=== PATIENT | female | born 1965 | race Caucasian/White ===

== ENCOUNTER → 2017-07-27 16:32 | Outpatient (CLI) | payer BC, SELFPAY ==
[2017-08-02 12:16] LABS: HPV APTIMA, High Risk Negative (Negative)
== END ==
PROVIDERS: Visit Provider Obstetrics & Gynecology
DX: Z12.4 Encounter for screening for malignant neoplasm of cervix (principal)
CPT/HCPCS: 88175; G0145

== ENCOUNTER 2017-08-02 07:11 | Day surgery (SDC) | payer BC, SELFPAY ==
[2017-08-02 07:31] VITALS: BP 114/94; PULSE 112; RESP 18; TEMP 37.2; O2SAT 94; BMI 49.6
--- NOTE | 2017-08-02 08:30 | COLBX_PTH ---
PATIENT: HONG KHAN LOC: EN U#:[id number] AGE/SX: 51/F ROOM: RE08/02/[address]: Dr. Devonte Julien MD : 1965 BED: DIS: 08/02/2017 SPEC #: [id number] RECD: 08/02/17 10:09 STATUS: SAUL NIKA #: [id number] ISIDRO: 08/02/17 08:[address]: Devonte Julien DEPT: SURGICAL PATHOLOGY RECD BY: Rasheed Drake ENTERED: 08/02/17 10:44 SP TYPE: COLON BX OTHR DR: Dr. Reyes Grimaldo MD Tissues: A - Ascending colon B - Transverse colon C - Sigmoid colon biopsy Procedures: Surgery Specimen Level IV HEADER OPERATION: Colonoscopy PRE-OP DIAGNOSIS: Screening TISSUE SUBMITTED: A ? Ascending colon polyp, B ? Transverse colon polyp (2), C ? Sigmoid polyp MICROSCOPIC DIAGNOSIS A. Ascending colon polyp, biopsy: Fragments of tubular adenoma. B. Transverse colon polyp, biopsy: Fragments of tubular adenoma. C. Sigmoid polyp, polypectomy: Tubular adenoma. SJ:sue 08/03/17 MICROSCOPIC DESCRIPTION Slides are reviewed. GROSS DESCRIPTION A - Received in fixative is one container labeled with the patient's name and designated ascending colon polyp. The specimen consists of multiple irregular fragments of light riley soft tissue that in aggregate measure 0.6 x 0.2 x 0.1 cm. The specimen is totally submitted in one cassette. B - Received in fixative is one container labeled with the patient's name and designated transverse colon polyp. The specimen consists of multiple irregular fragments of light riley soft tissue that in aggregate measure 0.6 x 0.3 x 0.1 cm. The specimen is totally submitted in one cassette. C - Received in fixative is one container labeled with the patient's name and designated sigmoid polyp. The specimen consists of a pink-riley polyp measuring 0.7 x 0.5 x 0.2 cm. The specimen is bisected and totally submitted in one cassette. / AM:sue 08/02/17 TC:1 CPT: 63432 x3
--- NOTE | 2017-08-02 08:45 | PCM.HP.STD ---
Problem List (1) Colon cancer screening Status: Acute History of Present Illness Date of Admission: 08/02/17 The patient is a 51 year old F who presents for screening colonoscopy. Past Medical History Allergies hydrocodone bitartrate [From Vicodin] Allergy (Verified 07/26/17 15:55) Rash erythromycin base Adverse Reaction (Verified 07/26/17 15:55) Vomiting Penicillins [PCN] Adverse Reaction (Verified 07/26/17 15:55) Upset Stomach Home Medications: Ambulatory Orders Medication Instructions Recorded Hydrochlorothiazide 12.5 mg PO DAILY 05/08/14 Ibuprofen [Advil] 200 mg PO Q4H PRN PRN 05/08/14 Ketorolac [Toradol] 20 mg PO PRN PRN 05/08/14 Potassium Chloride [Klor-Con 10] 10 meq PO DAILY 05/08/14 Smoking Status: Former smoker - *Family History Maternal History Items: No pertinent history VTE Information - Inpt Only VTE Present on Admission: No VTE Mechan Device Prophylaxis: None VTE Pharm Prophylaxis ordered?: No Reason prophylaxis not ordered:: Treatment Not Indicated Patient Problems: Active and Suspected Problems Colon cancer screening (Acute) - Physical Exam Lungs: Clear to auscultation Cardiovascular: Regular rate, Regular Rhythm, No murmurs Abdomen: Bowel Sounds Present, Soft, Non Tender, Non-Distended, Obese Vital Signs Temp Pulse Resp BP Pulse Ox 99.0 F 112 H 18 114/94 H 94 08/02/17 07:31 08/02/17 07:31 08/02/17 07:31 08/02/17 07:31 08/02/17 07:31 Oxygen Delivery Method Room Air Weight: 293 lb 14.019 oz Body Mass Index (BMI) 49.6 Assessment/Plan Active and Suspected Problems Colon cancer screening (Acute) My plan is to perform a colonoscopy on her.
--- NOTE | 2017-08-02 08:48 | PCM.OPRPT ---
Problem List (1) Colon cancer screening Status: Acute Report of Operation Date of Procedure: 08/02/17 Pre-Operative Diagnosis: z12.11 screening colonoscopy Post-Operative Diagnosis: Same Surgery/Procedure Performed:: 39090 colonoscopy with multiple snare polypectomies Description of Surgical Findings:: Patient had a polyp in the ascending colon, 2 in the transverse colon, and one large one in the sigmoid colon Type of Anesthesia:: MAC Anesthesiologist: Mustapha Vazquez Description of Procedure: Patient was brought in the operating room placed in supine position under excellent MAC anesthetic was placed in the left lateral decubitus position the scope was inserted into the rectum. Scope was directed through the sigmoid colon, descending colon, transverse colon, ascending colon, to the cecum. Operative findings: 1. Cecum: Normal appearance no mass lesions normal ileocecal valve. 2. Ascending colon: Normal appearance no mass lesions. Small polyp was identified and removed with snare cautery technique it was grasped with a basket and brought back to the channel the scope 3. Transverse colon: Normal appearance no mass lesions. 2 small polyps were identified and removed removed with snare cautery technique. One was brought back to the channel the scope the other was brought back after it was grasped with a basket. 4. Descending colon: Normal appearance no mass lesions 5. Sigmoid colon: Normal appearance diffuse scattered diverticuli were identified. Patient had a large polyp on a long stalk which was removed with snare cautery technique. I grasped it with a basket and brought it back as I exited the rectum. 6. Rectum: Small polyp was identified with a small stock I placed a snare around this and remove the polyp without difficulty and brought back to the channel the scope. Had excellent hemostasis. The scope was withdrawn. Digital rectal exam was performed showing a smooth anus with no masses . The patient will need another colonoscopy in 3 years. - Admit VTE Documentation VTE Present on Admission: No VTE Mechan Device Prophylaxis: None VTE Pharm Prophylaxis ordered?: No Reason prophylaxis not ordered:: Treatment Not Indicated
[2017-08-02 08:50] VITALS: BP 103/62; BP 114/94; PULSE 92; RESP 20; TEMP 36.9; O2SAT 94
[2017-08-02 08:55] VITALS: BP 114/94; BP 88/61; PULSE 93; RESP 16; O2SAT 92
[2017-08-02 09:00] VITALS: BP 107/67; BP 114/94; PULSE 88; RESP 16; O2SAT 92
[2017-08-02 09:05] VITALS: BP 114/94; BP 89/64; PULSE 85; RESP 16; TEMP 37.2; O2SAT 96
[2017-08-02 09:26] VITALS: BP 114/94
== END 2017-08-02 09:37 | disposition home or self-care (01) ==
LOC: EN 07:12 → AC 07:13
PROVIDERS: Family Provider Family Medicine; PCP Family Medicine; Visit Provider Surgery
PROC: 0DJD8ZZ Inspection of Lower Intestinal Tract, Via Natural or Artificial Opening Endoscopic (ICD-10-PCS; CPT 45378; principal; 2017-08-02 08:25)
DX: Z12.11 Encounter for screening for malignant neoplasm of colon (principal); D12.2 Benign neoplasm of ascending colon; D12.5 Benign neoplasm of sigmoid colon; D12.3 Benign neoplasm of transverse colon; I10 Essential (primary) hypertension; E04.1 Nontoxic single thyroid nodule; G47.30 Sleep apnea, unspecified; K21.9 Gastro-esophageal reflux disease without esophagitis; Z78.0 Asymptomatic menopausal state; Z79.899 Other long term (current) drug therapy; Z87.891 Personal history of nicotine dependence
CPT/HCPCS: 45385; 88305; J7120; J1610

== ENCOUNTER → 2017-08-23 14:19 | Outpatient (CLI) | payer BC, SELFPAY ==
--- NOTE | 2017-08-23 14:23 | BI_ITS ---
MAMMOGRAPHY - BILATERAL SCREENING REASON FOR EXAM: Female, 51 years old. Routine annual screening examination. PERTINENT HISTORY: Remote left excisional breast biopsy. TECHNIQUE: Digital bilateral breast dolores (3D mammographic acquisition) in the CC and MLO projections. 2-D mediolateral oblique (MLO) and craniocaudad (CC) views of both breasts were obtained. CAD: Full Field Digital Mammography with Computer Added Detection was performed. COMPARISON: Comparison is made with prior outside examination dated October 30, 2014. FINDINGS: Breast Composition: There are scattered areas of fibroglandular density. There are no dominant masses or suspicious calcifications. Stable bilateral small benign appearing axillary lymph nodes. No other significant abnormalities are identified. There has been no significant change since the prior study. BI/SCREENING MAMM (CAD), BILAT IMPRESSION: Stable bilateral screening mammogram. Yearly follow-up mammogram recommended. (A) ASSESSMENT CATEGORY: BIRADS Category 2: Benign. A letter regarding these results will be sent to the patient by the facility within 30 days. Approximately 10% of breast cancers are not detected by mammography. A normal mammogram should not delay biopsy of a clinically suspicious abnormality. [id number] Electronically Signed: Jarrett Hernández MD at 9:01 EDT Tel [phone], Service support ,
== END ==
PROVIDERS: Family Provider Family Medicine; PCP Family Medicine; Visit Provider Obstetrics & Gynecology
DX: Z12.31 Encounter for screening mammogram for malignant neoplasm of breast (principal)
CPT/HCPCS: 77063; 77067

== ENCOUNTER → 2019-05-10 14:28 | Outpatient (CLI) | payer BC, SELFPAY ==
[2019-05-10 15:31] LABS: Absolute Lymphocyte Count 3.39 X10^3/uL (0.83-4.51); Absolute Neutrophil Count 4.2 X10^3/uL (2.0-7.7); Basophil# 0.03 X10^3/uL; Basophil% 0.4 % (0-1); Eosinophil# 0.24 X10^3/uL; Eosinophils% 2.8 % (0-5); Hematocrit 46.8 % (37-47); Hemoglobin 14.1 g/dL (12.0-15.0); Lymphocyte # 3.39 X10^3/ul (4.0); Lymphocyte % 40.1 % (19-41); Mean Corp Hgb Conc 30.1 g/dL (32-36); Mean Corpuscular Hgb 25.9 pg (27.0-32.0); Mean Platelet Vol. 9.1 fl (6.2-12.0); Monocyte# 0.63 X10^3/uL; Monocyte% 7.4 % (0-10); NRBC Flagged by Analyzer 0 % (0-5); Neutrophil # 4.15 X10^3/uL (2.7-7.7); Neutrophil % 49.1 % (47-70); Platelet Count 388 K/mm3 (150-450); RBC Distribution Width CV 15.9 % (11.6-14.6); RBC Distribution Width SD 49.5 fl (35.1-43.9); Red Blood Count 5.44 M/mm3 (4.2-5.4); White Blood Count 8.5 K/mm3 (4.4-11.0)
[2019-05-10 16:16] LABS: Anion Gap 4 (5-15); BUN 9 mg/dL (7-18); BUN/Creat Ratio 8.9 RATIO (10-20); Calcium,Total 9.6 mg/dL (8.5-10.1); Chloride 102 mmol/L (98-107); Creatinine, Serum 1.01 mg/dL (0.55-1.02); EST Glomerular Filtration Rate 61 mL/min (>60); Est Glom Filt Rate - Afr Amer 74 mL/min (>60); Glucose 81 mg/dL (74-106); Potassium 3.5 mmol/L (3.5-5.1); Sodium Level 137 mmol/L (136-145); Thyroid Stim Hormone (TSH) 5.01 uIU/mL (0.358-3.74)
== END ==
PROVIDERS: PCP Family Medicine; Visit Provider Family Medicine
DX: I10 Essential (primary) hypertension (principal); E04.2 Nontoxic multinodular goiter
CPT/HCPCS: 36415; 80048; 84443; 85025

== ENCOUNTER → 2019-11-08 11:38 | Outpatient (CLI) | payer BC, SELFPAY ==
[2019-11-08 15:03] LABS: Absolute Lymphocyte Count 2.87 X10^3/uL (0.83-4.51); Absolute Neutrophil Count 4.6 X10^3/uL (2.0-7.7); Basophil# 0.04 X10^3/uL; Basophil% 0.5 % (0-1); Eosinophil# 0.16 X10^3/uL; Eosinophils% 1.9 % (0-5); Hematocrit 45.8 % (37-47); Hemoglobin 13.5 g/dL (12.0-15.0); Lymphocyte # 2.87 X10^3/ul (4.0); Lymphocyte % 34.2 % (19-41); Mean Corp Hgb Conc 29.5 g/dL (32-36); Mean Corpuscular Hgb 25.5 pg (27.0-32.0); Mean Corpuscular Volume 86.6 fL (81-99); Mean Platelet Vol. 9.1 fl (6.2-12.0); Monocyte# 0.64 X10^3/uL; Monocyte% 7.6 % (0-10); NRBC Flagged by Analyzer 0 % (0-5); Neutrophil # 4.64 X10^3/uL (2.7-7.7); Neutrophil % 55.4 % (47-70); Platelet Count 418 K/mm3 (150-450); RBC Distribution Width CV 16.6 % (11.6-14.6); RBC Distribution Width SD 50.1 fl (35.1-43.9); Red Blood Count 5.29 M/mm3 (4.2-5.4); White Blood Count 8.4 K/mm3 (4.4-11.0)
[2019-11-08 15:37] LABS: Ferritin 57 ng/mL (8-252); Iron 41 ug/dL (50-170); T4 Free Direct 1.07 ng/dL (0.76-1.46); Thyroid Stim Hormone (TSH) 3.11 uIU/mL (0.358-3.74)
== END ==
PROVIDERS: PCP Family Medicine; Visit Provider Family Medicine
DX: D64.9 Anemia, unspecified (principal); E03.9 Hypothyroidism, unspecified
CPT/HCPCS: 36415; 82728; 83540; 84439; 84443; 85025

== ENCOUNTER → 2019-11-20 12:14 | Outpatient (CLI) | payer BC, SELFPAY ==
--- NOTE | 2019-11-20 12:21 | RAD_ITS ---
STUDY: X-RAY - LEFT HAND REASON FOR EXAM: Female, 53 years old. Left ring finger pain and swelling, no injury TECHNIQUE: 3 view(s) of the hand. COMPARISON: None. FINDINGS: Normal radiocarpal articulation. Normal distal radioulnar joint. Normal visualized carpal bones. Normal carpal articulations Normal carpometacarpal articulation of the thumb. Normal second through fifth carpometacarpal joints. Normal metacarpi. Normal metacarpophalangeal joint of the thumb. Normal interphalangeal joint of the thumb. Normal proximal and distal phalanges of the thumb. Normal metacarpophalangeal joints of the second through fifth fingers. Normal proximal and distal interphalangeal joints of the second through fifth fingers. Normal phalanges of the second through fifth fingers. Soft tissue swelling of the third digit. RAD/Hand Min 3 Views IMPRESSION: Soft tissue swelling. Electronically Signed: Jarrett Hernández, at 12:10 EDT , Service support ,
== END ==
PROVIDERS: PCP Family Medicine; Referring Provider Family Medicine; Visit Provider Family Medicine
DX: M79.645 Pain in left finger(s) (principal)
CPT/HCPCS: 73130

== ENCOUNTER → 2020-01-19 14:28 | Outpatient (CLI) | payer BC, SELFPAY ==
[2019-12-15 09:33] VITALS: BMI 49.6
[2020-01-19 17:39] LABS: Absolute Lymphocyte Count 2.75 X10^3/uL (0.83-4.51); Absolute Neutrophil Count 4.8 X10^3/uL (2.0-7.7); Basophil# 0.03 X10^3/uL; Basophil% 0.4 % (0-1); Eosinophil# 0.11 X10^3/uL; Eosinophils% 1.3 % (0-5); Hematocrit 45.5 % (37-47); Hemoglobin 13.5 g/dL (12.0-15.0); Lymphocyte # 2.75 X10^3/ul (4.0); Lymphocyte % 33.2 % (19-41); Mean Corp Hgb Conc 29.7 g/dL (32-36); Mean Corpuscular Hgb 25.2 pg (27.0-32.0); Monocyte# 0.56 X10^3/uL; Monocyte% 6.8 % (0-10); NRBC Flagged by Analyzer 0 % (0-5); Neutrophil % 57.9 % (47-70); Platelet Count 446 K/mm3 (150-450); RBC Distribution Width CV 16.5 % (11.6-14.6); Red Blood Count 5.35 M/mm3 (4.2-5.4); White Blood Count 8.3 K/mm3 (4.4-11.0)
[2020-01-19 17:56] LABS: ALB/GLOB Ratio 0.6 RATIO (0.9-2.4); AST(SGOT) 18 U/L (15-37); Alanine Aminotransfer ALT/SGPT 25 U/L (13-56); Albumin, Serum 3.3 g/dL (3.2-5.0); Alkaline Phosphatase 92 U/L (45-117); Anion Gap 5 (5-15); BUN 12 mg/dL (7-18); BUN/Creat Ratio 10.5 RATIO (10-20); Calcium,Total 9.4 mg/dL (8.5-10.1); Chloride 98 mmol/L (98-107); Creatinine, Serum 1.14 mg/dL (0.55-1.02); EST Glomerular Filtration Rate 53 mL/min (>60); Est Glom Filt Rate - Afr Amer 64 mL/min (>60); Globulin 5.7 g/dL (2.2-4.2); Glucose 101 mg/dL (74-106); Potassium 3.4 mmol/L (3.5-5.1); Rheumatoid Factor < 10.0 IU/mL (<15); Sodium Level 134 mmol/L (136-145)
[2020-01-19 17:58] LABS: Erythrocyte Sedimentation Rate 64 mm/hr (0-30)
[2020-01-22 14:36] LABS: ANTINUCLEAR ANTIBODIES DIRECT Negative (Negative)
[2020-01-23 07:57] LABS: CCP IgG Antibodies 8 units (0-19); Hepatitis B Core AB IgM Negative (Negative)
[2020-01-24 09:36] LABS: Hepatitis B Surface Antigen Non-Reactive (Nonreactive); Hepatitis C Antibody Non-Reactive (Nonreactive)
== END ==
PROVIDERS: PCP Family Medicine; Referring Provider Internal Medicine Rheumatology; Visit Provider Internal Medicine Rheumatology
DX: M06.4 Inflammatory polyarthropathy (principal); M21.41 Flat foot [pes planus] (acquired), right foot; I10 Essential (primary) hypertension; J30.9 Allergic rhinitis, unspecified; R51.9 Headache, unspecified
CPT/HCPCS: 36415; 80053; 85025; 85652; 86038; 86140; 86200; 86431; 86705; 86706; 86803; 87340

== ENCOUNTER → 2020-03-05 15:06 | Outpatient (CLI) | payer BC, SELFPAY ==
[2019-12-15 09:33] VITALS: BMI 49.6
[2020-03-05 17:54] LABS: Absolute Lymphocyte Count 2.41 X10^3/uL (0.83-4.51); Absolute Neutrophil Count 4.2 X10^3/uL (2.0-7.7); Basophil# 0.03 X10^3/uL; Basophil% 0.4 % (0-1); Eosinophil# 0.06 X10^3/uL; Eosinophils% 0.8 % (0-5); Hematocrit 42.8 % (37-47); Hemoglobin 12.8 g/dL (12.0-15.0); Lymphocyte # 2.41 X10^3/ul (4.0); Lymphocyte % 33.9 % (19-41); Mean Corp Hgb Conc 29.9 g/dL (32-36); Mean Corpuscular Hgb 25.1 pg (27.0-32.0); Mean Corpuscular Volume 83.9 fL (81-99); Mean Platelet Vol. 8.8 fl (6.2-12.0); Monocyte# 0.41 X10^3/uL; Monocyte% 5.8 % (0-10); NRBC Flagged by Analyzer 0 % (0-5); Neutrophil # 4.18 X10^3/uL (2.7-7.7); Platelet Count 389 K/mm3 (150-450); RBC Distribution Width SD 53.9 fl (35.1-43.9); White Blood Count 7.1 K/mm3 (4.4-11.0)
[2020-03-05 18:32] LABS: ALB/GLOB Ratio 0.7 RATIO (0.9-2.4); AST(SGOT) 25 U/L (15-37); Alanine Aminotransfer ALT/SGPT 30 U/L (13-56); Albumin, Serum 3.4 g/dL (3.2-5.0); Alkaline Phosphatase 85 U/L (45-117); Anion Gap 8 (5-15); BUN 14 mg/dL (7-18); BUN/Creat Ratio 13.2 RATIO (10-20); Calcium,Total 9.4 mg/dL (8.5-10.1); Chloride 100 mmol/L (98-107); Creatinine, Serum 1.06 mg/dL (0.55-1.02); EST Glomerular Filtration Rate 57 mL/min (>60); Est Glom Filt Rate - Afr Amer 69 mL/min (>60); Globulin 4.9 g/dL (2.2-4.2); Glucose 101 mg/dL (74-106); Potassium 3.2 mmol/L (3.5-5.1); Protein, Total 8.3 g/dL (6.4-8.2); Sodium Level 137 mmol/L (136-145)
== END ==
PROVIDERS: PCP Family Medicine; Referring Provider Internal Medicine Rheumatology; Visit Provider Internal Medicine Rheumatology
DX: M06.4 Inflammatory polyarthropathy (principal); M21.41 Flat foot [pes planus] (acquired), right foot; I10 Essential (primary) hypertension; R51.9 Headache, unspecified; J30.9 Allergic rhinitis, unspecified; Z79.899 Other long term (current) drug therapy
CPT/HCPCS: 36415; 80053; 85025

== ENCOUNTER → 2020-04-23 15:35 | Outpatient (CLI) | payer BC, SELFPAY ==
[2019-12-15 09:33] VITALS: BMI 49.6
[2020-04-23 18:00] LABS: Absolute Lymphocyte Count 2.21 X10^3/uL (0.83-4.51); Absolute Neutrophil Count 3.8 X10^3/uL (2.0-7.7); Basophil# 0.03 X10^3/uL; Basophil% 0.4 % (0-1); Eosinophil# 0.16 X10^3/uL; Eosinophils% 2.4 % (0-5); Hematocrit 43.2 % (37-47); Hemoglobin 12.9 g/dL (12.0-15.0); Lymphocyte # 2.21 X10^3/ul (4.0); Lymphocyte % 32.7 % (19-41); Mean Corp Hgb Conc 29.9 g/dL (32-36); Mean Corpuscular Hgb 26.6 pg (27.0-32.0); Mean Corpuscular Volume 89.1 fL (81-99); Mean Platelet Vol. 9.1 fl (6.2-12.0); Monocyte% 7.4 % (0-10); NRBC Flagged by Analyzer 0 % (0-5); Neutrophil # 3.83 X10^3/uL (2.7-7.7); Neutrophil % 56.8 % (47-70); Platelet Count 413 K/mm3 (150-450); RBC Distribution Width CV 19.8 % (11.6-14.6); RBC Distribution Width SD 62.4 fl (35.1-43.9); Red Blood Count 4.85 M/mm3 (4.2-5.4); White Blood Count 6.8 K/mm3 (4.4-11.0)
[2020-04-23 18:27] LABS: ALB/GLOB Ratio 0.7 RATIO (0.9-2.4); AST(SGOT) 27 U/L (15-37); Alanine Aminotransfer ALT/SGPT 30 U/L (13-56); Albumin, Serum 3.2 g/dL (3.2-5.0); Alkaline Phosphatase 80 U/L (45-117); Anion Gap 7 (5-15); BUN 11 mg/dL (7-18); Chloride 101 mmol/L (98-107); Creatinine, Serum 1.22 mg/dL (0.55-1.02); EST Glomerular Filtration Rate 49 mL/min (>60); Est Glom Filt Rate - Afr Amer 59 mL/min (>60); Globulin 4.9 g/dL (2.2-4.2); Glucose 101 mg/dL (74-106); Potassium 3.4 mmol/L (3.5-5.1); Protein, Total 8.1 g/dL (6.4-8.2); Sodium Level 138 mmol/L (136-145)
== END ==
PROVIDERS: PCP Family Medicine; Referring Provider Internal Medicine Rheumatology; Visit Provider Internal Medicine Rheumatology
DX: M06.4 Inflammatory polyarthropathy (principal); M21.41 Flat foot [pes planus] (acquired), right foot; I10 Essential (primary) hypertension; R51.9 Headache, unspecified; J30.9 Allergic rhinitis, unspecified; Z79.899 Other long term (current) drug therapy
CPT/HCPCS: 36415; 80053; 85025

== ENCOUNTER → 2020-06-12 11:35 | Outpatient (CLI) | payer BC, SELFPAY ==
[2020-05-23 14:23] VITALS: BMI 48.4
[2020-06-12 13:10] LABS: Anion Gap 7 (5-15); BUN 10 mg/dL (7-18); BUN/Creat Ratio 10.3 RATIO (10-20); Calcium,Total 9.3 mg/dL (8.5-10.1); Chloride 104 mmol/L (98-107); Cholesterol 196 mg/dL (200); Creatinine, Serum 0.97 mg/dL (0.55-1.02); EST Glomerular Filtration Rate 64 mL/min (>60); Est Glom Filt Rate - Afr Amer 77 mL/min (>60); Glucose 81 mg/dL (74-106); High Density Lipoprotein 57 mg/dL; Potassium 4.2 mmol/L (3.5-5.1); Sodium Level 138 mmol/L (136-145); Triglycerides 106 mg/dL; Very Low Density Lipoprotein 21 mg/dL (5-40)
== END ==
PROVIDERS: PCP Internal Medicine; Referring Provider Internal Medicine; Visit Provider Internal Medicine
DX: I10 Essential (primary) hypertension (principal)
CPT/HCPCS: 36415; 80048; 80061

== ENCOUNTER 2020-07-04 14:08 | Outpatient (RCR) | payer BC, SELFPAY ==
[2020-05-23 14:23] VITALS: BMI 48.4
[2020-07-04] MEDS: COVID-19 VACC, MRNA(PFIZER)/PF 30 MCG/0.3 ML SYRINGE IM (11:35)
[2020-07-25] MEDS: COVID-19 VACC, MRNA(PFIZER)/PF 30 MCG/0.3 ML SYRINGE IM (11:26)
== END 2020-07-04 23:59 ==
LOC: IMMUN 14:08
PROVIDERS: PCP Internal Medicine; Visit Provider Family Medicine
DX: Z23 Encounter for immunization (principal)
CPT/HCPCS: 0001A; 0002A; 91300

== ENCOUNTER → 2020-07-11 08:19 | Outpatient (CLI) | payer BC, SELFPAY ==
[2020-07-05 10:00] VITALS: BMI 48.9
[2020-07-11 10:22] LABS: Absolute Lymphocyte Count 1.83 X10^3/uL (0.83-4.51); Absolute Neutrophil Count 3.2 X10^3/uL (2.0-7.7); Basophil# 0.03 X10^3/uL; Basophil% 0.5 % (0-1); Eosinophil# 0.14 X10^3/uL; Eosinophils% 2.5 % (0-5); Hematocrit 42.9 % (37-47); Hemoglobin 13.3 g/dL (12.0-15.0); Lymphocyte # 1.83 X10^3/ul (4.0); Lymphocyte % 32.2 % (19-41); Mean Corpuscular Hgb 26.9 pg (27.0-32.0); Mean Corpuscular Volume 86.8 fL (81-99); Mean Platelet Vol. 9.4 fl (6.2-12.0); Monocyte# 0.43 X10^3/uL; Monocyte% 7.6 % (0-10); NRBC Flagged by Analyzer 0 % (0-5); Neutrophil # 3.23 X10^3/uL (2.7-7.7); Neutrophil % 56.8 % (47-70); Platelet Count 326 K/mm3 (150-450); RBC Distribution Width CV 15.1 % (11.6-14.6); RBC Distribution Width SD 47.2 fl (35.1-43.9); Red Blood Count 4.94 M/mm3 (4.2-5.4); White Blood Count 5.7 K/mm3 (4.4-11.0)
[2020-07-11 10:42] LABS: ALB/GLOB Ratio 0.7 RATIO (0.9-2.4); AST(SGOT) 16 U/L (15-37); Alanine Aminotransfer ALT/SGPT 21 U/L (13-56); Albumin, Serum 3.4 g/dL (3.2-5.0); Alkaline Phosphatase 82 U/L (45-117); Anion Gap 7 (5-15); BUN 12 mg/dL (7-18); BUN/Creat Ratio 11.5 RATIO (10-20); Calcium,Total 9.3 mg/dL (8.5-10.1); Chloride 105 mmol/L (98-107); Creatinine, Serum 1.04 mg/dL (0.55-1.02); EST Glomerular Filtration Rate 59 mL/min (>60); Est Glom Filt Rate - Afr Amer 71 mL/min (>60); Globulin 4.8 g/dL (2.2-4.2); Glucose 95 mg/dL (74-106); Potassium 3.7 mmol/L (3.5-5.1); Protein, Total 8.2 g/dL (6.4-8.2); Sodium Level 139 mmol/L (136-145)
== END ==
PROVIDERS: PCP Internal Medicine; Referring Provider Internal Medicine Rheumatology; Visit Provider Internal Medicine Rheumatology
DX: M06.4 Inflammatory polyarthropathy (principal); M21.41 Flat foot [pes planus] (acquired), right foot; I10 Essential (primary) hypertension; J30.9 Allergic rhinitis, unspecified; R51.9 Headache, unspecified; Z79.899 Other long term (current) drug therapy
CPT/HCPCS: 36415; 80053; 85025

== ENCOUNTER 2020-08-27 08:38 | Day surgery (SDC) | payer BC, SELFPAY ==
[2020-07-05 10:00] VITALS: BMI 48.9
[2020-08-27 09:20] VITALS: BP 125/97; PULSE 104; RESP 18; TEMP 37; O2SAT 97; BMI 46.8
[2020-08-27] MEDS: Lactated Ringers 1,000 ML 100 ML IV (09:30)
--- NOTE | 2020-08-27 09:40 | HP.PCM_ITS ---
HPI - General [facility] Narrative HONG KHAN, is a 54 F who presents for surveillance colonoscopy. The patient had her last colonoscopy 3 years ago and there were multiple polyps. The patient is having no abdominal pain or blood in her stool. She denies any family history of colon cancer. [facility] Medical History (Updated 08/27/20 @ 09:[address] Renzo Herring MD) Frequent headaches History of breast lump History of pneumonia history of right elbow fracture Hypertension Hypertension Migraines Post-menopausal Rheumatoid arthritis Seasonal allergies Sleep apnea Wears glasses Home Medications acetaminophen 325 mg capsule 325 mg PO ONCE PRN 05/23/20 [History Last Taken Unknown] hydroxychloroquine 200 mg tablet 200 mg PO BID 05/23/20 [History Last Taken Unknown] ketorolac 10 mg tablet 10 mg PO BID PRN tab 05/23/20 [History Last Taken Unknown] loratadine 10 mg tablet 10 mg PO DAILY 05/23/20 [History Last Taken Unknown] melatonin 5 mg capsule 5 mg PO QHS 05/23/20 [History Last Taken Unknown] prednisone 10 mg tablet 10 mg PO DAILY PRN 05/23/20 [History Last Taken Unknown] z quil PO 05/23/20 [History Last Taken Unknown] amlodipine 5 mg tablet 5 mg PO DAILY #90 tablet 07/05/20 [Rx Last Taken 08/27/20 07:00] methotrexate sodium 2.5 mg PO QWEEK 08/21/20 [History Last Taken Unknown] Allergy/AdvReac Type Severity Reaction Status Date / Time hydrocodone bitartrate Allergy Rash Verified 08/27/20 09:18 [From Vicodin] erythromycin base AdvReac Vomiting Verified 08/27/20 09:18 Penicillins [PCN] AdvReac Upset Verified 08/27/20 09:18 Stomach Family History (Updated 05/23/20 @ 11:26 by Patsy Howe) Mother Anxiety and depression Arthritis Father Hypertension Grandmother Osteoporosis Surgical History (Updated 08/21/20 @ 13:19 by Nan Magana) History of breast biopsy History of carpal tunnel surgery History of endometrial ablation Hx of colonoscopy S/P thyroid biopsy Social History (Updated 05/23/20 @ 14:34 by Patsy Howe) Smoking Status: Never smoker alcohol intake: never substance use type: does not use what type of physical activity do you participate in: none Past Medical/Surgical History Planned Operation Planned Operative Procedure/s: Colonoscopy S.O.S: No Previous Hospitalizations/Surgeries HX Hospitalizations: No HX of Surgeries: BREAST LUMPECTOMY LEFT CARPAL TUNNEL RIGHT WRIST HOSPITALIZED FOR PNEUMONIA ABOUT AGE 33 WISDOM TEETH REMOVED ADULT HYTEROSCOPY, D&C 2014 Any Problems With Anesthesia: No You/Your Family Experience Fever (Hyperthermia) With Anes: No Cholinesterase deficiency: No Cardiovascular Hx Chest Pain within Last 2 months: No Hx of Irregular Heartbeat and/or Afib: No Hx Heart Attack: No Hx Congestive Heart Failure: No Hx Rheumatic Fever: No Hx Hypertension: Yes Hx Internal Defibrillator: No Hx Pacemaker: No Hx Cardiac Catheterization: No Hx Cardiac Surgery/Stents/Etc.: No Hx Stress Test: No Hx Pain in Legs when Walking/Leg Cramps: No Respiratory Chronic Cough: No HX of Shortness of Breath: Yes Hoarseness: No Hx Chronic Obstructive Pulmonary Disease (COPD): No Hx Asthma: No Hx Emphysema: No Hx Sleep Apnea: Yes CPAP: No BIPAP: No Hx Respiratory Tract Infection/Cold (presently): No Result (for STOP score): Positive Hx Smoking: Yes (QUIT ABOUT AGE 44) Smoking Status: Never smoker Gastrointestinal Hx Gastroesophageal Reflux: Yes Controlled With Meds: Yes (TUMS PRN) Hx Gastrointestinal Disorders: No Hx Gastrointestinal Bleed: No Hx Ulcer: No Hx Hiatal Hernia: No Difficulty Chewing/Swallowing: No Special diet followed at home: No Hx Unplanned Weight Loss of 20#: No HX Unplanned Weight Gain of 20#: No Neurological Hx Seizures: No HX Syncope/Blackout Spells/Unconsciousness: No Hx Transient Ischemic Attacks (TIA): No Hx Multiple Sclerosis: No Hx Parkinson's Disease: No Hx Head/Neck Injury: No Hx Headaches: Yes (MIGRAINES, TAKES TORADOL PRN) Hx Back Injury/Pain: No Recent Onset of Speech Difficulty: No Restless Legs: No Does patient have nerve stimulator: No Blood Disorder Hx Leukemia: No Bleeding Tendencies: No Hx Deep Vein Thrombosis: No Hx High Cholesterol: No Blood Transmitted Disease: No Hx Hepatitis: No Hx Cirrhosis: No Hx Anemia: No Hx Blood Disorders: No Reproduction : No Is Patient Lactating: No Hx Hysterectomy: No Hx Tubal Ligation: No Are You Post Menopause: Yes Genitourinary Hx Renal Disease: No Musculoskeletal Hx Arthritis: No Hx Rheumatoid Arthritis: No Hx Gout: No Recent Onset of an Orthopedic Problem: No Endocrine Hx Diabetes: No Thyroid Disease: Yes (HAS NODULE. NO MEDS) Hx Steroid Therapy: No Psycho/Social Hx Substance Use: No Hx Alcohol Use: No Hx Anxiety: No Hx Depression: No Mental Illness: No Hx Dementia: No Miscellaneous Hx Cancer: No Recent Exposure to Contagious Disease: No Hx of C-Diff: No Any Loose Teeth: No Allergies hydrocodone bitartrate [From Vicodin] Allergy (Verified 08/27/20 09:18) Rash erythromycin base Adverse Reaction (Verified 08/27/20 09:18) Vomiting Penicillins [PCN] Adverse Reaction (Verified 08/27/20 09:18) Upset Stomach Maternal: Family History (Updated 05/23/20 @ 11:26 by Patsy Howe) Mother Anxiety and depression Arthritis Father Hypertension Grandmother Osteoporosis No pertinent history Discharge Is Pt Admitted From a Fdc, or a Long Term: No After D/C, Where Do you Plan to Go: Return Home Vital Signs Vital Signs Vital Signs: 08/27/20 09:20 Temperature 98.6 F Temperature Source Temporal Pulse Rate 104 H Respiratory Rate 18 Respiratory Pattern Normal Blood Pressure 125/97 H Blood Pressure Mean 106 Blood Pressure Source Monitor Blood Pressure Position Sitting Blood Pressure Location Left Arm Pulse Ox 97 Oxygen Delivery Method Room Air Physical Exam Const alert and oriented x3 Resp normal respiratory effort and normal air movement Cardio regular rate and regular rhythm GI soft to palpation, non-tender and non-distended Assessment & Plan Assessment/Plan (1) Colon polyps: QUALIFIERS: Colon polyp type: adenomatous Colon location: unspecified part of colon Qualified Code(s): D12.6 - Benign neoplasm of colon, unspecified PLAN: Patient has a history of colon polyps and requires a repeat colonoscopy 3 years later for surveillance. I explained endoscopy in detail to the patient. I explained the risks including but not limited to stroke or heart attack with anesthesia, perforation of the GI tract, bleeding, infection. I explained that any of these could necessitate further emergency surgery. The patient understands and all questions were answered sufficiently. The patient wishes to proceed with procedure. Renzo Herring MD Pager: [facility] [address] [place] [address], [address] [place] [address] Office: Surgery Risks - Colonoscopy Risks Include but are not Limited To: Risks include but are not limited to: Bleeding, perforation requiring further surgery, inability to complete colonoscopy requiring barium enema.
--- NOTE | 2020-08-27 10:00 | OP.COLON_ITS ---
Patient Name: Mary Muro Procedure Date: 08/27/2020 9:40 AM Date of : 1965 Age: 54 Procedure: Colonoscopy Indications: Surveillance: Personal history of adenomatous polyps on last colonoscopy 3 years ago Providers: Renzo Herring MD Referring MD: Nicky Covarrubias MD Medicines: Monitored Anesthesia Care Patient Profile: This is a 54 year old female. Refer to note in patient chart for documentation of history and physical. Last Colonoscopy: 3 years ago. Complications: No immediate complications. Procedure: Pre-Anesthesia Assessment: - Prior to the procedure, a History and Physical was performed, and patient medications and allergies were reviewed. The patient's tolerance of previous anesthesia was also reviewed. The risks and benefits of the procedure and the sedation options and risks were discussed with the patient. All questions were answered, and informed consent was obtained. Prior Anticoagulants: The patient has taken no previous anticoagulant or antiplatelet agents. After reviewing the risks and benefits, the patient was deemed in satisfactory condition to undergo the procedure. After I obtained informed consent, the scope was passed under direct vision. Throughout the procedure, the patient's blood pressure, pulse, and oxygen saturations were monitored continuously. The colonoscope was introduced through the anus and advanced to the cecum, identified by appendiceal orifice and ileocecal valve. The colonoscopy was performed without difficulty. The patient tolerated the procedure well. The quality of the bowel preparation was good. Scope In: 9:50:26 AM Scope Withdrawal Time 0 hours 6 minutes 9 seconds Scope Out: 9:58:14 AM Total Procedure Duration Time 0 hours 7 minutes 48 seconds Findings: The entire examined colon appeared normal on direct and retroflexion views. Impression: - The entire examined colon is normal on direct and retroflexion views. - No specimens collected. Recommendation: - Discharge patient to home. - Resume previous diet. - Continue present medications. - Repeat colonoscopy in 5 years for surveillance. Procedure Code(s): --- Professional --- 59051, Colonoscopy, flexible; diagnostic, including collection of specimen(s) by brushing or washing, when performed (separate procedure) Diagnosis Code(s): --- Professional --- Z86.010, Personal history of colonic polyps CPT copyright 2017 [employer]. All rights reserved. The codes documented in this report are preliminary and upon oil mixer review may be revised to meet current compliance requirements. Renzo Herring MD 08/27/2020 10:00:13 AM This report has been signed electronically. Number of Addenda: 0 Note Initiated On: 08/27/2020 9:40 AM
--- NOTE | 2020-08-27 10:00 | OP.CCLET_ITS ---
08/27/2020 Nicky Covarrubias MD [address] [place] [address] [place] [address] Re : Colonoscopy procedure for Mary Ryanler Dear Dr. Covarrubias This procedure was performed on Thursday, August 27, 2020. My impressions and recommendations are as follows: Impressions : - The entire examined colon is normal on direct and retroflexion views. - No specimens collected. Recommendations : - Discharge patient to home. - Resume previous diet. - Continue present medications. - Repeat colonoscopy in 5 years for surveillance. My findings are described in the full procedure note, which is enclosed. If I can be of further assistance, please feel free to contact me at Doctor phone number(s): , Work: . Sincerely, Renzo Herring MD 08/27/2020 10:00:13 AM This report has been signed electronically.
[2020-08-27 10:06] VITALS: BP 125/97; BP 95/62; PULSE 89; RESP 16; TEMP 36.8; O2SAT 93
[2020-08-27 10:10] VITALS: BP 108/73; BP 125/97; PULSE 88; RESP 16; O2SAT 94
[2020-08-27 10:15] VITALS: BP 109/65; BP 125/97; PULSE 88; RESP 16; O2SAT 94
[2020-08-27 10:17] VITALS: BP 109/73; BP 125/97; PULSE 92; RESP 16; TEMP 36.9; O2SAT 98
[2020-08-27 10:34] VITALS: BP 125/97
== END 2020-08-27 10:36 ==
LOC: EN 08:41 → AC 08:41
PROVIDERS: PCP Internal Medicine; Referring Provider Internal Medicine; Visit Provider Surgery
PROC: 0DJD8ZZ Inspection of Lower Intestinal Tract, Via Natural or Artificial Opening Endoscopic (ICD-10-PCS; CPT 45378; principal; 2020-08-27 09:40)
DX: Z12.11 Encounter for screening for malignant neoplasm of colon (principal); G47.30 Sleep apnea, unspecified; I10 Essential (primary) hypertension; M06.9 Rheumatoid arthritis, unspecified; G43.909 Migraine, unspecified, not intractable, without status migrainosus; Z79.899 Other long term (current) drug therapy; Z87.891 Personal history of nicotine dependence; Z86.010 Personal history of colon polyps
CPT/HCPCS: 45378; J7120; J2405

== ENCOUNTER → 2020-08-29 12:14 | Outpatient (CLI) | payer BC, SELFPAY ==
[2020-07-05 10:00] VITALS: BMI 48.9
[2020-08-27 09:20] VITALS: BMI 46.8
[2020-08-29 15:14] LABS: Absolute Neutrophil Count 3.1 X10^3/uL (2.0-7.7); Basophil# 0.03 X10^3/uL; Basophil% 0.5 % (0-1); Eosinophil# 0.18 X10^3/uL; Hematocrit 43.6 % (37-47); Mean Corp Hgb Conc 29.8 g/dL (32-36); Mean Corpuscular Volume 87.2 fL (81-99); Mean Platelet Vol. 9.3 fl (6.2-12.0); Monocyte# 0.44 X10^3/uL; Monocyte% 7.3 % (0-10); NRBC Flagged by Analyzer 0 % (0-5); Neutrophil # 3.09 X10^3/uL (2.7-7.7); Neutrophil % 50.9 % (47-70); Platelet Count 338 K/mm3 (150-450); RBC Distribution Width CV 16.5 % (11.6-14.6); RBC Distribution Width SD 51.8 fl (35.1-43.9); White Blood Count 6.1 K/mm3 (4.4-11.0)
[2020-08-29 15:24] LABS: ALB/GLOB Ratio 0.7 RATIO (0.9-2.4); AST(SGOT) 21 U/L (15-37); Alanine Aminotransfer ALT/SGPT 27 U/L (13-56); Albumin, Serum 3.3 g/dL (3.2-5.0); Alkaline Phosphatase 87 U/L (45-117); Anion Gap 4 (5-15); BUN 10 mg/dL (7-18); BUN/Creat Ratio 11.4 RATIO (10-20); Calcium,Total 8.8 mg/dL (8.5-10.1); Chloride 103 mmol/L (98-107); Creatinine, Serum 0.88 mg/dL (0.55-1.02); EST Glomerular Filtration Rate 71 mL/min (>60); Est Glom Filt Rate - Afr Amer 86 mL/min (>60); Globulin 4.7 g/dL (2.2-4.2); Glucose 88 mg/dL (74-106); Potassium 3.7 mmol/L (3.5-5.1); Sodium Level 137 mmol/L (136-145)
== END ==
PROVIDERS: PCP Internal Medicine; Referring Provider Internal Medicine Rheumatology; Visit Provider Internal Medicine Rheumatology
DX: M06.4 Inflammatory polyarthropathy (principal); M21.41 Flat foot [pes planus] (acquired), right foot; I10 Essential (primary) hypertension; R51.9 Headache, unspecified; J30.9 Allergic rhinitis, unspecified; Z79.899 Other long term (current) drug therapy
CPT/HCPCS: 36415; 80053; 85025

== ENCOUNTER → 2020-09-30 11:30 | Outpatient (CLI) | payer BC, SELFPAY ==
[2020-09-30 15:47] LABS: Anion Gap 7 (5-15); BUN 7 mg/dL (7-18); BUN/Creat Ratio 7.5 RATIO (10-20); Calcium,Total 9.3 mg/dL (8.5-10.1); Chloride 102 mmol/L (98-107); Creatinine, Serum 0.93 mg/dL (0.55-1.02); EST Glomerular Filtration Rate 66 mL/min (>60); Est Glom Filt Rate - Afr Amer 80 mL/min (>60); Glucose 85 mg/dL (74-106); Potassium 3.7 mmol/L (3.5-5.1); Sodium Level 140 mmol/L (136-145)
== END ==
PROVIDERS: PCP Internal Medicine; Referring Provider Internal Medicine; Visit Provider Internal Medicine
DX: I10 Essential (primary) hypertension (principal)
CPT/HCPCS: 36415; 80048

== ENCOUNTER → 2020-11-27 11:23 | Outpatient (CLI) | payer BC, SELFPAY ==
[2020-10-03 14:04] VITALS: BMI 46.8
[2020-11-27 12:17] LABS: Absolute Lymphocyte Count 2.01 X10^3/uL (0.83-4.51); Absolute Neutrophil Count 3.3 X10^3/uL (2.0-7.7); Basophil# 0.02 X10^3/uL; Basophil% 0.3 % (0-1); Eosinophil# 0.16 X10^3/uL; Eosinophils% 2.7 % (0-5); Hemoglobin 13.4 g/dL (12.0-15.0); Lymphocyte # 2.01 X10^3/ul (0.83-4.51); Mean Corp Hgb Conc 29.8 g/dL (32-36); Mean Corpuscular Volume 90.5 fL (81-99); Mean Platelet Vol. 9.1 fl (6.2-12.0); Monocyte# 0.43 X10^3/uL; Monocyte% 7.3 % (0-10); NRBC Flagged by Analyzer 0 % (0-5); Neutrophil # 3.28 X10^3/uL (2.7-7.7); Neutrophil % 55.4 % (47-70); Platelet Count 332 K/mm3 (150-450); RBC Distribution Width CV 16.2 % (11.6-14.6); RBC Distribution Width SD 54.3 fl (35.1-43.9); Red Blood Count 4.97 M/mm3 (4.2-5.4); White Blood Count 5.9 K/mm3 (4.4-11.0)
[2020-11-27 12:37] LABS: ALB/GLOB Ratio 0.8 RATIO (0.9-2.4); AST(SGOT) 33 U/L (15-37); Alanine Aminotransfer ALT/SGPT 34 U/L (13-56); Albumin, Serum 3.6 g/dL (3.2-5.0); Alkaline Phosphatase 85 U/L (45-117); Anion Gap 6 (5-15); BUN 9 mg/dL (7-18); Calcium,Total 9.4 mg/dL (8.5-10.1); Chloride 102 mmol/L (98-107); Creatinine, Serum 0.82 mg/dL (0.55-1.02); EST Glomerular Filtration Rate 77 mL/min (>60); Est Glom Filt Rate - Afr Amer 93 mL/min (>60); Globulin 4.8 g/dL (2.2-4.2); Glucose 90 mg/dL (74-106); Potassium 3.9 mmol/L (3.5-5.1); Protein, Total 8.4 g/dL (6.4-8.2); Sodium Level 138 mmol/L (136-145)
== END ==
PROVIDERS: PCP Internal Medicine; Referring Provider Internal Medicine Rheumatology; Visit Provider Internal Medicine Rheumatology
DX: M06.4 Inflammatory polyarthropathy (principal); I10 Essential (primary) hypertension; M21.41 Flat foot [pes planus] (acquired), right foot; R51.9 Headache, unspecified; J30.9 Allergic rhinitis, unspecified; Z79.899 Other long term (current) drug therapy
CPT/HCPCS: 36415; 80053; 85025

== ENCOUNTER → 2021-01-30 10:54 | Outpatient (CLI) | payer BC, SELFPAY ==
[2021-01-30 12:02] LABS: Absolute Lymphocyte Count 2.08 X10^3/uL (0.83-4.51); Absolute Neutrophil Count 3.8 X10^3/uL (2.0-7.7); Basophil# 0.03 X10^3/uL; Basophil% 0.5 % (0-1); Eosinophil# 0.14 X10^3/uL; Eosinophils% 2.2 % (0-5); Hematocrit 43.4 % (37-47); Hemoglobin 13.2 g/dL (12.0-15.0); Lymphocyte # 2.08 X10^3/ul (0.83-4.51); Lymphocyte % 33.1 % (19-41); Mean Corp Hgb Conc 30.4 g/dL (32-36); Mean Corpuscular Hgb 27.5 pg (27.0-32.0); Mean Corpuscular Volume 90.4 fL (81-99); Monocyte# 0.24 X10^3/uL; Monocyte% 3.8 % (0-10); NRBC Flagged by Analyzer 0 % (0-5); Neutrophil # 3.77 X10^3/uL (2.7-7.7); Neutrophil % 59.9 % (47-70); Platelet Count 369 K/mm3 (150-450); RBC Distribution Width CV 15.7 % (11.6-14.6); White Blood Count 6.3 K/mm3 (4.4-11.0)
[2021-01-30 12:16] LABS: ALB/GLOB Ratio 0.7 RATIO (0.9-2.4); AST(SGOT) 16 U/L (15-37); Alanine Aminotransfer ALT/SGPT 26 U/L (13-56); Albumin, Serum 3.3 g/dL (3.2-5.0); Alkaline Phosphatase 85 U/L (45-117); Anion Gap 5 (5-15); BUN 10 mg/dL (7-18); BUN/Creat Ratio 9.9 RATIO (10-20); Calcium,Total 9.2 mg/dL (8.5-10.1); Chloride 103 mmol/L (98-107); Creatinine, Serum 1.01 mg/dL (0.55-1.02); EST Glomerular Filtration Rate 61 mL/min (>60); Est Glom Filt Rate - Afr Amer 73 mL/min (>60); Glucose 91 mg/dL (74-106); Protein, Total 8.3 g/dL (6.4-8.2); Sodium Level 137 mmol/L (136-145)
== END ==
PROVIDERS: PCP Internal Medicine; Referring Provider Internal Medicine Rheumatology; Visit Provider Internal Medicine Rheumatology
DX: M06.4 Inflammatory polyarthropathy (principal); M21.41 Flat foot [pes planus] (acquired), right foot; I10 Essential (primary) hypertension; R51.9 Headache, unspecified; J30.9 Allergic rhinitis, unspecified; Z79.899 Other long term (current) drug therapy
CPT/HCPCS: 36415; 80053; 85025

== ENCOUNTER → 2021-04-01 | Outpatient (CLI) | payer BC, SELFPAY | END | disposition home or self-care (01) | LOC: LABSPEC 13:02 | PROVIDERS: PCP Internal Medicine; Visit Provider Physician Assistant | DX: Z20.822 Contact with and (suspected) exposure to COVID-19 (principal); R50.9 Fever, unspecified | CPT/HCPCS: 87635; U0005; U0003 ==

== ENCOUNTER 2021-04-22 11:43 | Outpatient (CLI) | payer BC, SELFPAY ==
[2021-04-22 14:56] LABS: Absolute Lymphocyte Count 2.01 X10^3/uL (0.83-4.51); Absolute Neutrophil Count 4.5 X10^3/uL (2.0-7.7); Basophil# 0.04 X10^3/uL; Basophil% 0.6 % (0-1); Eosinophils% 1.4 % (0-5); Hematocrit 45.3 % (37-47); Hemoglobin 13.7 g/dL (12.0-15.0); Lymphocyte # 2.01 X10^3/ul (0.83-4.51); Lymphocyte % 28.1 % (19-41); Mean Corp Hgb Conc 30.2 g/dL (32-36); Mean Corpuscular Volume 89.3 fL (81-99); Mean Platelet Vol. 9.5 fl (6.2-12.0); Monocyte# 0.52 X10^3/uL; Monocyte% 7.3 % (0-10); NRBC Flagged by Analyzer 0 % (0-5); Neutrophil # 4.46 X10^3/uL (2.7-7.7); Neutrophil % 62.3 % (47-70); Platelet Count 389 K/mm3 (150-450); RBC Distribution Width CV 15.6 % (11.6-14.6); Red Blood Count 5.07 M/mm3 (4.2-5.4); White Blood Count 7.2 K/mm3 (4.4-11.0)
[2021-04-22 15:23] LABS: ALB/GLOB Ratio 0.6 RATIO (0.9-2.4); AST(SGOT) 24 U/L (15-37); Alanine Aminotransfer ALT/SGPT 28 U/L (13-56); Albumin, Serum 3.3 g/dL (3.2-5.0); Alkaline Phosphatase 90 U/L (45-117); Anion Gap 8 (5-15); BUN 8 mg/dL (7-18); BUN/Creat Ratio 8.8 RATIO (10-20); Calcium,Total 9.3 mg/dL (8.5-10.1); Chloride 102 mmol/L (98-107); Creatinine, Serum 0.91 mg/dL (0.55-1.02); EST Glomerular Filtration Rate 68 mL/min (>60); Est Glom Filt Rate - Afr Amer 83 mL/min (>60); Globulin 5.1 g/dL (2.2-4.2); Glucose 79 mg/dL (74-106); Potassium 3.9 mmol/L (3.5-5.1); Protein, Total 8.4 g/dL (6.4-8.2); Sodium Level 137 mmol/L (136-145)
== END 2021-04-22 23:59 | disposition short-term general hospital (02) ==
LOC: MTLAB 11:48
PROVIDERS: PCP Internal Medicine; Referring Provider Internal Medicine Rheumatology; Visit Provider Internal Medicine Rheumatology
DX: M06.4 Inflammatory polyarthropathy (principal); Z79.899 Other long term (current) drug therapy; M21.41 Flat foot [pes planus] (acquired), right foot; I10 Essential (primary) hypertension; R51.9 Headache, unspecified; J30.9 Allergic rhinitis, unspecified
CPT/HCPCS: 36415; 80053; 85025

== ENCOUNTER 2021-04-28 13:57 | Outpatient (CLI) | payer BC, SELFPAY ==
[2020-10-03 14:04] VITALS: BMI 46.8
--- NOTE | 2021-04-28 14:00 | US_ITS ---
STUDY: THYROID ULTRASOUND REASON FOR EXAM: Female, 55 years old. Thyroid Nodules TECHNIQUE: Ultrasound evaluation of the thyroid was performed with real-time and static to-scale imaging. COMPARISON: 01.25.17 FINDINGS: RIGHT LOBE: The right lobe of the thyroid gland measures 4.5 x 1.4 cm. There is a heterogeneous echotexture. There are nodules. 3 total nodules. These measure 4 x 4 by 2 mm (The lesion is solid with regular margins and pau nodular doppler flow. ), 12 x 10 x 5 mm (The lesion is solid with regular margins and pau nodular doppler flow.) , and 3 x 2 x 2 mm (The lesion is cystic with regular margins and pau nodular doppler flow. ). LEFT LOBE: The left lobe of the thyroid gland measures 4 x 1.3 cm. There is a homogeneous echotexture. There are nodules. 3 nodules. These measure 8 x 5 x 5 mm (The lesion is solid with regular margins and pau nodular doppler flow. ) , 9 x 9 x 8 mm (The lesion is solid with regular margins and pau nodular doppler flow. ), and 4 x 4 by 3 mm (The lesion is solid with regular margins and pau nodular doppler flow. ). ISTHMUS: The isthmus measures 4 mm. The regional lymph nodes are normal. US/Thyroid IMPRESSION: There are RIGHT nodules. This nodule is solid or almost completely solid, anechoic, [id number], smoothly marginated and contains no echogenic foci. TI-RADS points: 2. TI-RADS category: TR2. This nodule is not suspicious and no FNA or follow-up is necessary. There are left nodules. TR2: Not Suspicious: No FNA Electronically Signed: Luis Tsang MD at 17:17 EST , Service support ,
--- NOTE | 2021-04-28 14:00 | BI_ITS ---
MAMMOGRAPHY - BILATERAL SCREENING REASON FOR EXAM: Female, 55 years old. Routine annual screening examination. PERTINENT HISTORY: Non-contributory. Remote left excisional breast biopsy. History of prior bilateral neural breast biopsies. TECHNIQUE: Digital bilateral breast glendy (3D mammographic acquisition) in the CC and MLO projections. 2-D mediolateral oblique (MLO) and craniocaudad (CC) views of both breasts were obtained. CAD: Full Field Digital Mammography with Computer Added Detection was performed. COMPARISON: Comparison is made with prior study dated 08/23/2017. FINDINGS: Breast Composition: There are scattered areas of fibroglandular density. There are no dominant masses or suspicious calcifications. Stable small benign-appearing bilateral axillary lymph nodes. No other significant abnormalities are identified. There has been no significant change since the prior study. BI/SCRN MAMM (CAD)W/GLENDY BILAT IMPRESSION: Stable bilateral screening mammogram. Yearly follow-up mammogram recommended. (A) ASSESSMENT CATEGORY: BIRADS Category 2: Benign. A letter regarding these results will be sent to the patient by the facility within 30 days. Approximately 10% of breast cancers are not detected by mammography. A normal mammogram should not delay biopsy of a clinically suspicious abnormality. [id number] Electronically Signed: Jarrett Hernández MD at 14:57 EST , Service support ,
== END 2021-04-28 23:59 | disposition short-term general hospital (02) ==
LOC: US 13:59
PROVIDERS: PCP Internal Medicine; Referring Provider Internal Medicine; Visit Provider Internal Medicine
DX: Z12.31 Encounter for screening mammogram for malignant neoplasm of breast (principal); E04.1 Nontoxic single thyroid nodule
CPT/HCPCS: 76536; 77063; 77067

== ENCOUNTER 2021-07-04 11:21 | Outpatient (CLI) | payer BC, SELFPAY ==
[2021-07-04 13:29] LABS: Absolute Lymphocyte Count 2.19 X10^3/uL (0.83-4.51); Absolute Neutrophil Count 3.4 X10^3/uL (2.0-7.7); Basophil# 0.04 X10^3/uL; Basophil% 0.6 % (0-1); Eosinophil# 0.17 X10^3/uL; Eosinophils% 2.6 % (0-5); Hematocrit 44.1 % (37-47); Hemoglobin 13.6 g/dL (12.0-15.0); Lymphocyte # 2.19 X10^3/ul (0.83-4.51); Lymphocyte % 34.1 % (19-41); Mean Corp Hgb Conc 30.8 g/dL (32-36); Mean Corpuscular Hgb 27.9 pg (27.0-32.0); Mean Corpuscular Volume 90.4 fL (81-99); Mean Platelet Vol. 9.4 fl (6.2-12.0); Monocyte# 0.56 X10^3/uL; Monocyte% 8.7 % (0-10); NRBC Flagged by Analyzer 0 % (0-5); Neutrophil # 3.44 X10^3/uL (2.7-7.7); Neutrophil % 53.7 % (47-70); Platelet Count 379 K/mm3 (150-450); RBC Distribution Width SD 53.1 fl (35.1-43.9); Red Blood Count 4.88 M/mm3 (4.2-5.4); White Blood Count 6.4 K/mm3 (4.4-11.0)
[2021-07-04 14:12] LABS: ALB/GLOB Ratio 0.8 RATIO (0.9-2.4); AST(SGOT) 17 U/L (15-37); Alanine Aminotransfer ALT/SGPT 23 U/L (13-56); Albumin, Serum 3.7 g/dL (3.2-5.0); Alkaline Phosphatase 92 U/L (45-117); Anion Gap 3 (5-15); BUN 9 mg/dL (7-18); BUN/Creat Ratio 9.8 RATIO (10-20); Calcium,Total 9.1 mg/dL (8.5-10.1); Chloride 105 mmol/L (98-107); Creatinine, Serum 0.92 mg/dL (0.55-1.02); EST Glomerular Filtration Rate 67 mL/min (>60); Est Glom Filt Rate - Afr Amer 81 mL/min (>60); Globulin 4.8 g/dL (2.2-4.2); Glucose 80 mg/dL (74-106); Potassium 3.9 mmol/L (3.5-5.1); Protein, Total 8.5 g/dL (6.4-8.2); Sodium Level 138 mmol/L (136-145)
== END 2021-07-04 23:59 | disposition home or self-care (01) ==
LOC: LAB 11:22
PROVIDERS: PCP Internal Medicine; Visit Provider Internal Medicine Rheumatology
DX: M06.4 Inflammatory polyarthropathy (principal); M21.41 Flat foot [pes planus] (acquired), right foot; I10 Essential (primary) hypertension; R51.9 Headache, unspecified; J30.9 Allergic rhinitis, unspecified; Z79.899 Other long term (current) drug therapy
CPT/HCPCS: 36415; 80053; 85025

== ENCOUNTER → 2021-10-08 | Outpatient (CLI) | payer BC, SELFPAY ==
[2021-10-08 12:08] LABS: Absolute Lymphocyte Count 1.28 X10^3/uL (0.83-4.51); Absolute Neutrophil Count 2.8 X10^3/uL (2.0-7.7); Basophil# 0.02 X10^3/uL; Basophil% 0.4 % (0-1); Eosinophil# 0.11 X10^3/uL; Eosinophils% 2.5 % (0-5); Hematocrit 43.6 % (37-47); Hemoglobin 13.5 g/dL (12.0-15.0); Lymphocyte # 1.28 X10^3/ul (0.83-4.51); Lymphocyte % 28.6 % (19-41); Mean Corpuscular Hgb 27.6 pg (27.0-32.0); Mean Platelet Vol. 9.7 fl (6.2-12.0); Monocyte# 0.26 X10^3/uL; Monocyte% 5.8 % (0-10); NRBC Flagged by Analyzer 0 % (0-5); Neutrophil # 2.78 X10^3/uL (2.7-7.7); Neutrophil % 62.3 % (47-70); Platelet Count 337 K/mm3 (150-450); RBC Distribution Width SD 52.2 fl (35.1-43.9); White Blood Count 4.5 K/mm3 (4.4-11.0)
[2021-10-08 12:38] LABS: ALB/GLOB Ratio 0.7 RATIO (0.9-2.4); AST(SGOT) 35 U/L (15-37); Alanine Aminotransfer ALT/SGPT 41 U/L (13-56); Albumin, Serum 3.4 g/dL (3.2-5.0); Alkaline Phosphatase 84 U/L (45-117); Anion Gap 6 (5-15); BUN 10 mg/dL (7-18); BUN/Creat Ratio 9.9 RATIO (10-20); Calcium,Total 9.2 mg/dL (8.5-10.1); Chloride 107 mmol/L (98-107); Creatinine, Serum 1.01 mg/dL (0.55-1.02); EST Glomerular Filtration Rate 60 mL/min (>60); Est Glom Filt Rate - Afr Amer 73 mL/min (>60); Globulin 4.6 g/dL (2.2-4.2); Glucose 109 mg/dL (74-106); Potassium 3.9 mmol/L (3.5-5.1); Sodium Level 139 mmol/L (136-145)
== END | disposition home or self-care (01) ==
LOC: BIMLAB 09:09
PROVIDERS: PCP Internal Medicine; Visit Provider Internal Medicine Rheumatology
DX: M06.4 Inflammatory polyarthropathy (principal); M21.41 Flat foot [pes planus] (acquired), right foot; I10 Essential (primary) hypertension; R51.9 Headache, unspecified; J30.9 Allergic rhinitis, unspecified; Z79.899 Other long term (current) drug therapy
CPT/HCPCS: 36415; 80053; 85025

== ENCOUNTER → 2022-03-23 | Outpatient (CLI) | payer BC, SELFPAY ==
[2022-03-23 12:27] LABS: Absolute Neutrophil Count 3.7 X10^3/uL (2.0-7.7); Basophil# 0.03 X10^3/uL; Basophil% 0.5 % (0-1); Eosinophil# 0.18 X10^3/uL; Eosinophils% 2.9 % (0-5); Hematocrit 44.3 % (37-47); Hemoglobin 13.6 g/dL (12.0-15.0); Lymphocyte % 27.8 % (19-41); Mean Corp Hgb Conc 30.7 g/dL (32-36); Mean Corpuscular Volume 87.9 fL (81-99); Mean Platelet Vol. 9.3 fl (6.2-12.0); Monocyte# 0.47 X10^3/uL; Monocyte% 7.7 % (0-10); NRBC Flagged by Analyzer 0 % (0-5); Neutrophil # 3.71 X10^3/uL (2.7-7.7); Neutrophil % 60.8 % (47-70); Platelet Count 364 K/mm3 (150-450); RBC Distribution Width SD 51.7 fl (35.1-43.9); Red Blood Count 5.04 M/mm3 (4.2-5.4); White Blood Count 6.1 K/mm3 (4.4-11.0)
[2022-03-23 13:02] LABS: ALB/GLOB Ratio 0.8 RATIO (0.9-2.4); AST(SGOT) 18 U/L (15-37); Alanine Aminotransfer ALT/SGPT 21 U/L (13-56); Albumin, Serum 3.6 g/dL (3.2-5.0); Alkaline Phosphatase 93 U/L (45-117); Anion Gap 7 (5-15); BUN 10 mg/dL (7-18); BUN/Creat Ratio 10.9 RATIO (10-20); Calcium,Total 9.3 mg/dL (8.5-10.1); Chloride 105 mmol/L (98-107); Creatinine, Serum 0.92 mg/dL (0.55-1.02); EST Glomerular Filtration Rate 67 mL/min (>60); Est Glom Filt Rate - Afr Amer 82 mL/min (>60); Globulin 4.6 g/dL (2.2-4.2); Glucose 101 mg/dL (74-106); Protein, Total 8.2 g/dL (6.4-8.2); Sodium Level 137 mmol/L (136-145)
== END | disposition home or self-care (01) ==
LOC: BIMLAB 10:33
PROVIDERS: PCP Internal Medicine; Referring Provider Internal Medicine; Visit Provider Internal Medicine
DX: M06.9 Rheumatoid arthritis, unspecified (principal)
CPT/HCPCS: 36415; 80053; 85025

== ENCOUNTER → 2022-06-17 | Outpatient (CLI) | payer BC, SELFPAY ==
[2022-06-17 16:48] LABS: Absolute Lymphocyte Count 2.08 X10^3/uL (0.83-4.51); Absolute Neutrophil Count 3.1 X10^3/uL (2.0-7.7); Basophil# 0.03 X10^3/uL; Basophil% 0.5 % (0-1); Eosinophil# 0.13 X10^3/uL; Eosinophils% 2.3 % (0-5); Hematocrit 42.5 % (37-47); Lymphocyte # 2.08 X10^3/ul (0.83-4.51); Lymphocyte % 36.3 % (19-41); Mean Corp Hgb Conc 30.6 g/dL (32-36); Mean Corpuscular Hgb 27.7 pg (27.0-32.0); Mean Corpuscular Volume 90.4 fL (81-99); Mean Platelet Vol. 8.9 fl (6.2-12.0); Monocyte# 0.35 X10^3/uL; Monocyte% 6.1 % (0-10); NRBC Flagged by Analyzer 0 % (0-5); Neutrophil # 3.13 X10^3/uL (2.7-7.7); Neutrophil % 54.6 % (47-70); Platelet Count 330 K/mm3 (150-450); RBC Distribution Width CV 17.2 % (11.6-14.6); RBC Distribution Width SD 56.8 fl (35.1-43.9); White Blood Count 5.7 K/mm3 (4.4-11.0)
[2022-06-17 17:01] LABS: ALB/GLOB Ratio 0.8 RATIO (0.9-2.4); AST(SGOT) 37 U/L (15-37); Alanine Aminotransfer ALT/SGPT 33 U/L (13-56); Albumin, Serum 3.5 g/dL (3.2-5.0); Alkaline Phosphatase 86 U/L (45-117); Anion Gap 6 (5-15); BUN 12 mg/dL (7-18); BUN/Creat Ratio 12.4 RATIO (10-20); Calcium,Total 9.7 mg/dL (8.5-10.1); Chloride 105 mmol/L (98-107); Creatinine, Serum 0.97 mg/dL (0.55-1.02); EST Glomerular Filtration Rate 63 mL/min (>60); Est Glom Filt Rate - Afr Amer 76 mL/min (>60); Globulin 4.6 g/dL (2.2-4.2); Glucose 94 mg/dL (74-106); Potassium 4.2 mmol/L (3.5-5.1); Protein, Total 8.1 g/dL (6.4-8.2); Sodium Level 139 mmol/L (136-145)
== END | disposition home or self-care (01) ==
LOC: BIMLAB 15:34
PROVIDERS: PCP Internal Medicine; Referring Provider Internal Medicine; Visit Provider Internal Medicine
DX: M06.9 Rheumatoid arthritis, unspecified (principal)
CPT/HCPCS: 36415; 80053; 85025

== ENCOUNTER → 2023-03-31 | Outpatient (CLI) | payer BC, SELFPAY ==
[2023-03-31 17:10] LABS: Cholesterol 197 mg/dL (200); High Density Lipoprotein 65 mg/dL; Triglycerides 111 mg/dL; Very Low Density Lipoprotein 22 mg/dL (5-40)
== END | disposition home or self-care (01) ==
LOC: BIMLAB 14:53
PROVIDERS: PCP Internal Medicine; Referring Provider Internal Medicine; Visit Provider Internal Medicine
DX: I10 Essential (primary) hypertension (principal)
CPT/HCPCS: 36415; 80061

== ENCOUNTER → 2023-09-23 | Outpatient (CLI) | payer BC, SELFPAY ==
[2023-09-23 17:06] LABS: Absolute Lymphocyte Count 2.26 X10^3/uL (0.83-4.51); Absolute Neutrophil Count 6.3 X10^3/uL (2.0-7.7); Basophil# 0.02 X10^3/uL; Basophil% 0.2 % (0-1); Eosinophils% 3.3 % (0-5); Hematocrit 42.5 % (37-47); Hemoglobin 12.6 g/dL (12.0-15.0); Lymphocyte # 2.26 X10^3/ul (0.83-4.51); Mean Corp Hgb Conc 29.6 g/dL (32-36); Mean Platelet Vol. 9.8 fl (6.2-12.0); Monocyte# 0.17 X10^3/uL; Monocyte% 1.9 % (0-10); NRBC Flagged by Analyzer 0 % (0-5); Neutrophil # 6.26 X10^3/uL (2.7-7.7); Neutrophil % 69.3 % (47-70); Platelet Count 414 K/mm3 (150-450); RBC Distribution Width CV 16.6 % (11.6-14.6); RBC Distribution Width SD 55.5 fl (35.1-43.9); Red Blood Count 4.67 M/mm3 (4.2-5.4)
[2023-09-23 17:17] LABS: ALB/GLOB Ratio 0.6 RATIO (0.9-2.4); AST(SGOT) 21 U/L (15-37); Alanine Aminotransfer ALT/SGPT 25 U/L (13-56); Albumin, Serum 3.1 g/dL (3.2-5.0); Alkaline Phosphatase 94 U/L (45-117); Anion Gap 6 (5-15); BUN 14 mg/dL (7-18); BUN/Creat Ratio 14.6 RATIO (10-20); Calcium,Total 9.3 mg/dL (8.5-10.1); Chloride 102 mmol/L (98-107); Creatinine, Serum 0.96 mg/dL (0.55-1.02); EST Glomerular Filtration Rate 64 mL/min (>60); Est Glom Filt Rate - Afr Amer 77 mL/min (>60); Globulin 4.8 g/dL (2.2-4.2); Glucose 86 mg/dL (74-106); Potassium 3.7 mmol/L (3.5-5.1); Protein, Total 7.9 g/dL (6.4-8.2); Sodium Level 137 mmol/L (136-145)
== END | disposition home or self-care (01) ==
LOC: BIMLAB 15:46
PROVIDERS: PCP Internal Medicine; Referring Provider Internal Medicine; Visit Provider Internal Medicine
DX: I10 Essential (primary) hypertension (principal)
CPT/HCPCS: 36415; 80053; 85025

== ENCOUNTER → 2023-09-30 | Outpatient (CLI) | payer BC, SELFPAY ==
--- NOTE | 2023-09-30 07:43 | BI_ITS ---
MAMMOGRAPHY - BILATERAL SCREENING REASON FOR EXAM: Female, 57 years old. Routine annual screening examination. PERTINENT HISTORY: Non-contributory. Remote left excisional breast biopsy. TECHNIQUE: Digital bilateral breast glendy (3D mammographic acquisition) in the CC and MLO projections. 2-D mediolateral oblique (MLO) and craniocaudad (CC) views of both breasts were obtained. CAD: Full Field Digital Mammography with Computer Added Detection was performed. COMPARISON: Comparison is made with prior study April 28, 2021 and August 23, 2017. FINDINGS: Breast Composition: There are scattered areas of fibroglandular density. There are no dominant masses or suspicious calcifications. Stable small benign-appearing bilateral axillary lymph nodes. No other significant abnormalities are identified. There has been no significant change since the prior study. BI/SCRN MAMM (CAD)W/GLENDY BILAT IMPRESSION: Stable bilateral screening mammogram. Yearly follow-up mammogram recommended. (A) ASSESSMENT CATEGORY: BIRADS Category 2: Benign. A letter regarding these results will be sent to the patient by the facility within 30 days. Approximately 10% of breast cancers are not detected by mammography. A normal mammogram should not delay biopsy of a clinically suspicious abnormality. [id number] Electronically Signed: Jarrett Hernández MD at 8:27 EDT ,
== END | disposition home or self-care (01) ==
LOC: PSN 07:40
PROVIDERS: PCP Internal Medicine; Referring Provider Internal Medicine; Visit Provider Internal Medicine
DX: Z12.31 Encounter for screening mammogram for malignant neoplasm of breast (principal); R94.31 Abnormal electrocardiogram [ECG] [EKG]; I49.1 Atrial premature depolarization
CPT/HCPCS: 77063; 77067; 93225; 93226

== ENCOUNTER → 2024-04-27 | Outpatient (CLI) | payer BC, SELFPAY ==
[2024-04-27 17:11] LABS: ALB/GLOB Ratio 0.7 RATIO (0.9-2.4); AST(SGOT) 25 U/L (15-37); Alanine Aminotransfer ALT/SGPT 30 U/L (13-56); Albumin, Serum 3.4 g/dL (3.2-5.0); Alkaline Phosphatase 97 U/L (45-117); Anion Gap 4 (5-15); BUN 10 mg/dL (7-18); BUN/Creat Ratio 10.3 RATIO (10-20); Calcium,Total 9.6 mg/dL (8.5-10.1); Chloride 104 mmol/L (98-107); Cholesterol 179 mg/dL (200); Creatinine, Serum 0.97 mg/dL (0.55-1.02); EST Glomerular Filtration Rate 63 mL/min (>60); Est Glom Filt Rate - Afr Amer 76 mL/min (>60); Globulin 5.1 g/dL (2.2-4.2); Glucose 95 mg/dL (74-106); High Density Lipoprotein 67 mg/dL; Potassium 3.9 mmol/L (3.5-5.1); Protein, Total 8.5 g/dL (6.4-8.2); Sodium Level 138 mmol/L (136-145); Triglycerides 86 mg/dL; Very Low Density Lipoprotein 17 mg/dL (5-40)
== END | disposition home or self-care (01) ==
LOC: BIMLAB 15:13
PROVIDERS: PCP Internal Medicine; Referring Provider Internal Medicine; Visit Provider Internal Medicine
DX: I10 Essential (primary) hypertension (principal)
CPT/HCPCS: 36415; 80053; 80061

== ENCOUNTER → 2024-05-16 | Outpatient (CLI) | payer BC, SELFPAY ==
--- NOTE | 2024-05-16 15:29 | RAD_ITS ---
PROCEDURE: CHEST PA AND LATERAL TECHNIQUE: Three-view PA and lateral chest. COMPARISON: None. RAD/Chest PA and Lateral IMPRESSION: Mild thoracic spine degenerative changes are noted. The cardiomediastinal silhouette is within the normal range for age. Lungs are moderately hyperinflated with increased interstitial markings, consis tent with chronic lung disease. No acute pneumonic process is noted. No pleural effusion or pneumothorax is seen. h Reading Location: [id number]
== END | disposition home or self-care (01) ==
LOC: MTRAD 15:29
PROVIDERS: PCP Internal Medicine; Referring Provider Internal Medicine; Visit Provider Internal Medicine
DX: R05.3 Chronic cough (principal)
CPT/HCPCS: 71046

== ENCOUNTER 2024-05-19 14:42 | Inpatient (IN) | payer BC, SELFPAY ==
[2024-05-19] VITALS (14 sets, daily range): BP systolic 109–141; BP diastolic 60–115; PULSE 64–129; RESP 15–22; TEMP 36.1–36.8; O2SAT 85–95; BMI 20.7; BMI 46.9
--- NOTE | 2024-05-19 15:05 | NURSING ---
NO OLD EKGS
--- NOTE | 2024-05-19 15:42 | EKG12_ITS ---
Test Reason : SOB Blood Pressure : */* mmHG Vent. Rate : 97 BPM Atrial Rate : 97 BPM P-R Int : 138 ms QRS Dur : 82 ms QT Int : 350 ms P-R-T Axes : 72 71 79 degrees QTcB Int : 444 ms Normal sinus rhythm Normal ECG Confirmed by LIANA MONAHAN, FREDERICK ([id number]), movie editor HONG DIAZ ([id number]) on 05/22/2024 7:03:17 AM Referred By: Oli Marcelino Confirmed By: FREDERICK GAINES MD
[2024-05-19] MEDS: Ipratropium/Albuterol Sulfate 3 ML AMPUL.NEB INHALATION ×2 (16:07→18:26)
[2024-05-19] MEDS: Albuterol 2.5 MG/3 ML VIAL.NEB. 5 MG INHALATION (16:07)
[2024-05-19 16:13] LABS: Absolute Lymphocyte Count 0.93 X10^3/uL (0.83-4.51); Absolute Neutrophil Count 3.3 X10^3/uL (2.0-7.7); Basophil# 0.02 X10^3/uL; Basophil% 0.4 % (0-1); Eosinophil# 0.01 X10^3/uL; Eosinophils% 0.2 % (0-5); Hematocrit 41.2 % (37-47); Hemoglobin 12.9 g/dL (12.0-15.0); Lymphocyte # 0.93 X10^3/ul (0.83-4.51); Lymphocyte % 19.4 % (19-41); Mean Corp Hgb Conc 31.3 g/dL (32-36); Mean Corpuscular Hgb 27.6 pg (27.0-32.0); Mean Platelet Vol. 9.9 fl (6.2-12.0); Monocyte# 0.54 X10^3/uL; Monocyte% 11.3 % (0-10); NRBC Flagged by Analyzer 0 % (0-5); Neutrophil # 3.26 X10^3/uL (2.7-7.7); Neutrophil % 67.9 % (47-70); Platelet Count 316 K/mm3 (150-450); RBC Distribution Width CV 17.6 % (11.6-14.6); RBC Distribution Width SD 56.1 fl (35.1-43.9); Red Blood Count 4.68 M/mm3 (4.2-5.4); White Blood Count 4.8 K/mm3 (4.4-11.0)
--- NOTE | 2024-05-19 16:42 | RAD_ITS ---
PROCEDURE: CHEST PA AND LATERAL REASON FOR EXAM: Cough. TECHNIQUE: Frontal and lateral views of the chest. COMPARISON: Chest x-ray of 05/16/2024. RAD/Chest PA and Lateral IMPRESSION: Mild thoracic spine degenerative changes are seen. Bilateral acromioclavicular joint degenerative changes are also noted. No acute osseous process is seen. Lungs appear clear of acute disease. No pleural effusion or pneumothorax is evident. The cardiomediastinal silhouette is within the normal range for age. No eviden ce of cardiomegaly. No evidence of acute cardiopulmonary disease. Reading Location: [id number]
[2024-05-19 16:44] LABS: Anion Gap 9 (5-15); BUN 17 mg/dL (7-18); BUN/Creat Ratio 13.6 RATIO (10-20); Calcium,Total 8.7 mg/dL (8.5-10.1); Chloride 100 mmol/L (98-107); Creatinine, Serum 1.25 mg/dL (0.55-1.02); EST Glomerular Filtration Rate 47 mL/min (>60); Est Glom Filt Rate - Afr Amer 57 mL/min (>60); Estimated Creatinine Clearance 46.62 ml/min; Glucose 113 mg/dL (74-106); Potassium 3.2 mmol/L (3.5-5.1); Sodium Level 137 mmol/L (136-145)
[2024-05-19 17:11] LABS: D-Dimer Quantitative (DVT/PE) 0.68 FEU/ug/m (0.27-0.49)
[2024-05-19] MEDS: MethylPREDNISolone 125 MG/2 ML Vial IV (17:12)
--- NOTE | 2024-05-19 17:12 | CT_ITS ---
PROCEDURE: CTA CHEST W/WO CONTRAST REASON FOR EXAM: Elevated dimer TECHNIQUE: CTA imaging of the chest with intravenous contrast. 3D reconstructions. CONTRAST: Yes COMPARISON: None. FINDINGS: Hardware: None. Lymph nodes: No mediastinal hilar or axillary lymphadenopathy. Heart: Normal heart size. No pericardial effusion. RV/LV Diameter Ratio: N/A Thoracic Aorta: No thoracic aortic aneurysm or dissection. Pulmonary Vessels: No large central pulmonary emboli are identified. Contrast timing is suboptimal for evaluation of more distal branches. Most Proximal Level of Embolus (if embolus present): N/A Lungs and Airways: 7 mm peripheral pulmonary nodule in the right lower lobe image 93 series 2. Bibasilar and lingular atelectasis. Pleura: No pleural effusion. No pneumothorax. Upper Abdomen: Visualized portions of the upper abdominal viscera are unremarkable. Bones: Bone windows are unremarkable. CT/CTA Chest W/WO Contrast IMPRESSION: 1. Limited study with no gross evidence of acute pulmonary emboli. 2. Right lower lobe pulmonary nodule. One or more dose reduction techniques were used (e.g., Automated exposure contr ol, adjustment of the mA and/or kV according to patient size, use of iterative reconstruction technique). Reading Location: [facility]
--- NOTE | 2024-05-19 17:25 | EDS_ITS ---
HPI <TETO Melvin - Last Filed: 05/19/24 18:27> History of Present Illness Chief Complaint: Shortness of Breath Narrative Narrative: Patient is a 58-year-old female with history of obesity, COPD, chronic kidney disease, migraine headaches who presents to the emergency department for shortness of breath. Patient states that she has intermittent bronchitis, over the last several weeks, she has been coughing. Patient states for the last 3 to 4 weeks, she has been seen, placed on steroids and having no relief. Over the last 24 hours the shortness of breath has been worse. She noticed that her oxygen saturation was in 80s at home. She is here for evaluation. Denies any specific pain. Denies any fever or chills. PFSH <TETO Melvin - Last Filed: 05/19/24 18:27> [facility] Medical History (Updated 05/19/24 @ 23:[address] Vikash Blake, DO) Dyspnea Chronic cough Bronchitis Left upper quadrant pain PAC (premature atrial contraction) Knee bursitis Preventative health care Otitis Left ear pain Generalized anxiety disorder Morbid obesity History of smoking 30 or more pack years Health care maintenance Thyroid nodule Wears glasses Post-menopausal Sleep apnea Hypertension history of right elbow fracture Migraines History of pneumonia Frequent headaches Rheumatoid arthritis History of breast lump Seasonal allergies Hypertension Home Medications ?Medication ?Instructions ?Recorded ?Last Taken ?Type acetaminophen 325 mg capsule 325 mg PO ONCE PRN Pain 0 05/23/20 Unknown History loratadine 10 mg tablet (Claritin) 10 mg PO DAILY 08/07 Unknown History melatonin 5 mg capsule 5 mg PO QHS 05/23/20 Unknown History hydroxychloroquine 200 mg tablet 200 mg PO BID #60 tab s 06/03/22 Unknown Rx (Plaquenil) folic acid 1 mg tablet 1 mg PO BID #90 tabs 3 Unknown Rx methotrexate sodium 2.5 mg tablet 20 mg PO QWEEK 09/24 Unknown History albuterol sulfate 90 mcg/actuation 2 puff inhalation Q 6H PRN 09/23/23 Unknown Rx aerosol inhaler shortness of breath or wheez ing #8.5 grams rizatriptan 10 mg tablet 10 mg PO ONCE PRN migraine h eadache 12/23/23 Unknown History amlodipine 5 mg tablet 5 mg PO DAILY #90 TABLETS Unknown Rx sertraline 50 mg tablet 50 mg PO DAILY #90 TABLETS 1 Unknown Rx benzonatate 100 mg capsule 100 mg PO BID-TID PRN cough #90 04/27/24 Unknown Rx caps fluticasone furoate 100 1 inh inhalation Q24H #60 ea 05/15/24 Unknown Rx mcg-vilanterol 25 mcg/dose inhalation powder (Breo Ellipta) buspirone 7.5 mg tablet 7.5 mg PO BID 05/19/24 Unkno wn History prednisone 10 mg tablets in a dose See Rx Instructions PO PER PKG DIR 05/19/24 Unknown Rx pack #48 tabs Allergy/AdvReac Type Severity Reaction Status Date / Time hydrocodone bitartrate (From Allergy Rash Verified 05/19/24 15:32 Vicodin) erythromycin base AdvReac Vomiting Verified 05/19/24 15:32 Penicillins (PCN) AdvReac Upset Verified 05/19/24 15:32 Stomach Family History Mother Anxiety and depression Arthritis Father Hypertension Grandmother Osteoporosis Surgical History Hx of colonoscopy History of endometrial ablation History of carpal tunnel surgery History of breast biopsy S/P thyroid biopsy Social History household members: spouse housing: house current occupational status: employed 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[employer] [place] Smoking Status: Former smoker quit date: 04/19/14 Tobacco: How many years used: 25 how long ago did patient quit smokin04/19/2016 alcohol intake: never substance use type: does not use what type of physical activity do you participate in: none seatbelt use: always do you feel safe at home: Yes ROS <TETO Melvin - Last Filed: 05/19/24 18:27> ROS ED ROS Narrative Constitutional: Negative for fever, chills, weight loss, weakness Eyes: Negative for vision loss, vision change, double vision ENT: Negative for any sore throat, ear pain, congestion Cardiovascular: Negative for any chest pain, tightness, palpitations Respiratory: Positive for any cough, sputum production, dyspnea, dyspnea on exertion, orthopnea Gastrointestinal: Negative for any abdominal pain, nausea, vomiting, diarrhea, constipation, blood in stool, blood in vomit : Negative for any urinary frequency, dysuria, retention, blood in urine Muscle skeletal: Negative for any neck pain, back pain. Positive for myalgias Neurological: Negative for any headache, syncope, dizziness Skin: Negative for any rashes, itching, abrasions, lacerations Psychiatric: Negative for any depression, anxiety, stress, suicidal ideation, homicidal ideation Hematologic: Negative for any excessive bruising, easy bleeding EXAM <TETO Melvin - Last Filed: 05/19/24 18:27> Physical Exam Narrative Exam Narrative: Vital signs reviewed. Patient on 3 L is 93 to 94% HEET: Head normocephalic atraumatic, TMs clear bilaterally. Posterior pharynx is clear, dry mucous membranes. Nares clear bilaterally. Neck: Supple with no lymphadenopathy or tenderness. No signs of meningismus. Cardiac: Regular rate and rhythm no murmurs gallops or rubs, equal peripheral pulses bilaterally. Respiratory: Patient has no expiratory wheezes, significant diminished in the lower lobes secondary to body habitus.. No chest tenderness. Abdomen: Soft, nontender, nondistended. No abdominal bruit or pulsatile masses. No hepatosplenomegaly Extremities: No peripheral edema, no signs of gross trauma or deformity. Active full range of motion of all extremities. Neuro: Cranial nerves II through XII intact, no focal neurological deficits. Skin: Clean dry and intact with no rash, purpura, petechiae, vesicles or pustules. Backs/flank: No CVA tenderness, no midline spinal tenderness, no deformity. Psych: Normal mood and affect. No SI, HI or acute psychosis. Const Vital Signs: 05/19/24 14:44 05/19/24 14:45 05/19/24 14:45 Temperature 96.9 F L 96.9 F L Temperature Source Temporal Temporal Pulse Rate 112 H 112 H Respiratory Rate 22 H 22 H Respiratory Effort Respiratory Depth Respiratory Pattern Blood Pressure 132/91 H 132/91 H Blood Pressure Mean 104 104 Pulse Ox 85 91 91 Oxygen Delivery Method Room Air Nasal Cannula Nasal Cannula Oxygen Flow Rate (L/min) 2 2 05/19/24 15:30 05/19/24 16:08 05/19/24 16:20 Temperature Temperature Source Pulse Rate 64 129 H Respiratory Rate 20 H 19 H Respiratory Effort Short of Breath Respiratory Depth Shallow Respiratory Pattern Tachypnea Normal Blood Pressure 128/60 H Blood Pressure Mean 82 Pulse Ox 90 Oxygen Delivery Method Nasal Cannula Nasal Cannula Oxygen Flow Rate (L/min) 3 4 05/19/24 16:24 05/19/24 17:07 05/19/24 18:00 Temperature Temperature Source Pulse Rate 123 H 110 H Respiratory Rate 15 Respiratory Effort Respiratory Depth Respiratory Pattern Blood Pressure 130/115 H Blood Pressure Mean 120 Pulse Ox 95 91 Oxygen Delivery Method Nasal Cannula Nasal Cannula Oxygen Flow Rate (L/min) 3 4 <Dr. Vikash Blake DO - Last Filed: 05/19/24 23:48> Physical Exam Const Vital Signs: 05/19/24 14:44 05/19/24 14:45 05/19/24 14:45 Temperature 96.9 F L 96.9 F L Temperature Source Temporal Temporal Pulse Rate 112 H 112 H Respiratory Rate 22 H 22 H Respiratory Effort Respiratory Depth Respiratory Pattern Blood Pressure 132/91 H 132/91 H Blood Pressure Mean 104 104 Pulse Ox 85 91 91 Oxygen Delivery Method Room Air Nasal Cannula Nasal Cannula Oxygen Flow Rate (L/min) 2 2 05/19/24 15:30 05/19/24 16:08 05/19/24 16:20 Temperature Temperature Source Pulse Rate 64 129 H Respiratory Rate 20 H 19 H Respiratory Effort Short of Breath Respiratory Depth Shallow Respiratory Pattern Tachypnea Normal Blood Pressure 128/60 H Blood Pressure Mean 82 Pulse Ox 90 Oxygen Delivery Method Nasal Cannula Nasal Cannula Oxygen Flow Rate (L/min) 3 4 05/19/24 16:24 05/19/24 17:07 05/19/24 18:00 Temperature Temperature Source Pulse Rate 123 H 110 H Respiratory Rate 15 Respiratory Effort Respiratory Depth Respiratory Pattern Blood Pressure 130/115 H Blood Pressure Mean 120 Pulse Ox 95 91 Oxygen Delivery Method Nasal Cannula Nasal Cannula Oxygen Flow Rate (L/min) 3 4 MDM <TETO Melvin - Last Filed: 05/19/24 18:27> MDM Lab Data Labs: Laboratory Results - last 24 hr 05/19/24 15:05 WBC 4.8 RBC 4.68 Hgb 12.9 Hct 41.2 MCV 88.0 MCH 27.6 MCHC 31.3 L RDW Std Deviation 56.1 H RDW Coeff of Kevin 17.6 H Plt Count 316 MPV 9.9 Immature Gran % (Auto) 0.800 Neut % (Auto) 67.9 Lymph % (Auto) 19.4 [place] % (Auto) 11.3 H Eos % (Auto) 0.2 Baso % (Auto) 0.4 Absolute Neuts (auto) 3.3 Absolute Lymphs (auto) 0.93 Nucleated RBC % 0 D-Dimer Quant (PE/DVT) 0.68 H* Sodium 137 Potassium 3.2 L Chloride 100 Carbon Dioxide 28.0 Anion Gap 9 BUN 17 Creatinine 1.25 H Estim Creat Clear Calc 46.62 Est GFR (MDRD) Af Amer 57 L Est GFR (MDRD) Non-Af 47 L BUN/Creatinine Ratio 13.6 Glucose 113 H Calcium 8.7 Phosphorus 2.4 L Magnesium 2.4 Radiography Diagnostic Testing: Clinical Impression(s) from Imaging Studies Chest X-Ray 05/19/24 16:42 IMPRESSION: Mild thoracic spine degenerative changes are seen. Bilateral acromioclavicular joint degenerative changes are also noted. No acute osseous process is seen. Lungs appear clear of acute disease. No pleural effusion or pneumothorax is evident. The cardiomediastinal silhouette is within the normal range for age. No evidence of cardiomegaly. No evidence of acute cardiopulmonary disease. Reading Location: [id number] Chest CTA 05/19/24 17:12 IMPRESSION: 1. Limited study with no gross evidence of acute pulmonary emboli. 2. Right lower lobe pulmonary nodule. One or more dose reduction techniques were used (e.g., Automated exposure control, adjustment of the mA and/or kV according to patient size, use of iterative reconstruction technique). Reading Location: [facility] EKG Normal sinus rhythm: Attestation: I personally reviewed and interpreted this EKG as follows: Interpretation: Sinus Rhythm Comments: Normal sinus rhythm, rate of 97 bpm, MT 230 ms, QRS duration 82 ms, no acute ST elevation, no acute infarct noted. Treatment and Re-Evaluation :: Differential diagnosis includes however is not limited to: COPD exacerbation, community-acquired pneumonia, fluid overload, COVID-19, influenza, RSV Patient on 3 L is 94%. The remainder the vital signs are stable. Presenting to the emergency department with complaints of cough, congestion, shortness of breath that has been ongoing worse over the last 24 to 48 hours. Patient's EKG was unremarkable. Patient's laboratory values show a normal CBC, patient's chemistries show potassium 3.2, creatinine slightly elevated 1.25, GFR 47, D- dimer slightly elevated 0.68, patient did receive a CTA of the chest. Prior to that chest x-ray was completed and shows that the lungs appear clear of any acute disease. CTA was completed. I do believe that the patient may need to be admitted to the hospital secondary to hypoxia. All radiologic examinations were read, reviewed by the emergency department attending. From these reads, a plan of care will be put in place. Patient given breathing treatments, IV steroids. Patient reevaluation only showed minor improvement. Patient CBC was unremarkable. Patient's D-dimer was slightly elevated at 0.68, chemistry shows slight hypokalemia with potassium 3.2, creatinine is 1.25, slightly elevated th an 0.97 earlier in the month. Patient states she is not being drinking normally. Patient was positive for influenza A. Chest x-ray showed no acute process. Secondary the elevated D-dimer, a CTA was ordered. After the CTA was done, that is when I found out the patient was positive for influenza A. Secondary to the hypoxia, patient will need to be admitted the hospital. Patient be given another round of breathing treatments. Spoke with hospitalist who will accept the patient. <Dr. Vikash Blake, DO - Last Filed: 05/19/24 23:48> [facility] Narrative Medical decision making narrative: I have personally performed a face to face assessment of the patient and have reviewed the HOLLY Note. I performed a substantive portion of the visit including all aspects of the following. My rice findings include: History: Patient presents with shortness of breath that has been getting worse over the past month. Patient states it is intermittent. Patient states she has some tightness in her chest. Patient states her breathing is worse with any exertion. Patient states nothing seems to help with it. Patient states it has been getting worse over the past week. Patient admits to subjective fevers and chills. Patient admits to a cough but denies any sputum production. Patient admits to some nausea, vomiting, and diarrhea. Exam: Vital signs are stable except for mild tachycardia of 112 and a mild tachypnea of 22. Patient is afebrile. Oxygen saturation was 85% on room air and increased to 91% with nasal cannula. Oral mucosa is pink and moist. Neck is supple. Trachea is midline. There is no JVD. Heart was regular and tachycardic. Lungs show diffuse expiratory wheezing. There is good respiratory effort noted. Abdomen is soft. Bowel sounds are normal. There is no tenderness. Cranial nerves II through XII are intact. There are no focal motor or sensory deficits noted. Medical Decision Making: Differential diagnosis includes pneumonia, bronchitis, viral illness, pulmonary embolism, cardiac dysrhythmia, and cardiac ischemia. EKG will be obtained to assess for cardiac dysrhythmia and cardiac ischemia. Chest x-ray will be obtained to assess for pneumonia and pneumothorax. CBC will be obtained to assess for leukocytosis and anemia. Basic metabolic profile will be obtained to assess for electrolyte abnormality and renal function. D-dimer will be obtained to assess for pulmonary embolism. COVID-19, influenza, and RSV PCR will be obtained to assess for viral illness. Patient was given DuoNeb aerosol and albuterol aerosol. Patient was given Solu- Medrol. EKG was obtained. On my independent interpretation, it showed a normal sinus rhythm with a rate of 97. MT interval, QRS interval, and QTc intervals were all normal. [place] was normal. There are no acute ST or T wave changes. PA and lateral chest x-ray was obtained. There are 2 views. On my independent interpretation, lung scruggs are clear. There is normal cardiac silhouette. Bony thorax is normal. There is no acute process noted. Radiologist also interpreted the x-ray and agrees. CBC was reviewed and was within normal limits. Basic metabolic profile was reviewed. Creatinine was slightly elevated at 1.25 and potassium slightly low at 3.2. D-dimer was reviewed and was slightly elevated at 0.68. Because of this, CTA of the chest was obtained to assess for pulmonary embolism and aortic dissection. CTA of the chest was obtained. There is no evidence of pulmonary embolism or aortic dissection. There is a right lower lobe pulmonary nodule. COVID-19 PCR was reviewed and was negative. Influenza PCR was reviewed and was positive for influenza A and negative for influenza B. RSV PCR was reviewed and was negative. Due to the patient's hypoxia, patient will need to be admitted to the hospital. Case was discussed with the hospitalist. He will admit the patient to his service. Patient and family understood and were agreeable with the plan. All questions were answered. Lab Data Labs: Laboratory Results - last 24 hr 05/19/24 15:05 WBC 4.8 RBC 4.68 Hgb 12.9 Hct 41.2 MCV 88.0 MCH 27.6 MCHC 31.3 L RDW Std Deviation 56.1 H RDW Coeff of Kevin 17.6 H Plt Count 316 MPV 9.9 Immature Gran % (Auto) 0.800 Neut % (Auto) 67.9 Lymph % (Auto) 19.4 [place] % (Auto) 11.3 H Eos % (Auto) 0.2 Baso % (Auto) 0.4 Absolute Neuts (auto) 3.3 Absolute Lymphs (auto) 0.93 Nucleated RBC % 0 D-Dimer Quant (PE/DVT) 0.68 H* Sodium 137 Potassium 3.2 L Chloride 100 Carbon Dioxide 28.0 Anion Gap 9 BUN 17 Creatinine 1.25 H Estim Creat Clear Calc 46.62 Est GFR (MDRD) Af Amer 57 L Est GFR (MDRD) Non-Af 47 L BUN/Creatinine Ratio 13.6 Glucose 113 H Calcium 8.7 Phosphorus 2.4 L Magnesium 2.4 Radiography Diagnostic Testing: Clinical Impression(s) from Imaging Studies Chest X-Ray 05/19/24 16:42 IMPRESSION: Mild thoracic spine degenerative changes are seen. Bilateral acromioclavicular joint degenerative changes are also noted. No acute osseous process is seen. Lungs appear clear of acute disease. No pleural effusion or pneumothorax is evident. The cardiomediastinal silhouette is within the normal range for age. No evidence of cardiomegaly. No evidence of acute cardiopulmonary disease. Reading Location: [id number] Chest CTA 05/19/24 17:12 IMPRESSION: 1. Limited study with no gross evidence of acute pulmonary emboli. 2. Right lower lobe pulmonary nodule. One or more dose reduction techniques were used (e.g., Automated exposure control, adjustment of the mA and/or kV according to patient size, use of iterative reconstruction technique). Reading Location: [facility] Discharge Plan Dx/Rx/DC Orders Clinical Impression: Hypoxia, Influenza A, Hypertension Disposition Disposition: Acute Care Hospital [facility] Discharge Date/Time: 05/19/24 20:13
--- NOTE | 2024-05-19 18:08 | PCM.HP.STD ---
HPI - General General Date of Admission: 05/19/24 Date of Service: 05/19/24 Chief Complaint: URI symptoms with shortness of breath HPI Narrative HONG KHAN, is a 58 F who presented to [facility] ED on 05/19/2024 with URI symptoms and shortness of breath. Found to be positive for influenza A. Patient is a former smoker, quit about 15 years ago. No formal COPD diagnosis, does not wear oxygen at home. States she has had an ongoing cough and fatigue for the past few weeks. Has had minimal appetite and not eating or drinking much. In the ED she was tachycardic to the 110s to 120s and was requiring 3 L nasal cannula to maintain oxygen saturations greater than 90%. She was given 2 breathing treatments with improvement in her shortness of breath and wheezing but she did remain hypoxic. Hospitalist was then contacted for admission. I saw the patient at bedside in the ED, and son present. Patient was mildly fatigued appearing but otherwise sitting up comfortably in bed, conversing normally, in no acute distress. She is breathing comfortably on 3 L nasal cannula. She had mild upper airway wheezing noted bilaterally and mild to moderately diminished breath sounds, no crackles noted on exam. She was dry appearing on exam. She denied any fevers or chills. Had a dry cough, denied sputum production. No other acute concerns at this time. [facility] Medical History (Updated 05/19/24 @ 18:27 by Saad Price NP-Alejandro) Dyspnea Chronic cough Bronchitis Left upper quadrant pain PAC (premature atrial contraction) Knee bursitis Preventative health care Otitis Left ear pain Generalized anxiety disorder Morbid obesity History of smoking 30 or more pack years Health care maintenance Thyroid nodule Wears glasses Post-menopausal Sleep apnea Hypertension history of right elbow fracture Migraines History of pneumonia Frequent headaches Rheumatoid arthritis History of breast lump Seasonal allergies Hypertension Home Medications ?Medication ?Instructions ?Recorded ?Last Taken ?Type acetaminophen 325 mg capsule 325 mg PO ONCE PRN Pain 05/23/20 Unknown History loratadine 10 mg tablet (Claritin) 10 mg PO DAILY 05/23/20 Unknown History melatonin 5 mg capsule 5 mg PO QHS 05/23/20 Unknown History hydroxychloroquine 200 mg tablet 200 mg PO BID #60 tabs 06/03/22 Unknown Rx (Plaquenil) folic acid 1 mg tablet 1 mg PO BID #90 tabs 06/15/22 Unknown Rx methotrexate sodium 2.5 mg tablet 20 mg PO QWEEK 09/24/22 Unknown History albuterol sulfate 90 mcg/actuation 2 puff inhalation Q6H PRN 09/23/23 Unknown Rx aerosol inhaler shortness of breath or wheezing #8.5 grams rizatriptan 10 mg tablet 10 mg PO ONCE PRN migraine headache 12/23/23 Unknown History amlodipine 5 mg tablet 5 mg PO DAILY #90 TABLETS 01/31/24 Unknown Rx sertraline 50 mg tablet 50 mg PO DAILY #90 TABLETS 01/31/24 Unknown Rx benzonatate 100 mg capsule 100 mg PO BID-TID PRN cough #90 04/27/24 Unknown Rx caps fluticasone furoate 100 1 inh inhalation Q24H #60 ea 05/15/24 Unknown Rx mcg-vilanterol 25 mcg/dose inhalation powder (Breo Ellipta) buspirone 7.5 mg tablet 7.5 mg PO BID 05/19/24 Unknown History prednisone 10 mg tablets in a dose See Rx Instructions PO PER PKG DIR 05/19/24 Unknown Rx pack #48 tabs Allergy/AdvReac Type Severity Reaction Status Date / Time hydrocodone bitartrate (From Allergy Rash Verified 05/19/24 15:32 Vicodin) erythromycin base AdvReac Vomiting Verified 05/19/24 15:32 Penicillins (PCN) AdvReac Upset Verified 05/19/24 15:32 Stomach Family History Mother Anxiety and depression Arthritis Father Hypertension Grandmother Osteoporosis Surgical History Hx of colonoscopy History of endometrial ablation History of carpal tunnel surgery History of breast biopsy S/P thyroid biopsy Social History household members: spouse housing: house current occupational status: employed 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[employer] [place] Smoking Status: Former smoker quit date: 04/19/14 Tobacco: How many years used: 25 how long ago did patient quit smokin04/19/2016 alcohol intake: never substance use type: does not use what type of physical activity do you participate in: none seatbelt use: always do you feel safe at home: Yes ROS Constitutional Constitutional: Reports fatigue and malaise; Denies chills, fever(s) or weakness Eyes Eyes: Denies change in vision ENT HEENT: Reports nasal congestion and sore throat; Denies nasal discharge Cardiovascular Cardiovascular: Denies chest pain, edema or lightheadedness Respiratory/Chest Respiratory/Chest: Reports cough, shortness of breath at rest, shortness of breath with exertion and wheezing; Denies productive cough Gastrointestinal Gastrointestinal: Denies abdominal pain Genitourinary Genitourinary: Denies dysuria Musculoskeletal Musculoskeletal: Reports myalgias; Denies arthralgias Neurologic Neurologic: Denies dizziness or headache(s) Vital Signs Vital Signs Vital Signs: 05/19/24 14:44 05/19/24 14:45 05/19/24 14:45 Temperature 96.9 F L 96.9 F L Temperature Source Temporal Temporal Pulse Rate 112 H 112 H Respiratory Rate 22 H 22 H Respiratory Effort Respiratory Depth Respiratory Pattern Blood Pressure 132/91 H 132/91 H Blood Pressure Mean 104 104 Pulse Ox 85 91 91 Oxygen Delivery Method Room Air Nasal Cannula Nasal Cannula Oxygen Flow Rate (L/min) 2 2 05/19/24 15:30 05/19/24 16:08 05/19/24 16:20 Temperature Temperature Source Pulse Rate 64 129 H Respiratory Rate 20 H 19 H Respiratory Effort Short of Breath Respiratory Depth Shallow Respiratory Pattern Tachypnea Normal Blood Pressure 128/60 H Blood Pressure Mean 82 Pulse Ox 90 Oxygen Delivery Method Nasal Cannula Nasal Cannula Oxygen Flow Rate (L/min) 3 4 05/19/24 16:24 05/19/24 17:07 Temperature Temperature Source Pulse Rate 123 H Respiratory Rate 15 Respiratory Effort Respiratory Depth Respiratory Pattern Blood Pressure 130/115 H Blood Pressure Mean 120 Pulse Ox 95 91 Oxygen Delivery Method Nasal Cannula Nasal Cannula Oxygen Flow Rate (L/min) 3 4 Weight Weight: 60.192 kg Body Mass Index (BMI) 20.7 Physical Exam Const alert, oriented x3, no apparent distress and average body habitus Constitutional Narrative: Upper middle-aged female, mildly fatigued appearing, otherwise sitting up comfortably in bed, conversing normally, in no acute distress. General Appearance: cooperative and comfortable HEENT normocephalic, head/scalp atraumatic, hearing grossly normal bilaterally and nasal mucous membranes and turbinates normal HEENT Narrative: Dry mucous membranes. Eyes PERRL, EOMs intact bilaterally and conjunctivae normal Neck full ROM Chest inspection of chest normal Resp normal respiratory effort and no use of accessory muscles Resp Narrative: Breathing comfortably on 3 L nasal cannula at rest. Mild wheezing noted in upper airways bilaterally with mild to moderately diminished breath sounds. No crackles noted. Cardio no murmurs and peripheral pulses 2+ throughout Cardio Narrative: Tachycardic, regular rhythm. GI normal to inspection, nondistended, normoactive bowel sounds, soft to palpation, non-tender and non-distended Back/Spine normal ROM Extremity normal to inspection and no pedal edema Skin no rashes or lesions noted Neuro moves all extremities and no focal motor deficits Speech: speech normal Psych mental status grossly normal Results Lab / Micro Data 05/19/24 15:05 05/19/24 15:05 Labs: Laboratory Results - last 24 hr 05/19/24 15:05: WBC 4.8, RBC 4.68, Hgb 12.9, Hct 41.2, MCV 88.0, MCH 27.6, MCHC 31.3 L, RDW Std Deviation 56.1 H, RDW Coeff of Kevin 17.6 H, Plt Count 316, MPV 9.9, Immature Gran % (Auto) 0.800, Neut % (Auto) 67.9, Lymph % (Auto) 19.4, [place] % (Auto) 11.3 H, Eos % (Auto) 0.2, Baso % (Auto) 0.4, Absolute Neuts (auto) 3.3, Absolute Lymphs (auto) 0.93, Nucleated RBC % 0, D-Dimer Quant (PE/DVT) 0.68 H*, Sodium 137, Potassium 3.2 L, Chloride 100, Carbon Dioxide 28.0, Anion Gap 9, BUN 17, Creatinine 1.25 H, Estim Creat Clear Calc 46.62, Est GFR (MDRD) Af Amer 57 L, Est GFR (MDRD) Non-Af 47 L, BUN/Creatinine Ratio 13.6, Glucose 113 H, Calcium 8.7 Micro: Microbiology 05/19/24 16:25 Mucosa - Nose SARS-CoV-2, Influenza & RSV (PCR) - Final Influenzae A Imaging Radiology Impression Chest X-Ray 05/19/24 16:42 IMPRESSION: Mild thoracic spine degenerative changes are seen. Bilateral acromioclavicular joint degenerative changes are also noted. No acute osseous process is seen. Lungs appear clear of acute disease. No pleural effusion or pneumothorax is evident. The cardiomediastinal silhouette is within the normal range for age. No evidence of cardiomegaly. No evidence of acute cardiopulmonary disease. Reading Location: [address] Assessment & Plan Assessment/Plan (1) Influenza A: (2) Hypoxia: PLAN: Plan Patient is a 58-year-old female who presented [facility] ED on 05/19/2024 with URI symptoms and worsening shortness of breath. 1. Influenza A infection with hypoxia ? Admit under patient status to PCU. Flu A positive in the ED with moderate wheezing and hypoxia. No formal diagnosis of COPD but appears similar to a COPD exacerbation. Will treat with IV steroids and scheduled DuoNebs for now. Low concern for secondary bacterial infection, will hold on antibiotics. Wean supplemental oxygen as able. 2. Mild CIARAN with dehydration ? Creatinine 1.26 on admit, baseline around 0.9. Presume prerenal from dehydration. Given 1 L of IV fluids on admit, follow-up a.m. BMP and monitor urine output. 3. Mild hypokalemia ? Potassium 3.2 on admit. Mag and Phos ordered. Replete as needed. Chronic medical conditions: ? Hypertension: Continue home amlodipine. ? Rheumatoid arthritis: Stable. Continue home hydroxychloroquine. ? Anxiety/depression: Continue home sertraline and BuSpar. ? Seasonal allergies: Continue home loratadine. ? Class III obesity: BMI 46 on admit. Complicates hospital course, care and prognosis. DVT prophylaxis: Lovenox CODE STATUS: Full code, verified Expected disposition: Home, 2 to 3 days Total clinical time spent by myself addressing the patient's medical issues, reviewing all the data, and collaborating with patient's care team: 55 minutes. Charges/Coding Visit Charges Inpatient E&M: 49916 Init Hosp L2
[2024-05-19] MEDS: Albuterol 2.5 MG/3 ML VIAL.NEB. INHALATION (18:26)
[2024-05-19] MEDS: Potassium Chloride Oral Tablet 20 MEQ 40 MEQ PO (19:53)
[2024-05-19] MEDS: 0.9% Normal Saline (1000mL) 1,000 ML 500 ML IV (20:48)
[2024-05-19 23:17] LABS: Magnesium 2.4 mg/dL (1.6-2.6); Phosphorus 2.4 mg/dL (2.5-4.9)
[2024-05-19] MEDS: busPIRone 15 MG TABLET 7.5 MG PO (23:46)
[2024-05-19] MEDS: MELATONIN 10 MG TABLET 5 MG PO (23:46)
[2024-05-19] MEDS: guaiFENesin/D-Methorphan TAB.SR.12H 1 TABLET PO (23:47)
[2024-05-20] VITALS (8 sets, daily range): BP systolic 114–135; BP diastolic 63–93; PULSE 77–94; RESP 15–21; TEMP 36.4–36.6; O2SAT 90–97
[2024-05-20 05:58] LABS: Hematocrit 38.4 % (37-47); Hemoglobin 12.1 g/dL (12.0-15.0); Mean Corp Hgb Conc 31.5 g/dL (32-36); Mean Corpuscular Hgb 27.8 pg (27.0-32.0); Mean Corpuscular Volume 88.3 fL (81-99); Platelet Count 254 K/mm3 (150-450); RBC Distribution Width CV 17.6 % (11.6-14.6); RBC Distribution Width SD 56.5 fl (35.1-43.9); Red Blood Count 4.35 M/mm3 (4.2-5.4); White Blood Count 3.3 K/mm3 (4.4-11.0)
[2024-05-20 06:14] LABS: Anion Gap 7 (5-15); BUN 17 mg/dL (7-18); BUN/Creat Ratio 15.7 RATIO (10-20); Calcium,Total 8.5 mg/dL (8.5-10.1); Chloride 103 mmol/L (98-107); Creatinine, Serum 1.08 mg/dL (0.55-1.02); EST Glomerular Filtration Rate 55 mL/min (>60); Est Glom Filt Rate - Afr Amer 67 mL/min (>60); Estimated Creatinine Clearance 79.18 ml/min; Glucose 153 mg/dL (74-106); Potassium 3.9 mmol/L (3.5-5.1); Sodium Level 136 mmol/L (136-145)
[2024-05-20] MEDS: 0.9% Saline Lock 10 ML Syringe IV ×3 (08:01→21:51)
[2024-05-20] MEDS: Ipratropium/Albuterol Sulfate 3 ML AMPUL.NEB INHALATION ×4 (08:12→19:45)
--- NOTE | 2024-05-20 09:35 | CASEMGMT ---
JUVENCIO QUINN Assessment: Face to Face with pt for initial transition planning/care coordination assessment. JUVENCIO QUINN introduced self and role at [facility], pt voices understanding and consents to assessment. Pt is A&O x4 and answers all questions appropriately at this time. Pt lying in bed in no distress. Pt at bedside, pt agreeable to discussing DC plan with present. Care providers, pharmacy, and demographics verified/updated. Strata: 2 Admitting Dx: FLU A with Hypoxia and CIARAN PCP: Marci Specialists: Kiara PHILLIPS Preferred Pharmacy: [facility] Insurance: [employer] Prescription Benefit: yes LNOK: Matt Living Arrangements: Pt lives with in a ranch home with 2 steps to enter ADLs: I at baseline Transportation: Pt drives self and denies concerns with transportation. DME: Pulse ox HHC/SNF: Denies Hx of Pt states no concerns with going home at time of dc. JUVENCIO QUINN discussed potential O2 Needs at time of DC. Provided list of verbal providers, Pt chose [facility] if O2 needed when DCd home. Pt states no further concerns/needs. CM to follow. Advised pt to ask CM if any further question/concerns/needs arise, voices understanding. Pt Goal: Home Plan: Home, follow for O2 needs. Sumaya HENNING CM
[2024-05-20] MEDS: Enoxaparin 40 MG/0.4 ML Syringe SC (10:46)
[2024-05-20] MEDS: Sertraline 50 MG Tablet PO (10:47)
[2024-05-20] MEDS: guaiFENesin/D-Methorphan TAB.SR.12H 1 TABLET PO ×2 (10:47→21:50)
[2024-05-20] MEDS: Hydroxychloroquine 200 MG Tablet PO ×2 (10:47→19:09)
[2024-05-20] MEDS: amLODIPine 5 MG Tablet PO (10:47)
[2024-05-20] MEDS: Folic Acid 1 MG Tablet PO ×2 (10:47→19:09)
[2024-05-20] MEDS: Loratadine 10 MG Tablet PO (10:47)
--- NOTE | 2024-05-20 12:49 | PN.HOSP_ITS ---
Reason for Visit Reason for Visit: Diagnoses Influenza due to other identified influenza virus with other respiratory manifestations (05/19/24) Hypoxemia (05/19/24) Subjective Subjective Patient was seen and examined today, she is currently on 3 L of oxygen at rest and appears comfortable. Objective Data Objective Data Vital Signs: Vital Signs Temp Pulse Resp BP Pulse Ox O2 Del Method O2 Flow Rate 97.7 F L 79 17 120/76 93 Nasal Cannula 3 05/20/24 10:52 05/20/24 11:10 05/20/24 11:10 05/20/24 10:52 05/20/24 10:52 05/20/24 10:52 05/20/24 10:52 Oxygen Flow Rate (L/min) 3 Oxygen Delivery Method Nasal Cannula Weight: 131.9 kg Body Mass Index (BMI) 46.9 Intake & Output: Intake and Output for Last 24 Hours 05/18/24 05/19/24 05/20/24 23:59 23:59 23:59 Intake Total 1000 / 1200 400 / 400 Balance 1000 / 1200 400 / 400 Lab / Micro Data 05/20/24 03:52 05/20/24 03:52 Labs: Laboratory Results - last 24 hr 05/19/24 15:05: WBC 4.8, RBC 4.68, Hgb 12.9, Hct 41.2, MCV 88.0, MCH 27.6, MCHC 31.3 L, RDW Std Deviation 56.1 H, RDW Coeff of Kevin 17.6 H, Plt Count 316, MPV 9.9, Immature Gran % (Auto) 0.800, Neut % (Auto) 67.9, Lymph % (Auto) 19.4, [place] % (Auto) 11.3 H, Eos % (Auto) 0.2, Baso % (Auto) 0.4, Absolute Neuts (auto) 3.3, Absolute Lymphs (auto) 0.93, Nucleated RBC % 0, D-Dimer Quant (PE/DVT) 0.68 H*, Sodium 137, Potassium 3.2 L, Chloride 100, Carbon Dioxide 28.0, Anion Gap 9, BUN 17, Creatinine 1.25 H, Estim Creat Clear Calc 46.62, Est GFR (MDRD) Af Amer 57 L , Est GFR (MDRD) Non-Af 47 L, BUN/Creatinine Ratio 13.6, Glucose 113 H, Calcium 8.7, Phosphorus 2.4 L, Magnesium 2.4 05/20/24 03:52: WBC 3.3 L, RBC 4.35, Hgb 12.1, Hct 38.4, MCV 88.3, MCH 27.8, M CHC 31.5 L, RDW Std Deviation 56.5 H, RDW Coeff of Kevin 17.6 H, Plt Count 254, MPV 10.0, Sodium 136, Potassium 3.9, Chloride 103, Carbon Dioxide 27.0, Anion Gap 7, BUN 17, Creatinine 1.08 H, Estim Creat Clear Calc 79.18, Est GFR (MDRD) Af Amer 67, Est GFR (MDRD) Non-Af 55 L, BUN/Creatinine Ratio 15.7, Glucose 153 H , Calcium 8.5 Micro: Microbiology 05/19/24 16:25 Mucosa - Nose SARS-CoV-2, Influenza & RSV (PCR) - Final Influenzae A Radiography Diagnostic Testing: Radiology Impression Chest X-Ray 05/19/24 16:42 IMPRESSION: Mild thoracic spine degenerative changes are seen. Bilateral acromioclavicular joint degenerative changes are also noted. No acute osseous process is seen. Lungs appear clear of acute disease. No pleural effusion or pneumothorax is evident. The cardiomediastinal silhouette is within the normal range for age. No evidence of cardiomegaly. No evidence of acute cardiopulmonary disease. Reading Location: [address] Chest CTA 05/19/24 17:12 IMPRESSION: 1. Limited study with no gross evidence of acute pulmonary emboli. 2. Right lower lobe pulmonary nodule. One or more dose reduction techniques were used (e.g., Automated exposure control, adjustment of the mA and/or kV according to patient size, use of iterative reconstruction technique). Reading Location: [facility] Physical Exam Const alert, oriented x3 and no apparent distress Constitutional Narrative: Patient has class III obesity General Appearance: cooperative, well kempt and well developed Orientation / Consciousness: awake, oriented to person, oriented to place and oriented to time HEENT normocephalic, head/scalp atraumatic and moist oral mucous membranes Eyes PERRL, EOMs intact bilaterally and conjunctivae normal Neck supple, no JVD, thyroid normal and no carotid bruits General: trachea midline Resp normal respiratory effort, no retractions, no use of accessory muscles and clear to auscultation bilaterally Auscultation: Negative for rales, rhonchi or wheezes Cardio regular rate, regular rhythm, S1 normal heart sound, S2 normal heart sound, no murmurs, no rub and no gallops GI normal to inspection, nondistended, normoactive bowel sounds, soft to palpation, non-tender and non-distended Extremity no clubbing, cyanosis or edema Skin no rashes or lesions noted General Skin Exam: no breakdown Neuro oriented x3, CN's II-XII intact bilaterally, no focal motor deficits and no sensory deficits noted Sensorium / Orientation: awake and alert Speech: speech normal Psych affect normal Assessment & Plan Assessment/Plan (1) Influenza A: PLAN: Plan 1. Influenza A infection with hypoxia-patient's oxygen requirement is improved since admission, continue to monitor pulse ox, IV corticosteroids and DuoNebs are being given, I will add Tamiflu today-not sure when the patient really came down with influenza A #2 dehydration-creatinine is better today on labs #3 essential hypertension-patient will remain on her current medications #4 class III obesity-complicates care, management, recovery, and prognosis #5 chronic depression-patient is on Zoloft Total clinical time spent by myself addressing the patient's medical issues, reviewing all of her data, and collaborating with patient's care team: 35-minute Charges/Coding Visit Charges Inpatient E&M: 19431 Subs Hosp L2
[2024-05-20] MEDS: Oseltamivir Phosphate 75 MG Capsule PO ×2 (14:27→21:49)
[2024-05-20] MEDS: Benzonatate 100 MG Capsule PO (14:27)
[2024-05-20] MEDS: MELATONIN 10 MG TABLET 5 MG PO (21:50)
[2024-05-21] VITALS (8 sets, daily range): BP systolic 115–152; BP diastolic 73–89; PULSE 84–109; RESP 18–23; TEMP 36.4–36.6; O2SAT 89–95
[2024-05-21] MEDS: 0.9% Saline Lock 10 ML Syringe IV ×3 (06:50→21:06)
[2024-05-21] MEDS: Ipratropium/Albuterol Sulfate 3 ML AMPUL.NEB INHALATION ×4 (07:26→19:37)
[2024-05-21] MEDS: Enoxaparin 40 MG/0.4 ML Syringe SC (09:11)
[2024-05-21] MEDS: Benzonatate 100 MG Capsule PO ×2 (09:11→21:06)
[2024-05-21] MEDS: Loratadine 10 MG Tablet PO (09:11)
[2024-05-21] MEDS: Sertraline 50 MG Tablet PO (09:12)
[2024-05-21] MEDS: Oseltamivir Phosphate 75 MG Capsule PO ×2 (09:12→21:07)
[2024-05-21] MEDS: guaiFENesin/D-Methorphan TAB.SR.12H 1 TABLET PO ×2 (09:12→21:07)
[2024-05-21] MEDS: Folic Acid 1 MG Tablet PO ×2 (09:12→17:51)
[2024-05-21] MEDS: amLODIPine 5 MG Tablet PO (09:12)
[2024-05-21] MEDS: Hydroxychloroquine 200 MG Tablet PO ×2 (09:12→17:51)
--- NOTE | 2024-05-21 13:37 | PCM.PN.HOSP ---
Reason for Visit Reason for Visit: Diagnoses Influenza due to other identified influenza virus with other respiratory manifestations (05/19/24) Hypoxemia (05/19/24) Subjective Subjective Patient was seen and examined today, she is requiring 2 L of oxygen via nasal cannula at this time. Patient does not have home O2. Objective Data Objective Data Vital Signs: Vital Signs Temp Pulse Resp BP Pulse Ox O2 Del Method O2 Flow Rate 98 F 92 23 H 115/73 93 Nasal Cannula 2 05/21/24 09:10 05/21/24 11:55 05/21/24 11:55 05/21/24 09:10 05/21/24 09:10 05/21/24 09:19 05/21/24 09:19 Oxygen Flow Rate (L/min) 2 Oxygen Delivery Method Nasal Cannula Weight: 131.9 kg Body Mass Index (BMI) 46.9 Intake & Output: Intake and Output for Last 24 Hours 05/19/24 05/20/24 05/21/24 23:59 23:59 23:59 Intake Total 1000 / 1200 1300 / 1540 480 / 480 Balance 1000 / 1200 1300 / 1540 480 / 480 Medical Nutrition Assessment Dietitian: Malnutrition Criteria Met Start: 05/20/24 13:40 Freq: Status: Active Protocol: Document 05/20/24 13:40 VICKI (Rec: 05/20/24 13:40 [email or web address] [id number]) Nutrition Malnutrition Evidence of Yes Malnutrition Exists Malnutrition (severe Acute Illness/Injury ): Evidenced By Suboptimal Energy Intake (Severe),Weight Loss (Severe) Clinical Problem Acute Disease or Injury Related Malnutrition Etiology related to acute illness and inadequate energy intake Signs/Symptoms as evidenced by po intake meeting <75% of est nutritional needs and ~3% unintended wt loss x < 1 wk Status Active Problem Recommendation Dietitian Continue liberal regular diet per pt request Recommendations/ Changes Lab / Micro Data 05/20/24 03:52 05/20/24 03:52 Micro: Microbiology 05/19/24 16:25 Mucosa - Nose SARS-CoV-2, Influenza & RSV (PCR) - Final Influenzae A Physical Exam Narrative alert, oriented x3 and no apparent distress Constitutional Narrative: Patient has class III obesity General Appearance: cooperative, well kempt and well developed Orientation / Consciousness: awake, oriented to person, oriented to place and oriented to time HEENT normocephalic, head/scalp atraumatic and moist oral mucous membranes Eyes PERRL, EOMs intact bilaterally and conjunctivae normal Neck supple, no JVD, thyroid normal and no carotid bruits General: trachea midline Resp normal respiratory effort, no retractions, no use of accessory muscles and clear to auscultation bilaterally Auscultation: Negative for rales, rhonchi or wheezes Cardio regular rate, regular rhythm, S1 normal heart sound, S2 normal heart sound, no murmurs, no rub and no gallops GI normal to inspection, nondistended, normoactive bowel sounds, soft to palpation, non-tender and non-distended Extremity no clubbing, cyanosis or edema Skin no rashes or lesions noted General Skin Exam: no breakdown Neuro oriented x3, CN's II-XII intact bilaterally, no focal motor deficits and no sensory deficits noted Sensorium / Orientation: awake and alert Speech: speech normal Psych affect normal Assessment & Plan Assessment/Plan (1) Influenza A: PLAN: Plan 1. Influenza A infection with hypoxia-patient's oxygen requirement is improved since admission, continue to monitor pulse ox, IV corticosteroids and DuoNebs are being given, patient remains on Tamiflu #2 dehydration-resolved at this time #3 essential hypertension-patient will remain on her current medications #4 class III obesity-complicates care, management, recovery, and prognosis #5 chronic depression-patient is on Zoloft #6 rheumatoid arthritis-patient remains on Plaquenil at this time Total clinical time spent by myself addressing the patient's medical issues, reviewing all of her data, and collaborating with patient's care team: 35-minute Charges/Coding Visit Charges Inpatient E&M: 49974 Subs Hosp L2
[2024-05-21] MEDS: DiphenhydrAMINE 25 MG Capsule PO (21:06)
[2024-05-21] MEDS: MELATONIN 10 MG TABLET 5 MG PO (21:07)
[2024-05-21] MEDS: Nystatin Powder 15gm Bottle 1 APPLIC TOPICAL (21:08)
[2024-05-22] VITALS (9 sets, daily range): BP systolic 102–154; BP diastolic 69–95; PULSE 73–91; RESP 18–20; TEMP 36.5–36.6; O2SAT 83–95
[2024-05-22] MEDS: 0.9% Saline Lock 10 ML Syringe IV ×3 (05:49→21:02)
[2024-05-22] MEDS: Ipratropium/Albuterol Sulfate 3 ML AMPUL.NEB INHALATION ×4 (07:39→20:24)
[2024-05-22 09:26] LABS: Absolute Lymphocyte Count 0.87 X10^3/uL (0.83-4.51); Absolute Neutrophil Count 6.5 X10^3/uL (2.0-7.7); Basophil# 0.02 X10^3/uL; Basophil% 0.3 % (0-1); Hematocrit 42.1 % (37-47); Hemoglobin 12.5 g/dL (12.0-15.0); Lymphocyte # 0.87 X10^3/ul (0.83-4.51); Mean Corp Hgb Conc 29.7 g/dL (32-36); Mean Corpuscular Hgb 26.5 pg (27.0-32.0); Mean Corpuscular Volume 89.4 fL (81-99); Mean Platelet Vol. 9.7 fl (6.2-12.0); Monocyte# 0.42 X10^3/uL; Monocyte% 5.3 % (0-10); NRBC Flagged by Analyzer 0 % (0-5); Neutrophil # 6.49 X10^3/uL (2.7-7.7); Neutrophil % 82.3 % (47-70); POSITIVE MORPHOLOGY YES; Platelet Count 306 K/mm3 (150-450); RBC Distribution Width CV 17.2 % (11.6-14.6); RBC Distribution Width SD 56.6 fl (35.1-43.9); Red Blood Count 4.71 M/mm3 (4.2-5.4); White Blood Count 7.9 K/mm3 (4.4-11.0)
[2024-05-22 09:27] LABS: Differential Indicated SCAN CRITERIA MET
[2024-05-22 10:47] LABS: Anion Gap 8 (5-15); BUN 19 mg/dL (7-18); BUN/Creat Ratio 19.7 RATIO (10-20); Calcium,Total 9.1 mg/dL (8.5-10.1); Chloride 105 mmol/L (98-107); Creatinine, Serum 0.97 mg/dL (0.55-1.02); EST Glomerular Filtration Rate 63 mL/min (>60); Est Glom Filt Rate - Afr Amer 76 mL/min (>60); Estimated Creatinine Clearance 88.16 ml/min; Glucose 132 mg/dL (74-106); Potassium 3.9 mmol/L (3.5-5.1); Sodium Level 139 mmol/L (136-145)
[2024-05-22] MEDS: Oseltamivir Phosphate 75 MG Capsule PO ×2 (10:47→21:02)
[2024-05-22] MEDS: Nystatin Powder 15gm Bottle 1 APPLIC TOPICAL ×2 (10:52→21:01)
[2024-05-22 10:58] LABS: Atypical Lymphocyte 1+ %
[2024-05-22] MEDS: Folic Acid 1 MG Tablet PO ×2 (11:01→17:34)
[2024-05-22] MEDS: Sertraline 50 MG Tablet PO (11:01)
[2024-05-22] MEDS: Enoxaparin 40 MG/0.4 ML Syringe SC (11:01)
[2024-05-22] MEDS: guaiFENesin/D-Methorphan TAB.SR.12H 1 TABLET PO ×2 (11:02→21:02)
[2024-05-22] MEDS: Hydroxychloroquine 200 MG Tablet PO ×2 (11:02→17:34)
[2024-05-22] MEDS: Loratadine 10 MG Tablet PO (11:02)
[2024-05-22] MEDS: Benzonatate 100 MG Capsule PO ×2 (11:02→17:38)
[2024-05-22] MEDS: amLODIPine 5 MG Tablet PO (11:02)
--- NOTE | 2024-05-22 12:16 | PN_ITS ---
Subjective Subjective Patient seen and examined. Her daughter was by her bedside. She still complained of shortness of breath which she says is improving. She is still coughing. She denies any chest pain or palpitations, dizziness, nausea or vomiting. Review of systems otherwise negative. She remains on 2 L of oxygen. Objective Data Objective Data Vital Signs: Vital Signs Temp Pulse Resp BP Pulse Ox O2 Del Method O2 Flow Rate 97.7 F L 87 20 H 102/69 94 Nasal Cannula 2 05/22/24 10:45 05/22/24 10:56 05/22/24 10:56 05/22/24 10:45 05/22/24 10:45 05/22/24 10:45 05/22/24 10:45 Oxygen Flow Rate (L/min) 2 Oxygen Delivery Method Nasal Cannula Weight: 290 lb 12.635 oz Body Mass Index (BMI) 46.9 Intake & Output: Intake and Output for Last 24 Hours 05/20/24 05/21/24 05/22/24 23:59 23:59 23:59 Intake Total 1299 / 1540 1779 400 / 400 Balance 1300 / 1540 1779 400 / 400 Medical Nutrition Assessment Dietitian: Malnutrition Criteria Met Start: 05/20/24 13:40 Freq: Status: Active Protocol: Document 05/20/24 13:40 VICKI (Rec: 05/20/24 13:40 VICKI [id number]) Nutrition Malnutrition Evidence of Yes Malnutrition Exists Malnutrition (severe Acute Illness/Injury ): Evidenced By Suboptimal Energy Intake (Severe),Weight Loss (Severe) Clinical Problem Acute Disease or Injury Related Malnutrition Etiology related to acute illness and inadequate energy intake Signs/Symptoms as evidenced by po intake meeting <75% of est nutritional needs and ~3% unintended wt loss x < 1 wk Status Active Problem Recommendation Dietitian Continue liberal regular diet per pt request Recommendations/ Changes Lab / Micro Data 05/22/24 08:00 05/22/24 08:00 Labs: Laboratory Results - last 24 hr 05/22/24 08:00: WBC 7.9, RBC 4.71, Hgb 12.5, Hct 42.1, MCV 89.4, MCH 26.5 L, M CHC 29.7 L D, RDW Std Deviation 56.6 H, RDW Coeff of Kevin 17.2 H, Plt Count 306, MPV 9.7, Immature Gran % (Auto) 1.100 H, Neut % (Auto) 82.3 H, Lymph % (Auto) 11.0 L, [place] % (Auto) 5.3, Eos % (Auto) 0.0, Baso % (Auto) 0.3, Absolute Neuts (auto) 6.5, Absolute Lymphs (auto) 0.87, Nucleated RBC % 0, Atypical Lymphocytes 1+, Sodium 139, Potassium 3.9, Chloride 105, Carbon Dioxide 25.0, Anion Gap 8, B UN 19 H, Creatinine 0.97, Estim Creat Clear Calc 88.16, Est GFR (MDRD) Af Amer 76, Est GFR (MDRD) Non-Af 63, BUN/Creatinine Ratio 19.7, Glucose 132 H, Calcium 9.1, Phosphorus 3.0 Micro: Microbiology 05/19/24 16:25 Mucosa - Nose SARS-CoV-2, Influenza & RSV (PCR) - Final Influenzae A Physical Exam Const alert, oriented x3 and no apparent distress Constitutional Narrative: obese HEENT normocephalic, head/scalp atraumatic, moist oral mucous membranes and oropharynx normal Eyes PERRL and EOMs intact bilaterally Neck no lymphadenopathy and supple Lymph Lymphatic: no lymphadenopathy noted and no lymphedema noted Resp Resp Narrative: lung sound very tight, diminished breath sounds bilaterally,mild wheezing, no crackles. On 2L of oxygen by nasal canula. Cardio regular rate, regular rhythm, S1 normal heart sound, S2 normal heart sound and no murmurs GI normal to inspection, nondistended, normoactive bowel sounds, soft to palpation, non-tender and non-distended Extremity normal capillary refill, no clubbing, cyanosis or edema and no calf tenderness General Extremity: no tenderness to palpation of joints or extremities Skin General Skin Exam: no breakdown Neuro CN's II-XII intact bilaterally, no focal motor deficits and no sensory deficits noted Coordination / Balance: [id number] test normal Motor Exam: strength 5/5 throughout and general weakness Psych thought process normal and cooperative Appearance: appropriate Assessment & Plan Assessment/Plan (1) Influenza A: (2) Hypoxia: (3) Dyspnea: (4) Chronic cough: (5) Bronchitis: PLAN: Plan #Hypoxia due to influenza A infection * Patient still feeling short of breath and her lungs still sound very tight. * On 2 L of oxygen by nasal cannula. Breathing treatments bronchodilators. On IV Solu-Medrol and Tamiflu. * Encourage incentive spirometer use. Titrate oxygen to maintain saturation above 90%. * #CIARAN: Creatinine was 1.25 on admission and is now down to 0.97 which is around her baseline. Resolved. Will monitor. #Benign essential hypertension: On amlodipine. IV hydralazine. #Depression: On Zoloft #Rheumatoid arthritis: On Plaquenil #Super morbid obesity: BMI is 46.8. Complicates acute care, expected recovery and prognosis. #DVT prophylaxis: Lovenox Charges/Coding Visit Charges Inpatient E&M: 16871 Subs Hosp L2
[2024-05-22] MEDS: DiphenhydrAMINE 25 MG Capsule PO (21:02)
[2024-05-22] MEDS: MELATONIN 10 MG TABLET 5 MG PO (21:02)
[2024-05-23] VITALS (11 sets, daily range): BP systolic 121–156; BP diastolic 71–93; PULSE 78–95; RESP 16–20; TEMP 36.3–36.6; O2SAT 91–96
[2024-05-23] MEDS: 0.9% Saline Lock 10 ML Syringe IV ×3 (05:05→21:05)
[2024-05-23 06:03] LABS: Absolute Lymphocyte Count 0.97 X10^3/uL (0.83-4.51); Basophil# 0.02 X10^3/uL; Basophil% 0.2 % (0-1); Eosinophil# 0.03 X10^3/uL; Eosinophils% 0.3 % (0-5); Hemoglobin 12.6 g/dL (12.0-15.0); Lymphocyte # 0.97 X10^3/ul (0.83-4.51); Lymphocyte % 10.2 % (19-41); Mean Corpuscular Hgb 26.7 pg (27.0-32.0); Mean Platelet Vol. 9.9 fl (6.2-12.0); Monocyte# 0.38 X10^3/uL; NRBC Flagged by Analyzer 0 % (0-5); Neutrophil % 83.8 % (47-70); Platelet Count 308 K/mm3 (150-450); RBC Distribution Width CV 17.1 % (11.6-14.6); RBC Distribution Width SD 55.2 fl (35.1-43.9); Red Blood Count 4.72 M/mm3 (4.2-5.4); White Blood Count 9.5 K/mm3 (4.4-11.0)
[2024-05-23 06:51] LABS: Anion Gap 8 (5-15); BUN 16 mg/dL (7-18); BUN/Creat Ratio 17.8 RATIO (10-20); Chloride 105 mmol/L (98-107); EST Glomerular Filtration Rate 68 mL/min (>60); Est Glom Filt Rate - Afr Amer 83 mL/min (>60); Estimated Creatinine Clearance 95.02 ml/min; Glucose 132 mg/dL (74-106); Potassium 3.9 mmol/L (3.5-5.1); Sodium Level 139 mmol/L (136-145)
[2024-05-23] MEDS: Ipratropium/Albuterol Sulfate 3 ML AMPUL.NEB INHALATION ×4 (07:46→21:08)
[2024-05-23] MEDS: Sertraline 50 MG Tablet PO (10:11)
[2024-05-23] MEDS: Folic Acid 1 MG Tablet PO ×2 (10:11→17:40)
[2024-05-23] MEDS: Oseltamivir Phosphate 75 MG Capsule PO ×2 (10:11→21:05)
[2024-05-23] MEDS: Loratadine 10 MG Tablet PO (10:11)
[2024-05-23] MEDS: Hydroxychloroquine 200 MG Tablet PO ×2 (10:11→17:40)
[2024-05-23] MEDS: guaiFENesin/D-Methorphan TAB.SR.12H 1 TABLET PO ×2 (10:12→21:05)
[2024-05-23] MEDS: Enoxaparin 40 MG/0.4 ML Syringe SC (10:12)
[2024-05-23] MEDS: Nystatin Powder 15gm Bottle 1 APPLIC TOPICAL ×2 (10:12→21:06)
[2024-05-23] MEDS: amLODIPine 5 MG Tablet PO (10:12)
[2024-05-23] MEDS: Benzonatate 100 MG Capsule PO ×3 (10:23→21:05)
--- NOTE | 2024-05-23 13:06 | PN_ITS ---
Subjective Subjective Patient seen and examined. She is she feels a little bit better today. She does not think her lung sounds are tight. She was on 2 L of oxygen. She is coughing and able to bring up scant sputum. Review of systems otherwise negative. Objective Data Objective Data Vital Signs: Vital Signs Temp Pulse Resp BP Pulse Ox O2 Del Method O2 Flow Rate 97.6 F L 82 18 125/73 H 94 Room Air 2 05/23/24 10:08 05/23/24 11:40 05/23/24 11:40 05/23/24 10:08 05/23/24 11:50 05/23/24 11:50 05/23/24 07:55 Oxygen Flow Rate (L/min) 2 Oxygen Delivery Method Room Air Weight: 290 lb 12.635 oz Body Mass Index (BMI) 46.9 Intake & Output: Intake and Output for Last 24 Hours 05/21/24 05/22/24 05/23/24 23:59 23:59 23:59 Intake Total 1779 Balance 1779 Medical Nutrition Assessment Dietitian: Malnutrition Criteria Met Start: 05/20/24 13:40 Freq: Status: Active Protocol: Document 05/20/24 13:40 VICKI (Rec: 05/20/24 13:40 VICKI [id number]) Nutrition Malnutrition Evidence of Yes Malnutrition Exists Malnutrition (severe Acute Illness/Injury ): Evidenced By Suboptimal Energy Intake (Severe),Weight Loss (Severe) Clinical Problem Acute Disease or Injury Related Malnutrition Etiology related to acute illness and inadequate energy intake Signs/Symptoms as evidenced by po intake meeting <75% of est nutritional needs and ~3% unintended wt loss x < 1 wk Status Active Problem Recommendation Dietitian Continue liberal regular diet per pt request Recommendations/ Changes Lab / Micro Data 05/23/24 05:39 05/23/24 05:39 Labs: Laboratory Results - last 24 hr 05/23/24 05:39: WBC 9.5, RBC 4.72, Hgb 12.6, Hct 42.0, MCV 89.0, MCH 26.7 L, M CHC 30.0 L, RDW Std Deviation 55.2 H, RDW Coeff of Kevin 17.1 H, Plt Count 308, MPV 9.9, Immature Gran % (Auto) 1.500 H, Neut % (Auto) 83.8 H, Lymph % (Auto) 10.2 L, [place] % (Auto) 4.0, Eos % (Auto) 0.3, Baso % (Auto) 0.2, Absolute Neuts (auto) 8.0 H, Absolute Lymphs (auto) 0.97, Nucleated RBC % 0, Sodium 139, Potassium 3.9, Chloride 105, Carbon Dioxide 26.0, Anion Gap 8, BUN 16, Creatinine 0.90, Estim Creat Clear Calc 95.02, Est GFR (MDRD) Af Amer 83, Est GFR (MDRD) Non-Af 68, BUN/Creatinine Ratio 17.8, Glucose 132 H, Calcium 9.0 Micro: Microbiology 05/19/24 16:25 Mucosa - Nose SARS-CoV-2, Influenza & RSV (PCR) - Final Influenzae A Physical Exam Const alert, oriented x3, no apparent distress and average body habitus Constitutional Narrative: morbidly obese General Appearance: cooperative, comfortable and well developed Orientation / Consciousness: awake, oriented to person, oriented to place and oriented to time HEENT normocephalic, head/scalp atraumatic, hearing grossly normal bilaterally, nasal mucous membranes and turbinates normal, moist oral mucous membranes and oropharynx normal Eyes PERRL, EOMs intact bilaterally and conjunctivae normal Neck full ROM, no lymphadenopathy, supple, no JVD, thyroid normal and no carotid bruits General: trachea midline Lymph Lymphatic: no lymphadenopathy noted and no lymphedema noted Chest inspection of chest normal Resp no use of accessory muscles and clear to auscultation bilaterally Resp Narrative: Lungs sound less tight today. Has few bilateral crackles. Also on 2 L of oxygen but weaned down to room air. Cardio regular rate, regular rhythm, S1 normal heart sound, S2 normal heart sound, no murmurs, no rub, no gallops and peripheral pulses 2+ throughout GI normal to inspection, nondistended, normoactive bowel sounds, soft to palpation, non-tender and non-distended Back/Spine normal ROM Extremity normal to inspection, normal capillary refill, no clubbing, cyanosis or edema, no calf tenderness and no pedal edema General Extremity: no tenderness to palpation of joints or extremities Skin no rashes or lesions noted General Skin Exam: no breakdown Neuro oriented x3, CN's II-XII intact bilaterally, moves all extremities, no focal motor deficits and no sensory deficits noted Sensorium / Orientation: awake and alert Coordination / Balance: [id number] test normal Speech: speech normal Motor Exam: strength 5/5 throughout and general weakness Psych mental status grossly normal, thought process normal, cooperative and affect normal Appearance: appropriate Assessment & Plan Assessment/Plan (1) Influenza A: (2) Hypoxia: (3) Dyspnea: (4) Chronic cough: (5) Bronchitis: PLAN: Plan #Hypoxia due to influenza A infection * her breathing is improving and lung sound less tight today. * On 2 L of oxygen by nasal cannula this morning but was weaned down to room air. Breathing treatments bronchodilators. On IV Solu-Medrol and Tamiflu. * Encourage incentive spirometer use. Titrate oxygen to maintain saturation above 90%. * #CIARAN: resolved. #Benign essential hypertension: On amlodipine. IV hydralazine. #Depression: On Zoloft #Rheumatoid arthritis: On Plaquenil #Pulmonary nodule: * CT of the chest done on admission showed evidence of a 7 mm peripheral pulmonary nodule in the right lower lobe. * She is follow-up with her PCP for further imaging as deemed necessary. * #Super morbid obesity: BMI is 46.8. Complicates acute care, expected recovery and prognosis. #DVT prophylaxis: Lovenox Charges/Coding Visit Charges Inpatient E&M: 20696 Subs Hosp L2
[2024-05-23] MEDS: MELATONIN 10 MG TABLET 5 MG PO (21:05)
[2024-05-23] MEDS: DiphenhydrAMINE 25 MG Capsule PO (21:05)
[2024-05-24] VITALS (7 sets, daily range): BP systolic 109–136; BP diastolic 58–71; PULSE 80–88; RESP 18–20; TEMP 36.4–36.5; O2SAT 89–94
[2024-05-24] MEDS: 0.9% Saline Lock 10 ML Syringe IV ×2 (05:35→16:45)
[2024-05-24 07:01] LABS: Absolute Lymphocyte Count 0.93 X10^3/uL (0.83-4.51); Absolute Neutrophil Count 9.1 X10^3/uL (2.0-7.7); Basophil# 0.06 X10^3/uL; Basophil% 0.6 % (0-1); Hematocrit 42.7 % (37-47); Hemoglobin 12.7 g/dL (12.0-15.0); Lymphocyte # 0.93 X10^3/ul (0.83-4.51); Lymphocyte % 8.5 % (19-41); Mean Corp Hgb Conc 29.7 g/dL (32-36); Mean Corpuscular Hgb 27.5 pg (27.0-32.0); Mean Corpuscular Volume 92.6 fL (81-99); Mean Platelet Vol. 9.7 fl (6.2-12.0); Monocyte# 0.58 X10^3/uL; Monocyte% 5.3 % (0-10); NRBC Flagged by Analyzer 0.2 % (0-5); Neutrophil # 9.06 X10^3/uL (2.7-7.7); Neutrophil % 83.3 % (47-70); Platelet Count 309 K/mm3 (150-450); RBC Distribution Width CV 17.2 % (11.6-14.6); RBC Distribution Width SD 57.7 fl (35.1-43.9); Red Blood Count 4.61 M/mm3 (4.2-5.4); White Blood Count 10.9 K/mm3 (4.4-11.0)
[2024-05-24] MEDS: Ipratropium/Albuterol Sulfate 3 ML AMPUL.NEB INHALATION ×3 (07:26→14:03)
[2024-05-24 07:44] LABS: Anion Gap 6 (5-15); BUN 19 mg/dL (7-18); BUN/Creat Ratio 21.6 RATIO (10-20); Calcium,Total 9.1 mg/dL (8.5-10.1); Chloride 106 mmol/L (98-107); Creatinine, Serum 0.88 mg/dL (0.55-1.02); EST Glomerular Filtration Rate 70 mL/min (>60); Est Glom Filt Rate - Afr Amer 85 mL/min (>60); Estimated Creatinine Clearance 97.18 ml/min; Glucose 118 mg/dL (74-106); Potassium 4.1 mmol/L (3.5-5.1); Sodium Level 138 mmol/L (136-145)
[2024-05-24] MEDS: Nystatin Powder 15gm Bottle 1 APPLIC TOPICAL (10:20)
[2024-05-24] MEDS: amLODIPine 5 MG Tablet PO (10:20)
[2024-05-24] MEDS: Sertraline 50 MG Tablet PO (10:20)
[2024-05-24] MEDS: Loratadine 10 MG Tablet PO (10:20)
[2024-05-24] MEDS: Oseltamivir Phosphate 75 MG Capsule PO (10:20)
[2024-05-24] MEDS: guaiFENesin/D-Methorphan TAB.SR.12H 1 TABLET PO (10:20)
[2024-05-24] MEDS: Enoxaparin 40 MG/0.4 ML Syringe SC (10:20)
[2024-05-24] MEDS: Hydroxychloroquine 200 MG Tablet PO ×2 (10:20→16:46)
[2024-05-24] MEDS: Folic Acid 1 MG Tablet PO ×2 (10:20→16:46)
--- NOTE | 2024-05-24 14:57 | DCINST_ITS ---
Discharge Instructions Diet Discharge Diet: Low fat / Low cholesterol DC O2, CPAP, BIPAP needs RN Home O2 Qualification: Home O2 Qualification: Is the patient on home oxygen No 05/24/24 11:15 Home O2 Qualification: AT REST 1- Pulse Ox at rest 94 05/24/24 11:15 Home O2 Qualification: WITH AMBULATION 1- Pulse Ox with ambulation 89 05/24/24 11:15 1- Oxygen Flow Rate with 0 05/24/24 11:15 ambulation Home O2 Discharge instructions: No Follow Up Care Test Results: Test results from this visit will be discussed in further detail at your follow- up appointment, if applicable. Discharge Plan Admission Admit Date/Time: 05/19/24 18:08 Primary Reason for Your Visit: acute influenza infection Attending Provider: Nany Kebede Primary Care Provider: Nicky Covarrubias Consulting Providers: Oli Marcelino; Zelalem Ramires Instructions Patient Instructions: ED Influenza (Adult) Discharge Orders/Prescriptions Prescriptions: New prednisone 20 mg tablet 40 mg PO DAILY Qty: 10 0RF Continued melatonin 5 mg capsule 5 mg PO QHS loratadine [Claritin] 10 mg tablet 10 mg PO DAILY methotrexate sodium 2.5 mg tablet 20 mg PO QWEEK Patient Comments: per pt takes 10 mg BID qmonday. albuterol sulfate 90 mcg/actuation HFA aerosol inhaler 2 puff inhalation Q6H PRN (Reason: shortness of breath or wheezing) Qty: 8.5 3RF rizatriptan 10 mg tablet 10 mg PO ONCE PRN (Reason: migraine headache) Rx Instructions: as a single dose benzonatate 100 mg capsule 100 mg PO BID-TID PRN (Reason: cough) Qty: 90 0RF buspirone 7.5 mg tablet 7.5 mg PO BID Patient Comments: per pt no longer taking hydroxychloroquine [Plaquenil] 200 mg tablet 200 mg PO BID Qty: 60 1RF folic acid 1 mg tablet 1 mg PO BID Qty: 90 1RF amlodipine 5 mg tablet 5 mg PO DAILY Qty: 90 0RF sertraline 50 mg tablet 50 mg PO DAILY Qty: 90 0RF fluticasone furoate-vilanterol [Breo Ellipta] 100-25 mcg/dose blister with device 1 inh inhalation Q24H Qty: 60 0RF Discontinued prednisone 10 mg tablets,dose pack See Rx Instructions PO PER PKG DIR Qty: 48 0RF Rx Instructions: PO PER PKG DIR Referrals / Follow Up: Nicky Covarrubias MD [Primary Care Provider] - Within 1 Week Disposition Disposition (needs filled in before D/C Order can be placed): Home, Self Care
--- NOTE | 2024-05-24 14:59 | PCM.DC.SUM ---
Providers Date of Admission: 05/19/24 Date of Discharge: 05/24/24 Primary Care Physician: Dr. Nicky Covarrubias MD Reason For Visit: FLU A INFECTION WITH HYPOXIA AND CIARAN Diagnosis Discharge Diagnosis (1) Influenza A: Status: Acute Code(s): J10.1 - Influenza due to other identified influenza virus with other respiratory manifestations (2) Hypoxia: Status: Acute Code(s): R09.02 - Hypoxemia (3) Dyspnea: Status: Acute Code(s): R06.00 - Dyspnea, unspecified (4) Chronic cough: Status: Chronic Code(s): R05.3 - Chronic cough (5) Bronchitis: Status: Acute Code(s): J40 - Bronchitis, not specified as acute or chronic Plan #Hypoxia due to influenza A infection her breathing is improving and lung sound less tight today. On 2 L of oxygen by nasal cannula this morning but was weaned down to room air. Breathing treatments bronchodilators. On IV Solu-Medrol and Tamiflu. Encourage incentive spirometer use. Titrate oxygen to maintain saturation above 90%. #CIARAN: resolved. #Benign essential hypertension: On amlodipine. IV hydralazine. #Depression: On Zoloft #Rheumatoid arthritis: On Plaquenil #Pulmonary nodule: CT of the chest done on admission showed evidence of a 7 mm peripheral pulmonary nodule in the right lower lobe. She is follow-up with her PCP for further imaging as deemed necessary. #Super morbid obesity: BMI is 46.8. Complicates acute care, expected recovery and prognosis. #DVT prophylaxis: Lovenox Medications at Discharge Home Medications loratadine 10 mg tablet (Claritin) 10 mg PO DAILY congestion 05/23/20 melatonin 5 mg capsule 5 mg PO QHS sleep 05/23/20 hydroxychloroquine 200 mg tablet (Plaquenil) 200 mg PO BID #60 tabs 06/03/22 folic acid 1 mg tablet 1 mg PO BID supplement #90 tabs 06/15/22 methotrexate sodium 2.5 mg tablet 20 mg PO QWEEK RA 09/24/22 albuterol sulfate 90 mcg/actuation aerosol inhaler 2 puff inhalation Q6H PRN shortness of breath or wheezing #8.5 grams 09/23/23 rizatriptan 10 mg tablet 10 mg PO ONCE PRN migraine headache 12/23/23 amlodipine 5 mg tablet 5 mg PO DAILY blood pressure #90 TABLETS 01/31/24 sertraline 50 mg tablet 50 mg PO DAILY mental health #90 TABLETS 01/31/24 benzonatate 100 mg capsule 100 mg PO BID-TID PRN cough #90 caps 04/27/24 fluticasone furoate 100 mcg-vilanterol 25 mcg/dose inhalation powder (Breo Ellipta) 1 inh inhalation Q24H breathing #60 ea 05/15/24 buspirone 7.5 mg tablet 7.5 mg PO BID mood 05/19/24 prednisone 20 mg tablet 40 mg (2 x 20 mg) PO DAILY #10 tabs 05/24/24 Hospital Course Operations None Procedures None Summary of Care Provided Minutes Spent on Discharge: 45 Hospital Course: Patient is a 58 y/o female with a PMH as outlined who was admitted via the ED On 05/19/2024 with a complaint of shortness of breath and upper respiratory symptoms. She had had a cough and fatigue for several weeks prior to admission and had been eating and drinking well. His symptoms were not improving so she came to the ED. She was tachycardic in the ED and required 3 L of oxygen. She had a remote history of smoking and had quit about 15 years prior to admission. Respiratory panel was positive for influenza. She says she did not receive the influenza vaccine this season. She was admitted and managed for hypoxia due to influenza. She was placed on IV Solu-Medrol and breathing treatments bronchodilators. She was also placed on Tamiflu. Patient had a prolonged hospital course and slowly improved. Her shortness of breath gradually improved and she was weaned down and off of oxygen. She had a walking pulse ox on 05/24/2024 which showed she did not require any oxygen. She was therefore discharged home on 05/24/2024. She was discharged the prescription for p.o. prednisone 40 mg daily for 5 days. She is follow-up with her primary care doctor within 1 to 2 weeks. Patient seen and examined prior to discharge. She had no active complaints. Review of symptoms otherwise negative. Labs and vitals reviewed. Home medications reviewed and reconciled. Physical Exam Const alert, oriented x3, no apparent distress and average body habitus Constitutional Narrative: morbidly obese General Appearance: cooperative, comfortable, well kempt and well developed Orientation / Consciousness: awake, oriented to person, oriented to place and oriented to time Exam Limitations: no limitations HEENT normocephalic, head/scalp atraumatic, hearing grossly normal bilaterally, nasal mucous membranes and turbinates normal, moist oral mucous membranes and oropharynx normal Mouth: oral and palatal mucosa normal Eyes PERRL, EOMs intact bilaterally and conjunctivae normal Neck full ROM, no lymphadenopathy, supple, no JVD, thyroid normal and no carotid bruits General: trachea midline Lymph Lymphatic: no lymphadenopathy noted and no lymphedema noted Chest inspection of chest normal Resp normal respiratory effort, no retractions, no use of accessory muscles and clear to auscultation bilaterally Resp Narrative: mildly diminished breath sounds bilaterally, no wheezes or crackles. On room air. Auscultation: Negative for rales, rhonchi or wheezes Cardio regular rate, regular rhythm, S1 normal heart sound, S2 normal heart sound, no murmurs, no rub, no gallops and peripheral pulses 2+ throughout Cardio Narrative: Tachycardic, regular rhythm. GI normal to inspection, nondistended, normoactive bowel sounds, soft to palpation, non-tender and non-distended Back/Spine normal ROM Extremity normal to inspection, normal capillary refill, no clubbing, cyanosis or edema, no calf tenderness and no pedal edema General Extremity: no tenderness to palpation of joints or extremities Skin no rashes or lesions noted General Skin Exam: no breakdown Neuro oriented x3, CN's II-XII intact bilaterally, moves all extremities, no focal motor deficits and no sensory deficits noted Sensorium / Orientation: awake and alert Coordination / Balance: birzff-by-yvam test normal Speech: speech normal Motor Exam: strength 5/5 throughout and general weakness Psych mental status grossly normal, thought process normal, cooperative and affect normal Appearance: appropriate Medical Records Data Medical Nutrition Assessment Dietitian: Malnutrition Criteria Met Start: 05/20/24 13:40 Freq: Status: Active Protocol: Document 05/20/24 13:40 VICKI (Rec: 05/20/24 13:40 [facility] [id number]) Nutrition Malnutrition Evidence of Yes Malnutrition Exists Malnutrition (severe Acute Illness/Injury ): Evidenced By Suboptimal Energy Intake (Severe),Weight Loss (Severe) Clinical Problem Acute Disease or Injury Related Malnutrition Etiology related to acute illness and inadequate energy intake Signs/Symptoms as evidenced by po intake meeting <75% of est nutritional needs and ~3% unintended wt loss x < 1 wk Status Active Problem Recommendation Dietitian Continue liberal regular diet per pt request Recommendations/ Changes Weight / BMI Weight Weight: 290 lb 12.635 oz Body Mass Index (BMI) 46.9 ABG / Lab / Microbiology Data 05/24/24 06:33 05/24/24 06:33 Laboratory: Laboratory Results - last 24 hr 05/24/24 06:33: WBC 10.9, RBC 4.61, Hgb 12.7, Hct 42.7, MCV 92.6, MCH 27.5, MCHC 29.7 L, RDW Std Deviation 57.7 H, RDW Coeff of Kevin 17.2 H, Plt Count 309, MPV 9.7, Immature Gran % (Auto) 2.300 H, Neut % (Auto) 83.3 H, Lymph % (Auto) 8.5 L, [place] % (Auto) 5.3, Eos % (Auto) 0.0, Baso % (Auto) 0.6, Absolute Neuts (auto) 9.1 H, Absolute Lymphs (auto) 0.93, Nucleated RBC % 0.2, Sodium 138, Potassium 4.1, Chloride 106, Carbon Dioxide 27.0, Anion Gap 6, BUN 19 H, Creatinine 0.88, Estim Creat Clear Calc 97.18, Est GFR (MDRD) Af Amer 85, Est GFR (MDRD) Non-Af 70, BUN/Creatinine Ratio 21.6 H, Glucose 118 H, Calcium 9.1 Microbiology: Microbiology 05/19/24 16:25 Mucosa - Nose SARS-CoV-2, Influenza & RSV (PCR) - Final Influenzae A D/C Instructions Discharge Diet: Low fat / Low cholesterol Discharge Activity: Return to Normal Activity Weight Bearing Status: Weight bearing as tolerated Call your doctor if you observe: Fever of 101 or Higher, Shortness of breath, Dizziness, Swelling in the ankles, Chest pain and Increased palpitations (irregular heartbeat) DC O2, CPAP, BIPAP Needs RN Home O2 Qualification: Home O2 Qualification: Is the patient on home oxygen No 05/24/24 11:15 Home O2 Qualification: AT REST 1- Pulse Ox at rest 94 05/24/24 11:15 Home O2 Qualification: WITH AMBULATION 1- Pulse Ox with ambulation 89 05/24/24 11:15 1- Oxygen Flow Rate with 0 05/24/24 11:15 ambulation Home O2 Discharge instructions: No DC home with Oxygen: No Meaningful Use Info Meaningful Use Meaningful Use Diagnoses (Choose all that apply): None applicable Ischemic Stroke Statin Dosing Therapy Reference: STATIN DOSE THERAPY REFERENCE: * Patients > 75 years receive moderate or high dose statin therapy. * Patients 75 years or YOUNGER should receive HIGH intensity statin dose unless contraindicated. You will be required to document reason for non-treatment if statin daily dose does not meet guidelines. HIGH DOSE STATIN THERAPY DAILY Atorvastatin > than or = to 40 mg Rosuvastatin > than or = to 20 mg Amlodipine + Atorvastatin > than or = to 2.5/40 mg Ezetimibe + Simvastatin 10/80 mg Simvastatin 80mg Discharge Plan Admission Admit Date/Time: 05/19/24 18:08 Primary Reason for Your Visit: acute influenza infection Attending Provider: Nany Kebede Primary Care Provider: Nicky Covarrubias Consulting Providers: Oli Marcelino; Zelalem Ramires Instructions Patient Instructions: ED Influenza (Adult) Discharge Orders/Prescriptions Prescriptions: New prednisone 20 mg tablet 40 mg PO DAILY Qty: 10 0RF Continued melatonin 5 mg capsule 5 mg PO QHS loratadine [Claritin] 10 mg tablet 10 mg PO DAILY methotrexate sodium 2.5 mg tablet 20 mg PO QWEEK Patient Comments: per pt takes 10 mg BID qmonday. albuterol sulfate 90 mcg/actuation HFA aerosol inhaler 2 puff inhalation Q6H PRN (Reason: shortness of breath or wheezing) Qty: 8.5 3RF rizatriptan 10 mg tablet 10 mg PO ONCE PRN (Reason: migraine headache) Rx Instructions: as a single dose benzonatate 100 mg capsule 100 mg PO BID-TID PRN (Reason: cough) Qty: 90 0RF buspirone 7.5 mg tablet 7.5 mg PO BID Patient Comments: per pt no longer taking hydroxychloroquine [Plaquenil] 200 mg tablet 200 mg PO BID Qty: 60 1RF folic acid 1 mg tablet 1 mg PO BID Qty: 90 1RF amlodipine 5 mg tablet 5 mg PO DAILY Qty: 90 0RF sertraline 50 mg tablet 50 mg PO DAILY Qty: 90 0RF fluticasone furoate-vilanterol [Breo Ellipta] 100-25 mcg/dose blister with device 1 inh inhalation Q24H Qty: 60 0RF Discontinued prednisone 10 mg tablets,dose pack See Rx Instructions PO PER PKG DIR Qty: 48 0RF Rx Instructions: PO PER PKG DIR Referrals / Follow Up: Nicky Covarrubias MD [Primary Care Provider] - 06/01/24 6:00 pm Disposition Disposition (needs filled in before D/C Order can be placed): Home, Self Care Charges/Coding Visit Charges Inpatient E&M: 42343 Disch Hosp >30min
--- NOTE | 2024-05-24 15:04 | CASEMGMT ---
Patient has order for discharge. Patient does not qualify for home oxygen. RN CM in to discuss needs at discharge. Patient independent in room. Patient denies needs or help at discharge. Patient had no further questions or concerns
[2024-05-24] MEDS: Benzonatate 100 MG Capsule PO (16:45)
== END 2024-05-24 17:00 | disposition home or self-care (01) | DRG 193 ==
LOC: ED 18:27 → PCU 19:44
PROVIDERS: Internal Medicine; Nurse Practitioner; Admitting Provider Hospitalist; Emergency Provider Emergency Medicine; PCP Internal Medicine; Referring Provider Hospitalist; Visit Provider Student in an Organized Health Care Education/Training Program
DX: J10.1 Influenza due to other identified influenza virus with other respiratory manifestations (principal); E43 Unspecified severe protein-calorie malnutrition; J44.0 Chronic obstructive pulmonary disease with (acute) lower respiratory infection; J44.1 Chronic obstructive pulmonary disease with (acute) exacerbation; Z68.42 Body mass index [BMI] 45.0-49.9, adult; N17.9 Acute kidney failure, unspecified; E86.0 Dehydration; M06.9 Rheumatoid arthritis, unspecified; I12.9 Hypertensive chronic kidney disease with stage 1 through stage 4 chronic kidney disease, or unspecified chronic kidney disease; F32.A Depression, unspecified; N18.9 Chronic kidney disease, unspecified; E87.6 Hypokalemia; J30.2 Other seasonal allergic rhinitis; E66.01 Morbid (severe) obesity due to excess calories; J20.9 Acute bronchitis, unspecified; R09.02 Hypoxemia; F41.1 Generalized anxiety disorder; Z87.891 Personal history of nicotine dependence
CPT/HCPCS: 36415; 71046; 71275; 80048; 83735; 84100; 85025; 85027; 85379; 87631; 93005; 94640; 94668; 94762; 97802; 99285; Q9967; A4216

== ENCOUNTER → 2024-05-29 | Outpatient (CLI) | payer BC, SELFPAY | END | disposition home or self-care (01) | LOC: LABSPEC 15:05 | PROVIDERS: PCP Internal Medicine; Visit Provider Physician Assistant Surgical | DX: R82.90 Unspecified abnormal findings in urine (principal) | CPT/HCPCS: 87086; 87088; 87186 ==

== ENCOUNTER → 2024-06-28 | Outpatient (CLI) | payer BC, SELFPAY | END | disposition home or self-care (01) | LOC: PSN 09:28 | PROVIDERS: PCP Internal Medicine; Referring Provider Internal Medicine; Visit Provider Internal Medicine | DX: R05.3 Chronic cough (principal); Z87.891 Personal history of nicotine dependence | CPT/HCPCS: 94060; 94726; 94729 ==

== ENCOUNTER → 2024-08-09 | Outpatient (CLI) | payer BC, OTHER, SELFPAY ==
[2024-08-09 12:26] LABS: Absolute Lymphocyte Count 1.43 X10^3/uL (0.83-4.51); Basophil# 0.03 X10^3/uL; Basophil% 0.5 % (0-1); Eosinophils% 1.6 % (0-5); Hemoglobin 12.3 g/dL (12.0-15.0); Lymphocyte # 1.43 X10^3/ul (0.83-4.51); Lymphocyte % 23.5 % (19-41); Mean Corpuscular Hgb 27.7 pg (27.0-32.0); Mean Corpuscular Volume 92.3 fL (81-99); Mean Platelet Vol. 9.8 fl (6.2-12.0); Monocyte# 0.47 X10^3/uL; Monocyte% 7.7 % (0-10); NRBC Flagged by Analyzer 0 % (0-5); Neutrophil # 4.04 X10^3/uL (2.7-7.7); Neutrophil % 66.4 % (47-70); Platelet Count 324 K/mm3 (150-450); RBC Distribution Width SD 61.1 fl (35.1-43.9); Red Blood Count 4.44 M/mm3 (4.2-5.4); White Blood Count 6.1 K/mm3 (4.4-11.0)
[2024-08-09 13:43] LABS: Pro- Brain NATRIURETIC PEPTIDE 354 pg/mL (<=900)
== END | disposition home or self-care (01) ==
LOC: BIMLAB 09:14
PROVIDERS: PCP Internal Medicine; Referring Provider Nurse Practitioner Family; Visit Provider Nurse Practitioner Family
DX: R06.02 Shortness of breath (principal)
CPT/HCPCS: 36415; 83880; 85025

== ENCOUNTER → 2024-09-05 | Outpatient (CLI) | payer BC, OTHER, SELFPAY ==
[2024-09-05 12:53] VITALS: PULSE 105; PULSE 106; PULSE 110; PULSE 115; PULSE 117; PULSE 90; PULSE 97; O2SAT 91; O2SAT 92; O2SAT 94; O2SAT 96
--- NOTE | 2024-09-11 07:19 | PCM.PSN.6M ---
PSN 6 Minute Walk Test 6 Minute Walk Test 6 Minute Walk Test: 6 Minute Walk Test PSN:6-Minute Walk Test Start: 09/05/24 12:53 Freq: Status: Active Protocol: [id number].[id number] Document 09/05/24 12:53 EDDIE (Rec: 09/05/24 12:55 EDDIE [id number]) 6 Minute Walk Test Date Performed 09/05/24 Time Performed 12:40 Height 5 ft 6 in Weight: 300 lb Weight in Pounds [address]: Zeinab Monique Assistive device None used: Pre-test Oxygen Delivery Room Air Method Pulse Ox (%) 94 Pulse Rate (60-100 90 beats/min) Dyspnea Mohsen Scale ( 0 0-10) Exertion Mohsen Scale 6 (6-20) 1st minute Oxygen Delivery Room Air Method Pulse Ox (%) 92 Pulse Rate (60-100 106 H beats/min) 2nd minute Oxygen Delivery Room Air Method Pulse Ox (%) 91 Pulse Rate (60-100 106 H beats/min) 3rd minute Oxygen Delivery Room Air Method Pulse Ox (%) 91 Pulse Rate (60-100 105 H beats/min) 4th minute Oxygen Delivery Room Air Method Pulse Ox (%) 91 Pulse Rate (60-100 115 H beats/min) 5th minute Oxygen Delivery Room Air Method Pulse Ox (%) 92 Pulse Rate (60-100 110 H beats/min) 6th minute Oxygen Delivery Room Air Method Pulse Ox (%) 91 Pulse Rate (60-100 117 H beats/min) Dyspnea Mohsen Scale ( 3 0-10) Exertion Mohsen Scale 12 (6-20) Post-test Oxygen Delivery Room Air Method Pulse Ox (%) 96 Pulse Rate (60-100 97 beats/min) Full Laps Walked 18 Partial Lap, Number 37 of Tiles Walked Total Distance 1099 Walked (ft) Interpretation Interpretation: The patient ambulated 1099 feet over the course of 6 minutes beginning on room air without assistive devices. Pretesting oxygen saturation was noted to be 94% on room air. With ambulation, the jose oxygen saturation was 91%. There was no significant exertional oxygen desaturation. Recommendations Recommendations: There is no indication for the use of supplemental oxygen at this time.
== END | disposition home or self-care (01) ==
LOC: PSN 12:20
PROVIDERS: PCP Internal Medicine; Referring Provider Nurse Practitioner Family; Visit Provider Nurse Practitioner Family
DX: J44.9 Chronic obstructive pulmonary disease, unspecified (principal)
CPT/HCPCS: 94618

== ENCOUNTER → 2024-09-18 | Outpatient (CLI) | payer BC, SELFPAY | END | disposition home or self-care (01) | LOC: SL 19:49 | PROVIDERS: PCP Internal Medicine; Referring Provider Internal Medicine; Visit Provider Internal Medicine | DX: G47.33 Obstructive sleep apnea (adult) (pediatric) (principal) | CPT/HCPCS: 95810 ==

== ENCOUNTER → 2024-09-25 | Outpatient (CLI) | payer BC, OTHER, SELFPAY ==
--- NOTE | 2024-09-25 10:15 | BI_ITS ---
EXAM: SCRN MAMM (CAD)W/GLENDY BILAT DATE: 09/25/2024 CLINICAL HISTORY: F, Age 58 y/o , BREAST CANCER SCREENING Remote left excisional breast biopsy and prior bilateral needle aspirations. BREAST CANCER RISK ASSESSMENT: Not assessed. TECHNIQUE: Bilateral screening digital breast tomosynthesis with 2D and 3D images. Computer aided detection. COMPARISON: Prior exam(s) dated September 30, 2023.. FINDINGS: TISSUE DENSITY: The breast tissue is composed of scattered area of fibroglandular density. Bilateral Breast Mammographic Findings: No significant masses, calcifications or other abnormalities are identified. Stable small benign-appearing bilateral axillary lymph nodes. No suspicious masses, areas of developing architectural distortion, or suspicious calcifications. There has been no significant interval change. BI/SCRN MAMM (CAD)W/GLENDY BILAT IMPRESSION: OVERALL FINAL ASSESSMENT: BIRADS 2 BENIGN FINDING RECOMMENDATION: Routine annual follow-up in 1 Year A letter with findings and recommendations will be mailed to the patient. Reading Location: [place] [id number]
--- OUTSIDE RECORDS SUMMARY | 2024-09-25 22:12 | XMS RPT_ITS | CCD ---
Author Organization [facility] Care Team Providers Care Hand Blocker Name Role Phone Dr. Nicky Covarrubias Primary Care Provider [phone] Dr. Nicky Covarrubias Referring Provider [phone] SHARONA Schmitz Attending Provider Dr. Nicky Mcnulty Attending Provider [phone] Marci, Dr. Saunders Primary Care Provider [phone] Britt HANSON, TETO Friedman Attending Provider Dr. Nicky Covarrubias Attending Provider [phone] Dr. Nicky Covarrubias Referring Provider [phone] SHARONA Schmitz Attending Provider Dr. Nicky Mcnulty Primary Care Provider [phone]) Dr. Nicky Covarrubias Attending Provider [phone] Dr. Nicky Covarrubias Referring Provider [phone] Dr. Nicky Covarrubias Primary Care Provider [phone]) Dr. Nicky Covarrubias Attending Provider [phone] Dr. Nicky Covarrubias Referring Provider [phone] Dr. Nicky Covarrubias Primary Care Provider [phone]) Dr. Nicky Covarrubias Referring Provider [phone] TETO Antonio Attending Provider Dr. Nicky Covarrubias Attending Provider [phone] Oleghe MD, Dr. Efewongbe Primary Care Provider Marci MONAHAN, Dr. Saunders Attending Provider [phone] Marci MONAHAN, Dr. Saunders Referring Provider NURSE, SHERRY Attending Provider Unavailable Dr. Vikash Blake DO Emergency Provider Chari AMBROSE, Dr. Baird Admit Provider Chari AMBROSE, Dr. Baird Referring Provider Chari AMBROSE, Dr. Baird Other Provider Delio MONAHAN, Dr. Nany Flowers Attending Provider Keyla AMBROSE, Dr. Masterson Other Provider Keyla AMBROSE, Dr. Masterson Attending Provider Delio MONAHAN, Dr. Nany Flowers Other Provider [facility] SUPERVISOR DEHYDROGENATION-CDustin Attending Provider Mk Cotton Attending Provider Adolfo Riggins Attending Provider Kayden HANSON-CZeinab Attending Provider Kayden HANSON-CZeinab Referring Provider Dr. Nicky Covarrubias MD Primary Care Provider Marci MONAHAN, Dr. Saunders Attending Provider [phone] Marci MONAHAN, Dr. Saunders Referring Provider Kayden SUPERVISOR DEHYDROGENATION-CZeinab Other Provider Dr. Bryce Lo DO Attending Provider Oleghe, Efewongbe Primary Care Unavailable Alma, Donavon Attending Unavailable Oleghe, Efewongbe Referring Unavailable Oleghe, Efewongbe Primary Care Unavailable Oleghe, Efewongbe Attending Unavailable Oleghe, Efewongbe Referring Unavailable Oleghe, Efewongbe Primary Care Unavailable Oleghe, Efewongbe Referring Unavailable Oleghe, Efewongbe Attending Unavailable Rufener, Zeinab M Attending Unavailable Zeinab Monique Referring Unavailable Oleghe, Efewongbe Primary Care Unavailable Zeinab Monique Attending Unavailable Zeinab Monique Referring Unavailable Oleghe, Efewongbe Primary Care Unavailable Oleghe, Efewongbe Primary Care Unavailable Adolfo Riggins Attending Unavailable Oleghe, Efewongbe Referring Unavailable Oleghe, Efewongbe Primary Care Unavailable Zeinab Monique Attending Unavailable Oleghe, Efewongbe Referring Unavailable Oleghe, Efewongbe Primary Care Unavailable Oleghe, Efewongbe Attending Unavailable Oleghe, Efewongbe Referring Unavailable Oleghe, Efewongbe Primary Care Unavailable Oleghe, Efewongbe Referring Unavailable Oleghe, Efewongbe Attending Unavailable Oleghe, Efewongbe Primary Care Unavailable Mk Cotton Attending Unavailable Oleghe, Efewongbe Primary Care Unavailable Oleghe, Efewongbe Referring Unavailable Oleghe, Efewongbe Attending Unavailable Oleghe, Efewongbe Primary Care Unavailable Oleghe, Efewongbe Referring Unavailable Oleghe, Efewongbe Attending Unavailable Oli Marcelino Admitting Unavailable Mostkinjal, Oli Referring Unavailable Mostkinjal, Oli Consulting Unavailable Koram, Nany Kristie Attending Unavailable Oleghe, Efewongbe Primary Care Unavailable Zelalem Ramires Consulting Unavailable Oleghe, Efewongbe Primary Care Unavailable Oleghe, Efewongbe Referring Unavailable Oleghe, Efewongbe Attending Unavailable Zeinab Monique Consulting Unavailable Zeinab Monique Referring Unavailable Oleghe, Efewongbe Primary Care Unavailable Bryce Lo Attending Unavailable Mostkinjal, Oli Admitting Unavailable Mostkinjal, Oli Referring Unavailable Koram, Nany Kristie Attending Unavailable Oleghe, Efewongbe Primary Care Unavailable Chari, Oli Consulting Unavailable Keyla Zelalem Consulting Unavailable Koram, Nany Kristie Consulting Unavailable Oleghe, Efewongbe Primary Care Unavailable Oleghe, Efewongbe Attending Unavailable Oleghe, Efewongbe Referring Unavailable Oleghe, Efewongbe Primary Care Unavailable Oleghe, Efewongbe Attending Unavailable Oleghe, Efewongbe Referring Unavailable Oleghe, Efewongbe Primary Care Unavailable Oleghe, Efewongbe Referring Unavailable Oleghe, Efewongbe Attending Unavailable Oleghe, Efewongbe Primary Care Unavailable Oleghe, Efewongbe Referring Unavailable Oleghe, Efewongbe Attending Unavailable Oli Marcelino Attending Unavailable Oleghe, Efewongbe Primary Care Unavailable Mk Cotton Attending Unavailable Oleghe, Efewongbe Referring Unavailable Zelalem Ramires Attending Unavailable Oleghe, Efewongbe Primary Care Unavailable Dustin Botello NP Attending Unavailable Oleghe, Efewongbe Referring Unavailable Oleghe, Efewongbe Primary Care Unavailable Oleghe, Efewongbe Attending Unavailable Oleghe, Efewongbe Referring Unavailable Allergies Allergy Classification Reported Allergen(s) Allergy Type Date of Onset Reaction(s) Facility (8 sources) Erythromycin Drug Allergy 2 Vomiting [facility] (9 sources) HYDROcodone; Translations: [hydrocodone bitartrate] Drug Allergy 2 Rash [facility] (9 sources) Penicillins; Translations: [Penicillins] Propensity to adverse reactions 2 Upset Stomach [facility] (1 source) Erythromycin Drug Allergy 5 [facility] Repository Medications Current Medications Medication Drug Class(es) Dates Sig (Normalized) Sig (Original) Fluticasone-Umeclid in-Vilanter (2 sources) Start: 08-01-2024 Fluticasone-Umecli din-Vilanter (Trelegy Ellipta) 200-62.5-25 mcg blister with device Active 1 NMA INHALATION Q24H 60 August 01, 2024 12:00am folic acid 1 mg oral tablet (18 sources) Start: 03-23-2022 End: 06-15-2022 take 1 tablet by mouth twice daily Folic Acid 1 mg tablet Active 1 mg PO TWICE A DAY 90 June 15, 2022 10:42am Start: 08-20-2021 End: 03-23-2022 take 0.4 mg by mouth once daily Folic Acid 400 mcg tablet Discontinued 0.4 mg PO DAILY August 20, 2021 12:00am March 23, 2022 10:48am Start: 08-20-2021 End: 03-23-2022 take 0.4 mg by mouth once daily Folic Acid Discontinued 0.4 MG PO DAILY August 19, 2021 11:00pm March 23, 2022 9:48am loratadine 10 mg oral tablet (8 sources) Start: 05-23-2020 take 1 tablet by mouth once daily Loratadine (Claritin) 10 mg tablet Active 10 mg PO DAILY May 23, 2020 1:00am melatonin 5 mg oral capsule (8 sources) Start: 05-23-2020 take 1 capsule by mouth at bedtime Melatonin 5 mg capsule Active 5 mg PO AT BEDTIME May 23, 2020 1:00am methotrexate 2.5 mg oral tablet (20 sources) Folate Analog Metabolic Inhibitor Start: 09-24-2022 Methotrexate Sodium 2.5 mg tablet Active 20 mg PO EVERY WEEK September 24, 2022 2:46pm Start: 09-24-2022 take 20 mg by mouth every week Methotrexate Sodium Active 20 MG PO EVERY WEEK September 24, 2022 1:46pm Start: 01-02-2021 End: 09-24-2022 take 7 tablets by mouth every week Methotrexate Sodium 2.5 mg tablet Discontinued 17.5 mg PO EVERY WEEK July 14, 2022 10:36am September 24, 2022 2:48pm 7 pills one day per week Start: 01-02-2021 End: 09-24-2022 take 7 doses by mouth every week Methotrexate Sodium Discontinued 17.5 MG PO EVERY WEEK July 14, 2022 9:36am September 24, 2022 1:48pm 7 pills one day per week Start: 08-21-2020 End: 01-02-2021 take 5 tablets by mouth every week Methotrexate Sodium 2.5 mg tablet Discontinued 2.5 mg PO EVERY WEEK August 21, 2020 12:00am January 02, 2021 3:09pm 5 pills one day per week rizatriptan 10 mg oral tablet (7 sources) Serotonin-1b and Serotonin-1d Receptor Agonist Start: 09-28-2022 End: 12-23-2023 take 1 tablet by mouth once as needed for headache Rizatriptan 10 mg tablet Active 10 mg PO ONCE as needed for migraine headache December 23, 2023 2:51pm as a single dose Completed/Discontinued Medications Medication Drug Class(es) Dates Sig (Normalized) Sig (Original) 2 Quil (8 sources) Start: 05-23-2020 End: 05-23-2020 2 Quil Discontinued May 23, 2020 11:58am May 23, 2020 3:28pm 15mL daily Start: 05-23-2020 End: 05-23-2020 2 Quil Discontinued Kelley [email or web address] 12:00am May 23, 2020 2:28pm 15mL daily Start: 05-23-2020 End: 05-23-2020 2 Quil Discontinued Kelley cisneros 2020 1:00am May 23, 2020 3:28pm 15mL daily acetaminophen 325 mg oral capsule (8 sources) Start: 05-23-2020 End: 05-21-2024 take 1 capsule by mouth once as needed for pain Acetaminophen 325 mg capsule Discontinued 325 mg PO ONCE as needed for Pain May 23, 2020 1:00am May 21, 2024 3:26pm [id number] 200 actuat albuterol 0.09 mg/actuat metered dose inhaler (10 sources) beta2-Adrenerg ic Agonist Start: 12-19-2022 End: 06-21-2024 Albuterol Sulfate 90 mcg/actuation HFA aerosol inhaler Discontinued 2 NMA INHALATION EVERY 6 HOURS as needed for shortness of breath or wheezing 8.5 September 23, 2023 3:34pm June 21, 2024 3:07pm Start: 12-19-2022 take 1 puff(s) by in halation every six hours Albuterol Sulfate Active 2 PUFF INHALATION EVERY 6 HOURS 8.5 December 18, 2022 11:00pm Albuterol-Budesonide (Airsupra) 90-80 mcg/actuation HFA aerosol inhaler (3 sources) Start: 04-27-2024 End: 05-15-2024 Albuterol-Budesonide (Airsupra) 90-80 mcg/actuation HFA aerosol inhaler Discontinued 2 NMA INHALATION THREE TIMES A DAY as needed for shortness of breath 10.7 April 27, 2024 1:00am May 15, 2024 10:24am as a single dose; may repeat up to 6 doses per day (12 inhalations) amLODIPine 5 mg oral tablet (20 sources) Dihydropyridine Calcium Channel Wayne Start: 05-23-2020 End: 06-12-2024 take 1 tablet by mouth once daily Amlodipine 5 mg tablet Discontinued 5 mg PO DAILY January 31, 2024 2:29pm June 12, 2024 1:48pm amoxicillin 500 mg oral tablet (4 sources) Penicillin-class Antibacterial Start: 12-19-2022 End: 12-31-2022 take 1 tablet by mouth three times daily Amoxicillin 500 mg tablet Discontinued 500 mg PO THREE TIMES A DAY December 19, 2022 12:00am December 31, 2022 3:32pm amoxicillin 875 mg / clavulanate 125 mg oral tablet (4 sources) Penicillin-class Antibacterial Start: 07-20-2022 End: 09-24-2022 Amoxicillin-Pot Clavulanate 875-125 mg tablet Discontinued 1 {tbl} PO TWICE A DAY July 20, 2022 12:00am September 24, 2022 2:47pm Start: 07-20-2022 End: 09-24-2022 take 1 tablet by mouth twice daily Amoxicillin-Pot Clavulanate Discontinued 1 TABLET PO TWICE A DAY July 19, 2022 11:00pm September 24, 2022 1:47pm benzonatate 100 mg oral capsule (11 sources) Non-narcotic Antitussive Start: 04-27-2024 End: 08-01-2024 Benzonatate 100 mg capsule Discontinued 100 mg PO 2 to 3 times per day as needed for cough April 27, 2024 1:00am August 01, 2024 10:56am Start: 04-01-2021 End: 04-24-2021 take 1 capsule by mouth three times daily as needed for cough Benzonatate 200 mg capsule Discontinued 200 mg PO THREE TIMES A DAY as needed for cough April 01, 2021 1:00am April 24, 2021 3:57pm busPIRone hydrochloride 7.5 mg oral tablet (20 sources) Start: 05-19-2024 End: 06-01-2024 take 1 tablet by mouth twice daily Buspirone 7.5 mg tablet Discontinued 7.5 mg PO TWICE A DAY May 19, 2024 1:00am June 01, 2024 7:03pm Start: 12-31-2022 End: 03-31-2023 take 1 tablet by mouth twice daily Buspirone 7.5 mg tablet Discontinued 7.5 mg PO TWICE A DAY December 31, 2022 3:32pm March 31, 2023 3:32pm Start: 06-24-2022 End: 12-31-2022 take 1 tablet by mouth three times daily Buspirone 7.5 mg tablet Discontinued 7.5 mg PO THREE TIMES A DAY 270 90 June 24, 2022 4:01pm December 31, 2022 3:33pm Start: 09-30-2021 End: 06-24-2022 take 1 tablet by mouth twice daily Buspirone 7.5 mg tablet Discontinued 7.5 mg PO TWICE A DAY 180 December 10, 2021 3:14pm December 29, 2021 3:55pm ciprofloxacin 3 mg/ml / dexamethasone 1 mg/ml otic suspension (8 sources) Corticosteroid, Quinolone Antimicrobial Start: 07-05-2020 End: 07-12-2020 Ciprofloxacin-Dexamethasone (Ciprodex) 0.3-0.1 % drops,suspension Discontinued 4 NMA OTIC TWICE A DAY 7.5 7 July 05, 2020 12:00am July 11, 2020 12:00am July 12, 2020 12:03am Start: 07-05-2020 End: 07-12-2020 Ciprofloxacin-Dexamethasone (Ciprodex) 0.3-0.1 % drops,suspension Discontinued 4 DRP OTIC TWICE A DAY 7.5 7 July 04, 2020 11:00pm July 11, 2020 11:03pm escitalopram 5 mg oral tablet (6 sources) Serotonin Reuptake Inhibitor Start: 11-26-2021 End: 12-10-2021 take 1 tablet by mouth once daily Escitalopram Oxalate (Lexapro) 5 mg tablet Discontinued 5 mg PO DAILY 30 November 26, 2021 12:00am December 10, 2021 4:47pm Fluticasone-Umeclidi n-Vilanter (3 sources) Anticholinergic, Corticosteroid, beta2-Adrenergic Agonist Start: 06-21-2024 End: 08-01-2024 Fluticasone-Umeclid in-Vilanter (Trelegy Ellipta) 100-62.5-25 mcg blister with device Discontinued 1 NMA INHALATION daily 60 June 21, 2024 1:00am August 01, 2024 12:14pm Start: 06-21-2024 Fluticasone-Um eclidin-Vilanter (Trelegy Ellipta) 100-62.5-25 mcg blister with device Active 1 NMA INHALATION daily 60 June 21, 2024 1:00am 30 actuat fluticasone furoate 0.1 mg/actuat / vilanterol 0.025 mg/actuat dry powder inhaler (3 sources) Corticosteroid, beta2-Adrenergic Agonist Start: 05-15-2024 End: 06-21-2024 Fluticasone Furoate-Vilanterol (Breo Ellipta) 100-25 mcg/dose blister with device Discontinued 1 NMA INHALATION Q24H 60 May 15, 2024 1:00am June 21, 2024 4:57pm guaiFENesin 400 mg oral tablet (8 sources) Start: 04-01-2021 End: 04-24-2021 take 1 tablet by mouth every four hours as needed for congestion Guaifenesin 400 mg tablet Discontinued 400 mg PO Q4H as needed for congestion April 01, 2021 1:00am April 24, 2021 3:57pm hydroCHLOROthiazide 12.5 mg oral capsule (8 sources) Thiazide Diuretic Start: 05-08-2014 End: 05-23-2020 take 1 capsule by mouth once daily Hydrochlorothiazide 12.5 MG capsule Discontinued 12.5 mg PO DAILY May 08, 2014 1:00am May 23, 2020 3:49pm hydroxychloroquine sulfate 200 mg oral tablet (20 sources) Antimalarial, Antirheumatic Agent Start: 05-23-2020 End: 06-03-2022 take 1 tablet by mouth twice daily Hydroxychloroquine (Plaquenil) 200 mg tablet Discontinued 200 mg PO TWICE A DAY March 24, 2022 11:24am June 03, 2022 10:00am ibuprofen 200 mg oral tablet (8 sources) Nonsteroidal Anti-inflammatory Drug Start: 05-08-2014 End: 05-23-2020 take 1 tablet by mouth every four hours as needed for pain Ibuprofen 200 MG tablet Discontinued 200 mg PO EVERY 4 HOURS NEEDED as needed for Pain May 08, 2014 1:00am May 23, 2020 3:29pm ketorolac tromethamine 10 mg oral tablet (20 sources) Nonsteroidal Anti-inflammatory Drug, Cyclooxygenase Inhibitor Start: 05-23-2020 End: 01-06-2021 take 1 tablet by mouth twice daily as needed for pain Ketorolac 10 mg tablet Discontinued 10 mg PO TWICE A DAY as needed for Pain 180 January 02, 2021 3:37pm January 06, 2021 8:48am Start: 05-23-2020 End: 05-23-2020 take 1 tablet by mouth three times daily as needed Ketorolac 10 mg tablet Discontinued 10 mg PO THREE TIMES A DAY as needed May 23, 2020 1:00am May 23, 2020 3:31pm Start: 05-08-2014 End: 05-23-2020 Ketorolac 10 MG tablet Disco ntinued 20 mg PO NEEDED as needed for Headache May 08, 2014 1:00am May 23, 2020 3:31pm Start: 05-08-2014 End: 05-23-2020 Ketorolac Discontinued 20 MG PO NEEDED May 08, 2014 12:00am May 23, 2020 2:31pm LORazepam 1 mg oral tablet (4 sources) Benzodiazepine Start: 06-24-2022 End: 12-19-2022 take 1 tablet by mouth once daily as needed for anxiety Lorazepam 1 mg tablet Discontinued 1 mg PO DAILY as needed for anxiety 7 June 24, 2022 1:00am December 19, 2022 9:57am meloxicam 15 mg oral tablet (16 sources) Nonsteroidal Anti-inflammatory Drug Start: 01-06-2021 End: 12-19-2022 take 1 tablet by mouth once daily as needed for pain Meloxicam 15 mg tablet Discontinued 15 mg PO DAILY as needed for pain 60 January 06, 2021 12:00am December 19, 2022 9:58am Start: 12-15-2019 End: 05-23-2020 take 1 tablet by mouth once daily Meloxicam (Mobic) 15 mg tablet Discontinued 15 mg PO DAILY December 15, 2019 12:00am May 23, 2020 3:31pm Do NOT take in conjunction with other NSAIDs including ketorolac. Tylenol is okay 24 hr methylphenidate hydrochloride 5 mg/ml extended release suspension (8 sources) Central Nervous System Stimulant Start: 05-23-2020 End: 05-23-2020 take 10 mg by mouth once daily, then take 5 mg by mouth every twenty-four hours Methylphenidate Hcl (Quillivant Xr) 5 mg/mL (25 mg/5 mL) suspension,ext rel 24hr,recon Discontinued 10 mg PO DAILY May 23, 2020 1:00am May 23, 2020 3:30pm methylPREDNISolone 4 mg oral tablet (8 sources) Corticosteroid Start: 12-15-2019 End: 05-23-2020 take 1 tablet by mouth once Methylprednisolone (Medrol (Wilfredo)) 4 mg tablets,dose pack Discontinued 0 PO per package directions December 15, 2019 12:00am May 23, 2020 3:30pm Take as directed nitrofurantoin, macrocrystals 25 mg / nitrofurantoin, monohydrate 75 mg oral capsule (3 sources) Nitrofuran Antibacterial Start: 05-28-2024 End: 06-04-2024 take 1 capsule by mouth every twelve hours at mealtime Nitrofurantoin Monohyd/M-Cryst (Macrobid) 100 mg capsule Discontinued 100 mg PO Q12H 14 May 28, 2024 1:00am June 03, 2024 1:00am June 04, 2024 1:11am must administer with a meal/food nystatin 100 unt/mg topical ointment (3 sources) Polyene Antifungal Start: 11-18-2023 End: 12-23-2023 Nystatin 100,000 unit/gram ointment Discontinued 1 NMA TOPICAL TWICE A DAY November 18, 2023 12:00am December 23, 2023 2:51pm phenazopyridine hydrochloride 100 mg oral tablet (3 sources) Start: 05-28-2024 End: 06-15-2024 take 1 tablet by mouth three times daily as needed for pain Phenazopyridine (Pyridium) 100 mg tablet Discontinued 100 mg PO THREE TIMES A DAY as needed for pain May 28, 2024 1:00am June 15, 2024 1:28pm potassium chloride 10 meq extended release oral tablet (8 sources) Start: 05-08-2014 End: 07-05-2020 take 1 tablet by mouth once daily Potassium Chloride 10 MEQ tablet extended release Discontinued 10 meq PO DAILY May 08, 2014 1:00am July 05, 2020 10:05am predniSONE 10 mg oral tablet (20 sources) Start: 05-29-2024 End: 06-15-2024 Prednisone 10 mg tablets,dose pack Discontinued 10 mg PO As Directed 48 May 29, 2024 1:00am June 15, 2024 1:28pm see taper instructions Start: 05-24-2024 End: 05-29-2024 take 2 tablets by mouth once daily Prednisone 20 mg tablet Discontinued 40 mg PO DAILY May 24, 2024 1:00am May 29, 2024 6:00pm Start: 05-19-2024 End: 05-24-2024 Prednisone 10 mg tablets,dos e pack Discontinued 0 PO per package directions May 19, 2024 1:00am May 24, 2024 3:52pm PO PER PKG DIR Start: 04-27-2024 End: 05-19-2024 take 2 tablets by mouth once daily Prednisone 20 mg tablet Discontinued 40 mg PO daily April 27, 2024 1:00am May 19, 2024 10:23am Start: 12-19-2022 End: 12-31-2022 take 3 tablets by mouth once daily Prednisone 20 mg tablet Discontinued 60 mg PO DAILY December 19, 2022 12:00am December 31, 2022 3:32pm Start: 12-19-2022 End: 12-31-2022 take 60 mg by mouth once daily Prednisone Discontinued 60 MG PO DAILY December 18, 2022 11:00pm December 31, 2022 2:32pm Start: 05-23-2020 End: 12-19-2022 take 1 tablet by mouth once daily as needed for arthritis Prednisone 10 mg tablet Discontinued 10 mg PO DAILY as needed for flares up rheumatoid arthritis May 23, 2020 1:00am December 19, 2022 9:58am promethazine hydrochloride 12.5 mg oral tablet (8 sources) Phenothiazine Start: 04-01-2021 End: 04-24-2021 take 1 tablet by mouth every six hours as needed for nausea and vomiting Promethazine 12.5 mg tablet Discontinued 12.5 mg PO EVERY 6 HOURS as needed for nausea and vomiting April 01, 2021 1:00am April 24, 2021 3:58pm sertraline 50 mg oral tablet (20 sources) Serotonin Reuptake Inhibitor Start: 12-10-2021 End: 06-12-2024 take 1 tablet by mouth once daily Sertraline 50 mg tablet Discontinued 50 mg PO DAILY January 31, 2024 2:29pm June 12, 2024 1:48pm SUMAtriptan 25 mg oral tablet (12 sources) Serotonin-1b and Serotonin-1d Receptor Agonist Start: 03-23-2022 End: 09-24-2022 take 1 tablet by mouth every two hours Sumatriptan Succinate (Imitrex) 25 mg tablet Discontinued 0 PO .COMPLEX March 24, 2022 11:24am September 24, 2022 3:01pm take 1 tab at onset of headache; if no relief may repeat 1 tab after at least 2 hrs; max = 4 tabs/24 hr PO ubrogepant 50 mg oral tablet (4 sources) Start: 09-24-2022 End: 09-28-2022 take 1 tablet by mouth once Ubrogepant (Ubrelvy) 50 mg tablet Discontinued 50 mg PO ONCE September 24, 2022 12:00am September 28, 2022 11:46am as a single dose; may repeat once in >=2 hours after first dose if needed z quil (8 sources) Start: 05-23-2020 End: 04-24-2021 z quil Discontinued PO May 23, 2020 3:28pm April 24, 2021 3:58pm Start: 05-23-2020 End: 04-24-2021 z quil Discontinued PO 2020 12:00am April 24, 2021 2:58pm Start: 05-23-2020 End: 04-24-2021 z quil Discontinued PO Febru amelia 2020 1:00am April 24, 2021 3:58pm Problems Active Problems Problem Classification Problem Date Documented Da te Episodic/Chronic Abdominal pain (3 sources) Left upper quadrant pain; Translations: [Left upper quadrant pain] 12-23-2023 Episodic Acute bronchitis (5 sources) Acute bronchitis; Translations: [Acute bronchitis, unspecified] 12-21-2022 Episodic Anxiety disorders (15 sources) Anxiety disorder, unspecified; Translations: [Anxiety state, unspecified] Chronic Asthma (4 sources) Asthma-chronic obstructive pulmonary disease overlap syndrome; Translations: [Asthma-chronic obstructive pulmonary disease overlap syndrome] 08-01-2024 Chronic Cardiac dysrhythmias (3 sources) Premature atrial contraction; Translations: [Atrial premature depolarization] 09-24-2023 Chronic Chronic kidney disease (8 sources) Chronic kidney disease stage 3; Translations: [Stage 3 chronic kidney disease] 05-23-2020 Chronic Chronic obstructive pulmonary disease and bronchiectasis (5 sources) Chronic obstructive lung disease; Translations: [Chronic obstructive pulmonary disease, unspecified] Onset: 09-22-2024 08-01-2024 Chronic Essential hypertension (20 sources) Hypertensive disorder; Translations: [Essential (primary) hypertension] Onset: 05-16-2024 Chronic Headache; including migraine (13 sources) Migraine; Translations: [Migraine, unspecified, not intractable, without status migrainosus] Chronic Headache; including migraine (8 sources) Frequent headache; Translations: [Frequent headaches] 05-23-2020 Episodic Malaise and fatigue (6 sources) Fatigue; Translations: [Other fatigue] 06-01-2024 Episodic Mycoses (3 sources) Dermal mycosis; 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, unspecified] 11-18-2023 Episodic Other and unspecified benign neoplasm (8 sources) Polyp of colon; Translations: [Polyp of colon] 08-27-2020 Episodic Other ear and sense organ disorders (4 sources) Otalgia, left ear; Translations: [Left ear pain] 07-20-2022 Episodic Other lower respiratory disease (4 sources) Cough; Translations: [Cough] 12-19-2022 Episodic Other lower respiratory disease (16 sources) Chronic cough; Translations: [Chronic cough] Onset: 05-25-2024 Episodic Other lower respiratory disease (8 sources) Dyspnea; Translations: [Dyspnea, unspecified] 05-27-2024 Episodic Other lower respiratory disease (6 sources) Hypoxia; Translations: [Hypoxemia] 05-27-2024 Episodic Other lower respiratory disease (4 sources) Solitary nodule of lung; Translations: [Solitary pulmonary nodule] 08-01-2024 Episodic Other lower respiratory disease (2 sources) Dyspnea, unspecified; Translations: [Dyspnea, unspecified] Onset: 05-25-2024 Episodic Other lower respiratory disease (2 sources) Hypoxemia; Translations: [Hypoxemia] Onset: 05-25-2024 Episodic Other nutritional; endocrine; and metabolic disorders (8 sources) Morbid obesity; Translations: [Morbid (severe) obesity due to excess calories] 04-24-2021 Chronic Other nutritional; endocrine; and metabolic disorders (2 sources) Morbid (severe) obesity due to excess calories; Translations: [Morbid obesity] Chronic Other screening for suspected conditions (not mental disorders or infectious disease) (10 sources) Patient encounter status; Translations: [Encounter for screening for malignant neoplasm of colon] Onset: 11-22-2023 08-02-2017 Episodic Other upper respiratory disease (8 sources) Seasonal allergy; Translations: [Other seasonal allergic rhinitis] 05-23-2020 Chronic Otitis media and related conditions (4 sources) Otitis; Translations: [Otitis media, unspecified, unspecified ear] 07-20-2022 Episodic Pneumonia (except that caused by tuberculosis or sexually transmitted disease) (5 sources) Pneumonia; Translations: [Pneumonia, unspecified organism] 12-21-2022 Episodic Residual codes; unclassified (2 sources) Obstructive sleep apnea syndrome; Translations: [Obstructive sleep apnea (adult) (pediatric)] 08-23-2024 Chronic Residual codes; unclassified (2 sources) Obstructive sleep apnea (adult) (pediatric); Translations: [Obstructive sleep apnea (adult) (pediatric)] Onset: 08-23-2024 Chronic Residual codes; unclassified (8 sources) History of clinical finding in subject; Translations: [Personal history of other specified conditions] 05-23-2020 Episodic Rheumatoid arthritis and related disease (17 sources) Rheumatoid arthritis; Translations: [Rheumatoid arthritis, unspecified] Chronic Screening and history of mental health and substance abuse codes (12 sources) Tobacco smoking behavior - finding; Translations: [Personal history of nicotine dependence] Episodic Thyroid disorders (8 sources) Thyroid nodule; Translations: [Nontoxic single thyroid nodule] 10-03-2020 Chronic Unclassified (3 sources) J40 - Bronchitis, not specified as acute or chronic,R05.3 - Chronic cough Unclassified (2 sources) Z00.00 - Encounter for general adult medical examination without abnormal findings Urinary tract infections (3 sources) Urinary tract infectious disease; Translations: [Urinary tract infection, site not specified] 05-28-2024 Episodic Past or Other Problems Problem Classification Problem Date Documented Da te Episodic/Chronic Chronic obstructive pulmonary disease and bronchiectasis (19 sources) Bronchitis; Translations: [Bronchitis, not specified as acute or chronic] Onset: 05-25-2024 Episodic Genitourinary symptoms and ill-defined conditions (2 sources) Unspecified abnormal findings in urine; Translations: [Frequency of micturition] Onset: 05-28-2024 Episodic Influenza (16 sources) Influenza due to Influenza A virus; Translations: [Influenza due to other identified influenza virus with other respiratory manifestations] Onset: 05-25-2024 05-27-2024 Episodic Unclassified (6 sources) history of right elbow fracture 11-05-2021 Results Test Name Value Interpretation Reference Range Facility 6 Minute Walk Teston 025 6 Minute Walk Test y [facility] [address] [place] [address] MR#: [id number] Acct: [id number] Name: HONG KHAN Rep #: [id number] : 1965 58 From: Bryce Lo DO Referring Dr: Zeinab Monique SUPERVISOR DEHYDROGENATION-C Status: REG CLI Location: PSN Date: Sex: F C PSN 6 Minute Walk Test 6 Minute Walk Test 6 Minute Walk Test: 6 Minute Walk Test PSN:6-Minute Walk Test Start: 09/05/24 12:53 Freq: Status: Active Protocol: RESP.6MINW Document 09/05/24 12:53 SFENTON (Rec: 09/05/24 12:55 SFENTON [id number]) 6 Minute Walk Test Date Performed 09/05/24 Time Performed 12:40 Height 5 ft 6 in Weight: 300 lb Weight in Pounds 300.[address]: Zeinab Monique Assistive device None used: Pre-test Oxygen Delivery Room Air Method Pulse Ox (%) 94 Pulse Rate (60-100 90 beats/min) Dyspnea Mohsen Scale ( 0 0-10) Exertion Mohsen Scale 6 (6-20) 1st minute Oxygen Delivery Room Air Method Pulse Ox (%) 92 Pulse Rate (60-100 106 H beats/min) 2nd minute Oxygen Delivery Room Air Method Pulse Ox (%) 91 Pulse Rate (60-100 106 H beats/min) 3rd minute Oxygen Delivery Room Air Method Pulse Ox (%) 91 Pulse Rate (60-100 105 H beats/min) 4th minute Oxygen Delivery Room Air Method Pulse Ox (%) 91 Pulse Rate (60-100 115 H beats/min) 5th minute Oxygen Delivery Room Air Method Pulse Ox (%) 92 Pulse Rate (60-100 110 H beats/min) 6th minute Oxygen Delivery Room Air Method Pulse Ox (%) 91 Pulse Rate (60-100 117 H beats/min) Dyspnea Mohsen Scale ( 3 0-10) Exertion Mohsen Scale 12 (6-20) Post-test Oxygen Delivery Room Air Method Pulse Ox (%) 96 Pulse Rate (60-100 97 beats/min) Full Laps Walked 18 Partial Lap, Number 37 of Tiles Walked Total Distance 1099 Walked (ft) Interpretation Interpretation: The patient ambulated 1099 feet over the course of 6 minutes beginning on room air without assistive devices. Pretesting oxygen saturation was noted to be 94% on room air. With ambulation, the jose oxygen saturation was 91%. There was no significant exertional oxygen desaturation. Recommendations Recommendations: There is no indication for the use of supplemental oxygen at this time. 09/11/24719 Date Bryce Lo DO CC: Date Dictated: 09/11/24718 Date Transcribed: 09/11/24718 Grain Grader: Dr. Bryce Lo, Signed Normal [facility] Office Visit Reporton 2024 Office Visit Report [facility] [address] [place] [address] OFFICE VISIT Date of Service: 05/19/24 MR#: [id number] Acct: [id number] Patient: HONG KHAN Rep #: [id number] : 1965 Provider: SHERRY NURSE Age/Sex: 58/F Location: [facility] [place] Status: Signed Intake Vital Signs 04/27/24 14:52 05/19/24 09:30 Height 5 ft 7 in Pulse Oximetry (%) 79 Oxygen Delivery Method room air Intake Visit Reasons: PULSE OX CHECK Chief Complaint: Follow-up chronic conditions Allergies hydrocodone bitartrate (From Vicodin) Allergy (Verified 08/23/24 14:46) Rash erythromycin base Adverse Reaction (Verified 08/23/24 14:46) Vomiting Penicillins (PCN) Adverse Reaction (Verified 08/23/24 14:46) Upset Stomach Nurse's Note: Patient came in to have pulse ox checked and this nurse completed task with hers and ours. patient was bouncing between 79-80 on both readers at this time and was advised to visit [facility] at this time. and patient agreed and they left to go to [facility] Assessment and Plan Assessment and Plan Medications: Discontinued prednisone Discontinued Reason: Discontinued by PCP/other physicians 40 mg (2 x 20 mg) PO QDAY 10 tabs 0RF fluticasone furoate-vilanterol 100-25 mcg/dose Discontinued Reason: Discontinued by PCP/other physicians 1 inh inhalation Q24H 60 ea 0RF breathing prednisone Discontinued Reason: Discontinued by PCP/other physicians 40 mg (2 x 20 mg) PO DAILY 10 tabs 0RF 08/30/242217 Date Nicky Covarrubias MD Cosigner Signature: Date (if applicable) CC: Normal [facility] Internal Medicine Office Vis dickson 08-23-2024 Internal Medicine Office Visit [facility] [address] [place] [id number] OFFICE VISIT Date of Service: 08/23/24 MR#: [id number] Acct: [id number] Name: HONG KHAN Rep #: [id number] : 1965 Provider: Dr. Nicky moore MD Age/Sex: 58/F Location: [facility] [place] Status: Signed Intake Vital Signs 04/27/24 14:52 08/01/24 08:37 08/23/24 14:49 Height 5 ft 7 in 5 ft 6 in 5 ft 6 in Weight: 299 lb 8 oz BMI 48.3 BP 130/70 H Blood Pressure Location Lt brachial Position Sitting Respiration 16 Pulse 115 H Pulse Source Monitor Temp 96.4 F L Temp Source Temporal Pulse Oximetry (%) 93 Oxygen Delivery Method room air Intake Visit Reasons: 4 M FU Chief Complaint: Follow-up chronic conditions Sightseeing Guide Required: No Accompanied by: Self Is patient in pain?: No Allergies hydrocodone bitartrate (From Vicodin) Allergy (Verified 08/23/24 14:46) Rash erythromycin base Adverse Reaction (Verified 08/23/24 14:46) Vomiting Penicillins (PCN) Adverse Reaction (Verified 08/23/24 14:46) Upset Stomach Medications ???Medication ???Instructions ???Recorded ???Confirmed ???Type loratadine 10 mg tablet (Claritin) 10 mg PO DAILY congestion 08/23/24 History melatonin 5 mg capsule 5 mg PO QHS sleep 05/23/20 5 History hydroxychloroquine 200 mg tablet 200 mg PO BID #60 tabs 06/03/22 Rx (Plaquenil) folic acid 1 mg tablet 1 mg PO BID supplement #90 tabs 08/23/24 Rx methotrexate sodium 2.5 mg tablet 20 mg PO QWEEK RA 09/24/22 History rizatriptan 10 mg tablet 10 mg PO ONCE PRN migraine headach e 12/23/23 08/23/24 History amlodipine 5 mg tablet 5 mg PO DAILY blood pressure #90 0 06/12/24 08/23/24 Rx TABLETS sertraline 50 mg tablet 50 mg PO DAILY mental health #90 0 06/12/24 08/23/24 Rx TABLETS albuterol sulfate 90 mcg/actuation 2 puff inhalation Q6H PRN 08/23/24 Rx aerosol inhaler shortness of breath or wheezing #8.5 grams fluticasone fur. 200 mcg-umeclid 1 inh inhalation Q24H #60 ea 08/0108/23/24 Rx 62.5 mcg-vilant 25 mcg inhalat.powder (Trelegy Ellipta) Have you fallen in the past year?: No PFSH Medical History (Updated 08/23/24 @ 15:[address] Nicky Covarrubias MD) MARIELLA (obstructive sleep apnea) Fatigue Chronic cough Bronchitis Dyspnea Left upper quadrant pain PAC (premature atrial contraction) Knee bursitis Preventative health care Otitis Left ear pain Generalized anxiety disorder Morbid obesity History of smoking 30 or more pack years Health care maintenance Thyroid nodule Wears glasses Post-menopausal Sleep apnea Hypertension history of right elbow fracture Migraines History of pneumonia Frequent headaches Rheumatoid arthritis History of breast lump Seasonal allergies Hypertension Surgical History Hx of colonoscopy History of endometrial ablation History of carpal tunnel surgery History of breast biopsy S/P thyroid biopsy Family History Mother Anxiety and depression Arthritis Father Hypertension Grandmother Osteoporosis Social History household members: spouse housing: house current occupational status: employed 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 No acute concerns at this time. Currently on Trelegy and she states that she is breathing a lot better. Still occasional wheezing before months but doing much better than she had done in recent months. Now semiretired. History of hypertension, blood pressure today at 130/70 down from her last visit. Heart rate initially elevated but improved with rest. No chest pain, palpitation, syncopal or near syncopal episodes reported. Other chronic medical conditions are generally stable. Not up-to-date with her age-appropriate screening. ROS Const Constitutional: No body ache, excessive sweating, fatigue, fever(s), frequent falls, headache(s), snoring, weakness, weight change, sleep problems or change in appetite Eyes Eyes: No blurry vision, change in vision, floaters, visual disturbances, eye pain or Light sensitivity ENT ENT: No abnormal hearing, ear or mastoid pain, tinnitus, balance problems, nosebleed/epist (more content not included)... Normal [facility] Absolute lymphocyte countOrd ered By: MARGIE Monique on 08-09-2024 Lymphocytes Auto (Unsp spec) [#/Vol] 1.43 10*3/uL 0.83-4.51 [facility] Absolute neutrophil countOrd ered By: MARGIE Monique on 08-09-2024 Neutrophils (Bld) [#/Vol] 4.0 10*3/uL 2.0-7.7 [facility] Automated lymphocyte count a s percentage of total leukocytesOrdered By: MARGIE Monique on 08-09-2024 Lymphocytes/100 WBC Auto (Unsp spec) 23.5 % 19-41 [facility] Basophil percentageOrdered B y: MARGIE Monique on 08-09-2024 Basophils/100 WBC (Bld) 0.5 % 0-1 [facility] CBC W/Diff, Automatedon 07-19 Absolute Lymph 1.43 X10 3/uL Normal 0.83-4.51 [facility] Comment on above: Performed By: #### L 500.2500, L100.0100 #### [facility] [address] [place], [address] Absolute Neut 4.0 X10 3/uL Normal 2.0-7.7 [facility] Comment on above: Performed By: #### L 500.2500, L100.0100 #### [facility] [address] [place], [address] Basophils/100 WBC (Bld) 0.5 % Normal 0-1 [facility] Comment on above: Performed By: #### L 500.2500, L100.0100 #### [facility] [address] [place], [address] Eosinophils/100 WBC (Bld) 1.6 % Normal 0-5 [facility] Comment on above: Performed By: #### L 500.2500, L100.0100 #### [facility] [address] [place], [address] Erythrocyte distribution width (RBC) [Ratio] 18.0 % High 11.6-14.6 [facility] Comment on above: Performed By: #### L 500.2500, L100.0100 #### [facility] [address] [place], [address] Hematocrit (Bld) [Volume fraction] 41.0 % Normal 37-47 [facility] Comment on above: Performed By: #### L 500.2500, L100.0100 #### [facility] [address] [place], [address] Hemoglobin (Bld) [Mass/Vol] 12.3 g/dL Normal 12.0-15.0 [facility] Comment on above: Performed By: #### L 500.2500, L100.0100 #### [facility] [address] [place], [address] IG% 0.300 Normal 0.0-0.9 [facility] Comment on above: Result Comment: IG% - Immature Granulocytes (promyelocytes, myelocytes and metamyelocytes) > 1% indicates that a LEFT SHIFT is Present. Performed By: #### L 500.2500, L100.0100 #### [facility] [address] [place], [address] Lymphocytes/100 WBC (Bld) 23.5 % Normal 19-41 [facility] Comment on above: Performed By: #### L 500.2500, L100.0100 #### [facility] [address] [place], [address] MCH (RBC) [Entitic mass] 27.7 pg Normal 27.0-32.0 [facility] Comment on above: Performed By: #### L 500.2500, L100.0100 #### [facility] [address] [place], [address] MCHC (RBC) [Mass/Vol] 30.0 g/dL Low 32-36 [facility] Comment on above: Performed By: #### L 500.2500, L100.0100 #### [facility] [address] [place], [address] MCV (RBC) [Entitic vol] 92.3 fL Normal 81-99 [facility] Comment on above: Performed By: #### L 500.2500, L100.0100 #### [facility] [address] [place], [address] Monocytes/100 WBC (Bld) 7.7 % Normal 0-10 [facility] Comment on above: Performed By: #### L 500.2500, L100.0100 #### [facility] [address] [place], [address] Neutrophils/100 WBC (Bld) 66.4 % Normal 47-70 [facility] Comment on above: Performed By: #### L 500.2500, L100.0100 #### [facility] [address] [place], [address] Nucleated RBC (Bld) [#/Vol] 0 10*3/uL Normal 0-5 [facility] Comment on above: Performed By: #### L 500.2500, L100.0100 #### [facility] [address] [place], [address] Platelet mean volume (Bld) [Entitic vol] 9.8 fL Normal 6.2-12.0 [facility] Comment on above: Performed By: #### L 500.2500, L100.0100 #### [facility] [address] [place], [address] Platelets (Bld) [#/Vol] 324 10*3/uL Normal 150-450 [facility] Comment on above: Performed By: #### L 500.2500, L100.0100 #### [facility] [address] [place], [address] RBC (Bld) [#/Vol] 4.44 10*6/uL Normal 4.2-5.4 [facility] Comment on above: Performed By: #### L 500.2500, L100.0100 #### [facility] [address] [place], [address] RDW SD 61.1 fl High 35.1-43.9 [facility] Comment on above: Performed By: #### L 500.2500, L100.0100 #### [facility] [address] [place], [address] WBC (Bld) [#/Vol] 6.1 10*3/uL Normal 4.4-11.0 [facility] Comment on above: Performed By: #### L 500.2500, L100.0100 #### [facility] [address] [place], [address] Eosinophil percentageOrdered By: MARGIE Monique on 08-09-2024 Eosinophils/100 WBC (Bld) 1.6 % 0-5 [facility] Erythrocyte distribution wid th (RBC) [Ratio]Ordered By: MARGIE Monique on 08-09-2024 Erythrocyte distribution width (RBC) [Entitic vol] 61.1 fL High 35.1-43.9 [facility] Erythrocyte distribution wid th ratioOrdered By: MARGIE Monique on 08-09-2024 Erythrocyte distribution width (RBC) [Ratio] 18.0 % High 11.6-14.6 [facility] Erythrocyte distribution wid th standard deviationOrdered By: MARGIE Monique on 08-09-2024 Erythrocyte distribution width (RBC) [Ratio] 61.1 fl High 35.1-43.9 [facility] Hematocrit Auto (Bld) [Volum e fraction]Ordered By: MARGIE Monique on 08-09-2024 Hematocrit (Bld) [Volume fraction] 41.0 % 37-47 [facility] Hemoglobin measurementOrdere d By: MARGIE Monique on 08-09-2024 Hemoglobin (Bld) [Mass/Vol] 12.3 g/dL 12.0-15.0 [facility] Immature granulocytes/100 WB C Auto (Bld)Ordered By: MARGIE Monique on 08-09-2024 Immature granulocytes/100 WBC (Bld) 0.300 % 0.0-0.9 [facility] Comment on above: IG% - Immature Granu locytes (promyelocytes, myelocytes and metamyelocytes) > 1% indicates that a LEFT SHIFT is Present. L503.7505on 08-09-2024 Natriuretic peptide B (Bld) [Mass/Vol] 354 pg/mL Normal <=900 [facility] Comment on above: Result Comment: Hear t Failure Unlikely: < 300 pg/mL Heart Failure Likely < 50 Years: > 450 pg/mL 50-75 Years: > 900 pg/mL >75 Years: > 1800 pg/mL Performed By: #### L 100.0100, L500.2500 #### [facility] [address] [place], [address] Lymphocytes Auto (Unsp spec) [#/Vol]Ordered By: MARGIE Monique on 08-09-2024 Lymphocytes (Bld) [#/Vol] 1.43 10*3/uL 0.83-4.51 [facility] Lymphocytes/100 WBC Auto (Un sp spec)Ordered By: MARGIE Monique on 08-09-2024 Lymphocytes/100 WBC (Bld) 23.5 % 19-41 [facility] MCV (mean corpuscular volume ) determinationOrdered By: MARGIE Monique on 08-09-2024 MCV (RBC) [Entitic vol] 92.3 fL 81-99 [facility] Mean corpuscular hemoglobin (MCH) determinationOrdered By: MARGIE Monique on 08-09-2024 MCH (RBC) [Entitic mass] 27.7 pg 27.0-32.0 [facility] Mean corpuscular hemoglobin concentration (MCHC) determinationOrdered By: MARGIE Monique on 08-09-2024 MCHC (RBC) [Mass/Vol] 30.0 g/dL Low 32-36 [facility] Mean platelet volume determi nationOrdered By: MARGIE Monique on 08-09-2024 Platelet mean volume (Bld) [Entitic vol] 9.8 fL 6.2-12.0 [facility] Monocyte percentageOrdered B y: MARGIE Monique on 08-09-2024 Monocytes/100 WBC (Bld) 7.7 % 0-10 [facility] Natriuretic peptide.B prohor zach N-Terminal [Mass/Vol]Ordered By: Nicky Covarrubias on 08-09-2024 Natriuretic peptide B (Bld) [Mass/Vol] 354 pg/mL <900 [facility] Comment on above: Heart Failure Unlike ly: < 300 pg/mLHeart Failure Likely< 50 Years: > 450 pg/mL50-75 Years: > 900 pg/mL>75 Years: > 1800 pg/mL Natriuretic peptide.B prohor zach N-Terminal [Mass/volume] in Serum or PlasmaOrdered By: Nicky Covarrubias on 08-09-2024 Natriuretic peptide.B prohormone N-Terminal [Mass/Vol] 354 pg/mL <900 [facility] Comment on above: Heart Failure Unlike ly: < 300 pg/mLHeart Failure Likely< 50 Years: > 450 pg/mL50-75 Years: > 900 pg/mL>75 Years: > 1800 pg/mL Neutrophil percentageOrdered By: MARGIE Monique on 08-09-2024 Neutrophils/100 WBC (Bld) 66.4 % 47-70 [facility] Nucleated red blood cell per centageOrdered By: MARGIE Monique on 08-09-2024 Nucleated RBC/100 WBC (Bld) [Ratio] 0 % 0-5 [facility] Platelet countOrdered By: MARGIE Monique on 08-09-2024 Platelets (Bld) [#/Vol] 324 10*3/uL 150-450 [facility] RBC Auto (Bld) [#/Vol]Ordere d By: MARGIE Monique on 08-09-2024 RBC (Bld) [#/Vol] 4.44 10*6/uL 4.2-5.4 [facility] White blood cell (WBC) count Ordered By: MARGIE Monique on 08-09-2024 WBC (Bld) [#/Vol] 6.1 10*3/uL 4.4-11.0 [facility] Pulmonary Visit Reporton Pulmonary Visit Report [facility] [address] [place] [address] OFFICE VISIT Date of Service: 08/01/24 MR#: [id number] Acct: [id number] Name: HONG KHAN Rep #: [id number] : 1965 Provider: Zeinab Monique NP Age/Sex: 58/F Location: [facility] [place] Status: Signed Assessment and Plan Assessment and Plan (1) Asthma-COPD overlap syndrome: Status: Chronic Plan: Today have discussed the findings of the PFT with the patient. I have a working diagnosis of asthma COPD overlap syndrome due to the significant reversibility seen with use of beta agonist on the PFT. Disproportionate severe large airway obstructive ventilatory defect with a moderate reduction in diffusion capacity. I do believe that the reduction in diffusion capacity is likely from her history of smoking which points to the COPD diagnosis. I have recommended advancing her regimen to Trelegy 200 dosing and stopping the 100 dosing to gain more control of residual symptoms and fully treat asthma as well as COPD. NIOX is no elevated today, no oral prednisone is warranted. I recommend a 6MWT to evaluate for exertioinal hypoxemia due to significant smoking history. (2) Chronic cough: Status: Chronic Plan: Await response to increasing ICS dosing. I believe that part of the remainder of the cough is due to suboptimal therapy and the need to increase ICS dosage. But the differential does include suboptimal control of allergy symptoms. Singulair may be helpful on follow up if PND is active then. I have recommended a CBC with differential to evaluate for prepherial eosinophilia. (3) Solitary pulmonary nodule: Status: Acute Plan: Per Fleischner criteria I recommend a noncontrasted chest CT in 3 months which will be a 6-month interval from the CTA for the 7 mm right lower lobe nodule due to the patient being high risk status with history of smoking. She is encouraged to maintain a non-smoker status. Orders: Orders NIOX Today R05.3 - Chronic cough Simple Pulmonary Exercise Test 09/05/24 J44.9 - Chronic obstructive pulmonary disease, unspecified CBC W/Diff, Automated Today R06.02 - Shortness of breath Chest without Contrast 3 Months R91.1 - Solitary pulmonary nodule Medications: New fluticasone-umeclidin- vilanter 200-62.5-25 mcg (Trelegy Ellipta) 1 inh inhalation Q24H 60 ea 5RF Discontinued fluticasone-umeclidin- vilanter 100-62.5-25 mcg (Trelegy Ellipta) Discontinued Reason: Order Changed 1 inh inhalation QDAY 60 ea 3RF Plan Details Follow Up: 3-4 months (LMR) HPI HPI Comments Details: Patient is here today for the evaluation of chronic cough. She is a 58-year-old female and presents on room air. She is ambulatory. She indicates that she had influenza A and was hospitalized for 5 days earlier this winter. This is her second lifetime hospitalization for respiratory illness as she does report that she had pneumonia in the past and was hospitalized many years ago. The patient reports that with hospitalization for influenza A she had utilized oral prednisone up until 2 weeks of the pulmonary function test that she completed. The patient reports that her PCP has diagnosed her with COPD and has started her on Trelegy. She indicates this has changed my life . She hasn't been sick for a month which is good for me. With using triple therapy she has noticed less coughing that is not as intense. In general, she is feeling better, not as exhausted as she had felt before using Trelegy. Prior to using Trelegy she was using albuterol 4-5 times per week. Since beginning Trelegy she has not required the use of albuterol. She denies history of asthma or family history of asthma. She denies active acid reflux. She denies allergies but takes Claritin year round to help with post nasal drainage which will provoke cough. She does have a history of rheumatoid arthritis and is using methotrexate for the last 3 to 4 years. She reports that this has controlled her rheumatoid. She does indicate that she is a former smoker, she quit 10 years ago. She has a [id number] smoking history. She is utilizing supplemental oxygen at night at 2 L/min. She reports symptoms of wheeze on occasion, coughing on occasion that is occasionally productive with white to yellow sputum. When she is ill she will have more cough. She also notices more cough with laughing and talking. She denies chest pain and chest tightness. She does have shortness of breath with laughing, talking, exertion. She denies fever, chills, body aches. She has an albuterol inhaler which she will use on occasion. She reports an average use of albuterol 4-5 times per week previously, now since Trelegy she hasn't needed this. Documentation reviewed with patient today includes: PFT from June 28, 2024 which shows partially reversible severe large airwa (more content not included)... Normal [facility] Internal Medicine Office Vis iton 06-15-2024 Internal Medicine Office Visit [facility] [address] [place] [address] OFFICE VISIT Date of Service: 06/15/24 MR#: [id number] Acct: [id number] Name: HONG KHAN Rep #: [id number] : 1965 Provider: SHARONA Jara Age/Sex: 58/F Location: [facility] Status: Signed Intake Vital Signs 06/01/24 18:07 06/15/24 12:28 Height 5 ft 6 in 5 ft 6 in Weight: 289 lb 289 lb BMI 46.6 46.6 BP 140/88 H 142/70 H Blood Pressure Location Rt brachial Lt brachial Position Sitting Sitting Respiration 18 25 H Pulse 102 H 114 H Pulse Source Monitor Monitor Temp 98.9 F 97.8 F Temp Source Temporal Temporal Pulse Oximetry (%) 94 98 Oxygen Delivery Method room air room air Intake Visit Reasons: ACUTE [address] COVARRUBIAS Chief Complaint: ACUTE [address] COVARRUBIAS Is patient in pain?: No Allergies hydrocodone bitartrate (From Vicodin) Allergy (Verified 06/15/24 12:27) Rash erythromycin base Adverse Reaction (Verified 06/15/24 12:27) Vomiting Penicillins (PCN) Adverse Reaction (Verified 06/15/24 12:27) Upset Stomach Medications ???Medication ???Instructions ???Recorded ???Confirmed ???Type loratadine 10 mg tablet (Claritin) 10 mg PO DAILY congestion 06/15/24 History melatonin 5 mg capsule 5 mg PO QHS sleep 05/23/20 5 History hydroxychloroquine 200 mg tablet 200 mg PO BID #60 tabs 06/03/22 Rx (Plaquenil) folic acid 1 mg tablet 1 mg PO BID supplement #90 tabs 06/15/24 Rx methotrexate sodium 2.5 mg tablet 20 mg PO QWEEK RA 09/24/22 History albuterol sulfate 90 mcg/actuation 2 puff inhalation Q6H PRN 06/15/24 Rx aerosol inhaler shortness of breath or wheezing #8.5 grams rizatriptan 10 mg tablet 10 mg PO ONCE PRN migraine headach e 12/23/23 06/15/24 History benzonatate 100 mg capsule 100 mg PO BID-TID PRN cough #90 06/15/24 Rx caps fluticasone furoate 100 1 inh inhalation Q24H breathing 06/15/24 Rx mcg-vilanterol 25 mcg/dose #60 ea inhalation powder (Breo Ellipta) amlodipine 5 mg tablet 5 mg PO DAILY blood pressure #90 0 06/12/24 06/15/24 Rx TABLETS sertraline 50 mg tablet 50 mg PO DAILY mental health #90 0 06/12/24 06/15/24 Rx TABLETS Have you fallen in the past year?: No PFSH Medical History Fatigue Chronic cough Bronchitis Dyspnea Left upper quadrant pain PAC (premature atrial contraction) Knee bursitis Preventative health care Otitis Left ear pain Generalized anxiety disorder Morbid obesity History of smoking 30 or more pack years Health care maintenance Thyroid nodule Wears glasses Post-menopausal Sleep apnea Hypertension history of right elbow fracture Migraines History of pneumonia Frequent headaches Rheumatoid arthritis History of breast lump Seasonal allergies Hypertension Surgical History Hx of colonoscopy History of endometrial ablation History of carpal tunnel surgery History of breast biopsy S/P thyroid biopsy Family History Mother Anxiety and depression Arthritis Father Hypertension Grandmother Osteoporosis Social History household members: spouse housing: house current occupational status: employed 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 Patient was diagnosed with influenza back at the very end of April / early May. Since then she has continued to have some coughing and shortness of breath. She was placed on oral steroids and then inhalers. She states that the past 2 weeks she has definitely seen improvement. She states despite the improvement that she still gets some SOB with activity and if she is talking a lot for if she is moyer ghing. She is hardly coughing at this time stating just every once in while. She is monitoring her pulse ox regularly. She states that typically she runs between 93 and 95 during at the same time sometimes at night she can be down to 92 or 91. Patient is taking her Breo as directed. She uses her albuterol 4-5 times per week She does have pulmonary appt scheduled She also has PFT scheduled in 2 weeks ROS Const Constitut (more content not included)... Normal [facility] Internal Medicine Office Vis dickson 06-01-2024 Internal Medicine Office Visit [facility] [address] [place] [address] [place] [address] OFFICE VISIT Date of Service: 06/01/24 MR#: [id number] Acct: [id number] Name: HONG KHAN Rep #: [id number] : 1965 Provider: Dr. Nicky moore MD Age/Sex: 58/F Location: [facility] Status: Signed Intake Vital Signs 05/20/24 13:31 06/01/24 18:07 Height 5 ft 6 in 5 ft 6 in Weight: 289 lb BMI 46.6 BP 140/88 H Blood Pressure Location Rt brachial Position Sitting Respiration 18 Pulse 102 H Pulse Source Monitor Temp 98.9 F Temp Source Temporal Pulse Oximetry (%) 94 Oxygen Delivery Method room air Intake Visit Reasons: [facility] FU Chief Complaint: [facility] FU Is patient in pain?: No Allergies hydrocodone bitartrate (From Vicodin) Allergy (Verified 06/01/24 18:02) Rash erythromycin base Adverse Reaction (Verified 06/01/24 18:02) Vomiting Penicillins (PCN) Adverse Reaction (Verified 06/01/24 18:02) Upset Stomach Medications ???Medication ???Instructions ???Recorded ???Confirmed ???Type loratadine 10 mg tablet (Claritin) 10 mg PO DAILY congestion 06/01/24 History melatonin 5 mg capsule 5 mg PO QHS sleep 05/23/20 5 History hydroxychloroquine 200 mg tablet 200 mg PO BID #60 tabs 06/03/22 Rx (Plaquenil) folic acid 1 mg tablet 1 mg PO BID supplement #90 tabs 06/01/24 Rx methotrexate sodium 2.5 mg tablet 20 mg PO QWEEK RA 09/24/22 History albuterol sulfate 90 mcg/actuation 2 puff inhalation Q6H PRN 06/01/24 Rx aerosol inhaler shortness of breath or wheezing #8.5 grams rizatriptan 10 mg tablet 10 mg PO ONCE PRN migraine headach e 12/23/23 06/01/24 History amlodipine 5 mg tablet 5 mg PO DAILY blood pressure #90 1 06/01/24 Rx TABLETS sertraline 50 mg tablet 50 mg PO DAILY mental health #90 1 06/01/24 Rx TABLETS benzonatate 100 mg capsule 100 mg PO BID-TID PRN cough #90 06/01/24 Rx caps fluticasone furoate 100 1 inh inhalation Q24H breathing 06/01/24 Rx mcg-vilanterol 25 mcg/dose #60 ea inhalation powder (Breo Ellipta) nitrofurantoin 100 mg PO Q12H 7 days #14 caps 01/1106/01/24 Rx monohydrate/macrocryst als 100 mg capsule (Macrobid) phenazopyridine 100 mg tablet 100 mg PO TID PRN pain #7 tabs 01/1106/01/24 Rx (Pyridium) prednisone 10 mg tablets in a dose 10 mg PO DIRECTED #48 tabs 06/01/24 Rx pack PFSH Medical History (Updated 06/01/24 @ 18:[address] Nicky Covarrubias MD) Fatigue Chronic cough Bronchitis Dyspnea Left upper quadrant pain PAC (premature atrial contraction) Knee bursitis Preventative health care Otitis Left ear pain Generalized anxiety disorder Morbid obesity History of smoking 30 or more pack years Health care maintenance Thyroid nodule Wears glasses Post-menopausal Sleep apnea Hypertension history of right elbow fracture Migraines History of pneumonia Frequent headaches Rheumatoid arthritis History of breast lump Seasonal allergies Hypertension Surgical History Hx of colonoscopy History of endometrial ablation History of carpal tunnel surgery History of breast biopsy S/P thyroid biopsy Family History Mother Anxiety and depression Arthritis Father Hypertension Grandmother Osteoporosis Social History household members: spouse housing: house current occupational status: employed 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 Presented to the hospital due to worsening shortness of breath. Diagnosed and managed for hypoxia due to influenza A. Had a prolonged hospital stay. Prior to discharge, had a walk test and did not require oxygen however, she states that she has been monitoring her numbers closely and in the evenings, pulse ox drops, ranging from 88 to 90%. Shortness of breath is slowly improving but nowhere near her baseline. Since her hospital discharge, course of prednisone has been extended. A lung function test was ordered however, this is yet to be done due to her prolonged illness and current use of steroids. No recorded fever but she reports significant fatigue. Has been using only albuterol as need (more content not included)... Normal [facility] Urine Cultureon 05-31-2024 URC Presumptive E. coli Belva Count 25,000-50,000 Presumptive E. coli: REACTION Ampicillin Islt RENE >=32 Ampicillin+Sulbac Islt RENE 16 I Cefepime Islt RENE <=0.12 S cefTRIAXone Islt RENE <=0.25 S Ciprofloxacin Islt RENE <=0.06 S B-Lactamase Extended Susc Islt NEG Gentamicin Islt RENE <=1 S levoFLOXacin Islt RENE <=0.12 S Meropenem Islt RENE <=0.25 S Nitrofurantoin Islt RENE <=16 S Pip+Tazo Islt RENE <=4 S TMP SMX Islt RENE <=20 S Normal [facility] Comment on above: Performed By: #### L 500.2500, L100.0100 #### [facility] [address] [place], [address] Basic Metabolic Profile (BMP )on 05-30-2024 BUN Normal 7-18 [facility] Comment on above: Result Comment: Canc elled via OM: Order cancelled - Patient discharged Performed By: #### L 100.0100, L500.2500 #### [facility] [address] [place], [address] BUN/CRE Normal 10-20 [facility] Comment on above: Result Comment: Canc elled via OM: Order cancelled - Patient discharged Performed By: #### L 100.0100, L500.2500 #### [facility] [address] [place], [address] CA,Total Normal 8.5-10.1 [facility] Comment on above: Result Comment: Canc elled via OM: Order cancelled - Patient discharged Performed By: #### L 100.0100, L500.2500 #### [facility] [address] [place], [address] CL Normal 98-107 [facility] Comment on above: Result Comment: Canc elled via OM: Order cancelled - Patient discharged Performed By: #### L 100.0100, L500.2500 #### [facility] [address] [place], [address] CO2 Normal 21.0-32.0 [facility] Comment on above: Result Comment: Canc elled via OM: Order cancelled - Patient discharged Performed By: #### L 100.0100, L500.2500 #### [facility] [address] [place], [address] CREAT,SERUM Normal 0.55-1.02 [facility] Comment on above: Result Comment: Canc elled via OM: Order cancelled - Patient discharged Performed By: #### L 100.0100, L500.2500 #### [facility] [address] [place], [address] EST GFR Normal >60 [facility] Comment on above: Result Comment: Canc elled via OM: Order cancelled - Patient discharged Performed By: #### L 100.0100, L500.2500 #### [facility] [address] [place], [address] EST GFR - AA Normal >60 [facility] Comment on above: Result Comment: Canc elled via OM: Order cancelled - Patient discharged Performed By: #### L 100.0100, L500.2500 #### [facility] [address] [place], [address] GAP Normal 5-15 [facility] Comment on above: Result Comment: Canc elled via OM: Order cancelled - Patient discharged Performed By: #### L 100.0100, L500.2500 #### [facility] [address] [place], [address] GLU Normal 74-106 [facility] Comment on above: Result Comment: Canc elled via OM: Order cancelled - Patient discharged Performed By: #### L 100.0100, L500.2500 #### [facility] [address] [place], [address] Potassium Normal 3.5-5.1 [facility] Comment on above: Result Comment: Canc elled via OM: Order cancelled - Patient discharged Performed By: #### L 100.0100, L500.2500 #### [facility] [address] [place], [address] Basic Metabolic Profile (BMP) Normal 136-145 [facility] Comment on above: Result Comment: Canc elled via OM: Order cancelled - Patient discharged Performed By: #### L 100.0100, L500.2500 #### [facility] [address] [place], [address] CBC W/Diff, Automatedon - Absolute Neut Normal 2.0-7.7 [facility] Comment on above: Result Comment: Canc elled via OM: Order cancelled - Patient discharged Performed By: #### L 100.0100, L500.2500 #### [facility] [address] [place], [address] HCT Normal 37-47 [facility] Comment on above: Result Comment: Canc elled via OM: Order cancelled - Patient discharged Performed By: #### L 100.0100, L500.2500 #### [facility] [address] [place], [address] HGB Normal 12.0-15.0 [facility] Comment on above: Result Comment: Canc elled via OM: Order cancelled - Patient discharged Performed By: #### L 100.0100, L500.2500 #### [facility] [address] [place], [address] MCH Normal 27.0-32.0 [facility] Comment on above: Result Comment: Canc elled via OM: Order cancelled - Patient discharged Performed By: #### L 100.0100, L500.2500 #### [facility] [address] [place], [address] MCHC Normal 32-36 [facility] Comment on above: Result Comment: Canc elled via OM: Order cancelled - Patient discharged Performed By: #### L 100.0100, L500.2500 #### [facility] [address] [place], [address] MCV Normal 81-99 [facility] Comment on above: Result Comment: Canc elled via OM: Order cancelled - Patient discharged Performed By: #### L 100.0100, L500.2500 #### [facility] [address] [place], [address] NEUT% Normal 47-70 [facility] Comment on above: Result Comment: Canc elled via OM: Order cancelled - Patient discharged Performed By: #### L 100.0100, L500.2500 #### [facility] [address] [place], [address] PLT Normal 150-450 [facility] Comment on above: Result Comment: Canc elled via OM: Order cancelled - Patient discharged Performed By: #### L 100.0100, L500.2500 #### [facility] [address] [place], [address] RBC Normal 4.2-5.4 [facility] Comment on above: Result Comment: Canc elled via OM: Order cancelled - Patient discharged Performed By: #### L 100.0100, L500.2500 #### [facility] [address] [place], [address] RDW CV Normal 11.6-14.6 [facility] Comment on above: Result Comment: Canc elled via OM: Order cancelled - Patient discharged Performed By: #### L 100.0100, L500.2500 #### [facility] [address] [place], [address] RDW SD Normal 35.1-43.9 [facility] Comment on above: Result Comment: Canc elled via OM: Order cancelled - Patient discharged Performed By: #### L 100.0100, L500.2500 #### [facility] [address] [place], [address] WBC Normal 4.4-11.0 [facility] Comment on above: Result Comment: Canc elled via OM: Order cancelled - Patient discharged Performed By: #### L 100.0100, L500.2500 #### [facility] [address] [place], [address] Basic Metabolic Profile (BMP )on 05-29-2024 BUN Normal 7-18 [facility] Comment on above: Result Comment: Canc elled via OM: Order cancelled - Patient discharged Performed By: #### L 500.2500, L100.0100 #### [facility] [address] [place], [address] BUN/CRE Normal 10-20 [facility] Comment on above: Result Comment: Canc elled via OM: Order cancelled - Patient discharged Performed By: #### L 500.2500, L100.0100 #### [facility] [address] [place], [address] CA,Total Normal 8.5-10.1 [facility] Comment on above: Result Comment: Canc elled via OM: Order cancelled - Patient discharged Performed By: #### L 500.2500, L100.0100 #### [facility] [address] [place], [address] CL Normal 98-107 [facility] Comment on above: Result Comment: Canc elled via OM: Order cancelled - Patient discharged Performed By: #### L 500.2500, L100.0100 #### [facility] [address] [place], [address] CO2 Normal 21.0-32.0 [facility] Comment on above: Result Comment: Canc elled via OM: Order cancelled - Patient discharged Performed By: #### L 500.2500, L100.0100 #### [facility] [address] [place], [address] CREAT,SERUM Normal 0.55-1.02 [facility] Comment on above: Result Comment: Canc elled via OM: Order cancelled - Patient discharged Performed By: #### L 500.2500, L100.0100 #### [facility] [address] [place], [address] EST GFR Normal >60 [facility] Comment on above: Result Comment: Canc elled via OM: Order cancelled - Patient discharged Performed By: #### L 500.2500, L100.0100 #### [facility] [address] [place], [address] EST GFR - AA Normal >60 [facility] Comment on above: Result Comment: Canc elled via OM: Order cancelled - Patient discharged Performed By: #### L 500.2500, L100.0100 #### [facility] [address] [place], [address] GAP Normal 5-15 [facility] Comment on above: Result Comment: Canc elled via OM: Order cancelled - Patient discharged Performed By: #### L 500.2500, L100.0100 #### [facility] [address] [place], [address] GLU Normal 74-106 [facility] Comment on above: Result Comment: Canc elled via OM: Order cancelled - Patient discharged Performed By: #### L 500.2500, L100.0100 #### [facility] [address] [place], [address] Potassium Normal 3.5-5.1 [facility] Comment on above: Result Comment: Canc elled via OM: Order cancelled - Patient discharged Performed By: #### L 500.2500, L100.0100 #### [facility] [address] [place], [address] Basic Metabolic Profile (BMP) Normal 136-145 [facility] Comment on above: Result Comment: Canc elled via OM: Order cancelled - Patient discharged Performed By: #### L 500.2500, L100.0100 #### [facility] [address] [place], [address] CBC W/Diff, Automatedon 02-2024 Absolute Neut Normal 2.0-7.7 [facility] Comment on above: Result Comment: Canc elled via OM: Order cancelled - Patient discharged Performed By: #### L 500.2500, L100.0100 #### [facility] [address] [place], [address] HCT Normal 37-47 [facility] Comment on above: Result Comment: Canc elled via OM: Order cancelled - Patient discharged Performed By: #### L 500.2500, L100.0100 #### [facility] [address] [place], [address] HGB Normal 12.0-15.0 [facility] Comment on above: Result Comment: Canc elled via OM: Order cancelled - Patient discharged Performed By: #### L 500.2500, L100.0100 #### [facility] [address] [place], [address] MCH Normal 27.0-32.0 [facility] Comment on above: Result Comment: Canc elled via OM: Order cancelled - Patient discharged Performed By: #### L 500.2500, L100.0100 #### [facility] [address] [place], [address] MCHC Normal 32-36 [facility] Comment on above: Result Comment: Canc elled via OM: Order cancelled - Patient discharged Performed By: #### L 500.2500, L100.0100 #### [facility] [address] [place], [address] MCV Normal 81-99 [facility] Comment on above: Result Comment: Canc elled via OM: Order cancelled - Patient discharged Performed By: #### L 500.2500, L100.0100 #### [facility] [address] [place], [address] NEUT% Normal 47-70 [facility] Comment on above: Result Comment: Canc elled via OM: Order cancelled - Patient discharged Performed By: #### L 500.2500, L100.0100 #### [facility] [address] [place], [address] PLT Normal 150-450 [facility] Comment on above: Result Comment: Canc elled via OM: Order cancelled - Patient discharged Performed By: #### L 500.2500, L100.0100 #### [facility] [address] [place], [address] RBC Normal 4.2-5.4 [facility] Comment on above: Result Comment: Canc elled via OM: Order cancelled - Patient discharged Performed By: #### L 500.2500, L100.0100 #### [facility] [address] [place], [address] RDW CV Normal 11.6-14.6 [facility] Comment on above: Result Comment: Canc elled via OM: Order cancelled - Patient discharged Performed By: #### L 500.2500, L100.0100 #### [facility] [address] [place], [address] RDW SD Normal 35.1-43.9 [facility] Comment on above: Result Comment: Canc elled via OM: Order cancelled - Patient discharged Performed By: #### L 500.2500, L100.0100 #### [facility] [address] [place], [address] WBC Normal 4.4-11.0 [facility] Comment on above: Result Comment: Canc elled via OM: Order cancelled - Patient discharged Performed By: #### L 500.2500, L100.0100 #### [facility] [address] [place], [address] Urine cultureOrdered By: John Botello on 05-29-2024 Bacteria identified Cx Nom (U) Presumptive E. coli Abnormal [facility] Basic Metabolic Profile (BMP )on 05-28-2024 BUN Normal 7-18 [facility] Comment on above: Result Comment: Canc elled via OM: Order cancelled - Patient discharged Performed By: #### L 100.0100, L500.2500 #### [facility] [address] [place], [address] BUN/CRE Normal 10-20 [facility] Comment on above: Result Comment: Canc elled via OM: Order cancelled - Patient discharged Performed By: #### L 100.0100, L500.2500 #### [facility] [address] [place], [address] CA,Total Normal 8.5-10.1 [facility] Comment on above: Result Comment: Canc elled via OM: Order cancelled - Patient discharged Performed By: #### L 100.0100, L500.2500 #### [facility] [address] [place], [address] CL Normal 98-107 [facility] Comment on above: Result Comment: Canc elled via OM: Order cancelled - Patient discharged Performed By: #### L 100.0100, L500.2500 #### [facility] [address] [place], [address] CO2 Normal 21.0-32.0 [facility] Comment on above: Result Comment: Canc elled via OM: Order cancelled - Patient discharged Performed By: #### L 100.0100, L500.2500 #### [facility] [address] [place], [address] CREAT,SERUM Normal 0.55-1.02 [facility] Comment on above: Result Comment: Canc elled via OM: Order cancelled - Patient discharged Performed By: #### L 100.0100, L500.2500 #### [facility] [address] [place], [address] EST GFR Normal >60 [facility] Comment on above: Result Comment: Canc elled via OM: Order cancelled - Patient discharged Performed By: #### L 100.0100, L500.2500 #### [facility] [address] [place], [address] EST GFR - AA Normal >60 [facility] Comment on above: Result Comment: Canc elled via OM: Order cancelled - Patient discharged Performed By: #### L 100.0100, L500.2500 #### [facility] [address] [place], [address] GAP Normal 5-15 [facility] Comment on above: Result Comment: Canc elled via OM: Order cancelled - Patient discharged Performed By: #### L 100.0100, L500.2500 #### [facility] [address] [place], [address] GLU Normal 74-106 [facility] Comment on above: Result Comment: Canc elled via OM: Order cancelled - Patient discharged Performed By: #### L 100.0100, L500.2500 #### [facility] [address] [place], [address] Potassium Normal 3.5-5.1 [facility] Comment on above: Result Comment: Canc elled via OM: Order cancelled - Patient discharged Performed By: #### L 100.0100, L500.2500 #### [facility] [address] [place], [address] Basic Metabolic Profile (BMP) Normal 136-145 [facility] Comment on above: Result Comment: Canc elled via OM: Order cancelled - Patient discharged Performed By: #### L 100.0100, L500.2500 #### [facility] [address] [place], [address] CBC W/Diff, Automatedon 02-0 -2024 Absolute Neut Normal 2.0-7.7 [facility] Comment on above: Result Comment: Canc elled via OM: Order cancelled - Patient discharged Performed By: #### L 100.0100, L500.2500 #### [facility] [address] [place], [address] HCT Normal 37-47 [facility] Comment on above: Result Comment: Canc elled via OM: Order cancelled - Patient discharged Performed By: #### L 100.0100, L500.2500 #### [facility] [address] [place], [address] HGB Normal 12.0-15.0 [facility] Comment on above: Result Comment: Canc elled via OM: Order cancelled - Patient discharged Performed By: #### L 100.0100, L500.2500 #### [facility] [address] [place], [address] MCH Normal 27.0-32.0 [facility] Comment on above: Result Comment: Canc elled via OM: Order cancelled - Patient discharged Performed By: #### L 100.0100, L500.2500 #### [facility] [address] [place], [address] MCHC Normal 32-36 [facility] Comment on above: Result Comment: Canc elled via OM: Order cancelled - Patient discharged Performed By: #### L 100.0100, L500.2500 #### [facility] [address] [place], [address] MCV Normal 81-99 [facility] Comment on above: Result Comment: Canc elled via OM: Order cancelled - Patient discharged Performed By: #### L 100.0100, L500.2500 #### [facility] [address] [place], [address] NEUT% Normal 47-70 [facility] Comment on above: Result Comment: Canc elled via OM: Order cancelled - Patient discharged Performed By: #### L 100.0100, L500.2500 #### [facility] [address] [place], [address] PLT Normal 150-450 [facility] Comment on above: Result Comment: Canc elled via OM: Order cancelled - Patient discharged Performed By: #### L 100.0100, L500.2500 #### [facility] [address] [place], [address] RBC Normal 4.2-5.4 [facility] Comment on above: Result Comment: Canc elled via OM: Order cancelled - Patient discharged Performed By: #### L 100.0100, L500.2500 #### [facility] [address] [place], [address] RDW CV Normal 11.6-14.6 [facility] Comment on above: Result Comment: Canc elled via OM: Order cancelled - Patient discharged Performed By: #### L 100.0100, L500.2500 #### [facility] [address] [place], [address] RDW SD Normal 35.1-43.9 [facility] Comment on above: Result Comment: Canc elled via OM: Order cancelled - Patient discharged Performed By: #### L 100.0100, L500.2500 #### [facility] [address] [place], [address] WBC Normal 4.4-11.0 [facility] Comment on above: Result Comment: Canc elled via OM: Order cancelled - Patient discharged Performed By: #### L 100.0100, L500.2500 #### [facility] [address] [place], [address] Laboratory - Chemistry and C hemistry - challengeOrdered By: Dustin Botello on 05-28-2024 Bilirubin Ql (U) Negative [facility] Glucose Ql (U) Negative [facility] Ketones Ql (U) Negative [facility] pH (U) 5.0 [pH] [facility] Specific gravity (U) [Rel density] 1.020 [facility] Urobilinogen (U) [Mass/Vol] Negative [facility] - Hematology and Cell countsOrdered By: Dustin Botello on 05-28-2024 Hemoglobin Ql (U) Large [facility] - Specimen inform ationOrdered By: Dustin Botello on 05-28-2024 Clarity (U) Cloudy [facility] Color (U) Dk Yellow [facility] - UrinalysisOrder ed By: Dustin Botello on 05-28-2024 Nitrite Ql (U) Negative [facility] Protein Ql (U) 1+ [facility] No Panel InformationOrdered By: Dustin Botello on 05-28-2024 Urine Leukocytes Positive [facility] Urine Non-Hemolyzed Blood [facility] Urgent Care Visit Reporton 0 05-28-2024 Urgent Care Visit Report [facility] [address], [address] [place] [address] OFFICE VISIT Date of Service: 05/28/24 MR#: [id number] Acct: [id number] Name: HONG KHAN Rep #: [id number] : 1965 Provider: TETO mast Age/Sex: 58/F Location: [email or web address] Status: Signed Intake Vital Signs 05/20/24 13:31 05/28/24 09:30 Height 5 ft 6 in BP 142/80 H Blood Pressure Location Rt brachial Position Sitting Respiration 18 Pulse 114 H Pulse Source NIBP Temp 98.1 F Temp Source Oral Pulse Oximetry (%) 90 Oxygen Delivery Method room air Intake Visit Reasons: Urinary tract infection Chief Complaint: urinary frequency, decreased output, back pain Sightseeing Guide Required: No Is patient in pain?: No Allergies hydrocodone bitartrate (From Vicodin) Allergy (Verified 05/28/24 09:31) Rash erythromycin base Adverse Reaction (Verified 05/28/24 09:31) Vomiting Penicillins (PCN) Adverse Reaction (Verified 05/28/24 09:31) Upset Stomach Is last menstrual period known: No Post menopausal: Yes Patient : No Have you fallen in the past year?: No Nurse's Note: urinary frequency, decreased output, back pain x 24 hours. denies fever, blood. concern for UTI. [facility] SOB in office. best Sp02 was 90% after resting and deep breathing with immediate return to 88%. info given to provider. 2L O2 provided per 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 DEHYDROGENATION-C) Dyspnea Chronic cough Bronchitis Left upper quadrant pain PAC (premature atrial contraction) Knee bursitis Preventative health care Otitis Left ear pain Generalized anxiety disorder Morbid obesity History of smoking 30 or more pack years Health care maintenance Thyroid nodule Wears glasses Post-menopausal Sleep apnea Hypertension history of right elbow fracture Migraines History of pneumonia Frequent headaches Rheumatoid arthritis History of breast lump Seasonal allergies Hypertension Surgical History Hx of colonoscopy History of endometrial ablation History of carpal tunnel surgery History of breast biopsy S/P thyroid biopsy Family History Mother Anxiety and depression Arthritis Father Hypertension Grandmother Osteoporosis Social History household members: spouse housing: house current occupational status: employed 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 She notes urinary urgency with little urine. She states it feels weird. She notes lower back pain. She recently discharged with Flu. She was discharged with Tamiflu and 5-day course of prednisone. When she presented today her oxygenation was at 88. She was placed on 2 L of oxygen and she acknowledged improvement in symptoms. She did not meet qualification for oxygen up prior to discharge. ROS Const Constitutional: No body ache, chills, fatigue, fever(s), headache(s) or change in appetite Eyes Eyes: No blurry vision, change in vision, double vision, irritation, discharge, vision loss, dry eyes, bulging eyes, floaters, visual disturbances, eye pain, Light sensitivity, spots in vision, tunnel vision or other ENT ENT: No ear or mastoid pain, ear discharge, ear pressure, tinnitus, dizziness/vertigo, nosebleed/epistaxis, nasal congestion, nose pain, sinus pressure, sinus pain, nasal discharge, post nasal drip, headache(s), facial pain, dental pain, difficulty swallowing, bad breath, hoarseness, lip swelling, mouth lesions, mouth pain, neck pain, sore throat, tongue swelling or throat swelling Resp Respiratory: Positive for cough and shortness of breath; No change in phlegm color, chest congestion, hemoptysis, pain on inspiration, pain with cough, stridor or wheezing Cardio Cardiology: No chest pain at rest, chest pain with exertion, shortness of breath, dyspnea on exertion or lightheadedness Gastro GI: No abdominal pain, change in bowel habits or difficulty swallowing Genitourinary-Female: Positive for burning urination, urinary frequency, urinary urgency and side pain; No urinary incontinence Musc Musculoskeletal: No joint pain or neck pain Skin Skin: No rash Neuro Neurology: No head (more content not included)... Normal [facility] Basic Metabolic Profile (BMP )on 05-27-2024 BUN Normal -18 [facility] Comment on above: Result Comment: Canc elled via OM: Order cancelled - Patient discharged Performed By: #### L 500.2500, L100.0100 #### [facility] [address] [place], [address] BUN/CRE Normal - [facility] Comment on above: Result Comment: Canc elled via OM: Order cancelled - Patient discharged Performed By: #### L 500.2500, L100.0100 #### [facility] [address] [place], [address] CA,Total Normal 8.5-10.1 [facility] Comment on above: Result Comment: Canc elled via OM: Order cancelled - Patient discharged Performed By: #### L 500.2500, L100.0100 #### [facility] [address] [place], [address] CL Normal 98-107 [facility] Comment on above: Result Comment: Canc elled via OM: Order cancelled - Patient discharged Performed By: #### L 500.2500, L100.0100 #### [facility] [address] [place], [address] CO2 Normal 21.0-32.0 [facility] Comment on above: Result Comment: Canc elled via OM: Order cancelled - Patient discharged Performed By: #### L 500.2500, L100.0100 #### [facility] [address] [place], [address] CREAT,SERUM Normal 0.55-1.02 [facility] Comment on above: Result Comment: Canc elled via OM: Order cancelled - Patient discharged Performed By: #### L 500.2500, L100.0100 #### [facility] [address] [place], [address] EST GFR Normal >60 [facility] Comment on above: Result Comment: Canc elled via OM: Order cancelled - Patient discharged Performed By: #### L 500.2500, L100.0100 #### [facility] [address] [place], [address] EST GFR - AA Normal >60 [facility] Comment on above: Result Comment: Canc elled via OM: Order cancelled - Patient discharged Performed By: #### L 500.2500, L100.0100 #### [facility] [address] [place], [address] GAP Normal 5-15 [facility] Comment on above: Result Comment: Canc elled via OM: Order cancelled - Patient discharged Performed By: #### L 500.2500, L100.0100 #### [facility] [address] [place], [address] GLU Normal 74-106 [facility] Comment on above: Result Comment: Canc elled via OM: Order cancelled - Patient discharged Performed By: #### L 500.2500, L100.0100 #### [facility] [address] [place], [address] Potassium Normal 3.5-5.1 [facility] Comment on above: Result Comment: Canc elled via OM: Order cancelled - Patient discharged Performed By: #### L 500.2500, L100.0100 #### [facility] [address] [place], [address] Basic Metabolic Profile (BMP) Normal 136-145 [facility] Comment on above: Result Comment: Canc elled via OM: Order cancelled - Patient discharged Performed By: #### L 500.2500, L100.0100 #### [facility] [address] [place], [address] CBC W/Diff, Automatedon 02-0 -2024 Absolute Neut Normal 2.0-7.7 [facility] Comment on above: Result Comment: Canc elled via OM: Order cancelled - Patient discharged Performed By: #### L 500.2500, L100.0100 #### [facility] [address] [place], [address] HCT Normal 37-47 [facility] Comment on above: Result Comment: Canc elled via OM: Order cancelled - Patient discharged Performed By: #### L 500.2500, L100.0100 #### [facility] [address] [place], [address] HGB Normal 12.0-15.0 [facility] Comment on above: Result Comment: Canc elled via OM: Order cancelled - Patient discharged Performed By: #### L 500.2500, L100.0100 #### [facility] [address] [place], [address] MCH Normal 27.0-32.0 [facility] Comment on above: Result Comment: Canc elled via OM: Order cancelled - Patient discharged Performed By: #### L 500.2500, L100.0100 #### [facility] [address] [place], [address] MCHC Normal 32-36 [facility] Comment on above: Result Comment: Canc elled via OM: Order cancelled - Patient discharged Performed By: #### L 500.2500, L100.0100 #### [facility] [address] [place], [address] MCV Normal 81-99 [facility] Comment on above: Result Comment: Canc elled via OM: Order cancelled - Patient discharged Performed By: #### L 500.2500, L100.0100 #### [facility] [address] [place], [address] NEUT% Normal 47-70 [facility] Comment on above: Result Comment: Canc elled via OM: Order cancelled - Patient discharged Performed By: #### L 500.2500, L100.0100 #### [facility] [address] [place], [address] PLT Normal 150-450 [facility] Comment on above: Result Comment: Canc elled via OM: Order cancelled - Patient discharged Performed By: #### L 500.2500, L100.0100 #### [facility] [address] [place], [address] RBC Normal 4.2-5.4 [facility] Comment on above: Result Comment: Canc elled via OM: Order cancelled - Patient discharged Performed By: #### L 500.2500, L100.0100 #### [facility] [address] [place], [address] RDW CV Normal 11.6-14.6 [facility] Comment on above: Result Comment: Canc elled via OM: Order cancelled - Patient discharged Performed By: #### L 500.2500, L100.0100 #### [facility] [address] [place], [address] RDW SD Normal 35.1-43.9 [facility] Comment on above: Result Comment: Canc elled via OM: Order cancelled - Patient discharged Performed By: #### L 500.2500, L100.0100 #### [facility] [address] [place], [address] WBC Normal 4.4-11.0 [facility] Comment on above: Result Comment: Canc elled via OM: Order cancelled - Patient discharged Performed By: #### L 500.2500, L100.0100 #### [facility] [address] [place], [address] Basic Metabolic Profile (BMP )on 05-26-2024 BUN Normal 7-18 [facility] Comment on above: Result Comment: Canc elled via OM: Order cancelled - Patient discharged Performed By: #### L 500.2500, L100.0100 #### [facility] [address] [place], [address] BUN/CRE Normal 10-20 [facility] Comment on above: Result Comment: Canc elled via OM: Order cancelled - Patient discharged Performed By: #### L 500.2500, L100.0100 #### [facility] [address] [place], [address] CA,Total Normal 8.5-10.1 [facility] Comment on above: Result Comment: Canc elled via OM: Order cancelled - Patient discharged Performed By: #### L 500.2500, L100.0100 #### [facility] [address] [place], [address] CL Normal 98-107 [facility] Comment on above: Result Comment: Canc elled via OM: Order cancelled - Patient discharged Performed By: #### L 500.2500, L100.0100 #### [facility] [address] [place], [address] CO2 Normal 21.0-32.0 [facility] Comment on above: Result Comment: Canc elled via OM: Order cancelled - Patient discharged Performed By: #### L 500.2500, L100.0100 #### [facility] [address] [place], [address] CREAT,SERUM Normal 0.55-1.02 [facility] Comment on above: Result Comment: Canc elled via OM: Order cancelled - Patient discharged Performed By: #### L 500.2500, L100.0100 #### [facility] [address] [place], [address] EST GFR Normal >60 [facility] Comment on above: Result Comment: Canc elled via OM: Order cancelled - Patient discharged Performed By: #### L 500.2500, L100.0100 #### [facility] [address] [place], [address] EST GFR - AA Normal >60 [facility] Comment on above: Result Comment: Canc elled via OM: Order cancelled - Patient discharged Performed By: #### L 500.2500, L100.0100 #### [facility] [address] [place], [address] GAP Normal 5-15 [facility] Comment on above: Result Comment: Canc elled via OM: Order cancelled - Patient discharged Performed By: #### L 500.2500, L100.0100 #### [facility] [address] [place], [address] GLU Normal 74-106 [facility] Comment on above: Result Comment: Canc elled via OM: Order cancelled - Patient discharged Performed By: #### L 500.2500, L100.0100 #### [facility] [address] [place], [address] Potassium Normal 3.5-5.1 [facility] Comment on above: Result Comment: Canc elled via OM: Order cancelled - Patient discharged Performed By: #### L 500.2500, L100.0100 #### [facility] [address] [place], [address] Basic Metabolic Profile (BMP) Normal 136-145 [facility] Comment on above: Result Comment: Canc elled via OM: Order cancelled - Patient discharged Performed By: #### L 500.2500, L100.0100 #### [facility] [address] [place], [address] CBC W/Diff, Automatedon 02-0 -2024 Absolute Neut Normal 2.0-7.7 [facility] Comment on above: Result Comment: Canc elled via OM: Order cancelled - Patient discharged Performed By: #### L 500.2500, L100.0100 #### [facility] [address] [place], [address] HCT Normal 37-47 [facility] Comment on above: Result Comment: Canc elled via OM: Order cancelled - Patient discharged Performed By: #### L 500.2500, L100.0100 #### [facility] [address] [place], [address] HGB Normal 12.0-15.0 [facility] Comment on above: Result Comment: Canc elled via OM: Order cancelled - Patient discharged Performed By: #### L 500.2500, L100.0100 #### [facility] [address] [place], [address] MCH Normal 27.0-32.0 [facility] Comment on above: Result Comment: Canc elled via OM: Order cancelled - Patient discharged Performed By: #### L 500.2500, L100.0100 #### [facility] [address] [place], [address] MCHC Normal 32-36 [facility] Comment on above: Result Comment: Canc elled via OM: Order cancelled - Patient discharged Performed By: #### L 500.2500, L100.0100 #### [facility] [address] [place], [address] MCV Normal 81-99 [facility] Comment on above: Result Comment: Canc elled via OM: Order cancelled - Patient discharged Performed By: #### L 500.2500, L100.0100 #### [facility] [address] [place], [address] NEUT% Normal 47-70 [facility] Comment on above: Result Comment: Canc elled via OM: Order cancelled - Patient discharged Performed By: #### L 500.2500, L100.0100 #### [facility] [address] [place], [address] PLT Normal 150-450 [facility] Comment on above: Result Comment: Canc elled via OM: Order cancelled - Patient discharged Performed By: #### L 500.2500, L100.0100 #### [facility] [address] [place], [address] RBC Normal 4.2-5.4 [facility] Comment on above: Result Comment: Canc elled via OM: Order cancelled - Patient discharged Performed By: #### L 500.2500, L100.0100 #### [facility] [address] [place], [address] RDW CV Normal 11.6-14.6 [facility] Comment on above: Result Comment: Canc elled via OM: Order cancelled - Patient discharged Performed By: #### L 500.2500, L100.0100 #### [facility] [address] [place], [address] RDW SD Normal 35.1-43.9 [facility] Comment on above: Result Comment: Canc elled via OM: Order cancelled - Patient discharged Performed By: #### L 500.2500, L100.0100 #### [facility] [address] [place], [address] WBC Normal 4.4-11.0 [facility] Comment on above: Result Comment: Canc elled via OM: Order cancelled - Patient discharged Performed By: #### L 500.2500, L100.0100 #### [facility] [address] [place], [address] Basic Metabolic Profile (BMP )on 05-25-2024 BUN Normal 7-18 [facility] Comment on above: Result Comment: Canc elled via OM: Order cancelled - Patient discharged Performed By: #### L 100.0100, L500.2500 #### [facility] [address] [place], [address] BUN/CRE Normal 10-20 [facility] Comment on above: Result Comment: Canc elled via OM: Order cancelled - Patient discharged Performed By: #### L 100.0100, L500.2500 #### [facility] [address] [place], [address] CA,Total Normal 8.5-10.1 [facility] Comment on above: Result Comment: Canc elled via OM: Order cancelled - Patient discharged Performed By: #### L 100.0100, L500.2500 #### [facility] [address] [place], [address] CL Normal 98-107 [facility] Comment on above: Result Comment: Canc elled via OM: Order cancelled - Patient discharged Performed By: #### L 100.0100, L500.2500 #### [facility] [address] [place], [address] CO2 Normal 21.0-32.0 [facility] Comment on above: Result Comment: Canc elled via OM: Order cancelled - Patient discharged Performed By: #### L 100.0100, L500.2500 #### [facility] [address] [place], [address] CREAT,SERUM Normal 0.55-1.02 [facility] Comment on above: Result Comment: Canc elled via OM: Order cancelled - Patient discharged Performed By: #### L 100.0100, L500.2500 #### [facility] [address] [place], [address] EST GFR Normal >60 [facility] Comment on above: Result Comment: Canc elled via OM: Order cancelled - Patient discharged Performed By: #### L 100.0100, L500.2500 #### [facility] [address] [place], [address] EST GFR - AA Normal >60 [facility] Comment on above: Result Comment: Canc elled via OM: Order cancelled - Patient discharged Performed By: #### L 100.0100, L500.2500 #### [facility] [address] [place], [address] GAP Normal 5-15 [facility] Comment on above: Result Comment: Canc elled via OM: Order cancelled - Patient discharged Performed By: #### L 100.0100, L500.2500 #### [facility] [address] [place], [address] GLU Normal 74-106 [facility] Comment on above: Result Comment: Canc elled via OM: Order cancelled - Patient discharged Performed By: #### L 100.0100, L500.2500 #### [facility] [address] [place], [address] Potassium Normal 3.5-5.1 [facility] Comment on above: Result Comment: Canc elled via OM: Order cancelled - Patient discharged Performed By: #### L 100.0100, L500.2500 #### [facility] [address] [place], [address] Basic Metabolic Profile (BMP) Normal 136-145 [facility] Comment on above: Result Comment: Canc elled via OM: Order cancelled - Patient discharged Performed By: #### L 100.0100, L500.2500 #### [facility] [address] [place], [address] CBC W/Diff, Automatedon 02-0 -2024 Absolute Neut Normal 2.0-7.7 [facility] Comment on above: Result Comment: Canc elled via OM: Order cancelled - Patient discharged Performed By: #### L 100.0100, L500.2500 #### [facility] [address] [place], [address] HCT Normal 37-47 [facility] Comment on above: Result Comment: Canc elled via OM: Order cancelled - Patient discharged Performed By: #### L 100.0100, L500.2500 #### [facility] [address] [place], [address] HGB Normal 12.0-15.0 [facility] Comment on above: Result Comment: Canc elled via OM: Order cancelled - Patient discharged Performed By: #### L 100.0100, L500.2500 #### [facility] [address] [place], [address] MCH Normal 27.0-32.0 [facility] Comment on above: Result Comment: Canc elled via OM: Order cancelled - Patient discharged Performed By: #### L 100.0100, L500.2500 #### [facility] [address] [place], [address] MCHC Normal 32-36 [facility] Comment on above: Result Comment: Canc elled via OM: Order cancelled - Patient discharged Performed By: #### L 100.0100, L500.2500 #### [facility] [address] [place], [address] MCV Normal 81-99 [facility] Comment on above: Result Comment: Canc elled via OM: Order cancelled - Patient discharged Performed By: #### L 100.0100, L500.2500 #### [facility] [address] [place], [address] NEUT% Normal 47-70 [facility] Comment on above: Result Comment: Canc elled via OM: Order cancelled - Patient discharged Performed By: #### L 100.0100, L500.2500 #### [facility] [address] [place], [address] PLT Normal 150-450 [facility] Comment on above: Result Comment: Canc elled via OM: Order cancelled - Patient discharged Performed By: #### L 100.0100, L500.2500 #### [facility] [address] [place], [address] RBC Normal 4.2-5.4 [facility] Comment on above: Result Comment: Canc elled via OM: Order cancelled - Patient discharged Performed By: #### L 100.0100, L500.2500 #### [facility] [address] [place], [address] RDW CV Normal 11.6-14.6 [facility] Comment on above: Result Comment: Canc elled via OM: Order cancelled - Patient discharged Performed By: #### L 100.0100, L500.2500 #### [facility] [address] [place], [address] RDW SD Normal 35.1-43.9 [facility] Comment on above: Result Comment: Canc elled via OM: Order cancelled - Patient discharged Performed By: #### L 100.0100, L500.2500 #### [facility] [address] [place], [address] WBC Normal 4.4-11.0 [facility] Comment on above: Result Comment: Canc elled via OM: Order cancelled - Patient discharged Performed By: #### L 100.0100, L500.2500 #### [facility] [address] [place], [address] Absolute lymphocyte countOrd ered By: Nany Kebede on 05-24-2024 Lymphocytes Auto (Unsp spec) [#/Vol] 0.93 10*3/uL 0.83-4.51 [facility] Absolute neutrophil countOrd ered By: Nany Kebede on 05-24-2024 Neutrophils (Bld) [#/Vol] 9.1 10*3/uL High 2.0-7.7 [facility] Automated lymphocyte count a s percentage of total leukocytesOrdered By: Nany Kebede on 05-24-2024 Lymphocytes/100 WBC Auto (Unsp spec) 8.5 % Low 19-41 [facility] Basic Metabolic Profile (BMP )on 05-24-2024 BUN/CRE 21.6 RATIO High 10-20 [facility] Comment on above: Performed By: #### L 100.0100, L500.2500 #### [facility] [address] [place], [address] CA,Total 9.1 mg/dL Normal 8.5-10.1 [facility] Comment on above: Performed By: #### L 100.0100, L500.2500 #### [facility] [address] [place], [address] Chloride [Moles/Vol] 106 mmol/L Normal 98-107 [facility] Comment on above: Performed By: #### L 100.0100, L500.2500 #### [facility] [address] [place], [address] CO2 [Moles/Vol] 27.0 mmol/L Normal 21.0-32.0 [facility] Comment on above: Performed By: #### L 100.0100, L500.2500 #### [facility] [address] [place], [address] Creatinine [Mass/Vol] 0.88 mg/dL Normal 0.55-1.02 [facility] Comment on above: Result Comment: The validity of the calculated GFR GFRAA in patients over 70 years has not been determined. Clinical correlation is essential. Performed By: #### L 100.0100, L500.2500 #### [facility] [address] [place], [address] ECRCL 97.18 ml/min Normal [facility] Comment on above: Performed By: #### L 100.0100, L500.2500 #### [facility] [address] [place], [address] EST GFR - AA 85 mL/min Normal >60 [facility] Comment on above: Result Comment: Afri can Panamanian GFR Calc Performed By: #### L 100.0100, L500.2500 #### [facility] [address] [place], [address] GAP 6 Normal 5-15 [facility] Comment on above: Performed By: #### L 100.0100, L500.2500 #### [facility] [address] [place], [address] GFR/1.73 sq M.predicted among non-blacks MDRD (S/P/Bld) [Vol rate/Area] 70 mL/min/{1.73_m2} Normal >60 [facility] Comment on above: Result Comment: Non- GFR Calc Performed By: #### L 100.0100, L500.2500 #### [facility] [address] [place], [address] Glucose [Mass/Vol] 118 mg/dL High 74-106 [facility] Comment on above: Result Comment: Fast ing Glucose result from 100 to 125 mg/dL suggests IMPAIRED HOMEOSTASIS per A.D.A. criteria. Performed By: #### L 100.0100, L500.2500 #### [facility] [address] [place], [address] Potassium [Moles/Vol] 4.1 mmol/L Normal 3.5-5.1 [facility] Comment on above: Performed By: #### L 100.0100, L500.2500 #### [facility] [address] [place], [address] Sodium [Moles/Vol] 138 mmol/L Normal 136-145 [facility] Comment on above: Performed By: #### L 100.0100, L500.2500 #### [facility] [address] [place], [address] Urea nitrogen [Mass/Vol] 19 mg/dL High 7-18 [facility] Comment on above: Performed By: #### L 100.0100, L500.2500 #### [facility] [address] [place], [address] Basophil percentageOrdered B y: Nany Kebede on 05-24-2024 Basophils/100 WBC (Bld) 0.6 % 0-1 [facility] Blood urea nitrogen (BUN)/cr eatinine ratioOrdered By: Nany Kebede on 05-24-2024 Urea nitrogen/Creatinine [Mass ratio] 21.6 mg/mg High 10-20 [facility] CBC W/Diff, Automatedon Absolute Lymph 0.93 X10 3/uL Normal 0.83-4.51 [facility] Comment on above: Performed By: #### L 100.0100, L500.2500 #### [facility] [address] [place], [address] Absolute Neut 9.1 X10 3/uL High 2.0-7.7 [facility] Comment on above: Performed By: #### L 100.0100, L500.2500 #### [facility] [address] [place], [address] Basophils/100 WBC (Bld) 0.6 % Normal 0-1 [facility] Comment on above: Performed By: #### L 100.0100, L500.2500 #### [facility] [address] [place], [address] Eosinophils/100 WBC (Bld) 0.0 % Normal 0-5 [facility] Comment on above: Performed By: #### L 100.0100, L500.2500 #### [facility] [address] [place], [address] Erythrocyte distribution width (RBC) [Ratio] 17.2 % High 11.6-14.6 [facility] Comment on above: Performed By: #### L 100.0100, L500.2500 #### [facility] [address] [place], [address] Hematocrit (Bld) [Volume fraction] 42.7 % Normal 37-47 [facility] Comment on above: Performed By: #### L 100.0100, L500.2500 #### [facility] [address] [place], [address] Hemoglobin (Bld) [Mass/Vol] 12.7 g/dL Normal 12.0-15.0 [facility] Comment on above: Performed By: #### L 100.0100, L500.2500 #### [facility] [address] [place], [address] IG% 2.300 High 0.0-0.9 [facility] Comment on above: Result Comment: IG% - Immature Granulocytes (promyelocytes, myelocytes and metamyelocytes) > 1% indicates that a LEFT SHIFT is Present. Performed By: #### L 100.0100, L500.2500 #### [facility] [address] [place], [address] Lymphocytes/100 WBC (Bld) 8.5 % Low 19-41 [facility] Comment on above: Performed By: #### L 100.0100, L500.2500 #### [facility] [address] [place], [address] MCH (RBC) [Entitic mass] 27.5 pg Normal 27.0-32.0 [facility] Comment on above: Performed By: #### L 100.0100, L500.2500 #### [facility] [address] [place], [address] MCHC (RBC) [Mass/Vol] 29.7 g/dL Low 32-36 [facility] Comment on above: Performed By: #### L 100.0100, L500.2500 #### [facility] [address] [place], [address] MCV (RBC) [Entitic vol] 92.6 fL Normal 81-99 [facility] Comment on above: Performed By: #### L 100.0100, L500.2500 #### [facility] [address] [place], [address] Monocytes/100 WBC (Bld) 5.3 % Normal 0-10 [facility] Comment on above: Performed By: #### L 100.0100, L500.2500 #### [facility] [address] [place], [address] Neutrophils/100 WBC (Bld) 83.3 % High 47-70 [facility] Comment on above: Performed By: #### L 100.0100, L500.2500 #### [facility] [address] [place], [address] Nucleated RBC (Bld) [#/Vol] 0.2 10*3/uL Normal 0-5 [facility] Comment on above: Performed By: #### L 100.0100, L500.2500 #### [facility] [address] [place], [address] Platelet mean volume (Bld) [Entitic vol] 9.7 fL Normal 6.2-12.0 [facility] Comment on above: Performed By: #### L 100.0100, L500.2500 #### [facility] [address] [place], [address] Platelets (Bld) [#/Vol] 309 10*3/uL Normal 150-450 [facility] Comment on above: Performed By: #### L 100.0100, L500.2500 #### [facility] [address] [place], [address] RBC (Bld) [#/Vol] 4.61 10*6/uL Normal 4.2-5.4 [facility] Comment on above: Performed By: #### L 100.0100, L500.2500 #### [facility] [address] [place], [address] RDW SD 57.7 fl High 35.1-43.9 [facility] Comment on above: Performed By: #### L 100.0100, L500.2500 #### [facility] [address] [place], [address] WBC (Bld) [#/Vol] 10.9 10*3/uL Normal 4.4-11.0 [facility] Comment on above: Performed By: #### L 100.0100, L500.2500 #### [facility] [address] [place], [address] Carbon dioxide measurementOr dered By: Nany Kebede on 05-24-2024 CO2 [Moles/Vol] 27.0 mmol/L 21.0-32.0 [facility] Chloride measurementOrdered By: Nany Kebede on 05-24-2024 Chloride [Moles/Vol] 106 mmol/L 98-107 [facility] Discharge Instructionon Discharge Instruction [facility] Medical Records Department [address] [place] [address] Instructions for Home/Discharge Instructions 05/24/24 1457 MR#: [id number] Acct: [id number] Name: HONG KHAN Rep #: [id number] : 1965 58 From: Nany Kebede MD PCP: Dr. Nicky Covarrubias MD Status:ADM IN Discharge Instructions Diet Discharge Diet: Low fat / Low cholesterol DC O2, CPAP, BIPAP needs RN Home O2 Qualification: Home O2 Qualification: Is the patient on home oxygen No 05/24/24 11:15 Home O2 Qualification: AT REST 1- Pulse Ox at rest 94 05/24/24 11:15 Home O2 Qualification: WITH AMBULATION 1- Pulse Ox with ambulation 89 05/24/24 11:15 1- Oxygen Flow Rate with 0 05/24/24 11:15 ambulation Home O2 Discharge instructions: No Follow Up Care Test Results: Test results from this visit will be discussed in further detail at your follow-up appointment, if applicable. Discharge Plan Admission Admit Date/Time: 05/19/24 18:08 Primary Reason for Your Visit: acute influenza infection Attending Provider: Nany Kebede Primary Care Provider: Nicky Covarrubias Consulting Providers: Oli Marcelino; Zelalem Ramires Instructions Patient Instructions: ED Influenza (Adult) Discharge Orders/Prescriptions Prescriptions: New prednisone 20 mg tablet 40 mg PO DAILY Qty: 10 0RF Continued melatonin 5 mg capsule 5 mg PO QHS loratadine [Claritin] 10 mg tablet 10 mg PO DAILY methotrexate sodium 2.5 mg tablet 20 mg PO QWEEK Patient Comments: per pt takes 10 mg BID qmonday. albuterol sulfate 90 mcg/actuation HFA aerosol inhaler 2 puff inhalation Q6H PRN (Reason: shortness of breath or wheezing) Qty: 8.5 3RF rizatriptan 10 mg tablet 10 mg PO ONCE PRN (Reason: migraine headache) Rx Instructions: as a single dose benzonatate 100 mg capsule 100 mg PO BID-TID PRN (Reason: cough) Qty: 90 0RF buspirone 7.5 mg tablet 7.5 mg PO BID Patient Comments: per pt no longer taking hydroxychloroquine [Plaquenil] 200 mg tablet 200 mg PO BID Qty: 60 1RF folic acid 1 mg tablet 1 mg PO BID Qty: 90 1RF amlodipine 5 mg tablet 5 mg PO DAILY Qty: 90 0RF sertraline 50 mg tablet 50 mg PO DAILY Qty: 90 0RF fluticasone furoate-vilanterol [Breo Ellipta] 100-25 mcg/dose blister with device 1 inh inhalation Q24H Qty: 60 0RF Discontinued prednisone 10 mg tablets,dose pack See Rx Instructions PO PER PKG DIR Qty: 48 0RF Rx Instructions: PO PER PKG DIR Referrals / Follow Up: Nicky Covarrubias MD [Primary Care Provider] - Within 1 Week Disposition Disposition (needs filled in before D/C Order can be placed): Home, Self Care 05/24/24 4049 Nany Kebede MD CC: Dr. Oli Marcelino DO; Dr. Nicky Covarrubias MD; Dr. Zelalem Ramires DO Signed Normal [facility] Eosinophil percentageOrdered By: Nany Kebede on 05-24-2024 Eosinophils/100 WBC (Bld) 0.0 % 0-5 [facility] Erythrocyte distribution wid th ratioOrdered By: Nany Kebede on 05-24-2024 Erythrocyte distribution width (RBC) [Ratio] 17.2 % High 11.6-14.6 [facility] Erythrocyte distribution wid th standard deviationOrdered By: Nany Kebede on 05-24-2024 Erythrocyte distribution width (RBC) [Entitic vol] 57.7 fL High 35.1-43.9 [facility] Erythrocyte distribution width (RBC) [Ratio] 57.7 fl High 35.1-43.9 [facility] Estimated glomerular filtrat ion rate (GFR) AmericanOrdered By: Nany Kebede on 05-24-2024 Estimated GFR (MDRD) Amer 85 mL/min >60 [facility] Comment on above: GFR Calc Estimation of creatinine yadi aranceOrdered By: Nany Kebede on 05-24-2024 Estimated Creatinine Clearance Calc 97.18 ml/min [facility] Glomerular filtration rate ( GFR) estimationOrdered By: Nany Kebede on 05-24-2024 Estimated GFR (MDRD) Non-Af Amer 70 mL/min >60 [facility] Comment on above: Non- GFR Calc GFR/1.73 sq M.predicted among non-blacks MDRD (S/P/Bld) [Vol rate/Area] 70 mL/min/{1.73_m2} >60 [facility] Comment on above: Non- GFR Calc Glucose measurementOrdered B y: Nany Kebede on 05-24-2024 Glucose [Mass/Vol] 118 mg/dL High 74-106 [facility] Comment on above: Fasting Glucose resu lt from 100 to 125 mg/dL suggests IMPAIRED HOMEOSTASIS per A.D.A. criteria. Hematocrit Auto (Bld) [Volum e fraction]Ordered By: Nany Kebede on 05-24-2024 Hematocrit (Bld) [Volume fraction] 42.7 % 37-47 [facility] Hemoglobin measurementOrdere d By: Nany Kebede on 05-24-2024 Hemoglobin (Bld) [Mass/Vol] 12.7 g/dL 12.0-15.0 [facility] Immature granulocytes/100 WB C Auto (Bld)Ordered By: Nany Kebede on 05-24-2024 Immature granulocytes/100 WBC (Bld) 2.300 % High 0.0-0.9 [facility] Comment on above: IG% - Immature Granu locytes (promyelocytes, myelocytes and metamyelocytes) > 1% indicates that a LEFT SHIFT is Present. Lymphocytes Auto (Unsp spec) [#/Vol]Ordered By: Nany Kebede on 05-24-2024 Lymphocytes (Bld) [#/Vol] 0.93 10*3/uL 0.83-4.51 [facility] Lymphocytes/100 WBC Auto (Un sp spec)Ordered By: Nany Kebede on 05-24-2024 Lymphocytes/100 WBC (Bld) 8.5 % Low 19-41 [facility] MCV (mean corpuscular volume ) determinationOrdered By: Nany Kebede on 05-24-2024 MCV (RBC) [Entitic vol] 92.6 fL 81-99 [facility] Mean corpuscular hemoglobin (MCH) determinationOrdered By: Nany Kebede on 05-24-2024 MCH (RBC) [Entitic mass] 27.5 pg 27.0-32.0 [facility] Mean corpuscular hemoglobin concentration (MCHC) determinationOrdered By: Nany Kebede on 05-24-2024 MCHC (RBC) [Mass/Vol] 29.7 g/dL Low 32-36 [facility] Mean platelet volume determi nationOrdered By: Nany Kebede on 05-24-2024 Platelet mean volume (Bld) [Entitic vol] 9.7 fL 6.2-12.0 [facility] Monocyte percentageOrdered B y: Nany Kebede on 05-24-2024 Monocytes/100 WBC (Bld) 5.3 % 0-10 [facility] Neutrophil percentageOrdered By: Nany Kebede on 05-24-2024 Neutrophils/100 WBC (Bld) 83.3 % High 47-70 [facility] Nucleated red blood cell per centageOrdered By: Nany Kebede on 05-24-2024 Nucleated RBC/100 WBC (Bld) [Ratio] 0.2 % 0-5 [facility] Platelet countOrdered By: Caty Kebede on 05-24-2024 Platelets (Bld) [#/Vol] 309 10*3/uL 150-450 [facility] Potassium measurementOrdered By: Nany Kebede on 05-24-2024 Potassium [Moles/Vol] 4.1 mmol/L 3.5-5.1 [facility] RBC Auto (Bld) [#/Vol]Ordere d By: Nany Kebede on 05-24-2024 RBC (Bld) [#/Vol] 4.61 10*6/uL 4.2-5.4 [facility] Serum anion gap measurementO rdered By: Nany Kebede on 05-24-2024 Anion gap [Moles/Vol] 6 mmol/L 5-15 [facility] Serum or plasma calcium roxi urement (mass/volume)Ordered By: Nany Kebede on 05-24-2024 Calcium [Mass/Vol] 9.1 mg/dL 8.5-10.1 [facility] Serum or plasma creatinine m easurement (mass/volume)Ordered By: Nany Kebede on 05-24-2024 Creatinine [Mass/Vol] 0.88 mg/dL 0.55-1.02 [facility] Comment on above: The validity of the calculated GFR & GFRAA in patients over 70 years has not been determined. Clinical correlation is essential. Serum or plasma urea nitroge n measurement (mass/volume)Ordered By: Nany Kebede on 05-24-2024 Urea nitrogen [Mass/Vol] 19 mg/dL High 7-18 [facility] Sodium levelOrdered By: Nany Kebede on 05-24-2024 Sodium [Moles/Vol] 138 mmol/L 136-145 [facility] White blood cell (WBC) count Ordered By: Nany Kebede on 05-24-2024 WBC (Bld) [#/Vol] 10.9 10*3/uL 4.4-11.0 [facility] Basic Metabolic Profile (BMP )on 05-23-2024 BUN/CRE 17.8 RATIO Normal 10-20 [facility] Comment on above: Performed By: #### L 500.2500, L100.0100 #### [facility] [address] [place], [address] CA,Total 9.0 mg/dL Normal 8.5-10.1 [facility] Comment on above: Performed By: #### L 500.2500, L100.0100 #### [facility] [address] [place], [address] Chloride [Moles/Vol] 105 mmol/L Normal 98-107 [facility] Comment on above: Performed By: #### L 500.2500, L100.0100 #### [facility] [address] [place], [address] CO2 [Moles/Vol] 26.0 mmol/L Normal 21.0-32.0 [facility] Comment on above: Performed By: #### L 500.2500, L100.0100 #### [facility] [address] [place], [address] Creatinine [Mass/Vol] 0.90 mg/dL Normal 0.55-1.02 [facility] Comment on above: Result Comment: The validity of the calculated GFR GFRAA in patients over 70 years has not been determined. Clinical correlation is essential. Performed By: #### L 500.2500, L100.0100 #### [facility] [address] [place], [address] ECRCL 95.02 ml/min Normal [facility] Comment on above: Performed By: #### L 500.2500, L100.0100 #### [facility] [address] [place], [address] EST GFR - AA 83 mL/min Normal >60 [facility] Comment on above: Result Comment: Afri can Panamanian GFR Calc Performed By: #### L 500.2500, L100.0100 #### [facility] [address] [place], [address] GAP 8 Normal 5-15 [facility] Comment on above: Performed By: #### L 500.2500, L100.0100 #### [facility] [address] [place], [address] GFR/1.73 sq M.predicted among non-blacks MDRD (S/P/Bld) [Vol rate/Area] 68 mL/min/{1.73_m2} Normal >60 [facility] Comment on above: Result Comment: Non- GFR Calc Performed By: #### L 500.2500, L100.0100 #### [facility] [address] [place], [address] Glucose [Mass/Vol] 132 mg/dL High 74-106 [facility] Comment on above: Result Comment: Fast ing Glucose result greater than or equal to 126 mg/dL suggests DIABETES MELLITUS per A.D.A. criteria. Performed By: #### L 500.2500, L100.0100 #### [facility] [address] [place], [address] Potassium [Moles/Vol] 3.9 mmol/L Normal 3.5-5.1 [facility] Comment on above: Performed By: #### L 500.2500, L100.0100 #### [facility] [address] [place], [address] Sodium [Moles/Vol] 139 mmol/L Normal 136-145 [facility] Comment on above: Performed By: #### L 500.2500, L100.0100 #### [facility] [address] [place], [address] Urea nitrogen [Mass/Vol] 16 mg/dL Normal 7-18 [facility] Comment on above: Performed By: #### L 500.2500, L100.0100 #### [facility] [address] [place], [address] CBC W/Diff, Automatedon 02-0 4-2024 Absolute Lymph 0.97 X10 3/uL Normal 0.83-4.51 [facility] Comment on above: Performed By: #### L 500.2500, L100.0100 #### [facility] [address] [place], [address] Absolute Neut 8.0 X10 3/uL High 2.0-7.7 [facility] Comment on above: Performed By: #### L 500.2500, L100.0100 #### [facility] [address] [place], [address] Basophils/100 WBC (Bld) 0.2 % Normal 0-1 [facility] Comment on above: Performed By: #### L 500.2500, L100.0100 #### [facility] [address] [place], [address] Eosinophils/100 WBC (Bld) 0.3 % Normal 0-5 [facility] Comment on above: Performed By: #### L 500.2500, L100.0100 #### [facility] [address] [place], [address] Erythrocyte distribution width (RBC) [Ratio] 17.1 % High 11.6-14.6 [facility] Comment on above: Performed By: #### L 500.2500, L100.0100 #### [facility] [address] [place], [address] Hematocrit (Bld) [Volume fraction] 42.0 % Normal 37-47 [facility] Comment on above: Performed By: #### L 500.2500, L100.0100 #### [facility] [address] [place], [address] Hemoglobin (Bld) [Mass/Vol] 12.6 g/dL Normal 12.0-15.0 [facility] Comment on above: Performed By: #### L 500.2500, L100.0100 #### [facility] [address] [place], [address] IG% 1.500 High 0.0-0.9 [facility] Comment on above: Result Comment: IG% - Immature Granulocytes (promyelocytes, myelocytes and metamyelocytes) > 1% indicates that a LEFT SHIFT is Present. Performed By: #### L 500.2500, L100.0100 #### [facility] [address] [place], [address] Lymphocytes/100 WBC (Bld) 10.2 % Low 19-41 [facility] Comment on above: Performed By: #### L 500.2500, L100.0100 #### [facility] [address] [place], [address] MCH (RBC) [Entitic mass] 26.7 pg Low 27.0-32.0 [facility] Comment on above: Performed By: #### L 500.2500, L100.0100 #### [facility] [address] [place], [address] MCHC (RBC) [Mass/Vol] 30.0 g/dL Low 32-36 [facility] Comment on above: Performed By: #### L 500.2500, L100.0100 #### [facility] [address] [place], [address] MCV (RBC) [Entitic vol] 89.0 fL Normal 81-99 [facility] Comment on above: Performed By: #### L 500.2500, L100.0100 #### [facility] [address] [place], [address] Monocytes/100 WBC (Bld) 4.0 % Normal 0-10 [facility] Comment on above: Performed By: #### L 500.2500, L100.0100 #### [facility] [address] [place], [address] Neutrophils/100 WBC (Bld) 83.8 % High 47-70 [facility] Comment on above: Performed By: #### L 500.2500, L100.0100 #### [facility] [address] [place], [address] Nucleated RBC (Bld) [#/Vol] 0 10*3/uL Normal 0-5 [facility] Comment on above: Performed By: #### L 500.2500, L100.0100 #### [facility] [address] [place], [address] Platelet mean volume (Bld) [Entitic vol] 9.9 fL Normal 6.2-12.0 [facility] Comment on above: Performed By: #### L 500.2500, L100.0100 #### [facility] [address] [place], [address] Platelets (Bld) [#/Vol] 308 10*3/uL Normal 150-450 [facility] Comment on above: Performed By: #### L 500.2500, L100.0100 #### [facility] [address] [place], [address] RBC (Bld) [#/Vol] 4.72 10*6/uL Normal 4.2-5.4 [facility] Comment on above: Performed By: #### L 500.2500, L100.0100 #### [facility] [address] [place], [address] RDW SD 55.2 fl High 35.1-43.9 [facility] Comment on above: Performed By: #### L 500.2500, L100.0100 #### [facility] [address] [place], [address] WBC (Bld) [#/Vol] 9.5 10*3/uL Normal 4.4-11.0 [facility] Comment on above: Performed By: #### L 500.2500, L100.0100 #### [facility] [address] [place], [address] Atypical lymphocyte percenta geOrdered By: Nany Kebede on 05-22-2024 Atypical Lymphocytes 1+ % [facility] Basic Metabolic Profile (BMP )on 05-22-2024 BUN/CRE 19.7 RATIO Normal 10-20 [facility] Comment on above: Performed By: #### L 500.2500, L100.0100 #### [facility] [address] [place], [address] CA,Total 9.1 mg/dL Normal 8.5-10.1 [facility] Comment on above: Performed By: #### L 500.2500, L100.0100 #### [facility] [address] [place], [address] Chloride [Moles/Vol] 105 mmol/L Normal 98-107 [facility] Comment on above: Performed By: #### L 500.2500, L100.0100 #### [facility] [address] [place], [address] CO2 [Moles/Vol] 25.0 mmol/L Normal 21.0-32.0 [facility] Comment on above: Performed By: #### L 500.2500, L100.0100 #### [facility] [address] [place], [address] Creatinine [Mass/Vol] 0.97 mg/dL Normal 0.55-1.02 [facility] Comment on above: Result Comment: The validity of the calculated GFR GFRAA in patients over 70 years has not been determined. Clinical correlation is essential. Performed By: #### L 500.2500, L100.0100 #### [facility] [address] [place], [address] ECRCL 88.16 ml/min Normal [facility] Comment on above: Performed By: #### L 500.2500, L100.0100 #### [facility] [address] [place], [address] EST GFR - AA 76 mL/min Normal >60 [facility] Comment on above: Result Comment: Afri can Panamanian GFR Calc Performed By: #### L 500.2500, L100.0100 #### [facility] [address] [place], [address] GAP 8 Normal 5-15 [facility] Comment on above: Performed By: #### L 500.2500, L100.0100 #### [facility] [address] [place], [address] GFR/1.73 sq M.predicted among non-blacks MDRD (S/P/Bld) [Vol rate/Area] 63 mL/min/{1.73_m2} Normal >60 [facility] Comment on above: Result Comment: Non- GFR Calc Performed By: #### L 500.2500, L100.0100 #### [facility] [address] [place], [address] Glucose [Mass/Vol] 132 mg/dL High 74-106 [facility] Comment on above: Result Comment: Fast ing Glucose result greater than or equal to 126 mg/dL suggests DIABETES MELLITUS per A.D.A. criteria. Performed By: #### L 500.2500, L100.0100 #### [facility] [address] [place], [address] Potassium [Moles/Vol] 3.9 mmol/L Normal 3.5-5.1 [facility] Comment on above: Performed By: #### L 500.2500, L100.0100 #### [facility] [address] [place], [address] Sodium [Moles/Vol] 139 mmol/L Normal 136-145 [facility] Comment on above: Performed By: #### L 500.2500, L100.0100 #### [facility] [address] [place], [address] Urea nitrogen [Mass/Vol] 19 mg/dL High 7-18 [facility] Comment on above: Performed By: #### L 500.2500, L100.0100 #### [facility] [address] [place], [address] CBC W/Diff, Automatedon ATYPICAL LYMPH 1+ Normal [facility] Comment on above: Performed By: #### L 500.2500, L100.0100 #### [facility] [address] [place], [address] Phosphoruson 05-22-2024 Phosphate [Mass/Vol] 3.0 mg/dL Normal 2.5-4.9 [facility] Comment on above: Performed By: #### L 500.4100, L500.4050 #### [facility] [address] [place], [address] Phosphorus measurementOrdere d By: Zelalem Ramires on 05-22-2024 Phosphorus Level 3.0 mg/dL 2.5-4.9 [facility] Basic Metabolic Profile (BMP )on 05-20-2024 BUN/CRE 15.7 RATIO Normal 10-20 [facility] Comment on above: Performed By: #### L 500.2500, L100.0100 #### [facility] [address] [place], [address] CA,Total 8.5 mg/dL Normal 8.5-10.1 [facility] Comment on above: Performed By: #### L 500.2500, L100.0100 #### [facility] [address] [place], [address] Chloride [Moles/Vol] 103 mmol/L Normal 98-107 [facility] Comment on above: Performed By: #### L 500.2500, L100.0100 #### [facility] [address] [place], [address] CO2 [Moles/Vol] 27.0 mmol/L Normal 21.0-32.0 [facility] Comment on above: Performed By: #### L 500.2500, L100.0100 #### [facility] [address] [place], [address] Creatinine [Mass/Vol] 1.08 mg/dL High 0.55-1.02 [facility] Comment on above: Result Comment: The validity of the calculated GFR GFRAA in patients over 70 years has not been determined. Clinical correlation is essential. Performed By: #### L 500.2500, L100.0100 #### [facility] [address] [place], [address] ECRCL 79.18 ml/min Normal [facility] Comment on above: Performed By: #### L 500.2500, L100.0100 #### [facility] [address] [place], [address] EST GFR - AA 67 mL/min Normal >60 [facility] Comment on above: Result Comment: Afri can Panamanian GFR Calc Performed By: #### L 500.2500, L100.0100 #### [facility] [address] [place], [address] GAP 7 Normal 5-15 [facility] Comment on above: Performed By: #### L 500.2500, L100.0100 #### [facility] [address] [place], [address] GFR/1.73 sq M.predicted among non-blacks MDRD (S/P/Bld) [Vol rate/Area] 55 mL/min/{1.73_m2} Low >60 [facility] Comment on above: Result Comment: Non- GFR Calc Performed By: #### L 500.2500, L100.0100 #### [facility] [address] [place], [address] Glucose [Mass/Vol] 153 mg/dL High 74-106 [facility] Comment on above: Result Comment: Fast ing Glucose result greater than or equal to 126 mg/dL suggests DIABETES MELLITUS per A.D.A. criteria. Performed By: #### L 500.2500, L100.0100 #### [facility] [address] [place], [address] Potassium [Moles/Vol] 3.9 mmol/L Normal 3.5-5.1 [facility] Comment on above: Performed By: #### L 500.2500, L100.0100 #### [facility] [address] [place], [address] Sodium [Moles/Vol] 136 mmol/L Normal 136-145 [facility] Comment on above: Performed By: #### L 500.2500, L100.0100 #### [facility] [address] [place], [address] Urea nitrogen [Mass/Vol] 17 mg/dL Normal 7-18 [facility] Comment on above: Performed By: #### L 500.2500, L100.0100 #### [facility] [address] [place], [address] CBC-Complete Blood Cnt No Di ffon 05-20-2024 Erythrocyte distribution width (RBC) [Ratio] 17.6 % High 11.6-14.6 [facility] Comment on above: Performed By: #### L 500.2500, L100.0100 #### [facility] [address] [place], [address] Hematocrit (Bld) [Volume fraction] 38.4 % Normal 37-47 [facility] Comment on above: Performed By: #### L 500.2500, L100.0100 #### [facility] [address] [place], [address] Hemoglobin (Bld) [Mass/Vol] 12.1 g/dL Normal 12.0-15.0 [facility] Comment on above: Performed By: #### L 500.2500, L100.0100 #### [facility] [address] [place], [address] MCH (RBC) [Entitic mass] 27.8 pg Normal 27.0-32.0 [facility] Comment on above: Performed By: #### L 500.2500, L100.0100 #### [facility] [address] [place], [address] MCHC (RBC) [Mass/Vol] 31.5 g/dL Low 32-36 [facility] Comment on above: Performed By: #### L 500.2500, L100.0100 #### [facility] [address] [place], [address] MCV (RBC) [Entitic vol] 88.3 fL Normal 81-99 [facility] Comment on above: Performed By: #### L 500.2500, L100.0100 #### [facility] [address] [place], [address] Platelet mean volume (Bld) [Entitic vol] 10.0 fL Normal 6.2-12.0 [facility] Comment on above: Performed By: #### L 500.2500, L100.0100 #### [facility] [address] [place], [address] Platelets (Bld) [#/Vol] 254 10*3/uL Normal 150-450 [facility] Comment on above: Performed By: #### L 500.2500, L100.0100 #### [facility] [address] [place], [address] RBC (Bld) [#/Vol] 4.35 10*6/uL Normal 4.2-5.4 [facility] Comment on above: Performed By: #### L 500.2500, L100.0100 #### [facility] [address] [place], [address] RDW SD 56.5 fl High 35.1-43.9 [facility] Comment on above: Performed By: #### L 500.2500, L100.0100 #### [facility] [address] [place], [address] WBC (Bld) [#/Vol] 3.3 10*3/uL Low 4.4-11.0 [facility] Comment on above: Performed By: #### L 500.2500, L100.0100 #### [facility] [address] [place], [address] 12 Lead EKGon 05-19-2024 12 Lead EKG [facility] [address] [place] [address] 12 Lead EKG 05/19/24 1554 MR#: [id number] Acct: [id number] Name: HONG KHAN Rep #: [id number] : 1965 58 From: Donavon Marquez MD Attending Dr: Dr. Zelalem Ramires DO Status: A DM IN Ordering Dr: Saad Price Date: 05/19/24 Location: [facility] Sex: F C Admitted: 05/19/24 Test Reason : SOB Blood Pressure : */* mmHG Vent. Rate : 97 BPM Atrial Rate : 97 BPM P-R Int : 138 ms QRS Dur : 82 ms QT Int : 350 ms P-R-T Axes : 72 71 79 degrees QTcB Int : 444 ms Normal sinus rhythm Normal ECG Confirmed by ALMA MONAHAN, DONAVON ([id number]), advertising editor HONG DIAZ ([id number]) on 05/22/2024 7:03:17 AM Referred By: Oli Marcelino Confirmed By: DONAVON MARQUEZ MD 05/22/24 0703 Date Donavon Marquez MD CC: SUPERVISOR DEHYDROGENATION-C Saad Price; Dr. Oli Marcelino DO; Dr. Nicky Covarrubias MD; Dr. Zelalem Ramires DO Signed Normal [facility] Basic Metabolic Profile (BMP )on 05-19-2024 BUN/CRE 13.6 RATIO Normal 10-20 [facility] Comment on above: Performed By: #### L 100.0100, L500.2500 #### [facility] [address] [place], [address] CA,Total 8.7 mg/dL Normal 8.5-10.1 [facility] Comment on above: Performed By: #### L 100.0100, L500.2500 #### [facility] [address] [place], [address] Chloride [Moles/Vol] 100 mmol/L Normal 98-107 [facility] Comment on above: Performed By: #### L 100.0100, L500.2500 #### [facility] [address] [place], [address] CO2 [Moles/Vol] 28.0 mmol/L Normal 21.0-32.0 [facility] Comment on above: Performed By: #### L 100.0100, L500.2500 #### [facility] [address] [place], [address] Creatinine [Mass/Vol] 1.25 mg/dL High 0.55-1.02 [facility] Comment on above: Result Comment: The validity of the calculated GFR GFRAA in patients over 70 years has not been determined. Clinical correlation is essential. Performed By: #### L 100.0100, L500.2500 #### [facility] [address] [place], [address] ECRCL 46.62 ml/min Normal [facility] Comment on above: Performed By: #### L 100.0100, L500.2500 #### [facility] [address] [place], [address] EST GFR - AA 57 mL/min Low >60 [facility] Comment on above: Result Comment: Afri can Panamanian GFR Calc Performed By: #### L 100.0100, L500.2500 #### [facility] [address] [place], [address] GAP 9 Normal 5-15 [facility] Comment on above: Performed By: #### L 100.0100, L500.2500 #### [facility] [address] [place], [address] GFR/1.73 sq M.predicted among non-blacks MDRD (S/P/Bld) [Vol rate/Area] 47 mL/min/{1.73_m2} Low >60 [facility] Comment on above: Result Comment: Non- GFR Calc Performed By: #### L 100.0100, L500.2500 #### [facility] [address] [place], [address] Glucose [Mass/Vol] 113 mg/dL High 74-106 [facility] Comment on above: Result Comment: Fast ing Glucose result from 100 to 125 mg/dL suggests IMPAIRED HOMEOSTASIS per A.D.A. criteria. Performed By: #### L 100.0100, L500.2500 #### [facility] [address] [place], [address] Potassium [Moles/Vol] 3.2 mmol/L Low 3.5-5.1 [facility] Comment on above: Performed By: #### L 100.0100, L500.2500 #### [facility] [address] [place], [address] Sodium [Moles/Vol] 137 mmol/L Normal 136-145 [facility] Comment on above: Performed By: #### L 100.0100, L500.2500 #### [facility] [address] [place], [address] Urea nitrogen [Mass/Vol] 17 mg/dL Normal 7-18 [facility] Comment on above: Performed By: #### L 100.0100, L500.2500 #### [facility] [address] [place], [address] CBC W/Diff, Automatedon -3 Absolute Lymph 0.93 X10 3/uL Normal 0.83-4.51 [facility] Comment on above: Performed By: #### L 100.0100, L500.2500 #### [facility] [address] [place], [address] Absolute Neut 3.3 X10 3/uL Normal 2.0-7.7 [facility] Comment on above: Performed By: #### L 100.0100, L500.2500 #### [facility] [address] [place], [address] Basophils/100 WBC (Bld) 0.4 % Normal 0-1 [facility] Comment on above: Performed By: #### L 100.0100, L500.2500 #### [facility] [address] [place], [address] Eosinophils/100 WBC (Bld) 0.2 % Normal 0-5 [facility] Comment on above: Performed By: #### L 100.0100, L500.2500 #### [facility] [address] [place], [address] Erythrocyte distribution width (RBC) [Ratio] 17.6 % High 11.6-14.6 [facility] Comment on above: Performed By: #### L 100.0100, L500.2500 #### [facility] [address] [place], [address] Hematocrit (Bld) [Volume fraction] 41.2 % Normal 37-47 [facility] Comment on above: Performed By: #### L 100.0100, L500.2500 #### [facility] [address] [place], [address] Hemoglobin (Bld) [Mass/Vol] 12.9 g/dL Normal 12.0-15.0 [facility] Comment on above: Performed By: #### L 100.0100, L500.2500 #### [facility] [address] [place], [address] IG% 0.800 Normal 0.0-0.9 [facility] Comment on above: Result Comment: IG% - Immature Granulocytes (promyelocytes, myelocytes and metamyelocytes) > 1% indicates that a LEFT SHIFT is Present. Performed By: #### L 100.0100, L500.2500 #### [facility] [address] [place], [address] Lymphocytes/100 WBC (Bld) 19.4 % Normal 19-41 [facility] Comment on above: Performed By: #### L 100.0100, L500.2500 #### [facility] [address] [place], [address] MCH (RBC) [Entitic mass] 27.6 pg Normal 27.0-32.0 [facility] Comment on above: Performed By: #### L 100.0100, L500.2500 #### [facility] [address] [place], [address] MCHC (RBC) [Mass/Vol] 31.3 g/dL Low 32-36 [facility] Comment on above: Performed By: #### L 100.0100, L500.2500 #### [facility] [address] [place], [address] MCV (RBC) [Entitic vol] 88.0 fL Normal 81-99 [facility] Comment on above: Performed By: #### L 100.0100, L500.2500 #### [facility] [address] [place], [address] Monocytes/100 WBC (Bld) 11.3 % High 0-10 [facility] Comment on above: Performed By: #### L 100.0100, L500.2500 #### [facility] [address] [place], [address] Neutrophils/100 WBC (Bld) 67.9 % Normal 47-70 [facility] Comment on above: Performed By: #### L 100.0100, L500.2500 #### [facility] [address] [place], [address] Nucleated RBC (Bld) [#/Vol] 0 10*3/uL Normal 0-5 [facility] Comment on above: Performed By: #### L 100.0100, L500.2500 #### [facility] [address] [place], [address] Platelet mean volume (Bld) [Entitic vol] 9.9 fL Normal 6.2-12.0 [facility] Comment on above: Performed By: #### L 100.0100, L500.2500 #### [facility] [address] [place], [address] Platelets (Bld) [#/Vol] 316 10*3/uL Normal 150-450 [facility] Comment on above: Performed By: #### L 100.0100, L500.2500 #### [facility] [address] [place], [address] RBC (Bld) [#/Vol] 4.68 10*6/uL Normal 4.2-5.4 [facility] Comment on above: Performed By: #### L 100.0100, L500.2500 #### [facility] [address] [place], [address] RDW SD 56.1 fl High 35.1-43.9 [facility] Comment on above: Performed By: #### L 100.0100, L500.2500 #### [facility] [address] [place], [address] WBC (Bld) [#/Vol] 4.8 10*3/uL Normal 4.4-11.0 [facility] Comment on above: Performed By: #### L 100.0100, L500.2500 #### [facility] [address] [place], [address] CTA Chest W/WO Contraston CTA Chest W/WO Contrast [facility] [address] [place] [address] CTA Chest W/WO Contrast MR#: [id number] Acct: [id number] Name: HONG KHAN Rep #: [id number] : 1965 F 58 From: Saad Ernst MD PCP: Dr. Nicky Covarrubias MD Status: REG ER Study: CTA Chest W/WO Contrast Date of Exam: 05/19/24 Exam# [id number] Ordering Dr: Saad Price SUPERVISOR DEHYDROGENATIONNadine PROCEDURE: CTA CHEST W/WO CONTRAST REASON FOR EXAM: Elevated dimer TECHNIQUE: CTA imaging of the chest with intravenous contrast. 3D reconstructions. CONTRAST: Yes COMPARISON: None. FINDINGS: Hardware: None. Lymph nodes: No mediastinal hilar or axillary lymphadenopathy. Heart: Normal heart size. No pericardial effusion. RV/LV Diameter Ratio: N/A Thoracic Aorta: No thoracic aortic aneurysm or dissection. Pulmonary Vessels: No large central pulmonary emboli are identified. Contrast timing is suboptimal for evaluation of more distal branches. Most Proximal Level of Embolus (if embolus present): N/A Lungs and Airways: 7 mm peripheral pulmonary nodule in the right lower lobe image 93 series 2. Bibasilar and lingular atelectasis. Pleura: No pleural effusion. No pneumothorax. Upper Abdomen: Visualized portions of the upper abdominal viscera are unremarkable. Bones: Bone windows are unremarkable. CT/CTA Chest W/WO Contrast IMPRESSION: 1. Limited study with no gross evidence of acute pulmonary emboli. 2. Right lower lobe pulmonary nodule. One or more dose reduction techniques were used (e.g., Automated exposure control, adjustment of the mA and/or kV according to patient size, use of iterative reconstruction technique). Reading Location: [facility] CC: TETO Price; Dr. 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 Normal [facility] Chest PA and Lateralon 05-19 Chest PA and Lateral [facility] Imaging Services [address] [place] [address] Chest PA and Lateral MR#: [id number] Acct: [id number] Name: HONG KHAN Rep #: [id number] : 1965 F 58 From: Thee Menezes PCP: Dr. Nicky Covarrubias MD Status: REG ER Study: Chest PA and Lateral Date of Exam: 05/19/24 Exam# [id number] Ordering Dr: Saad Price SUPERVISOR DEHYDROGENATION-C PROCEDURE: CHEST PA AND LATERAL REASON FOR EXAM: Cough. TECHNIQUE: Frontal and lateral views of the chest. COMPARISON: Chest x-ray of 05/16/2024. RAD/Chest PA and Lateral IMPRESSION: Mild thoracic spine degenerative changes are seen. Bilateral acromioclavicular joint degenerative changes are also noted. No acute osseous process is seen. Lungs appear clear of acute disease. No pleural effusion or pneumothorax is evident. The cardiomediastinal silhouette is within the normal range for age. No evidence of cardiomegaly. No evidence of acute cardiopulmonary disease. Reading Location: [address] CC: TETO Price; Dr. 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 Normal [facility] D-Dimer Quantitative (DVT/PE )on 05-19-2024 D-DIMER QUANT 0.68 FEU/ug/m Invalid Interpretation Code 0.27-0.49 [facility] Comment on above: Result Comment: D-Di araceli ELEVATED (>0.49): Additional studies and clinical assessments are indicated to conclude diagnosis of: Deep Vein Thrombosis (DVT) or Pulmonary Embolism (PE) RESULTS CALLED TO DAVID 05/19/24 170Mendoza Quinonez. REPORT READ BACK BY . SAME Performed By: #### L 100.0100, L500.2500 #### [facility] [address] [place], [address] D-dimer measurement for deep venous thrombosisOrdered By: Saad Price on 05-19-2024 D-Dimer Quantitative (PE/DVT) 0.68 FEU/ug/m High 0.27-0.49 [facility] Comment on above: D-Dimer ELEVATED (>0 .49): Additional studies and clinicalassessments are indicated to conclude diagnosis of:Deep Vein Thrombosis (DVT) or Pulmonary Embolism (PE)RESULTS CALLED TO DAVID 05/19/24 1709 Joana Quinonez.REPORT READ BACK BY . SAME Emergency Department Summary on 05-19-2024 Emergency Department Summary [facility] Medical Records Department [address] [place] [address] Emergency Department Summary 05/19/24 MR#: [id number] Acct: [id number] Name: HONG KAHN Rep #: [id number] : 1965 58 From: Vikash Blake DO PCP: Dr. Nicky Covarrubias MD Status:ADM IN Location: [address] History of Present Illness Chief Complaint: Shortness of Breath Narrative Narrative: Patient is a 58-year-old female with history of obesity, COPD, chronic kidney disease, migraine headaches who presents to the emergency department for shortness of breath. Patient states that she has intermittent bronchitis, over the last several weeks, she has been coughing. Patient states for the last 3 to 4 weeks, she has been seen, placed on steroids and having no relief. Over the last 24 hours the shortness of breath has been worse. She noticed that her oxygen saturation was in 80s at home. She is here for evaluation. Denies any specific pain. Denies any fever or chills. [facility] Medical History (Updated 05/19/24 @ 23:[address] Vikash Blake DO) Dyspnea Chronic cough Bronchitis Left upper quadrant pain PAC (premature atrial contraction) Knee bursitis Preventative health care Otitis Left ear pain Generalized anxiety disorder Morbid obesity History of smoking 30 or more pack years Health care maintenance Thyroid nodule Wears glasses Post-menopausal Sleep apnea Hypertension history of right elbow fracture Migraines History of pneumonia Frequent headaches Rheumatoid arthritis History of breast lump Seasonal allergies Hypertension Home Medications ???Medication ???Instructions ???Recorded ???Last Taken ???Type acetaminophen 325 mg capsule 325 mg PO ONCE PRN Pain 05/23/20 U nknown History loratadine 10 mg tablet (Claritin) 10 mg PO DAILY 05/23/20 Unknown History melatonin 5 mg capsule 5 mg PO QHS 05/23/20 Unknown Histo ry hydroxychloroquine 200 mg tablet 200 mg PO BID #60 tabs 06/03/22 Un known Rx (Plaquenil) folic acid 1 mg tablet 1 mg PO BID #90 tabs 06/15/22 Unkn own Rx methotrexate sodium 2.5 mg tablet 20 mg PO QWEEK 09/24/22 Unknown H istory albuterol sulfate 90 mcg/actuation 2 puff inhalation Q6H PRN Unknown Rx aerosol inhaler shortness of breath or wheezing #8.5 grams rizatriptan 10 mg tablet 10 mg PO ONCE PRN migraine headach e 12/23/23 Unknown History amlodipine 5 mg tablet 5 mg PO DAILY #90 TABLETS 01/31/24 Unknown Rx sertraline 50 mg tablet 50 mg PO DAILY #90 TABLETS 4 Unknown Rx benzonatate 100 mg capsule 100 mg PO BID-TID PRN cough #90 Unknown Rx caps fluticasone furoate 100 1 inh inhalation Q24H #60 ea 05/15 Unknown Rx mcg-vilanterol 25 mcg/dose inhalation powder (Breo Ellipta) buspirone 7.5 mg tablet 7.5 mg PO BID 05/19/24 Unknown His tory prednisone 10 mg tablets in a dose See Rx Instructions PO PER PKG D IR 05/19/24 Unknown Rx pack #48 tabs Allergy/AdvReac Type Severity Reaction Status Date / Time hydrocodone bitartrate (From Allergy Rash Verified 05/19/24 15:32 Vicodin) erythromycin base AdvReac Vomiting Verified 05/19/24 15:32 Penicillins (PCN) AdvReac Upset Verified 05/19/24 15:32 Stomach Family History Mother Anxiety and depression Arthritis Father Hypertension Grandmother Osteoporosis Surgical History Hx of colonoscopy History of endometrial ablation History of carpal tunnel surgery History of breast biopsy S/P thyroid biopsy Social History household members: spouse housing: house current occupational status: employed 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 [employer] Smoking Status: Former smoker quit date: 04/19/14 Tobacco: How many years used: 25 how long ago did patient quit smokin04/19/2016 alcohol intake: never substance use type: does not use what type of physical activity do you participate in: none seatbelt use: always do you feel safe at home: Yes ROS ROS ED ROS Narrative Constitutional: Negative for fever, chills, weight loss, weakness Eyes: Negative for vision loss, vision change, double vision ENT: Negative for any sore throat, ear pain, congestion Cardiovascular: Negative for any chest pain, tightness, palpitations Respiratory: Positive for any cough, sputum production, dyspnea, dyspnea on exertion, orthopnea Gastrointestinal: Negative for any abdominal pain, nausea, vomiting, diarrhea, constipation, blood in stool, blood in vomit : Negative for any urinary frequency, dysuria, retention, blood in urine Muscle skeletal: Negative for any neck pain, back pain. Positive for myalgias Neurological: Negative for any headache, sy (more content not included)... Normal [facility] H AND P Exam - Hospitaliston 05-19-2024 H&P Exam - Hospitalist [facility] Medical Records Department [address] [place] [address] H P Exam - Hospitalist 05/19/24 1808 MR#: [id number] Acct: [id number] Name: HONG KHAN Rep #: [id number] : 1965 58 From: Oli Marcelino DO PCP: Dr. Nicky Covarrubias MD Status:ADM IN Location: [facility] [id number] HPI - General General Date of Admission: 05/19/24 Date of Service: 05/19/24 Chief Complaint: URI symptoms with shortness of breath HPI Narrative HONG KHAN, is a 58 F who presented to [facility] ED on 05/19/2024 with URI symptoms and shortness of breath. Found to be positive for influenza A. Patient is a former smoker, quit about 15 years ago. No formal COPD diagnosis, does not wear oxygen at home. States she has had an ongoing cough and fatigue for the past few weeks. Has had minimal appetite and not eating or drinking much. In the ED she was tachycardic to the 110s to 120s and was requiring 3 L nasal cannula to maintain oxygen saturations greater than 90%. She was given 2 breathing treatments with improvement in her shortness of breath and wheezing but she did remain hypoxic. Hospitalist was then contacted for admission. I saw the patient at bedside in the ED, and son present. Patient was mildly fatigued appearing but otherwise sitting up comfortably in bed, conversing normally, in no acute distress. She is breathing comfortably on 3 L nasal cannula. She had mild upper airway wheezing noted bilaterally and mild to moderately diminished breath sounds, no crackles noted on exam. She was dry appearing on exam. She denied any fevers or chills. Had a dry cough, denied sputum production. No other acute concerns at this time. [facility] Medical History (Updated 05/19/24 @ 18:27 by TETO Melvin) Dyspnea Chronic cough Bronchitis Left upper quadrant pain PAC (premature atrial contraction) Knee bursitis Preventative health care Otitis Left ear pain Generalized anxiety disorder Morbid obesity History of smoking 30 or more pack years Health care maintenance Thyroid nodule Wears glasses Post-menopausal Sleep apnea Hypertension history of right elbow fracture Migraines History of pneumonia Frequent headaches Rheumatoid arthritis History of breast lump Seasonal allergies Hypertension Home Medications ???Medication ???Instructions ???Recorded ???Last Taken ???Type acetaminophen 325 mg capsule 325 mg PO ONCE PRN Pain 05/23/20 U nknown History loratadine 10 mg tablet (Claritin) 10 mg PO DAILY 05/23/20 Unknown History melatonin 5 mg capsule 5 mg PO QHS 05/23/20 Unknown Histo ry hydroxychloroquine 200 mg tablet 200 mg PO BID #60 tabs 06/03/22 Un known Rx (Plaquenil) folic acid 1 mg tablet 1 mg PO BID #90 tabs 06/15/22 Unkn own Rx methotrexate sodium 2.5 mg tablet 20 mg PO QWEEK 09/24/22 Unknown H istory albuterol sulfate 90 mcg/actuation 2 puff inhalation Q6H PRN Unknown Rx aerosol inhaler shortness of breath or wheezing #8.5 grams rizatriptan 10 mg tablet 10 mg PO ONCE PRN migraine headach e 12/23/23 Unknown History amlodipine 5 mg tablet 5 mg PO DAILY #90 TABLETS 01/31/24 Unknown Rx sertraline 50 mg tablet 50 mg PO DAILY #90 TABLETS 4 Unknown Rx benzonatate 100 mg capsule 100 mg PO BID-TID PRN cough #90 Unknown Rx caps fluticasone furoate 100 1 inh inhalation Q24H #60 ea 05/15 Unknown Rx mcg-vilanterol 25 mcg/dose inhalation powder (Breo Ellipta) buspirone 7.5 mg tablet 7.5 mg PO BID 05/19/24 Unknown His tory prednisone 10 mg tablets in a dose See Rx Instructions PO PER PKG D IR 05/19/24 Unknown Rx pack #48 tabs Allergy/AdvReac Type Severity Reaction Status Date / Time hydrocodone bitartrate (From Allergy Rash Verified 05/19/24 15:32 Vicodin) erythromycin base AdvReac Vomiting Verified 05/19/24 15:32 Penicillins (PCN) AdvReac Upset Verified 05/19/24 15:32 Stomach Family History Mother Anxiety and depression Arthritis Father Hypertension Grandmother Osteoporosis Surgical History Hx of colonoscopy History of endometrial ablation History of carpal tunnel surgery History of breast biopsy S/P thyroid biopsy Social History household members: spouse housing: house current occupational status: employed 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 Normal [facility] Influenza virus A and B and SARS-CoV-2 (COVID-19) and Respiratory syncytial virus RNAOrdered By: Saad Price on 05-19-2024 SARS-CoV-2 (COVID-19) RNA DEB+probe Ql (Unsp spec) Influenzae A Abnormal [facility] M100.678on 05-19-2024 M100.678 Normal Reference Ran ge = Negative FLUABV+SARS-CoV-2+RSV Pnl Resp DEB+probe GeneXpert Instrument, PCR method FLUABV+SARS-CoV-2+RSV Pnl Resp DEB+probe Copy of report sent to Infection Control Printer [id number] 05/19/24 1753 MLOLLO. FLUABV+SARS-CoV-2+RSV Pnl Resp DEB+probe RESULTS CALLED TO AMAYA MORFIN 05/19/24 1753 Karina Terry. REPORT READ BACK BY SAME. SARS-CoV-2 (COVID 19) Negative INFLUENZA A A Positive A INFLUENZA B Negative RSV PCR Negative INFLUENZAE A Normal [facility] Comment on above: Performed By: #### L 500.4100, L500.4050 #### [facility] [address] [facility] [place], [address] Magnesiumon 05-19-2024 Magnesium [Mass/Vol] 2.4 mg/dL Normal 1.6-2.6 [facility] Comment on above: Performed By: #### L 501.2300, L501.5200 #### [facility] [address] [facility] [place], [address] Magnesium measurementOrdered By: Oli Marcelino on 05-19-2024 Magnesium [Mass/Vol] 2.4 mg/dL 1.6-2.6 [facility] Phosphoruson 05-19-2024 Phosphate [Mass/Vol] 2.4 mg/dL Low 2.5-4.9 [facility] Comment on above: Performed By: #### L 501.2300, L501.5200 #### [facility] [address] [facility] [place], [address] Chest PA and Lateralon 05-16 Chest PA and Lateral [facility] Imaging Services [address] [place] [address] Chest PA and Lateral MR#: [id number] Acct: [id number] Name: HONG KHAN Rep #: [id number] : 1965 F 58 From: Thee Menezes PCP: Dr. Nicky Covarrubias MD Status: REG CLI Study: Chest PA and Lateral Date of Exam: 05/16/24 Exam# [id number] Ordering Dr: Nicky Covarrubias MD PROCEDURE: CHEST PA AND LATERAL TECHNIQUE: Three-view PA and lateral chest. COMPARISON: None. RAD/Chest PA and Lateral IMPRESSION: Mild thoracic spine degenerative changes are noted. The cardiomediastinal silhouette is within the normal range for age. Lungs are moderately hyperinflated with increased interstitial markings, consistent with chronic lung disease. No acute pneumonic process is noted. No pleural effusion or pneumothorax is seen. h Reading Location: [id number] CC: Dr. 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 Normal [facility] Albumin to globulin ratioOrd ered By: Nicky Covarrubias on 04-27-2024 Albumin/Globulin [Mass ratio] 0.7 {ratio} Low 0.9-2.4 [facility] Bilirubin, totalOrdered By: Nicky Covarrubias on 04-27-2024 Bilirubin [Mass/Vol] 0.50 mg/dL 0.20-1.00 [facility] Comment on above: For patients on eltr ombopag therapy, use of Dimension [place] TBIL is not recommended. Blood urea nitrogen (BUN)/cr eatinine ratioOrdered By: Nicky Covarrubias on 04-27-2024 Urea nitrogen/Creatinine [Mass ratio] 10.3 mg/mg 10-20 [facility] Carbon dioxide measurementOr dered By: Nicky Covarrubias on 04-27-2024 CO2 [Moles/Vol] 30.0 mmol/L 21.0-32.0 [facility] Chloride measurementOrdered By: Nicky Covarrubias on 04-27-2024 Chloride [Moles/Vol] 104 mmol/L 98-107 [facility] Comprehensive Metabolic Prof ilon 04-27-2024 Albumin [Mass/Vol] 3.4 g/dL Normal 3.2-5.0 [facility] Comment on above: Performed By: #### L 500.4108, L500.4050 #### [facility] [address] [place] [address]. [place], [address] Albumin/Globulin [Mass ratio] 0.7 {ratio} Low 0.9-2.4 [facility] Comment on above: Performed By: #### L 500.4100, L500.4050 #### [facility] [address] [place], [address] ALK P 97 U/L Normal 45-117 [facility] Comment on above: Performed By: #### L 500.4100, L500.4050 #### [facility] [address] [place], [address] ALT [Catalytic activity/Vol] 30 U/L Normal 13-56 [facility] Comment on above: Performed By: #### L 500.4100, L500.4050 #### [facility] [address] [place], [address] AST [Catalytic activity/Vol] 25 U/L Normal 15-37 [facility] Comment on above: Performed By: #### L 500.4100, L500.4050 #### [facility] [address] [place], [address] Bilirubin [Mass/Vol] 0.50 mg/dL Normal 0.20-1.00 [facility] Comment on above: Result Comment: For patients on eltrombopag therapy, use of Dimension [place] TBIL is not recommended. Performed By: #### L 500.4100, L500.4050 #### [facility] [address] [place], [address] BUN/CRE 10.3 RATIO Normal 10-20 [facility] Comment on above: Performed By: #### L 500.4100, L500.4050 #### [facility] [address] [place], [address] CA,Total 9.6 mg/dL Normal 8.5-10.1 [facility] Comment on above: Performed By: #### L 500.4100, L500.4050 #### [facility] [address] [place], [address] Chloride [Moles/Vol] 104 mmol/L Normal 98-107 [facility] Comment on above: Performed By: #### L 500.4100, L500.4050 #### [facility] [address] [place], [address] CO2 [Moles/Vol] 30.0 mmol/L Normal 21.0-32.0 [facility] Comment on above: Performed By: #### L 500.4100, L500.4050 #### [facility] [address] [place], [address] Creatinine [Mass/Vol] 0.97 mg/dL Normal 0.55-1.02 [facility] Comment on above: Result Comment: The validity of the calculated GFR GFRAA in patients over 70 years has not been determined. Clinical correlation is essential. Performed By: #### L 500.4100, L500.4050 #### [facility] [address] [place], [address] EST GFR - AA 76 mL/min Normal >60 [facility] Comment on above: Result Comment: Afri can Panamanian GFR Calc Performed By: #### L 500.4100, L500.4050 #### [facility] [address] [place], [address] GAP 4 Low 5-15 [facility] Comment on above: Performed By: #### L 500.4100, L500.4050 #### [facility] [address] [place], [address] GFR/1.73 sq M.predicted among non-blacks MDRD (S/P/Bld) [Vol rate/Area] 63 mL/min/{1.73_m2} Normal >60 [facility] Comment on above: Result Comment: Non- GFR Calc Performed By: #### L 500.4100, L500.4050 #### [facility] [address] [place], [address] Globulin (S) [Mass/Vol] 5.1 g/dL High 2.2-4.2 [facility] Comment on above: Performed By: #### L 500.4100, L500.4050 #### [facility] [address] [place], [address] Glucose [Mass/Vol] 95 mg/dL Normal 74-106 [facility] Comment on above: Performed By: #### L 500.4100, L500.4050 #### [facility] [address] [place], [address] Potassium [Moles/Vol] 3.9 mmol/L Normal 3.5-5.1 [facility] Comment on above: Performed By: #### L 500.4100, L500.4050 #### [facility] [address] [place], [address] Sodium [Moles/Vol] 138 mmol/L Normal 136-145 [facility] Comment on above: Performed By: #### L 500.4100, L500.4050 #### [facility] [address] [place], [address] T PROT 8.5 g/dL High 6.4-8.2 [facility] Comment on above: Performed By: #### L 500.4100, L500.4050 #### [facility] [address] [place], [address] Urea nitrogen [Mass/Vol] 10 mg/dL Normal 7-18 [facility] Comment on above: Performed By: #### L 500.4100, L500.4050 #### [facility] [address] [place], [address] Estimated glomerular filtrat ion rate (GFR) AmericanOrdered By: Nicky Covarrubias on 04-27-2024 Estimated GFR (MDRD) Amer 76 mL/min >60 [facility] Comment on above: GFR Calc Glomerular filtration rate ( GFR) estimationOrdered By: Nicky Covarrubias on 04-27-2024 Estimated GFR (MDRD) Non-Af Amer 63 mL/min >60 [facility] Comment on above: Non- GFR Calc Glucose measurementOrdered B y: Nicky Covarrubias on 04-27-2024 Glucose [Mass/Vol] 95 mg/dL 74-106 [facility] High density lipoprotein (HD L) measurementOrdered By: Nicky Covarrubias on 04-27-2024 Cholesterol in HDL [Mass/Vol] 67 mg/dL >40 [facility] Comment on above: The drugs N-Acetylcy steine and Metamizole may falsely depress this assay. Reference Range HDL <40 mg/dL Low HDL Cholesterol HDL >or= 60 mg/dL High HDL Cholesterol Internal Medicine Office Vis iton 04-27-2024 Internal Medicine Office Visit [facility] [place] [address] [place] [address] OFFICE VISIT Date of Service: 04/27/24 MR#: [id number] Acct: [id number] Name: HONG KHAN Rep #: [id number] : 1965 Provider: Dr. Nicky moore MD Age/Sex: 58/F Location: [facility] Status: Signed Intake Vital Signs 12/23/23 14:47 04/27/24 14:52 Height 5 ft 7 in 5 ft 7 in Weight: 302 lb BMI 47.2 BP 130/84 H Blood Pressure Location Lt brachial Position Sitting Respiration 18 Pulse 98 Pulse Source Monitor Temp 97.3 F L Temp Source Temporal Pulse Oximetry (%) 94 Oxygen Delivery Method room air Intake Visit Reasons: 4 M FU Chief Complaint: 4 M FU Is patient in pain?: No Allergies hydrocodone bitartrate (From Vicodin) Allergy (Verified 12/23/23 14:49) Rash erythromycin base Adverse Reaction (Verified 12/23/23 14:49) Vomiting Penicillins (PCN) Adverse Reaction (Verified 12/23/23 14:49) Upset Stomach Medications ???Medication ???Instructions ???Recorded ???Confirmed ???Type acetaminophen 325 mg capsule 325 mg PO ONCE PRN Pain 05/23/20 04/27/24 History loratadine 10 mg tablet (Claritin) 10 mg PO DAILY 05/23/20 04/27/24 History melatonin 5 mg capsule 5 mg PO QHS 05/23/20 04/27/24 History hydroxychloroquine 200 mg tablet 200 mg PO BID #60 tabs 06/03/22 04/27/24 Rx (Plaquenil) folic acid 1 mg tablet 1 mg PO BID #90 tabs 06/15/22 04/27/24 Rx methotrexate sodium 2.5 mg tablet 20 mg PO QWEEK 09/24/22 04/27/24 History albuterol sulfate 90 mcg/actuation 2 puff inhalation Q6H PRN 09/23/23 04/27/24 Rx aerosol inhaler shortness of breath or wheezing #8.5 grams rizatriptan 10 mg tablet 10 mg PO ONCE PRN 12/23/23 04/27/24 History amlodipine 5 mg tablet 5 mg PO DAILY #90 TABLETS 01/31/24 04/27/24 Rx sertraline 50 mg tablet 50 mg PO DAILY #90 TABLETS 01/31/24 04/27/24 Rx albuterol 90 mcg-budesonide 80 2 inh inhalation TID PRN shortness 04/27/24 04/27/24 Rx mcg/actuation HFA aerosol inhaler of breath #10.7 grams (Airsupra) benzonatate 100 mg capsule 100 mg PO BID-TID PRN cough #90 04/27/24 04/27/24 Rx caps prednisone 20 mg tablet 40 mg (2 x 20 mg) PO QDAY #10 tabs 04/27/24 04/27/24 Rx Nurse's Note: pt reports that she had a cough that started 3 weeks ago and she feels tired all the time has complaint increase from usual shortness of breath with exertion since not feeling well states she did not take a covid test. [facility] Medical History (Updated 04/27/24 @ 15:[address] Nicky Covarrubias MD) Chronic cough Bronchitis Left upper quadrant pain PAC (premature atrial contraction) Knee bursitis Preventative health care Otitis Left ear pain Generalized anxiety disorder Morbid obesity History of smoking 30 or more pack years Health care maintenance Thyroid nodule Wears glasses Post-menopausal Sleep apnea Hypertension history of right elbow fracture Migraines History of pneumonia Frequent headaches Rheumatoid arthritis History of breast lump Seasonal allergies Hypertension Surgical History Hx of colonoscopy History of endometrial ablation History of carpal tunnel surgery History of breast biopsy S/P thyroid biopsy Family History Mother Anxiety and depression Arthritis Father Hypertension Grandmother Osteoporosis Social History household members: spouse housing: house current occupational status: employed 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 Also has some concerns. She reports a 3-week history of cough. Wheezing and congestion. History of bronchitis. Has been using her albuterol but does not think it is sufficient. No chills, fever or otherwise feeling of unwell. History of hypertension, blood pressure today is at 130/84 mmHg. Currently on amlodipine which she is taking as prescribed. Also history of anxiety, currently on Zoloft. No concerns reported. Continues to follow-up closely with her studio assistant at the [facility]. She states that she has had labs done with no concerns noted. Currently on methotrexate and Plaquenil. ROS Const Constitutional: No body ache, chills, excessive sweating, fatigue, fever(s), frequent falls, headache(s), snoring, weight change, sleep p (more content not included)... Normal [facility] - Chemistry and C hemistry - challengeOrdered By: Nicky Covarrubias on 04-27-2024 AST [Catalytic activity/Vol] 25 U/L 15-37 [facility] Lipid Profileon 04-27-2024 Cholesterol [Mass/Vol] 179 mg/dL Normal 200 [facility] Comment on above: Result Comment: <200 mg/dL Desirable 200-240 mg/dL Borderline >240 mg/dL High Risk Performed By: #### L 500.4100, L500.4050 #### [facility] [address] [place], [address] Cholesterol in HDL [Mass/Vol] 67 mg/dL Normal [facility] Comment on above: Result Comment: The drugs N-Acetylcysteine and Metamizole may falsely depress this assay. Reference Range HDL <40 mg/dL Low HDL Cholesterol HDL >or= 60 mg/dL High HDL Cholesterol Performed By: #### L 500.4100, L500.4050 #### [facility] [address] [place], [address] Cholesterol in LDL [Mass/Vol] 95 mg/dL Normal 0-130 [facility] Comment on above: Performed By: #### L 500.4100, L500.4050 #### [facility] [address] [place], [address] Cholesterol in VLDL [Mass/Vol] 17 mg/dL Normal 5-40 [facility] Comment on above: Performed By: #### L 500.4100, L500.4050 #### [facility] [address] [place], [address] Triglyceride [Mass/Vol] 86 mg/dL Normal [facility] Comment on above: Result Comment: The drugs N-Acetylcysteine and Metamizole may falsely depress this assay. Serum Triglycerides Reference Interval Normal <150 mg/dL Borderline high 150 - 199 mg/dL High 200 - 499 mg/dL Very High > or = 500 mg/dL Performed By: #### L 500.4100, L500.4050 #### [facility] [address] [place], [address] Low density lipoprotein (LDL ) cholesterol measurementOrdered By: Nicky Covarrubias on 04-27-2024 Cholesterol in LDL [Mass/Vol] 95 mg/dL 0-130 [facility] Potassium measurementOrdered By: Nicky Covarrubias on 04-27-2024 Potassium [Moles/Vol] 3.9 mmol/L 3.5-5.1 [facility] Serum anion gap measurementO rdered By: Nicky Covarrubias on 04-27-2024 Anion gap [Moles/Vol] 4 mmol/L Low 5-15 [facility] Serum globulin measurementOr dered By: Nicky Covarrubias on 04-27-2024 Globulin (S) [Mass/Vol] 5.1 g/dL High 2.2-4.2 [facility] Serum or plasma alanine sotomayor otransferase (ALT) measurementOrdered By: Nicky Covarrubias on 04-27-2024 ALT [Catalytic activity/Vol] 30 U/L 13-56 [facility] Serum or plasma albumin roxi urement (mass/volume)Ordered By: Nicky Covarrubias on 04-27-2024 Albumin [Mass/Vol] 3.4 g/dL 3.2-5.0 [facility] Serum or plasma alkaline amanda sphatase measurementOrdered By: Nicky Covarrubias on 04-27-2024 ALP [Catalytic activity/Vol] 97 U/L 45-117 [facility] Serum or plasma calcium roxi urement (mass/volume)Ordered By: Nicky Covarrubias on 04-27-2024 Calcium [Mass/Vol] 9.6 mg/dL 8.5-10.1 [facility] Serum or plasma cholesterol measurement (mass/volume)Ordered By: Nicky Covarrubias on 04-27-2024 Cholesterol [Mass/Vol] 179 mg/dL <200 [facility] Comment on above: <200 mg/dL Desirable 200-240 mg/dL Borderline >240 mg/dL High Risk Serum or plasma creatinine m easurement (mass/volume)Ordered By: Nicky oCvarrubias on 04-27-2024 Creatinine [Mass/Vol] 0.97 mg/dL 0.55-1.02 [facility] Comment on above: The validity of the calculated GFR & GFRAA in patients over 70 years has not been determined. Clinical correlation is essential. Serum or plasma urea nitroge n measurement (mass/volume)Ordered By: Nicky Covarrubias on 04-27-2024 Urea nitrogen [Mass/Vol] 10 mg/dL 7-18 [facility] Sodium levelOrdered By: Olu lemuswil Marci on 04-27-2024 Sodium [Moles/Vol] 138 mmol/L 136-145 [facility] Total proteinOrdered By: Marvin dariusitalo Covarrubias on 04-27-2024 Protein [Mass/Vol] 8.5 g/dL High 6.4-8.2 [facility] Triglycerides measurementOrd ered By: Nicky Covarrubias on 04-27-2024 Triglyceride [Mass/Vol] 86 mg/dL <199 [facility] Comment on above: The drugs N-Acetylcy steine and Metamizole may falsely depress this assay.Serum Triglycerides Reference Interval Normal <150 mg/dL Borderline high 150 - 199 mg/dL High 200 - 499 mg/dL Very High > or = 500 mg/dL Very low density lipoprotein (VLDL) cholesterol measurementOrdered By: Nicky Covarrubias on 04-27-2024 VLDL Cholesterol 17 mg/dL 5-40 [facility] Internal Medicine Office Vis iton 12-23-2023 Internal Medicine Office Visit [facility] [address] [place] [address] [place] [address] OFFICE VISIT Date of Service: 12/23/23 MR#: [id number] Acct: [id number] Name: HONG KHAN Rep #: [id number] : 1965 Provider: Dr. Nicky moore MD Age/Sex: 58/F Location: [facility] Status: Signed Intake Vital Signs 09/23/23 15:20 11/18/23 10:13 12/23/23 14:47 Height 5 ft 7 in 5 ft 7 in 5 ft 7 in Weight: 297 lb BMI 46.5 BP 134/80 H Blood Pressure Location Lt brachial Position Sitting Respiration 17 Pulse 97 Pulse Source Monitor Temp 97.4 F L Temp Source Temporal Pulse Oximetry (%) 99 Oxygen Delivery Method room air Intake Visit Reasons: 3 M FU Chief Complaint: 3 M FU Is patient in pain?: Yes (3 LUQ) Allergies hydrocodone bitartrate (From Vicodin) Allergy (Verified 12/23/23 14:49) Rash erythromycin base Adverse Reaction (Verified 12/23/23 14:49) Vomiting Penicillins (PCN) Adverse Reaction (Verified 12/23/23 14:49) Upset Stomach Medications ???Medication ???Instructions ???Recorded ???Confirmed ???Type acetaminophen 325 mg capsule 325 mg PO ONCE PRN Pain 05/23/20 12/23/23 History loratadine 10 mg tablet (Claritin) 10 mg PO DAILY 05/23/20 12/23/23 History melatonin 5 mg capsule 5 mg PO QHS 05/23/20 12/23/23 History hydroxychloroquine 200 mg tablet 200 mg PO BID #60 tabs 06/03/22 12/23/23 Rx (Plaquenil) folic acid 1 mg tablet 1 mg PO BID #90 tabs 06/15/22 12/23/23 Rx methotrexate sodium 2.5 mg tablet 20 mg PO QWEEK 09/24/22 12/23/23 History albuterol sulfate 90 mcg/actuation 2 puff inhalation Q6H PRN 09/23/23 12/23/23 Rx aerosol inhaler shortness of breath or wheezing #8.5 grams amlodipine 5 mg tablet 5 mg PO DAILY #90 TABLETS 11/09/23 12/23/23 Rx sertraline 50 mg tablet 50 mg PO DAILY #90 TABLETS 11/09/23 12/23/23 Rx rizatriptan 10 mg tablet 10 mg PO ONCE PRN 12/23/23 History PFSH Medical History (Updated 12/23/23 @ 16:[address] Nicky Covarrubias MD) Left upper quadrant pain PAC (premature atrial contraction) Knee bursitis Preventative health care Otitis Left ear pain Generalized anxiety disorder Morbid obesity History of smoking 30 or more pack years Health care maintenance Thyroid nodule Wears glasses Post-menopausal Sleep apnea Hypertension history of right elbow fracture Migraines History of pneumonia Frequent headaches Rheumatoid arthritis History of breast lump Seasonal allergies Hypertension Surgical History Hx of colonoscopy History of endometrial ablation History of carpal tunnel surgery History of breast biopsy S/P thyroid biopsy Family History Mother Anxiety and depression Arthritis Father Hypertension Grandmother Osteoporosis Social History household members: spouse housing: house current occupational status: employed 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 Also has some concerns. She reports intermittent left upper abdominal pain. No known precipitating factor and pushing on it reproduces it as well as helps relieve some of the discomfort associated with it. No association with food, no change in bowel habit. Feels well otherwise. History of hypertension, blood pressure today at 134/80 mmHg. She reports compliance with her medication. No chest pain, palpitation or shortness of breath. Other chronic medical conditions are stable. ROS Const Constitutional: No body ache, chills, excessive sweating, fatigue, fever(s), frequent falls, headache(s), snoring, weight change, sleep problems, abnormal sleep pattern or change in appetite Eyes Eyes: No blurry vision, change in vision, bulging eyes, floaters, visual disturbances, eye pain or Light sensitivity ENT ENT: No abnormal hearing, ear or mastoid pain, tinnitus, balance problems, nasal congestion, headache(s), neck pain or sore throat Resp Respiratory: No cough, excessive phlegm production, pain on inspiration, shortness of breath, snoring or wheezing Cardio Cardiology: No chest pain at rest, chest pain with exertion, excessive sweating, shortness of breath, dyspnea on exertion, lightheadedness, orthopnea or palpitations Gastro GI: Positive for abdominal pain (LUQ ABD pain ) and other; No change (more content not included)... Normal [facility] Urgent Care Visit Reporton 0 11-18-2023 Urgent Care Visit Report [facility] [address] , [address] [place] [address] OFFICE VISIT Date of Service: 11/18/23 MR#: [id number] Acct: [id number] Name: HONG KHAN Rep #: [id number] : 1965 Provider: SHRAONA Jackson Age/Sex: 57/F Location: [facility] Status: Signed Intake Vital Signs 09/23/23 15:20 11/18/23 10:13 11/18/23 11:52 Height 5 ft 7 in 5 ft 7 in BP 130/74 H Blood Pressure Location Rt brachial Position Sitting Respiration 17 Pulse 108 H Pulse Source NIBP Temp 98.4 F Temp Source Temporal Pulse Oximetry (%) 94 Oxygen Delivery Method room air Intake Visit Reasons: SKIN INFECTION Chief Complaint: left groin rash Sightseeing Guide Required: No Is patient in pain?: Yes Allergies hydrocodone bitartrate (From Vicodin) Allergy (Verified 11/18/23 11:52) Rash erythromycin base Adverse Reaction (Verified 11/18/23 11:52) Vomiting Penicillins (PCN) Adverse Reaction (Verified 11/18/23 11:52) Upset Stomach Is last menstrual period known: No Post menopausal: Yes Patient : No Have you fallen in the past year?: No Nurse's Note: left groin rash x 1 week. red, painful, spreading to pt vaginal area PFSH Medical History (Updated 11/18/23 @ 12:19 by SHARONA oJe) PAC (premature atrial contraction) Knee bursitis Preventative health care Otitis Left ear pain Generalized anxiety disorder Morbid obesity History of smoking 30 or more pack years Health care maintenance Thyroid nodule Wears glasses Post-menopausal Sleep apnea Hypertension history of right elbow fracture Migraines History of pneumonia Frequent headaches Rheumatoid arthritis History of breast lump Seasonal allergies Hypertension Surgical History Hx of colonoscopy History of endometrial ablation History of carpal tunnel surgery History of breast biopsy S/P thyroid biopsy Family History Mother Anxiety and depression Arthritis Father Hypertension Grandmother Osteoporosis Social History (Updated 09/23/23 @ 15:20 by Erin Todd MA) household members: spouse housing: house current occupational status: employed 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 Patient states that this has been ongoing for the past week and worsening. She has not tried any medications for this. She does state having issues with skin rashes in the past. She denies fever, chills, sweats. No nausea, vomiting or diarrhea. No other associated symptoms or alleviating/aggravatin g factors. ROS Const Constitutional: No other (6 system ROS completed with pertinent findings in the HPI otherwise normal.) Exam Const General: cooperative and healthy appearing Resp Effort Inspection: normal respiratory effort Cardio Rate: regular rate Skin Other: Moderately large fungal dermatitis left inguinal region Neuro General: patient alert Psych Appearance: grossly normal Mental Status: mental status grossly normal Coding Level of Care Code Off vis,est,level 3 Diagnoses Fungal dermatitis B36.9 Assessment and Plan Assessment and Plan (1) Fungal dermatitis: Status: Acute Medications: New nystatin 1 applic topical BID 30 grams 1RF Plan Nystatin cream as prescribed today. Patient advised to keep the area clean and dry as much as possible. Advised to follow-up with her PCP in 10 to 14 days if no better or sooner if worse. Patient advised of other symptomatic management techniques as well as potential red flags and when appropriate to report to the ED. Patient verbalized understanding and agreement with all the above. Clinical Quality Measures Falls Risk Screening/Assistive Devices Have you fallen in the past year?: No 11/18/23 1220 Date Mk Jason Signature: Date (if applicable) CC: Normal [facility] SCRN MAMM (CAD)W/GLENDY BILATo n 09-30-2023 SCRN MAMM (CAD)W/GLENDY BILAT [facility] [address] [place], [place] [id number] SCRN MAMM (CAD)W/GLENDY BILAT MR#: [id number] Acct: [id number] Name: HONG KHAN Rep #: [id number] : 1965 F 57 From: Jarrett matute MD PCP: Dr. Nicky Covarrubias MD Status: [facility] Study: SCRN MAMM (CAD)W/GLENDY BILAT Date of Exam: 09/17 07/10 Exam# [id number] Ordering Dr: Nicky Covarrubias MD [id number] MAMMOGRAPHY - BILATERAL SCREENING REASON FOR EXAM: Female, 57 years old. Routine annual screening examination. PERTINENT HISTORY: Non-contributory. Remote left excisional breast biopsy. TECHNIQUE: Digital bilateral breast glendy (3D mammographic acquisition) in the CC and MLO projections. 2-D mediolateral oblique (MLO) and craniocaudad (CC) views of both breasts were obtained. CAD: Full Field Digital Mammography with Computer Added Detection was performed. COMPARISON: Comparison is made with prior study April 28, 2021 and August 23, 2017. FINDINGS: Breast Composition: There are scattered areas of fibroglandular density. There are no dominant masses or suspicious calcifications. Stable small benign-appearing bilateral axillary lymph nodes. No other significant abnormalities are identified. There has been no significant change since the prior study. BI/SCRN MAMM (CAD)W/GLENDY BILAT IMPRESSION: Stable bilateral screening mammogram. Yearly follow-up mammogram recommended. (A) ASSESSMENT CATEGORY: BIRADS Category 2: Benign. A letter regarding these results will be sent to the patient by the facility within 30 days. Approximately 10% of breast cancers are not detected by mammography. A normal mammogram should not delay biopsy of a clinically suspicious abnormality. [id number] Electronically Signed: Jarrett Hernández MD at 8:27 EDT , CC: Dr. 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 Normal [facility] Basophil percentageOrdered B y: Nicky Covarrubias on 03-31-2023 Cholesterol [Mass/Vol] 197 mg/dL <200 [facility] Comment on above: <200 mg/dL Desirable 200-240 mg/dL Borderline >240 mg/dL High Risk Triglyceride [Mass/Vol] 111 mg/dL <199 [facility] Comment on above: The drugs N-Acetylcy steine and Metamizole may falsely depress this assay.Serum Triglycerides Reference Interval Normal <150 mg/dL Borderline high 150 - 199 mg/dL High 200 - 499 mg/dL Very High > or = 500 mg/dL Serum or plasma cholesterol in HDL measurement (mass/volume)Ordered By: Nicky Covarrubias on 03-31-2023 Cholesterol in HDL [Mass/Vol] 65 mg/dL >40 [facility] Comment on above: The drugs N-Acetylcy steine and Metamizole may falsely depress this assay. Reference Range HDL <40 mg/dL Low HDL Cholesterol HDL >or= 60 mg/dL High HDL Cholesterol Serum or plasma cholesterol in VLDL measurement (mass/volume)Ordered By: Nicky Covarrubias on 03-31-2023 Cholesterol in VLDL [Mass/Vol] 22 mg/dL 5-40 [facility] Serum or plasma low density lipoprotein (LDL) cholesterol measurement (mass/volume)Ordered By: Nicky Covarrubias on 03-31-2023 Cholesterol in LDL [Mass/Vol] 110 mg/dL 0-130 [facility] Absolute lymphocyte countOrd ered By: Dr. Covarrubias on 06-17-2022 Lymphocytes Auto (Unsp spec) [#/Vol] 2.08 10*3/uL 0.83-4.51 [facility] Basophil percentageOrdered B y: Dr. Covarrubias on 06-17-2022 Basophils/100 WBC (Bld) 0.5 % 0-1 [facility] Bilirubin [Mass/Vol] 0.60 mg/dL 0.20-1.00 [facility] Comment on above: For patients on eltr ombopag therapy, use of [place] TBIL is not recommended. Chloride [Moles/Vol] 105 mmol/L 98-107 [facility] Eosinophils/100 WBC (Bld) 2.3 % 0-5 [facility] Glucose [Mass/Vol] 94 mg/dL 74-106 [facility] Neutrophils (Bld) [#/Vol] 3.1 10*3/uL 2.0-7.7 [facility] Neutrophils/100 WBC (Bld) 54.6 % 47-70 [facility] Potassium [Moles/Vol] 4.2 mmol/L 3.5-5.1 [facility] Protein [Mass/Vol] 8.1 g/dL 6.4-8.2 [facility] Sodium [Moles/Vol] 139 mmol/L 136-145 [facility] WBC (Bld) [#/Vol] 5.7 10*3/uL 4.4-11.0 [facility] Blood erythrocytes count (nu mber/volume)Ordered By: Dr. Covarrubias on 06-17-2022 RBC (Bld) [#/Vol] 4.70 10*6/uL 4.2-5.4 [facility] Blood hemoglobin measurement (mass/volume)Ordered By: Dr. Covarrubias on 06-17-2022 Hemoglobin (Bld) [Mass/Vol] 13.0 g/dL 12.0-15.0 [facility] Blood lymphocytes/100 leukoc ytesOrdered By: Dr. Covarrubias on 06-17-2022 Lymphocytes/100 WBC (Bld) 36.3 % 19-41 [facility] Blood monocytes/100 leukocyt esOrdered By: Dr. Covarrubias on 03-01-2023 Monocytes/100 WBC (Bld) 6.1 % 0-10 [facility] Blood platelet mean volumeOr dered By: Dr. Covarrubias on 06-17-2022 Platelet mean volume (Bld) [Entitic vol] 8.9 fL 6.2-12.0 [facility] Determination of erythrocyte mean corpuscular volume (MCV)Ordered By: Dr. Covarrubias on 06-17-2022 MCV (RBC) [Entitic vol] 90.4 fL 81-99 [facility] Hematocrit Auto (Bld) [Volum e fraction]Ordered By: Dr. Covarrubias on 06-17-2022 Hematocrit (Bld) [Volume fraction] 42.5 % 37-47 [facility] - Chemistry and C hemistry - challengeOrdered By: Dr. Covarrubias on 06-17-2022 ALP [Catalytic activity/Vol] 86 U/L 45-117 [facility] ALT [Catalytic activity/Vol] 33 U/L 13-56 [facility] CO2 [Moles/Vol] 28.0 mmol/L 21.0-32.0 [facility] Globulin (S) [Mass/Vol] 4.6 g/dL 2.2-4.2 [facility] Urea nitrogen/Creatinine [Mass ratio] 12.4 mg/mg 10-20 [facility] - Hematology and Cell countsOrdered By: Dr. Covarrubias on 06-17-2022 Erythrocyte distribution width (RBC) [Entitic vol] 56.8 fL 35.1-43.9 [facility] Erythrocyte distribution width (RBC) [Ratio] 17.2 % 11.6-14.6 [facility] Immature granulocytes/100 WBC (Bld) 0.200 % 0.0-0.9 [facility] Comment on above: IG% - Immature Granu locytes (promyelocytes, myelocytes and metamyelocytes) > 1% indicates that a LEFT SHIFT is Present. MCH (RBC) [Entitic mass] 27.7 pg 27.0-32.0 [facility] Nucleated RBC/100 WBC (Bld) [Ratio] 0 % 0-5 [facility] MCHC Auto (RBC) [Mass/Vol]Or dered By: Dr. Covarrubias on 03-01-2023 MCHC (RBC) [Mass/Vol] 30.6 g/dL 32-36 [facility] No Panel InformationOrdered By: Dr. Covarrubias on 06-17-2022 Estimated GFR (MDRD) Amer 76 mL/min >60 [facility] Comment on above: GFR Calc Estimated GFR (MDRD) Non-Af Amer 63 mL/min >60 [facility] Comment on above: Non- GFR Calc Platelets bldOrdered By: Dr. Covarrubias on 06-17-2022 Platelets (Bld) [#/Vol] 330 10*3/uL 150-450 [facility] Serum or plasma albumin roxi urement (mass/volume)Ordered By: Dr. Covarrubias on 06-17-2022 Albumin [Mass/Vol] 3.5 g/dL 3.2-5.0 [facility] Serum or plasma albumin/glob ulin mass ratioOrdered By: Dr. Covarrubias on 06-17-2022 Albumin/Globulin [Mass ratio] 0.8 {ratio} 0.9-2.4 [facility] Serum or plasma calcium roxi urement (mass/volume)Ordered By: Dr. Covarrubias on 06-17-2022 Calcium [Mass/Vol] 9.7 mg/dL 8.5-10.1 [facility] Serum or plasma creatinine m easurement (mass/volume)Ordered By: Dr. Covarrubias on 06-17-2022 Creatinine [Mass/Vol] 0.97 mg/dL 0.55-1.02 [facility] Comment on above: The validity of the calculated GFR & GFRAA in patients over 70 years has not been determined. Clinical correlation is essential. Serum or plasma urea nitroge n measurement (mass/volume)Ordered By: Dr. Covarrubias on 06-17-2022 Urea nitrogen [Mass/Vol] 12 mg/dL 7-18 [facility] Thin prep Papanicolaou smear with manual screeningOrdered By: Dr. Covarrubias on 06-17-2022 Thin prep Papanicolaou smear with manual screening 37 U/L 15-37 [facility] Thin prep Papanicolaou smear with manual screening 6 5-15 [facility] Absolute lymphocyte countOrd ered By: Dr. Covarrubias on 03-23-2022 Lymphocytes Auto (Unsp spec) [#/Vol] 1.70 10*3/uL 0.83-4.51 [facility] Basophil percentageOrdered B y: Dr. Covarrubias on 03-23-2022 Basophils/100 WBC (Bld) 0.5 % 0-1 [facility] Bilirubin [Mass/Vol] 0.40 mg/dL 0.20-1.00 [facility] Comment on above: For patients on eltr ombopag therapy, use of [place] TBIL is not recommended. Chloride [Moles/Vol] 105 mmol/L 98-107 [facility] Eosinophils/100 WBC (Bld) 2.9 % 0-5 [facility] Glucose [Mass/Vol] 101 mg/dL 74-106 [facility] Comment on above: Fasting Glucose resu lt from 100 to 125 mg/dL suggests IMPAIRED HOMEOSTASIS per A.D.A. criteria. Neutrophils (Bld) [#/Vol] 3.7 10*3/uL 2.0-7.7 [facility] Neutrophils/100 WBC (Bld) 60.8 % 47-70 [facility] Potassium [Moles/Vol] 4.0 mmol/L 3.5-5.1 [facility] Protein [Mass/Vol] 8.2 g/dL 6.4-8.2 [facility] Sodium [Moles/Vol] 137 mmol/L 136-145 [facility] WBC (Bld) [#/Vol] 6.1 10*3/uL 4.4-11.0 [facility] Blood erythrocytes count (nu mber/volume)Ordered By: Dr. Covarrubias on 03-23-2022 RBC (Bld) [#/Vol] 5.04 10*6/uL 4.2-5.4 [facility] Blood hemoglobin measurement (mass/volume)Ordered By: Dr. Covarrubias on 03-23-2022 Hemoglobin (Bld) [Mass/Vol] 13.6 g/dL 12.0-15.0 [facility] Blood lymphocytes/100 leukoc ytesOrdered By: Dr. Covarrubias on 03-23-2022 Lymphocytes/100 WBC (Bld) 27.8 % 19-41 [facility] Blood monocytes/100 leukocyt esOrdered By: Dr. Covarrubias on 03-23-2022 Monocytes/100 WBC (Bld) 7.7 % 0-10 [facility] Blood platelet mean volumeOr dered By: Dr. Covarrubias on 03-23-2022 Platelet mean volume (Bld) [Entitic vol] 9.3 fL 6.2-12.0 [facility] Determination of erythrocyte mean corpuscular volume (MCV)Ordered By: Dr. Covarrubias on 03-23-2022 MCV (RBC) [Entitic vol] 87.9 fL 81-99 [facility] Hematocrit Auto (Bld) [Volum e fraction]Ordered By: Dr. Covarrubias on 03-23-2022 Hematocrit (Bld) [Volume fraction] 44.3 % 37-47 [facility] Laboratory - Chemistry and C hemistry - challengeOrdered By: Dr. Covarrubias on 03-23-2022 ALP [Catalytic activity/Vol] 93 U/L 45-117 [facility] ALT [Catalytic activity/Vol] 21 U/L 13-56 [facility] CO2 [Moles/Vol] 25.0 mmol/L 21.0-32.0 [facility] Globulin (S) [Mass/Vol] 4.6 g/dL 2.2-4.2 [facility] Urea nitrogen/Creatinine [Mass ratio] 10.9 mg/mg 10-20 [facility] Laboratory - Hematology and Cell countsOrdered By: Dr. Covarrubias on 03-23-2022 Erythrocyte distribution width (RBC) [Entitic vol] 51.7 fL 35.1-43.9 [facility] Erythrocyte distribution width (RBC) [Ratio] 16.0 % 11.6-14.6 [facility] Immature granulocytes/100 WBC (Bld) 0.300 % 0.0-0.9 [facility] Comment on above: IG% - Immature Granu locytes (promyelocytes, myelocytes and metamyelocytes) > 1% indicates that a LEFT SHIFT is Present. MCH (RBC) [Entitic mass] 27.0 pg 27.0-32.0 [facility] Nucleated RBC/100 WBC (Bld) [Ratio] 0 % 0-5 [facility] MCHC Auto (RBC) [Mass/Vol]Or dered By: Dr. Covarrubias on 03-23-2022 MCHC (RBC) [Mass/Vol] 30.7 g/dL 32-36 [facility] No Panel InformationOrdered By: Dr. Covarrubias on 03-23-2022 Estimated GFR (MDRD) Amer 82 mL/min >60 [facility] Comment on above: GFR Calc Estimated GFR (MDRD) Non-Af Amer 67 mL/min >60 [facility] Comment on above: Non- GFR Calc Platelets bldOrdered By: Dr. Covarrubias on 03-23-2022 Platelets (Bld) [#/Vol] 364 10*3/uL 150-450 [facility] Serum or plasma albumin roxi urement (mass/volume)Ordered By: Dr. Covarrubias on 03-23-2022 Albumin [Mass/Vol] 3.6 g/dL 3.2-5.0 [facility] Serum or plasma albumin/glob ulin mass ratioOrdered By: Dr. Covarrubias on 03-23-2022 Albumin/Globulin [Mass ratio] 0.8 {ratio} 0.9-2.4 [facility] Serum or plasma calcium roxi urement (mass/volume)Ordered By: Dr. Covarrubias on 03-23-2022 Calcium [Mass/Vol] 9.3 mg/dL 8.5-10.1 [facility] Serum or plasma creatinine m easurement (mass/volume)Ordered By: Dr. Covarrubias on 03-23-2022 Creatinine [Mass/Vol] 0.92 mg/dL 0.55-1.02 [facility] Comment on above: The validity of the calculated GFR & GFRAA in patients over 70 years has not been determined. Clinical correlation is essential. Serum or plasma urea nitroge n measurement (mass/volume)Ordered By: Dr. Covarrubias on 03-23-2022 Urea nitrogen [Mass/Vol] 10 mg/dL 7-18 [facility] Thin prep Papanicolaou smear with manual screeningOrdered By: Dr. Covarrubias on 03-23-2022 Thin prep Papanicolaou smear with manual screening 18 U/L 15-37 [facility] Thin prep Papanicolaou smear with manual screening 7 5-15 [facility] Absolute lymphocyte counton 10-08-2021 Lymphocytes Auto (Unsp spec) [#/Vol] 1.28 10*3/uL 0.83-4.51 [facility] Work Phone: Basophil percentageon 2021 Basophils/100 WBC (Bld) 0.4 % 0-1 [facility] Work Phone: Bilirubin [Mass/Vol] 0.40 mg/dL 0.20-1.00 [facility] Work Phone: Comment on above: For patients on eltr ombopag therapy, use of [place] TBIL is not recommended. Chloride [Moles/Vol] 107 mmol/L 98-107 [facility] Work Phone: Eosinophils/100 WBC (Bld) 2.5 % 0-5 [facility] Work Phone: Glucose [Mass/Vol] 109 mg/dL 74-106 [facility] Work Phone: Comment on above: Fasting Glucose resu lt from 100 to 125 mg/dL suggests IMPAIRED HOMEOSTASIS per A.D.A. criteria. Neutrophils (Bld) [#/Vol] 2.8 10*3/uL 2.0-7.7 [facility] Work Phone: [phone] Neutrophils/100 WBC (Bld) 62.3 % 47-70 [facility] Work Phone: Potassium [Moles/Vol] 3.9 mmol/L 3.5-5.1 [facility] Work Phone: Protein [Mass/Vol] 8.0 g/dL 6.4-8.2 [facility] Work Phone: Sodium [Moles/Vol] 139 mmol/L 136-145 [facility] Work Phone: WBC (Bld) [#/Vol] 4.5 10*3/uL 4.4-11.0 [facility] Work Phone: Blood erythrocytes count (nu mber/volume)on 10-08-2021 RBC (Bld) [#/Vol] 4.90 10*6/uL 4.2-5.4 [facility]: Blood hemoglobin measurement (mass/volume)on 10-08-2021 Hemoglobin (Bld) [Mass/Vol] 13.5 g/dL 12.0-15.0 [facility] Work Phone: Blood lymphocytes/100 leukoc yteson 10-08-2021 Lymphocytes/100 WBC (Bld) 28.6 % 19-41 [facility] Work Phone: Blood monocytes/100 leukocyt eson 10-08-2021 Monocytes/100 WBC (Bld) 5.8 % 0-10 [facility] Work Phone: Blood platelet mean volumeon 10-08-2021 Platelet mean volume (Bld) [Entitic vol] 9.7 fL 6.2-12.0 [facility] Work Phone: Determination of erythrocyte mean corpuscular volume (MCV)on 10-08-2021 MCV (RBC) [Entitic vol] 89.0 fL 81-99 [facility] Work Phone: Hematocrit Auto (Bld) [Volum e fraction]on 10-08-2021 Hematocrit (Bld) [Volume fraction] 43.6 % 37-47 [facility] Work Phone: Laboratory - Chemistry and C hemistry - challengeon 10-08-2021 ALP [Catalytic activity/Vol] 84 U/L 45-117 [facility] Work Phone: ALT [Catalytic activity/Vol] 41 U/L 13-56 [facility] Work Phone: [phone] CO2 [Moles/Vol] 26.0 mmol/L 21.0-32.0 [facility] Work Phone: Globulin (S) [Mass/Vol] 4.6 g/dL 2.2-4.2 [facility] Work Phone: Urea nitrogen/Creatinine [Mass ratio] 9.9 mg/mg 10-20 [facility] Work Phone: Laboratory - Hematology and Cell countson 10-08-2021 Erythrocyte distribution width (RBC) [Entitic vol] 52.2 fL 35.1-43.9 [facility] Work Phone: Erythrocyte distribution width (RBC) [Ratio] 16.0 % 11.6-14.6 [facility] Work Phone: Immature granulocytes/100 WBC (Bld) 0.400 % 0.0-0.9 [facility] Work Phone: Comment on above: IG% - Immature Granu locytes (promyelocytes, myelocytes and metamyelocytes) > 1% indicates that a LEFT SHIFT is Present. MCH (RBC) [Entitic mass] 27.6 pg 27.0-32.0 [facility] Work Phone: Nucleated RBC/100 WBC (Bld) [Ratio] 0 % 0-5 [facility] Work Phone: MCHC Auto (RBC) [Mass/Vol]on 10-08-2021 MCHC (RBC) [Mass/Vol] 31.0 g/dL 32-36 [facility] Work Phone: No Panel Informationon 10-08 Estimated GFR (MDRD) Amer 73 mL/min >60 [facility] Work Phone: Comment on above: GFR Calc Estimated GFR (MDRD) Non-Af Amer 60 mL/min >60 [facility] Work Phone: Comment on above: Non- GFR Calc Platelets bldon 10-08-2021 Platelets (Bld) [#/Vol] 337 10*3/uL 150-450 [facility] Work Phone: Serum or plasma albumin roxi urement (mass/volume)on 10-08-2021 Albumin [Mass/Vol] 3.4 g/dL 3.2-5.0 [facility] Work Phone: Serum or plasma albumin/glob ulin mass ratioon 10-08-2021 Albumin/Globulin [Mass ratio] 0.7 {ratio} 0.9-2.4 [facility] Work Phone: Serum or plasma calcium roxi urement (mass/volume)on 10-08-2021 Calcium [Mass/Vol] 9.2 mg/dL 8.5-10.1 [facility] Work Phone: Serum or plasma creatinine m easurement (mass/volume)on 10-08-2021 Creatinine [Mass/Vol] 1.01 mg/dL 0.55-1.02 [facility] Work Phone: Comment on above: The validity of the calculated GFR & GFRAA in patients over 70 years has not been determined. Clinical correlation is essential. Serum or plasma urea nitroge n measurement (mass/volume)on 10-08-2021 Urea nitrogen [Mass/Vol] 10 mg/dL 7-18 [facility] Work Phone: Thin prep Papanicolaou smear with manual screeningon 10-08-2021 Thin prep Papanicolaou smear with manual screening 35 U/L 15-37 [facility] Work Phone: Thin prep Papanicolaou smear with manual screening 6 5-15 [facility] Work Phone: Absolute lymphocyte counton 07-04-2021 Lymphocytes Auto (Unsp spec) [#/Vol] 2.19 10*3/uL 0.83-4.51 [facility] Work Phone: Basophil percentageon 2021 Basophils/100 WBC (Bld) 0.6 % 0-1 [facility] Work Phone: Bilirubin [Mass/Vol] 0.50 mg/dL 0.20-1.00 [facility] Work Phone: Comment on above: For patients on eltr ombopag therapy, use of [place] TBIL is not recommended. Chloride [Moles/Vol] 105 mmol/L 98-107 [facility] Work Phone: Eosinophils/100 WBC (Bld) 2.6 % 0-5 [facility] Work Phone: Glucose [Mass/Vol] 80 mg/dL 74-106 [facility] Work Phone: Neutrophils (Bld) [#/Vol] 3.4 10*3/uL 2.0-7.7 [facility] Work Phone: Neutrophils/100 WBC (Bld) 53.7 % 47-70 [facility] Work Phone: [phone] Potassium [Moles/Vol] 3.9 mmol/L 3.5-5.1 [facility]: Protein [Mass/Vol] 8.5 g/dL 6.4-8.2 [facility] Work Phone: [phone] Sodium [Moles/Vol] 138 mmol/L 136-145 [facility] Work Phone: [phone] WBC (Bld) [#/Vol] 6.4 10*3/uL 4.4-11.0 [facility] Work Phone: [phone] Blood erythrocytes count (nu mber/volume)on 07-04-2021 RBC (Bld) [#/Vol] 4.88 10*6/uL 4.2-5.4 [facility]: Blood hemoglobin measurement (mass/volume)on 07-04-2021 Hemoglobin (Bld) [Mass/Vol] 13.6 g/dL 12.0-15.0 [facility] Work Phone: [phone] Blood lymphocytes/100 leukoc yteson 07-04-2021 Lymphocytes/100 WBC (Bld) 34.1 % 19-41 [facility] Work Phone: Blood monocytes/100 leukocyt eson 07-04-2021 Monocytes/100 WBC (Bld) 8.7 % 0-10 [facility] Work Phone: [phone] Blood platelet mean volumeon 07-04-2021 Platelet mean volume (Bld) [Entitic vol] 9.4 fL 6.2-12.0 [facility] Work Phone: Determination of erythrocyte mean corpuscular volume (MCV)on 07-04-2021 MCV (RBC) [Entitic vol] 90.4 fL 81-99 [facility] Work Phone: Hematocrit Auto (Bld) [Volum e fraction]on 07-04-2021 Hematocrit (Bld) [Volume fraction] 44.1 % 37-47 [facility] Work Phone: Laboratory - Chemistry and C hemistry - challengeon 07-04-2021 ALP [Catalytic activity/Vol] 92 U/L 45-117 [facility] Work Phone: ALT [Catalytic activity/Vol] 23 U/L 13-56 [facility] Work Phone: CO2 [Moles/Vol] 30.0 mmol/L 21.0-32.0 [facility] Work Phone: Globulin (S) [Mass/Vol] 4.8 g/dL 2.2-4.2 [facility] Work Phone: Urea nitrogen/Creatinine [Mass ratio] 9.8 mg/mg 10-20 [facility] Work Phone: Laboratory - Hematology and Cell countson 07-04-2021 Erythrocyte distribution width (RBC) [Entitic vol] 53.1 fL 35.1-43.9 [facility] Work Phone: Erythrocyte distribution width (RBC) [Ratio] 16.0 % 11.6-14.6 [facility] Work Phone: Immature granulocytes/100 WBC (Bld) 0.300 % 0.0-0.9 [facility] Work Phone: Comment on above: IG% - Immature Granu locytes (promyelocytes, myelocytes and metamyelocytes) > 1% indicates that a LEFT SHIFT is Present. MCH (RBC) [Entitic mass] 27.9 pg 27.0-32.0 [facility] Work Phone: Nucleated RBC/100 WBC (Bld) [Ratio] 0 % 0-5 [facility] Work Phone: MCHC Auto (RBC) [Mass/Vol]on 07-04-2021 MCHC (RBC) [Mass/Vol] 30.8 g/dL 32-36 [facility] Work Phone: No Panel Informationon 07-04 Estimated GFR (MDRD) Amer 81 mL/min >60 [facility] Work Phone: Comment on above: GFR Calc Estimated GFR (MDRD) Non-Af Amer 67 mL/min >60 [facility] Work Phone: Comment on above: Non- GFR Calc Platelets bldon 07-04-2021 Platelets (Bld) [#/Vol] 379 10*3/uL 150-450 [facility] Work Phone: Serum or plasma albumin roxi urement (mass/volume)on 07-04-2021 Albumin [Mass/Vol] 3.7 g/dL 3.2-5.0 [facility] Work Phone: Serum or plasma albumin/glob ulin mass ratioon 07-04-2021 Albumin/Globulin [Mass ratio] 0.8 {ratio} 0.9-2.4 [facility] Work Phone: Serum or plasma calcium roxi urement (mass/volume)on 07-04-2021 Calcium [Mass/Vol] 9.1 mg/dL 8.5-10.1 [facility] Work Phone: Serum or plasma creatinine m easurement (mass/volume)on 07-04-2021 Creatinine [Mass/Vol] 0.92 mg/dL 0.55-1.02 [facility] Work Phone: Comment on above: The validity of the calculated GFR & GFRAA in patients over 70 years has not been determined. Clinical correlation is essential. Serum or plasma urea nitroge n measurement (mass/volume)on 07-04-2021 Urea nitrogen [Mass/Vol] 9 mg/dL -18 [facility] Work Phone: Thin prep Papanicolaou smear with manual screeningon 03-18-2022 Thin prep Papanicolaou smear with manual screening 17 U/L 15-37 [facility] Work Phone: [phone] Thin prep Papanicolaou smear with manual screening 3 5-15 [facility] Work Phone: Absolute lymphocyte counton 04-22-2021 Lymphocytes Auto (Unsp spec) [#/Vol] 2.01 10*3/uL 0.83-4.51 [facility] Work Phone: Basophil percentageon 2021 Basophils/100 WBC (Bld) 0.6 % 0-1 [facility] Work Phone: Bilirubin [Mass/Vol] 0.50 mg/dL 0.20-1.00 [facility] Work Phone: Comment on above: For patients on eltr ombopag therapy, use of [place] TBIL is not recommended. Chloride [Moles/Vol] 102 mmol/L 98-107 [facility] Work Phone: Eosinophils/100 WBC (Bld) 1.4 % 0-5 [facility] Work Phone: Glucose [Mass/Vol] 79 mg/dL 74-106 [facility] Work Phone: Comment on above: Please note revised GLUCOSE reference range effective 2017. Neutrophils (Bld) [#/Vol] 4.5 10*3/uL 2.0-7.7 [facility] Work Phone: Neutrophils/100 WBC (Bld) 62.3 % 47-70 [facility] Work Phone: Potassium [Moles/Vol] 3.9 mmol/L 3.5-5.1 [facility] Work Phone: Protein [Mass/Vol] 8.4 g/dL 6.4-8.2 [facility] Work Phone: Sodium [Moles/Vol] 137 mmol/L 136-145 [facility] Work Phone: WBC (Bld) [#/Vol] 7.2 10*3/uL 4.4-11.0 [facility] Work Phone: Blood erythrocytes count (nu mber/volume)on 04-22-2021 RBC (Bld) [#/Vol] 5.07 10*6/uL 4.2-5.4 [facility] Work [facility]: Blood hemoglobin measurement (mass/volume)on 04-22-2021 Hemoglobin (Bld) [Mass/Vol] 13.7 g/dL 12.0-15.0 [facility] Work Phone: Blood lymphocytes/100 leukoc yteson 04-22-2021 Lymphocytes/100 WBC (Bld) 28.1 % 19-41 [facility] Work Phone: Blood monocytes/100 leukocyt eson 04-22-2021 Monocytes/100 WBC (Bld) 7.3 % 0-10 [facility] Work Phone: Blood platelet mean volumeon 04-22-2021 Platelet mean volume (Bld) [Entitic vol] 9.5 fL 6.2-12.0 [facility] Work Phone: Determination of erythrocyte mean corpuscular volume (MCV)on 04-22-2021 MCV (RBC) [Entitic vol] 89.3 fL 81-99 [facility] Work Phone: Hematocrit Auto (Bld) [Volum e fraction]on 04-22-2021 Hematocrit (Bld) [Volume fraction] 45.3 % 37-47 [facility] Work Phone: Laboratory - Chemistry and C hemistry - challengeon 04-22-2021 ALP [Catalytic activity/Vol] 90 U/L 45-117 [facility] Work Phone: ALT [Catalytic activity/Vol] 28 U/L 13-56 [facility] Work Phone: CO2 [Moles/Vol] 27.0 mmol/L 21.0-32.0 [facility] Work Phone: Globulin (S) [Mass/Vol] 5.1 g/dL 2.2-4.2 [facility] Work Phone: Urea nitrogen/Creatinine [Mass ratio] 8.8 mg/mg 10-20 [facility] Work Phone: Laboratory - Hematology and Cell countson 04-22-2021 Erythrocyte distribution width (RBC) [Entitic vol] 51.0 fL 35.1-43.9 [facility] Work Phone: Erythrocyte distribution width (RBC) [Ratio] 15.6 % 11.6-14.6 [facility] Work Phone: Immature granulocytes/100 WBC (Bld) 0.300 % 0.0-0.9 [facility] Work Phone: Comment on above: IG% - Immature Granu locytes (promyelocytes, myelocytes and metamyelocytes) > 1% indicates that a LEFT SHIFT is Present. MCH (RBC) [Entitic mass] 27.0 pg 27.0-32.0 [facility] Work Phone: Nucleated RBC/100 WBC (Bld) [Ratio] 0 % 0-5 [facility] Work Phone: MCHC Auto (RBC) [Mass/Vol]on 04-22-2021 MCHC (RBC) [Mass/Vol] 30.2 g/dL 32-36 [facility] Work Phone: No Panel Informationon 04-22 Estimated GFR (MDRD) Amer 83 mL/min >60 [facility] Work Phone: Comment on above: GFR Calc Estimated GFR (MDRD) Non-Af Amer 68 mL/min >60 [facility] Work Phone: Comment on above: Non- GFR Calc Platelets bldon 04-22-2021 Platelets (Bld) [#/Vol] 389 10*3/uL 150-450 [facility] Work Phone: Serum or plasma albumin roxi urement (mass/volume)on 04-22-2021 Albumin [Mass/Vol] 3.3 g/dL 3.2-5.0 [facility] Work Phone: Serum or plasma albumin/glob ulin mass ratioon 04-22-2021 Albumin/Globulin [Mass ratio] 0.6 {ratio} 0.9-2.4 [facility] Work Phone: Serum or plasma calcium roxi urement (mass/volume)on 04-22-2021 Calcium [Mass/Vol] 9.3 mg/dL 8.5-10.1 [facility] Work Phone: Serum or plasma creatinine m easurement (mass/volume)on 04-22-2021 Creatinine [Mass/Vol] 0.91 mg/dL 0.55-1.02 [facility] Work Phone: Comment on above: The validity of the calculated GFR & GFRAA in patients over 70 years has not been determined. Clinical correlation is essential. Serum or plasma urea nitroge n measurement (mass/volume)on 04-22-2021 Urea nitrogen [Mass/Vol] 8 mg/dL 7-18 [facility] Work Phone: Thin prep Papanicolaou smear with manual screeningon 04-22-2021 Thin prep Papanicolaou smear with manual screening 24 U/L 15-37 [facility] Work Phone: Thin prep Papanicolaou smear with manual screening 8 5-15 [facility] Work Phone: Laboratory - Microbiology an d Antimicrobial susceptibilityon 04-01-2021 SARS-CoV-2 (COVID-19) RNA DEB+probe Ql (Unsp spec) Not detected Not Detect [facility] Work Phone: Comment on above: Normal Reference Ran ge: Not DetectedMethod:(RT-PCR) real-time reverse transcriptase PCRLuminex SORAYA Instrument*The Food and Drug Administration (FDA) has issued an Emergency Use Authorization (EAU) for the SORAYA SARS-CoV-2 Assay for the rapid detection of the virus that causes COVID-19. This test has been validated, but the FDAs independent review of this validation is pending.*Negative results do not preclude infection and should not be used as the sole basis for treatment or patient management. Optimum specimen types and timing for peak viral levels during infections caused by SARS-CoV-2 have not been determined. Collection of multiple specimens from the same patient may be necessary to detect the virus. The possibility of a false negative result should be considered if the patient has clinical presentation or has had recent exposure. Vital Signs Date Time Vital Sign Value Performing Clinician Bharati romulo 09-05-2024 12:53-0400 Body height 167.[address] Nicky Covarrubias MD Work Phone: [facility] 09-05-2024 12:53-0400 Body weight 136.[address] Nicky Covarrubias MD Work Phone: [facility] 09-05-2024 12:53-0400 Heart rate 90 /min Dr. Nicky Covarrubias MD Work Phone: [facility] 09-05-2024 12:53-0400 SaO2% (BldA) [Mass fraction] 94 % Dr. Nicky Covarrubias MD Work Phone: [facility] 08-23-2024 14:49-0400 Body mass index (BMI) [Ratio] 48.3 kg/m2 Dr. Nicky Covarrubias MD Work Phone: [facility] 08-23-2024 14:49-0400 Body temperature 96.4 [degF] Dr. Nicky Covarrubias MD Work Phone: [facility] 08-23-2024 14:49-0400 Body weight 135.[address] Nicky Covarrubias MD Work Phone: [facility] 08-23-2024 14:49-0400 Diastolic blood pressure 70 mm[Hg] Dr. Nicky Covarrubias MD Work Phone: [facility] 08-23-2024 14:49-0400 Heart rate 115 /min Dr. Nicky Covarrubias MD Work Phone: [facility] 08-23-2024 14:49-0400 Respiratory rate 16 /min Dr. Nicky Covarrubias MD Work Phone: [facility] 08-23-2024 14:49-0400 SaO2% (BldA) [Mass fraction] 93 % Dr. Nicky Covarrubias MD Work Phone: [facility] 08-23-2024 14:49-0400 Systolic blood pressure 130 mm[Hg] Dr. Nicky Covarrubias MD Work Phone: [facility] 08-01-2024 08:37-0400 Body mass index (BMI) [Ratio] 47 kg/m2 Dr. Nicky Covarrubias MD Work Phone: [facility] 08-01-2024 08:37-0400 Body temperature 97.4 [degF] Dr. Nicky Covarrubias MD Work Phone: [facility] 08-01-2024 08:37-0400 Body weight 131.[address] Nicky Covarrubias MD Work Phone: [facility] 08-01-2024 08:37-0400 Diastolic blood pressure 86 mm[Hg] Dr. Nicky Covarrubias MD Work Phone: [facility] 08-01-2024 08:37-0400 Heart rate 96 /min Dr. Nicky Covarrubias MD Work Phone: [facility] 08-01-2024 08:37-0400 Respiratory rate 20 /min Dr. Nicky Covarrubias MD Work Phone: [facility] 08-01-2024 08:37-0400 SaO2% (BldA) [Mass fraction] 96 % Dr. Nicky Covarrubias MD Work Phone: [facility] 08-01-2024 08:37-0400 Systolic blood pressure 143 mm[Hg] Dr. Nicky Covarrubias MD Work Phone: [facility] 06-15-2024 12:28-0500 Body height 167.[address] Nicky Covarrubias MD Work Phone: [facility] 06-15-2024 12:28-0500 Body mass index (BMI) [Ratio] 46.6 kg/m2 Dr. Nicky Covarrubias MD Work Phone: [facility] 06-15-2024 12:28-0500 Body temperature 97.8 [degF] Dr. Nicky Covarrubias MD Work Phone: [facility] 06-15-2024 12:28-0500 Body weight 131.[address] Nicky Covarrubias MD Work Phone: [facility] 06-15-2024 12:28-0500 Diastolic blood pressure 70 mm[Hg] Dr. Nicky Covarrubias MD Work Phone: [facility] 06-15-2024 12:28-0500 Heart rate 114 /min Dr. Nicky Covarrubias MD Work Phone: [facility] 06-15-2024 12:28-0500 Respiratory rate 25 /min Dr. Nicky Covarrubias MD Work Phone: [facility] 06-15-2024 12:28-0500 SaO2% (BldA) [Mass fraction] 98 % Dr. Nicky Covarrubias MD Work Phone: [facility] 06-15-2024 12:28-0500 Systolic blood pressure 142 mm[Hg] Dr. Nicky Covarrubias MD Work Phone: [facility] 06-01-2024 18:07-0500 Body mass index (BMI) [Ratio] 46.6 kg/m2 Dr. Nicky Covarrubias MD Work Phone: [facility] 06-01-2024 18:07-0500 Body temperature 98.9 [degF] Dr. Nicky Covarrubias MD Work Phone: [facility] 06-01-2024 18:07-0500 Body weight 131.[address] Nciky Covarrubias MD Work Phone: [facility] 06-01-2024 18:07-0500 Diastolic blood pressure 88 mm[Hg] Dr. Nicky Covarrubias MD Work Phone: [facility] 06-01-2024 18:07-0500 Heart rate 102 /min Dr. Nicky Covarrubias MD Work Phone: [facility] 06-01-2024 18:07-0500 Respiratory rate 18 /min Dr. Nicky Covarrubias MD Work Phone: [facility] 06-01-2024 18:07-0500 SaO2% (BldA) [Mass fraction] 94 % Dr. Nicky Covarrubias MD Work Phone: [facility] 06-01-2024 18:07-0500 Systolic blood pressure 140 mm[Hg] Dr. Nicky Covarrubias MD Work Phone: [facility] 05-28-2024 09:30-0500 Body temperature 98.1 [degF] Dr. Nicky Covarrubias MD Work Phone: [facility] 05-28-2024 09:30-0500 Diastolic blood pressure 80 mm[Hg] Dr. Nicky Covarrubias MD Work Phone: [facility] 05-28-2024 09:30-0500 Heart rate 114 /min Dr. Nicky Covarrubias MD Work Phone: [facility] 05-28-2024 09:30-0500 Respiratory rate 18 /min Dr. Nicky Covarrubias MD Work Phone: [facility] 05-28-2024 09:30-0500 SaO2% (BldA) [Mass fraction] 90 % Dr. Nicky Covarrubias MD Work Phone: [facility] 05-28-2024 09:30-0500 Systolic blood pressure 142 mm[Hg] Dr. Nicky Covarrubias MD Work Phone: [facility] 05-24-2024 16:40-0500 Diastolic blood pressure 71 mm[Hg] Dr. Nicky Covarrubias MD Work Phone: [facility] 05-24-2024 16:40-0500 Heart rate 80 /min Dr. Nicky Covarrubias MD Work Phone: [facility] 05-24-2024 16:40-0500 SaO2% (BldA) [Mass fraction] 93 % Dr. Nicky Covarrubias MD Work Phone: [facility] 05-24-2024 16:40-0500 Systolic blood pressure 136 mm[Hg] Dr. Nicky Covarrubias MD Work Phone: [facility] 05-24-2024 14:04-0500 Respiratory rate 18 /min Dr. Nicky Covarrubias MD Work Phone: [facility] 05-24-2024 10:15-0500 Body temperature 97.7 [degF] Dr. Nicky Covarrubias MD Work Phone: [facility] 05-23-2024 07:55-0500 Inhaled oxygen flow rate 2 L/min Dr. Nicky Covarrubias MD Work Phone: [facility] 05-20-2024 13:31-0500 Body weight 131.[address] Nicky Covarrubias MD Work Phone: [facility] 05-19-2024 20:18-0500 Body mass index (BMI) [Ratio] 46.9 kg/m2 Dr. Nicky Covarrubias MD Work Phone: [facility] 05-19-2024 09:30-0500 SaO2% (BldA) [Mass fraction] 79 % Dr. Nicky Covarrubias MD Work Phone: [facility] 04-27-2024 14:52-0500 Body mass index (BMI) [Ratio] 47.2 kg/m2 Dr. Nicky Covarrubias MD Work Phone: [facility] 04-27-2024 14:52-0500 Body temperature 97.3 [degF] Dr. Nicky Covarrubias MD Work Phone: [facility] 04-27-2024 14:52-0500 Body weight 136.[address] Nicky Covarrubias MD Work Phone: [facility] 04-27-2024 14:52-0500 Diastolic blood pressure 84 mm[Hg] Dr. Nicky Covarrubias MD Work Phone: [facility] 04-27-2024 14:52-0500 Heart rate 98 /min Dr. Nicky Covarrubias MD Work Phone: [facility] 04-27-2024 14:52-0500 Respiratory rate 18 /min Dr. Nicky Covarrubias MD Work Phone: [facility] 04-27-2024 14:52-0500 SaO2% (BldA) [Mass fraction] 94 % Dr. Nicky Covarrubias MD Work Phone: [facility] 04-27-2024 14:52-0500 Systolic blood pressure 130 mm[Hg] Dr. Nicky Covarrubias MD Work Phone: [facility] 03-31-2023 14:32-0500 Body height 170.[address] Nicky Covarrubias Work Phone: [facility] 03-31-2023 14:32-0500 Body mass index (BMI) [Ratio] 45.9 kg/m2 Dr. Nicky Covarrubias Work Phone: [facility] 03-31-2023 14:32-0500 Body temperature 97.4 [degF] Dr. Nicky Covarrubias Work Phone: [facility] 03-31-2023 14:32-0500 Body weight 133.[address] Nicky Covarrubias Work Phone: [facility] 03-31-2023 14:32-0500 Diastolic blood pressure 80 mm[Hg] Dr. Nicky Covarrubias Work Phone: [facility] 03-31-2023 14:32-0500 Heart rate 89 /min Dr. Nicky Covarrubias Work Phone: [facility] 03-31-2023 14:32-0500 Respiratory rate 16 /min Dr. Nicky Covarrubias Work Phone: [facility] 03-31-2023 14:32-0500 Systolic blood pressure 126 mm[Hg] Dr. Nicky Covarrubias Work Phone: [facility] 12-31-2022 15:34-0400 Body mass index (BMI) [Ratio] 45.6 kg/m2 Dr. Nicky Covarrubias Work Phone: [facility] 12-31-2022 15:34-0400 Body temperature 96.5 [degF] Dr. Nicky Covarrubias Work Phone: [facility] 12-31-2022 15:34-0400 Body weight 132.[address] Nicky Covarrubias Work Phone: [facility] 12-31-2022 15:34-0400 Diastolic blood pressure 80 mm[Hg] Dr. Nicky Covarrubias Work Phone: [facility] 12-31-2022 15:34-0400 Heart rate 98 /min Dr. Nicky Covarrubias Work Phone: [facility] 12-31-2022 15:34-0400 Respiratory rate 18 /min Dr. Nicky Covarrubias Work Phone: [facility] 12-31-2022 15:34-0400 SaO2% (BldA) [Mass fraction] 97 % Dr. Nicky Covarrubias Work Phone: [facility] 12-31-2022 15:34-0400 Systolic blood pressure 128 mm[Hg] Dr. Nicky Covarrubias Work Phone: [facility] 05-06-2022 14:48-0500 Body height 170.[address] Nicky Covarrubias Work Phone: [facility] 05-06-2022 14:48-0500 Body mass index (BMI) [Ratio] 45.1 kg/m2 Dr. Nicky Covarrubias Work Phone: [facility] 05-06-2022 14:48-0500 Body temperature 98 [degF] Dr. Nicky Covarrubias Work Phone: [facility] 05-06-2022 14:48-0500 Body weight 130.[address] Nicky Covarrubias Work Phone: [facility] 05-06-2022 14:48-0500 Diastolic blood pressure 84 mm[Hg] Dr. Nicky Covarrubias Work Phone: [facility] 05-06-2022 14:48-0500 Heart rate 85 /min Dr. Nicky Covarrubias Work Phone: [facility] 05-06-2022 14:48-0500 Respiratory rate 14 /min Dr. Nicky Covarrubias Work Phone: [facility] 05-06-2022 14:48-0500 SaO2% (BldA) [Mass fraction] 99 % Dr. Nicky Covarrubias Work Phone: [facility] 05-06-2022 14:48-0500 Systolic blood pressure 116 mm[Hg] Dr. Nicky Covarrubias Work Phone: [facility] 03-23-2022 09:51-0500 Body height 170.[address] Nicky Covarrubias Work Phone: [facility] Work Phone: 03-23-2022 09:51-0500 Body mass index (BMI) [Ratio] 44.9 kg/m2 Dr. Nicky Covarrubias Work Phone: [facility] 03-23-2022 09:51-0500 Body temperature 97.6 [degF] Dr. Nicky Covarrubias Work Phone: [facility] 03-23-2022 09:51-0500 Body weight 130.[address] Nicky Covarrubias Work Phone: [facility] 03-23-2022 09:51-0500 Diastolic blood pressure 84 mm[Hg] Dr. Nicky Covarrubias Work Phone: [facility] 03-23-2022 09:51-0500 Heart rate 84 /min Dr. Nicky Covarrubias Work Phone: [facility] 03-23-2022 09:51-0500 Respiratory rate 14 /min Dr. Nicky Covarrubias Work Phone: [facility] 03-23-2022 09:51-0500 SaO2% (BldA) [Mass fraction] 97 % Dr. Nicky Covarrubias Work Phone: [facility] 03-23-2022 09:51-0500 Systolic blood pressure 132 mm[Hg] Dr. Nicky Covarrubias Work Phone: [facility] 12-29-2021 15:26-0400 Body mass index (BMI) [Ratio] 44.4 kg/m2 Dr. Nicky Covarrubias Work Phone: [facility] Work Phone: 12-29-2021 15:26-0400 Body temperature 97.6 [degF] Dr. Nicky Covarrubias Work Phone: [facility] Work Phone: 12-29-2021 15:26-0400 Body weight 128.[address] Nicky Covarrubias Work Phone: [facility] Work Phone: 12-29-2021 15:26-0400 Diastolic blood pressure 84 mm[Hg] Dr. Nicky Covarrubias Work Phone: [facility] Work Phone: 12-29-2021 15:26-0400 Heart rate 81 /min Dr. Nicky Covarrubias Work Phone: [facility] Work Phone: 12-29-2021 15:26-0400 Respiratory rate 16 /min Dr. Nicky Covarrubias Work Phone: [facility] Work Phone: 12-29-2021 15:26-0400 SaO2% (BldA) [Mass fraction] 98 % Dr. Nicky Covarrubias Work Phone: [facility] Work Phone: 12-29-2021 15:26-0400 Systolic blood pressure 122 mm[Hg] Dr. Nicky Covarrubias Work Phone: [facility] Work Phone: 09-30-2021 15:15-0400 Body height 170.[address] Nicky Covarrubias Work Phone: [facility] Work Phone: 09-30-2021 15:15-0400 Body mass index (BMI) [Ratio] 45.4 kg/m2 Dr. Nicky Covarrubias Work Phone: [facility] Work Phone: 09-30-2021 15:15-0400 Body temperature 98 [degF] Dr. Nicky Covarrubias Work Phone: [facility] Work Phone: 09-30-2021 15:15-0400 Body weight 131.[address] Nicky Covarrubias Work Phone: [facility] Work Phone: 09-30-2021 15:15-0400 Diastolic blood pressure 86 mm[Hg] Dr. Nicky Covarrubias Work Phone: [facility] Work Phone: 09-30-2021 15:15-0400 Heart rate 89 /min Dr. Nicky Covarrubias Work Phone: [facility] Work Phone: 09-30-2021 15:15-0400 Respiratory rate 14 /min Dr. Nicky Covarrubias Work Phone: [facility] Work Phone: 09-30-2021 15:15-0400 SaO2% (BldA) [Mass fraction] 97 % Dr. Nicky Covarrubias Work Phone: [facility] Work Phone: 09-30-2021 15:15-0400 Systolic blood pressure 128 mm[Hg] Dr. Nicky Covarrubias Work Phone: [facility] Work Phone: 08-20-2021 14:31-0400 Body mass index (BMI) [Ratio] 45.8 kg/m2 Dr. Nicky Covarrubias Work Phone: [facility] Work Phone: 08-20-2021 14:31-0400 Body temperature 97.6 [degF] Dr. Nicky Covarrubias Work Phone: [facility] Work Phone: 08-20-2021 14:31-0400 Body weight 132.[address] Nicky Covarrubias Work Phone: [facility] Work Phone: 08-20-2021 14:31-0400 Diastolic blood pressure 78 mm[Hg] Dr. Nicky Covarrubias Work Phone: [facility] Work Phone: 08-20-2021 14:31-0400 Heart rate 102 /min Dr. Nicky Covarrubias Work Phone: [facility] Work Phone: 08-20-2021 14:31-0400 Respiratory rate 16 /min Dr. Nicky Covarrubias Work Phone: [facility] Work Phone: 08-20-2021 14:31-0400 SaO2% (BldA) [Mass fraction] 96 % Dr. Nicky Covarrubias Work Phone: [facility] Work Phone: 08-20-2021 14:31-0400 Systolic blood pressure 122 mm[Hg] Dr. Nicky Covarrubias Work Phone: [facility] Work Phone: 04-24-2021 13:53-0500 Body height 170.[address] Nicky Covarrubias Work Phone: [facility] Work Phone: 04-24-2021 13:53-0500 Body mass index (BMI) [Ratio] 46.2 kg/m2 Dr. Nicky Covarrubias Work Phone: [facility] Work Phone: 04-24-2021 13:53-0500 Body temperature 96.8 [degF] Dr. Nicky Covarrubias Work Phone: [facility] Work Phone: 04-24-2021 13:53-0500 Body weight 133.[address] Nicky Covarrubias Work Phone: [facility] Work Phone: 04-24-2021 13:53-0500 Diastolic blood pressure 68 mm[Hg] Dr. Nicky Covarrubias Work Phone: [facility] Work Phone: 04-24-2021 13:53-0500 Heart rate 109 /min Dr. Nicky Covarrubias Work Phone: [facility] Work Phone: 04-24-2021 13:53-0500 Respiratory rate 16 /min Dr. Nicky Covarrubias Work Phone: [facility] Work Phone: 04-24-2021 13:53-0500 SaO2% (BldA) [Mass fraction] 97 % Dr. Nicky Covarrubias Work Phone: [facility] Work Phone: 04-24-2021 13:53-0500 Systolic blood pressure 116 mm[Hg] Dr. Nicky Covarrubias Work Phone: [facility] Work Phone: 10-03-2020 14:04-0400 Body mass index (BMI) [Ratio] 46.8 kg/m2 Dr. Nicky Covarrubias Work Phone: [facility] Work Phone: Encounters Encounter Date Encounter Type Care Provider Facility Start: 10-16-2024 ambulatory Efewongbe Oleghe Facili ty:[facility] Start: 09-25-2024 ambulatory Efewongbe Oleghe Facili ty:[facility] Start: 09-18-2024 ambulatory Efewongbe Oleghe Facili ty:[facility] Start: 09-11-2024 ambulatory Zeinab Robini ty:[facility] Start: 09-11-2024 Non-patient / Non-visit Dr. Bryce yi DO -[facility] Start: 09-05-2024 End: 09-05-[address] Nicky Covarrubias MD Work Phone: [facility] Work Phone: Start: 09-05-2024 End: 09-05-2024 Patient encounter procedure MARGIE Monique -Pulmonary Services/Neurology Work Phone: Start: 09-05-2024 End: 09-05-2024 ambulatory Zeinab Monique Facility:[facility] Start: 08-23-2024 Encounter for genera l adult medical examination without abnormal findings [facility] Start: 08-23-2024 End: 08-23-[address] Nicky Covarrubias MD -[facility] Work Phone: Start: 08-23-2024 End: 08-23-[address] Nicky Covarrubias MD [facility] Start: 08-23-2024 End: 08-23-2024 ambulatory [facility] Facility:[facility] Start: 08-09-2024 End: 08-09-[address] Nicky Covarrubias MD Work Phone: [facility] Work Phone: Start: 08-09-2024 End: 08-09-2024 Patient encounter procedure MARGIE Monique -Laboratory, [facility] Start: 08-09-2024 End: 08-09-2024 ambulatory Zeinab Monique Facility:[facility] Start: 08-01-2024 End: 08-01-2024 Patient encounter procedure MARGIE Monique -[facility] Work Phone: Start: 08-01-2024 End: 08-01-2024 ambulatory [facility] Facility:[facility] Start: 06-28-2024 End: 06-28-[address] Nicky Covarrubias MD Work Phone: [facility] Work Phone: Start: 06-28-2024 End: 06-28-[address] Nicky Covarrubias MD -Pulmonary Services/Neurology Work Phone: Start: 06-28-2024 End: 06-28-2024 ambulatory [facility] Facility:[facility] Start: 06-15-2024 End: 06-15-2024 Patient encounter procedure Adolfo TABOR -[facility] Work Phone: Start: 06-15-2024 End: 06-15-2024 ambulatory [facility] Facility:[facility] Start: 06-01-2024 End: 06-01-[address] Nicky Covarrubias MD -[facility] Work Phone: Start: 06-01-2024 End: 06-01-2024 ambulatory [facility] Facility:[facility] Start: 05-29-2024 End: 05-29-2024 Patient encounter procedure Mk TABOR -Laboratory, Specimen Work Phone: Start: 05-28-2024 End: 05-28-2024 Patient encounter procedure Dustin Botello NP-C -[facility] Work Phone: Start: 05-28-2024 End: 05-29-2024 ambulatory [facility] Facility:[facility] Start: 05-24-2024 Non-patient / Non-visit Dr. Nany Kebede MD -[facility] Work Phone: Start: 05-23-2024 Non-patient / Non-visit Dr. Nany Kebede MD -[facility] Work Phone: Start: 05-22-2024 Non-patient / Non-visit Dr. Nany Kebede MD -[facility] Work Phone: Start: 05-21-2024 Non-patient / Non-visit Dr. Zelalem Whiteside DO -[facility] Work Phone: Start: 05-20-2024 Non-patient / Non-visit Dr. Zelalem Whiteside [facility] Work Phone: Start: 05-19-2024 ambulatory [facility] ility:[facility] Start: 05-19-2024 End: 05-24-2024 Evaluation and management of inpatient Dr. Nany Kebede MD -Progressive Care Unit Work Phone: Start: 05-19-2024 End: 05-19-2024 Patient encounter procedure BIM NURSE -[facility] Work Phone: Start: 05-19-2024 End: 05-19-2024 ambulatory Efpiter Péreze Facility:[facility] Start: 05-16-2024 End: 05-16-[address] [facility] Work [facility] Start: 05-16-2024 End: 05-16-2024 ambulatory Efewongbe Olee Facility:[facility] Start: 04-27-2024 End: 04-27-[address] Nicky Covarrubias MD -[facility] Work Phone: Start: 04-27-2024 End: 04-27-2024 ambulatory Efewongbe Oleghe Facility:[facility] Start: 04-27-2024 End: 04-27-2024 ambulatory Efewongbe Oleghe Facility:[facility] Start: 12-23-2023 End: 12-23-2023 ambulatory Efewongbe Oleghe Facility:[facility] Start: 11-18-2023 End: 11-18-2023 ambulatory Efewongbe Oleghe Facility:[facility] Start: 09-30-2023 ambulatory Efewongbe Oleghe Facili ty:[facility] Start: 09-30-2023 End: 09-30-2023 ambulatory Efewongbe Olee Facility:[facility] Start: 03-31-2023 End: 03-31-[address] Nicky Covarrubias Work Phone: [facility] Work Phone: Start: 03-31-2023 End: 03-31-[address] Nicky Covarrubias Work Phone: [facility] Work Phone: Start: 12-31-[address] Nicky Covarrubias Work Phone: [facility] Start: 12-31-2022 End: 12-31-[address] Nicky Covarrubias Work Phone: [facility] Work Phone: Start: 12-19-2022 End: 12-19-[address] Nicky Covarrubias Work Phone: [facility] Work Phone: Start: 06-17-2022 End: 06-17-[address] Nicky Covarrubias Work Phone: [facility] Work Phone: Start: 06-17-2022 End: 06-17-[address] Nicky Covarrubias Work Phone: [facility] Start: 05-06-2022 End: 05-06-[address] Nicky Covarrubias Work Phone: [facility] Internal [facility] Start: 03-23-2022 End: 03-23-[address] Nicky Covarrubias Work Phone: [facility] Work Phone: Start: 03-23-2022 End: 03-23-[address] Nicky Covarrubias Work Phone: [facility] Start: 12-29-2021 End: 12-29-[address] Nicky Covarrubias Work Phone: [facility] Start: 10-08-2021 End: 10-08-[address] Nicky Covarrubias Work Phone: [facility] Start: 09-30-2021 End: 09-30-[address] Nicky Covarrubias Work Phone: [facility] Internal Medicine Start: 08-20-2021 End: 08-20-[address] Nicky Covarrubias Work Phone: [facility] Internal Medicine Start: 07-28-2021 Non-patient / Non-visit Dr. Lorena Covarrubias Work Phone: [facility] Start: 07-04-2021 End: 07-04-[address] Nicky Covarrubias Work Phone: [facility]-Labor[facility] Start: 04-28-2021 End: 04-28-[address] Nicky Covarrubias Work Phone: [facility] Start: 04-24-2021 End: 04-24-[address] Nicky Covarrubias Work Phone: [facility] Internal [facility] Start: 04-22-2021 End: 04-22-[address] Nicky Covarrubias Work Phone: [facility] Start: 04-01-2021 End: 04-01-[address] Nicky Covarrubias Work Phone: [facility] Int Med Virtual Start: 10-03-[address] Nicky Covarrubias Work Phone: [facility] Procedures Date Procedure Procedure Detail Performing Clinician Start: 05-29-[address] Beatriz Covarrubias MD Work Phone: Start: 05-24-[address] Nicky Covarrubias MD Work Phone: Start: 05-24-2024 Measurement of renal function Dr. Nicky Covarrubias MD Work Phone: Comment on above: GFR Calc Start: 05-22-2024 Assay of phosphorus inorganic Dr. Nicky Covarrubias MD Work Phone: Start: 05-22-2024 Lymphocyte percent differential count Dr. Nicky Covarrubias MD Work Phone: Start: 05-19-2024 CT angiography of ch est with contrast Dr. Nicky Covarrubias MD Work Phone: Start: 05-19-2024 X-ray of chest, PA a nd lateral views Dr. Nicky Covarrubias MD Work Phone: Start: 05-19-2024 D-dimer assay, quantitative Dr. Nicky Covarrubias MD Work Phone: Comment on above: D-Dimer ELEVATED (>0 .49): Additional studies and clinicalassessments are indicated to conclude diagnosis of:Deep Vein Thrombosis (DVT) or Pulmonary Embolism (PE)RESULTS CALLED TO DAVID 05/19/24 Helga Quinonez.REPORT READ BACK BY . SAME Start: 05-19-2024 SARS-CoV-2, Influenz a & RSV (PCR) Dr. Nicky Covarrubias MD Work Phone: Start: 05-16-2024 X-ray of chest, PA a nd lateral views Dr. Nicky Covarrubias MD Work Phone: Start: 04-28-2021 Screening mammography Clif Covarrubias Work Phone: Start: 04-28-[address] Chris Covarrubias Work Phone: Plan of Treatment Date Care Activity Detail Author Start: 09-18-2024 Polysomnography [facility] Start: 09-05-2024 Walking distance 6 minutes [facility] Start: 08-23-2024 Patient referral [facility] Work Phone: Start: 06-01-2024 Patient referral [facility] Work Phone: Start: 05-24-2024 Patient discharge [facility] Start: 05-21-2024 Provision of activity privileges [facility] Start: 05-20-2024 [facility] Start: 05-19-2024 Respiratory secretion precautions [facility] Start: 05-19-2024 Ambulation without limitation [facility] Start: 05-19-2024 Assessment of risk of venous thromboembolism [facility] Start: 05-19-2024 Inhalation therapy procedure [facility] Start: 05-19-2024 Insertion of catheter into peripheral vein [facility] Start: 05-19-2024 Oxygen therapy [facility] Start: 05-19-2024 Providing care according to standard [facility] Start: 05-19-2024 Referral to service [facility] Start: 05-19-2024 [facility] Start: 05-19-2024 Following clinical pathway protocol [facility] Start: 05-19-2024 Admission procedure [facility] Start: 05-19-2024 Patient referral to dietitian [facility] Start: 12-31-2022 Patient referral [facility] Work Phone: CT Chest [facility] MG Breast - bilatera l Screening [facility] MG Breast - bilatera l Screening [facility] Patient Education ED Influenza (Adult) [facility] Work Phone: Patient referral [facility] Work Phone: [facility] Immunizations Immunization Date Immunization Notes Care Provider Fa cility 07-25-2020 Covid (Pfizer) Dr. Nicky Covarrubias Work Phone: [facility] 07-04-2020 Covid (Pfizer) Dr. Nicky Covarrubias Work Phone: [facility] Payers Date Payer Category Payer Unknown [id number] 2024 Unknown [id number] 2023 Self-pay [id number] 2014 Unknown [id number] 2014 Unknown [id number] Unknown [id number] 2.16.8 [id number] Unknown [id number] 2.16.8 [id number] Unknown [id number] 2.16.8 [id number] Unknown [id number] 2.16.8 [id number] Unknown [id number] 2.16.8 [id number] Unknown [id number] 2.16.8 [id number] Unknown [id number] 2.16.8 [id number] Unknown [id number] 2.16.8 [id number] Unknown [id number] 2.16.8 [id number] Unknown [id number] 2.16.8 [id number] Unknown [id number] 2.16.8 [id number] Unknown [id number] 2.16.8 [id number] Unknown [id number] 2.16.8 [id number] Unknown [id number] 2.16.8 [id number] Unknown [id number] 2.16.8 [id number] Unknown [id number] 2.16.8 [id number] Unknown [id number] 2.16.8 [id number] Unknown [id number] 2.16.8 [id number] Unknown [id number] 2.16.8 [id number] Unknown [id number] 2.16.8 [id number] Unknown [id number] 2.16.8 [id number] Unknown [id number] 2.16.8 [id number] Unknown [id number] 2.16.8 [id number] Unknown [id number] 2.16.8 [id number] Unknown [id number] 2.16.8 [id number] Unknown [id number] 2.16.8 [id number] Unknown [id number] 2.16.8 [id number] Unknown [id number] 2.16.8 [id number] Social History Date Type Detail Facility Start: 04-24-2021 End: 03-31-2023 Tobacco smoking status NCIS Unknown if ever smoked [facility] Start: 08-21-2020 Non-smoker [facility] Start: 1965 Sex Assigned At Female W [facility] Start: 05-19-2024 Tobacco smoking stat us NCIS Ex-smoker (finding) [facility] Start: 07-05-2024 End: 08-14-2024 Sex Female (finding) [facility] Goals Date Patient Goal Desired Activity /State Functional Status Date Assessment Result Facility 05-24-2024 Functional status Ambulates [facility] Work Phone: 05-22-2024 Functional status None [facility] Work Phone: Mental Status Date Assessment Result Facility 05-24-2024 Cognitive function Voice/Name [facility] Work Phone: Procedure note 09-11-2024 Note Date & Type Note Facility 09-11-2024 Procedure note [facility] Discharge summary note 05-24-2024 Note Date & Type Note Facility 05-24-2024 Note [facility] Medical Records Department [address] [place] [address] Discharge Summary 05/24/24 1459 MR#: [id number] Acct: [id number] Name: HONG KHAN Rep #: [id number] : 1965 58 From: Nany Kebede MD PCP: Dr. Nicky Covarrubias MD Status:DIS IN Location: [place] [id number] Providers Date of Admission: 05/19/24 Date of Discharge: 05/24/24 Primary Care Physician: Dr. Nicky Covarrubias MD Reason For Visit: FLU A INFECTION WITH HYPOXIA AND CIARAN Diagnosis Discharge Diagnosis (1) Influenza A: Status: Acute Code(s): J10.1 - Influenza due to other identified influenza virus with other respiratory manifestations (2) Hypoxia: Status: Acute Code(s): R09.02 - Hypoxemia (3) Dyspnea: Status: Acute Code(s): R06.00 - Dyspnea, unspecified (4) Chronic cough: Status: Chronic Code(s): R05.3 - Chronic cough (5) Bronchitis: Status: Acute Code(s): J40 - Bronchitis, not specified as acute or chronic Plan #Hypoxia due to influenza A infection * her breathing is improving and lung sound less tight today. * On 2 L of oxygen by nasal cannula this morning but was weaned down to room air. Breathing treatments bronchodilators. On IV Solu-Medrol and Tamiflu. * Encourage incentive spirometer use. Titrate oxygen to maintain saturation above 90%. * #CIARAN: resolved. #Benign essential hypertension: On amlodipine. IV hydralazine. #Depression: On Zoloft #Rheumatoid arthritis: On Plaquenil #Pulmonary nodule: * CT of the chest done on admission showed evidence of a 7 mm peripheral pulmonary nodule in the right lower lobe. * She is follow-up with her PCP for further imaging as deemed necessary. * #Super morbid obesity: BMI is 46.8. Complicates acute care, expected recovery and prognosis. #DVT prophylaxis: Lovenox Medications at Discharge Home Medications loratadine 10 mg tablet (Claritin) 10 mg PO DAILY congestion 05/23/20 melatonin 5 mg capsule 5 mg PO QHS sleep 05/23/20 hydroxychloroquine 200 mg tablet (Plaquenil) 200 mg PO BID #60 tabs 06/03/22 folic acid 1 mg tablet 1 mg PO BID supplement #90 tabs 06/15/22 methotrexate sodium 2.5 mg tablet 20 mg PO QWEEK RA 09/24/22 albuterol sulfate 90 mcg/actuation aerosol inhaler 2 puff inhalation Q6H PRN shortness of breath or wheezing #8.5 grams 09/23/23 rizatriptan 10 mg tablet 10 mg PO ONCE PRN migraine headache 12/23/23 amlodipine 5 mg tablet 5 mg PO DAILY blood pressure #90 TABLETS 01/31/24 sertraline 50 mg tablet 50 mg PO DAILY mental health #90 TABLETS 01/31/24 benzonatate 100 mg capsule 100 mg PO BID-TID PRN cough #90 caps 04/27/24 fluticasone furoate 100 mcg-vilanterol 25 mcg/dose inhalation powder (Breo Ellipta) 1 inh inhalation Q24H breathing #60 ea 05/15/24 buspirone 7.5 mg tablet 7.5 mg PO BID mood 05/19/24 prednisone 20 mg tablet 40 mg (2 x 20 mg) PO DAILY #10 tabs 05/24/24 Hospital Course Operations None Procedures None Summary of Care Provided Minutes Spent on Discharge: 45 Hospital Course: Patient is a 58 y/o female with a PMH as outlined who was admitted via the ED On 05/19/2024 with a complaint of shortness of breath and upper respiratory symptoms. She had had a cough and fatigue for several weeks prior to admission and had been eating and drinking well. His symptoms were not improving so she came to the ED. She was tachycardic in the ED and required 3 L of oxygen. She had a remote history of smoking and had quit about 15 years prior to admission. Respiratory panel was positive for influenza. She says she did not receive the influenza vaccine this season. She was admitted and managed for hypoxia due to influenza. She was placed on IV Solu-Medrol and breathing treatments bronchodilators. She was also placed on Tamiflu. Patient had a prolonged hospital course and slowly improved. Her shortness of breath gradually improved and she was weaned down and off of oxygen. She had a walking pulse ox on 05/24/2024 which showed she did not require any oxygen. She was therefore discharged home on 05/24/2024. She was discharged the prescription for p.o. prednisone 40 mg daily for 5 days. She is follow-up with her primary care doctor within 1 to 2 weeks. Patient seen and examined prior to discharge. She had no active complaints. Review of symptoms otherwise negative. Labs and vitals reviewed. Home medications reviewed and reconciled. Physical Exam Const alert, oriented x3, no apparent distress and average body habitus Constitutional Narrative: morbidly obese General Appearance: cooperative, comfortable, well kempt and well developed Orientation / Consciousness: awake, oriented to person, oriented to place and oriented to time Exam Limitations: no limitations HEENT normocephalic, head/scalp atraumatic, hearing grossly normal bilaterally, nasal mucous membranes and turbinates normal, moist oral mucous membranes and orop (more content not included)... [facility] Evaluation note 05-19-2024 Note Date & Type Note Facility 05-19-2024 Evaluation note Diagnosis Onset Date Resolution Bronchitis acute May 19, 2024 6:08pm Chronic cough chronic April 6:08pm Dyspnea resolved May 19, 2024 6:08pm Hypoxia resolved May 19, 2024 6:08pm Influenza A resolved May 19, 2024 6:08pm Influenza acute May 28, 2024 9:23am Urinary tract infection noneactive F ebruary 2024 9:23am Bronchitis acute June 01, 2024 5:51pm Fatigue acute June 01, 2024 5:51pm History of smoking 30 or more pack years acute May 5:51pm Influenza acute June 01, 2024 5:51pm Chronic cough chronic June 012024 5:51pm Hypertension chronic May 5:51pm Rheumatoid arthritis chronic Febr [email or web address] 5:51pm Bronchitis acute June 15, 2024 12:23pm Solitary pulmonary nodule acute August 01, 2024 10:41am Asthma-COPD overlap syndrome chronic August 01, 2024 10:41am Chronic cough chronic August 01, 2024 10:41am Health care maintenance acute M 2024 2:33pm COPD (chronic obstructive pulmonary disease) chronic August 23, 2024 2: 33pm Generalized anxiety disorder chronic August 23, 2024 2: 33pm Hypertension chronic August 23 2:33pm MARIELLA (obstructive sleep apnea) chronic August 23, 2024 2: 33pm [facility] Work Phone: Evaluation note 04-27-2024 Note Date & Type Note Facility 04-27-2024 Evaluation note Diagnosis Onset Date Resolution Bronchitis acute April 27, 2 025 2:42pm Generalized anxiety disorder chronic April 27 2:42pm Hypertension chronic April 27, 2024 2:42pm Rheumatoid arthritis chronic Saad amelia 2024 2:42pm Bronchitis acute May 19, 2024 6:08pm Chronic cough chronic April 6:08pm Dyspnea resolved May 19, 2024 6:08pm Hypoxia resolved May 19, 2024 6:08pm Influenza A resolved May 19, 2024 6:08pm Influenza acute May 28, 2024 9:23am Urinary tract infection noneactive F ebruary 2024 9:23am Bronchitis acute June 01, 2024 5:51pm Fatigue acute June 01, 2024 5:51pm History of smoking 30 or more pack years acute May 5:51pm Influenza acute June 01, 2024 5:51pm Chronic cough chronic June 012024 5:51pm Hypertension chronic May 5:51pm Rheumatoid arthritis chronic Febr [email or web address] 5:51pm Bronchitis acute June 15, 2024 12:23pm [facility] Work Phone: Evaluation note 04-27-2024 Note Date & Type Note Facility 04-27-2024 Evaluation note Diagnosis Onset Date Resolution Bronchitis acute April 27, 2 025 2:42pm Generalized anxiety disorder chronic April 27 2:42pm Hypertension chronic April 27, 2024 2:42pm Rheumatoid arthritis chronic Saad amelia 2024 2:42pm Bronchitis acute May 19, 2024 6:08pm Chronic cough chronic April 6:08pm Dyspnea resolved May 19, 2024 6:08pm Hypoxia resolved May 19, 2024 6:08pm Influenza A resolved May 19, 2024 6:08pm Influenza acute May 28, 2024 9:23am Urinary tract infection noneactive F ebruary 2024 9:23am Bronchitis acute June 01, 2024 5:51pm Fatigue acute June 01, 2024 5:51pm History of smoking 30 or more pack years acute May 5:51pm Influenza acute June 01, 2024 5:51pm Chronic cough chronic June 012024 5:51pm Hypertension chronic May 5:51pm Rheumatoid arthritis chronic Febr uary 2024 5:51pm Bronchitis acute June 15, 2024 12:23pm Solitary pulmonary nodule acute August 01, 2024 10:41am Asthma-COPD overlap syndrome chronic August 01, 2024 10:41am Chronic cough chronic August 01, 2024 10:41am [facility] Work Phone: Evaluation note Note Date & Type Note Facility Evaluation note Diagnosis Onset Date History of smoking 30 or more pack years acute Morbid obesity acute Hypertension chronic [facility] Work Phone: Evaluation note Note Date & Type Note Facility Evaluation note Diagnosis Onset Date Morbid obesity acute Hypertension chronic Rheumatoid arthritis chronic Anxiety noneactive [facility] Work Phone: Evaluation note Note Date & Type Note Facility Evaluation note Diagnosis Onset Date Generalized anxiety disorder chronic Generalized anxiety disorder chronic Hypertension chronic Migraines chronic Rheumatoid arthritis [facility] Work Phone: Evaluation note Note Date & Type Note Facility Evaluation note Diagnosis Onset Date Generalized anxiety disorder chronic Hypertension chronic Migraines chronic Rheumatoid arthritis chronic Hypertension chronic Migraines chronic Rheumatoid arthritis chronic [facility] Work Phone: Evaluation note Note Date & Type Note Facility Evaluation note Diagnosis Onset Date Pneumonia acute Acute bronchitis acute Generalized anxiety disorder chronic Hypertension chronic Migraines chronic Generalized anxiety disorder chronic Hypertension chronic Migraines chronic [facility] Work Phone: Chief Complaint and Reason for Visit Chief Complaint COVID TEST phone- covid symptoms ARTHRITIS/PAIN-COPY PCP 3 M FU NODULE/SCREENING *BOOSTER 01/30/21 Reason for Visit History of smoking 3 0 or more pack years Morbid obesity Hypertension Chief Complaint Amb Documentation 4 M FU acute anxiety Reason for Visit Morbid obesity Hypertension Rheumatoid arthritis Anxiety Chief Complaint 1 M FU 6 M FU Reason for Visit Generalized anxiety disorder Generalized anxiety disorder Hypertension Migraines Rheumatoid arthritis Chief Complaint 6 M FU 6 wk FU Reason for Visit Generalized anxiety disorder Hypertension Migraines Rheumatoid arthritis Hypertension Migraines Rheumatoid arthritis Chief Complaint COUGH/SORE THROAT 3 m fu 3 M FU Reason for Visit Pneumonia Acute bronchitis Generalized anxiety disorder Hypertension Migraines Generalized anxiety disorder Hypertension Migraines Chief Complaint Admit Date 4 M FU April 27, 2024 2: 42pm Cough May 16, 2024 3 :28pm PULSE OX CHECK May 19, 2024 2 :14pm FLU A INFECTION WITH HYPOXIA AND CIARAN Silvestre uary 2024 6:08pm FLU A INFECTION WITH HYPOXIA AND CIARAN Feb ruary 2024 12:49pm FLU A INFECTION WITH HYPOXIA AND CIARAN Feb ruary 2024 1:37pm FLU A INFECTION WITH HYPOXIA AND CIARAN Feb ruary 2024 12:16pm FLU A INFECTION WITH HYPOXIA AND CIARAN Feb ruary 2024 1:06pm FLU A INFECTION WITH HYPOXIA AND CIARAN Feb ruary 2024 2:59pm Urinary tract infection May 28 9:23am [facility] FU June 01, 2024 5:51pm ACUTE [address] COVARRUBIAS May 212024 12:23pm R05.3 - Chronic cough June 28, 2024 9 :23am Reason for Visit Admit Date Bronchitis April 27, 2024 2: 42pm Generalized anxiety disorder April 2:42pm Hypertension April 27, 2024 2: 42pm Rheumatoid arthritis April 27, 2024 2 :42pm Bronchitis May 19, 2024 6 :08pm Chronic cough May 19, 2024 6 :08pm Dyspnea May 19, 2024 6 :08pm Hypoxia May 19, 2024 6 :08pm Influenza A May 19, 2024 6 :08pm Influenza May 28, 2024 9 :23am Urinary tract infection May 28 9:23am Bronchitis June 01, 2024 5:51pm Fatigue June 01, 2024 5:51pm History of smoking 30 or more pack years June 01, 2024 5:51pm Influenza June 01, 2024 5:51pm Chronic cough June 01, 2024 5:51pm Hypertension June 01, 2024 5:51pm Rheumatoid arthritis June 01, 2024 5:51pm Bronchitis June 15, 2024 12:23pm Chief Complaint Admit Date 4 M FU April 27, 2024 2: 42pm Cough May 16, 2024 3 :28pm PULSE OX CHECK May 19, 2024 2 :14pm FLU A INFECTION WITH HYPOXIA AND CIARAN Silvestre uary 2024 6:08pm FLU A INFECTION WITH HYPOXIA AND CIARAN Feb ruary 2024 12:49pm FLU A INFECTION WITH HYPOXIA AND CIARAN Feb ruary 2024 1:37pm FLU A INFECTION WITH HYPOXIA AND CIARAN Feb ruary 2024 12:16pm FLU A INFECTION WITH HYPOXIA AND CIARAN Feb ruary 2024 1:06pm FLU A INFECTION WITH HYPOXIA AND CIARAN Feb ruary 2024 2:59pm Urinary tract infection May 28 9:23am [facility] FU June 01, 2024 5:51pm ACUTE [address] COVARRUBIAS May 212024 12:23pm R05.3 - Chronic cough June 28, 2024 9 :23am CHRONIC COUGH August 01, 2024 10: 41am Reason for Visit Admit Date Bronchitis April 27, 2024 2: 42pm Generalized anxiety disorder April 2:42pm Hypertension April 27, 2024 2: 42pm Rheumatoid arthritis April 27, 2024 2 :42pm Bronchitis May 19, 2024 6 :08pm Chronic cough May 19, 2024 6 :08pm Dyspnea May 19, 2024 6 :08pm Hypoxia May 19, 2024 6 :08pm Influenza A May 19, 2024 6 :08pm Influenza May 28, 2024 9 :23am Urinary tract infection May 28 9:23am Bronchitis June 01, 2024 5:51pm Fatigue June 01, 2024 5:51pm History of smoking 30 or more pack years June 01, 2024 5:51pm Influenza June 01, 2024 5:51pm Chronic cough June 01, 2024 5:51pm Hypertension June 01, 2024 5:51pm Rheumatoid arthritis June 01, 2024 5:51pm Bronchitis June 15, 2024 12:23pm Solitary pulmonary nodule August 01 10:41am Asthma-COPD overlap syndrome August 01, 2024 10:41am Chronic cough August 01, 2024 10: 41am Chief Complaint Admit Date Cough May 16, 2024 3 :28pm PULSE OX CHECK May 19, 2024 2 :14pm FLU A INFECTION WITH HYPOXIA AND CIARAN Silvestre uary 2024 6:08pm FLU A INFECTION WITH HYPOXIA AND CIARAN Feb ruary 2024 12:49pm FLU A INFECTION WITH HYPOXIA AND CIARAN Feb ruary 2024 1:37pm FLU A INFECTION WITH HYPOXIA AND CIARAN Feb ruary 2024 12:16pm FLU A INFECTION WITH HYPOXIA AND CIARAN Feb ruary 2024 1:06pm FLU A INFECTION WITH HYPOXIA AND CIARAN Feb ruary 2024 2:59pm Urinary tract infection May 28 9:23am [facility] FU June 01, 2024 5:51pm ACUTE [address] COVARRUBIAS May 212024 12:23pm R05.3 - Chronic cough June 28, 2024 9 :23am CHRONIC COUGH August 01, 2024 10: 41am 4 M FU August 23, 2024 2:33pm J44.9 - Chronic obstructive pulmonary di [facility] September 05, 2024 12:19pm J44.9 - Chronic obstructive pulmonary di [facility] September 11, 2024 7:19am Reason for Visit Admit Date Bronchitis May 19, 2024 6 :08pm Chronic cough May 19, 2024 6 :08pm Dyspnea May 19, 2024 6 :08pm Hypoxia May 19, 2024 6 :08pm Influenza A May 19, 2024 6 :08pm Influenza May 28, 2024 9 :23am Urinary tract infection May 28 9:23am Bronchitis June 01, 2024 5:51pm Fatigue June 01, 2024 5:51pm History of smoking 30 or more pack years June 01, 2024 5:51pm Influenza June 01, 2024 5:51pm Chronic cough June 01, 2024 5:51pm Hypertension June 01, 2024 5:51pm Rheumatoid arthritis June 01, 2024 5:51pm Bronchitis June 15, 2024 12:23pm Solitary pulmonary nodule August 01 10:41am Asthma-COPD overlap syndrome August 01, 2024 10:41am Chronic cough August 01, 2024 10: 41am Health care maintenance August 23, 2024 2: 33pm COPD (chronic obstructive pulmonary dise ase) August 23, 2024 2:33pm Generalized anxiety disorder August 23 2:33pm Hypertension August 23, 2024 2:33pm MARIELLA (obstructive sleep apnea) August 23 2:33pm Family History No Family History Records Found Relationship Condition Age at Onset Recorded Date/T layla mother Anxiety and depression Unknown Arthritis Unknown father Hypertension Unknown grandmother Osteoporosis Unknown Advance Directives No Advanced Directives Records Found Advance Directive Response Recorded Date/ Time Advance Directives No May 08, 2014 2:15pm Living Will No August 21, 2020 1: 20pm Power of Fruit Sorter No August 21, 2020 1:20pm Advance Directive Response Recorded Date/ Time Advance Directives No May 08, 2014 1:15pm Living Will No August 21, 2020 12 :20pm Power of Fruit Sorter No August 21, 2020 12:20pm Advance Directive Response Recorded Date/ Time Living Will No November 18, 2023 10:13am Power of Fruit Sorter No November 17 10:13am Living Will No May 19 9:28pm Power of Fruit Sorter No May 19, 2024 9:28pm Advance Directives No November 17 10:13am Advance Directive Response Recorded Date/ Time Living Will No November 18, 2023 10:13am Do you have a Healthcare Power of Fruit Sorter? No November 18, 2023 10:13am Living Will No May 19 9:28pm Do you have a Healthcare Power of Fruit Sorter? No May 19, 2024 9:28pm Advance Directives No November 17 10:13am Advance Directive Response Recorded Date/ Time Living Will No May 19 9:28pm Do you have a Healthcare Power of Fruit Sorter? No May 19, 2024 9:28pm Advance Directives No November 17 10:13am Summary Purpose Additional Source Comments Goals (unrecognized section and content) Goals may be documented in a n alternate sectionGoals may be documented in an alternate sectionGoals may be documented in an alternate sectionGoals may be documented in an alternate sectionGoals may be documented in an alternate section Care Teams (unrecognized sec tion and content) Team Status: Active Member Role Status Dates Dr. Reyes Grimaldo MD Family Provider Active Dr. Nicky Covarrubias MD Primary Care Provider Active Team Status: Inactive Member Role Status Dates Dr. Nicky Covarrubias MD Primary Care P ardender, Attending Provider, Referring Provider Active Team Status: Inactive Member Role Status Dates Dr. Nicky Covarrubias MD Primary Care Provider, Refer ring Provider Active TETO Mensah Attending Provider Active Team Status: Active Member Role Status Dates Dr. Nicky Covarrubias MD Primary Care Provider Active Team Status: Inactive Member Role Status Dates Dr. Nicky Covarrubias MD Primary Care Provider Active Start: April 27, 2024 End: April 27, 2024 Dr. Nicky Covarrubias MD Attending Provider Active Start: April 27, 2024 End: April 27, 2024 Dr. Nicky Covarrubias MD Referring Provider Active Start: April 27, 2024 End: April 27, 2024 Team Status: Inactive Member Role Status Dates Dr. Nicky Covarrubias MD Primary Care Provider Active Start: May 16, 2024 End: May 16, 2024 Dr. Nicky Covarrubias MD Attending Provider Active Start: May 16, 2024 End: May 16, 2024 Dr. Nicky Covarrubias MD Referring Provider Active Start: May 16, 2024 End: May 16, 2024 Team Status: Inactive Member Role Status Dates Dr. Nicky Covarrubias MD Primary Care Provider Active Start: May 19, 2024 End: May 19, 2024 Dr. Nicky Covarrubias MD Referring Provider Active Start: May 19, 2024 End: May 19, 2024 BIM NURSE Attending Provider Active Start: Jas may 2024 End: May 19, 2024 Team Status: Inactive Member Role Status Dates Dr. Nicky Covarrubias MD Primary Care Provider Active Start: May 19, 2024 End: May 24, 2024 Dr. Vikash Blake DO Emergency Provider Active Start: May 19, 2024 End: May 24, 2024 Dr. Oli Marcelino , DO Admit Provider Active Start: May 19, 2024 End: May 24, 2024 Dr. Oli Marcelino , DO Referring Provider Active Start: May 19, 2024 End: May 24, 2024 Dr. Oli Marcelino , DO Other Provider Active Start: May 19, 2024 End: May 24, 2024 Dr. Nany Kebede MD Attending Provider Active Start: May 19, 2024 End: May 24, 2024 Dr. Zelalem Ramires , DO Other Provider Active S tart: May 19, 2024 End: May 24, 2024 Team Status: Active Member Role Status Dates Dr. Nicky Covarrubias MD Primary Care Provider Active Start: May 20, 2024 Dr. Vikash Blake , Emergency Provider Active Start: May 20, 2024 Dr. Oli Marcelino , DO Admit Provider Active Start: May 20, 2024 Dr. Oli Marcelino , Other Provider Active Start: May 20, 2024 Dr. Zelalem Ramires , Attending Provider Active Start: May 20, 2024 Dr. Zelalem Ramires , DO Other Provider Active S tart: May 20, 2024 Team Status: Active Member Role Status Dates Dr. Nicky Covarrubias MD Primary Care Provider Active Start: May 21, 2024 Dr. Vikash Blake , Emergency Provider Active Start: May 21, 2024 Dr. Oli Marcelino , DO Admit Provider Active Start: May 21, 2024 Dr. Oli Marcelino , Other Provider Active Start: May 21, 2024 Dr. Zelalem Ramires , Attending Provider Active Start: May 21, 2024 Dr. Zelalem Ramires , Other Provider Active S tart: May 21, 2024 Team Status: Active Member Role Status Dates Dr. Nicky Covarrubias MD Primary Care Provider Active Start: May 22, 2024 Dr. Vikash Blake , Emergency Provider Active Start: May 22, 2024 Dr. Oli Marcelino , DO Admit Provider Active Start: May 22, 2024 Dr. Oli Marcelino , DO Other Provider Active Start: May 22, 2024 Dr. Nany Kebede MD Attending Provider Active Start: May 22, 2024 Dr. Nany Kebede MD Other Provider Active St art: May 22, 2024 Dr. Zelalem Ramires , DO Other Provider Active S tart: May 22, 2024 Team Status: Active Member Role Status Dates Dr. Nicky Covarrubias MD Primary Care Provider Active Start: May 23, 2024 Dr. Vikahs Blake DO Emergency Provider Active Start: May 23, 2024 Dr. Oli Marcelino , DO Admit Provider Active Start: May 23, 2024 Dr. Oli Marcelino DO Other Provider Active Start: May 23, 2024 Dr. Nany Kebede MD Attending Provider Active Start: May 23, 2024 Dr. Nany Kebede MD Other Provider Active St art: May 23, 2024 Dr. Zelalem Ramires , Other Provider Active S tart: May 23, 2024 Team Status: Active Member Role Status Dates Dr. Nicky Covarrubias MD Primary Care Provider Active Start: May 24, 2024 Dr. Vikash Blake , Emergency Provider Active Start: May 24, 2024 Dr. Oli Marcelino DO Admit Provider Active Start: May 24, 2024 Dr. Oli Marcelino DO Other Provider Active Start: May 24, 2024 Dr. Nany Kebede MD Attending Provider Active Start: May 24, 2024 Dr. Nany Kebede MD Other Provider Active St art: May 24, 2024 Dr. Zelalem Ramires , Other Provider Active S tart: May 24, 2024 Team Status: Inactive Member Role Status Dates Dr. Nicky Covarrubias MD Primary Care Provider Active Start: May 28, 2024 End: May 28, 2024 Dr. Nicky Covarrubias MD Referring Provider Active Start: May 28, 2024 End: May 28, 2024 Dustin Botello SUPERVISOR DEHYDROGENATION, SUPERVISOR DEHYDROGENATION-C Attending Provider Active S tart: May 28, 2024 End: May 28, 2024 Team Status: Inactive Member Role Status Dates Dr. Nicky Covarrubias MD Primary Care Provider Active Start: May 29, 2024 End: May 29, 2024 Mk Fernandez PA, PA Attending Provider Active Sta rt: May 29, 2024 End: May 29, 2024 Team Status: Inactive Member Role Status Dates Dr. Nicky Covarrubias MD Primary Care Provider Active Start: June 01, 2024 End: June 01, 2024 Dr. Nicky Covarrubias MD Attending Provider Active Start: June 01, 2024 End: June 01, 2024 Dr. Nicky Covarrubias MD Referring Provider Active Start: June 01, 2024 End: June 01, 2024 Team Status: Inactive Member Role Status Dates Dr. Nicky Covarrubias MD Primary Care Provider Active Start: June 15, 2024 End: June 15, 2024 Dr. Nicky Covarrubias MD Referring Provider Active Start: June 15, 2024 End: June 15, 2024 SHARONA Pa Attending Provider Active St art: June 15, 2024 End: June 15, 2024 Team Status: Inactive Member Role Status Dates Dr. Nicky Covarrubias MD Primary Care Provider Active Start: June 28, 2024 End: June 28, 2024 Dr. Nicky Covarrubias MD Attending Provider Active Start: June 28, 2024 End: June 28, 2024 Dr. Nicky Covarrubias MD Referring Provider Active Start: June 28, 2024 End: June 28, 2024 Team Status: Inactive Member Role Status Dates Dr. Nicky Covarrubias MD Primary Care Provider Active Start: August 01, 2024 End: August 01, 2024 Dr. Nicky Covarrubias MD Referring Provider Active Start: August 01, 2024 End: August 01, 2024 TETO Jasso Attending Provider Active Start: August 01, 2024 End: August 01, 2024 Team Status: Inactive Member Role Status Dates Dr. Nicky Covarrubias MD Primary Care Provider Active Start: August 09, 2024 End: August 09, 2024 TETO Jasso Attending Provider Active Start: August 09, 2024 End: August 09, 2024 TETO Jasso Referring Provider Active Start: August 09, 2024 End: August 09, 2024 Team Status: Inactive Member Role Status Dates Dr. Nicky Covarrubias MD Primary Care Provider Active Start: May 19, 2024 End: May 19, 2024 Dr. Nicky Covarrubias MD Attending Provider Active Start: May 19, 2024 End: May 19, 2024 Dr. Nicky Covarrubias MD Referring Provider Active Start: May 19, 2024 End: May 19, 2024 Team Status: Inactive Member Role Status Dates Dr. Nicky Covarrubias MD Primary Care Provider Active Start: August 23, 2024 End: August 23, 2024 Dr. Nicky Covarrubias MD Attending Provider Active Start: August 23, 2024 End: August 23, 2024 Dr. Nicky Covarrubias MD Referring Provider Active Start: August 23, 2024 End: August 23, 2024 Team Status: Inactive Member Role Status Dates Dr. Nicky Covarrubias MD Primary Care Provider Active Start: September 05, 2024 End: September 05, 2024 TETO Jasso Attending Provider Active Start: September 05, 2024 End: September 05, 2024 TETO Jasso Referring Provider Active Start: September 05, 2024 End: September 05, 2024 Team Status: Active Member Role Status Dates Dr. Nicky Covarrubias MD Primary Care Provider Active Start: September 11, 2024 TETO Jasso Referring Provider Active Start: September 11, 2024 TETO Jasso Other Provider Active St art: September 11, 2024 Dr. Bryce Lo DO Attending Provider Active S tart: September 11, 2024 INFORMATION SOURCE (unrecogn ized section and content) DATE CREATED AUTHOR 09/24/2024 [facility] FOR RECORDS PERTAINING TO PATIENTS WHO ARE OR HAVE BEEN ENROLLED IN A CHEMICAL DEPENDENCY/SUBSTANCEABUSE PROGRAM, SOME INFORMATION MAY BE OMITTED. This clinical summary was aggregated from multiple sources. Caution should be exercised in using it in the provision of clinical care. This summary normalizes information from multiple sources, and as a consequence, information in this document may materially change the coding, format and clinical context of patient data. In addition, data may be omitted in some cases. CLINICAL DECISIONS SHOULD BE BASED ON THE PRIMARY CLINICAL RECORDS. [employer] provides no warranty or guarantee of the accuracy or completeness of information in this document.
== END | disposition home or self-care (01) ==
LOC: OPBI 10:14
PROVIDERS: PCP Internal Medicine; Referring Provider Internal Medicine; Visit Provider Internal Medicine
DX: Z12.31 Encounter for screening mammogram for malignant neoplasm of breast (principal)
CPT/HCPCS: 77063; 77067

== ENCOUNTER → 2024-09-29 | Outpatient (CLI) | payer BC, OTHER, SELFPAY ==
--- NOTE | 2024-09-29 09:27 | RAD_ITS ---
PROCEDURE: CHEST PA AND LATERAL 09/29/2024 REASON FOR EXAM: COUGH, COPD EXACERBATION TECHNIQUE: Frontal and lateral views of the chest. COMPARISON: PA and lateral chest x-ray 05/19/2024. RAD/Chest PA and Lateral IMPRESSION: Lungs appear clear of acute disease, and unchanged. No pleural effusion or pneumothorax is noted. A partially calcified aorta is seen. No evidence of cardiomegaly. Mild thoracic spine degenerative changes are seen. No evidence of acute osseous change. Reading Location: [address]
== END | disposition home or self-care (01) ==
LOC: MTRAD 09:27
PROVIDERS: PCP Internal Medicine; Referring Provider Nurse Practitioner Family; Visit Provider Nurse Practitioner Family
DX: J44.1 Chronic obstructive pulmonary disease with (acute) exacerbation (principal); R05.9 Cough, unspecified
CPT/HCPCS: 71046

== ENCOUNTER → 2024-10-06 | Outpatient (CLI) | payer BC, OTHER, SELFPAY ==
[2024-10-06 17:02] LABS: Absolute Lymphocyte Count 2.33 X10^3/uL (0.83-4.51); Absolute Neutrophil Count 4.5 X10^3/uL (2.0-7.7); Basophil# 0.02 X10^3/uL; Basophil% 0.3 % (0-1); Eosinophil# 0.15 X10^3/uL; Eosinophils% 2.1 % (0-5); Hematocrit 39.7 % (37-47); Hemoglobin 12.4 g/dL (12.0-15.0); Lymphocyte # 2.33 X10^3/ul (0.83-4.51); Lymphocyte % 32.5 % (19-41); Mean Corp Hgb Conc 31.2 g/dL (32-36); Mean Corpuscular Hgb 27.6 pg (27.0-32.0); Mean Corpuscular Volume 88.4 fL (81-99); Mean Platelet Vol. 9.6 fl (6.2-12.0); Monocyte# 0.11 X10^3/uL; Monocyte% 1.5 % (0-10); NRBC Flagged by Analyzer 0 % (0-5); Neutrophil # 4.53 X10^3/uL (2.7-7.7); Neutrophil % 63.3 % (47-70); Platelet Count 281 K/mm3 (150-450); RBC Distribution Width CV 15.5 % (11.6-14.6); RBC Distribution Width SD 50.2 fl (35.1-43.9); Red Blood Count 4.49 M/mm3 (4.2-5.4); White Blood Count 7.2 K/mm3 (4.4-11.0)
[2024-10-06 17:16] LABS: Erythrocyte Sedimentation Rate 41 mm/hr (0-30)
== END | disposition home or self-care (01) ==
LOC: BIMLAB 13:21
PROVIDERS: PCP Internal Medicine
DX: R79.89 Other specified abnormal findings of blood chemistry (principal); R70.0 Elevated erythrocyte sedimentation rate; R79.82 Elevated C-reactive protein (CRP)
CPT/HCPCS: 36415; 85025; 85652; 86140

== ENCOUNTER → 2024-10-16 | Outpatient (CLI) | payer BC, OTHER, SELFPAY | END | disposition home or self-care (01) | PROVIDERS: PCP Internal Medicine; Referring Provider Internal Medicine; Visit Provider Internal Medicine | DX: G47.33 Obstructive sleep apnea (adult) (pediatric) (principal) | CPT/HCPCS: 95811 ==

== ENCOUNTER → 2024-10-31 | Outpatient (CLI) | payer BC, OTHER, SELFPAY ==
--- NOTE | 2024-10-31 08:30 | CT_ITS ---
PROCEDURE: CHEST WITHOUT CONTRAST 10/31/2024 REASON FOR EXAM: 7MM RLL NODULE, HISTORY OF SMOKING TECHNIQUE: Chest CT without contrast. Coronal and Sagittal reconstruction series were provided. One or more dose reduction techniques were used (e.g., Automated exposure control, adjustment of the mA and/or kV according to patient size, use of iterative reconstruction technique RADIATION DOSE SUMMARY: CTDlvol: 20.50 mGy DLP: 750.19 mGycm COMPARISON: Prior CT scan of the chest dated May 19, 2024. FINDINGS: Hardware: None Lymph nodes: Small benign-appearing bilateral axillary lymph nodes. No significant mediastinal lymph nodes are seen. Heart and Vasculature: The heart is nonenlarged. The pericardium is unremarkable. Coronary Artery Calcifications: Present Lungs and Airways: Slight decrease in size of the nodule in the peripheral lateral aspect of the right lower lobe as seen on axial image number 77 it presently measures 6 mm. There is evidence of volume loss and atelectasis in the posterior aspect of the lingula segment of the left upper lobe abutting the left major fissure. Pleura: No evidence of pleural effusion. Upper Abdomen: Unremarkable Bones: Degenerative changes of the thoracic spine. CT/Chest without Contrast IMPRESSION: Coronary artery calcification (CAC) is is present Interval slight decrease in size of the previously seen nodule in the lateral a spect of the right lower lobe presently measuring 6 mm. Atelectasis and volume loss in the posterior aspect of the lingular segment of the left upper lobe abutting the left major fissure. Reading Location: [place] [id number]
== END | disposition home or self-care (01) ==
LOC: CT 08:27
PROVIDERS: PCP Internal Medicine; Referring Provider Nurse Practitioner Family; Visit Provider Nurse Practitioner Family
DX: R91.1 Solitary pulmonary nodule (principal); Z87.891 Personal history of nicotine dependence
CPT/HCPCS: 71250

== ENCOUNTER → 2024-11-03 | Outpatient (CLI) | payer BC, SELFPAY ==
[2024-11-03 13:10] LABS: Hematocrit 43.4 % (37-47); Hemoglobin 13.3 g/dL (12.0-15.0); Immature Granulocytes Count 0.040 X10^3/uL (0.0-0.0); Mean Corp Hgb Conc 30.6 g/dL (32-36); Mean Corpuscular Volume 88.6 fL (81-99); Mean Platelet Vol. 9.7 fl (6.2-12.0); NRBC Flagged by Analyzer 0 % (0-5); Platelet Count 324 K/mm3 (150-450); RBC Distribution Width CV 15.5 % (11.6-14.6); RBC Distribution Width SD 50.5 fl (35.1-43.9); Red Blood Count 4.90 M/mm3 (4.2-5.4); White Blood Count 7.8 K/mm3 (4.4-11.0)
[2024-11-03 14:13] LABS: CRP 10.40 mg/L (0.0-3.0)
== END | disposition home or self-care (01) ==
PROVIDERS: PCP Internal Medicine
DX: M19.90 Unspecified osteoarthritis, unspecified site (principal); Z79.899 Other long term (current) drug therapy
CPT/HCPCS: 36415; 85025; 85652; 86140

== ENCOUNTER → 2024-11-03 | Outpatient (CLI) | payer BC, SELFPAY | END | disposition home or self-care (01) | PROVIDERS: PCP Internal Medicine; Visit Provider Internal Medicine | DX: Z46.89 Encounter for fitting and adjustment of other specified devices (principal) ==

== ENCOUNTER → 2024-12-28 | Outpatient (CLI) | payer BC, SELFPAY ==
[2024-12-28 12:26] LABS: Hematocrit 40.7 % (37-47); Hemoglobin 12.3 g/dL (12.0-15.0); Immature Granulocytes Count 0.030 X10^3/uL (0.0-0.0); Mean Corp Hgb Conc 30.2 g/dL (32-36); Mean Corpuscular Volume 88.1 fL (81-99); Mean Platelet Vol. 9.3 fl (6.2-12.0); NRBC Flagged by Analyzer 0 % (0-5); Platelet Count 338 K/mm3 (150-450); RBC Distribution Width CV 17.9 % (11.6-14.6); RBC Distribution Width SD 56.5 fl (35.1-43.9); Red Blood Count 4.62 M/mm3 (4.2-5.4); White Blood Count 6.2 K/mm3 (4.4-11.0)
== END | disposition home or self-care (01) ==
LOC: BIMLAB 10:58
PROVIDERS: PCP Internal Medicine; Referring Provider Internal Medicine; Visit Provider Internal Medicine
DX: M06.9 Rheumatoid arthritis, unspecified (principal)
CPT/HCPCS: 36415; 85025

== ENCOUNTER → 2024-12-29 | Outpatient (CLI) | payer BC, OTHER, SELFPAY ==
[2024-12-29 13:19] LABS: Ferritin 70 ng/mL (22-378); Iron 45 ug/dL (50-170); Iron Binding Capacity,Total 295 ug/dL (250-450); Iron Binding Capacity,Unsat 250 ug/dL (228-428)
== END | disposition home or self-care (01) ==
LOC: MTLAB 10:48
PROVIDERS: PCP Internal Medicine; Referring Provider Internal Medicine; Visit Provider Internal Medicine
DX: R71.8 Other abnormality of red blood cells (principal)
CPT/HCPCS: 36415; 82728; 83540; 83550

== ENCOUNTER → 2025-02-07 | Outpatient (CLI) | payer BC, SELFPAY ==
[2025-02-11 22:06] LABS: HPV APTIMA, High Risk Negative (Negative)
== END | disposition home or self-care (01) ==
LOC: LABSPEC 11:47
PROVIDERS: PCP Internal Medicine; Visit Provider Nurse Practitioner Women's Health
DX: Z12.4 Encounter for screening for malignant neoplasm of cervix (principal)
CPT/HCPCS: 87624; 88175; G0145

== ENCOUNTER 2025-02-27 09:04 | Outpatient (RCR) | payer BC, OTHER, SELFPAY | END 2025-03-18 23:59 | LOC: NS 09:04 | PROVIDERS: PCP Internal Medicine; Referring Provider Orthopaedic Surgery; Visit Provider Orthopaedic Surgery | DX: Z71.3 Dietary counseling and surveillance (principal); E66.01 Morbid (severe) obesity due to excess calories; Z68.43 Body mass index [BMI] 50.0-59.9, adult | CPT/HCPCS: 97802 ==

== ENCOUNTER → 2025-04-11 | Outpatient (CLI) | payer BC, OTHER, SELFPAY ==
--- OUTSIDE RECORDS SUMMARY | 2025-04-11 11:11 | XMS RPT_ITS | CCD ---
Author Organization [facility] Care Team Providers Care Society Editor Name Role Phone Dr. Nicky Covarrubias Primary Care Provider [phone] Dr. Nicky Covarrubias Referring Provider [phone] SHARONA Schmitz Attending Provider Dr. Nicky Mcnulty Attending Provider [phone] Dr. Nicky Covarrubias Primary Care Provider [phone] Britt HANSON, [...] Provider Dr. Nicky Covarrubias Attending Provider [phone] Marci MONAHAN, Dr. Saunders Primary Care Provider Marci MONAHAN, Dr. Saunders Attending Provider [phone] Marci MONAHAN, Dr. Saunders Referring Provider [phone] NURSE, BIM Attending Provider Unavailable Hayden AMBROSE, Dr. Suh Emergency Provider Chari AMBROSE, Dr. Baird Admit Provider Chari AMBROSE, Dr. Baird Referring Provider Chari AMBROSE, Dr. Baird Other Provider Delio MONAHAN, Dr. Nany Flowers Attending Provider Keyla AMBROSE, Dr. Masterson Other Provider Keyla AMBROSE, Dr. Masterson Attending Provider Delio MONAHAN, Dr. Nany Flowers Other Provider [facility] ENGINEERING SPECIALIST TECHNICIAN-C, Dustin Carbajal Attending Provider kM Cotton Attending Provider Adolfo Riggins Attending Provider Kayden ENGINEERING SPECIALIST TECHNICIAN-C, Zeinab Orr Attending Provider Kayden ENGINEERING SPECIALIST TECHNICIAN-CZeinab Referring Provider Marci MONAHAN, Dr. Saunders Primary Care Provider Marci MONAHAN, Dr. Saunders Attending Provider [phone] Marci MONAHAN, Dr. Saunders Referring Provider Kayden ENGINEERING SPECIALIST TECHNICIAN-CZeinab Other Provider Dr. Bryce Lo DO Attending Provider Marci MONAHAN, Dr. Saunders Primary Care Provider Marci MONAHAN, Dr. Saunders Attending Provider [phone] Marci MONAHAN, Dr. Saunders Referring Provider [phone] Camilo ENGINEERING SPECIALIST TECHNICIAN-C, Katey Attending Provider [phone] Ungerer ENGINEERING SPECIALIST TECHNICIAN-C, Katey Referring Provider [phone] Marci MONAHAN, Dr. Saunders Primary Care Provider Marci MONAHAN, Dr. Saunders Referring Provider [phone] Marci MONAHAN, Dr. Saunders Attending Provider [phone] Dr. Bryce Lo DO Attending Provider RACHANA RAMÍREZ Attending Provider Marci MONAHAN, Dr. Saunders Primary Care Provider Marci MONAHAN, Dr. Saunders Referring Provider [phone] Marci MONAHAN, Dr. Saunders Primary Care Provider Marci MONAHAN, Dr. Saunders Referring Provider [phone] Marci MONAHAN, Dr. Saunders Attending Provider [phone] RACHANA RAMÍREZ Attending Provider Marci MONAHAN, Dr. Saunders Primary Care Provider Kayden ENGINEERING SPECIALIST TECHNICIAN-C, Zeinab Orr Attending Provider Kayden HANSON-CZeinab Referring Provider Marci MONAHAN, Dr. Saunders Attending Provider [phone] Marci MONAHAN, Dr. Saunders Referring Provider [phone] Dr. Yosi Mtz DO Attending Provider Alma MONAHAN, Dr. Raphael Attending Provider Marci MONAHAN, Dr. Saunders Primary Care Physician Marci MONAHAN, Dr. Saunders Attending Physician [phone] Ungerer ENGINEERING SPECIALIST TECHNICIAN-C, Katey Attending Physician RACHANA RAMÍREZ Attending Physician Kayden ENGINEERING SPECIALIST TECHNICIAN-C, Zeinab Orr Attending Physician Kayden HANSON-CZeinab Referring Provider RACHANA RAMÍREZ Attending Physician Dr. Yosi Mtz DO Attending Physician [phone] Alma MONAHAN, Dr. Raphael Attending Physician Alan Weeks Attending Physician [phone] Marci MONAHAN, Dr. Saunders Primary Care Physician Marci MONAHAN, Dr. Saunders Attending Physician [phone] Marci MONAHAN, Dr. Saunders Referring Provider [phone] Marci MONAHAN, Dr. Saunders Primary Care Physician Zeinab Ross Attending Physician Zeinab Ross Referring Provider Marci MONAHAN, Dr. Saunders Referring Provider [phone] RACHANA RAMÍREZ Attending Physician Marci MONAHAN, Dr. Saunders Attending Physician [phone] Dr. Yosi Mtz DO Attending Physician Alma MONAHAN, Dr. Raphael Attending Physician Alan Weeks Attending Physician [phone] Dr. Yosi Mtz DO Referring Provider BrooklynClara Rodas Attending Physician [phone] Oleghe, Efewongbe Primary Care Unavailable Philippghe, Efewongbe Referring Unavailable Yosi Mtz Attending Unavailable Oleghe, Efewongbe Primary Care Unavailable Oleghe, Efewongbe Referring Unavailable Oleghe, Efewongbe Attending Unavailable Oleghe, Efewongbe Primary Care Unavailable Oleghe, Efewongbe Referring Unavailable Zeinab Monique Attending Unavailable Oleghe, Efewongbe Primary Care Unavailable Oleghe, Efewongbe Referring Unavailable Oleghe, Efewongbe Attending Unavailable Oleghe, Efewongbe Primary Care Unavailable Yosi Mtz Attending Unavailable WilversoYosi Referring Unavailable Oleghe, Efewongbe Attending Unavailable Oleghe, Efewongbe Referring Unavailable Oleghe, Efewongbe Primary Care Unavailable Oleghe, Efewongbe Primary Care Unavailable Oleghe, Efewongbe Referring Unavailable Oleghe, Efewongbe Attending Unavailable Oleghe, Efewongbe Primary Care Unavailable Katey Page Attending Unavailable Oleghe, Efewongbe Referring Unavailable Oleghe, Efewongbe Primary Care Unavailable Oleghe, Efewongbe Referring Unavailable Oleghe, Efewongbe Attending Unavailable Oleghe, Efewongbe Primary Care Unavailable Bryce Lo Attending Unavailable Oleghe, Efewongbe Referring Unavailable Oleghe, Efewongbe Primary Care Unavailable Oleghe, Efewongbe Referring Unavailable Alan Weeks Attending Unavailable Oleghe, Efewongbe Primary Care Unavailable Donavon Marquez Attending Unavailable Oleghe, Efewongbe Primary Care Unavailable Oleghe, Efewongbe Attending Unavailable Oleghe, Efewongbe Referring Unavailable Oli Marcelino Admitting Unavailable Oli Marcelino Referring Unavailable Oli Marcelino Consulting Unavailable Oleghe, Efewongbe Primary Care Unavailable Nany Kebede Attending Unavailable Zelalem Ramires Consulting Unavailable Oleghe, Efewongbe Primary Care Unavailable John ENGINEERING SPECIALIST TECHNICIAN, Clara Attending Unavailable Oleghe, Efewongbe Attending Unavailable Oleghe, Efewongbe Referring Unavailable Oleghe, Efewongbe Primary Care Unavailable Oleghe, Efewongbe Primary Care Unavailable RAMANA DAVID Attending Unavailable Oleghe, Efewongbe Primary Care Unavailable Zeinab Monique Referring Unavailable Zeinab Monique Attending Unavailable Oleghe, Efewongbe Primary Care Unavailable SOMRAMANA RODRIGUEZ Attending Unavailable Oleghe, Efewongbe Primary Care Unavailable Owenerer Katey Referring Unavailable UngereKatey owens Attending Unavailable Oleghe, Efewongbe Attending Unavailable Oleghe, Efewongbe Referring Unavailable Oleghe, Efewongbe Primary Care Unavailable Oleghe, Efewongbe Primary Care Unavailable Oleghe, Efewongbe Referring Unavailable Clara Lopez NP Attending Unavailable Oleghe, Efewongbe Primary Care Unavailable Zeinab Monique Attending Unavailable Oleghe, Efewongbe Referring Unavailable Adolfo Riggins Attending Unavailable Oleghe, Efewongbe Referring Unavailable Oleghe, Efewongbe Primary Care Unavailable Oleghe, Efewongbe Primary Care Unavailable Zeinab Monique Attending Unavailable Oleghe, Efewongbe Referring Unavailable Oleghe, Efewongbe Attending Unavailable Oleghe, Efewongbe Referring Unavailable Oleghe, Efewongbe Primary Care Unavailable Oleghe, Efewongbe Primary Care Unavailable Oleghe, Efewongbe Referring Unavailable Oleghe, Efewongbe Attending Unavailable Oleghe, Efewongbe Primary Care Unavailable Zeinab Monique Referring Unavailable Zeinab Monique Attending Unavailable Oleghe, Efewongbe Primary Care Unavailable Zeinab Monique Referring Unavailable Zeinab Monique Attending Unavailable Mk Cotton Attending Unavailable Oleghe, Efewongbe Primary Care Unavailable Oleghe, Efewongbe Primary Care Unavailable Oleghe, Efewongbe Referring Unavailable Oleghe, Efewongbe Attending Unavailable Oleghe, Efewongbe Attending Unavailable Oleghe, Efewongbe Referring Unavailable Oleghe, Efewongbe Primary Care Unavailable Dustin Botello NP Attending Unavailable Oleghe, Efewongbe Referring Unavailable Oleghe, Efewongbe Primary Care Unavailable Oleghe, Efewongbe Primary Care Unavailable Yosi Mtz Referring Unavailable Yosi Mtz Attending Unavailable Oleghe, Efewongbe Primary Care Unavailable Zeinab Monique Referring Unavailable Zeinab Monique Consulting Unavailable Bryce Lo Attending Unavailable Oli Marcelino Consulting Unavailable Oli Marcelino Admitting Unavailable Oli Marcelino Referring Unavailable KoramNany Attending Unavailable Oleghe, Efewongbe Primary Care Unavailable Zelalem Ramires Consulting Unavailable Delio, Nany Kristie Consulting Unavailable Zelalem Ramires Attending Unavailable Oli Marcelino Attending Unavailable Oleghe, Efewongbe Primary Care Unavailable Oleghe, Efewongbe Attending Unavailable Oleghe, Efewongbe Primary Care Unavailable Oleghe, Efewongbe Attending Unavailable Oleghe, Efewongbe Referring Unavailable Allergies Allergy Classification Reported Allergen(s) Allergy Type Date of Onset Reaction(s) Facility (20 sources) Erythromycin Drug Allergy 2 Vomiting [facility] (20 sources) HYDROcodone; Translations: [hydrocodone bitartrate] Drug Allergy 2 Rash [facility] (20 sources) Penicillins; Translations: [Penicillins] Propensity to adverse reactions 2 Upset Stomach [facility] (1 source) erythromycin base Drug allergy (disorder) 5 [facility] Repository Medications Current Medications Medication Drug Class(es) Dates Sig (Normalized) Sig (Original) amLODIPine 5 mg oral tablet (20 sources) Dihydropyridine Calcium Channel [place] Start: 01-15-2025 take 1 tablet by mouth once daily Start: 01-15-2025 take 1 tablet by reyes th once daily Start: 01-15-2025 take 1 tablet by reyes th once daily Start: 05-23-2020 End: 01-15-2025 take 1 tablet by mouth once daily Amlodipine 5 mg tablet Discontinued 5 mg PO DAILY 90 June 12, 2024 12:47pm January 15, 2025 8:15am blood pressure CPAP - Continuous Positive Airway Pressure([facility] INFORMATIONAL USE ONLY) (1 source) Start: 01-29-2025 CPAP - Continu ous Positive Airway Pressure([facility] INFORMATIONAL USE ONLY) Active 0 .Route .MEDSUPPLY January 28, 2025 11:00pm CPAP 12 DME- DASCO MASK- SMALL F&P SOLO NASAL MASK Ghfezkncfyv-Wpnjgjagz-Nnsjkf er (20 sources) Start: 02-23-2025 Start: 08-01-2024 End: 02-23-2025 Leygmeuvjla-Vdbfppgqf-Ghtngi er (Trelegy Ellipta) 200-62.5-25 mcg blister with device Discontinued 1 NMA INHALATION Q24H 60 July 31, 2024 11:00pm February 23, 2025 3:51pm Start: 08-01-2024 Fluticasone-Um eclidin-Vilanter (Trelegy Ellipta) 200-62.5-25 mcg blister with device Active 1 NMA INHALATION Q24H 60 August 01, 2024 12:00am Complies with drug therapy Start: 08-01-2024 Fluticasone-Um eclidin-Vilanter (Trelegy Ellipta) 200-62.5-25 mcg blister with device Active 1 NMA INHALATION Q24H 60 5 August 01, 2024 12:00am Start: 08-01-2024 Fluticasone-Um eclidin-Vilanter (Trelegy Ellipta) 200-62.5-25 mcg blister with device Active 1 NMA INHALATION Q24H 60 August 01, 2024 12:00am folic acid 1 mg oral tablet (20 sources) Start: 03-23-2022 End: 06-15-2022 take 1 tablet by mouth twice daily Start: 08-20-2021 End: 03-23-2022 take 0.4 mg by mouth once daily Folic Acid 400 mcg tablet Discontinued 0.4 mg PO DAILY August 19, 2021 11:00pm March 23, 2022 9:48am Start: 08-20-2021 End: 03-23-2022 take 0.4 mg by mouth once daily Folic Acid Discontinued 0.4 MG PO DAILY August 19, 2021 11:00pm March 23, 2022 9:48am loratadine 10 mg oral tablet (20 sources) Start: 05-23-2020 take 1 tablet by mouth once daily melatonin 5 mg oral capsule (20 sources) Start: 05-23-2020 take 1 capsule by mouth at bedtime methotrexate 2.5 mg oral tablet (20 sources) Folate Analog Metabolic Inhibitor Start: 09-24-2022 Start: 09-24-2022 take 20 mg by mouth every week Methotrexate Sodium Active 20 MG PO EVERY WEEK September 24, 2022 1:46pm Start: 01-02-2021 End: 09-24-2022 take 7 tablets by mouth every week Methotrexate Sodium 2.5 mg tablet Discontinued 17.5 mg PO EVERY WEEK 35 30 July 14, 2022 9:36am September 24, 2022 1:48pm 7 pills one day per week Start: 01-02-2021 End: 09-24-2022 take 7 doses by mouth every week Methotrexate Sodium Discontinued 17.5 MG PO EVERY WEEK 35 July 14, 2022 9:36am September 24, 2022 1:48pm 7 pills one day per week Start: 08-21-2020 End: 01-02-2021 take 5 tablets by mouth every week Methotrexate Sodium 2.5 mg tablet Discontinued 2.5 mg PO EVERY WEEK August 20, 2020 11:00pm January 02, 2021 2:09pm 5 pills one day per week rizatriptan 10 mg oral tablet (20 sources) Serotonin-1b and Serotonin-1d Receptor Agonist Start: 09-28-2022 End: 12-23-2023 take 1 tablet by mouth once as needed for headache Completed/Discontinued Medications Medication Drug Class(es) Dates Sig (Normalized) Sig (Original) 2 Quil (20 sources) Start: 05-23-2020 End: 05-23-2020 2 Quil Discontinued MC May 23, 2020 11:58am May 23, 2020 3:28pm 15mL daily Start: 05-23-2020 End: 05-23-2020 2 Quil Discontinued MC 0 Feb [email or web address] 2020 12:00am May 23, 2020 2:28pm 15mL daily Start: 05-23-2020 End: 05-23-2020 2 Quil Discontinued MC 0 Feb [place] 2020 1:00am May 23, 2020 3:28pm 15mL daily Start: 05-23-2020 End: 05-23-2020 2 Quil Discontinued MC [email or web address] 12:00am May 23, 2020 2:28pm 15mL daily Start: 05-23-2020 End: 05-23-2020 2 Quil Discontinued MC [place] 2020 1:00am May 23, 2020 3:28pm 15mL daily acetaminophen 325 mg oral capsule (20 sources) Start: 05-23-2020 End: 05-21-2024 take 1 capsule by mouth once as needed for pain Acetaminophen 325 mg capsule Discontinued 325 mg PO ONCE as needed for Pain May 23, 2020 12:00am May 21, 2024 2:26pm [id number] 200 actuat albuterol 0.09 mg/actuat metered dose inhaler (20 sources) beta2-Adrenerg ic Agonist Start: 12-19-2022 End: 06-21-2024 Albuterol Sulfate 90 mcg/actuation HFA aerosol inhaler Discontinued 2 NMA INHALATION EVERY 6 HOURS as needed for shortness of breath or wheezing 8.5 3 September 23, 2023 2:34pm June 21, 2024 2:07pm Cough Cough, unspecified Start: 12-19-2022 take 1 puff(s) by in halation every six hours Albuterol Sulfate Active 2 PUFF INHALATION EVERY 6 HOURS 8.5 December 18, 2022 11:00pm Albuterol-Budesonide (5 sources) Start: 04-27-2024 End: 05-15-2024 Albuterol-Budesonide (Airsup ra) 90-80 mcg/actuation HFA aerosol inhaler Discontinued 2 NMA INHALATION THREE TIMES A DAY as needed for shortness of breath 10.7 2 April 27, 2024 12:00am May 15, 2024 9:24am as a single dose; may repeat up to 6 doses per day (12 inhalations) Start: 04-27-2024 End: 05-15-2024 Albuterol-Budesonide (Airsup ra) 90-80 mcg/actuation HFA aerosol inhaler Discontinued 2 NMA INHALATION THREE TIMES A DAY as needed for shortness of breath 10.7 2 April 27, 2024 1:00am May 15, 2024 10:24am as a single dose; may repeat up to 6 doses per day (12 inhalations) Albuterol-Budesonide (Airsup ra) 90-80 mcg/actuation HFA aerosol inhaler (16 sources) Start: 04-27-2024 End: 05-15-2024 Albuterol-Budesonide (Airsup ra) 90-80 mcg/actuation HFA aerosol inhaler Discontinued 2 NMA INHALATION THREE TIMES A DAY as needed for shortness of breath 10.7 2 April 27, 2024 1:00am May 15, 2024 10:24am as a single dose; may repeat up to 6 doses per day (12 inhalations) Start: 04-27-2024 End: 05-15-2024 Albuterol-Budesonide (Airsup ra) 90-80 mcg/actuation HFA aerosol inhaler Discontinued 2 NMA INHALATION THREE TIMES A DAY as needed for shortness of breath 10.7 April 27, 2024 1:00am May 15, 2024 10:24am as a single dose; may repeat up to 6 doses per day (12 inhalations) amoxicillin 500 mg oral tablet (20 sources) Penicillin-class Antibacterial Start: 12-19-2022 End: 12-31-2022 take 1 tablet by mouth three times daily Amoxicillin 500 mg tablet Discontinued 500 mg PO THREE TIMES A DAY 30 0 December 18, 2022 11:00pm December 31, 2022 2:32pm Pneumonia Pneumonia, unspecified organism amoxicillin 875 mg / clavulanate 125 mg oral tablet (20 sources) Penicillin-class Antibacterial Start: 07-20-2022 End: 09-24-2022 Amoxicillin-Pot Clavulanate 875-125 mg tablet Discontinued 1 {tbl} PO TWICE A DAY 20 July 19, 2022 11:00pm September 24, 2022 1:47pm Start: 07-20-2022 End: 09-24-2022 take 1 tablet by mouth twice daily Amoxicillin-Pot Clavulanate Discontinued 1 TABLET PO TWICE A DAY July 19, 2022 11:00pm September 24, 2022 1:47pm azithromycin 250 mg oral tablet (18 sources) Macrolide Antimicrobial Start: 09-28-2024 End: 11-03-2024 take 1 mg by mouth once daily, then take 1 tablet by mouth once, then take 2-5 tablets by mouth once daily Azithromycin (Zithromax) 250 mg tablet Discontinued 0 PO daily 6 September 27, 2024 11:00pm November 03, 2024 10:18am For 250 mg dose pack: take 500 mg today (day 1), then 250 mg for 4 days (days 2-5) orally daily; benzonatate 100 mg oral capsule (20 sources) Non-narcotic Antitussive Start: 04-27-2024 End: 08-01-2024 Benzonatate 100 mg capsule Discontinued 100 mg PO 2 to 3 times per day as needed for cough 90 0 April 27, 2024 12:00am August 01, 2024 9:56am Start: 04-01-2021 End: 04-24-2021 take 1 capsule by mouth three times daily as needed for cough Benzonatate 200 mg capsule Discontinued 200 mg PO THREE TIMES A DAY as needed for cough 30 April 01, 2021 12:00am April 24, 2021 2:57pm busPIRone hydrochloride 7.5 mg oral tablet (20 sources) Start: 05-19-2024 End: 06-01-2024 take 1 tablet by mouth twice daily Buspirone 7.5 mg tablet Discontinued 7.5 mg PO TWICE A DAY May 19, 2024 12:00am June 01, 2024 6:03pm mood Start: 12-31-2022 End: 03-31-2023 take 1 tablet by mouth twice daily Buspirone 7.5 mg tablet Discontinued 7.5 mg PO TWICE A DAY December 31, 2022 2:32pm March 31, 2023 2:32pm Start: 06-24-2022 End: 12-31-2022 take 1 tablet by mouth three times daily Buspirone 7.5 mg tablet Discontinued 7.5 mg PO THREE TIMES A DAY 270 90 3 June 24, 2022 3:01pm December 31, 2022 2:33pm Start: 09-30-2021 End: 06-24-2022 take 1 tablet by mouth twice daily Buspirone 7.5 mg tablet Discontinued 7.5 mg PO TWICE A DAY 180 0 December 10, 2021 2:14pm December 29, 2021 2:55pm cephalexin 500 mg oral capsule (5 sources) Cephalosporin Antibacterial Start: 01-15-2025 End: 02-07-2025 take 1 capsule by mouth three times daily Cephalexin 500 mg capsule Discontinued 500 mg PO THREE TIMES A DAY 30 January 14, 2025 11:00pm February 07, 2025 8:14am Start: 01-15-2025 take 1 capsule by mo [facility] three times daily Cephalexin 500 mg capsule Active 500 mg PO THREE TIMES A DAY 30 January 15, 2025 12:00am Complies with drug therapy Start: 01-15-2025 take 1 capsule by mo [facility] three times daily Cephalexin 500 mg capsule Active 500 mg PO THREE TIMES A DAY 30 January 15, 2025 12:00am Complies with drug therapy ciprofloxacin 3 mg/ml / dexamethasone 1 mg/ml otic suspension (20 sources) Corticosteroid, Quinolone Antimicrobial Start: 07-05-2020 End: 07-12-2020 Ciprofloxacin-Dexamethasone (Ciprodex) 0.3-0.1 % drops,suspension Discontinued 4 NMA OTIC TWICE A DAY 7.5 7 0 July 04, 2020 11:00pm July 10, 2020 11:00pm July 11, 2020 11:03pm Start: 07-05-2020 End: 07-12-2020 Ciprofloxacin-Dexamethasone (Ciprodex) 0.3-0.1 % drops,suspension Discontinued 4 DRP OTIC TWICE A DAY 7.5 7 July 04, 2020 11:00pm July 11, 2020 11:03pm escitalopram 5 mg oral tablet (20 sources) Serotonin Reuptake Inhibitor Start: 11-26-2021 End: 12-10-2021 take 1 tablet by mouth once daily Escitalopram Oxalate (Lexapro) 5 mg tablet Discontinued 5 mg PO DAILY 30 November 25, 2021 11:00pm December 10, 2021 3:47pm Fluticasone-Umeclidi n-Vilanter (20 sources) Anticholinergic, Corticosteroid, beta2-Adrenergic Agonist Start: 06-21-2024 End: 08-01-2024 Fluticasone-Umeclid in-Vilanter (Trelegy Ellipta) 100-62.5-25 mcg blister with device Discontinued 1 NMA INHALATION daily 60 3 June 21, 2024 12:00am August 01, 2024 11:14am Start: 06-21-2024 End: 08-01-2024 Ywmoyfokwuc-Ymfrbjcaj-Rikzvb er (Trelegy Ellipta) 100-62.5-25 mcg blister with device Discontinued 1 NMA INHALATION daily 60 3 June 21, 2024 1:00am August 01, 2024 12:14pm Start: 06-21-2024 End: 08-01-2024 Beufgrxjbuq-Oecekdxli-Dttxfu er (Trelegy Ellipta) 100-62.5-25 mcg blister with device Discontinued 1 NMA INHALATION daily 60 June 21, 2024 1:00am August 01, 2024 12:14pm Start: 06-21-2024 Fluticasone-Um eclidin-Vilanter (Trelegy Ellipta) 100-62.5-25 mcg blister with device Active 1 NMA INHALATION daily 60 June 21, 2024 1:00am 30 actuat fluticasone furoate 0.1 mg/actuat / vilanterol 0.025 mg/actuat dry powder inhaler (20 sources) Corticosteroid, beta2-Adrenergic Agonist Start: 05-15-2024 End: 06-21-2024 Fluticasone Furoate-Vilanterol (Breo Ellipta) 100-25 mcg/dose blister with device Discontinued 1 NMA INHALATION Q24H 60 0 May 15, 2024 12:00am June 21, 2024 3:57pm breathing guaiFENesin 400 mg oral tablet (20 sources) Start: 04-01-2021 End: 04-24-2021 take 1 tablet by mouth every four hours as needed for congestion Guaifenesin 400 mg tablet Discontinued 400 mg PO Q4H as needed for congestion 30 April 01, 2021 12:00am April 24, 2021 2:57pm hydroCHLOROthiazide 12.5 mg oral capsule (20 sources) Thiazide Diuretic Start: 05-08-2014 End: 05-23-2020 take 1 capsule by mouth once daily Hydrochlorothiazide 12.5 MG capsule Discontinued 12.5 mg PO DAILY May 08, 2014 12:00am May 23, 2020 2:49pm hydroxychloroquine sulfate 200 mg oral tablet (20 sources) Antimalarial, Antirheumatic Agent Start: 05-23-2020 End: 06-03-2022 take 1 tablet by mouth twice daily Hydroxychloroquine (Plaquenil) 200 mg tablet Discontinued 200 mg PO TWICE A DAY 60 March 24, 2022 10:24am June 03, 2022 9:00am ibuprofen 200 mg oral tablet (20 sources) Nonsteroidal Anti-inflammatory Drug Start: 05-08-2014 End: 05-23-2020 take 1 tablet by mouth every four hours as needed for pain Ibuprofen 200 MG tablet Discontinued 200 mg PO EVERY 4 HOURS NEEDED as needed for Pain May 08, 2014 12:00am May 23, 2020 2:29pm ketorolac tromethamine 10 mg oral tablet (20 sources) Nonsteroidal Anti-inflammatory Drug, Cyclooxygenase Inhibitor Start: 05-23-2020 End: 01-06-2021 take 1 tablet by mouth twice daily as needed for pain Ketorolac 10 mg tablet Discontinued 10 mg PO TWICE A DAY as needed for Pain 180 1 January 02, 2021 2:37pm January 06, 2021 7:48am Start: 05-23-2020 End: 02-04-2021 take 1 tablet by mouth three times daily as needed Ketorolac 10 mg tablet Discontinued 10 mg PO THREE TIMES A DAY as needed May 23, 2020 12:00am May 23, 2020 2:31pm Start: 05-08-2014 End: 05-23-2020 Ketorolac 10 MG tablet Disco ntinued 20 mg PO NEEDED as needed for Headache May 08, 2014 12:00am May 23, 2020 2:31pm Start: 05-08-2014 End: 05-23-2020 Ketorolac Discontinued 20 MG PO NEEDED May 08, 2014 12:00am May 23, 2020 2:31pm LORazepam 1 mg oral tablet (20 sources) Benzodiazepine Start: 06-24-2022 End: 12-19-2022 take 1 tablet by mouth once daily as needed for anxiety Lorazepam 1 mg tablet Discontinued 1 mg PO DAILY as needed for anxiety 7 0 June 24, 2022 12:00am December 19, 2022 8:57am Generalized anxiety disorder Generalized anxiety disorder meloxicam 15 mg oral tablet (20 sources) Nonsteroidal Anti-inflammatory Drug Start: 01-06-2021 End: 12-19-2022 take 1 tablet by mouth once daily as needed for pain Meloxicam 15 mg tablet Discontinued 15 mg PO DAILY as needed for pain 60 1 January 05, 2021 11:00pm December 19, 2022 8:58am Start: 12-15-2019 End: 05-23-2020 take 1 tablet by mouth once daily Meloxicam (Mobic) 15 mg tablet Discontinued 15 mg PO DAILY 21 0 December 14, 2019 11:00pm May 23, 2020 2:31pm Do NOT take in conjunction with other NSAIDs including ketorolac. Tylenol is okay 24 hr methylphenidate hydrochloride 5 mg/ml extended release suspension (20 sources) Central Nervous System Stimulant Start: 05-23-2020 End: 05-23-2020 take 10 mg by mouth once daily, then take 5 mg by mouth every twenty-four hours Methylphenidate Hcl (Quillivant Xr) 5 mg/mL (25 mg/5 mL) suspension,ext rel 24hr,recon Discontinued 10 mg PO DAILY 0 May 23, 2020 12:00am May 23, 2020 2:30pm methylPREDNISolone 4 mg oral tablet (20 sources) Corticosteroid Start: 12-15-2019 End: 05-23-2020 take 1 tablet by mouth once Methylprednisolone (Medrol (Wilfredo)) 4 mg tablets,dose pack Discontinued 0 PO per package directions 21 December 14, 2019 11:00pm May 23, 2020 2:30pm Take as directed nitrofurantoin, macrocrystals 25 mg / nitrofurantoin, monohydrate 75 mg oral capsule (20 sources) Nitrofuran Antibacterial Start: 05-28-2024 End: 06-04-2024 take 1 capsule by mouth every twelve hours at mealtime Nitrofurantoin Monohyd/M-Cryst (Macrobid) 100 mg capsule Discontinued 100 mg PO Q12H 14 7 0 May 28, 2024 12:00am June 03, 2024 12:00am June 04, 2024 12:11am must administer with a meal/food nystatin 100 unt/mg topical ointment (20 sources) Polyene Antifungal Start: 11-18-2023 End: 12-23-2023 Nystatin 100,000 unit/gram ointment Discontinued 1 NMA TOPICAL TWICE A DAY 30 November 17, 2023 11:00pm December 23, 2023 1:51pm phenazopyridine hydrochloride 100 mg oral tablet (20 sources) Start: 05-28-2024 End: 06-15-2024 take 1 tablet by mouth three times daily as needed for pain Phenazopyridine (Pyridium) 100 mg tablet Discontinued 100 mg PO THREE TIMES A DAY as needed for pain 7 0 May 28, 2024 12:00am June 15, 2024 12:28pm potassium chloride 10 meq extended release oral tablet (20 sources) Start: 05-08-2014 End: 07-05-2020 take 1 tablet by mouth once daily Potassium Chloride 10 MEQ tablet extended release Discontinued 10 meq PO DAILY May 08, 2014 12:00am July 05, 2020 9:05am predniSONE 20 mg oral tablet (20 sources) Start: 09-28-2024 End: 11-03-2024 take 2 tablets by mouth once daily Prednisone 20 mg tablet Discontinued 40 mg PO daily 10 0 September 28, 2024 9:21am November 03, 2024 10:19am Chronic obstructive pulmonary disease with acute exacerbation Chronic obstructive pulmonary disease with (acute) exacerbation Start: 05-29-2024 End: 06-15-2024 Prednisone 10 mg tablets,dos e pack Discontinued 10 mg PO As Directed 48 0 May 10th, 2025 12:00am June 15, 2024 12:28pm see taper instructions Start: 05-24-2024 End: 05-29-2024 take 2 tablets by mouth once daily Prednisone 20 mg tablet Discontinued 40 mg PO DAILY 10 May 24, 2024 12:00am May 29, 2024 5:00pm Start: 05-19-2024 End: 05-24-2024 Prednisone 10 mg tablets,dos e pack Discontinued 0 PO per package directions 48 May 19, 2024 12:00am May 24, 2024 2:52pm PO PER PKG DIR Start: 04-27-2024 End: 05-19-2024 take 2 tablets by mouth once daily Prednisone 20 mg tablet Discontinued 40 mg PO daily 10 April 27, 2024 12:00am May 19, 2024 9:23am Start: 12-19-2022 End: 12-31-2022 take 3 tablets by mouth once daily Prednisone 20 mg tablet Discontinued 60 mg PO DAILY 15 December 18, 2022 11:00pm December 31, 2022 2:32pm Cough Cough, unspecified Start: 12-19-2022 End: 12-31-2022 take 60 mg by mouth once daily Prednisone Discontinued 60 MG PO DAILY December 18, 2022 11:00pm December 31, 2022 2:32pm Start: 05-23-2020 End: 12-19-2022 take 1 tablet by mouth once daily as needed for arthritis Prednisone 10 mg tablet Discontinued 10 mg PO DAILY as needed for flares up rheumatoid arthritis May 23, 2020 12:00am December 19, 2022 8:58am promethazine hydrochloride 12.5 mg oral tablet (20 sources) Phenothiazine Start: 04-01-2021 End: 04-24-2021 take 1 tablet by mouth every six hours as needed for nausea and vomiting Promethazine 12.5 mg tablet Discontinued 12.5 mg PO EVERY 6 HOURS as needed for nausea and vomiting April 01, 2021 12:00am April 24, 2021 2:58pm sertraline 50 mg oral tablet (20 sources) Serotonin Reuptake Inhibitor Start: 12-10-2021 End: 12-05-2024 take 1 tablet by mouth once daily Sertraline 50 mg tablet Discontinued 50 mg PO DAILY June 12, 2024 12:48pm December 05, 2024 8:01am mental health SUMAtriptan 25 mg oral tablet (20 sources) Serotonin-1b and Serotonin-1d Receptor Agonist Start: 03-23-2022 End: 09-24-2022 take 1 tablet by mouth every two hours Sumatriptan Succinate (Imitrex) 25 mg tablet Discontinued 0 PO .COMPLEX 10 March 24, 2022 10:24am September 24, 2022 2:01pm take 1 tab at onset of headache; if no relief may repeat 1 tab after at least 2 hrs; max = 4 tabs/24 hr PO ubrogepant 50 mg oral tablet (20 sources) Start: 09-24-2022 End: 09-28-2022 take 1 tablet by mouth once Ubrogepant (Ubrelvy) 50 mg tablet Discontinued 50 mg PO ONCE 14 September 23, 2022 11:00pm September 28, 2022 10:46am as a single dose; may repeat once in >=2 hours after first dose if needed z quil (20 sources) Start: 05-23-2020 End: 04-24-2021 z quil Discontinued PO May 23, 2020 3:28pm April 24, 2021 3:58pm Start: 05-23-2020 End: 04-24-2021 z quil Discontinued PO 0 May 12:00am April 24, 2021 2:58pm Start: 05-23-2020 End: 04-24-2021 z quil Discontinued PO 0 [place] 2020 1:00am April 24, 2021 3:58pm Start: 05-23-2020 End: 04-24-2021 z quil Discontinued PO [place] 2020 12:00am April 24, 2021 2:58pm Start: 05-23-2020 End: 04-24-2021 z quil Discontinued PO Feb[place] 2020 1:00am April 24, 2021 3:58pm Problems Active Problems Problem Classification Problem Date Documented Date Episodic/Chronic Abdominal pain (20 sources) Left upper quadrant pain; Translations: [Left upper quadrant pain] 12-23-2023 Episodic Acute bronchitis (20 sources) Acute bronchitis; Translations: [Acute bronchitis, unspecified] 12-21-2022 Episodic Administrative/social admission (1 source) Dietary counseling and surveillance; Translations: [Dietary counseling and surveillance] Onset: 02-27-2025 Episodic Anxiety disorders (20 sources) Anxiety disorder, unspecified; Translations: [Anxiety state, unspecified] Chronic Asthma (20 sources) Asthma-chronic obstructive pulmonary disease overlap syndrome; Translations: [Asthma-chronic obstructive pulmonary disease overlap syndrome] 08-01-2024 Chronic Cardiac dysrhythmias (20 sources) Premature atrial contraction; Translations: [Atrial premature depolarization] 09-24-2023 Chronic Chronic kidney disease (20 sources) Chronic kidney disease stage 3; Translations: [Stage 3 chronic kidney disease] 05-23-2020 Chronic Chronic obstructive pulmonary disease and bronchiectasis (20 sources) Chronic obstructive lung disease; Translations: [Chronic obstructive pulmonary disease, unspecified] Onset: 09-22-2024 08-01-2024 Chronic Comment on above: acute exacerbation o f chronic diagnosis Essential hypertension (20 sources) Hypertensive disorder; Translations: [Essential (primary) hypertension] Onset: 05-16-2024 Chronic Headache; including migraine (20 sources) Migraine; Translations: [Migraine, unspecified, not intractable, without status migrainosus] Chronic Headache; including migraine (20 sources) Frequent headache; Translations: [Frequent headaches] 05-23-2020 Episodic Malaise and fatigue (20 sources) Fatigue; Translations: [Other fatigue] 06-01-2024 Episodic Mycoses (20 sources) Dermal mycosis; 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, unspecified] 11-18-2023 Episodic Osteoarthritis (20 sources) Osteoarthritis; Translations: [Unspecified osteoarthritis, unspecified site] Onset: 11-09-2024 12-27-2024 Chronic Other and unspecified benign neoplasm (20 sources) Polyp of colon; Translations: [Polyp of colon] 08-27-2020 Episodic Comment on above: 2020 Q5yr Other ear and sense organ disorders (20 sources) Otalgia, left ear; Translations: [Left ear pain] 07-20-2022 Episodic Other hematologic conditions (7 sources) Microcytosis; Translations: [Other abnormality of red blood cells] 12-28-2024 Episodic Other hematologic conditions (1 source) Other abnormality of red blood cells; Translations: [Other abnormality of red blood cells] Onset: 01-05-2025 Episodic Other lower respiratory disease (20 sources) Cough; Translations: [Cough] 12-19-2022 Episodic Other lower respiratory disease (20 sources) Dyspnea; Translations: [Dyspnea, unspecified] 05-27-2024 Episodic Other lower respiratory disease (20 sources) Hypoxia; Translations: [Hypoxemia] 05-27-2024 Episodic Other lower respiratory disease (20 sources) Solitary nodule of lung; Translations: [Solitary pulmonary nodule] 08-01-2024 Episodic Other non-traumatic joint disorders (17 sources) Hip pain; Translations: [Pain in right hip] 01-01-2025 Episodic Other non-traumatic joint disorders (2 sources) Pain in right hip; Translations: [Pain in right hip] Onset: 01-01-2025 Episodic Other non-traumatic joint disorders (1 source) Pain in right knee; Translations: [Pain in right knee] Onset: 01-01-2025 Episodic Other nutritional; endocrine; and metabolic disorders (20 sources) Morbid obesity; Translations: [Morbid (severe) obesity due to excess calories] 04-24-2021 Chronic Other nutritional; endocrine; and metabolic disorders (2 sources) Morbid (severe) obesity due to excess calories; Translations: [Morbid obesity] Chronic Other screening for suspected conditions (not mental disorders or infectious disease) (20 sources) Patient encounter status; Translations: [Encounter for screening for malignant neoplasm of colon] Onset: 09-29-2024 08-02-2017 Episodic Other upper respiratory disease (20 sources) Seasonal allergy; Translations: [Other seasonal allergic rhinitis] 05-23-2020 Chronic Otitis media and related conditions (20 sources) Otitis; Translations: [Otitis media, unspecified, unspecified ear] 07-20-2022 Episodic Pneumonia (except that caused by tuberculosis or sexually transmitted disease) (20 sources) Pneumonia; Translations: [Pneumonia, unspecified organism] 12-21-2022 Episodic Rehabilitation care; fitting of prostheses; and adjustment of devices (1 source) Encounter for fitting and adjustment of other specified devices; Translations: [Encounter for fitting and adjustment of other specified devices] Onset: 11-10-2024 Chronic Residual codes; unclassified (20 sources) Obstructive sleep apnea syndrome; Translations: [Obstructive sleep apnea (adult) (pediatric)] 08-23-2024 Chronic Comment on above: PSG shows AHI 70.2 i n September 2024 Residual codes; unclassified (1 source) Obstructive sleep apnea (adult) (pediatric); Translations: [Obstructive sleep apnea (adult) (pediatric)] Onset: 11-20-2024 Chronic Residual codes; unclassified (20 sources) History of clinical finding in subject; Translations: [Personal history of other specified conditions] 05-23-2020 Episodic Rheumatoid arthritis and related disease (20 sources) Rheumatoid arthritis; Translations: [Rheumatoid arthritis, unspecified] Onset: 01-04-2025 Chronic Screening and history of mental health and substance abuse codes (20 sources) Tobacco smoking behavior - finding; Translations: [Personal history of nicotine dependence] Episodic Skin and subcutaneous tissue infections (11 sources) Cellulitis of right upper limb; Translations: [Cellulitis of right upper arm] Onset: 01-16-2025 01-15-2025 Episodic Superficial injury; contusion (11 sources) Contusion of right upper arm, initial encounter; Translations: [Hematoma of right upper extremity] Onset: 01-16-2025 01-15-2025 Episodic Thyroid disorders (20 sources) Thyroid nodule; Translations: [Nontoxic single thyroid nodule] 10-03-2020 Chronic Unclassified (5 sources) J40 - Bronchitis, not specified as acute or chronic,R05.3 - Chronic cough Unclassified (20 sources) Z00.00 - Encounter for general adult medical examination without abnormal findings Unclassified (12 sources) Encounter for health maintenance examination Unclassified (1 source) Pain of right hip Unclassified (1 source) Osteoarthritis of right knee Unclassified (6 sources) M25.551 - Pain in right hip,M17.11 - Unilateral primary osteoarthritis, right knee Urinary tract infections (3 sources) Urinary tract infectious disease; Translations: [Urinary tract infection, site not specified] 05-28-2024 Episodic Past or Other Problems Problem Classification Problem Date Documented Da te Episodic/Chronic Chronic obstructive pulmonary disease and bronchiectasis (20 sources) Bronchitis; Translations: [Bronchitis, not specified as acute or chronic] Onset: 05-25-2024 Episodic Genitourinary symptoms and ill-defined conditions (2 sources) Unspecified abnormal findings in urine; Translations: [Frequency of micturition] Onset: 05-28-2024 Episodic Influenza (20 sources) Influenza due to Influenza A virus; Translations: [Influenza due to other identified influenza virus with other respiratory manifestations] Onset: 05-25-2024 05-27-2024 Episodic Other lower respiratory disease (20 sources) Chronic cough; Translations: [Chronic cough] Onset: 05-25-2024 Episodic Other lower respiratory disease (1 source) Solitary pulmonary nodule; Translations: [Solitary pulmonary nodule] Onset: 11-06-2024 Episodic Other lower respiratory disease (2 sources) Dyspnea, unspecified; Translations: [Dyspnea, unspecified] Onset: 05-25-2024 Episodic Other lower respiratory disease (2 sources) Hypoxemia; Translations: [Hypoxemia] Onset: 05-25-2024 Episodic Unclassified (20 sources) history of right elbow fracture 11-05-2021 Results Test Name Value Interpretation Reference Range Facility PAP IG HPV APTIMA 16/18,45on 02-11-2025 ADEQ Comment Normal . [facility] Comment on above: Order Comment: Evangelista apodaca Comment: [id number] Comment: No. of containers..01 ThinPrep Vial Result Comment: Sati sfactory for evaluation. No endocervical component is identified. Performed By: #### L 7400.0280 ####[facility] [address] [place], [place], [id number] COMM . Normal . [facility] Comment on above: Order Comment: Evangelista apodaca Comment: [id number] Comment: No. of containers..01 ThinPrep Vial Performed By: #### L 7400.0280 ####[facility] [address] [place], [place], [id number] COMMENT Comment Normal . [facility] Comment on above: [facility]: [facility]: [id number] Comment: No. of containers..01 ThinPrep Vial Result Comment: This liquid based ThinPrep(R) pap test was interpretedusing the TellmeGen(R) Genius(TM) Cervical Algorithm wholeslide imaging system. Performed By: #### L 7400.0280 ####[facility] [address] [place], [address] DIAG Comment Normal . [facility] Comment on above: Order Comment: Speci men Comment: [id number] Comment: No. of containers..01 ThinPrep Vial Result Comment: NEGA TIVE FOR INTRAEPITHELIAL LESION OR MALIGNANCY. Performed By: #### L 7400.0280 ####[facility] [address] [place], [address] HPV APTIMA, HR Negative Normal Negative [facility] Comment on above: Order Comment: Speci men Comment: [id number] Comment: No. of containers..01 ThinPrep Vial Result Comment: This nucleic acid amplification test detects fourteen high-risk HPV types (16,18,31,33,35,39,45,51,52,56,58,59,66,68)without differentiation. Performed By: #### L 7400.0280 ####[facility] [address] [place], [address] HPV Adamaris Rfx Comment Normal . [facility] Comment on above: Order Comment: Speci men Comment: [id number] Comment: No. of containers..01 ThinPrep Vial Result Comment: Crit eria not met, HPV Genotype not performed.Performed at: - [facility] [id number] Director: Noa Yang MD, Phone: [phone] at: = - [facility] [address] [id number] Director: Noa Yang MD, Phone: [phone] Performed By: #### L 7400.0280 ####[facility] [address] [place], [place], [id number] PAPSMR Comment Normal . [facility] Comment on above: Order Comment: Speci men Comment: [id number] Comment: No. of containers..01 ThinPrep Vial Result Comment: The Pap smear is a screening test designed to aid in thedetection of premalignant and malignant conditions of theuterine cervix. It is not a diagnostic procedure andshould not be used as the sole means of detecting cervicalcancer. Both false-positive and false-negative reports dooccur. Performed By: #### L 7400.0280 ####[facility] [address] [place], [place], [id number] PERFORM Comment Normal . [facility] Comment on above: Order Comment: Speci men Comment: [id number] Comment: No. of containers..01 ThinPrep Vial Result Comment: Dee Dee Ashby, Napkin Machine Operator (ASCP) Performed By: #### L 7400.0280 ####[facility] [address] [place], [place], [id number] Cervical or vaginal specimen microscopic examination by liquid based cytology (reportOrdered By: Clara Lopez on 02-07-2025 Cytology report Cyto stain.thin prep Doc (Cvx/Vag) Comment . [facility] Comment on above: Criteria not met, HP V Genotype not performed.Performed at: [address] [id number] Director: Noa Yang MD, Phone: [phone] at: =[address] [id number] Director: Noa Yang MD, Phone: [phone] Cervical or vagninal specime n microscopic examination by cytology stain (reported asOrdered By: Clara Lopez on 02-07-2025 Cytology report Cyto stain Doc (Cvx/Vag) Comment . [facility] Comment on above: The Pap smear is a s creening test designed to aid in thedetection of premalignant and malignant conditions of theuterine cervix. It is not a diagnostic procedure andshould not be used as the sole means of detecting cervicalcancer. Both false-positive and false-negative reports dooccur. Detection in cervical specim en of any of human papilloma virus (HPV) 16, 18, 31, 33,Ordered By: Clara Lopez on 02-07-2025 HPV 16+18+31+33+35+39+45+51 +52+56+58+59+66+68 DNA Probe+sig amp Ql (Cvx) Negative Negative [facility] Comment on above: This nucleic acid am plification test detects fourteen high-risk HPV types (16,18,31,33,35,39,45,51,52,56,58,59,66,68)without differentiation. Laboratory - CytologyOrdered By: Clara Lopez on 02-07-2025 Napkin Machine Operator Cyto stain Nom (Cvx/Vag) [ID] Comment . [facility] Comment on above: Ana Ashby, Napkin Machine Operator (ASCP) Laboratory - Miscellaneous t estsOrdered By: Clara Lopez on 02-07-2025 Service comment (Unsp spec) [Interp] . . [facility] No Panel InformationOrdered By: Clara Lopez on 02-07-2025 Pap Smear Specimen Adequacy Comment . [facility] Comment on above: Satisfactory for to luation. No endocervical component is identified. [facility] Office Visit Reporton 02-07-2025 Animal Feeder Office Visit Report Normal [facility] Inital Evaluation (1) - PTon 01-24-2025 Inital Evaluation (1) - PT Normal [facility] Pulmonary Visit Reporton Pulmonary Visit Report Normal [facility] Urgent Care Visit Reporton 0 01-15-2025 Urgent Care Visit Report Normal [facility] Knee 4 or More Viewson 01-01 Knee 4 or More Views Normal [facility] Orthopedic Visit Reporton Orthopedic Visit Report Normal [facility] Ferritinon 12-29-2024 Ferritin [Mass/Vol] 70 ng/mL Normal 22-378 [facility] Comment on above: Performed By: #### L 503.6030, L503.6550 ####[facility] [address] [place], [address] Iron measurement (mass/mass) Ordered By: Nicky Covarrubias on 12-29-2024 Iron (Unsp spec) [Mass/Mass] 45 ug/dL Low 50-170 [facility] Iron+Iron Binding Capacityon 12-29-2024 Iron [Mass/Vol] 45 ug/dL Low 50-170 [facility] Comment on above: Performed By: #### L 503.6030, L503.6550 ####[facility] [address] [place], [address] IRON SATURATION 15.1 Normal -59 [facility] Comment on above: Performed By: #### L 503.6030, L503.6550 ####[facility] [address] [place], [address] TIBC 295 ug/dL Normal 250-450 [facility] Comment on above: Performed By: #### L 503.6030, L503.6550 ####[facility] [address] [place], [address] UIBC 250 ug/dL Normal 228-428 [facility] Comment on above: Performed By: #### L 503.6030, L503.6550 ####[facility] [address] [place], [address] No Panel InformationOrdered By: Nicky Covarrubias on 12-29-2024 Unsaturated Iron Binding Capacity 250 ug/dL 228-428 [facility] Serum or plasma ferritin amanda surement (mass/volume)Ordered By: Nicky Covarrubias on 12-29-2024 Ferritin [Mass/Vol] 70 ng/mL 22-378 [facility] Serum or plasma iron saturat ion measurement (mass fraction)Ordered By: Nicky Covarrubias on 12-29-2024 Iron saturation [Mass fraction] 15.1 % [facility] Absolute lymphocyte countOrd ered By: Nicky Covarrubias on 12-28-2024 Lymphocytes Auto (Unsp spec) [#/Vol] 1.77 10*3/uL 0.83-4.51 [facility] Absolute neutrophil countOrd ered By: Nicky Covarrubias on 12-28-2024 Neutrophils (Bld) [#/Vol] 3.6 10*3/uL 2.0-7.7 [facility] Automated lymphocyte count a s percentage of total leukocytesOrdered By: Nicky Covarrubias on 12-28-2024 Lymphocytes/100 WBC Auto (Unsp spec) 28.4 % 19-41 [facility] Basophil percentageOrdered B y: Nicky Covarrubias on 12-28-2024 Basophils/100 WBC (Bld) 0.6 % 0-1 [facility] CBC W/Diff, Automatedon 12-18-2024 Absolute Lymph 1.77 X10 3/uL Normal 0.83-4.51 [facility] Comment on above: Performed By: #### L 100.0100 ####[facility] [address] [place], [address] Absolute Neut 3.6 X10 3/uL Normal 2.0-7.7 [facility] Comment on above: Performed By: #### L 100.0100 ####[facility] [address] [place], [address] Basophils/100 WBC (Bld) 0.6 % Normal 0-1 [facility] Comment on above: Performed By: #### L 100.0100 ####[facility] [address] [place], [address] Eosinophils/100 WBC (Bld) 1.1 % Normal 0-5 [facility] Comment on above: Performed By: #### L 100.0100 ####[facility] [address] [place], [address] Erythrocyte distribution width (RBC) [Ratio] 17.9 % High 11.6-14.6 [facility] Comment on above: Performed By: #### L 100.0100 ####[facility] [address] [place], [address] Hematocrit (Bld) [Volume fraction] 40.7 % Normal 37-47 [facility] Comment on above: Performed By: #### L 100.0100 ####[facility] [address] [place], [address] Hemoglobin (Bld) [Mass/Vol] 12.3 g/dL Normal 12.0-15.0 [facility] Comment on above: Performed By: #### L 100.0100 ####[facility] [address] [place], [address] IG% 0.500 Normal 0.0-0.9 [facility] Comment on above: Result Comment: IG% - Immature Granulocytes (promyelocytes, myelocytes andmetamyelocytes) > 1% indicates that a LEFT SHIFT is Present. Performed By: #### L 100.0100 ####[facility] [address] [place], [address] Lymphocytes/100 WBC (Bld) 28.4 % Normal 19-41 [facility] Comment on above: Performed By: #### L 100.0100 ####[facility] [address] [place], [address] MCH (RBC) [Entitic mass] 26.6 pg Low 27.0-32.0 [facility] Comment on above: Performed By: #### L 100.0100 ####[facility] [address] [place], [address] MCHC (RBC) [Mass/Vol] 30.2 g/dL Low 32-36 [facility] Comment on above: Performed By: #### L 100.0100 ####[facility] [address] [place], [address] MCV (RBC) [Entitic vol] 88.1 fL Normal 81-99 [facility] Comment on above: Performed By: #### L 100.0100 ####[facility] [address] [place], [address] Monocytes/100 WBC (Bld) 11.2 % High 0-10 [facility] Comment on above: Performed By: #### L 100.0100 ####[facility] [address] [place], [address] Neutrophils/100 WBC (Bld) 58.2 % Normal 47-70 [facility] Comment on above: Performed By: #### L 100.0100 ####[facility] [address] [place], [address] Nucleated RBC (Bld) [#/Vol] 0 10*3/uL Normal 0-5 [facility] Comment on above: Performed By: #### L 100.0100 ####[facility] [address] [place], [address] Platelet mean volume (Bld) [Entitic vol] 9.3 fL Normal 6.2-12.0 [facility] Comment on above: Performed By: #### L 100.0100 ####[facility] [address] [place], [address] Platelets (Bld) [#/Vol] 338 10*3/uL Normal 150-450 [facility] Comment on above: Performed By: #### L 100.0100 ####[facility] [address] [place], [address] RBC (Bld) [#/Vol] 4.62 10*6/uL Normal 4.2-5.4 [facility] Comment on above: Performed By: #### L 100.0100 ####[facility] [address] [place], [address] RDW SD 56.5 fl High 35.1-43.9 [facility] Comment on above: Performed By: #### L 100.0100 ####[facility] [address] [place], [address] WBC (Bld) [#/Vol] 6.2 10*3/uL Normal 4.4-11.0 [facility] Comment on above: Performed By: #### L 100.0100 ####[facility] [address] [place], [address] Eosinophil percentageOrdered By: [facility] Covarrubias on 12-28-2024 Eosinophils/100 WBC (Bld) 1.1 % 0-5 [facility] Erythrocyte distribution wid th ratioOrdered By: [facility]o Segaljuan alberto on 12-28-2024 Erythrocyte distribution width (RBC) [Ratio] 17.9 % High 11.6-14.6 [facility] Erythrocyte distribution wid th standard deviationOrdered By: [facility] Hospitalitalo Segaljuan alberto on 12-28-2024 Erythrocyte distribution width (RBC) [Ratio] 56.5 fl High 35.1-43.9 [facility] Hematocrit Auto (Bld) [Volum e fraction]Ordered By: [facility] Philippjuan alberto on 12-28-2024 Hematocrit (Bld) [Volume fraction] 40.7 % 37-47 [facility] Hemoglobin measurementOrdere d By: [facility] Philippjuan alberto on 12-28-2024 Hemoglobin (Bld) [Mass/Vol] 12.3 g/dL 12.0-15.0 [facility] Immature granulocytes/100 WB C Auto (Bld)Ordered By: [facility] Segaljuan alberto on 12-28-2024 Immature granulocytes/100 WBC (Bld) 0.500 % 0.0-0.9 [facility] Comment on above: IG% - Immature Granu locytes (promyelocytes, myelocytes and metamyelocytes) > 1% indicates that a LEFT SHIFT is Present. MCV (mean corpuscular volume ) determinationOrdered By: Oluturtonitalo Covarrubias on 12-28-2024 MCV (RBC) [Entitic vol] 88.1 fL 81-99 [facility] Mean corpuscular hemoglobin (MCH) determinationOrdered By: [facility] Segaljuan alberto on 12-28-2024 MCH (RBC) [Entitic mass] 26.6 pg Low 27.0-32.0 [facility] Mean corpuscular hemoglobin concentration (MCHC) determinationOrdered By: [facility] Segalarvindjuan alberto on 12-28-2024 MCHC (RBC) [Mass/Vol] 30.2 g/dL Low 32-36 [facility] Mean platelet volume determi nationOrdered By: Nicky Péreze on 12-28-2024 Platelet mean volume (Bld) [Entitic vol] 9.3 fL 6.2-12.0 [facility] Monocyte percentageOrdered B y: Lorenajenniitalo Segalarvinde on 12-28-2024 Monocytes/100 WBC (Bld) 11.2 % High 0-10 [facility] Neutrophil percentageOrdered By: Oluturtonitalo Segalarvinde on 12-28-2024 Neutrophils/100 WBC (Bld) 58.2 % 47-70 [facility] Nucleated red blood cell per centageOrdered By: Oluradhaitalo Segalarvindjuan alberto on 12-28-2024 Nucleated RBC/100 WBC (Bld) [Ratio] 0 % 0-5 [facility] Platelet countOrdered By: Lorena piter Philipparvindjuan alberto on 12-28-2024 Platelets (Bld) [#/Vol] 338 10*3/uL 150-450 [facility] RBC Auto (Bld) [#/Vol]Ordere d By: Nicky Philippyesica on 12-28-2024 RBC (Bld) [#/Vol] 4.62 10*6/uL 4.2-5.4 [facility] White blood cell (WBC) count Ordered By: Oluradhaitalo Segalarvindjuan alberto on 12-28-2024 WBC (Bld) [#/Vol] 6.2 10*3/uL 4.4-11.0 [facility] Internal Medicine Office Vis iton 12-27-2024 Internal Medicine Office Visit Normal [facility] Absolute lymphocyte counton 11-03-2024 Lymphocytes Auto (Unsp spec) [#/Vol] 2.24 10*3/uL 0.83-4.51 [facility] Absolute neutrophil counton 11-03-2024 Neutrophils (Bld) [#/Vol] 4.7 10*3/uL 2.0-7.7 [facility] Automated lymphocyte count a s percentage of total leukocyteson 11-03-2024 Lymphocytes/100 WBC Auto (Unsp spec) 28.6 % 19-41 [facility] Basophil percentageon 11-03- 2024 Basophils/100 WBC (Bld) 0.6 % 0-1 [facility] CBC W/Diff, Automatedon 10-17 Absolute Lymph 2.24 X10 3/uL Normal 0.83-4.51 [facility] Comment on above: Performed By: #### L 101.9900, L501.6710, L100.0100 ####[facility] [address] [place], [address] Absolute Neut 4.7 X10 3/uL Normal 2.0-7.7 [facility] Comment on above: Performed By: #### L 101.9900, L501.6710, L100.0100 ####[facility] [address] [place], [address] Basophils/100 WBC (Bld) 0.6 % Normal 0-1 [facility] Comment on above: Performed By: #### L 101.9900, L501.6710, L100.0100 ####[facility] [address] [place], [address] Eosinophils/100 WBC (Bld) 2.4 % Normal 0-5 [facility] Comment on above: Performed By: #### L 101.9900, L501.6710, L100.0100 ####[facility] [address] [place], [address] Erythrocyte distribution width (RBC) [Ratio] 15.5 % High 11.6-14.6 [facility] Comment on above: Performed By: #### L 101.9900, L501.6710, L100.0100 ####[facility] [address] [place], [address] Hematocrit (Bld) [Volume fraction] 43.4 % Normal 37-47 [facility] Comment on above: Performed By: #### L 101.9900, L501.6710, L100.0100 ####[facility] [address] [place], [address] Hemoglobin (Bld) [Mass/Vol] 13.3 g/dL Normal 12.0-15.0 [facility] Comment on above: Performed By: #### L 101.9900, L501.6710, L100.0100 ####[facility] [address] [place], [address] IG% 0.500 Normal 0.0-0.9 [facility] Comment on above: Result Comment: IG% - Immature Granulocytes (promyelocytes, myelocytes andmetamyelocytes) > 1% indicates that a LEFT SHIFT is Present. Performed By: #### L 101.9900, L501.6710, L100.0100 ####[facility] [address] [place], [address] Lymphocytes/100 WBC (Bld) 28.6 % Normal 19-41 [facility] Comment on above: Performed By: #### L 101.9900, L501.6710, L100.0100 ####[facility] [address] [place], [address] MCH (RBC) [Entitic mass] 27.1 pg Normal 27.0-32.0 [facility] Comment on above: Performed By: #### L 101.9900, L501.6710, L100.0100 ####[facility] [address] [place], [address] MCHC (RBC) [Mass/Vol] 30.6 g/dL Low 32-36 [facility] Comment on above: Performed By: #### L 101.9900, L501.6710, L100.0100 ####[facility] [address] [place], [address] MCV (RBC) [Entitic vol] 88.6 fL Normal 81-99 [facility] Comment on above: Performed By: #### L 101.9900, L501.6710, L100.0100 ####[facility] [address] [place], [address] Monocytes/100 WBC (Bld) 8.1 % Normal 0-10 [facility] Comment on above: Performed By: #### L 101.9900, L501.6710, L100.0100 ####[facility] [address] [place], [address] Neutrophils/100 WBC (Bld) 59.8 % Normal 47-70 [facility] Comment on above: Performed By: #### L 101.9900, L501.6710, L100.0100 ####[facility] [address] [place], [address] Nucleated RBC (Bld) [#/Vol] 0 10*3/uL Normal 0-5 [facility] Comment on above: Performed By: #### L 101.9900, L501.6710, L100.0100 ####[facility] [address] [place], [address] Platelet mean volume (Bld) [Entitic vol] 9.7 fL Normal 6.2-12.0 [facility] Comment on above: Performed By: #### L 101.9900, L501.6710, L100.0100 ####[facility] [address] [place], [address] Platelets (Bld) [#/Vol] 324 10*3/uL Normal 150-450 [facility] Comment on above: Performed By: #### L 101.9900, L501.6710, L100.0100 ####[facility] [address] [place], [address] RBC (Bld) [#/Vol] 4.90 10*6/uL Normal 4.2-5.4 [facility] Comment on above: Performed By: #### L 101.9900, L501.6710, L100.0100 ####[facility] [address] [place], [address] RDW SD 50.5 fl High 35.1-43.9 [facility] Comment on above: Performed By: #### L 101.9900, L501.6710, L100.0100 ####[facility] [address] [place], [address] WBC (Bld) [#/Vol] 7.8 10*3/uL Normal 4.4-11.0 [facility] Comment on above: Performed By: #### L 101.9900, L501.6710, L100.0100 ####[facility] [address] [place], [address] CRPon 11-03-2024 C-REACTIVE PROT 10.40 mg/L High 0.0-3.0 [facility] Comment on above: Performed By: #### L 101.9900, L501.6710, L100.0100 ####[facility] [address] [place], [address] Eosinophil percentageon 10-17 Eosinophils/100 WBC (Bld) 2.4 % 0-5 [facility] Erythrocyte Sed Rateon 11-03 SED RATE 46 mm/hr High 0-30 [facility] Comment on above: Performed By: #### L 101.9900, L501.6710, L100.0100 ####[facility] [address] [place], [address] Erythrocyte distribution wid th ratioon 11-03-2024 Erythrocyte distribution width (RBC) [Ratio] 15.5 % High 11.6-14.6 [facility] Erythrocyte distribution wid th standard deviationon 11-03-2024 Erythrocyte distribution width (RBC) [Ratio] 50.5 fl High 35.1-43.9 [facility] Erythrocyte sedimentation ra nuria 11-03-2024 ESR (Bld) [Velocity] 46 mm/h High 0-30 [facility] Hematocrit Auto (Bld) [Volum e fraction]on 11-03-2024 Hematocrit (Bld) [Volume fraction] 43.4 % 37-47 [facility] Hemoglobin measurementon Hemoglobin (Bld) [Mass/Vol] 13.3 g/dL 12.0-15.0 [facility] Immature granulocytes/100 WB C Auto (Bld)on 11-03-2024 Immature granulocytes/100 WBC (Bld) 0.500 % 0.0-0.9 [facility] Comment on above: IG% - Immature Granu locytes (promyelocytes, myelocytes and metamyelocytes) > 1% indicates that a LEFT SHIFT is Present. MCV (mean corpuscular volume ) determinationon 11-03-2024 MCV (RBC) [Entitic vol] 88.6 fL 81-99 [facility] Mean corpuscular hemoglobin (MCH) determinationon 11-03-2024 MCH (RBC) [Entitic mass] 27.1 pg 27.0-32.0 [facility] Mean corpuscular hemoglobin concentration (MCHC) determinationon 11-03-2024 MCHC (RBC) [Mass/Vol] 30.6 g/dL Low 32-36 [facility] Mean platelet volume determi nationon 11-03-2024 Platelet mean volume (Bld) [Entitic vol] 9.7 fL 6.2-12.0 [facility] Monocyte percentageon 2024 Monocytes/100 WBC (Bld) 8.1 % 0-10 [facility] Neutrophil percentageon 10-17 Neutrophils/100 WBC (Bld) 59.8 % 47-70 [facility] Nucleated red blood cell per centageon 11-03-2024 Nucleated RBC/100 WBC (Bld) [Ratio] 0 % 0-5 [facility] Platelet counton 11-03-2024 Platelets (Bld) [#/Vol] 324 10*3/uL 150-450 [facility] Pulmonary Visit Reporton Pulmonary Visit Report Normal [facility] RBC Auto (Bld) [#/Vol]on RBC (Bld) [#/Vol] 4.90 10*6/uL 4.2-5.4 [facility] Serum or plasma C reactive p rotein measurement (mass/volume)on 11-03-2024 CRP [Mass/Vol] 10.40 mg/L High 0.0-3.0 [facility] White blood cell (WBC) count on 11-03-2024 WBC (Bld) [#/Vol] 7.8 10*3/uL 4.4-11.0 [facility] Chest without Contraston Chest without Contrast Normal [facility] Absolute lymphocyte counton 10-06-2024 Lymphocytes Auto (Unsp spec) [#/Vol] 2.33 10*3/uL 0.83-4.51 [facility] Absolute neutrophil counton 10-06-2024 Neutrophils (Bld) [#/Vol] 4.5 10*3/uL 2.0-7.7 [facility] Automated lymphocyte count a s percentage of total leukocyteson 10-06-2024 Lymphocytes/100 WBC Auto (Unsp spec) 32.5 % 19-41 [facility] Basophil percentageon 2024 Basophils/100 WBC (Bld) 0.3 % 0-1 [facility] CBC W/Diff, Automatedon - 0-2024 Absolute Lymph 2.33 X10 3/uL Normal 0.83-4.51 [facility] Comment on above: Performed By: #### L 501.6710, L100.0100, L101.9900 ####[facility] [address] [place], [address] Absolute Neut 4.5 X10 3/uL Normal 2.0-7.7 [facility] Comment on above: Performed By: #### L 501.6710, L100.0100, L101.9900 ####[facility] [address] [place], [address] Basophils/100 WBC (Bld) 0.3 % Normal 0-1 [facility] Comment on above: Performed By: #### L 501.6710, L100.0100, L101.9900 ####[facility] [address] [place], [address] Eosinophils/100 WBC (Bld) 2.1 % Normal 0-5 [facility] Comment on above: Performed By: #### L 501.6710, L100.0100, L101.9900 ####[facility] [address] [place], [address] Erythrocyte distribution width (RBC) [Ratio] 15.5 % High 11.6-14.6 [facility] Comment on above: Performed By: #### L 501.6710, L100.0100, L101.9900 ####[facility] [address] [place], [address] Hematocrit (Bld) [Volume fraction] 39.7 % Normal 37-47 [facility] Comment on above: Performed By: #### L 501.6710, L100.0100, L101.9900 ####[facility] [address] [place], [address] Hemoglobin (Bld) [Mass/Vol] 12.4 g/dL Normal 12.0-15.0 [facility] Comment on above: Performed By: #### L 501.6710, L100.0100, L101.9900 ####[facility] [address] [place], [address] IG% 0.300 Normal 0.0-0.9 [facility] Comment on above: Result Comment: IG% - Immature Granulocytes (promyelocytes, myelocytes andmetamyelocytes) > 1% indicates that a LEFT SHIFT is Present. Performed By: #### L 501.6710, L100.0100, L101.9900 ####[facility] [address] [place], [address] Lymphocytes/100 WBC (Bld) 32.5 % Normal 19-41 [facility] Comment on above: Performed By: #### L 501.6710, L100.0100, L101.9900 ####[facility] [address] [place], [address] MCH (RBC) [Entitic mass] 27.6 pg Normal 27.0-32.0 [facility] Comment on above: Performed By: #### L 501.6710, L100.0100, L101.9900 ####[facility] [address] [place], [address] MCHC (RBC) [Mass/Vol] 31.2 g/dL Low 32-36 [facility] Comment on above: Performed By: #### L 501.6710, L100.0100, L101.9900 ####[facility] [address] [place], [address] MCV (RBC) [Entitic vol] 88.4 fL Normal 81-99 [facility] Comment on above: Performed By: #### L 501.6710, L100.0100, L101.9900 ####[facility] [address] [place], [address] Monocytes/100 WBC (Bld) 1.5 % Normal 0-10 [facility] Comment on above: Performed By: #### L 501.6710, L100.0100, L101.9900 ####[facility] [address] [place], [address] Neutrophils/100 WBC (Bld) 63.3 % Normal 47-70 [facility] Comment on above: Performed By: #### L 501.6710, L100.0100, L101.9900 ####[facility] [address] [place], [address] Nucleated RBC (Bld) [#/Vol] 0 10*3/uL Normal 0-5 [facility] Comment on above: Performed By: #### L 501.6710, L100.0100, L101.9900 ####[facility] [address] [place], [address] Platelet mean volume (Bld) [Entitic vol] 9.6 fL Normal 6.2-12.0 [facility] Comment on above: Performed By: #### L 501.6710, L100.0100, L101.9900 ####[facility] [address] [place], [address] Platelets (Bld) [#/Vol] 281 10*3/uL Normal 150-450 [facility] Comment on above: Performed By: #### L 501.6710, L100.0100, L101.9900 ####[facility] [address] [place], [address] RBC (Bld) [#/Vol] 4.49 10*6/uL Normal 4.2-5.4 [facility] Comment on above: Performed By: #### L 501.6710, L100.0100, L101.9900 ####[facility] [address] [place], [address] RDW SD 50.2 fl High 35.1-43.9 [facility] Comment on above: Performed By: #### L 501.6710, L100.0100, L101.9900 ####[facility] [address] [place], [address] WBC (Bld) [#/Vol] 7.2 10*3/uL Normal 4.4-11.0 [facility] Comment on above: Performed By: #### L 501.6710, L100.0100, L101.9900 ####[facility] [address] [place], [address] CRPon 10-06-2024 C-REACTIVE PROT 26.30 mg/L High 0.0-3.0 [facility] Comment on above: Performed By: #### L 501.6710, L100.0100, L101.9900 ####[facility] [address] [place], [place], [address] Eosinophil percentageon 06- 0-2024 Eosinophils/100 WBC (Bld) 2.1 % 0-5 [facility] Erythrocyte Sed Rateon 10-06 SED RATE 41 mm/hr High 0-30 [facility] Comment on above: Performed By: #### L 501.6710, L100.0100, L101.9900 ####[facility] [address] [place], [place], [address] Erythrocyte distribution wid th ratioon 10-06-2024 Erythrocyte distribution width (RBC) [Ratio] 15.5 % High 11.6-14.6 [facility] Erythrocyte distribution wid th standard deviationon 10-06-2024 Erythrocyte distribution width (RBC) [Ratio] 50.2 fl High 35.1-43.9 [facility] Erythrocyte sedimentation ra nuria 10-06-2024 ESR (Bld) [Velocity] 41 mm/h High 0-30 [facility] Hematocrit Auto (Bld) [Volum e fraction]on 10-06-2024 Hematocrit (Bld) [Volume fraction] 39.7 % 37-47 [facility] Hemoglobin measurementon Hemoglobin (Bld) [Mass/Vol] 12.4 g/dL 12.0-15.0 [facility] Immature granulocytes/100 WB C Auto (Bld)on 10-06-2024 Immature granulocytes/100 WBC (Bld) 0.300 % 0.0-0.9 [facility] Comment on above: IG% - Immature Granu locytes (promyelocytes, myelocytes and metamyelocytes) > 1% indicates that a LEFT SHIFT is Present. MCV (mean corpuscular volume ) determinationon 10-06-2024 MCV (RBC) [Entitic vol] 88.4 fL 81-99 [facility] Mean corpuscular hemoglobin (MCH) determinationon 10-06-2024 MCH (RBC) [Entitic mass] 27.6 pg 27.0-32.0 [facility] Mean corpuscular hemoglobin concentration (MCHC) determinationon 10-06-2024 MCHC (RBC) [Mass/Vol] 31.2 g/dL Low 32-36 [facility] Mean platelet volume determi nationon 10-06-2024 Platelet mean volume (Bld) [Entitic vol] 9.6 fL 6.2-12.0 [facility] Monocyte percentageon 2024 Monocytes/100 WBC (Bld) 1.5 % 0-10 [facility] Neutrophil percentageon 09-18 0-2024 Neutrophils/100 WBC (Bld) 63.3 % 47-70 [facility] Nucleated red blood cell per centageon 10-06-2024 Nucleated RBC/100 WBC (Bld) [Ratio] 0 % 0-5 [facility] Platelet counton 10-06-2024 Platelets (Bld) [#/Vol] 281 10*3/uL 150-450 [facility] RBC Auto (Bld) [#/Vol]on RBC (Bld) [#/Vol] 4.49 10*6/uL 4.2-5.4 [facility] Serum or plasma C reactive p rotein measurement (mass/volume)on 10-06-2024 CRP [Mass/Vol] 26.30 mg/L High 0.0-3.0 [facility] White blood cell (WBC) count on 10-06-2024 WBC (Bld) [#/Vol] 7.2 10*3/uL 4.4-11.0 [facility] Chest PA and Lateralon 09-29 Chest PA and Lateral Normal [facility] Internal Medicine Office Vis iton 09-28-2024 Internal Medicine Office Visit Normal [facility] Breast imaging reportOrdered By: Jarrett Hernández on 09-25-[address] [facility] Imaging Services [address] [place] [address] SCRN MAMM (CAD)W/GLENDY BILAT MR#: [id number] Acct: [id number] Name: HONG KHAN Rep #: [id number] : 1965 F 58 From: Harmeet Hernández MD PCP: Dr. Nicky Covarrubias MD Status: R EG CLI Study:SCRN MAMM (CAD)W/GLENDY BILAT Date of Exa m: 09/25/24 Exam# [id number] Ordering Dr: Juan Alberto Covarrubias MD EXAM: SCRN MAMM (CAD)W/GLENDY BILAT DATE: 09/25/2024 CLINICAL HISTORY: F, Age 58 y/o , BREAST CANCER SCREENING Remote left excisional breast biopsy and prior bilateral needle aspirations. BREAST CANCER RISK ASSESSMENT: Not assessed. TECHNIQUE: Bilateral screening digital breast tomosynthesis with 2D and 3D images. Computeraided detection. COMPARISON: Prior exam(s) dated September 30, 2023.. FINDINGS: TISSUE DENSITY: The breast tissue is composed of scattered area of fibroglandular density. Bilateral Breast Mammographic Findings: No significant masses, calcifications or other abnormalities are identified. Stable small benign-appearing bilateral axillary lymph nodes. No suspicious masses, areas of developing architectural distortion, or suspicious calcifications. There has been no significant interval change. BI/SCRN MAMM (CAD)W/GLENDY BILAT IMPRESSION: OVERALL FINAL ASSESSMENT: BIRADS 2 BENIGN FINDING RECOMMENDATION: Routine annual follow-up in 1 Year A letter with findings and recommendations will be mailed to the patient. Reading Location: [place] [address] CC: Dr. 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 [facility] SCRN MAMM (CAD)W/GLENDY BILATo n 09-25-2024 SCRN MAMM (CAD)W/GLENDY BILAT Normal [facility] 6 Minute Walk Teston 025 6 Minute Walk Test Normal [facility] Office Visit Reporton 2024 Office Visit Report Normal [facility] Internal Medicine Office Vis iton 08-23-2024 Internal Medicine Office Visit Normal [facility] Absolute lymphocyte countOrd ered By: MARGIE Monique on 08-09-2024 Lymphocytes Auto (Unsp spec) [#/Vol] 1.43 10*3/uL 0.83-4.51 [facility] Absolute neutrophil countOrd ered By: MARGIE Monique on 08-09-2024 Neutrophils (Bld) [#/Vol] 4.0 10*3/uL 2.0-7.7 [facility] Automated lymphocyte count a s percentage of total leukocytesOrdered By: MARGIE Monique on 08-09-2024 Lymphocytes/100 WBC Auto (Unsp spec) 23.5 % 19-41 [facility] Basophil percentageOrdered B y: MARGEI Monique on 08-09-2024 Basophils/100 WBC (Bld) 0.5 % 0-1 [facility] CBC W/Diff, Automatedon 07-19 Absolute Lymph 1.43 X10 3/uL Normal 0.83-4.51 [facility] Comment on above: Performed By: #### L 100.0100 ####[facility] [address] [place], [address] Absolute Neut 4.0 X10 3/uL Normal 2.0-7.7 [facility] Comment on above: Performed By: #### L 100.0100 ####[facility] [address] [place], [address] Basophils/100 WBC (Bld) 0.5 % Normal 0-1 [facility] Comment on above: Performed By: #### L 100.0100 ####[facility] [address] [place], [address] Eosinophils/100 WBC (Bld) 1.6 % Normal 0-5 [facility] Comment on above: Performed By: #### L 100.0100 ####[facility] [address] [place], [address] Erythrocyte distribution width (RBC) [Ratio] 18.0 % High 11.6-14.6 [facility] Comment on above: Performed By: #### L 100.0100 ####[facility] [address] [place], [address] Hematocrit (Bld) [Volume fraction] 41.0 % Normal 37-47 [facility] Comment on above: Performed By: #### L 100.0100 ####[facility] [address] [place], [address] Hemoglobin (Bld) [Mass/Vol] 12.3 g/dL Normal 12.0-15.0 [facility] Comment on above: Performed By: #### L 100.0100 ####[facility] [address] [place], [address] IG% 0.300 Normal 0.0-0.9 [facility] Comment on above: Result Comment: IG% - Immature Granulocytes (promyelocytes, myelocytes andmetamyelocytes) > 1% indicates that a LEFT SHIFT is Present. Performed By: #### L 100.0100 ####[facility] [address] [place], [address] Lymphocytes/100 WBC (Bld) 23.5 % Normal 19-41 [facility] Comment on above: Performed By: #### L 100.0100 ####[facility] [address] [place], [address] MCH (RBC) [Entitic mass] 27.7 pg Normal 27.0-32.0 [facility] Comment on above: Performed By: #### L 100.0100 ####[facility] [address] [place], [address] MCHC (RBC) [Mass/Vol] 30.0 g/dL Low 32-36 [facility] Comment on above: Performed By: #### L 100.0100 ####[facility] [address] [place], [address] MCV (RBC) [Entitic vol] 92.3 fL Normal 81-99 [facility] [facility] Comment on above: Performed By: #### L 100.0100 ####[facility] [address] [place], [address] Monocytes/100 WBC (Bld) 7.7 % Normal 0-10 [facility] Comment on above: Performed By: #### L 100.0100 ####[facility] [address] [place], [address] Neutrophils/100 WBC (Bld) 66.4 % Normal 47-70 [facility] Comment on above: Performed By: #### L 100.0100 ####[facility] [address] [place], [address] Nucleated RBC (Bld) [#/Vol] 0 10*3/uL Normal 0-5 [facility] Comment on above: Performed By: #### L 100.0100 ####[facility] [address] [place], [address] Platelet mean volume (Bld) [Entitic vol] 9.8 fL Normal 6.2-12.0 [facility] Comment on above: Performed By: #### L 100.0100 ####[facility] [address] [place], [address] Platelets (Bld) [#/Vol] 324 10*3/uL Normal 150-450 [facility] Comment on above: Performed By: #### L 100.0100 ####[facility] [address] [place], [address] RBC (Bld) [#/Vol] 4.44 10*6/uL Normal 4.2-5.4 [facility] Comment on above: Performed By: #### L 100.0100 ####[facility] [address] [place], [address] RDW SD 61.1 fl High 35.1-43.9 [facility] Comment on above: Performed By: #### L 100.0100 ####[facility] [address] [place], [address] WBC (Bld) [#/Vol] 6.1 10*3/uL Normal 4.4-11.0 [facility] Comment on above: Performed By: #### L 100.0100 ####[facility] [address] [place], [address] Eosinophil percentageOrdered By: MARGIE Monique on 08-09-2024 Eosinophils/100 WBC (Bld) 1.6 % 0-5 [facility] Erythrocyte distribution wid th (RBC) [Ratio]Ordered By: MARGIE Monique on 08-09-2024 Erythrocyte distribution width (RBC) [Entitic vol] 61.1 fL High 35.1-43.9 [facility] Erythrocyte distribution wid th ratioOrdered By: MARGIE Monique on 08-09-2024 Erythrocyte distribution width (RBC) [Ratio] 18.0 % High 11.6-14.6 [facility] Erythrocyte distribution wid th standard deviationOrdered By: MARGIE Monique on 08-09-2024 Erythrocyte distribution width (RBC) [Ratio] 61.1 fl High 35.1-43.9 [facility] Hematocrit Auto (Bld) [Volum e fraction]Ordered By: MARGIE Monique on 08-09-2024 Hematocrit (Bld) [Volume fraction] 41.0 % 37-47 [facility] Hemoglobin measurementOrdere d By: MARGIE Monique on 08-09-2024 Hemoglobin (Bld) [Mass/Vol] 12.3 g/dL 12.0-15.0 [facility] Immature granulocytes/100 WB C Auto (Bld)Ordered By: MARGIE Monique on 08-09-2024 Immature granulocytes/100 WBC (Bld) 0.300 % 0.0-0.9 [facility] Comment on above: IG% - Immature Granu locytes (promyelocytes, myelocytes and metamyelocytes) > 1% indicates that a LEFT SHIFT is Present. L503.7505on 08-09-2024 Natriuretic peptide B (Bld) [Mass/Vol] 354 pg/mL Normal <=900 [facility] Comment on above: Result Comment: Hear t Failure Unlikely: < 300 pg/mLHeart Failure Likely< 50 Years: > 450 pg/mL50-75 Years: > 900 pg/mL>75 Years: > 1800 pg/mL Performed By: #### L 503.7505 ####[facility] [address] [place], [address] Lymphocytes Auto (Unsp spec) [#/Vol]Ordered By: MARGIE Monique on 08-09-2024 Lymphocytes (Bld) [#/Vol] 1.43 10*3/uL 0.83-4.51 [facility] Lymphocytes/100 WBC Auto (Un sp spec)Ordered By: MARGIE Monique on 08-09-2024 Lymphocytes/100 WBC (Bld) 23.5 % 19-41 [facility] MCV (mean corpuscular volume ) determinationOrdered By: MARGIE Monique on 08-09-2024 MCV (RBC) [Entitic vol] 92.3 fL 81-99 [facility] Mean corpuscular hemoglobin (MCH) determinationOrdered By: MARGIE Monique on 08-09-2024 MCH (RBC) [Entitic mass] 27.7 pg 27.0-32.0 [facility] Mean corpuscular hemoglobin concentration (MCHC) determinationOrdered By: MARGIE Monique on 08-09-2024 MCHC (RBC) [Mass/Vol] 30.0 g/dL Low 32-36 [facility] Mean platelet volume determi nationOrdered By: MARGIE Monique on 08-09-2024 Platelet mean volume (Bld) [Entitic vol] 9.8 fL 6.2-12.0 [facility] Monocyte percentageOrdered B y: MARGIE Monique on 08-09-2024 Monocytes/100 WBC (Bld) 7.7 % 0-10 [facility] Natriuretic peptide.B prohor zach N-Terminal [Mass/Vol]Ordered By: Nicky Covarrubias on 08-09-2024 Natriuretic peptide B (Bld) [Mass/Vol] 354 pg/mL <900 [facility] Comment on above: Heart Failure Unlike ly: < 300 pg/mLHeart Failure Likely< 50 Years: > 450 pg/mL50-75 Years: > 900 pg/mL>75 Years: > 1800 pg/mL Natriuretic peptide.B prohor zach N-Terminal [Mass/volume] in Serum or PlasmaOrdered By: Nicky Covarrubias on 08-09-2024 Natriuretic peptide.B prohormone N-Terminal [Mass/Vol] 354 pg/mL <900 [facility] Comment on above: Heart Failure Unlike ly: < 300 pg/mLHeart Failure Likely< 50 Years: > 450 pg/mL50-75 Years: > 900 pg/mL>75 Years: > 1800 pg/mL Neutrophil percentageOrdered By: MARGIE Monique on 08-09-2024 Neutrophils/100 WBC (Bld) 66.4 % 47-70 [facility] Nucleated red blood cell per centageOrdered By: MARGIE Monique on 08-09-2024 Nucleated RBC/100 WBC (Bld) [Ratio] 0 % 0-5 [facility] Platelet countOrdered By: MARGIE Monique on 08-09-2024 Platelets (Bld) [#/Vol] 324 10*3/uL 150-450 [facility] RBC Auto (Bld) [#/Vol]Ordere d By: MARGIE Monique on 08-09-2024 RBC (Bld) [#/Vol] 4.44 10*6/uL 4.2-5.4 [facility] White blood cell (WBC) count Ordered By: MARGIE Monique on 08-09-2024 WBC (Bld) [#/Vol] 6.1 10*3/uL 4.4-11.0 [facility] Pulmonary Visit Reporton Pulmonary Visit Report Normal [facility] Internal Medicine Office Vis iton 06-15-2024 Internal Medicine Office Visit Normal [facility] Internal Medicine Office Vis iton 06-01-2024 Internal Medicine Office Visit Normal [facility] Urine Cultureon 05-31-2024 U[facility] Normal [facility] Comment on above: Performed By: #### M 100.2200 ####[facility] [address] [place], [address] Basic Metabolic Profile (BMP )on 05-30-2024 BUN Normal 7-18 [facility] Comment on above: Result Comment: Canc elled via OM: Order cancelled - Patient discharged Performed By: #### L 100.0100, L500.2500 ####[facility] [address] [place], [address] BUN/CRE Normal 10-20 [facility] Comment on above: Result Comment: Canc elled via OM: Order cancelled - Patient discharged Performed By: #### L 100.0100, L500.2500 ####[facility] [address] [place], [address] CA,Total Normal 8.5-10.1 [facility] Comment on above: Result Comment: Canc elled via OM: Order cancelled - Patient discharged Performed By: #### L 100.0100, L500.2500 ####[facility] [address] [place], [address] CL Normal 98-107 [facility] Comment on above: Result Comment: Canc elled via OM: Order cancelled - Patient discharged Performed By: #### L 100.0100, L500.2500 ####[facility] [address] [place], [address] CO2 Normal 21.0-32.0 [facility] Comment on above: Result Comment: Canc elled via OM: Order cancelled - Patient discharged Performed By: #### L 100.0100, L500.2500 ####[facility] [address] [place], [address] CREAT,SERUM Normal 0.55-1.02 [facility] Comment on above: Result Comment: Canc elled via OM: Order cancelled - Patient discharged Performed By: #### L 100.0100, L500.2500 ####[facility] [address] [place], [address] EST GFR Normal >60 [facility] Comment on above: Result Comment: Canc elled via OM: Order cancelled - Patient discharged Performed By: #### L 100.0100, L500.2500 ####[facility] [address] [place], [address] EST GFR - AA Normal >60 [facility] Comment on above: Result Comment: Canc elled via OM: Order cancelled - Patient discharged Performed By: #### L 100.0100, L500.2500 ####[facility] [address] [place], [address] GAP Normal 5-15 [facility] Comment on above: Result Comment: Canc elled via OM: Order cancelled - Patient discharged Performed By: #### L 100.0100, L500.2500 ####[facility] [address] [place], [address] GLU Normal 74-106 [facility] Comment on above: Result Comment: Canc elled via OM: Order cancelled - Patient discharged Performed By: #### L 100.0100, L500.2500 ####[facility] [address] [place], [address] Potassium Normal 3.5-5.1 [facility] Comment on above: Result Comment: Canc elled via OM: Order cancelled - Patient discharged Performed By: #### L 100.0100, L500.2500 ####[facility] [address] [place], [address] Basic Metabolic Profile (BMP) Normal 136-145 [facility] Comment on above: Result Comment: Canc elled via OM: Order cancelled - Patient discharged Performed By: #### L 100.0100, L500.2500 ####[facility] [address] [place], [address] CBC W/Diff, Automatedon 02- Absolute Neut Normal 2.0-7.7 [facility] Comment on above: Result Comment: Canc elled via OM: Order cancelled - Patient discharged Performed By: #### L 100.0100, L500.2500 ####[facility] [address] [place], [address] HCT Normal 37-47 [facility] Comment on above: Result Comment: Canc elled via OM: Order cancelled - Patient discharged Performed By: #### L 100.0100, L500.2500 ####[facility] [address] [place], [address] HGB Normal 12.0-15.0 [facility] Comment on above: Result Comment: Canc elled via OM: Order cancelled - Patient discharged Performed By: #### L 100.0100, L500.2500 ####[facility] [address] [place], [address] MCH Normal 27.0-32.0 [facility] Comment on above: Result Comment: Canc elled via OM: Order cancelled - Patient discharged Performed By: #### L 100.0100, L500.2500 ####[facility] [address] [place], [address] MCHC Normal 32-36 [facility] Comment on above: Result Comment: Canc elled via OM: Order cancelled - Patient discharged Performed By: #### L 100.0100, L500.2500 ####[facility] [address] [place], [address] MCV Normal 81-99 [facility] Comment on above: Result Comment: Canc elled via OM: Order cancelled - Patient discharged Performed By: #### L 100.0100, L500.2500 ####[facility] [address] [place], [address] NEUT% Normal 47-70 [facility] Comment on above: Result Comment: Canc elled via OM: Order cancelled - Patient discharged Performed By: #### L 100.0100, L500.2500 ####[facility] [address] [place], [address] PLT Normal 150-450 [facility] Comment on above: Result Comment: Canc elled via OM: Order cancelled - Patient discharged Performed By: #### L 100.0100, L500.2500 ####[facility] [address] [place], [address] RBC Normal 4.2-5.4 [facility] Comment on above: Result Comment: Canc elled via OM: Order cancelled - Patient discharged Performed By: #### L 100.0100, L500.2500 ####[facility] [address] [place], [address] RDW CV Normal 11.6-14.6 [facility] Comment on above: Result Comment: Canc elled via OM: Order cancelled - Patient discharged Performed By: #### L 100.0100, L500.2500 ####[facility] [address] [place], [address] RDW SD Normal 35.1-43.9 [facility] Comment on above: Result Comment: Canc elled via OM: Order cancelled - Patient discharged Performed By: #### L 100.0100, L500.2500 ####[facility] [address] [place], [address] WBC Normal 4.4-11.0 [facility] Comment on above: Result Comment: Canc elled via OM: Order cancelled - Patient discharged Performed By: #### L 100.0100, L500.2500 ####[facility] [address] [place], [address] Basic Metabolic Profile (BMP )on 05-29-2024 BUN Normal 7-18 [facility] Comment on above: Result Comment: Canc elled via OM: Order cancelled - Patient discharged Performed By: #### L 500.2500, L100.0100 ####[facility] [address] [place], [address] BUN/CRE Normal 10-20 [facility] Comment on above: Result Comment: Canc elled via OM: Order cancelled - Patient discharged Performed By: #### L 500.2500, L100.0100 ####[facility] [address] [place], [address] CA,Total Normal 8.5-10.1 [facility] Comment on above: Result Comment: Canc elled via OM: Order cancelled - Patient discharged Performed By: #### L 500.2500, L100.0100 ####[facility] [address] [place], [address] CL Normal 98-107 [facility] Comment on above: Result Comment: Canc elled via OM: Order cancelled - Patient discharged Performed By: #### L 500.2500, L100.0100 ####[facility] [address] [place], [address] CO2 Normal 21.0-32.0 [facility] Comment on above: Result Comment: Canc elled via OM: Order cancelled - Patient discharged Performed By: #### L 500.2500, L100.0100 ####[facility] [address] [place], [address] CREAT,SERUM Normal 0.55-1.02 [facility] Comment on above: Result Comment: Canc elled via OM: Order cancelled - Patient discharged Performed By: #### L 500.2500, L100.0100 ####[facility] [address] [place], [address] EST GFR Normal >60 [facility] Comment on above: Result Comment: Canc elled via OM: Order cancelled - Patient discharged Performed By: #### L 500.2500, L100.0100 ####[facility] [address] [place], [address] EST GFR - AA Normal >60 [facility] Comment on above: Result Comment: Canc elled via OM: Order cancelled - Patient discharged Performed By: #### L 500.2500, L100.0100 ####[facility] [address] [place], [address] GAP Normal 5-15 [facility] Comment on above: Result Comment: Canc elled via OM: Order cancelled - Patient discharged Performed By: #### L 500.2500, L100.0100 ####[facility] [address] [place], [address] GLU Normal 74-106 [facility] Comment on above: Result Comment: Canc elled via OM: Order cancelled - Patient discharged Performed By: #### L 500.2500, L100.0100 ####[facility] [address] [place], [address] Potassium Normal 3.5-5.1 [facility] Comment on above: Result Comment: Canc elled via OM: Order cancelled - Patient discharged Performed By: #### L 500.2500, L100.0100 ####[facility] [address] [place], [address] Basic Metabolic Profile (BMP) Normal 136-145 [facility] Comment on above: Result Comment: Canc elled via OM: Order cancelled - Patient discharged Performed By: #### L 500.2500, L100.0100 ####[facility] [address] [place], [address] CBC W/Diff, Automatedon 05-20 Absolute Neut Normal 2.0-7.7 [facility] Comment on above: Result Comment: Canc elled via OM: Order cancelled - Patient discharged Performed By: #### L 500.2500, L100.0100 ####[facility] [address] [place], [address] HCT Normal 37-47 [facility] Comment on above: Result Comment: Canc elled via OM: Order cancelled - Patient discharged Performed By: #### L 500.2500, L100.0100 ####[facility] [address] [place], [address] HGB Normal 12.0-15.0 [facility] Comment on above: Result Comment: Canc elled via OM: Order cancelled - Patient discharged Performed By: #### L 500.2500, L100.0100 ####[facility] [address] [place], [address] MCH Normal 27.0-32.0 [facility] Comment on above: Result Comment: Canc elled via OM: Order cancelled - Patient discharged Performed By: #### L 500.2500, L100.0100 ####[facility] [address] [place], [address] MCHC Normal 32-36 [facility] Comment on above: Result Comment: Canc elled via OM: Order cancelled - Patient discharged Performed By: #### L 500.2500, L100.0100 ####[facility] [address] [place], [address] MCV Normal 81-99 [facility] Comment on above: Result Comment: Canc elled via OM: Order cancelled - Patient discharged Performed By: #### L 500.2500, L100.0100 ####[facility] [address] [place], [address] NEUT% Normal 47-70 [facility] Comment on above: Result Comment: Canc elled via OM: Order cancelled - Patient discharged Performed By: #### L 500.2500, L100.0100 ####[facility] [address] [place], [address] PLT Normal 150-450 [facility] Comment on above: Result Comment: Canc elled via OM: Order cancelled - Patient discharged Performed By: #### L 500.2500, L100.0100 ####[facility] [address] [place], [address] RBC Normal 4.2-5.4 [facility] Comment on above: Result Comment: Canc elled via OM: Order cancelled - Patient discharged Performed By: #### L 500.2500, L100.0100 ####[facility] [address] [place], [address] RDW CV Normal 11.6-14.6 [facility] Comment on above: Result Comment: Canc elled via OM: Order cancelled - Patient discharged Performed By: #### L 500.2500, L100.0100 ####[facility] [address] [place], [address] RDW SD Normal 35.1-43.9 [facility] Comment on above: Result Comment: Canc elled via OM: Order cancelled - Patient discharged Performed By: #### L 500.2500, L100.0100 ####[facility] [address] [place], [address] WBC Normal 4.4-11.0 [facility] Comment on above: Result Comment: Canc elled via OM: Order cancelled - Patient discharged Performed By: #### L 500.2500, L100.0100 ####[facility] [address] [place], [address] Urine cultureOrdered By: John Botello on 05-29-2024 Bacteria identified Cx Nom (U) Presumptive E. coli Abnormal [facility] Basic Metabolic Profile (BMP )on 05-28-2024 BUN Normal 7-18 [facility] Comment on above: Result Comment: Canc elled via OM: Order cancelled - Patient discharged Performed By: #### L 500.2500, L100.0100 ####[facility] [address] [place], [address] BUN/CRE Normal 10-20 [facility] Comment on above: Result Comment: Canc elled via OM: Order cancelled - Patient discharged Performed By: #### L 500.2500, L100.0100 ####[facility] [address] [place], [address] CA,Total Normal 8.5-10.1 [facility] Comment on above: Result Comment: Canc elled via OM: Order cancelled - Patient discharged Performed By: #### L 500.2500, L100.0100 ####[facility] [address] [place], [address] CL Normal 98-107 [facility] Comment on above: Result Comment: Canc elled via OM: Order cancelled - Patient discharged Performed By: #### L 500.2500, L100.0100 ####[facility] [address] [place], [address] CO2 Normal 21.0-32.0 [facility] Comment on above: Result Comment: Canc elled via OM: Order cancelled - Patient discharged Performed By: #### L 500.2500, L100.0100 ####[facility] [address] [place], [address] CREAT,SERUM Normal 0.55-1.02 [facility] Comment on above: Result Comment: Canc elled via OM: Order cancelled - Patient discharged Performed By: #### L 500.2500, L100.0100 ####[facility] [address] [place], [address] EST GFR Normal >60 [facility] Comment on above: Result Comment: Canc elled via OM: Order cancelled - Patient discharged Performed By: #### L 500.2500, L100.0100 ####[facility] [address] [place], [address] EST GFR - AA Normal >60 [facility] Comment on above: Result Comment: Canc elled via OM: Order cancelled - Patient discharged Performed By: #### L 500.2500, L100.0100 ####[facility] [address] [place], [address] GAP Normal 5-15 [facility] Comment on above: Result Comment: Canc elled via OM: Order cancelled - Patient discharged Performed By: #### L 500.2500, L100.0100 ####[facility] [address] [place], [address] GLU Normal 74-106 [facility] Comment on above: Result Comment: Canc elled via OM: Order cancelled - Patient discharged Performed By: #### L 500.2500, L100.0100 ####[facility] [address] [place], [address] Potassium Normal 3.5-5.1 [facility] Comment on above: Result Comment: Canc elled via OM: Order cancelled - Patient discharged Performed By: #### L 500.2500, L100.0100 ####[facility] [address] [place], [address] Basic Metabolic Profile (BMP) Normal 136-145 [facility] Comment on above: Result Comment: Canc elled via OM: Order cancelled - Patient discharged Performed By: #### L 500.2500, L100.0100 ####[facility] [address] [place], [address] CBC W/Diff, Automatedon 02-0 Absolute Neut Normal 2.0-7.7 [facility] Comment on above: Result Comment: Canc elled via OM: Order cancelled - Patient discharged Performed By: #### L 500.2500, L100.0100 ####[facility] [address] [place], [address] HCT Normal 37-47 [facility] Comment on above: Result Comment: Canc elled via OM: Order cancelled - Patient discharged Performed By: #### L 500.2500, L100.0100 ####[facility] [address] [place], [address] HGB Normal 12.0-15.0 [facility] Comment on above: Result Comment: Canc elled via OM: Order cancelled - Patient discharged Performed By: #### L 500.2500, L100.0100 ####[facility] [address] [place], [address] MCH Normal 27.0-32.0 [facility] Comment on above: Result Comment: Canc elled via OM: Order cancelled - Patient discharged Performed By: #### L 500.2500, L100.0100 ####[facility] [address] [place], [address] MCHC Normal 32-36 [facility] Comment on above: Result Comment: Canc elled via OM: Order cancelled - Patient discharged Performed By: #### L 500.2500, L100.0100 ####[facility] [address] [place], [address] MCV Normal 81-99 [facility] Comment on above: Result Comment: Canc elled via OM: Order cancelled - Patient discharged Performed By: #### L 500.2500, L100.0100 ####[facility] [address] [place], [address] NEUT% Normal 47-70 [facility] Comment on above: Result Comment: Canc elled via OM: Order cancelled - Patient discharged Performed By: #### L 500.2500, L100.0100 ####[facility] [address] [place], [address] PLT Normal 150-450 [facility] Comment on above: Result Comment: Canc elled via OM: Order cancelled - Patient discharged Performed By: #### L 500.2500, L100.0100 ####[facility] [address] [place], [address] RBC Normal 4.2-5.4 [facility] Comment on above: Result Comment: Canc elled via OM: Order cancelled - Patient discharged Performed By: #### L 500.2500, L100.0100 ####[facility] [address] [place], [address] RDW CV Normal 11.6-14.6 [facility] Comment on above: Result Comment: Canc elled via OM: Order cancelled - Patient discharged Performed By: #### L 500.2500, L100.0100 ####[facility] [address] [place], [address] RDW SD Normal 35.1-43.9 [facility] Comment on above: Result Comment: Canc elled via OM: Order cancelled - Patient discharged Performed By: #### L 500.2500, L100.0100 ####[facility] [address] [place], [address] WBC Normal 4.4-11.0 [facility] Comment on above: Result Comment: Canc elled via OM: Order cancelled - Patient discharged Performed By: #### L 500.2500, L100.0100 ####[facility] [address] [place], [address] Laboratory - Chemistry and C hemistry - challengeOrdered By: Dustin Botello on 05-28-2024 Bilirubin Ql (U) Negative [facility] Glucose Ql (U) Negative [facility] Ketones Ql (U) Negative [facility] pH (U) 5.0 [pH] [facility] Specific gravity (U) [Rel density] 1.020 [facility] Urobilinogen (U) [Mass/Vol] Negative [facility] Laboratory - Hematology and Cell countsOrdered By: Dustin Botello on 05-28-2024 Hemoglobin Ql (U) Large [facility] Laboratory - Specimen inform ationOrdered By: Dustin Botello on 05-28-2024 Clarity (U) Cloudy [facility] Color (U) Dk Yellow [facility] Laboratory - UrinalysisOrder ed By: Dustin Botello on 05-28-2024 Nitrite Ql (U) Negative [facility] Protein Ql (U) 1+ [facility] No Panel InformationOrdered By: Dustin Botello on 05-28-2024 Urine Leukocytes Positive [facility] Urine Non-Hemolyzed Blood [facility] Urgent Care Visit Reporton 0 05-28-2024 Urgent Care Visit Report Normal [facility] Basic Metabolic Profile (BMP )on 05-27-2024 BUN Normal 7-18 [facility] Comment on above: Result Comment: Canc elled via OM: Order cancelled - Patient discharged Performed By: #### L 100.0100, L500.2500 ####[facility] [address] [place], [address] BUN/CRE Normal 10-20 [facility] Comment on above: Result Comment: Canc elled via OM: Order cancelled - Patient discharged Performed By: #### L 100.0100, L500.2500 ####[facility] [address] [place], [address] CA,Total Normal 8.5-10.1 [facility] Comment on above: Result Comment: Canc elled via OM: Order cancelled - Patient discharged Performed By: #### L 100.0100, L500.2500 ####[facility] [address] [place], [address] CL Normal 98-107 [facility] Comment on above: Result Comment: Canc elled via OM: Order cancelled - Patient discharged Performed By: #### L 100.0100, L500.2500 ####[facility] [address] [place], [address] CO2 Normal 21.0-32.0 [facility] Comment on above: Result Comment: Canc elled via OM: Order cancelled - Patient discharged Performed By: #### L 100.0100, L500.2500 ####[facility] [address] [place], [address] CREAT,SERUM Normal 0.55-1.02 [facility] Comment on above: Result Comment: Canc elled via OM: Order cancelled - Patient discharged Performed By: #### L 100.0100, L500.2500 ####[facility] [address] [place], [address] EST GFR Normal >60 [facility] Comment on above: Result Comment: Canc elled via OM: Order cancelled - Patient discharged Performed By: #### L 100.0100, L500.2500 ####[facility] [address] [place], [address] EST GFR - AA Normal >60 [facility] Comment on above: Result Comment: Canc elled via OM: Order cancelled - Patient discharged Performed By: #### L 100.0100, L500.2500 ####[facility] [address] [place], [address] GAP Normal 5-15 [facility] Comment on above: Result Comment: Canc elled via OM: Order cancelled - Patient discharged Performed By: #### L 100.0100, L500.2500 ####[facility] [address] [place], [address] GLU Normal 74-106 [facility] Comment on above: Result Comment: Canc elled via OM: Order cancelled - Patient discharged Performed By: #### L 100.0100, L500.2500 ####[facility] [address] [place], [address] Potassium Normal 3.5-5.1 [facility] Comment on above: Result Comment: Canc elled via OM: Order cancelled - Patient discharged Performed By: #### L 100.0100, L500.2500 ####[facility] [address] [place], [address] Basic Metabolic Profile (BMP) Normal 136-145 [facility] Comment on above: Result Comment: Canc elled via OM: Order cancelled - Patient discharged Performed By: #### L 100.0100, L500.2500 ####[facility] [address] [place], [address] CBC W/Diff, Automatedon 02-0 -2024 Absolute Neut Normal 2.0-7.7 [facility] Comment on above: Result Comment: Canc elled via OM: Order cancelled - Patient discharged Performed By: #### L 100.0100, L500.2500 ####[facility] [address] [place], [address] HCT Normal 37-47 [facility] Comment on above: Result Comment: Canc elled via OM: Order cancelled - Patient discharged Performed By: #### L 100.0100, L500.2500 ####[facility] [address] [place], [address] HGB Normal 12.0-15.0 [facility] Comment on above: Result Comment: Canc elled via OM: Order cancelled - Patient discharged Performed By: #### L 100.0100, L500.2500 ####[facility] [address] [place], [address] MCH Normal 27.0-32.0 [facility] Comment on above: Result Comment: Canc elled via OM: Order cancelled - Patient discharged Performed By: #### L 100.0100, L500.2500 ####[facility] [address] [place], [address] MCHC Normal 32-36 [facility] Comment on above: Result Comment: Canc elled via OM: Order cancelled - Patient discharged Performed By: #### L 100.0100, L500.2500 ####[facility] [address] [place], [address] MCV Normal 81-99 [facility] Comment on above: Result Comment: Canc elled via OM: Order cancelled - Patient discharged Performed By: #### L 100.0100, L500.2500 ####[facility] [address] [place], [address] NEUT% Normal 47-70 [facility] Comment on above: Result Comment: Canc elled via OM: Order cancelled - Patient discharged Performed By: #### L 100.0100, L500.2500 ####[facility] [address] [place], [address] PLT Normal 150-450 [facility] Comment on above: Result Comment: Canc elled via OM: Order cancelled - Patient discharged Performed By: #### L 100.0100, L500.2500 ####[facility] [address] [place], [address] RBC Normal 4.2-5.4 [facility] Comment on above: Result Comment: Canc elled via OM: Order cancelled - Patient discharged Performed By: #### L 100.0100, L500.2500 ####[facility] [address] [place], [address] RDW CV Normal 11.6-14.6 [facility] Comment on above: Result Comment: Canc elled via OM: Order cancelled - Patient discharged Performed By: #### L 100.0100, L500.2500 ####[facility] [address] [place], [address] RDW SD Normal 35.1-43.9 [facility] Comment on above: Result Comment: Canc elled via OM: Order cancelled - Patient discharged Performed By: #### L 100.0100, L500.2500 ####[facility] [address] [place], [address] WBC Normal 4.4-11.0 [facility] Comment on above: Result Comment: Canc elled via OM: Order cancelled - Patient discharged Performed By: #### L 100.0100, L500.2500 ####[facility] [address] [place], [address] Basic Metabolic Profile (BMP )on 05-26-2024 BUN Normal 7-18 [facility] Comment on above: Result Comment: Canc elled via OM: Order cancelled - Patient discharged Performed By: #### L 100.0100, L500.2500 ####[facility] [address] [place], [address] BUN/CRE Normal 10-20 [facility] Comment on above: Result Comment: Canc elled via OM: Order cancelled - Patient discharged Performed By: #### L 100.0100, L500.2500 ####[facility] [address] [place], [address] CA,Total Normal 8.5-10.1 [facility] Comment on above: Result Comment: Canc elled via OM: Order cancelled - Patient discharged Performed By: #### L 100.0100, L500.2500 ####[facility] [address] [place], [address] CL Normal 98-107 [facility] Comment on above: Result Comment: Canc elled via OM: Order cancelled - Patient discharged Performed By: #### L 100.0100, L500.2500 ####[facility] [address] [place], [address] CO2 Normal 21.0-32.0 [facility] Comment on above: Result Comment: Canc elled via OM: Order cancelled - Patient discharged Performed By: #### L 100.0100, L500.2500 ####[facility] [address] [place], [address] CREAT,SERUM Normal 0.55-1.02 [facility] Comment on above: Result Comment: Canc elled via OM: Order cancelled - Patient discharged Performed By: #### L 100.0100, L500.2500 ####[facility] [address] [place], [address] EST GFR Normal >60 [facility] Comment on above: Result Comment: Canc elled via OM: Order cancelled - Patient discharged Performed By: #### L 100.0100, L500.2500 ####[facility] [address] [place], [address] EST GFR - AA Normal >60 [facility] Comment on above: Result Comment: Canc elled via OM: Order cancelled - Patient discharged Performed By: #### L 100.0100, L500.2500 ####[facility] [address] [place], [address] GAP Normal 5-15 [facility] Comment on above: Result Comment: Canc elled via OM: Order cancelled - Patient discharged Performed By: #### L 100.0100, L500.2500 ####[facility] [address] [place], [address] GLU Normal 74-106 [facility] Comment on above: Result Comment: Canc elled via OM: Order cancelled - Patient discharged Performed By: #### L 100.0100, L500.2500 ####[facility] [address] [place], [address] Potassium Normal 3.5-5.1 [facility] Comment on above: Result Comment: Canc elled via OM: Order cancelled - Patient discharged Performed By: #### L 100.0100, L500.2500 ####[facility] [address] [place], [address] Basic Metabolic Profile (BMP) Normal 136-145 [facility] Comment on above: Result Comment: Canc elled via OM: Order cancelled - Patient discharged Performed By: #### L 100.0100, L500.2500 ####[facility] [address] [place], [address] CBC W/Diff, Automatedon 02-0 Absolute Neut Normal 2.0-7.7 [facility] Comment on above: Result Comment: Canc elled via OM: Order cancelled - Patient discharged Performed By: #### L 100.0100, L500.2500 ####[facility] [address] [place], [address] HCT Normal 37-47 [facility] Comment on above: Result Comment: Canc elled via OM: Order cancelled - Patient discharged Performed By: #### L 100.0100, L500.2500 ####[facility] [address] [place], [address] HGB Normal 12.0-15.0 [facility] Comment on above: Result Comment: Canc elled via OM: Order cancelled - Patient discharged Performed By: #### L 100.0100, L500.2500 ####[facility] [address] [place], [address] MCH Normal 27.0-32.0 [facility] Comment on above: Result Comment: Canc elled via OM: Order cancelled - Patient discharged Performed By: #### L 100.0100, L500.2500 ####[facility] [address] [place], [address] MCHC Normal 32-36 [facility] Comment on above: Result Comment: Canc elled via OM: Order cancelled - Patient discharged Performed By: #### L 100.0100, L500.2500 ####[facility] [address] [place], [address] MCV Normal 81-99 [facility] Comment on above: Result Comment: Canc elled via OM: Order cancelled - Patient discharged Performed By: #### L 100.0100, L500.2500 ####[facility] [address] [place], [address] NEUT% Normal 47-70 [facility] Comment on above: Result Comment: Canc elled via OM: Order cancelled - Patient discharged Performed By: #### L 100.0100, L500.2500 ####[facility] [address] [place], [address] PLT Normal 150-450 [facility] Comment on above: Result Comment: Canc elled via OM: Order cancelled - Patient discharged Performed By: #### L 100.0100, L500.2500 ####[facility] [address] [place], [address] RBC Normal 4.2-5.4 [facility] Comment on above: Result Comment: Canc elled via OM: Order cancelled - Patient discharged Performed By: #### L 100.0100, L500.2500 ####[facility] [address] [place], [address] RDW CV Normal 11.6-14.6 [facility] Comment on above: Result Comment: Canc elled via OM: Order cancelled - Patient discharged Performed By: #### L 100.0100, L500.2500 ####[facility] [address] [place], [address] RDW SD Normal 35.1-43.9 [facility] Comment on above: Result Comment: Canc elled via OM: Order cancelled - Patient discharged Performed By: #### L 100.0100, L500.2500 ####[facility] [address] [place], [address] WBC Normal 4.4-11.0 [facility] Comment on above: Result Comment: Canc elled via OM: Order cancelled - Patient discharged Performed By: #### L 100.0100, L500.2500 ####[facility] [address] [place], [address] Basic Metabolic Profile (BMP )on 05-25-2024 BUN Normal 7-18 [facility] Comment on above: Result Comment: Canc elled via OM: Order cancelled - Patient discharged Performed By: #### L 100.0100, L500.2500 ####[facility] [address] [place], [address] BUN/CRE Normal 10-20 [facility] Comment on above: Result Comment: Canc elled via OM: Order cancelled - Patient discharged Performed By: #### L 100.0100, L500.2500 ####[facility] [address] [place], [address] CA,Total Normal 8.5-10.1 [facility] Comment on above: Result Comment: Canc elled via OM: Order cancelled - Patient discharged Performed By: #### L 100.0100, L500.2500 ####[facility] [address] [place], [address] CL Normal 98-107 [facility] Comment on above: Result Comment: Canc elled via OM: Order cancelled - Patient discharged Performed By: #### L 100.0100, L500.2500 ####[facility] [address] [place], [address] CO2 Normal 21.0-32.0 [facility] Comment on above: Result Comment: Canc elled via OM: Order cancelled - Patient discharged Performed By: #### L 100.0100, L500.2500 ####[facility] [address] [place], [address] CREAT,SERUM Normal 0.55-1.02 [facility] Comment on above: Result Comment: Canc elled via OM: Order cancelled - Patient discharged Performed By: #### L 100.0100, L500.2500 ####[facility] [address] [place], [address] EST GFR Normal >60 [facility] Comment on above: Result Comment: Canc elled via OM: Order cancelled - Patient discharged Performed By: #### L 100.0100, L500.2500 ####[facility] [address] [place], [address] EST GFR - AA Normal >60 [facility] Comment on above: Result Comment: Canc elled via OM: Order cancelled - Patient discharged Performed By: #### L 100.0100, L500.2500 ####[facility] [address] [place], [address] GAP Normal 5-15 [facility] Comment on above: Result Comment: Canc elled via OM: Order cancelled - Patient discharged Performed By: #### L 100.0100, L500.2500 ####[facility] [address] [place], [address] GLU Normal 74-106 [facility] Comment on above: Result Comment: Canc elled via OM: Order cancelled - Patient discharged Performed By: #### L 100.0100, L500.2500 ####[facility] [address] [place], [address] Potassium Normal 3.5-5.1 [facility] Comment on above: Result Comment: Canc elled via OM: Order cancelled - Patient discharged Performed By: #### L 100.0100, L500.2500 ####[facility] [address] [place], [address] Basic Metabolic Profile (BMP) Normal 136-145 [facility] Comment on above: Result Comment: Canc elled via OM: Order cancelled - Patient discharged Performed By: #### L 100.0100, L500.2500 ####[facility] [address] [place], [address] CBC W/Diff, Automatedon 02-0 Absolute Neut Normal 2.0-7.7 [facility] Comment on above: Result Comment: Canc elled via OM: Order cancelled - Patient discharged Performed By: #### L 100.0100, L500.2500 ####[facility] [address] [place], [address] HCT Normal 37-47 [facility] Comment on above: Result Comment: Canc elled via OM: Order cancelled - Patient discharged Performed By: #### L 100.0100, L500.2500 ####[facility] [address] [place], [address] HGB Normal 12.0-15.0 [facility] Comment on above: Result Comment: Canc elled via OM: Order cancelled - Patient discharged Performed By: #### L 100.0100, L500.2500 ####[facility] [address] [place], [address] MCH Normal 27.0-32.0 [facility] Comment on above: Result Comment: Canc elled via OM: Order cancelled - Patient discharged Performed By: #### L 100.0100, L500.2500 ####[facility] [address] [place], [address] MCHC Normal 32-36 [facility] Comment on above: Result Comment: Canc elled via OM: Order cancelled - Patient discharged Performed By: #### L 100.0100, L500.2500 ####[facility] [address] [place], [address] MCV Normal 81-99 [facility] Comment on above: Result Comment: Canc elled via OM: Order cancelled - Patient discharged Performed By: #### L 100.0100, L500.2500 ####[facility] [address] [place], [address] NEUT% Normal 47-70 [facility] Comment on above: Result Comment: Canc elled via OM: Order cancelled - Patient discharged Performed By: #### L 100.0100, L500.2500 ####[facility] [address] [place], [address] PLT Normal 150-450 [facility] Comment on above: Result Comment: Canc elled via OM: Order cancelled - Patient discharged Performed By: #### L 100.0100, L500.2500 ####[facility] [address] [place], [address] RBC Normal 4.2-5.4 [facility] Comment on above: Result Comment: Canc elled via OM: Order cancelled - Patient discharged Performed By: #### L 100.0100, L500.2500 ####[facility] [address] [place], [address] RDW CV Normal 11.6-14.6 [facility] Comment on above: Result Comment: Canc elled via OM: Order cancelled - Patient discharged Performed By: #### L 100.0100, L500.2500 ####[facility] [address] [place], [address] RDW SD Normal 35.1-43.9 [facility] Comment on above: Result Comment: Canc elled via OM: Order cancelled - Patient discharged Performed By: #### L 100.0100, L500.2500 ####[facility] [address] [place], [address] WBC Normal 4.4-11.0 [facility] Comment on above: Result Comment: Canc elled via OM: Order cancelled - Patient discharged Performed By: #### L 100.0100, L500.2500 ####[facility] [address] [place], [address] Absolute lymphocyte countOrd ered By: Nany Kebede on 05-24-2024 Lymphocytes Auto (Unsp spec) [#/Vol] 0.93 10*3/uL 0.83-4.51 [facility] Absolute neutrophil countOrd ered By: Nany Kebede on 05-24-2024 Neutrophils (Bld) [#/Vol] 9.1 10*3/uL High 2.0-7.7 [facility] Automated lymphocyte count a s percentage of total leukocytesOrdered By: Nany Kebede on 05-24-2024 Lymphocytes/100 WBC Auto (Unsp spec) 8.5 % Low 19-41 [facility] Basic Metabolic Profile (BMP )on 05-24-2024 BUN/CRE 21.6 RATIO High 10-20 [facility] Comment on above: Performed By: #### L 500.2500, L100.0100 ####[facility] [address] [place], [address] CA,Total 9.1 mg/dL Normal 8.5-10.1 [facility] Comment on above: Performed By: #### L 500.2500, L100.0100 ####[facility] [address] [place], [address] Chloride [Moles/Vol] 106 mmol/L Normal 98-107 [facility] Comment on above: Performed By: #### L 500.2500, L100.0100 ####[facility] [address] [place], [address] CO2 [Moles/Vol] 27.0 mmol/L Normal 21.0-32.0 [facility] Comment on above: Performed By: #### L 500.2500, L100.0100 ####[facility] [address] [place], [address] Creatinine [Mass/Vol] 0.88 mg/dL Normal 0.55-1.02 [facility] Comment on above: Result Comment: The validity of the calculated GFR GFRAA in patients over70 years has not been determined. Clinical correlation isessential. Performed By: #### L 500.2500, L100.0100 ####[facility] [address] [place], [address] ECRCL 97.18 ml/min Normal [facility] Comment on above: Performed By: #### L 500.2500, L100.0100 ####[facility] [address] [place], [address] EST GFR - AA 85 mL/min Normal >60 [facility] Comment on above: Result Comment: Afri can Citizen Of [place] GFR Calc Performed By: #### L 500.2500, L100.0100 ####[facility] [address] [place], [address] GAP 6 Normal 5-15 [facility] Comment on above: Performed By: #### L 500.2500, L100.0100 ####[facility] [address] [place], [address] GFR/1.73 sq M.predicted among non-blacks MDRD (S/P/Bld) [Vol rate/Area] 70 mL/min/{1.73_m2} Normal >60 [facility] Comment on above: Result Comment: Non- GFR Calc Performed By: #### L 500.2500, L100.0100 ####[facility] [address] [place], [address] Glucose [Mass/Vol] 118 mg/dL High 74-106 [facility] Comment on above: Result Comment: Fast ing Glucose result from 100 to 125 mg/dLsuggests IMPAIRED HOMEOSTASIS per A.D.A. criteria. Performed By: #### L 500.2500, L100.0100 ####[facility] [address] [place], [address] Potassium [Moles/Vol] 4.1 mmol/L Normal 3.5-5.1 [facility] Comment on above: Performed By: #### L 500.2500, L100.0100 ####[facility] [address] [place], [address] Sodium [Moles/Vol] 138 mmol/L Normal 136-145 [facility] Comment on above: Performed By: #### L 500.2500, L100.0100 ####[facility] [address] [place], [address] Urea nitrogen [Mass/Vol] 19 mg/dL High 7-18 [facility] Comment on above: Performed By: #### L 500.2500, L100.0100 ####[facility] [address] [place], [address] Basophil percentageOrdered B y: Nany Delio on 05-24-2024 Basophils/100 WBC (Bld) 0.6 % 0-1 [facility] Blood urea nitrogen (BUN)/cr eatinine ratioOrdered By: Nanyama Kebede on 05-24-2024 Urea nitrogen/Creatinine [Mass ratio] 21.6 mg/mg High 10-20 [facility] CBC W/Diff, Automatedon 02-0 -2024 Absolute Lymph 0.93 X10 3/uL Normal 0.83-4.51 [facility] Comment on above: Performed By: #### L 500.2500, L100.0100 ####[facility] [address] [place], [address] Absolute Neut 9.1 X10 3/uL High 2.0-7.7 [facility] Comment on above: Performed By: #### L 500.2500, L100.0100 ####[facility] [address] [place], [address] Basophils/100 WBC (Bld) 0.6 % Normal 0-1 [facility] Comment on above: Performed By: #### L 500.2500, L100.0100 ####[facility] [address] [place], [address] Eosinophils/100 WBC (Bld) 0.0 % Normal 0-5 [facility] Comment on above: Performed By: #### L 500.2500, L100.0100 ####[facility] [address] [place], [address] Erythrocyte distribution width (RBC) [Ratio] 17.2 % High 11.6-14.6 [facility] Comment on above: Performed By: #### L 500.2500, L100.0100 ####[facility] [address] [place], [address] Hematocrit (Bld) [Volume fraction] 42.7 % Normal 37-47 [facility] Comment on above: Performed By: #### L 500.2500, L100.0100 ####[facility] [address] [place], [address] Hemoglobin (Bld) [Mass/Vol] 12.7 g/dL Normal 12.0-15.0 [facility] Comment on above: Performed By: #### L 500.2500, L100.0100 ####[facility] [address] [place], [address] IG% 2.300 High 0.0-0.9 [facility] Comment on above: Result Comment: IG% - Immature Granulocytes (promyelocytes, myelocytes andmetamyelocytes) > 1% indicates that a LEFT SHIFT is Present. Performed By: #### L 500.2500, L100.0100 ####[facility] [address] [place], [address] Lymphocytes/100 WBC (Bld) 8.5 % Low 19-41 [facility] Comment on above: Performed By: #### L 500.2500, L100.0100 ####[facility] [address] [place], [address] MCH (RBC) [Entitic mass] 27.5 pg Normal 27.0-32.0 [facility] Comment on above: Performed By: #### L 500.2500, L100.0100 ####[facility] [address] [place], [address] MCHC (RBC) [Mass/Vol] 29.7 g/dL Low 32-36 [facility] Comment on above: Performed By: #### L 500.2500, L100.0100 ####[facility] [address] [place], [address] MCV (RBC) [Entitic vol] 92.6 fL Normal 81-99 [facility] Comment on above: Performed By: #### L 500.2500, L100.0100 ####[facility] [address] [place], [address] Monocytes/100 WBC (Bld) 5.3 % Normal 0-10 [facility] Comment on above: Performed By: #### L 500.2500, L100.0100 ####[facility] [address] [place], [address] Neutrophils/100 WBC (Bld) 83.3 % High 47-70 [facility] Comment on above: Performed By: #### L 500.2500, L100.0100 ####[facility] [address] [place], [address] Nucleated RBC (Bld) [#/Vol] 0.2 10*3/uL Normal 0-5 [facility] Comment on above: Performed By: #### L 500.2500, L100.0100 ####[facility] [address] [place], [address] Platelet mean volume (Bld) [Entitic vol] 9.7 fL Normal 6.2-12.0 [facility] Comment on above: Performed By: #### L 500.2500, L100.0100 ####[facility] [address] [place], [address] Platelets (Bld) [#/Vol] 309 10*3/uL Normal 150-450 [facility] Comment on above: Performed By: #### L 500.2500, L100.0100 ####[facility] [address] [place], [address] RBC (Bld) [#/Vol] 4.61 10*6/uL Normal 4.2-5.4 [facility] Comment on above: Performed By: #### L 500.2500, L100.0100 ####[facility] [address] [place], [address] RDW SD 57.7 fl High 35.1-43.9 [facility] Comment on above: Performed By: #### L 500.2500, L100.0100 ####[facility] [address] [place], [address] WBC (Bld) [#/Vol] 10.9 10*3/uL Normal 4.4-11.0 [facility] Comment on above: Performed By: #### L 500.2500, L100.0100 ####[facility] [address] [place], [address] Carbon dioxide measurementOr dered By: Nany Kebede on 05-24-2024 CO2 [Moles/Vol] 27.0 mmol/L 21.0-32.0 [facility] Chloride measurementOrdered By: Nany Kebede on 05-24-2024 Chloride [Moles/Vol] 106 mmol/L 98-107 [facility] Discharge Instructionon 02-0 Discharge Instruction Normal [facility] Eosinophil percentageOrdered By: Nany Kebede on 05-24-2024 Eosinophils/100 WBC (Bld) 0.0 % 0-5 [facility] Erythrocyte distribution wid th ratioOrdered By: Nany Kebede on 05-24-2024 Erythrocyte distribution width (RBC) [Ratio] 17.2 % High 11.6-14.6 [facility] Erythrocyte distribution wid th standard deviationOrdered By: Nany Kebede on 05-24-2024 Erythrocyte distribution width (RBC) [Entitic vol] 57.7 fL High 35.1-43.9 [facility] Erythrocyte distribution width (RBC) [Ratio] 57.7 fl High 35.1-43.9 [facility] Estimated glomerular filtrat ion rate (GFR) AmericanOrdered By: Nany Kebede on 05-24-2024 Estimated GFR (MDRD) Amer 85 mL/min >60 [facility] Comment on above: GFR Calc Estimation of creatinine yadi aranceOrdered By: Nany Kebede on 05-24-2024 Estimated Creatinine Clearance Calc 97.18 ml/min [facility] Glomerular filtration rate ( GFR) estimationOrdered By: Nany Keebde on 05-24-2024 Estimated GFR (MDRD) Non-Af Amer 70 mL/min >60 [facility] Comment on above: Non- GFR Calc GFR/1.73 sq M.predicted among non-blacks MDRD (S/P/Bld) [Vol rate/Area] 70 mL/min/{1.73_m2} >60 [facility] Comment on above: Non- GFR Calc Glucose measurementOrdered B y: Nany Kebede on 05-24-2024 Glucose [Mass/Vol] 118 mg/dL High 74-106 [facility] Comment on above: Fasting Glucose resu lt from 100 to 125 mg/dL suggests IMPAIRED HOMEOSTASIS per A.D.A. criteria. Hematocrit Auto (Bld) [Volum e fraction]Ordered By: Nany Kebede on 05-24-2024 Hematocrit (Bld) [Volume fraction] 42.7 % 37-47 [facility] Hemoglobin measurementOrdere d By: Nany Kebede on 05-24-2024 Hemoglobin (Bld) [Mass/Vol] 12.7 g/dL 12.0-15.0 [facility] Immature granulocytes/100 WB C Auto (Bld)Ordered By: Nany Kebede on 05-24-2024 Immature granulocytes/100 WBC (Bld) 2.300 % High 0.0-0.9 [facility] Comment on above: IG% - Immature Granu locytes (promyelocytes, myelocytes and metamyelocytes) > 1% indicates that a LEFT SHIFT is Present. Lymphocytes Auto (Unsp spec) [#/Vol]Ordered By: Nany Kebede on 05-24-2024 Lymphocytes (Bld) [#/Vol] 0.93 10*3/uL 0.83-4.51 [facility] Lymphocytes/100 WBC Auto (Un sp spec)Ordered By: Nany Kebede on 05-24-2024 Lymphocytes/100 WBC (Bld) 8.5 % Low 19-41 [facility] MCV (mean corpuscular volume ) determinationOrdered By: Nany Kebede on 05-24-2024 MCV (RBC) [Entitic vol] 92.6 fL 81-99 [facility] Mean corpuscular hemoglobin (MCH) determinationOrdered By: Nany Kebede on 05-24-2024 MCH (RBC) [Entitic mass] 27.5 pg 27.0-32.0 [facility] Mean corpuscular hemoglobin concentration (MCHC) determinationOrdered By: Nany Kebede on 05-24-2024 MCHC (RBC) [Mass/Vol] 29.7 g/dL Low 32-36 [facility] Mean platelet volume determi nationOrdered By: Nany Kebede on 05-24-2024 Platelet mean volume (Bld) [Entitic vol] 9.7 fL 6.2-12.0 [facility] Monocyte percentageOrdered B y: Nany Kebede on 05-24-2024 Monocytes/100 WBC (Bld) 5.3 % 0-10 [facility] Neutrophil percentageOrdered By: Nany Kebede on 05-24-2024 Neutrophils/100 WBC (Bld) 83.3 % High 47-70 [facility] Nucleated red blood cell per centageOrdered By: Nany Kebede on 05-24-2024 Nucleated RBC/100 WBC (Bld) [Ratio] 0.2 % 0-5 [facility] Platelet countOrdered By: Na fay Kebede on 05-24-2024 Platelets (Bld) [#/Vol] 309 10*3/uL 150-450 [facility] Potassium measurementOrdered By: Nany Kebede on 05-24-2024 Potassium [Moles/Vol] 4.1 mmol/L 3.5-5.1 [facility] RBC Auto (Bld) [#/Vol]Ordere d By: Nany Kebede on 05-24-2024 RBC (Bld) [#/Vol] 4.61 10*6/uL 4.2-5.4 [facility] Serum anion gap measurementO rdered By: Nany Kebede on 05-24-2024 Anion gap [Moles/Vol] 6 mmol/L 5-15 [facility] Serum or plasma calcium roxi urement (mass/volume)Ordered By: Nany Kebede on 05-24-2024 Calcium [Mass/Vol] 9.1 mg/dL 8.5-10.1 [facility] Serum or plasma creatinine m easurement (mass/volume)Ordered By: Nany Kebede on 05-24-2024 Creatinine [Mass/Vol] 0.88 mg/dL 0.55-1.02 [facility] Comment on above: The validity of the calculated GFR & GFRAA in patients over 70 years has not been determined. Clinical correlation is essential. Serum or plasma urea nitroge n measurement (mass/volume)Ordered By: Nany Kebede on 05-24-2024 Urea nitrogen [Mass/Vol] 19 mg/dL High 7-18 [facility] Sodium levelOrdered By: Nany Kebede on 05-24-2024 Sodium [Moles/Vol] 138 mmol/L 136-145 [facility] White blood cell (WBC) count Ordered By: Nany Kebede on 05-24-2024 WBC (Bld) [#/Vol] 10.9 10*3/uL 4.4-11.0 [facility] Basic Metabolic Profile (BMP )on 05-23-2024 BUN/CRE 17.8 RATIO Normal 10-20 [facility] Comment on above: Performed By: #### L 500.2500, L100.0100 ####[facility] [address] [place], [address] CA,Total 9.0 mg/dL Normal 8.5-10.1 [facility] Comment on above: Performed By: #### L 500.2500, L100.0100 ####[facility] [address] [place], [address] Chloride [Moles/Vol] 105 mmol/L Normal 98-107 [facility] Comment on above: Performed By: #### L 500.2500, L100.0100 ####[facility] [address] [place], [address] CO2 [Moles/Vol] 26.0 mmol/L Normal 21.0-32.0 [facility] Comment on above: Performed By: #### L 500.2500, L100.0100 ####[facility] [address] [place], [address] Creatinine [Mass/Vol] 0.90 mg/dL Normal 0.55-1.02 [facility] Comment on above: Result Comment: The validity of the calculated GFR GFRAA in patients over70 years has not been determined. Clinical correlation isessential. Performed By: #### L 500.2500, L100.0100 ####[facility] [address] [place], [address] ECRCL 95.02 ml/min Normal [facility] Comment on above: Performed By: #### L 500.2500, L100.0100 ####[facility] [address] [place], [address] EST GFR - AA 83 mL/min Normal >60 [facility] Comment on above: Result Comment: Afri can Citizen [place] GFR Calc Performed By: #### L 500.2500, L100.0100 ####[facility] [address] [place], [address] GAP 8 Normal 5-15 [facility] Comment on above: Performed By: #### L 500.2500, L100.0100 ####[facility] [address] [place], [address] GFR/1.73 sq M.predicted among non-blacks MDRD (S/P/Bld) [Vol rate/Area] 68 mL/min/{1.73_m2} Normal >60 [facility] Comment on above: Result Comment: Non- GFR Calc Performed By: #### L 500.2500, L100.0100 ####[facility] [address] [place], [address] Glucose [Mass/Vol] 132 mg/dL High 74-106 [facility] Comment on above: Result Comment: Fast ing Glucose result greater than or equal to 126 mg/dLsuggests DIABETES MELLITUS per A.D.A. criteria. Performed By: #### L 500.2500, L100.0100 ####[facility] [address] [place], [address] Potassium [Moles/Vol] 3.9 mmol/L Normal 3.5-5.1 [facility] Comment on above: Performed By: #### L 500.2500, L100.0100 ####[facility] [address] [place], [address] Sodium [Moles/Vol] 139 mmol/L Normal 136-145 [facility] Comment on above: Performed By: #### L 500.2500, L100.0100 ####[facility] [address] [place], [address] Urea nitrogen [Mass/Vol] 16 mg/dL Normal 7-18 [facility] Comment on above: Performed By: #### L 500.2500, L100.0100 ####[facility] [address] [place], [address] CBC W/Diff, Automatedon 02-0 -2024 Absolute Lymph 0.97 X10 3/uL Normal 0.83-4.51 [facility] Comment on above: Performed By: #### L 500.2500, L100.0100 ####[facility] [address] [place], [address] Absolute Neut 8.0 X10 3/uL High 2.0-7.7 [facility] Comment on above: Performed By: #### L 500.2500, L100.0100 ####[facility] [address] [place], [address] Basophils/100 WBC (Bld) 0.2 % Normal 0-1 [facility] Comment on above: Performed By: #### L 500.2500, L100.0100 ####[facility] [address] [place], [address] Eosinophils/100 WBC (Bld) 0.3 % Normal 0-5 [facility] Comment on above: Performed By: #### L 500.2500, L100.0100 ####[facility] [address] [place], [address] Erythrocyte distribution width (RBC) [Ratio] 17.1 % High 11.6-14.6 [facility] Comment on above: Performed By: #### L 500.2500, L100.0100 ####[facility] [address] [place], [address] Hematocrit (Bld) [Volume fraction] 42.0 % Normal 37-47 [facility] Comment on above: Performed By: #### L 500.2500, L100.0100 ####[facility] [address] [place], [address] Hemoglobin (Bld) [Mass/Vol] 12.6 g/dL Normal 12.0-15.0 [facility] Comment on above: Performed By: #### L 500.2500, L100.0100 ####[facility] [address] [place], [address] IG% 1.500 High 0.0-0.9 [facility] Comment on above: Result Comment: IG% - Immature Granulocytes (promyelocytes, myelocytes andmetamyelocytes) > 1% indicates that a LEFT SHIFT is Present. Performed By: #### L 500.2500, L100.0100 ####[facility] [address] [place], [address] Lymphocytes/100 WBC (Bld) 10.2 % Low 19-41 [facility] Comment on above: Performed By: #### L 500.2500, L100.0100 ####[facility] [address] [place], [address] MCH (RBC) [Entitic mass] 26.7 pg Low 27.0-32.0 [facility] Comment on above: Performed By: #### L 500.2500, L100.0100 ####[facility] [address] [place], [address] MCHC (RBC) [Mass/Vol] 30.0 g/dL Low 32-36 [facility] Comment on above: Performed By: #### L 500.2500, L100.0100 ####[facility] [address] [place], [address] MCV (RBC) [Entitic vol] 89.0 fL Normal 81-99 [facility] Comment on above: Performed By: #### L 500.2500, L100.0100 ####[facility] [address] [place], [address] Monocytes/100 WBC (Bld) 4.0 % Normal 0-10 [facility] Comment on above: Performed By: #### L 500.2500, L100.0100 ####[facility] [address] [place], [address] Neutrophils/100 WBC (Bld) 83.8 % High 47-70 [facility] Comment on above: Performed By: #### L 500.2500, L100.0100 ####[facility] [address] [place], [address] Nucleated RBC (Bld) [#/Vol] 0 10*3/uL Normal 0-5 [facility] Comment on above: Performed By: #### L 500.2500, L100.0100 ####[facility] [address] [place], [address] Platelet mean volume (Bld) [Entitic vol] 9.9 fL Normal 6.2-12.0 [facility] Comment on above: Performed By: #### L 500.2500, L100.0100 ####[facility] [address] [place], [address] Platelets (Bld) [#/Vol] 308 10*3/uL Normal 150-450 [facility] Comment on above: Performed By: #### L 500.2500, L100.0100 ####[facility] [address] [place], [address] RBC (Bld) [#/Vol] 4.72 10*6/uL Normal 4.2-5.4 [facility] Comment on above: Performed By: #### L 500.2500, L100.0100 ####[facility] [address] [place], [address] RDW SD 55.2 fl High 35.1-43.9 [facility] Comment on above: Performed By: #### L 500.2500, L100.0100 ####[facility] [address] [place], [address] WBC (Bld) [#/Vol] 9.5 10*3/uL Normal 4.4-11.0 [facility] Comment on above: Performed By: #### L 500.2500, L100.0100 ####[facility] [address] [place], [address] Atypical lymphocyte percenta geOrdered By: Nany Kebede on 05-22-2024 Atypical Lymphocytes 1+ % [facility] Basic Metabolic Profile (BMP )on 05-22-2024 BUN/CRE 19.7 RATIO Normal 10-20 [facility] Comment on above: Performed By: #### L 500.2500, L100.0100 ####[facility] [address] [place], [address] CA,Total 9.1 mg/dL Normal 8.5-10.1 [facility] Comment on above: Performed By: #### L 500.2500, L100.0100 ####[facility] [address] [place], [address] Chloride [Moles/Vol] 105 mmol/L Normal 98-107 [facility] Comment on above: Performed By: #### L 500.2500, L100.0100 ####[facility] [address] [place], [address] CO2 [Moles/Vol] 25.0 mmol/L Normal 21.0-32.0 [facility] Comment on above: Performed By: #### L 500.2500, L100.0100 ####[facility] [address] [place], [address] Creatinine [Mass/Vol] 0.97 mg/dL Normal 0.55-1.02 [facility] Comment on above: Result Comment: The validity of the calculated GFR GFRAA in patients over70 years has not been determined. Clinical correlation isessential. Performed By: #### L 500.2500, L100.0100 ####[facility] [address] [place], [address] ECRCL 88.16 ml/min Normal [facility] Comment on above: Performed By: #### L 500.2500, L100.0100 ####[facility] [address] [place], [address] EST GFR - AA 76 mL/min Normal >60 [facility] Comment on above: Result Comment: Afri can [place] GFR Calc Performed By: #### L 500.2500, L100.0100 ####[facility] [address] [place], [address] GAP 8 Normal 5-15 [facility] Comment on above: Performed By: #### L 500.2500, L100.0100 ####[facility] [address] [place], [address] GFR/1.73 sq M.predicted among non-blacks MDRD (S/P/Bld) [Vol rate/Area] 63 mL/min/{1.73_m2} Normal >60 [facility] Comment on above: Result Comment: Non- GFR Calc Performed By: #### L 500.2500, L100.0100 ####[facility] [address] [place], [address] Glucose [Mass/Vol] 132 mg/dL High 74-106 [facility] Comment on above: Result Comment: Fast ing Glucose result greater than or equal to 126 mg/dLsuggests DIABETES MELLITUS per A.D.A. criteria. Performed By: #### L 500.2500, L100.0100 ####[facility] [address] [place], [address] Potassium [Moles/Vol] 3.9 mmol/L Normal 3.5-5.1 [facility] Comment on above: Performed By: #### L 500.2500, L100.0100 ####[facility] [address] [place], [address] Sodium [Moles/Vol] 139 mmol/L Normal 136-145 [facility] Comment on above: Performed By: #### L 500.2500, L100.0100 ####[facility] [address] [place], [address] Urea nitrogen [Mass/Vol] 19 mg/dL High 7-18 [facility] Comment on above: Performed By: #### L 500.2500, L100.0100 ####[facility] [address] [place], [address] CBC W/Diff, Automatedon 02-0 3-2025 ATYPICAL LYMPH 1+ Normal [facility] Comment on above: Performed By: #### L 500.2500, L100.0100 ####[facility] [address] [place], [address] Phosphoruson 05-22-2024 Phosphate [Mass/Vol] 3.0 mg/dL Normal 2.5-4.9 [facility] Comment on above: Performed By: #### L 501.2300 ####[facility] [address] [place], [address] Phosphorus measurementOrdere d By: Zelalem Ramires on 05-22-2024 Phosphorus Level 3.0 mg/dL 2.5-4.9 [facility] Basic Metabolic Profile (BMP )on 05-20-2024 BUN/CRE 15.7 RATIO Normal 10-20 [facility] Comment on above: Performed By: #### L 100.0500, L500.2500 ####[facility] [address] [place], [address] CA,Total 8.5 mg/dL Normal 8.5-10.1 [facility] Comment on above: Performed By: #### L 100.0500, L500.2500 ####[facility] [address] [place], [address] Chloride [Moles/Vol] 103 mmol/L Normal 98-107 [facility] Comment on above: Performed By: #### L 100.0500, L500.2500 ####[facility] [address] [place], [address] CO2 [Moles/Vol] 27.0 mmol/L Normal 21.0-32.0 [facility] Comment on above: Performed By: #### L 100.0500, L500.2500 ####[facility] [address] [place], [address] Creatinine [Mass/Vol] 1.08 mg/dL High 0.55-1.02 [facility] Comment on above: Result Comment: The validity of the calculated GFR GFRAA in patients over70 years has not been determined. Clinical correlation isessential. Performed By: #### L 100.0500, L500.2500 ####[facility] [address] [place], [address] ECRCL 79.18 ml/min Normal [facility] Comment on above: Performed By: #### L 100.0500, L500.2500 ####[facility] [address] [place], [address] EST GFR - AA 67 mL/min Normal >60 [facility] Comment on above: Result Comment: Afri can [place] GFR Calc Performed By: #### L 100.0500, L500.2500 ####[facility] [address] [place], [address] GAP 7 Normal 5-15 [facility] Comment on above: Performed By: #### L 100.0500, L500.2500 ####[facility] [address] [place], [address] GFR/1.73 sq M.predicted among non-blacks MDRD (S/P/Bld) [Vol rate/Area] 55 mL/min/{1.73_m2} Low >60 [facility] Comment on above: Result Comment: Non- GFR Calc Performed By: #### L 100.0500, L500.2500 ####[facility] [address] [place], [address] Glucose [Mass/Vol] 153 mg/dL High 74-106 [facility] Comment on above: Result Comment: Fast ing Glucose result greater than or equal to 126 mg/dLsuggests DIABETES MELLITUS per A.D.A. criteria. Performed By: #### L 100.0500, L500.2500 ####[facility] [address] [place], [address] Potassium [Moles/Vol] 3.9 mmol/L Normal 3.5-5.1 [facility] Comment on above: Performed By: #### L 100.0500, L500.2500 ####[facility] [address] [place], [address] Sodium [Moles/Vol] 136 mmol/L Normal 136-145 [facility] Comment on above: Performed By: #### L 100.0500, L500.2500 ####[facility] [address] [place], [address] Urea nitrogen [Mass/Vol] 17 mg/dL Normal 7-18 [facility] Comment on above: Performed By: #### L 100.0500, L500.2500 ####[facility] [address] [place], [address] CBC-Complete Blood Cnt No Di ffon 05-20-2024 Erythrocyte distribution width (RBC) [Ratio] 17.6 % High 11.6-14.6 [facility] Comment on above: Performed By: #### L 100.0500, L500.2500 ####[facility] [address] [place], [address] Hematocrit (Bld) [Volume fraction] 38.4 % Normal 37-47 [facility] Comment on above: Performed By: #### L 100.0500, L500.2500 ####[facility] [address] [place], [address] Hemoglobin (Bld) [Mass/Vol] 12.1 g/dL Normal 12.0-15.0 [facility] Comment on above: Performed By: #### L 100.0500, L500.2500 ####[facility] [address] [place], [address] MCH (RBC) [Entitic mass] 27.8 pg Normal 27.0-32.0 [facility] Comment on above: Performed By: #### L 100.0500, L500.2500 ####[facility] [address] [place], [address] MCHC (RBC) [Mass/Vol] 31.5 g/dL Low 32-36 [facility] Comment on above: Performed By: #### L 100.0500, L500.2500 ####[facility] [address] [place], [address] MCV (RBC) [Entitic vol] 88.3 fL Normal 81-99 [facility] Comment on above: Performed By: #### L 100.0500, L500.2500 ####[facility] [address] [place], [address] Platelet mean volume (Bld) [Entitic vol] 10.0 fL Normal 6.2-12.0 [facility] Comment on above: Performed By: #### L 100.0500, L500.2500 ####[facility] [address] [place], [address] Platelets (Bld) [#/Vol] 254 10*3/uL Normal 150-450 [facility] Comment on above: Performed By: #### L 100.0500, L500.2500 ####[facility] [address] [place], [address] RBC (Bld) [#/Vol] 4.35 10*6/uL Normal 4.2-5.4 [facility] Comment on above: Performed By: #### L 100.0500, L500.2500 ####[facility] [address] [place], [address] RDW SD 56.5 fl High 35.1-43.9 [facility] Comment on above: Performed By: #### L 100.0500, L500.2500 ####[facility] [address] [place], [address] WBC (Bld) [#/Vol] 3.3 10*3/uL Low 4.4-11.0 [facility] Comment on above: Performed By: #### L 100.0500, L500.2500 ####[facility] [address] [place], [address] 12 Lead EKGon 05-19-2024 12 Lead EKG Normal [facility] Basic Metabolic Profile (BMP )on 05-19-2024 BUN/CRE 13.6 RATIO Normal 10-20 [facility] Comment on above: Performed By: #### L 100.0100, L500.2500, L300.8000 ####[facility] [address] [place], [address] CA,Total 8.7 mg/dL Normal 8.5-10.1 [facility] Comment on above: Performed By: #### L 100.0100, L500.2500, L300.8000 ####[facility] [address] [place], [address] Chloride [Moles/Vol] 100 mmol/L Normal 98-107 [facility] Comment on above: Performed By: #### L 100.0100, L500.2500, L300.8000 ####[facility] [address] [place], [address] CO2 [Moles/Vol] 28.0 mmol/L Normal 21.0-32.0 [facility] Comment on above: Performed By: #### L 100.0100, L500.2500, L300.8000 ####[facility] [address] [place], [address] Creatinine [Mass/Vol] 1.25 mg/dL High 0.55-1.02 [facility] Comment on above: Result Comment: The validity of the calculated GFR GFRAA in patients over70 years has not been determined. Clinical correlation isessential. Performed By: #### L 100.0100, L500.2500, L300.8000 ####[facility] [address] [place], [address] ECRCL 46.62 ml/min Normal [facility] Comment on above: Performed By: #### L 100.0100, L500.2500, L300.8000 ####[facility] [address] [place], [address] EST GFR - AA 57 mL/min Low >60 [facility] Comment on above: Result Comment: Afri can Citizen [place] GFR Calc Performed By: #### L 100.0100, L500.2500, L300.8000 ####[facility] [address] [place], [address] GAP 9 Normal 5-15 [facility] Comment on above: Performed By: #### L 100.0100, L500.2500, L300.8000 ####[facility] [address] [place], [address] GFR/1.73 sq M.predicted among non-blacks MDRD (S/P/Bld) [Vol rate/Area] 47 mL/min/{1.73_m2} Low >60 [facility] Comment on above: Result Comment: Non- GFR Calc Performed By: #### L 100.0100, L500.2500, L300.8000 ####[facility] [address] [place], [address] Glucose [Mass/Vol] 113 mg/dL High 74-106 [facility] Comment on above: Result Comment: Fast ing Glucose result from 100 to 125 mg/dLsuggests IMPAIRED HOMEOSTASIS per A.D.A. criteria. Performed By: #### L 100.0100, L500.2500, L300.8000 ####[facility] [address] [place], [address] Potassium [Moles/Vol] 3.2 mmol/L Low 3.5-5.1 [facility] Comment on above: Performed By: #### L 100.0100, L500.2500, L300.8000 ####[facility] [address] [place], [address] Sodium [Moles/Vol] 137 mmol/L Normal 136-145 [facility] Comment on above: Performed By: #### L 100.0100, L500.2500, L300.8000 ####[facility] [address] [place], [address] Urea nitrogen [Mass/Vol] 17 mg/dL Normal 7-18 [facility] Comment on above: Performed By: #### L 100.0100, L500.2500, L300.8000 ####[facility] [address] [place], [address] CBC W/Diff, Automatedon - Absolute Lymph 0.93 X10 3/uL Normal 0.83-4.51 [facility] Comment on above: Performed By: #### L 100.0100, L500.2500, L300.8000 ####[facility] [address] [place], [address] Absolute Neut 3.3 X10 3/uL Normal 2.0-7.7 [facility] Comment on above: Performed By: #### L 100.0100, L500.2500, L300.8000 ####[facility] [address] [place], [address] Basophils/100 WBC (Bld) 0.4 % Normal 0-1 [facility] Comment on above: Performed By: #### L 100.0100, L500.2500, L300.8000 ####[facility] [address] [place], [address] Eosinophils/100 WBC (Bld) 0.2 % Normal 0-5 [facility] Comment on above: Performed By: #### L 100.0100, L500.2500, L300.8000 ####[facility] [address] [place], [address] Erythrocyte distribution width (RBC) [Ratio] 17.6 % High 11.6-14.6 [facility] Comment on above: Performed By: #### L 100.0100, L500.2500, L300.8000 ####[facility] [address] [place], [address] Hematocrit (Bld) [Volume fraction] 41.2 % Normal 37-47 [facility] Comment on above: Performed By: #### L 100.0100, L500.2500, L300.8000 ####[facility] [address] [place], [address] Hemoglobin (Bld) [Mass/Vol] 12.9 g/dL Normal 12.0-15.0 [facility] Comment on above: Performed By: #### L 100.0100, L500.2500, L300.8000 ####[facility] [address] [place], [address] IG% 0.800 Normal 0.0-0.9 [facility] Comment on above: Result Comment: IG% - Immature Granulocytes (promyelocytes, myelocytes andmetamyelocytes) > 1% indicates that a LEFT SHIFT is Present. Performed By: #### L 100.0100, L500.2500, L300.8000 ####[facility] [address] [place], [address] Lymphocytes/100 WBC (Bld) 19.4 % Normal 19-41 [facility] Comment on above: Performed By: #### L 100.0100, L500.2500, L300.8000 ####[facility] [address] [place], [address] MCH (RBC) [Entitic mass] 27.6 pg Normal 27.0-32.0 [facility] Comment on above: Performed By: #### L 100.0100, L500.2500, L300.8000 ####[facility] [address] [place], [address] MCHC (RBC) [Mass/Vol] 31.3 g/dL Low 32-36 [facility] Comment on above: Performed By: #### L 100.0100, L500.2500, L300.8000 ####[facility] [address] [place], [address] MCV (RBC) [Entitic vol] 88.0 fL Normal 81-99 [facility] Comment on above: Performed By: #### L 100.0100, L500.2500, L300.8000 ####[facility] [address] [place], [address] Monocytes/100 WBC (Bld) 11.3 % High 0-10 [facility] Comment on above: Performed By: #### L 100.0100, L500.2500, L300.8000 ####[facility] [address] [place], [address] Neutrophils/100 WBC (Bld) 67.9 % Normal 47-70 [facility] Comment on above: Performed By: #### L 100.0100, L500.2500, L300.8000 ####[facility] [address] [place], [address] Nucleated RBC (Bld) [#/Vol] 0 10*3/uL Normal 0-5 [facility] Comment on above: Performed By: #### L 100.0100, L500.2500, L300.8000 ####[facility] [address] [place], [address] Platelet mean volume (Bld) [Entitic vol] 9.9 fL Normal 6.2-12.0 [facility] Comment on above: Performed By: #### L 100.0100, L500.2500, L300.8000 ####[facility] [address] [place], [address] Platelets (Bld) [#/Vol] 316 10*3/uL Normal 150-450 [facility] Comment on above: Performed By: #### L 100.0100, L500.2500, L300.8000 ####[facility] [address] [place], [address] RBC (Bld) [#/Vol] 4.68 10*6/uL Normal 4.2-5.4 [facility] Comment on above: Performed By: #### L 100.0100, L500.2500, L300.8000 ####[facility] [address] [place], [address] RDW SD 56.1 fl High 35.1-43.9 [facility] Comment on above: Performed By: #### L 100.0100, L500.2500, L300.8000 ####[facility] [address] [place], [address] WBC (Bld) [#/Vol] 4.8 10*3/uL Normal 4.4-11.0 [facility] Comment on above: Performed By: #### L 100.0100, L500.2500, L300.8000 ####[facility] [address] [place], [address] CTA Chest W/WO Contraston CTA Chest W/WO Contrast Normal [facility] Chest PA and Lateralon 05-19 Chest PA and Lateral Normal [facility] D-Dimer Quantitative (DVT/PE )on 05-19-2024 D-DIMER QUANT 0.68 FEU/ug/m Invalid Interpretation Code 0.27-0.49 [facility] Comment on above: Result Comment: D-Di araceli ELEVATED (>0.49): Additional studies and clinicalassessments are indicated to conclude diagnosis of:Deep Vein Thrombosis (DVT) or Pulmonary Embolism (PE)RESULTS CALLED TO DAVID 05/19/24 170Mendoza Joana Quinonez.REPORT READ BACK BY . SAME Performed By: #### L 100.0100, L500.2500, L300.8000 ####[facility] [address] [place], [address] D-dimer measurement for deep venous thrombosisOrdered By: Saad Price on 05-19-2024 D-Dimer Quantitative (PE/DVT) 0.68 FEU/ug/m High 0.27-0.49 [facility] Comment on above: D-Dimer ELEVATED (>0 .49): Additional studies and clinicalassessments are indicated to conclude diagnosis of:Deep Vein Thrombosis (DVT) or Pulmonary Embolism (PE)RESULTS CALLED TO DAVID 05/19/24 Helga Joana Cristiano.REPORT READ BACK BY . CHRISTI Emergency Department Summary on 05-19-2024 Emergency Department Summary Normal [facility] H AND P Exam - Hospitaliston 05-19-2024 H&P Exam - Hospitalist Normal [facility] Influenza virus A and B and SARS-CoV-2 (COVID-19) and Respiratory syncytial virus RNAOrdered By: Saad Price on 05-19-2024 SARS-CoV-2 (COVID-19) RNA DEB+probe Ql (Unsp spec) Influenzae A Abnormal [facility] M100.678on 05-19-2024 M100.678 Normal [facility] Comment on above: Performed By: #### M 100.678 ####[facility] [address] [place], [address] Magnesiumon 05-19-2024 Magnesium [Mass/Vol] 2.4 mg/dL Normal 1.6-2.6 [facility] Comment on above: Performed By: #### L 501.2300, L501.5200 ####[facility] [address] [place], [address] Magnesium measurementOrdered By: Oli Marcelino on 05-19-2024 Magnesium [Mass/Vol] 2.4 mg/dL 1.6-2.6 [facility] Phosphoruson 05-19-2024 Phosphate [Mass/Vol] 2.4 mg/dL Low 2.5-4.9 [facility] Comment on above: Performed By: #### L 501.2300, L501.5200 ####[facility] [address] [place], [place], [id number] Chest PA and Lateralon 05-16 Chest PA and Lateral Normal [facility] Albumin to globulin ratioOrd ered By: Nicky Covarrubias on 04-27-2024 Albumin/Globulin [Mass ratio] 0.7 {ratio} Low 0.9-2.4 [facility] Bilirubin, totalOrdered By: Nicky Covarrubias on 04-27-2024 Bilirubin [Mass/Vol] 0.50 mg/dL 0.20-1.00 [facility] Comment on above: For patients on eltr ombopag therapy, use of Dimension [place] TBIL is not recommended. Blood urea nitrogen (BUN)/cr eatinine ratioOrdered By: Nicky Covarrubias on 04-27-2024 Urea nitrogen/Creatinine [Mass ratio] 10.3 mg/mg 10-20 [facility] Carbon dioxide measurementOr dered By: Nicky Covarrubias on 04-27-2024 CO2 [Moles/Vol] 30.0 mmol/L 21.0-32.0 [facility] Chloride measurementOrdered By: Nicky Covarrubias on 04-27-2024 Chloride [Moles/Vol] 104 mmol/L 98-107 [facility] Comprehensive Metabolic Prof ilon 04-27-2024 Albumin [Mass/Vol] 3.4 g/dL Normal 3.2-5.0 [facility] Comment on above: Performed By: #### L 500.4100, L500.4050 ####[facility] [address] [place], [address] Albumin/Globulin [Mass ratio] 0.7 {ratio} Low 0.9-2.4 [facility] Comment on above: Performed By: #### L 500.4100, L500.4050 ####[facility] [address] [place], [address] ALK P 97 U/L Normal 45-117 [facility] Comment on above: Performed By: #### L 500.4100, L500.4050 ####[facility] [address] [place], [address] ALT [Catalytic activity/Vol] 30 U/L Normal 13-56 [facility] Comment on above: Performed By: #### L 500.4100, L500.4050 ####[facility] [address] [place], [address] AST [Catalytic activity/Vol] 25 U/L Normal 15-37 [facility] Comment on above: Performed By: #### L 500.4100, L500.4050 ####[facility] [address] [place], [address] Bilirubin [Mass/Vol] 0.50 mg/dL Normal 0.20-1.00 [facility] Comment on above: Result Comment: For patients on eltrombopag therapy, use of Dimension [place] TBIL is not recommended. Performed By: #### L 500.4100, L500.4050 ####[facility] [address] [place], [address] BUN/CRE 10.3 RATIO Normal 10-20 [facility] Comment on above: Performed By: #### L 500.4100, L500.4050 ####[facility] [address] [place], [address] CA,Total 9.6 mg/dL Normal 8.5-10.1 [facility] Comment on above: Performed By: #### L 500.4100, L500.4050 ####[facility] [address] [place], [address] Chloride [Moles/Vol] 104 mmol/L Normal 98-107 [facility] Comment on above: Performed By: #### L 500.4100, L500.4050 ####[facility] [address] [place], [address] CO2 [Moles/Vol] 30.0 mmol/L Normal 21.0-32.0 [facility] Comment on above: Performed By: #### L 500.4100, L500.4050 ####[facility] [address] [place], [address] Creatinine [Mass/Vol] 0.97 mg/dL Normal 0.55-1.02 [facility] Comment on above: Result Comment: The validity of the calculated GFR GFRAA in patients over70 years has not been determined. Clinical correlation isessential. Performed By: #### L 500.4100, L500.4050 ####[facility] [address] [place], [address] EST GFR - AA 76 mL/min Normal >60 [facility] Comment on above: Result Comment: Afri can Citizen [place] GFR Calc Performed By: #### L 500.4100, L500.4050 ####[facility] [address] [place], [address] GAP 4 Low 5-15 [facility] Comment on above: Performed By: #### L 500.4100, L500.4050 ####[facility] [address] [place], [address] GFR/1.73 sq M.predicted among non-blacks MDRD (S/P/Bld) [Vol rate/Area] 63 mL/min/{1.73_m2} Normal >60 [facility] Comment on above: Result Comment: Non- GFR Calc Performed By: #### L 500.4100, L500.4050 ####[facility] [address] [place], [address] Globulin (S) [Mass/Vol] 5.1 g/dL High 2.2-4.2 [facility] Comment on above: Performed By: #### L 500.4100, L500.4050 ####[facility] [address] [place], [address] Glucose [Mass/Vol] 95 mg/dL Normal 74-106 [facility] Comment on above: Performed By: #### L 500.4100, L500.4050 ####[facility] [address] [place], [address] Potassium [Moles/Vol] 3.9 mmol/L Normal 3.5-5.1 [facility] Comment on above: Performed By: #### L 500.4100, L500.4050 ####[facility] [address] [place], [address] Sodium [Moles/Vol] 138 mmol/L Normal 136-145 [facility] Comment on above: Performed By: #### L 500.4100, L500.4050 ####[facility] [address] [place], [address] T PROT 8.5 g/dL High 6.4-8.2 [facility] Comment on above: Performed By: #### L 500.4100, L500.4050 ####[facility] [address] [place], [address] Urea nitrogen [Mass/Vol] 10 mg/dL Normal 7-18 [facility] Comment on above: Performed By: #### L 500.4100, L500.4050 ####[facility] [address] [place], [address] Estimated glomerular filtrat ion rate (GFR) AmericanOrdered By: Nicky Covarrubias on 04-27-2024 Estimated GFR (MDRD) Amer 76 mL/min >60 [facility] Comment on above: GFR Calc Glomerular filtration rate ( GFR) estimationOrdered By: Nicky Covarrubias on 04-27-2024 Estimated GFR (MDRD) Non-Af Amer 63 mL/min >60 [facility] Comment on above: Non- GFR Calc Glucose measurementOrdered B y: Nicky Covarrubias on 04-27-2024 Glucose [Mass/Vol] 95 mg/dL 74-106 [facility] High density lipoprotein (HD L) measurementOrdered By: Nicky Covarrubias on 04-27-2024 Cholesterol in HDL [Mass/Vol] 67 mg/dL >40 [facility] Comment on above: The drugs N-Acetylcy steine and Metamizole may falsely depress this assay. Reference Range HDL <40 mg/dL Low HDL Cholesterol HDL >or= 60 mg/dL High HDL Cholesterol Internal Medicine Office Vis iton 04-27-2024 Internal Medicine Office Visit Normal [facility] Laboratory - Chemistry and C hemistry - challengeOrdered By: Nicky Covarrubias on 04-27-2024 AST [Catalytic activity/Vol] 25 U/L 15-37 [facility] Lipid Profileon 04-27-2024 Cholesterol [Mass/Vol] 179 mg/dL Normal 200 [facility] Comment on above: Result Comment: <200 mg/dL Desirable 200-240 mg/dL Borderline >240 mg/dL High Risk Performed By: #### L 500.4100, L500.4050 ####[facility] [address] [place], [address] Cholesterol in HDL [Mass/Vol] 67 mg/dL Normal [facility] Comment on above: Result Comment: The drugs N-Acetylcysteine and Metamizole may falselydepress this assay. Reference Range HDL <40 mg/dL Low HDL Cholesterol HDL >or= 60 mg/dL High HDL Cholesterol Performed By: #### L 500.4100, L500.4050 ####[facility] [address] [place], [address] Cholesterol in LDL [Mass/Vol] 95 mg/dL Normal 0-130 [facility] Comment on above: Performed By: #### L 500.4100, L500.4050 ####[facility] [address] [place], [address] Cholesterol in VLDL [Mass/Vol] 17 mg/dL Normal 5-40 [facility] Comment on above: Performed By: #### L 500.4100, L500.4050 ####[facility] [address] [place], [address] Triglyceride [Mass/Vol] 86 mg/dL Normal [facility] Comment on above: Result Comment: The drugs N-Acetylcysteine and Metamizole may falselydepress this assay.Serum Triglycerides Reference Interval Normal <150 mg/dL Borderline high 150 - 199 mg/dL High 200 - 499 mg/dL Very High > or = 500 mg/dL Performed By: #### L 500.4100, L500.4050 ####[facility] [address] [place], [address] Low density lipoprotein (LDL ) cholesterol measurementOrdered By: Nicky Covarrubias on 04-27-2024 Cholesterol in LDL [Mass/Vol] 95 mg/dL 0-130 [facility] Potassium measurementOrdered By: Nicky Covarrubias on 04-27-2024 Potassium [Moles/Vol] 3.9 mmol/L 3.5-5.1 [facility] Serum anion gap measurementO rdered By: Nicky Covarrubias on 04-27-2024 Anion gap [Moles/Vol] 4 mmol/L Low 5-15 [facility] Serum globulin measurementOr dered By: Nicky Covarrubias on 04-27-2024 Globulin (S) [Mass/Vol] 5.1 g/dL High 2.2-4.2 [facility] Serum or plasma alanine sotomayor otransferase (ALT) measurementOrdered By: Nicky Covarrubias on 04-27-2024 ALT [Catalytic activity/Vol] 30 U/L 13-56 [facility] Serum or plasma albumin roxi urement (mass/volume)Ordered By: Nicky Covarrubias on 04-27-2024 Albumin [Mass/Vol] 3.4 g/dL 3.2-5.0 [facility] Serum or plasma alkaline amanda sphatase measurementOrdered By: Nicky Covarrubias on 04-27-2024 ALP [Catalytic activity/Vol] 97 U/L 45-117 [facility] Serum or plasma calcium roxi urement (mass/volume)Ordered By: Nicky Covarrubias on 04-27-2024 Calcium [Mass/Vol] 9.6 mg/dL 8.5-10.1 [facility] Serum or plasma cholesterol measurement (mass/volume)Ordered By: Nicky Covarrubias on 04-27-2024 Cholesterol [Mass/Vol] 179 mg/dL <200 [facility] Comment on above: <200 mg/dL Desirable 200-240 mg/dL Borderline >240 mg/dL High Risk Serum or plasma creatinine m easurement (mass/volume)Ordered By: Nicky Covarrubias on 04-27-2024 Creatinine [Mass/Vol] 0.97 mg/dL 0.55-1.02 [facility] Comment on above: The validity of the calculated GFR & GFRAA in patients over 70 years has not been determined. Clinical correlation is essential. Serum or plasma urea nitroge n measurement (mass/volume)Ordered By: Nicky Covarrubias on 04-27-2024 Urea nitrogen [Mass/Vol] 10 mg/dL 7-18 [facility] Sodium levelOrdered By: Olu Covarrubias on 04-27-2024 Sodium [Moles/Vol] 138 mmol/L 136-145 [facility] Total proteinOrdered By: Marvin Covarrubias on 04-27-2024 Protein [Mass/Vol] 8.5 g/dL High 6.4-8.2 [facility] Triglycerides measurementOrd ered By: Nicky Covarrubias on 04-27-2024 Triglyceride [Mass/Vol] 86 mg/dL <199 [facility] Comment on above: The drugs N-Acetylcy steine and Metamizole may falsely depress this assay.Serum Triglycerides Reference Interval Normal <150 mg/dL Borderline high 150 - 199 mg/dL High 200 - 499 mg/dL Very High > or = 500 mg/dL Very low density lipoprotein (VLDL) cholesterol measurementOrdered By: Nicky Covarrubias on 04-27-2024 VLDL Cholesterol 17 mg/dL 5-40 [facility] Basophil percentageOrdered B y: Nicky Covarrubias on 03-31-2023 Cholesterol [Mass/Vol] 197 mg/dL <200 [facility] Comment on above: <200 mg/dL Desirable 200-240 mg/dL Borderline >240 mg/dL High Risk Triglyceride [Mass/Vol] 111 mg/dL <199 [facility] Comment on above: The drugs N-Acetylcy steine and Metamizole may falsely depress this assay.Serum Triglycerides Reference Interval Normal <150 mg/dL Borderline high 150 - 199 mg/dL High 200 - 499 mg/dL Very High > or = 500 mg/dL Serum or plasma cholesterol in HDL measurement (mass/volume)Ordered By: Nicky Covarrubias on 03-31-2023 Cholesterol in HDL [Mass/Vol] 65 mg/dL >40 [facility] Comment on above: The drugs N-Acetylcy steine and Metamizole may falsely depress this assay. Reference Range HDL <40 mg/dL Low HDL Cholesterol HDL >or= 60 mg/dL High HDL Cholesterol Serum or plasma cholesterol in VLDL measurement (mass/volume)Ordered By: Nicky Covarrubias on 03-31-2023 Cholesterol in VLDL [Mass/Vol] 22 mg/dL -40 [facility] Serum or plasma low density lipoprotein (LDL) cholesterol measurement (mass/volume)Ordered By: Nicyk Covarrubias on 03-31-2023 Cholesterol in LDL [Mass/Vol] 110 mg/dL 0-130 [facility] Absolute lymphocyte countOrd ered By: Dr. Covarrubias on 06-17-2022 Lymphocytes Auto (Unsp spec) [#/Vol] 2.08 10*3/uL 0.83-4.51 [facility] Basophil percentageOrdered B y: Dr. oCvarrubias on 06-17-2022 Basophils/100 WBC (Bld) 0.5 % 0-1 [facility] Bilirubin [Mass/Vol] 0.60 mg/dL 0.20-1.00 [facility] Comment on above: For patients on eltr ombopag therapy, use of Dimension [place] TBIL is not recommended. Chloride [Moles/Vol] 105 mmol/L 98-107 [facility] Eosinophils/100 WBC (Bld) 2.3 % 0-5 [facility] Glucose [Mass/Vol] 94 mg/dL 74-106 [facility] Neutrophils (Bld) [#/Vol] 3.1 10*3/uL 2.0-7.7 [facility] Neutrophils/100 WBC (Bld) 54.6 % 47-70 [facility] [facility] Potassium [Moles/Vol] 4.2 mmol/L 3.5-5.1 [facility] Protein [Mass/Vol] 8.1 g/dL 6.4-8.2 [facility] Sodium [Moles/Vol] 139 mmol/L 136-145 [facility] WBC (Bld) [#/Vol] 5.7 10*3/uL 4.4-11.0 [facility] Blood erythrocytes count (nu mber/volume)Ordered By: Dr. Covarrubias on 06-17-2022 RBC (Bld) [#/Vol] 4.70 10*6/uL 4.2-5.4 [facility] Blood hemoglobin measurement (mass/volume)Ordered By: Dr. Covarrubias on 06-17-2022 Hemoglobin (Bld) [Mass/Vol] 13.0 g/dL 12.0-15.0 [facility] Blood lymphocytes/100 leukoc ytesOrdered By: Dr. Covarrubias on 06-17-2022 Lymphocytes/100 WBC (Bld) 36.3 % 19-41 [facility] Blood monocytes/100 leukocyt esOrdered By: Dr. Covarrubias on 06-17-2022 Monocytes/100 WBC (Bld) 6.1 % 0-10 [facility] Blood platelet mean volumeOr dered By: Dr. Covarrubias on 06-17-2022 Platelet mean volume (Bld) [Entitic vol] 8.9 fL 6.2-12.0 [facility] Determination of erythrocyte mean corpuscular volume (MCV)Ordered By: Dr. Covarrubias on 06-17-2022 MCV (RBC) [Entitic vol] 90.4 fL 81-99 [facility] Hematocrit Auto (Bld) [Volum e fraction]Ordered By: Dr. Covarrubias on 06-17-2022 Hematocrit (Bld) [Volume fraction] 42.5 % 37-47 [facility] Laboratory - Chemistry and C hemistry - challengeOrdered By: Dr. Covarrubias on 06-17-2022 ALP [Catalytic activity/Vol] 86 U/L 45-117 [facility] ALT [Catalytic activity/Vol] 33 U/L 13-56 [facility] CO2 [Moles/Vol] 28.0 mmol/L 21.0-32.0 [facility] Globulin (S) [Mass/Vol] 4.6 g/dL 2.2-4.2 [facility] Urea nitrogen/Creatinine [Mass ratio] 12.4 mg/mg 10-20 [facility] Laboratory - Hematology and Cell countsOrdered By: Dr. Covarrubias on 06-17-2022 Erythrocyte distribution width (RBC) [Entitic vol] 56.8 fL 35.1-43.9 [facility] Erythrocyte distribution width (RBC) [Ratio] 17.2 % 11.6-14.6 [facility] Immature granulocytes/100 WBC (Bld) 0.200 % 0.0-0.9 [facility] Comment on above: IG% - Immature Granu locytes (promyelocytes, myelocytes and metamyelocytes) > 1% indicates that a LEFT SHIFT is Present. MCH (RBC) [Entitic mass] 27.7 pg 27.0-32.0 [facility] Nucleated RBC/100 WBC (Bld) [Ratio] 0 % 0-5 [facility] MCHC Auto (RBC) [Mass/Vol]Or dered By: Dr. Covarrubias on 06-17-2022 MCHC (RBC) [Mass/Vol] 30.6 g/dL 32-36 [facility] No Panel InformationOrdered By: Dr. Covarrubias on 06-17-2022 Estimated GFR (MDRD) Amer 76 mL/min >60 [facility] Comment on above: GFR Calc Estimated GFR (MDRD) Non-Af Amer 63 mL/min >60 [facility] Comment on above: Non- GFR Calc Platelets bldOrdered By: Dr. Covarrubias on 03-01-2023 Platelets (Bld) [#/Vol] 330 10*3/uL 150-450 [facility] Serum or plasma albumin roxi urement (mass/volume)Ordered By: Dr. Covarrubias on 06-17-2022 Albumin [Mass/Vol] 3.5 g/dL 3.2-5.0 [facility] Serum or plasma albumin/glob ulin mass ratioOrdered By: Dr. Covarrubias on 06-17-2022 Albumin/Globulin [Mass ratio] 0.8 {ratio} 0.9-2.4 [facility] Serum or plasma calcium roxi urement (mass/volume)Ordered By: Dr. Covarrubias on 06-17-2022 Calcium [Mass/Vol] 9.7 mg/dL 8.5-10.1 [facility] Serum or plasma creatinine m easurement (mass/volume)Ordered By: Dr. Covarrubias on 06-17-2022 Creatinine [Mass/Vol] 0.97 mg/dL 0.55-1.02 [facility] Comment on above: The validity of the calculated GFR & GFRAA in patients over 70 years has not been determined. Clinical correlation is essential. Serum or plasma urea nitroge n measurement (mass/volume)Ordered By: Dr. Covarrubias on 06-17-2022 Urea nitrogen [Mass/Vol] 12 mg/dL 7-18 [facility] Thin prep Papanicolaou smear with manual screeningOrdered By: Dr. Covarrubias on 06-17-2022 Thin prep Papanicolaou smear with manual screening 37 U/L 15-37 [facility] Thin prep Papanicolaou smear with manual screening 6 5-15 [facility] Absolute lymphocyte countOrd ered By: Dr. Covarrubias on 03-23-2022 Lymphocytes Auto (Unsp spec) [#/Vol] 1.70 10*3/uL 0.83-4.51 [facility] Basophil percentageOrdered B y: Dr. Covarrubias on 03-23-2022 Basophils/100 WBC (Bld) 0.5 % 0-1 [facility] Bilirubin [Mass/Vol] 0.40 mg/dL 0.20-1.00 [facility] Comment on above: For patients on eltr ombopag therapy, use of Dimension [place] TBIL is not recommended. Chloride [Moles/Vol] 105 mmol/L 98-107 [facility] Eosinophils/100 WBC (Bld) 2.9 % 0-5 [facility] Glucose [Mass/Vol] 101 mg/dL 74-106 [facility] Comment on above: Fasting Glucose resu lt from 100 to 125 mg/dL suggests IMPAIRED HOMEOSTASIS per A.D.A. criteria. Neutrophils (Bld) [#/Vol] 3.7 10*3/uL 2.0-7.7 [facility] Neutrophils/100 WBC (Bld) 60.8 % 47-70 [facility] Potassium [Moles/Vol] 4.0 mmol/L 3.5-5.1 [facility] Protein [Mass/Vol] 8.2 g/dL 6.4-8.2 [facility] Sodium [Moles/Vol] 137 mmol/L 136-145 [facility] WBC (Bld) [#/Vol] 6.1 10*3/uL 4.4-11.0 [facility] Blood erythrocytes count (nu mber/volume)Ordered By: Dr. Covarrubias on 03-23-2022 RBC (Bld) [#/Vol] 5.04 10*6/uL 4.2-5.4 [facility] Blood hemoglobin measurement (mass/volume)Ordered By: Dr. Covarrubias on 03-23-2022 Hemoglobin (Bld) [Mass/Vol] 13.6 g/dL 12.0-15.0 [facility] Blood lymphocytes/100 leukoc ytesOrdered By: Dr. Covarrubias on 03-23-2022 Lymphocytes/100 WBC (Bld) 27.8 % 19-41 [facility] Blood monocytes/100 leukocyt esOrdered By: Dr. Covarrubias on 03-23-2022 Monocytes/100 WBC (Bld) 7.7 % 0-10 [facility] Blood platelet mean volumeOr dered By: Dr. Covarrubias on 03-23-2022 Platelet mean volume (Bld) [Entitic vol] 9.3 fL 6.2-12.0 [facility] Determination of erythrocyte mean corpuscular volume (MCV)Ordered By: Dr. Covarrubias on 03-23-2022 MCV (RBC) [Entitic vol] 87.9 fL 81-99 [facility] Hematocrit Auto (Bld) [Volum e fraction]Ordered By: Dr. Covarrubias on 03-23-2022 Hematocrit (Bld) [Volume fraction] 44.3 % 37-47 [facility] Laboratory - Chemistry and C hemistry - challengeOrdered By: Dr. Covarrubias on 03-23-2022 ALP [Catalytic activity/Vol] 93 U/L 45-117 [facility] ALT [Catalytic activity/Vol] 21 U/L 13-56 [facility] CO2 [Moles/Vol] 25.0 mmol/L 21.0-32.0 [facility] Globulin (S) [Mass/Vol] 4.6 g/dL 2.2-4.2 [facility] Urea nitrogen/Creatinine [Mass ratio] 10.9 mg/mg 10-20 [facility] Laboratory - Hematology and Cell countsOrdered By: Dr. Covarrubias on 03-23-2022 Erythrocyte distribution width (RBC) [Entitic vol] 51.7 fL 35.1-43.9 [facility] Erythrocyte distribution width (RBC) [Ratio] 16.0 % 11.6-14.6 [facility] Immature granulocytes/100 WBC (Bld) 0.300 % 0.0-0.9 [facility] Comment on above: IG% - Immature Granu locytes (promyelocytes, myelocytes and metamyelocytes) > 1% indicates that a LEFT SHIFT is Present. MCH (RBC) [Entitic mass] 27.0 pg 27.0-32.0 [facility] Nucleated RBC/100 WBC (Bld) [Ratio] 0 % 0-5 [facility] MCHC Auto (RBC) [Mass/Vol]Or dered By: Dr. Covarrubias on 03-23-2022 MCHC (RBC) [Mass/Vol] 30.7 g/dL 32-36 [facility] No Panel InformationOrdered By: Dr. Covarrubias on 03-23-2022 Estimated GFR (MDRD) Amer 82 mL/min >60 [facility] Comment on above: GFR Calc Estimated GFR (MDRD) Non-Af Amer 67 mL/min >60 [facility] Comment on above: Non- GFR Calc Platelets bldOrdered By: Dr. Covarrubias on 03-23-2022 Platelets (Bld) [#/Vol] 364 10*3/uL 150-450 [facility] Serum or plasma albumin roxi urement (mass/volume)Ordered By: Dr. Covarrubias on 03-23-2022 Albumin [Mass/Vol] 3.6 g/dL 3.2-5.0 [facility] Serum or plasma albumin/glob ulin mass ratioOrdered By: Dr. Covarrubias on 03-23-2022 Albumin/Globulin [Mass ratio] 0.8 {ratio} 0.9-2.4 [facility] Serum or plasma calcium roxi urement (mass/volume)Ordered By: Dr. Covarrubias on 03-23-2022 Calcium [Mass/Vol] 9.3 mg/dL 8.5-10.1 [facility] Serum or plasma creatinine m easurement (mass/volume)Ordered By: Dr. Covarrubias on 03-23-2022 Creatinine [Mass/Vol] 0.92 mg/dL 0.55-1.02 [facility] Comment on above: The validity of the calculated GFR & GFRAA in patients over 70 years has not been determined. Clinical correlation is essential. Serum or plasma urea nitroge n measurement (mass/volume)Ordered By: Dr. Covarrubias on 03-23-2022 Urea nitrogen [Mass/Vol] 10 mg/dL 7-18 [facility] Thin prep Papanicolaou smear with manual screeningOrdered By: Dr. Covarrubias on 03-23-2022 Thin prep Papanicolaou smear with manual screening 18 U/L 15-37 [facility] Thin prep Papanicolaou smear with manual screening 7 5-15 [facility] Absolute lymphocyte counton 10-08-2021 Lymphocytes Auto (Unsp spec) [#/Vol] 1.28 10*3/uL 0.83-4.51 [facility] Work Phone: Basophil percentageon 2021 Basophils/100 WBC (Bld) 0.4 % 0-1 [facility] Work Phone: Bilirubin [Mass/Vol] 0.40 mg/dL 0.20-1.00 [facility] Work Phone: Comment on above: For patients on eltr ombopag therapy, use of Dimension [place] TBIL is not recommended. Chloride [Moles/Vol] 107 mmol/L 98-107 [facility] Work Phone: Eosinophils/100 WBC (Bld) 2.5 % 0-5 [facility] Work Phone: Glucose [Mass/Vol] 109 mg/dL 74-106 [facility] Work Phone: Comment on above: Fasting Glucose resu lt from 100 to 125 mg/dL suggests IMPAIRED HOMEOSTASIS per A.D.A. criteria. Neutrophils (Bld) [#/Vol] 2.8 10*3/uL 2.0-7.7 [facility] Work Phone: Neutrophils/100 WBC (Bld) 62.3 % 47-70 [facility] Work Phone: Potassium [Moles/Vol] 3.9 mmol/L 3.5-5.1 [facility] Work Phone: Protein [Mass/Vol] 8.0 g/dL 6.4-8.2 [facility] Work Phone: Sodium [Moles/Vol] 139 mmol/L 136-145 [facility] Work Phone: WBC (Bld) [#/Vol] 4.5 10*3/uL 4.4-11.0 [facility] Work Phone: Blood erythrocytes count (nu mber/volume)on 10-08-2021 RBC (Bld) [#/Vol] 4.90 10*6/uL 4.2-5.4 [facility] Work Phone: Blood hemoglobin measurement (mass/volume)on 10-08-2021 Hemoglobin (Bld) [Mass/Vol] 13.5 g/dL 12.0-15.0 [facility] Work Phone: Blood lymphocytes/100 leukoc yteson 10-08-2021 Lymphocytes/100 WBC (Bld) 28.6 % 19-41 [facility] Work Phone: Blood monocytes/100 leukocyt eson 10-08-2021 Monocytes/100 WBC (Bld) 5.8 % 0-10 [facility] Work Phone: Blood platelet mean volumeon 10-08-2021 Platelet mean volume (Bld) [Entitic vol] 9.7 fL 6.2-12.0 [facility] Work Phone: Determination of erythrocyte mean corpuscular volume (MCV)on 10-08-2021 MCV (RBC) [Entitic vol] 89.0 fL 81-99 [facility] Work Phone: Hematocrit Auto (Bld) [Volum e fraction]on 10-08-2021 Hematocrit (Bld) [Volume fraction] 43.6 % 37-47 [facility] Work Phone: Laboratory - Chemistry and C hemistry - challengeon 10-08-2021 ALP [Catalytic activity/Vol] 84 U/L 45-117 [facility] Work Phone: ALT [Catalytic activity/Vol] 41 U/L 13-56 [facility] Work Phone: CO2 [Moles/Vol] 26.0 mmol/L 21.0-32.0 [facility] Work Phone: Globulin (S) [Mass/Vol] 4.6 g/dL 2.2-4.2 [facility] Work Phone: Urea nitrogen/Creatinine [Mass ratio] 9.9 mg/mg 10-20 [facility] Work Phone: [phone] Laboratory - Hematology and Cell countson 10-08-2021 Erythrocyte distribution width (RBC) [Entitic vol] 52.2 fL 35.1-43.9 [facility] Work Phone: [phone] Erythrocyte distribution width (RBC) [Ratio] 16.0 % 11.6-14.6 [facility] Work Phone: Immature granulocytes/100 WBC (Bld) 0.400 % 0.0-0.9 [facility] Work Phone: Comment on above: IG% - Immature Granu locytes (promyelocytes, myelocytes and metamyelocytes) > 1% indicates that a LEFT SHIFT is Present. MCH (RBC) [Entitic mass] 27.6 pg 27.0-32.0 [facility] Work Phone: Nucleated RBC/100 WBC (Bld) [Ratio] 0 % 0-5 [facility] Work Phone: MCHC Auto (RBC) [Mass/Vol]on 10-08-2021 MCHC (RBC) [Mass/Vol] 31.0 g/dL 32-36 [facility] Work Phone: No Panel Informationon 10-08 Estimated GFR (MDRD) Amer 73 mL/min >60 [facility] Work Phone: Comment on above: GFR Calc Estimated GFR (MDRD) Non-Af Amer 60 mL/min >60 [facility] Work Phone: Comment on above: Non- GFR Calc Platelets bldon 10-08-2021 Platelets (Bld) [#/Vol] 337 10*3/uL 150-450 [facility] Work Phone: Serum or plasma albumin roxi urement (mass/volume)on 10-08-2021 Albumin [Mass/Vol] 3.4 g/dL 3.2-5.0 [facility] Work Phone: Serum or plasma albumin/glob ulin mass ratioon 10-08-2021 Albumin/Globulin [Mass ratio] 0.7 {ratio} 0.9-2.4 [facility] Work Phone: Serum or plasma calcium roxi urement (mass/volume)on 10-08-2021 Calcium [Mass/Vol] 9.2 mg/dL 8.5-10.1 [facility] Work Phone: Serum or plasma creatinine m easurement (mass/volume)on 10-08-2021 Creatinine [Mass/Vol] 1.01 mg/dL 0.55-1.02 [facility] Work Phone: Comment on above: The validity of the calculated GFR & GFRAA in patients over 70 years has not been determined. Clinical correlation is essential. Serum or plasma urea nitroge n measurement (mass/volume)on 10-08-2021 Urea nitrogen [Mass/Vol] 10 mg/dL 7-18 [facility] Work Phone: Thin prep Papanicolaou smear with manual screeningon 10-08-2021 Thin prep Papanicolaou smear with manual screening 35 U/L 15-37 [facility] Work Phone: Thin prep Papanicolaou smear with manual screening 6 5-15 [facility] Work Phone: Absolute lymphocyte counton 07-04-2021 Lymphocytes Auto (Unsp spec) [#/Vol] 2.19 10*3/uL 0.83-4.51 [facility] Work Phone: Basophil percentageon 2021 Basophils/100 WBC (Bld) 0.6 % 0-1 [facility] Work Phone: Bilirubin [Mass/Vol] 0.50 mg/dL 0.20-1.00 [facility] Work Phone: Comment on above: For patients on eltr ombopag therapy, use of Dimension [place] TBIL is not recommended. Chloride [Moles/Vol] 105 mmol/L 98-107 [facility] Work Phone: Eosinophils/100 WBC (Bld) 2.6 % 0-5 [facility] Work Phone: Glucose [Mass/Vol] 80 mg/dL 74-106 [facility] Work Phone: Neutrophils (Bld) [#/Vol] 3.4 10*3/uL 2.0-7.7 [facility] Work Phone: Neutrophils/100 WBC (Bld) 53.7 % 47-70 [facility] Work Phone: Potassium [Moles/Vol] 3.9 mmol/L 3.5-5.1 [facility]: Protein [Mass/Vol] 8.5 g/dL 6.4-8.2 [facility] Work [facility]: Sodium [Moles/Vol] 138 mmol/L 136-145 [facility] Work Phone: WBC (Bld) [#/Vol] 6.4 10*3/uL 4.4-11.0 [facility] Work Phone: Blood erythrocytes count (nu mber/volume)on 07-04-2021 RBC (Bld) [#/Vol] 4.88 10*6/uL 4.2-5.4 [facility]: Blood hemoglobin measurement (mass/volume)on 07-04-2021 Hemoglobin (Bld) [Mass/Vol] 13.6 g/dL 12.0-15.0 [facility] Work Phone: Blood lymphocytes/100 leukoc yteson 07-04-2021 Lymphocytes/100 WBC (Bld) 34.1 % 19-41 [facility] Work Phone: Blood monocytes/100 leukocyt eson 07-04-2021 Monocytes/100 WBC (Bld) 8.7 % 0-10 [facility] Work Phone: Blood platelet mean volumeon 07-04-2021 Platelet mean volume (Bld) [Entitic vol] 9.4 fL 6.2-12.0 [facility] Work Phone: Determination of erythrocyte mean corpuscular volume (MCV)on 07-04-2021 MCV (RBC) [Entitic vol] 90.4 fL 81-99 [facility] Work Phone: Hematocrit Auto (Bld) [Volum e fraction]on 07-04-2021 Hematocrit (Bld) [Volume fraction] 44.1 % 37-47 [facility] Work Phone: Laboratory - Chemistry and C hemistry - challengeon 07-04-2021 ALP [Catalytic activity/Vol] 92 U/L 45-117 [facility] Work Phone: ALT [Catalytic activity/Vol] 23 U/L 13-56 [facility] Work Phone: CO2 [Moles/Vol] 30.0 mmol/L 21.0-32.0 [facility] Work Phone: Globulin (S) [Mass/Vol] 4.8 g/dL 2.2-4.2 [facility] Work Phone: Urea nitrogen/Creatinine [Mass ratio] 9.8 mg/mg 10-20 [facility] Work Phone: Laboratory - Hematology and Cell countson 07-04-2021 Erythrocyte distribution width (RBC) [Entitic vol] 53.1 fL 35.1-43.9 [facility] Work Phone: Erythrocyte distribution width (RBC) [Ratio] 16.0 % 11.6-14.6 [facility] Work Phone: Immature granulocytes/100 WBC (Bld) 0.300 % 0.0-0.9 [facility] Work Phone: Comment on above: IG% - Immature Granu locytes (promyelocytes, myelocytes and metamyelocytes) > 1% indicates that a LEFT SHIFT is Present. MCH (RBC) [Entitic mass] 27.9 pg 27.0-32.0 [facility] Work Phone: Nucleated RBC/100 WBC (Bld) [Ratio] 0 % 0-5 [facility] Work Phone: MCHC Auto (RBC) [Mass/Vol]on 07-04-2021 MCHC (RBC) [Mass/Vol] 30.8 g/dL 32-36 [facility] Work Phone: No Panel Informationon 07-04 Estimated GFR (MDRD) Amer 81 mL/min >60 [facility] Work Phone: Comment on above: GFR Calc Estimated GFR (MDRD) Non-Af Amer 67 mL/min >60 [facility] Work Phone: Comment on above: Non- GFR Calc Platelets bldon 07-04-2021 Platelets (Bld) [#/Vol] 379 10*3/uL 150-450 [facility] Work Phone: Serum or plasma albumin roxi urement (mass/volume)on 07-04-2021 Albumin [Mass/Vol] 3.7 g/dL 3.2-5.0 [facility] Work Phone: Serum or plasma albumin/glob ulin mass ratioon 07-04-2021 Albumin/Globulin [Mass ratio] 0.8 {ratio} 0.9-2.4 [facility] Work Phone: Serum or plasma calcium roxi urement (mass/volume)on 07-04-2021 Calcium [Mass/Vol] 9.1 mg/dL 8.5-10.1 [facility] Work Phone: Serum or plasma creatinine m easurement (mass/volume)on 07-04-2021 Creatinine [Mass/Vol] 0.92 mg/dL 0.55-1.02 [facility] Work Phone: Comment on above: The validity of the calculated GFR & GFRAA in patients over 70 years has not been determined. Clinical correlation is essential. Serum or plasma urea nitroge n measurement (mass/volume)on 07-04-2021 Urea nitrogen [Mass/Vol] 9 mg/dL 7-18 [facility] Work Phone: Thin prep Papanicolaou smear with manual screeningon 07-04-2021 Thin prep Papanicolaou smear with manual screening 17 U/L 15-37 [facility] Work Phone: Thin prep Papanicolaou smear with manual screening 3 5-15 [facility] Work Phone: Absolute lymphocyte counton 04-22-2021 Lymphocytes Auto (Unsp spec) [#/Vol] 2.01 10*3/uL 0.83-4.51 [facility] Work Phone: Basophil percentageon 2021 Basophils/100 WBC (Bld) 0.6 % 0-1 [facility] Work Phone: Bilirubin [Mass/Vol] 0.50 mg/dL 0.20-1.00 [facility] Work Phone: Comment on above: For patients on eltr ombopag therapy, use of Dimension [place] TBIL is not recommended. Chloride [Moles/Vol] 102 mmol/L 98-107 [facility] Work Phone: Eosinophils/100 WBC (Bld) 1.4 % 0-5 [facility] Work Phone: Glucose [Mass/Vol] 79 mg/dL 74-106 [facility] Work Phone: Comment on above: Please note revised GLUCOSE reference range effective 2017. Neutrophils (Bld) [#/Vol] 4.5 10*3/uL 2.0-7.7 [facility] Work Phone: Neutrophils/100 WBC (Bld) 62.3 % 47-70 [facility] Work Phone: Potassium [Moles/Vol] 3.9 mmol/L 3.5-5.1 [facility] Work Phone: Protein [Mass/Vol] 8.4 g/dL 6.4-8.2 [facility] Work Phone: Sodium [Moles/Vol] 137 mmol/L 136-145 [facility] Work Phone: WBC (Bld) [#/Vol] 7.2 10*3/uL 4.4-11.0 [facility] Work Phone: Blood erythrocytes count (nu mber/volume)on 04-22-2021 RBC (Bld) [#/Vol] 5.07 10*6/uL 4.2-5.4 [facility] Work Phone: Blood hemoglobin measurement (mass/volume)on 04-22-2021 Hemoglobin (Bld) [Mass/Vol] 13.7 g/dL 12.0-15.0 [facility] Work Phone: Blood lymphocytes/100 leukoc yteson 04-22-2021 Lymphocytes/100 WBC (Bld) 28.1 % 19-41 [facility] Work Phone: Blood monocytes/100 leukocyt eson 04-22-2021 Monocytes/100 WBC (Bld) 7.3 % 0-10 [facility] Work Phone: Blood platelet mean volumeon 04-22-2021 Platelet mean volume (Bld) [Entitic vol] 9.5 fL 6.2-12.0 [facility] Work Phone: Determination of erythrocyte mean corpuscular volume (MCV)on 04-22-2021 MCV (RBC) [Entitic vol] 89.3 fL 81-99 [facility] Work Phone: Hematocrit Auto (Bld) [Volum e fraction]on 04-22-2021 Hematocrit (Bld) [Volume fraction] 45.3 % 37-47 [facility] Work Phone: Laboratory - Chemistry and C hemistry - challengeon 04-22-2021 ALP [Catalytic activity/Vol] 90 U/L 45-117 [facility] Work Phone: ALT [Catalytic activity/Vol] 28 U/L 13-56 [facility] Work Phone: CO2 [Moles/Vol] 27.0 mmol/L 21.0-32.0 [facility] Work Phone: Globulin (S) [Mass/Vol] 5.1 g/dL 2.2-4.2 [facility] Work Phone: Urea nitrogen/Creatinine [Mass ratio] 8.8 mg/mg 10-20 [facility] Work Phone: Laboratory - Hematology and Cell countson 04-22-2021 Erythrocyte distribution width (RBC) [Entitic vol] 51.0 fL 35.1-43.9 [facility] Work Phone: Erythrocyte distribution width (RBC) [Ratio] 15.6 % 11.6-14.6 [facility] Work Phone: Immature granulocytes/100 WBC (Bld) 0.300 % 0.0-0.9 [facility] Work Phone: Comment on above: IG% - Immature Granu locytes (promyelocytes, myelocytes and metamyelocytes) > 1% indicates that a LEFT SHIFT is Present. MCH (RBC) [Entitic mass] 27.0 pg 27.0-32.0 [facility] Work Phone: Nucleated RBC/100 WBC (Bld) [Ratio] 0 % 0-5 [facility] Work Phone: MCHC Auto (RBC) [Mass/Vol]on 04-22-2021 MCHC (RBC) [Mass/Vol] 30.2 g/dL 32-36 [facility] Work Phone: No Panel Informationon 04-22 Estimated GFR (MDRD) Amer 83 mL/min >60 [facility] Work Phone: Comment on above: GFR Calc Estimated GFR (MDRD) Non-Af Amer 68 mL/min >60 [facility] Work Phone: Comment on above: Non- GFR Calc Platelets bldon 04-22-2021 Platelets (Bld) [#/Vol] 389 10*3/uL 150-450 [facility] Work Phone: Serum or plasma albumin roxi urement (mass/volume)on 04-22-2021 Albumin [Mass/Vol] 3.3 g/dL 3.2-5.0 [facility] Work Phone: Serum or plasma albumin/glob ulin mass ratioon 04-22-2021 Albumin/Globulin [Mass ratio] 0.6 {ratio} 0.9-2.4 [facility] Work Phone: Serum or plasma calcium roxi urement (mass/volume)on 04-22-2021 Calcium [Mass/Vol] 9.3 mg/dL 8.5-10.1 [facility] Work Phone: Serum or plasma creatinine m easurement (mass/volume)on 04-22-2021 Creatinine [Mass/Vol] 0.91 mg/dL 0.55-1.02 [facility] Work Phone: Comment on above: The validity of the calculated GFR & GFRAA in patients over 70 years has not been determined. Clinical correlation is essential. Serum or plasma urea nitroge n measurement (mass/volume)on 04-22-2021 Urea nitrogen [Mass/Vol] 8 mg/dL 7-18 [facility] Work Phone: Thin prep Papanicolaou smear with manual screeningon 04-22-2021 Thin prep Papanicolaou smear with manual screening 24 U/L 15-37 [facility] Work Phone: Thin prep Papanicolaou smear with manual screening 8 5-15 [facility] Work Phone: Laboratory - Microbiology an d Antimicrobial susceptibilityon 04-01-2021 SARS-CoV-2 (COVID-19) RNA DEB+probe Ql (Unsp spec) Not detected Not Detect [facility] Work Phone: Comment on above: Normal [...] Date Time Vital Sign Value Performing Clinician Jairo sebastian 02-07-2025 09:01-0400 Body height 167.[address] Nicky Covarrubias MD Work Phone: [facility] [facility] 02-07-2025 09:01-0400 Body mass index (BMI) [Ratio] 50.3 kg/m2 Dr. Nicky Covarrubias MD Work Phone: [facility] 02-07-2025 09:01-0400 Body weight 141.[address] Nicky Covarrubias MD Work Phone: [facility] 02-07-2025 09:01-0400 Diastolic blood pressure 84 mm[Hg] Dr. Nicky Covarrubias MD Work Phone: [facility] 02-07-2025 09:01-0400 Systolic blood pressure 138 mm[Hg] Dr. Nicky Covarrubias MD Work Phone: [facility] 01-16-2025 07:19-0400 Body mass index (BMI) [Ratio] 49.7 kg/m2 Dr. Nicky Covarrubias MD Work Phone: [facility] 01-16-2025 07:19-0400 Body temperature 97.2 [degF] Dr. Nicky Covarrubias MD Work Phone: [facility] 01-16-2025 07:19-0400 Body weight 139.[address] Nicky Covarrubias MD Work Phone: [facility] 01-16-2025 07:19-0400 Diastolic blood pressure 90 mm[Hg] Dr. Nicky Covarrubias MD Work Phone: [facility] 01-16-2025 07:19-0400 Heart rate 74 /min Dr. Nicky Covarrubias MD Work Phone: [facility] 01-16-2025 07:19-0400 Respiratory rate 20 /min Dr. Nicky Covarrubias MD Work Phone: [facility] 01-16-2025 07:19-0400 SaO2% (BldA) [Mass fraction] 96 % Dr. Nicky Covarrubias MD Work Phone: [facility] 01-16-2025 07:19-0400 Systolic blood pressure 132 mm[Hg] Dr. Nicky Covarrubias MD Work Phone: [facility] 01-15-2025 09:09-0400 Body height 167.[address] Nicky Covarrubias MD Work Phone: [facility] 01-15-2025 09:09-0400 Body mass index (BMI) [Ratio] 50.5 kg/m2 Dr. Nicky Covarrubias MD Work Phone: [facility] 01-15-2025 09:09-0400 Body temperature 98.5 [degF] Dr. Nicky Covarrubias MD Work Phone: [facility] 01-15-2025 09:09-0400 Body weight 141.[address] Nicky Covarrubias MD Work Phone: [facility] 01-15-2025 09:09-0400 Diastolic blood pressure 80 mm[Hg] Dr. Nicky Covarrubias MD Work Phone: [facility] 01-15-2025 09:09-0400 Heart rate 81 /min Dr. Nicky Covarrubias MD Work Phone: [facility] 01-15-2025 09:09-0400 SaO2% (BldA) [Mass fraction] 96 % Dr. Nicky Covarrubias MD Work Phone: [facility] 01-15-2025 09:09-0400 Systolic blood pressure 132 mm[Hg] Dr. Nicky Covarrubias MD Work Phone: [facility] 01-01-2025 13:43-0400 Body height 1706.[address] Nicky Covarrubias MD Work Phone: [facility] 01-01-2025 13:35-0400 Body mass index (BMI) [Ratio] 51 kg/m2 Dr. Nicky Covarrubias MD Work Phone: [facility] 01-01-2025 13:35-0400 Body weight 143.[address] Nicky Covarrubias MD Work Phone: [facility] 12-27-2024 14:06-0400 Body height 1706.[address] Nicky Covarrubias MD Work Phone: [facility] 12-27-2024 14:06-0400 Body mass index (BMI) [Ratio] 0.4 kg/m2 Dr. Nicky Covarrubias MD Work Phone: [facility] 12-27-2024 14:06-0400 Body temperature 96.8 [degF] Dr. Nicky Covarrubias MD Work Phone: [facility] 12-27-2024 14:06-0400 Body weight 142.[address] Nicky Covarrubias MD Work Phone: [facility] 12-27-2024 14:06-0400 Diastolic blood pressure 68 mm[Hg] Dr. Nicky Covarrubias MD Work Phone: [facility] 12-27-2024 14:06-0400 Heart rate 65 /min Dr. Nicky Covarrubias MD Work Phone: [facility] 12-27-2024 14:06-0400 Respiratory rate 18 /min Dr. Nicky Covarrubias MD Work Phone: [facility] 12-27-2024 14:06-0400 SaO2% (BldA) [Mass fraction] 93 % Dr. Nicky Covarrubias MD Work Phone: [facility] 12-27-2024 14:06-0400 Systolic blood pressure 128 mm[Hg] Dr. Nicky Covarrubias MD Work Phone: [facility] 11-03-2024 08:11-0400 Body mass index (BMI) [Ratio] 48.7 kg/m2 Dr. Nicky Covarrubias MD Work Phone: [facility] 11-03-2024 08:11-0400 Body temperature 97.3 [degF] Dr. Nicky Covarrubias MD Work Phone: [facility] 11-03-2024 08:11-0400 Body weight 136.[address] Nicky Covarrubias MD Work Phone: [facility] 11-03-2024 08:11-0400 Diastolic blood pressure 89 mm[Hg] Dr. Nicky Covarrubias MD Work Phone: [facility] 11-03-2024 08:11-0400 Heart rate 92 /min Dr. Nicky Covarrubias MD Work Phone: [facility] 11-03-2024 08:11-0400 Respiratory rate 16 /min Dr. Nicky Covarrubias MD Work Phone: [facility] 11-03-2024 08:11-0400 SaO2% (BldA) [Mass fraction] 98 % Dr. Nicky Covarrubias MD Work Phone: [facility] 11-03-2024 08:11-0400 Systolic blood pressure 131 mm[Hg] Dr. Nicky Covarrubias MD Work Phone: [facility] 09-28-2024 10:06-0400 Body height 167.[address] Nicky Covarrubias MD Work Phone: [facility] 09-28-2024 10:06-0400 Body mass index (BMI) [Ratio] 47.6 kg/m2 Dr. Nicky Covarrubias MD Work Phone: [facility] 09-28-2024 10:06-0400 Body temperature 97.8 [degF] Dr. Nicky Covarrubias MD Work Phone: [facility] 09-28-2024 10:06-0400 Body weight 133.[address] Nicky Covarrubias MD Work Phone: [facility] 09-28-2024 10:06-0400 Diastolic blood pressure 76 mm[Hg] Dr. Nicky Covarrubias MD Work Phone: [facility] 09-28-2024 10:06-0400 Heart rate 119 /min Dr. Nicky Covarrubias MD Work Phone: [facility] 09-28-2024 10:06-0400 Respiratory rate 20 /min Dr. Nicky Covarrubias MD Work Phone: [facility] 09-28-2024 10:06-0400 SaO2% (BldA) [Mass fraction] 92 % Dr. Nicky Covarrubias MD Work Phone: [facility] 09-28-2024 10:06-0400 Systolic blood pressure 132 mm[Hg] Dr. Nicky Covarrubias MD Work Phone: [facility] 09-05-2024 12:53-0400 Body height 167.[address] Nicky Covarrubias MD Work Phone: [facility] 09-05-2024 12:53-0400 Body weight 136.[address] Nicky Covarrubias MD Work Phone: [facility] 09-05-2024 12:53-0400 Heart rate 90 /min Dr. Nicky Covarrubias MD Work Phone: [facility] 09-05-2024 12:53-0400 SaO2% (BldA) [Mass fraction] 94 % Dr. Nicky Covarrubias MD Work Phone: [facility] 08-23-2024 14:49-0400 Body mass index (BMI) [Ratio] 48.3 kg/m2 Dr. Nicky Covarrubias MD Work Phone: [facility] 08-23-2024 14:49-0400 Body temperature 96.4 [degF] Dr. Nicky Covarrubias MD Work Phone: [facility] 08-23-2024 14:49-0400 Body weight 135.[address] Nicky Covarrubias MD Work Phone: [facility] 08-23-2024 14:49-0400 Diastolic blood pressure 70 mm[Hg] Dr. Nicky Covarrubias MD Work Phone: [facility] 08-23-2024 14:49-0400 Heart rate 115 /min Dr. Nicky Covarrubias MD Work Phone: [facility] 08-23-2024 14:49-0400 Respiratory rate 16 /min Dr. Nicky Covarrubias MD Work Phone: [facility] 08-23-2024 14:49-0400 SaO2% (BldA) [Mass fraction] 93 % Dr. Nicky Covarrubias MD Work Phone: [facility] 08-23-2024 14:49-0400 Systolic blood pressure 130 mm[Hg] Dr. Nicky Covarrubias MD Work Phone: [facility] 08-01-2024 08:37-0400 Body mass index (BMI) [Ratio] 47 kg/m2 Dr. Nicky Covarrubias MD Work Phone: [facility] 08-01-2024 08:37-0400 Body temperature 97.4 [degF] Dr. Nicky Covarrubias MD Work Phone: [facility] 08-01-2024 08:37-0400 Body weight 131.[address] Nicky Covarrubias MD Work Phone: [facility] 08-01-2024 08:37-0400 Diastolic blood pressure 86 mm[Hg] Dr. Nicky Covarrubias MD Work Phone: [facility] 08-01-2024 08:37-0400 Heart rate 96 /min Dr. Nicky Covarrubias MD Work Phone: [facility] 08-01-2024 08:37-0400 Respiratory rate 20 /min Dr. Nicky Covarrubias MD Work Phone: [facility] 08-01-2024 08:37-0400 SaO2% (BldA) [Mass fraction] 96 % Dr. Nicky Covarrubias MD Work Phone: [facility] 08-01-2024 08:37-0400 Systolic blood pressure 143 mm[Hg] Dr. Nicky Covarrubias MD Work Phone: [facility] 06-15-2024 12:28-0500 Body height 167.[address] Nicky Covarrubias MD Work Phone: [facility] 06-15-2024 12:28-0500 Body mass index (BMI) [Ratio] 46.6 kg/m2 Dr. Nicky Covarrubias MD Work Phone: [facility] 06-15-2024 12:28-0500 Body temperature 97.8 [degF] Dr. Nicky Covarrubias MD Work Phone: [facility] 06-15-2024 12:28-0500 Body weight 131.[address] Nicky Covarrubias MD Work Phone: [facility] 06-15-2024 12:28-0500 Diastolic blood pressure 70 mm[Hg] Dr. Nicky Covarrubias MD Work Phone: [facility] 06-15-2024 12:28-0500 Heart rate 114 /min Dr. Nicky Covarrubias MD Work Phone: [facility] 06-15-2024 12:28-0500 Respiratory rate 25 /min Dr. Nicky Covarrubias MD Work Phone: [facility] 06-15-2024 12:28-0500 SaO2% (BldA) [Mass fraction] 98 % Dr. Nicky Covarrubias MD Work Phone: [facility] 06-15-2024 12:28-0500 Systolic blood pressure 142 mm[Hg] Dr. Nicky Covarrubias MD Work Phone: [facility] 06-01-2024 18:07-0500 Body mass index (BMI) [Ratio] 46.6 kg/m2 Dr. Nicky Covarrubias MD Work Phone: [facility] 06-01-2024 18:07-0500 Body temperature 98.9 [degF] Dr. Nicky Covarrubias MD Work Phone: [facility] 06-01-2024 18:07-0500 Body weight 131.[address] Nicky Covarrubias MD Work Phone: [facility] 06-01-2024 18:07-0500 Diastolic blood pressure 88 mm[Hg] Dr. Nicky Covarrubias MD Work Phone: [facility] 06-01-2024 18:07-0500 Heart rate 102 /min Dr. Nicky Covarrubias MD Work Phone: [facility] 06-01-2024 18:07-0500 Respiratory rate 18 /min Dr. Nicky Covarrubias MD Work Phone: [facility] 06-01-2024 18:07-0500 SaO2% (BldA) [Mass fraction] 94 % Dr. Nicky Covarrubias MD Work Phone: [facility] 06-01-2024 18:07-0500 Systolic blood pressure 140 mm[Hg] Dr. Nicky Covarrubias MD Work Phone: [facility] 05-28-2024 09:30-0500 Body temperature 98.1 [degF] Dr. Nicky Covarrubias MD Work Phone: [facility] 05-28-2024 09:30-0500 Diastolic blood pressure 80 mm[Hg] Dr. Nicky Covarrubias MD Work Phone: [facility] 05-28-2024 09:30-0500 Heart rate 114 /min Dr. Nicky Covarrubias MD Work Phone: [facility] 05-28-2024 09:30-0500 Respiratory rate 18 /min Dr. Nicky Covarrubias MD Work Phone: [facility] 05-28-2024 09:30-0500 SaO2% (BldA) [Mass fraction] 90 % Dr. Nicky Covarrubias MD Work Phone: [facility] 05-28-2024 09:30-0500 Systolic blood pressure 142 mm[Hg] Dr. Nicky Covarrubias MD Work Phone: [facility] 05-24-2024 16:40-0500 Diastolic blood pressure 71 mm[Hg] Dr. Nicky Covarrubias MD Work Phone: [facility] 05-24-2024 16:40-0500 Heart rate 80 /min Dr. Nicky Covarrubias MD Work Phone: [facility] 05-24-2024 16:40-0500 SaO2% (BldA) [Mass fraction] 93 % Dr. Nicky Covarrubias MD Work Phone: [facility] 05-24-2024 16:40-0500 Systolic blood pressure 136 mm[Hg] Dr. Nicky Covarrubias MD Work Phone: [facility] 05-24-2024 14:04-0500 Respiratory rate 18 /min Dr. Nicky Covarrubias MD Work Phone: [facility] 05-24-2024 10:15-0500 Body temperature 97.7 [degF] Dr. Nicky Covarrubias MD Work Phone: [facility] 05-23-2024 07:55-0500 Inhaled oxygen flow rate 2 L/min Dr. Nicky Covarrubias MD Work Phone: [facility] 05-20-2024 13:31-0500 Body weight 131.[address] Nicky Covarrubias MD Work Phone: [facility] 05-19-2024 20:18-0500 Body mass index (BMI) [Ratio] 46.9 kg/m2 Dr. Nicky Covarrubias MD Work Phone: [facility] 05-19-2024 09:30-0500 SaO2% (BldA) [Mass fraction] 79 % Dr. Nicky Covarrubias MD Work Phone: [facility] 04-27-2024 14:52-0500 Body mass index (BMI) [Ratio] 47.2 kg/m2 Dr. Nicky Covarrubias MD Work Phone: [facility] 04-27-2024 14:52-0500 Body temperature 97.3 [degF] Dr. Nicky Covarrubias MD Work Phone: [facility] 04-27-2024 14:52-0500 Body weight 136.[address] Nicky Covarrubias MD Work Phone: [facility] 04-27-2024 14:52-0500 Diastolic blood pressure 84 mm[Hg] Dr. Nicky Covarrubias MD Work Phone: [facility] 04-27-2024 14:52-0500 Heart rate 98 /min Dr. Nicky Covarrubias MD Work Phone: [facility] 04-27-2024 14:52-0500 Respiratory rate 18 /min Dr. iNcky Covarrubias MD Work Phone: [facility] 04-27-2024 14:52-0500 SaO2% (BldA) [Mass fraction] 94 % Dr. Nicky Covarrubias MD Work Phone: [facility] 04-27-2024 14:52-0500 Systolic blood pressure 130 mm[Hg] Dr. Nicky Covarrubias MD Work Phone: [facility] 03-31-2023 14:32-0500 Body height 170.[address] Nicky Covarrubias Work Phone: [facility] 03-31-2023 14:32-0500 Body mass index (BMI) [Ratio] 45.9 kg/m2 Dr. Nicky Covarrubias Work Phone: [facility] 03-31-2023 14:32-0500 Body temperature 97.4 [degF] Dr. Nicky Covarrubias Work Phone: [facility] 03-31-2023 14:32-0500 Body weight 133.[address] Nicky Covarrubias Work Phone: [facility] 03-31-2023 14:32-0500 Diastolic blood pressure 80 mm[Hg] Dr. Nicky Covarrubias Work Phone: [facility] 03-31-2023 14:32-0500 Heart rate 89 /min Dr. Nicky Covarrubias Work Phone: [facility] 03-31-2023 14:32-0500 Respiratory rate 16 /min Dr. Nicky Covarrubias Work Phone: [facility] 03-31-2023 14:32-0500 Systolic blood pressure 126 mm[Hg] Dr. Nicky Covarrubias Work Phone: [facility] 12-31-2022 15:34-0400 Body mass index (BMI) [Ratio] 45.6 kg/m2 Dr. Nicky Covarrubias Work Phone: [facility] 12-31-2022 15:34-0400 Body temperature 96.5 [degF] Dr. Nicky Covarrubias Work Phone: [facility] 12-31-2022 15:34-0400 Body weight 132.[address] Nicky Covarrubias Work Phone: [facility] 12-31-2022 15:34-0400 Diastolic blood pressure 80 mm[Hg] Dr. Nicky Covarrubias Work Phone: [facility] 12-31-2022 15:34-0400 Heart rate 98 /min Dr. Nicky Covarrubias Work Phone: [facility] 12-31-2022 15:34-0400 Respiratory rate 18 /min Dr. Nicky Covarrubias Work Phone: [facility] 12-31-2022 15:34-0400 SaO2% (BldA) [Mass fraction] 97 % Dr. Nicky Covarrubias Work Phone: [facility] 12-31-2022 15:34-0400 Systolic blood pressure 128 mm[Hg] Dr. Nicky Covarrubias Work Phone: [facility] 05-06-2022 14:48-0500 Body height 170.[address] Nicky Covarrubias Work Phone: [facility] 05-06-2022 14:48-0500 Body mass index (BMI) [Ratio] 45.1 kg/m2 Dr. Nicky Covarrubias Work Phone: [facility] 05-06-2022 14:48-0500 Body temperature 98 [degF] Dr. Nicky Covarrubias Work Phone: [facility] 05-06-2022 14:48-0500 Body weight 130.[address] Nicky Covarrubias Work Phone: [facility] 05-06-2022 14:48-0500 Diastolic blood pressure 84 mm[Hg] Dr. Nicky Covarrubias Work Phone: [facility] 05-06-2022 14:48-0500 Heart rate 85 /min Dr. Nicky Covarrubias Work Phone: [facility] 05-06-2022 14:48-0500 Respiratory rate 14 /min Dr. Nicky Covarrubias Work Phone: [facility] 05-06-2022 14:48-0500 SaO2% (BldA) [Mass fraction] 99 % Dr. Nicky Covarrubias Work Phone: [facility] 05-06-2022 14:48-0500 Systolic blood pressure 116 mm[Hg] Dr. Nicky Covarrubias Work Phone: [facility] 03-23-2022 09:51-0500 Body height 170.[address] Nicky Covarrubias Work Phone: [facility] Work Phone: 03-23-2022 09:51-0500 Body mass index (BMI) [Ratio] 44.9 kg/m2 Dr. Nicky Covarrubias Work Phone: [facility] 03-23-2022 09:51-0500 Body temperature 97.6 [degF] Dr. Nicky Covarrubias Work Phone: [facility] 03-23-2022 09:51-0500 Body weight 130.[address] Nicky Covarrubias Work Phone: [facility] 03-23-2022 09:51-0500 Diastolic blood pressure 84 mm[Hg] Dr. Nicky Covarrubias Work Phone: [facility] 03-23-2022 09:51-0500 Heart rate 84 /min Dr. Nicky Covarrubias Work Phone: [facility] 03-23-2022 09:51-0500 Respiratory rate 14 /min Dr. Nicky Covarrubias Work Phone: [facility] 03-23-2022 09:51-0500 SaO2% (BldA) [Mass fraction] 97 % Dr. Nicky Covarrubias Work Phone: [facility] 03-23-2022 09:51-0500 Systolic blood pressure 132 mm[Hg] Dr. Nicky Covarrubias Work Phone: [facility] 12-29-2021 15:26-0400 Body mass index (BMI) [Ratio] 44.4 kg/m2 Dr. Nicky Covarrubias Work Phone: [facility] Work Phone: 12-29-2021 15:26-0400 Body temperature 97.6 [degF] Dr. Nicky Covarrubias Work Phone: [facility] Work Phone: 12-29-2021 15:26-0400 Body weight 128.[address] Nicky Covarrubias Work Phone: [facility] Work Phone: 12-29-2021 15:26-0400 Diastolic blood pressure 84 mm[Hg] Dr. Nicky Covarrubias Work Phone: [facility] Work Phone: 12-29-2021 15:26-0400 Heart rate 81 /min Dr. Nicky Covarrubias Work Phone: [facility] Work Phone: 12-29-2021 15:26-0400 Respiratory rate 16 /min Dr. Nicky Covarrubias Work Phone: [facility] Work Phone: 12-29-2021 15:26-0400 SaO2% (BldA) [Mass fraction] 98 % Dr. Nicky Covarrubias Work Phone: [facility] Work Phone: 12-29-2021 15:26-0400 Systolic blood pressure 122 mm[Hg] Dr. Nicky Covarrubias Work Phone: [facility] Work Phone: 09-30-2021 15:15-0400 Body height 170.[address] Nicky Covarrubias Work Phone: [facility] Work Phone: 09-30-2021 15:15-0400 Body mass index (BMI) [Ratio] 45.4 kg/m2 Dr. Nicky Covarrubias Work Phone: [facility] Work Phone: 09-30-2021 15:15-0400 Body temperature 98 [degF] Dr. Nicky Covarrubias Work Phone: [facility] Work Phone: 09-30-2021 15:15-0400 Body weight 131.[address] Nicky Covarrubias Work Phone: [facility] Work Phone: 09-30-2021 15:15-0400 Diastolic blood pressure 86 mm[Hg] Dr. Nicky Covarrubias Work Phone: [facility] Work Phone: 09-30-2021 15:15-0400 Heart rate 89 /min Dr. Nicky Covarrubias Work Phone: [facility] Work Phone: 09-30-2021 15:15-0400 Respiratory rate 14 /min Dr. Nicky Covarrubias Work Phone: [facility] Work Phone: 09-30-2021 15:15-0400 SaO2% (BldA) [Mass fraction] 97 % Dr. Nicky Covarrubias Work Phone: [facility] Work Phone: 09-30-2021 15:15-0400 Systolic blood pressure 128 mm[Hg] Dr. Nicky Covarrubias Work Phone: [facility] Work Phone: 08-20-2021 14:31-0400 Body mass index (BMI) [Ratio] 45.8 kg/m2 Dr. Nicky Covarrubias Work Phone: [facility] Work Phone: 08-20-2021 14:31-0400 Body temperature 97.6 [degF] Dr. Nicky Covarrubias Work Phone: [facility] Work Phone: 08-20-2021 14:31-0400 Body weight 132.[address] Nicky Covarrubias Work Phone: [facility] Work Phone: 08-20-2021 14:31-0400 Diastolic blood pressure 78 mm[Hg] Dr. Nicky Covarrubias Work Phone: [facility] Work Phone: 08-20-2021 14:31-0400 Heart rate 102 /min Dr. Nicky Covarrubias Work Phone: [facility] Work Phone: 08-20-2021 14:31-0400 Respiratory rate 16 /min Dr. Nicky Covarrubias Work Phone: [facility] Work Phone: 08-20-2021 14:31-0400 SaO2% (BldA) [Mass fraction] 96 % Dr. Nicky Covarrubias Work Phone: [facility] Work Phone: 08-20-2021 14:31-0400 Systolic blood pressure 122 mm[Hg] Dr. Nicky Covarrubias Work Phone: [facility] Work Phone: 04-24-2021 13:53-0500 Body height 170.[address] Nicky Covarrubias Work Phone: [facility] Work Phone: 04-24-2021 13:53-0500 Body mass index (BMI) [Ratio] 46.2 kg/m2 Dr. Nicky Covarrubias Work Phone: [facility] Work Phone: 04-24-2021 13:53-0500 Body temperature 96.8 [degF] Dr. Nicky Covarrubias Work Phone: [facility] Work Phone: 04-24-2021 13:53-0500 Body weight 133.[address] Nicky Covarrubias Work Phone: [facility] Work Phone: 04-24-2021 13:53-0500 Diastolic blood pressure 68 mm[Hg] Dr. Nicky Covarrubias Work Phone: [facility] Work Phone: 04-24-2021 13:53-0500 Heart rate 109 /min Dr. Nicky Covarrubias Work Phone: [facility] Work Phone: 04-24-2021 13:53-0500 Respiratory rate 16 /min Dr. Nicky Covarrubias Work Phone: [facility] Work Phone: 04-24-2021 13:53-0500 SaO2% (BldA) [Mass fraction] 97 % Dr. Nicky Covarrubias Work Phone: [facility] Work Phone: 04-24-2021 13:53-0500 Systolic blood pressure 116 mm[Hg] Dr. Nicky Covarrubias Work Phone: [facility] Work Phone: 10-03-2020 14:04-0400 Body mass index (BMI) [Ratio] 46.8 kg/m2 Dr. Nicky Covarrubias Work Phone: [facility] Work Phone: Encounters Encounter Date Encounter Type Care Provider Facility Start: 02-27-2025 ambulatory Nicky Robini ty:[facility] Start: 02-07-2025 End: 02-07-2025 Patient encounter procedure Clara Lopez ENGINEERING SPECIALIST TECHNICIAN-C -Laboratory Spec[facility] Work Phone: Start: 02-07-2025 End: 02-07-2025 Patient encounter procedure Clara Lopez ENGINEERING SPECIALIST TECHNICIAN-C -[facility] Work Phone: Start: 02-07-2025 End: 02-07-2025 Patient encounter status Clara Lopez ENGINEERING SPECIALIST TECHNICIAN-C [facility] Start: 02-07-2025 End: 02-07-[address] Nicky Covarrubias MD Work Phone: -[facility] Start: 02-07-2025 End: 02-07-2025 ambulatory Nicky Covarrubias Facility:[facility] Start: 01-18-[address] Yosi stoddard DO -Physical Therapy Work Phone: Start: 01-18-2025 ambulatory Lorenapiter Pérezjuan alberto Facili ty:[facility] Start: 01-16-2025 End: 01-16-2025 Patient encounter procedure MARGIE Monique -[facility] Work Phone: Start: 01-16-2025 End: 01-16-[address] Nicky Covarrubias MD Work Phone: -[facility] Start: 01-15-2025 End: 01-15-2025 Patient encounter procedure Alan Nguyen [place] [facility] Work Phone: Start: 01-15-2025 End: 01-15-[address] Nicky Covarrubias MD Work Phone: -[facility] Start: 01-01-2025 End: 01-01-[address] Donavon Marquez MD -[facility] Start: 01-01-2025 End: 01-01-[address] Nicky Covarrubias MD Work Phone: -[facility] Start: 12-29-2024 End: 12-29-[address] Nicky Covarrubias MD Work Phone: -[facility] Start: 12-29-2024 End: 12-29-[address] Nicky Covarrubias MD -[facility] Work Phone: Start: 12-28-2024 End: 12-29-[address] Nicky Covarrubias MD Work Phone: -[facility] Start: 12-28-2024 End: 12-28-[address] Nicky Covarrubias MD -[facility] Start: 12-27-2024 End: 12-27-[address] Nicky Covarrubias MD -[facility] Work Phone: Start: 12-27-2024 End: 12-28-[address] Nicky Covarrubias MD Work Phone: -[facility] Start: 11-03-2024 End: 11-03-[address] Nicky Covarrubias MD Work Phone: -[facility] Start: 11-03-2024 End: 11-03-[address] Nicky Covarrubias MD -[facility] Work Phone: Start: 11-03-2024 End: 11-03-2024 Patient encounter procedure MARGIE Monique -[facility] Work Phone: Start: 11-03-2024 End: 11-03-[address] Nicky Covarrubias MD Work Phone: -[facility] Start: 11-03-2024 End: 11-03-2024 ambulatory Nicky Covarrubias Facility:[facility] Start: 10-31-2024 End: 10-31-[address] Nicky Covarrubias MD Work Phone: -[facility] Start: 10-31-2024 End: 10-31-2024 Patient encounter procedure ENGINEERING SPECIALIST TECHNICIAN Zeinab Monique -[facility] Work Phone: Start: 10-31-2024 End: 10-31-20[facility] Start: 10-16-2024 End: 10-16-[address] Nicky Covarrubias MD Work Phone: -[facility] Start: 10-16-2024 End: 10-16-[address] Nicky Covarrubias MD -Sleep [facility] Work Phone: Start: 10-16-2024 End: 10-16-2024 ambulatory Oluturtonitalo Covarrubias Facility:[facility] Start: 10-06-2024 End: 10-06-[address] Nicky Covarrubias MD Work Phone: [facility] Work Phone: Start: 10-06-2024 End: 10-06-[address] Nicky Covarrubias MD Work Phone: -Laboratory [facility] Start: 10-06-2024 End: 10-06-2024 ambulatory Nicky Covarrubias Facility:[facility] Start: 09-29-2024 End: 09-29-[address] Nicky Covarrubias MD Work Phone: [facility] Work Phone: Start: 09-29-2024 End: 09-29-2024 Patient encounter procedure Katey IRENE -[facility] [place] Work Phone: Start: 09-28-2024 End: 09-28-2024 Patient encounter procedure Katey IRENE -[facility] Work Phone: Start: 09-28-2024 End: 09-29-[address] Nicky Covarrubias MD Work Phone: [facility] Work Phone: Start: 09-25-2024 End: 09-25-[address] Nicky Covarrubias MD Work Phone: [facility] Work Phone: Start: 09-25-2024 End: 09-25-[address] Nicky Covarrubias MD -Outpatient Breast Imaging Work Phone: Start: 09-25-2024 End: 09-25-2024 ambulatory [facility] Facility:[facility] Start: 09-18-2024 End: 09-18-[address] Nicky Covarrubias MD Work Phone: -Sleep Lab Start: 09-18-2024 End: 09-18-[address] Nicky Covarrubias MD -Sleep Lab Work Phone: Start: 09-18-2024 End: 09-18-2024 ambulatory [facility] Facility:[facility] Start: 09-11-2024 ambulatory [facility] Facili ty:[facility] Start: 09-11-2024 Non-patient / Non-visit Dr. Bryce yi DO -[facility] Start: 09-05-2024 End: 09-05-[address] Nicky Covarrubias MD Work Phone: [facility] Work Phone: Start: 09-05-2024 End: 09-05-2024 Patient encounter procedure MARGIE Monique -Pulmonary Services/Neurology Work Phone: Start: 09-05-2024 End: 09-05-2024 ambulatory [facility] Facility:[facility] Start: 08-23-2024 Encounter for genera l adult medical examination without abnormal findings [facility] Start: 08-23-2024 End: 08-23-[address] Nicky Covarrubias MD -[facility] Work Phone: Start: 08-23-2024 End: 08-23-[address] Nicky Covarrubias MD [facility] Start: 08-23-2024 End: 08-23-2024 ambulatory [facility] Start: 08-09-2024 End: 08-09-[address] Nicky Covarrubias MD Work Phone: [facility] Work Phone: Start: 08-09-2024 End: 08-09-2024 Patient encounter procedure MARGIE Monique -[facility], [place] Start: 08-09-2024 End: 08-09-2024 ambulatory [facility] Facility:[facility] Start: 08-01-2024 End: 08-01-2024 Patient encounter procedure MARGIE Monique -[facility] Work Phone: Start: 08-01-2024 End: 08-01-2024 ambulatory [facility] Start: 06-28-2024 Non-patient / Non-visit Dr. Bryce yi DO -[facility] Start: 06-28-2024 End: 06-28-[address] Nicky Covarrubias MD Work Phone: [facility] Work Phone: Start: 06-28-2024 End: 06-28-[address] Nicky Covarrubias MD -Pulmonary Services/Neurology Work Phone: Start: 06-28-2024 End: 06-28-2024 ambulatory [facility] Facility:[facility] Start: 06-15-2024 End: 06-15-2024 Patient encounter procedure Adolfo TABOR -[facility] Work Phone: Start: 06-15-2024 End: 06-15-2024 ambulatory Adolfo TABOR Facility[facility] Start: 06-01-2024 End: 06-01-[address] Nicky Covarrubias MD -[facility] Work Phone: Start: 06-01-2024 End: 06-01-2024 ambulatory Efpiter Segalghe Facility:[facility] Start: 05-29-2024 End: 05-29-2024 Patient encounter procedure Mk TABOR -Laboratory, Specimen Work Phone: Start: 05-28-2024 End: 05-28-2024 Patient encounter procedure Dustin Carbajal Rosmery ENGINEERING SPECIALIST TECHNICIAN-C [facility] Work Phone: Start: 05-28-2024 End: 05-29-2024 ambulatory Mk TABOR Facility:[facility] Start: 05-24-2024 Non-patient / Non-visit Dr. Nany Kebede MD -[facility] Work Phone: Start: 05-23-2024 Non-patient / Non-visit Dr. Nany Kebede MD -[facility] Work Phone: Start: 05-22-2024 Non-patient / Non-visit Dr. Nany Kebede MD -[facility] Work Phone: Start: 05-21-2024 Non-patient / Non-visit Dr. Zelalem Whiteside [facility] Work Phone: Start: 05-20-2024 Non-patient / Non-visit Dr. Zelalem Whiteside [facility] Work Phone: Start: 05-19-2024 [facility] Start: 05-19-2024 End: 05-24-2024 Evaluation and management of inpatient Dr. Nany Kebede MD -Progressive Care Unit Work Phone: Start: 05-19-2024 End: 05-19-2024 Patient encounter procedure [place] NURSE -[facility] Work Phone: Start: 05-19-2024 End: 05-19-2024 ambulatory Nicky Covarrubias Facility:[facility] Start: 05-16-2024 End: 05-16-[address] Nicky Covarrubias MD -Radiology, [place] Work Phone: Start: 05-16-2024 End: 05-16-2024 ambulatory Nicky Covarrubias Facility:[facility] Start: 04-27-2024 End: 04-27-[address] Nicky Covarrubias MD -[facility] Work Phone: Start: 04-27-2024 End: 04-27-2024 ambulatory Lorenalillian Segalarvindjuan alberto Facility[facility] Start: 04-27-2024 End: 04-27-2024 ambulatory [facility] Start: 03-31-2023 End: 03-31-[address] Nicky Covarrubias Work Phone: [facility] Work Phone: Start: 03-31-2023 End: 03-31-[address] Nicky Covarrubias Work Phone: [facility] Internal [facility] Work Phone: Start: 12-31-[address] Nicky Covarrubias Work Phone: [facility] Start: 12-31-2022 End: 12-31-[address] Nicky Covarrubias Work Phone: [facility] Work Phone: Start: 12-19-2022 End: 12-19-[address] Nicky Covarrubias Work Phone: [facility] Work Phone: Start: 06-17-2022 End: 06-17-[address] Nicky Covarrubias Work Phone: [facility] Work Phone: Start: 06-17-2022 End: 06-17-[address] Nicky Covarrubias Work Phone: [facility]-Laboratory, [place] Start: 05-06-2022 End: 05-06-[address] Nicky Covarrubias Work Phone: [facility] Internal Medicine Start: 03-23-2022 End: 03-23-[address] Nicky Covarrubias Work Phone: [facility] Work Phone: Start: 03-23-2022 End: 03-23-[address] Nicky Covarrubias Work Phone: [facility] Internal [facility] Start: 12-29-2021 End: 12-29-[address] Nicky Covarrubias Work Phone: [facility] Start: 10-08-2021 End: 10-08-[address] Nicky Covarrubias Work Phone: [facility]-Laboratory, [place] Start: 09-30-2021 End: 09-30-[address] Nicky Covarrubias Work Phone: [facility] Start: 08-20-2021 End: 08-20-[address] Nicky Covarrubias Work Phone: [facility] Internal [facility] Start: 07-28-2021 Non-patient / Non-visit Dr. Lorena Covarrubias Work Phone: [facility] Start: 07-04-2021 End: 07-04-[address] Nicky Covarrubias Work Phone: [facility]-Laboratory Start: 04-28-2021 End: 04-28-[address] Nicky Covarrubias Work Phone: [facility] Start: 04-24-2021 End: 04-24-[address] Nicky Covarrubias Work Phone: [facility] Start: 04-22-2021 End: 04-22-[address] Nicky Covarrubias Work Phone: [facility] Start: 04-01-2021 End: 04-01-[address] Nicky Covarrubias Work Phone: [facility] Int Med Virtual Start: 10-03-[address] Nicky Covarrubias Work Phone: [facility] Procedures Date Procedure Procedure Detail Performing Clinician Start: 02-07-2025 Liquid based cervica l cytology screening Dr. Nicky Covarrubias MD Work Phone: Comment on above: NEGATIVE FOR INTRAEP ITHELIAL LESION OR MALIGNANCY. This liquid based Th inPrep(R) pap test was interpretedusing the TellmeGen(R) Genius(TM) Cervical Algorithm wholeslide imaging system. Start: 01-01-2025 X-ray of knee, four or more views Dr. Nicky Covarrubias MD Work Phone: Start: 12-29-2024 Total iron binding c apacity measurement Dr. Nicky Covarrubias MD Work Phone: Start: 10-31-2024 CT of chest without contrast Dr. Nicky Covarrubias MD Work Phone: Start: 09-29-2024 X-ray of chest, PA a nd lateral views Dr. Nicky Covarrubias MD Work Phone: Start: 09-25-2024 Screening mammography D malathi Covarrubias MD Work Phone: Start: 05-29-[address] Beatriz Covarrubias MD Work Phone: Start: 05-24-[address] Nicky Covarurbias MD Work Phone: Start: 05-24-2024 Measurement of [...] Pulmonary Embolism (PE)RESULTS CALLED TO DAVID 05/19/24 170Mendoza Quinonez.REPORT READ BACK BY . SAME Start: 05-19-2024 SARS-CoV-2, Influenz a & RSV (PCR) Dr. Nicky Covarrubias MD Work Phone: Start: 05-16-2024 X-ray of chest, PA a nd lateral views Dr. Nicky Covarrubias MD Work Phone: Start: 04-28-2021 Screening mammography Clif Covarrubais Work Phone: Start: 04-28-[address] Chris Covarrubias Work Phone: Plan of Treatment Date Care Activity Detail Author Start: 01-15-2025 End: 01-15-2025 Patient encounter procedure Cellulitis of right upper arm [facility] Work Phone: Start: 01-01-2025 X-ray of knee, four or more views Knee 4 or More Views [facility] Start: 01-01-2025 XR Knee GE 4 Views [facility] Start: 09-18-2024 Polysomnography [facility] Start: 09-05-2024 Walking distance 6 minutes [facility] Start: 08-23-2024 Patient referral [facility] Work Phone: Start: 06-01-2024 Patient referral [facility] Work Phone: Start: 05-24-2024 Patient discharge [facility] Start: 05-21-2024 Provision of activity privileges [facility] Start: 05-20-2024 [facility] Start: 05-19-2024 Respiratory secretion precautions [facility] Start: 05-19-2024 Ambulation without limitation [facility] Start: 05-19-2024 Assessment of risk of venous thromboembolism [facility] Start: 05-19-2024 Inhalation therapy procedure [facility] Start: 05-19-2024 Insertion of catheter into peripheral vein [facility] Start: 05-19-2024 Oxygen therapy [facility] Start: 05-19-2024 Providing care according to standard [facility] Start: 05-19-2024 Referral to service [facility] Start: 05-19-2024 [facility] Start: 05-19-2024 Following clinical pathway protocol [facility] Start: 05-19-2024 Admission procedure [facility] Start: 05-19-2024 Patient referral to dietitian [facility] Start: 12-31-2022 Patient referral [facility] Work Phone: CT Chest WO contrast [facility] CT Chest WO contrast [facility] MG Breast - bilatera l Screening [facility] MG Breast - bilatera l Screening [facility] Patient Education ED Influenza (Adult) [facility] Work Phone: Patient referral [facility] Work Phone: XR Chest PA and Lateral [facility] Immunizations Immunization Date Immunization Notes Care Provider Mayte simms 03-18-2023 influenza, injectabl e, quadrivalent, preservative free Dr. Nicky Covarrubias MD Work Phone: [facility] 02-20-2023 Pfizer Covid-19 (Comirnaty) Dr. Nicky Covarrubias MD Work Phone: [facility] 01-30-2021 Covid (Pfizer) Dr. Nicky Covarrubias MD Work Phone: [facility] 07-25-2020 Covid (Pfizer) Dr. Nicky Covarrubias Work Phone: [facility] 07-04-2020 Covid (Pfizer) Dr. Nicky Covarrubias Work Phone: [facility] 01-16-2013 influenza, injectabl e, quadrivalent, preservative free Dr. Nicky Covarrubias MD Work Phone: [facility] 04-19-2006 diphtheria, tetanus toxoids and acellular pertussis vaccine Dr. Nicky Covarrubias MD Work Phone: [facility] Payers Date Payer Category Payer Unknown 2024 Unknown [id number] 2024 Self-pay [id number] 2024 Unknown [id number] 2014 Unknown [id number] 2014 Unknown [id number] Unknown [id number] 2.16.8 40.1.582761.3.579.2.462 Unknown [id number] 2.16.8 40.1.488654.3.579.2.462 Unknown [id number] 2.16.8 40.1.020621.3.579.2.462 Unknown [id number] 2.16.8 40.1.892773.3.579.2.462 Unknown [id number] 2.16.8 40.1.946482.3.579.2.462 Unknown [id number] 2.16.8 40.1.394909.3.579.2.462 Unknown [id number] 2.16.8 40.1.499975.3.579.2.462 Unknown [id number] 2.16.8 40.1.404111.3.579.2.462 Unknown [id number] 2.16.8 40.1.757292.3.579.2.462 Unknown [id number] 2.16.8 40.1.248407.3.579.2.462 Unknown [id number] 2.16.8 40.1.994273.3.579.2.462 Unknown [id number] 2.16.8 40.1.569026.3.579.2.462 Unknown [id number] 2.16.8 40.1.047301.3.579.2.462 Unknown [id number] 2.16.8 40.1.289378.3.579.2.462 Unknown [id number] 2.16.8 40.1.043691.3.579.2.462 Unknown [id number] 2.16.8 40.1.993776.3.579.2.462 Unknown [id number] 2.16.8 40.1.215270.3.579.2.462 Unknown [id number] 2.16.8 40.1.317457.3.579.2.462 Unknown [id number] 2.16.8 40.1.044222.3.579.2.462 Unknown [id number] 2.16.8 40.1.978679.3.579.2.462 Unknown [id number] 2.16.8 40.1.944855.3.579.2.462 Unknown [id number] 2.16.8 40.1.645119.3.579.2.462 Unknown [id number] 2.16.8 40.1.108008.3.579.2.462 Unknown [id number] 2.16.8 40.1.953266.3.579.2.462 Unknown [id number] 2.16.8 40.1.029077.3.579.2.462 Unknown [id number] 2.16.8 40.1.457311.3.579.2.462 Unknown [id number] 2.16.8 40.1.187206.3.579.2.462 Unknown [id number] 2.16.8 40.1.850196.3.579.2.462 Unknown [id number] 2.16.8 40.1.265457.3.579.2.462 Unknown [id number] 2.16.8 40.1.681364.3.579.2.462 Unknown [id number] 2.16.8 40.1.049086.3.579.2.462 Unknown [id number] 2.16.8 40.1.312374.3.579.2.462 Unknown [id number] 2.16.8 40.1.168794.3.579.2.462 Unknown [id number] 2.16.8 40.1.022696.3.579.2.462 Unknown [id number] 2.16.8 40.1.325881.3.579.2.462 Unknown [id number] 2.16.8 40.1.151443.3.579.2.462 Unknown [id number] 2.16.8 40.1.796193.3.579.2.462 Unknown [id number] 2.16.8 40.1.843914.3.579.2.462 Unknown [id number] 2.16.8 40.1.057792.3.579.2.462 Unknown [id number] 2.16.8 40.1.841691.3.579.2.462 Unknown [id number] 2.16.8 40.1.185788.3.579.2.462 Unknown [id number] 2.16.8 40.1.252545.3.579.2.462 Unknown [id number] 2.16.8 40.1.489957.3.579.2.462 Social History Date Type Detail Facility Start: 04-24-2021 End: 03-31-2023 Tobacco smoking status WAIS Unknown if ever smoked [facility] Start: 08-21-2020 Non-smoker [facility] Start: 1965 Sex Assigned At Female [facility] Start: 05-19-2024 End: 02-07-2025 Tobacco smoking status NHIS Ex-smoker (finding) [facility] Start: 07-05-2024 End: 08-14-2024 Sex Female (finding) [facility] Sex Female [facility] Goals Date Patient Goal Desired Activity /State Functional Status Date Assessment Result Facility 05-24-2024 Functional status Ambulates [facility] Work Phone: 05-22-2024 Functional status None [facility] Work Phone: Mental Status Date Assessment Result Facility 05-24-2024 Cognitive function Voice/Name [facility] Work Phone: Clinical Notes 04-27-2024 to 02-07-2025 Note Date & Type Note Facility 02-07-2025 Progress note [facility] 01-16-2025 Progress note [facility] 01-15-2025 Progress note [facility] 11-03-2024 Evaluation note Diagnosis Onset Date Resolution Solitary pulmonary nodule acute November 03, 2024 11:12am Asthma-COPD overlap syndrome chronic November 03, 2024 11:12am Chronic cough chronic November 03, 2024 11:12am MARIELLA (obstructive sleep apnea) chronic November 03, 2024 11:12am Osteoarthritis acute December 27, 2024 2:00pm Generalized anxiety disorder chronic December 27, 2024 2:00pm Hypertension chronic December 272024 2:00pm Migraines chronic December 2:00pm Rheumatoid arthritis chronic Dec 2:00pm Morbid obesity due to excess calories acute January 01, 2025 1:24pm Osteoarthritis of right knee acute January 01, 2025 1:24pm Right hip pain acute January 01, 2025 1:24pm Cellulitis of right upper arm acute January 15, 2025 8:58am Hematoma of right upper extremity acute January 15, 2025 8:58am Solitary pulmonary nodule acute January 16, 2025 10:57am Asthma-COPD overlap syndrome chronic January 16, 2025 10:57am Chronic cough chronic December 202024 10:57am MARIELLA (obstructive sleep apnea) chronic January 16, 2025 10:57am Encounter for routine gynecological examination noneactive February 07 8:56am [facility] Work Phone: 1(942) 266-232707-16-2025 Radiology Diagnostic study note [facility] Imaging Services [address] [place] [address] Chest without Contrast MR#: [id number] Acct: [id number] Name: HONG KHAN Rep #: [id number] : 1965 F 58 From: Harmeet Hernández MD PCP: Dr. Nicky Covarrubias MD Status: R EG CLI Study:Chest without Contrast Date of Exam: 10/31/24 Exam# [id number] Ordering Dr: Zeinab Monique ENGINEERING SPECIALIST TECHNICIAN-C PROCEDURE: CHEST WITHOUT CONTRAST 10/31/2024 REASON FOR EXAM: 7MM RLL NODULE, HISTORY OF SMOKING TECHNIQUE: Chest CT without contrast. Coronal and Sagittal reconstruction series were provided. One or more dose reduction techniques were used (e.g., Automated exposure control, adjustment of the mA and/or kV according to patient size, use of iterative reconstruction technique RADIATION DOSE SUMMARY: CTDlvol: 20.50 mGy DLP: 750.19 mGycm COMPARISON: Prior CT scan of the chest dated May 19, 2024. FINDINGS: Hardware: None Lymph nodes: Small benign-appearing bilateral axillary lymph nodes. No significant mediastinal lymph nodes are seen. Heart and Vasculature: The heart is nonenlarged. The pericardium is unremarkable. Coronary Artery Calcifications: Present Lungs and Airways: Slight decrease in size of the nodule in the peripheral lateral aspect of the right lower lobe as seen on axial image number 77 it presently measures 6 mm. There is evidence of volume loss and atelectasis in the posterior aspect of the lingula segment of the left upper lobe abutting the left major fissure. Pleura: No evidence of pleural effusion. Upper Abdomen: Unremarkable Bones: Degenerative changes of the thoracic spine. CT/Chest without Contrast IMPRESSION: Coronary artery calcification (CAC) is is present Interval slight decrease in size of the previously seen nodule in the lateral aspect of the right lower lobe presently measuring 6 mm. Atelectasis and volume loss in the posterior aspect of the lingular segment of the left upper lobe abutting the left major fissure. Reading Location: [place] [address] CC: Dr. 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 Imaging Services [address] [place] [address] [id number] Chest PA and Lateral MR#: [id number] Acct: [id number] Name: HONG KHAN Rep #: [id number] : 1965 F 58 From: Caio Gonzalez MD PCP: Dr. Nicky Covarrubias MD Status: R EG CLI Study:Chest PA and Lateral Date of Exam: 09/29/24 Exam# [id number] Ordering Dr: Katey Page ENGINEERING SPECIALIST TECHNICIAN-Alejandro PROCEDURE: CHEST PA AND LATERAL 09/29/2024 REASON FOR EXAM: COUGH, COPD EXACERBATION TECHNIQUE: Frontal and lateral views of the chest. COMPARISON: PA and lateral chest x-ray 05/19/2024. RAD/Chest PA and Lateral IMPRESSION: Lungs appear clear of acute disease, and unchanged. No pleural effusion or pneumothorax is noted. A partially calcified aorta is seen. No evidence of cardiomegaly. Mild thoracic spine degenerative changes are seen. No evidence of acute osseous change. Reading Location: [address] CC: ENGINEERING SPECIALIST TECHNICIAN-C Katey Page; Dr. 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 [facility]06-12-2025 Evaluation note* Diagnosis Onset Date Resolution Status Admit Date COPD with exacerbation acute Ju 2024 9:59am Solitary pulmonary nodule acute November 03, 2024 11:12am Asthma-COPD overlap syndrome chronic November 03, 2024 11:12am Chronic cough chronic November 03, 2024 11:12am MARIELLA (obstructive sleep apnea) chroni c November 03, 2024 11:12am [employer] [facility] Work Phone: 1(234) 533-990906-12-2025 Evaluation note* Diagnosis Onset Date Resolution Status Admit Date COPD with exacerbation acute Ju 2024 9:59am Solitary pulmonary nodule acute November 03, 2024 11:12am Asthma-COPD overlap syndrome chronic November 03, 2024 11:12am Chronic cough chronic November 03, 2024 11:12am MARIELLA (obstructive sleep apnea) chroni c November 03, 2024 11:12am Osteoarthritis acute December 27, 2024 2:00pm Generalized anxiety disorder chronic December 27, 2024 2:00pm Hypertension chronic December 272024 2:00pm Migraines chronic December 2:00pm Rheumatoid arthritis chronic Dec 2:00pm [employer] [facility] Work Phone: 1(131) 474-716306-12-2025 Evaluation note* Diagnosis Onset Date Resolution Status Admit Date COPD with exacerbation acute 2024 9:59am Solitary pulmonary nodule acute November 03, 2024 11:12am Asthma-COPD overlap syndrome chronic November 03, 2024 11:12am Chronic cough chronic November 03, 2024 11:12am MARIELLA (obstructive sleep apnea) chroni c November 03, 2024 11:12am Osteoarthritis acute December 27, 2024 2:00pm Generalized anxiety disorder chronic December 27, 2024 2:00pm Hypertension chronic December 272024 2:00pm Migraines chronic December 2:00pm Rheumatoid arthritis chronic Dec 2:00pm Osteoarthritis of right knee acute January 01, 2025 1:24pm Right hip pain acute January 01, 2025 1:24pm [employer] [facility] Work Phone: 1(711) 788-907006-12-2025 Evaluation note* Diagnosis Onset Date Resolution Status Admit Date COPD with exacerbation acute 2024 9:59am Solitary pulmonary nodule acute November 03, 2024 11:12am Asthma-COPD overlap syndrome chronic November 03, 2024 11:12am Chronic cough chronic November 03, 2024 11:12am MARIELLA (obstructive sleep apnea) chroni c November 03, 2024 11:12am Osteoarthritis acute December 27, 2024 2:00pm Generalized anxiety disorder December 27, 2024 2:00pm Hypertension December 272024 2:00pm Migraines december 2:00pm Rheumatoid arthritis chronic Dec 2:00pm Morbid obesity due to excess calories January 01, 2025 1:24pm Osteoarthritis of right knee acute January 01, 2025 1:24pm Right hip pain acute January 01, 2025 1:24pm Cellulitis of right upper arm acute January 15, 2025 8:58am Hematoma of right upper extremity acute January 15, 2025 8:58am [facility] Work Phone: 1(901) 102-931306-12-2025 Evaluation note* Diagnosis Onset Date Resolution Status Admit Date COPD with exacerbation acute 2024 9:59am Solitary pulmonary nodule acute November 03, 2024 11:12am Asthma-COPD overlap syndrome chronic November 03, 2024 11:12am Chronic cough November 03, 2024 11:12am MARIELLA (obstructive sleep apnea) chroni c November 03, 2024 11:12am Osteoarthritis acute December 27, 2024 2:00pm Generalized anxiety disorder December 27, 2024 2:00pm Hypertension December 272024 2:00pm Migraines december 2:00pm Rheumatoid arthritis chronic Dec 2:00pm Morbid obesity due to excess calories January 01, 2025 1:24pm Osteoarthritis of right knee acute January 01, 2025 1:24pm Right hip pain acute January 01, 2025 1:24pm Cellulitis of right upper arm acute January 15, 2025 8:58am Hematoma of right upper extremity acute January 15, 2025 8:58am Solitary pulmonary nodule acute January 16, 2025 10:57am Asthma-COPD overlap syndrome chronic January 16, 2025 10:57am Chronic cough chronic December 202024 10:57am MARIELLA (obstructive sleep apnea) chroni c January 16, 2025 10:57am [facility] Work Phone: 1(820) 699-136806-12-2025 [facility] [address] [place] [address] [place] [address] OFFICE VISIT Date of Service: 09/28/24 MR#: [id number] Acct: [id number] Name: HONG KHAN Rep #: [id number] : 1965 Provider: TETO Page Age/Sex: 58/F [place] [facility] Status: Signed Intake Vital Signs 09/05/24 12:53 09/28/24 10:06 Height 5 ft 6 in 5 ft 6 in Weight: 300 lb 295 lb BMI 47.6 BP 132/76 H Blood Pressure Location Lt brachial Position Sitting Respiration 20 H Pulse 97 119 H Pulse Source Monitor Temp 97.8 F Temp Source Temporal Pulse Oximetry (%) 96 92 Oxygen Delivery Method room air Intake Visit Reasons: ACUTE COPD FLARE UP Chief Complaint: ACUTE COPD FLARE UP Is patient in pain?: No Allergies hydrocodone bitartrate (From Vicodin) Allergy (Verified 09/28/24 10:07) Rash erythromycin base Adverse Reaction (Verified 09/28/24 10:07) Vomiting Penicillins (PCN) Adverse Reaction (Verified 09/28/24 10:07) Upset Stomach Medications ?Medication ?Instructions ?Recorded ?Confirmed ?Type loratadine 10 mg tablet (Claritin) 10 mg PO DAILY lang estion 05/23/20 09/28/24 History melatonin 5 mg capsule 5 mg PO QHS sleep 05/23/20 0 09/28/24 History hydroxychloroquine 200 mg tablet 200 mg PO BID #60 tab s 06/03/22 09/28/24 Rx (Plaquenil) folic acid 1 mg tablet 1 mg PO BID supplement #90 t abs 06/15/22 09/28/24 Rx methotrexate sodium 2.5 mg tablet 20 mg PO QWEEK RA 09/28/24 History rizatriptan 10 mg tablet 10 mg PO ONCE PRN migraine h eadache 12/23/23 09/28/24 History amlodipine 5 mg tablet 5 mg PO DAILY blood pressure #90 02/24/25 06/12/25 Rx TABLETS sertraline 50 mg tablet 50 mg PO DAILY mental health #90 06/12/24 09/28/24 Rx TABLETS albuterol sulfate 90 mcg/actuation 2 puff inhalation Q 6H PRN 06/21/24 09/28/24 Rx aerosol inhaler shortness of breath or wheez ing #8.5 grams fluticasone fur. 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 she states that she began having a bad cough Wednesday and todayhas shortness of breath and congestedsounding cough/lung sounds. pt denies fever and chills. Complains of yellow-colored sputum which is new for her. Denies any known exposure to triggers for respiratory symptoms. ROS Const Constitutional: No body ache, chills, excessive sweating, fatigue, fever(s), frequent falls, headache(s), snoring, weight change, sleep problems, abnormal sleep pattern or change in appetite Eyes Eyes: No blurry vision, change in vision, eye pain or Light sensitivity ENT ENT: No abnormal hearing, ear or mastoid pain, tinnitus, nasal congestion, headache(s), neck pain or sore throat Resp Respiratory: Positive for cough, change in phlegm color, shortness of breath andwheezing; No snoring Cardio Cardiology: No chest pain at rest, chest pain with exertion, excessive sweating,shortness of breath, dyspnea on exertion, lightheadedness, orthopnea or palpitations Gastro GI: No abdominal pain, change in bowel habits, constipation, cramping, diarrhea,nausea/dyspepsia orvomiting Genitourinary-Female: No burning urination, painful urination, urinary incontinence, urinary frequency, abnormal vaginal bleeding or pelvic pain Musc Musculoskeletal: No abnormal gait, joint pain, back pain, limited range of motion, neck pain, numbness or tingling Skin Skin: No dry skin, redness, lesions, itchy eyes, rash or wounds Neuro Neurology: No abnormal gait, abnormal hearing, frequent falls, headache(s), memory loss, numbness or tingling Psych Psychiatric: No abnormal sleep pattern, No anxiety, No change in appetite, No irritability, No memory loss and No Thoughts of harming yourself/Others Endo Endocrine: No cold intolerance, excessive sweating, fatigue, flushing, heat intolerance, increased thirst/drinking, increased hunger or weight change Aller/Imm Allergy/Immunologic: Positive for wheezing; No itchy eyes, seasonal allergy symptoms or hives Bartolo/Lymp Hematologic/Lymphatic: No easy bleeding, easy bruising, enlarged lymph nodes or other Exam Const General: cooperative, no acute distress, well groomed and well hydrated Nutritional Appearance: well nourished Orientation: alert and oriented x3 HENOR Head: normal to inspection Ears: hearing grossly normal bilaterally Nose: external nose normal and nares normal Face and sinus: normal facial exam Mouth: oral mucosae normal, lip normal and moist mucous membranes Eyes General: appearance normal, both eyes and all related structures Pupils: PERRL Neck Neck: normal visual inspection, no lymphadenopathy and trachea midline Thyroid: thyroid normal Carotids: normal carotid upstroke and no bruits Lymphatic: no lymphadenopathy noted Chest Chest palpation & inspection: normal inspection of the chest Resp Effort & Inspection: not able to speak in complete sentences, symmetric chest movement and cough Auscultation: Left: Diminished Base and Rhonchi (LLL) Cardio Palpation: normal PMI Rate: regular rate Rhythm: regular rhythm Heart Sounds: S1 normal and S2 normal GI Inspection: normal to inspection Musc Musculoskeletal: No joint tenderness, joint redness or muscle weakness Skin General: no rashes or lesions noted Lesions: no lesions Rashes: no rashes Trauma: no lacerations or abrasions Wounds: no wounds Neuro General: patient alert and patient oriented x3 Speech: speech normal Motor: muscle tone normal throughout Extrem General: normal to inspection and capillary refill normal Psych Appearance: grossly normal and well kempt Coding Level of Care Code Established Pt Off vis,est,level 3 Patient Type Established History Problem Focused Exam Problem Focused Medical Decision Making Low Complexity Diagnoses COPD with exacerbation J44.1 Time Spent (min) 35 Assessment and Plan Assessment and Plan (1) COPD with exacerbation: Status: Acute Comment: acute exacerbation of chronic diagnosis Plan: Patient with a history of COPD. Patient states usually her albuterol rescue inhaler controls her symptoms as well as the Trelegy. With symptoms over the last 2 days worsening including shortness of breath and productive sputum tingedyellow will prescribe a course of prednisone for inflammation and Z ithromax due to history of COPD with discolored sputum and correlating lung sounds. Will also orderchest x-ray. Discussed with patient that if not feeling better by tomorrow to please get chest x-ray completed to determine if further treatment may be needed. Patient is agreeable with plan and to follow-up as needed and continue using albuterol as needed. Patient does not have a nebulizer at homemay consider in the future patient to have a nebulizer as may be more beneficialto have nebulizer treatments versus inhaler. Orders: Orders Chest PA and Lateral Today J44.1 - Chronic obstructive pulmonary disease with (acute) exacerbation Medications: New azithromycin (Zithromax) For 250 mg dose pack: take 500 mg today (day 1), then 250 mg for 4 days (days 2-5) orally daily; 6 tabs 0RF Refilled prednisone 40 mg (2 x 20 mg) PO QDAY 10 tabs 0RF J44.1 - Chronic obstructive pulmonary disease with(acute) exacerbation Plan Details Follow Up: as needed Clinical Quality Measures Falls Risk Screening/Assistive Devices Have you fallen in the past year?: No 09/28/24 1035 er ENGINEERING SPECIALIST TECHNICIAN-C> Date _ Katey IRENE Cosigner Signature: Date (if applicable) CC: ~ [facility]06-12-2025 Progress note Author Katey Page [facility] Note Date/Time September 28, 2024 10:3 5am [facility] [address] [place], [place] [id number] OFFICE VISIT Date of Service: 09/28/24 MR#: [id number] Acct: [id number] Name: HONG KHAN Rep #: [id number] : 1965 Provider: TETO Page Age/Sex: 58/F [place] [facility] Status: Signed Intake Vital Signs 09/05/24 12:53 09/28/24 10:06 Height 5 ft 6 in 5 ft 6 in Weight: 300 lb 295 lb BMI 47.6 BP 132/76 H Blood Pressure Location Lt brachial Position Sitting Respiration 20 H Pulse 97 119 H Pulse Source Monitor Temp 97.8 F Temp Source Temporal Pulse Oximetry (%) 96 92 Oxygen Delivery Method room air Intake Visit Reasons: ACUTE COPD FLARE UP Chief Complaint: ACUTE COPD FLARE UP Is patient in pain?: No Allergies hydrocodone bitartrate (From Vicodin) Allergy (Verified 09/28/24 10:07) Rash erythromycin base Adverse Reaction (Verified 09/28/24 10:07) Vomiting Penicillins (PCN) Adverse Reaction (Verified 09/28/24 10:07) Upset Stomach Medications ?Medication ?Instructions ?Recorded ?Confirmed ?Type loratadine 10 mg tablet (Claritin) 10 mg PO DAILY lang estion 05/23/20 09/28/24 History melatonin 5 mg capsule 5 mg PO QHS sleep 05/23/20 0 09/28/24 History hydroxychloroquine 200 mg tablet 200 mg PO BID #60 tab s 06/03/22 09/28/24 Rx (Plaquenil) folic acid 1 mg tablet 1 mg PO BID supplement #90 t abs 06/15/22 09/28/24 Rx methotrexate sodium 2.5 mg tablet 20 mg PO QWEEK RA 09/28/24 History rizatriptan 10 mg tablet 10 mg PO ONCE PRN migraine h eadache 12/23/23 09/28/24 History amlodipine 5 mg tablet 5 mg PO DAILY blood pressure #90 06/12/24 09/28/24 Rx TABLETS sertraline 50 mg tablet 50 mg PO DAILY mental health #90 06/12/24 09/28/24 Rx TABLETS albuterol sulfate 90 mcg/actuation 2 puff inhalation Q 6H PRN 06/21/24 09/28/24 Rx aerosol inhaler shortness of breath or wheez ing #8.5 grams fluticasone fur. 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 she states that she began having a bad cough Wednesday and today has shortness of breath and congestedsounding cough/lung sounds. pt denies fever and chills. Complains of yellow-colored sputum which is new for her. Denies any known exposure to triggers for respiratory symptoms. ROS Const Constitutional: No body ache, chills, excessive sweating, fatigue, fever(s), frequent falls, headache(s), snoring, weight change, sleep problems, abnormal sleep pattern or change in appetite Eyes Eyes: No blurry vision, change in vision, eye pain or Light sensitivity ENT ENT: No abnormal hearing, ear or mastoid pain, tinnitus, nasal congestion, headache(s), neck pain or sore throat Resp Respiratory: Positive for cough, change in phlegm color, shortness of breath andwheezing; No snoring Cardio Cardiology: No chest pain at rest, chest pain with exertion, excessive sweating,shortness of breath, dyspnea on exertion, lightheadedness, orthopnea or palpitations Gastro GI: No abdominal pain, change in bowel habits, constipation, cramping, diarrhea,nausea/dyspepsia or vomiting Genitourinary-Female: No burning urination, painful urination, urinary incontinence, urinary frequency, abnormal vaginal bleeding or pelvic pain Musc Musculoskeletal: No abnormal gait, joint pain, back pain, limited range of motion, neck pain, numbness or tingling Skin Skin: No dry skin, redness, lesions, itchy eyes, rash or wounds Neuro Neurology: No abnormal gait, abnormal hearing, frequent falls, headache(s), memory loss, numbness or tingling Psych Psychiatric: No abnormal sleep pattern, No anxiety, No change in appetite, No irritability, No memory loss and No Thoughts of harming yourself/Others Endo Endocrine: No cold intolerance, excessive sweating, fatigue, flushing, heat intolerance, increased thirst/drinking, increased hunger or weight change Aller/Imm Allergy/Immunologic: Positive for wheezing; No itchy eyes, seasonal allergy symptoms or hives Bartolo/Lymp Hematologic/Lymphatic: No easy bleeding, easy bruising, enlarged lymph nodes or other Exam Const General: cooperative, no acute distress, well groomed and well hydrated Nutritional Appearance: well nourished Orientation: alert and oriented x3 HENOR Head: normal to inspection Ears: hearing grossly normal bilaterally Nose: external nose normal and nares normal Face and sinus: normal facial exam Mouth: oral mucosae normal, lip normal and moist mucous membranes Eyes General: appearance normal, both eyes and all related structures Pupils: PERRL Neck Neck: normal visual inspection, no lymphadenopathy and trachea midline Thyroid: thyroid normal Carotids: normal carotid upstroke and no bruits Lymphatic: no lymphadenopathy noted Chest Chest palpation & inspection: normal inspection of the chest Resp Effort & Inspection: not able to speak in complete sentences, symmetric chest movement and cough Auscultation: Left: Diminished Base and Rhonchi (LLL) Cardio Palpation: normal PMI Rate: regular rate Rhythm: regular rhythm Heart Sounds: S1 normal and S2 normal GI Inspection: normal to inspection Musc Musculoskeletal: No joint tenderness, joint redness or muscle weakness Skin General: no rashes or lesions noted Lesions: no lesions Rashes: no rashes Trauma: no lacerations or abrasions Wounds: no wounds Neuro General: patient alert and patient oriented x3 Speech: speech normal Motor: muscle tone normal throughout Extrem General: normal to inspection and capillary refill normal Psych Appearance: grossly normal and well kempt Coding Level of Care Code Established Pt Off vis,est,level 3 Patient Type Established History Problem Focused Exam Problem Focused Medical Decision Making Low Complexity Diagnoses COPD with exacerbation J44.1 Time Spent (min) 35 Assessment and Plan Assessment and Plan (1) COPD with exacerbation: Status: Acute Comment: acute exacerbation of chronic diagnosis Plan: Patient with a history of COPD. Patient states usually her albuterol rescue inhaler controls her symptoms as well as the Trelegy. With symptoms over the last 2 days worsening including shortness of breath and productive sputum tingedyellow will prescribe a course of prednisone for inflammation and Zithromax due to history of COPD with discolored sputum and correlating lung sounds. Will also order chest x-ray. Discussed with patient that if not feeling better by tomorrow to please get chest x-ray completed to determine if further treatment may be needed. Patient is agreeable with plan and to follow-up as needed and continue using albuterol as needed. Patient does not have a nebulizer at home may consider in the future patient to have a nebulizer as may be more beneficialto have nebulizer treatments versus inhaler. Orders: Orders Chest PA and Lateral Today J44.1 - Chronic obstructive pulmonary disease with (acute) exacerbation Medications: New azithromycin (Zithromax) For 250 mg dose pack: take 500 mg today (day 1), then 250 mg for 4 days (days 2-5) orally daily; 6 tabs 0RF Refilled prednisone 40 mg (2 x 20 mg) PO QDAY 10 tabs 0RF J44.1 - Chronic obstructive pulmonary disease with (acute) exacerbation Plan Details Follow Up: as needed Clinical Quality Measures Falls Risk Screening/Assistive Devices Have you fallen in the past year?: No 09/28/24 1035 <Electronically signed by Katey IRENE> Date _ Katey Camilo Jason Signature: Date (if applicable) CC: ~ [facility] Work Phone: 1(348) 758-188905-26-2025 Procedure notey [facility] [address] [place] [address] MR#: [id number] Acct: [id number] Name: HONG KHAN Rep #:[id number] : 1965 58 From: Bryce Lo DO Referring Dr: Zeinab Monique ENGINEERING SPECIALIST TECHNICIANLeandroC Status: REG CLI Location: PSN Date: Sex: F C PSN 6 Minute Walk Test 6 Minute Walk Test 6 Minute Walk Test: 6 Minute Walk Test PSN:6-Minute Walk Test Start: 09/05/24 12:53 Freq: Status: Active Protocol: RESP.6MINW Document 09/05/24 12:53 SFENTON (Rec: 09/05/24 12:55 SFENTON [id number]) 6 Minute Walk Test Date Performed 09/05/24 [...] Pretesting oxygen saturation was noted to be 94%on room air. With ambulation, the jose oxygen saturation was 91%. There was no significant exertional oxygen desaturation. Recommendations Recommendations: There is no indication for the use of supplemental oxygen at this time. 09/11/24719 O> Date _ Bryce Lo DO CC: ~ Date Dictated: 09/11/24718 Date Transcribed: 09/11/24718 Utility Aircrewman: Dr. Bryce Lo DO Signed [facility]04-15-2025 Evaluation note* Diagnosis Onset Date Resolution Status Admit Date Solitary pulmonary nodule acute August 01, 2024 10:41am Asthma-COPD overlap syndrome chronic August 01, 2024 10:41am Chronic cough chronic August 01, 2024 10:41am Health care maintenance acute [facility] 2024 2:33pm COPD (chronic obstructive pulmonary disease) chronic August 23, 2024 2:33pm Generalized anxiety disorder chronic August 23, 2024 2:33pm Hypertension chronic August 23 2:33pm MARIELLA (obstructive sleep apnea) chroni c August 23, 2024 2:33pm COPD with exacerbation acute 2024 9:59am [facility] Work Phone: 1(193) 637-608704-15-2025 Evaluation note* Diagnosis Onset Date Resolution Status Admit Date Solitary pulmonary nodule acute August 01, 2024 10:41am Asthma-COPD overlap syndrome chronic August 01, 2024 10:41am Chronic cough chronic August 01, 2024 10:41am Health care maintenance acute [facility] 2024 2:33pm COPD (chronic obstructive pulmonary disease) chronic August 23, 2024 2:33pm Generalized anxiety disorder chronic August 23, 2024 2:33pm Hypertension chronic August 23 2:33pm MARIELLA (obstructive sleep apnea) chroni c August 23, 2024 2:33pm COPD with exacerbation acute [facility] 2024 9:59am Solitary pulmonary nodule acute November 03, 2024 11:12am Asthma-COPD overlap syndrome chronic November 03, 2024 11:12am Chronic cough chronic November 03, 2024 11:12am [facility] Work Phone: 1(832) 245-656804-15-2025 Evaluation note* Diagnosis Onset Date Resolution Status Admit Date Solitary pulmonary nodule acute August 01, 2024 10:41am Asthma-COPD overlap syndrome chronic August 01, 2024 10:41am Chronic cough chronic August 01, 2024 10:41am Health care maintenance acute [facility] 2024 2:33pm COPD (chronic obstructive pulmonary disease) chronic August 23, 2024 2:33pm Generalized anxiety disorder chronic August 23, 2024 2:33pm Hypertension chronic August 23 2:33pm MARIELLA (obstructive sleep apnea) chroni c August 23, 2024 2:33pm COPD with exacerbation acute [facility] 2024 9:59am Solitary pulmonary nodule acute November 03, 2024 11:12am Asthma-COPD overlap syndrome chronic November 03, 2024 11:12am Chronic cough chronic November 03, 2024 11:12am MARIELLA (obstructive sleep apnea) chroni c November 03, 2024 11:12am [facility] Work Phone: 1(927) 646-339802-27-2025 Evaluation note* Diagnosis Onset Date Resolution Status Admit Date Bronchitis acute June 15, 2024 12:23pm Solitary pulmonary nodule acute August 01, 2024 10:41am Asthma-COPD overlap syndrome chronic August 01, 2024 10:41am Chronic cough chronic August 01, 2024 10:41am Health care maintenance acute [facility] 2024 2:33pm COPD (chronic obstructive pulmonary disease) chronic August 23, 2024 2:33pm Generalized anxiety disorder chronic August 23, 2024 2:33pm Hypertension chronic August 23 2:33pm MARIELLA (obstructive sleep apnea) chroni c August 23, 2024 2:33pm COPD with exacerbation acute [facility] 2024 9:59am [facility] Work Phone: 1(943) 770-426702-13-2025 Evaluation note* Diagnosis Onset Date Resolution Status Admit Date Bronchitis acute June 01, 2024 5:51pm Fatigue acute June 01, 2024 5:51pm History of smoking 30 or mor e pack years acute June 01, 2 025 5:51pm Influenza acute June 01, 2024 5:51pm [...] obstructive pulmonary disease) chronic August 23, 2024 2:33pm Generalized anxiety disorder chronic August 23, 2024 2:33pm Hypertension chronic August 23 2:33pm MARIELLA (obstructive sleep apnea) chroni c August 23, 2024 2:33pm COPD with exacerbation acute [place] 2024 9:59am [facility] Work Phone: 1(615) 706-2030325511-00-4956 [facility]01-31-2025 Evaluation note* Diagnosis Onset Date Resolution Status Admit Date Bronchitis acute May 19, 2024 6:08pm Chronic [...] smoking 30 or more pack years acute June 01, 2 025 5:51pm Influenza acute June 01, 2024 5:51pm Chronic cough chronic June 012024 5:51pm Hypertension chronic May 5:51pm Rheumatoid arthritis chronic 2024 5:51pm Bronchitis acute June 15, 2024 12:23pm Solitary pulmonary nodule acute August 01, 2024 10:41am Asthma-COPD overlap syndrome chronic August 01, 2024 10:41am Chronic cough chronic August 01, 2024 10:41am Health care maintenance acute [facility] 2024 2:33pm COPD (chronic obstructive pulmonary disease) chronic August 23, 2024 2:33pm Generalized anxiety disorder chronic August 23, 2024 2:33pm Hypertension chronic August 23 2:33pm MARIELLA (obstructive sleep apnea) chronic August 23, 2024 2: 33pm [facility] Work Phone: 1(647) 172-974301-09-2025 Evaluation note* Diagnosis Onset Date Resolution Status Admit Date Bronchitis acute April 27, 2 025 2:42pm Generalized anxiety disorder chronic April 27, 2024 2:42pm Hypertension chronic April 27, 2024 2:42pm [...] smoking 30 or more pack years acute June 01, 2 025 5:51pm Influenza acute June 01, 2024 5:51pm Chronic cough chronic June 012024 5:51pm Hypertension chronic May 5:51pm Rheumatoid arthritis chronic 2024 5:51pm Bronchitis acute June 15, 2024 12:23pm [facility] Work Phone: 1([phone]) 146-651501-09-2025 Evaluation note* Diagnosis Onset Date Resolution Status Admit Date Bronchitis acute April 27, 2 025 2:42pm Generalized anxiety disorder chronic April 27, 2024 2:42pm Hypertension chronic April 27, 2024 2:42pm [...] smoking 30 or more pack years acute June 01 5:51pm Influenza acute June 01, 2024 5:51pm Chronic cough chronic June 012024 5:51pm Hypertension chronic May 5:51pm Rheumatoid arthritis chronic Febr [id number] 5:51pm Bronchitis acute June 15, 2024 12:23pm Solitary pulmonary nodule acute August 01, 2024 10:41am Asthma-COPD overlap syndrome chronic August 01, 2024 10:41am Chronic cough chronic August 01, 2024 10:41am [facility] Work Phone: Evaluation note* Diagnosis Onset Date Resolution Status History of smoking 30 or more pack years acute Morbid obesity acute Hypertension [facility] Work Phone: Evaluation note* Diagnosis Onset Date Resolution Status Morbid obesity acute Hypertension chronic Rheumatoid arthritis chronic Anxiety noneactive [facility] Work Phone: Evaluation note* Diagnosis Onset Date Resolution Status Generalized anxiety disorder chronic Generalized anxiety disorder chronic Hypertension chronic Migraines chronic Rheumatoid arthritis [facility] Work Phone: Evaluation note* Diagnosis Onset Date Resolution Status Generalized anxiety disorder chronic Hypertension chronic Migraines chronic Rheumatoid arthritis chronic Hypertension chronic Migraines chronic Rheumatoid arthritis [facility] Work Phone: Evaluation note* Diagnosis Onset Date Resolution Status Pneumonia acute Acute bronchitis acute Generalized anxiety disorder chronic Hypertension chronic Migraines chronic Generalized anxiety disorder chronic Hypertension chronic Migraines [facility] Work Phone: Hospital Discharge instructionsAmbulatory Orders* Physical Therapy Referral Location: None Selected [facility] Work Phone: Progress note Author Alan Nguyen [facility] Note Date/Time January 15, 2025 9:37am [facility] [address], [address] [place] [address] OFFICE VISIT Date of Service: 01/15/25 MR#: [id number] Acct: [id number] Name: HONG KHAN Rep #: [id number] : 1965 Provider: SHARONA Burns Age/Sex: 59/F [place] [facility] Status: Signed Intake Vital Signs 01/01/25 13:43 01/15/25 09:09 Height 56 ft 5 ft 6 in Weight: 313 lb BMI 50.5 BP 132/80 H Blood Pressure Location Lt brachial Position Sitting Pulse 81 Pulse Source Monitor Temp 98.5 F Temp Source Oral Pulse Oximetry (%) 96 Oxygen Delivery Method room air Intake Visit Reasons: RED INSIDE R ARM Chief Complaint: Rash Accompanied by: Self Allergies hydrocodone bitartrate (From Vicodin) Allergy (Verified 01/15/25 09:09) Rash erythromycin base Adverse Reaction (Verified 01/15/25 09:09) Vomiting Penicillins (PCN) Adverse Reaction (Verified 01/15/25 09:09) Upset Stomach Medications ?Medication ?Instructions ?Recorded ?Confirmed ?Type loratadine 10 mg tablet (Claritin) 10 mg PO DAILY lang estion 05/23/20 01/15/25 History melatonin 5 mg capsule 5 mg PO QHS sleep 05/23/20 0 01/15/25 History hydroxychloroquine 200 mg tablet 200 mg PO BID #60 tab s 06/03/22 01/15/25 Rx (Plaquenil) folic acid 1 mg tablet 1 mg PO BID supplement #90 t abs 06/15/22 01/15/25 Rx methotrexate sodium 2.5 mg tablet 20 mg PO QWEEK RA 01/15/25 History rizatriptan 10 mg tablet 10 mg PO ONCE PRN migraine h eadache 12/23/23 01/15/25 History albuterol sulfate 90 mcg/actuation 2 puff inhalation Q 6H PRN 06/21/24 01/15/25 Rx aerosol inhaler shortness of breath or wheez ing #8.5 grams fluticasone fur. 200 mcg-umeclid 1 inh inhalation Q24H #60 ea 08/01/24 01/15/25 Rx 62.5 mcg-vilant 25 mcg inhalat.powder (Trelegy Ellipta) sertraline 50 mg tablet 50 mg PO DAILY mental health #90 12/05/24 01/15/25 Rx TABLETS amlodipine 5 mg tablet 5 mg PO DAILY blood pressure #90 01/15/25 Rx TABLETS cephalexin 500 mg capsule 500 mg PO TID #30 caps 01/1501/15/25 Rx Nurse's Note: Right arm bruised inside. No known injury. Bruise keeps getting longer, warm to touch. Started Wednesday. 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 [employer] Smoking Status: Former smoker quit date: 04/19/14 Tobacco: How many years used: 25 how long ago did patient quit smokin04/19/2016 alcohol intake: never substance use type: does not use what type of physical activity do you participate in: none seatbelt use: always do you feel safe at home: Yes HPI HPI Chief Complaint: Rash Details: HONG KHAN, is a 59 F who presents to the office today for [facility] evaluation at [facility] for approximately 3-day history of right medial antecubital bruised swelling, noting the size is decreased though ecchymosis distal into theright forearm as well as proximal into the right upper arm is now appreciated with trace erythema. She notes localized warmth and tenderness though no complaints of fever, chills, sweats, lightheadedness/dizziness, nausea/vomiting. She notes no history of trauma to the same; she notes no open wounds. No [id number]-[id number] medications have been taken to assist. Gmjbu-zxxc-hnytzmre. PMH NC. No other associated symptoms and no other alleviating or aggravating factors. ROS Const Constitutional: No other (As above) Exam Const General: cooperative, healthy appearing and no acute distress Orientation: alert and awake Resp Effort & Inspection: normal respiratory effort and able to speak in complete sentences Cardio Rate: regular rate Pulses: radial pulses present Skin General: no rashes or lesions noted Neuro General: patient alert and patient awake Cognition: normal cognition Speech: speech normal Extrem General: full ROM, capillary refill normal and normal exam except as noted (~3cmdiameter fluctuant mass R antecub. tender to touch) Other: ecchymosis w/ trace erythema to R upper arm and R FA Psych Appearance: grossly normal Mental Status: mental status grossly normal Mood: congruent mood Affect: normal affect Speech and Movement: speech and movement normal Attitude: cooperative Coding Level of Care Code Off vis,est,level 3 Diagnoses Hematoma of right upper extremity S40.021A Cellulitis of right upper arm L03.113 Assessment and Plan Assessment and Plan (1) Hematoma of right upper extremity: Status: Acute (2) Cellulitis of right upper arm: Status: Acute Plan: Cephalexin as prescribed today. Leon wrap as applied/instructed today. Supportive measures include rest, elevate, NSAIDs/acetaminophen as needed for symptomatic relief. Follow-up with PCP in 3 to 5 days should symptoms not improve, ED sooner should symptoms only worsen or any other concerns develop. Patient states acknowledging understanding all the above. This note was generated with [employer] dictation software. It may contain incorrectwords, spelling, and punctuation that were not noted in checking the note beforesigning. Medications: New cephalexin 500 mg PO TID 30 caps 0RF 01/15/25 1010 <Electronically signed by Alan TABOR> Date _ Alan TABOR Cosigner Signature: Date (if applicable) CC: ~ [facility] Work Phone: Progress note Author ENGINEERING SPECIALIST TECHNICIAN Zeinab Monique [facility] Note Date/Time January 16, 2025 12:02pm [facility] [address] [place] [address] OFFICE VISIT Date of Service: 01/16/25 MR#: [id number] Acct: [id number] Name: HONG KHAN Rep #: [id number] : 1965 Provider: Zeinab wallace NP Age/Sex: 59/F [place] [facility] Status: Signed Assessment and Plan Assessment and Plan (1) Asthma-COPD overlap syndrome: Status: Chronic Plan: Controlled and receiving excellent benefit with using Trelegy 200 dosing. Thereis no exacerbation present. Use albuterol on an as-needed basis. Notify this practice if there are worsening respiratory symptoms. (2) Chronic cough: Status: Chronic Plan: Dramatically improved with current inhaler dosage. Singulair may be helpful in the future but the patient is not reporting significant allergy symptoms and this was readdressed at today's office visit. I will plan to hold on this medication for now. (3) Solitary pulmonary nodule: Status: Acute Plan: There has been an interval decrease in the size of the nodule. I have recommended this CT imaging be repeated in 12 months per Fleischner criteria as the patient is high risk due to smoking history. As long as this testing shows stability then the patient will qualify for the L DCT program. Chest CT due October 2025, previously ordered accordingly. (4) MARIELLA (obstructive sleep apnea): Status: Chronic Comment: PSG shows AHI 70.2 in September 2024 Plan: Controlled. Patient is receiving benefit from therapy. Her AHI is well- controlled despite some air leak present. Mask fit, leak medication, comfort settings were discussed with patient today. The patient is encouraged to reach out to her vendor to adjust comfort settings to improve oral dryness. The patient is encouraged to continue with compliant use of PAP therapy. Repeat compliance download on follow-up in 6 months. Plan Details Follow Up: 6 Months (LMR) HPI HPI Comments Details: Patient is a 59-year-old female who presents today for follow-up for asthma COPDoverlap syndrome and obstructive sleep apnea. She is ambulatory and currently on room air. Since last follow-up she has been seen at urgent care for a rash. She has not required the use of oral prednisone or antibiotics since being on Trelegy 200. Exacerbation of COPD and was treated with oral prednisone and antibiotics in September 2024. She indicates that this is the only exacerbation since she has been on Trelegy. She has returned to baseline. She indicates today that she loves that stuff in reference to Trelegy 200. She has noticed that she is overall feeling a significant improvement and reports that her cough is 75% improved since using this inhaler. She does experience shortness of breath with exertion. She denies wheeze, chest pain and chest tightness. She denies history of asthma or family [...] quit 10 years ago. She has a 15-zdcy-kdbs smoking history. Since being set up with her PAP device and her supplemental oxygen has been ableto be discontinued. She reports that she is feeling more rested than she did prior to using the PAP device. She does nap on occasion. She experiences nocturia x 2. She does experience oral dryness in the morning but is using humidification in the device. She does experience a headache on occasion. She reports that her mask does not feel like it is leaking but her machine is givingher data that shows that there is a leak. She does not have any specific sleep concerns today. PFT from June 28, 2024 which shows partially reversible severe large airway obstructive ventilatory defect with preserved lung volumes and moderate reduction in diffusion capacity. CTA from May 19, 2024 shows a 7 mm peripheral pulmonary nodule in the right lower lobe at image 93. Bibasilar and lingular phthisis is identified. There is no evidence of acute pulmonary emboli. 6-minute walk test from September 11, 2024 shows no significant exertional oxygen desaturation. There is no indication for the use of supplemental oxygen at thistime Chest CT without contrast from October 31, 2024 shows slight decrease in size of the nodule in the peripheral lateral aspect of the right lower lobe as seen on image 77 which measures 6 mm. There is evidence of volume loss and atelectasis in the posterior aspect of the lingular segment of the left upper lobe abutting to the left major fissure. CBC from August 09, 2024 does not show evidence of elevation of peripheral eosinophils. Documentation reviewed with patient today includes: Compliance download from January 09, 2025 shows 100% compliance with CPAP 12 cm for the last 30 days, using the device 7 hours and 55 minutes nightly average. There is some air leak present but AHI is 0.5. Intake Vital Signs 11/03/24 08:11 01/16/25 07:19 Height 5 ft 6 in 5 ft 6 in Weight: 308 lb BMI 49.7 BP 132/90 H Blood Pressure Location Rt radial Position Sitting Respiration 20 H Pulse 74 Pulse Source Monitor Temp 97.2 F L Temperature Source Temporal Artery Pulse Oximetry (%) 96 Oxygen Delivery Method room air Intake Visit Reasons: 10 wk fu Import Clerk Required: No DME Vendor: cp[employer]- [employer] Accompanied by: Self Is patient in pain?: No Allergies hydrocodone bitartrate (From Vicodin) Allergy (Verified 01/16/25 11:29) Rash erythromycin base Adverse Reaction (Verified 01/16/25 11:29) Vomiting Penicillins (PCN) Adverse Reaction (Verified 01/16/25 11:29) Upset Stomach Medications ?Medication ?Instructions ?Recorded ?Confirmed ?Type loratadine 10 mg tablet (Claritin) 10 mg PO DAILY lang estion 05/23/20 01/16/25 History melatonin 5 mg capsule 5 mg PO QHS sleep 05/23/20 0 01/16/25 History hydroxychloroquine 200 mg tablet 200 mg PO BID #60 tab s 06/03/22 01/16/25 Rx (Plaquenil) folic acid 1 mg tablet 1 mg PO BID supplement #90 t abs 06/15/22 01/16/25 Rx methotrexate sodium 2.5 mg tablet 20 mg PO QWEEK RA 01/16/25 History rizatriptan 10 mg tablet 10 mg PO ONCE PRN migraine h eadache 12/23/23 01/16/25 History albuterol sulfate 90 mcg/actuation 2 puff inhalation Q 6H PRN 06/21/24 01/16/25 Rx aerosol inhaler shortness of breath or wheez ing #8.5 grams fluticasone fur. 200 mcg-umeclid 1 inh inhalation Q24H #60 ea 08/01/24 01/16/25 Rx 62.5 mcg-vilant 25 mcg inhalat.powder (Trelegy Ellipta) sertraline 50 mg tablet 50 mg PO DAILY mental health #90 12/05/24 01/16/25 Rx TABLETS amlodipine 5 mg tablet 5 mg PO DAILY blood pressure #90 01/15/25 01/16/25 Rx TABLETS cephalexin 500 mg capsule 500 mg PO TID #30 caps 01/1501/16/25 Rx PFSH Medical History Cellulitis of right upper arm Hematoma of right upper extremity Microcytosis Osteoarthritis COPD with exacerbation MARIELLA (obstructive sleep apnea) Fatigue Chronic cough [...] house current occupational status: employed 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 [employer] Smoking Status: Former smoker quit date: 04/19/14 Tobacco: How many years used: 25 how long ago did patient quit smokin04/19/2016 alcohol intake: never substance use type: does not use what type of physical activity do you participate in: none seatbelt use: always do you feel safe at home: Yes Review of Systems Resp Respiratory: Yes as per HPI Exam Const Constitutional: Positive conversant, cooperative, in no acute respiratory distress, healthy appearing, well developed, well nourished and obese; Negative ill appearing Head Head: Yes normocephalic and Yes atraumatic Eyes Eye: Positive clear conjunctiva Ears Ear: Positive hearing normal and external ears normal Nose Nose: Yes external nose normal Mouth Mouth: Positive oral mucosae normal and good dentition Neck Neck: Positive normal visual inspection and trachea midline Chest Wall Chest: Positive symmetric chest movement Resp lung sounds: Positive diminished lung sounds, normal expiratory time and normal respiratory effort; Negative wheezes, rhonchi, rales or use of accessory muscles Cardio Cardiac: Positive regular rate and regular rhythm; Negative murmur GI GI: Positive normal to inspection and obese Genitourinary: Positive deferred Musc Musculoskeletal: Positive steady gait and ROM normal Skin Pulmonary Skin Exam: Positive intact; Negative rash or erythema Pulses Pulse: Yes radial pulses present Extremities Extremities: Yes capillary refill normal, No clubbing and No cyanosis Neuro Neurologic: Yes no focal neuro deficits, Yes conversant and Yes normal cognition Psych Appearance: Positive grossly normal Mental Status: Positive mental status grossly normal Mood: Positive congruent mood Affect: Positive normal affect Coding Level of Care Code Off vis,est,level 4 Diagnoses Asthma-COPD overlap syndrome J44.89 Chronic cough R05.3 Solitary pulmonary nodule R91.1 MARIELLA (obstructive sleep apnea) G47.33 01/16/25 1044 <Electronically signed by Zeinab james ENGINEERING SPECIALIST TECHNICIAN-C> Date _ Zeinab Monique ENGINEERING SPECIALIST TECHNICIAN-C Cosigner Signature: Date (if applicable) CC: ~ [facility] Work Phone: Progress note Author Clara Lopez [facility] Note Date/Time February 07, 2025 1 0:35am [facility] [address] [place] [address], [address] [place] [address] OFFICE VISIT Date of Service: 02/07/25 MR#: [id number] Acct: [id number] Name: HONG KHAN Rep #: [id number] : 1965 Provider: TETO Lopez Age/Sex: 59/F Location[place] [facility] [place] Status: Signed Intake Vital Signs 11/03/24 08:11 01/16/25 07:19 02/07/25 09:01 Height 5 ft 6 in 5 ft 6 in 5 ft 6 in Weight: 312 lb 5 oz BMI 50.3 BP 138/84 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) Import Clerk Required: No Is patient in pain?: No Allergies hydrocodone bitartrate (From Vicodin) Allergy (Verified 02/07/25 09:19) Rash erythromycin base Adverse Reaction (Verified 02/07/25 09:19) Vomiting Penicillins (PCN) Adverse Reaction (Verified 02/07/25 09:19) Upset Stomach Medications ?Medication ?Instructions ?Recorded ?Confirmed ?Type loratadine 10 mg tablet (Claritin) 10 mg PO DAILY lang estion 05/23/20 02/07/25 History melatonin 5 mg capsule 5 mg PO QHS sleep 05/23/20 1 History hydroxychloroquine 200 mg tablet 200 mg PO BID #60 tab s 06/03/22 02/07/25 Rx (Plaquenil) folic acid 1 mg tablet 1 mg PO BID supplement #90 t abs 06/15/22 02/07/25 Rx methotrexate sodium 2.5 mg tablet 20 mg PO QWEEK RA 02/07/25 History rizatriptan 10 mg tablet 10 mg PO ONCE PRN migraine h eadache 12/23/23 02/07/25 History albuterol sulfate 90 mcg/actuation 2 puff inhalation Q 6H PRN 06/21/24 02/07/25 Rx aerosol inhaler shortness of breath or wheez ing #8.5 grams fluticasone fur. 200 mcg-umeclid 1 inh inhalation Q24H #60 ea 08/01/24 02/07/25 Rx 62.5 mcg-vilant 25 mcg inhalat.powder (Trelegy Ellipta) sertraline 50 mg tablet 50 mg PO DAILY mental health #90 12/05/24 02/07/25 Rx TABLETS amlodipine 5 mg tablet 5 mg PO DAILY blood pressure #90 01/15/25 02/07/25 Rx TABLETS CPAP - Continuous Positive Airway 01/29/25 02/07/25 H istory Pressure([facility] USE ONLY) Is last menstrual period known: No Post menopausal: Yes Patient : No : No [facility] Medical History (Updated 02/07/25 @ 09:23 by Clara Lopez NP, ENGINEERING SPECIALIST TECHNICIAN-C) Cellulitis of right upper arm Hematoma of right upper extremity Microcytosis Osteoarthritis MARIELLA (obstructive sleep apnea) Fatigue Chronic cough Bronchitis Dyspnea Left upper quadrant pain PAC (premature atrial contraction) Knee bursitis Otitis Left ear pain Generalized anxiety disorder History of smoking 30 or more pack years Thyroid nodule Wears glasses Post-menopausal Sleep apnea [...] members: spouse housing: house current occupational status: unemployed Smoking Status: Former smoker quit date: 04/19/14 Tobacco: How many years used: 25 how long ago did patient quit smokin04/19/2016 alcohol intake: never substance use type: does not use what type of physical activity do you participate in: none seatbelt use: always do you feel safe at home: Yes additional social history: - [employer] History 4 Elective abortions Hx Para 2 Spontaneous abortions Hx # Term Pregnancies Ectopic pregnancies Hx # Pregnancies Multiple births # of living children 2 HPI Encounter for routine gynecological examination Details: HONG KHAN is a 59 year old who presents for new patient annual exam. No menses since ablation about 10 years. Last exam 2018 Dr Preciado. Last PAP: 2018 History of abnormal PAP: no Last mammogram: 09/2024 History of abnormal mammogram: benign bx Colon cancer screenin Q5yr Other preventative health care screenings: Oleghe Female Reproductive History Questions: metrorrhagia: No, sexually active: Yes, dyspareunia: No and PCB: No ROS Const Constitutional: Denies fatigue, weight gain or weight loss Cardio Card: Denies chest pain Resp Resp: Denies cough or dyspnea on exertion GI GI: Denies abdominal pain, bloating, change in stool character, constipation or vomiting : Reports as per HPI; Denies difficulty voiding, pelvic pain, urinary frequency, urinary incontinence,urinary urgency, vaginal discharge or vaginal pruritus Exam Const General: cooperative, healthy appearing, no acute distress and well developed Orientation: alert, oriented to person and oriented to place HENOR Head: normal to inspection Neck Neck: normal visual inspection Thyroid: thyroid normal Lymphatic: no lymphadenopathy noted Chest Breast inspection: normal inspection of the breasts and normal inspection of theaxillae Breast palpation: normal palpation of the breasts, normal palpation of the axillae and no axillary lymphadenopathy Resp Effort & Inspection: normal respiratory effort GI Palpation: soft, no masses and nontender Rectal Exam: deferred External Female Exam: normal external appearance and normal appearance of the urethra Urethra: normal appearance of the urethra and normal palpation Speculum Exam - Vagina: normal appearance of the vagina and normal vaginal discharge Speculum Exam - Cervix: normal appearance of the cervix Bimanual Exam- Vagina & Uterus: normal bimanual exam, uterine size normal, uterine shape normal and non-tender Bimanual Exam- Adnexa, other: normal adnexae, no masses, normal and non-tender Pelvic Support: normal Neuro General: patient alert and patient oriented x3 Psych Affect: normal affect Coding Level of Care Code Off vis,new,prev 40-64yrs Diagnoses Encounter for gynecological examination without abnormal finding Z01.419 Gynecological examination findings: abnormal findings ABSENT Assessment and Plan Assessment and Plan (1) Encounter for routine gynecological examination: Qualifiers: Gynecological examination findings: abnormal findings ABSENT Qualified Code(s): Z01.419 - Encounter for gynecological examination (general) (routine) without abnormal findings Orders: Orders PAP IG HPV APTIMA 16/18,45 Today Z12.4 - Encounter for screening for malignant neoplasm of cervix Plan Completed breast and pelvic exam Reviewed diet and exercise Pap thin prep pap with HPV Mammogram ordered breast self exam encouraged monthly Contraception postmenopausal Colonoscopy 2020 Bone density age 65 w PCP RTO 1 year, prn with problems Clara Lopez WEEKEND ANCHOR 02/07/25 1020 <Electronically signed by Clara ochoa ENGINEERING SPECIALIST TECHNICIAN ENGINEERING SPECIALIST TECHNICIAN-C> Date _ Clara Lopez ENGINEERING SPECIALIST TECHNICIAN ENGINEERING SPECIALIST TECHNICIAN-C Cosigner Signature: Date (if applicable) CC: ~ [facility] Work Phone: Reason for referral (narrative)No reason for referral information availableSanta [facility] Work Phone: Chief Complaint and Reason for [...] 2:59pm Urinary tract infection May 28 9:23am [facility] June 01, 2024 5:51pm ACUTE 2 [...] A INFECTION WITH HYPOXIA AND CIARAN Silvestre last 2024 6:08pm FLU A INFECTION WITH HYPOXIA AND CIARAN Feb ruary 2024 12:49pm FLU A INFECTION WITH HYPOXIA AND CIARAN Feb ruary 2024 1:37pm FLU A INFECTION WITH HYPOXIA AND CIARAN Feb ruary 2024 12:16pm FLU A INFECTION WITH HYPOXIA AND CIARAN Feb ruary 2024 1:06pm FLU A INFECTION WITH HYPOXIA AND CIARAN Feb ruary 2024 2:59pm Urinary tract infection May 28 9:23am [facility] June 01, 2024 5:51pm ACUTE 2 [...] A INFECTION WITH HYPOXIA AND CIARAN Silvestre last 2024 6:08pm FLU A INFECTION WITH HYPOXIA AND CIARAN Feb ruary 2024 12:49pm FLU A INFECTION WITH HYPOXIA AND CIARAN Feb ruary 2024 1:37pm FLU A INFECTION WITH HYPOXIA AND CIARAN Feb ruary 2024 12:16pm FLU A INFECTION WITH HYPOXIA AND CIARAN Feb ruary 2024 1:06pm FLU A INFECTION WITH HYPOXIA AND CIARAN Feb ruary 2024 2:59pm Urinary tract infection May 28 9:23am [facility] June 01, 2024 5:51pm ACUTE [address] COVARRUBIAS May [id number] 12:23pm R05.3 - Chronic cough June 28, 2024 9 :23am CHRONIC COUGH August 01, 2024 10: 41am 4 M FU August 23, 2024 2:33pm J44.9 - [facility] September 05, 2024 12:19pm J44.9 - Chronic obstructive pulmonary [facility] September 11, 2024 7:19am Reason for Visit [...] 2024 2:33pm MARIELLA (obstructive sleep apnea) August 23, 2:33pm Chief Complaint Admit Date [facility] FU June 01, 2024 5:51pm ACUTE [address] COVARRUBIAS May 212024 12:23pm R05.3 - Chronic cough June 28, 2024 9 :23am CHRONIC COUGH August 01, 2024 10: 41am 4 M FU August 23, 2024 2:33pm J44.9 - Chronic obstructive pulmonary di [facility], [facility] September 05, 2024 12:19pm J44.9 - Chronic obstructive pulmonary di [facility], uns September 11, 2024 7:19am MARIELLA September 18, 2024 7:49p m Breast Cancer Screening September 25, 2024 1 0:11am ACUTE COPD FLARE UP September 28, 2024 9:59 am Reason for Visit Admit Date Bronchitis June 01, 2024 5:51pm Fatigue June [...] 2024 2:33pm MARIELLA (obstructive sleep apnea) August 23, 2:33pm COPD with exacerbation September 28, 2024 9 :59am Chief Complaint Admit Date [facility] FU June 01, 2024 5:51pm ACUTE [address] COVARRUBIAS May 212024 12:23pm R05.3 - Chronic cough June 28, 2024 9 :23am CHRONIC COUGH August 01, 2024 10: 41am 4 M FU August 23, 2024 2:33pm J44.9 - Chronic obstructive pulmonary di [facility], [facility] September 05, 2024 12:19pm J44.9 - Chronic obstructive pulmonary di [facility], [facility] September 11, 2024 7:19am MARIELLA September 18, 2024 7:49p m Breast Cancer Screening September 25, 2024 1 0:11am ACUTE COPD FLARE UP September 28, 2024 9:59 am Cough, COPD exacerbation September 29, 2024 9:24am Chief Complaint Admit Date ACUTE [address] COVARRUBIAS May 212024 12:23pm R05.3 - Chronic cough June 28, 2024 9 :23am R05.3 - Chronic cough June 28, 2024 9 :40am CHRONIC COUGH August 01, 2024 10: 41am 4 M FU August 23, 2024 2:33pm J44.9 - Chronic obstructive pulmonary [facility] September 05, 2024 12:19pm J44.9 - Chronic obstructive pulmonary [facility] September 11, 2024 7:19am MARIELLA September 18, 2024 7:49p m Breast Cancer Screening September 25, 2024 1 0:11am ACUTE COPD FLARE UP September 28, 2024 9:59 am Cough, COPD exacerbation September 29, 2024 9:24am Reason for Visit Admit Date Bronchitis June 15, 2024 12:23pm Solitary pulmonary nodule August 01 10:41am Asthma-COPD overlap syndrome August 01, 2024 10:41am Chronic cough August 01, 2024 10: 41am Health care maintenance August 23, 2024 2: 33pm COPD (chronic obstructive pulmonary dise ase) August 23, 2024 2:33pm Generalized anxiety disorder August 23 2:33pm Hypertension August 23, 2024 2:33pm MARIELLA (obstructive sleep apnea) August 23 2:33pm COPD with exacerbation September 28, 2024 9 :59am Chief Complaint Admit Date R05.3 - Chronic cough June 28, 2024 9 :23am R05.3 - Chronic cough June 28, 2024 9 :40am CHRONIC COUGH August 01, 2024 10: 41am 4 M FU August 23, 2024 2:33pm J44.9 - Chronic obstructive pulmonary [facility] September 05, 2024 12:19pm J44.9 - Chronic obstructive pulmonary [facility] September 11, 2024 7:19am MARIELLA September 18, 2024 7:49p m Breast Cancer Screening September 25, 2024 1 0:11am ACUTE COPD FLARE UP September 28, 2024 9:59 am Cough, COPD exacerbation September 29, 2024 9:24am Reason for Visit Admit Date Solitary pulmonary nodule August 01 10:41am Asthma-COPD overlap syndrome August 01, 2024 10:41am Chronic cough August 01, 2024 10: 41am Health care maintenance August 23, 2024 2: 33pm COPD (chronic obstructive pulmonary dise ase) August 23, 2024 2:33pm Generalized anxiety disorder August 23 2:33pm Hypertension August 23, 2024 2:33pm MARIELLA (obstructive sleep apnea) August 23, 025 2:33pm COPD with exacerbation September 28, 2024 9 :59am Chief Complaint Admit Date R05.3 - Chronic cough June 28, 2024 9 :23am R05.3 - Chronic cough June 28, 2024 9 :40am CHRONIC COUGH August 01, 2024 10: 41am 4 M FU August 23, 2024 2:33pm J44.9 - Chronic obstructive pulmonary [facility], [facility] September 05, 2024 12:19pm J44.9 - Chronic obstructive pulmonary [facility], [facility] September 11, 2024 7:19am MARIELLA September 18, 2024 7:49p m Breast Cancer Screening September 25, 2024 1 0:11am ACUTE COPD FLARE UP September 28, 2024 9:59 am Cough, COPD exacerbation September 29, 2024 9:24am Sleep Apnea October 16, 2024 7:54 pm Chief Complaint Admit Date CHRONIC COUGH August 01, 2024 10: 41am 4 M FU August 23, 2024 2:33pm J44.9 - Chronic obstructive pulmonary di [facility], [facility] September 05, 2024 12:19pm J44.9 - Chronic obstructive pulmonary di [facility], [facility] September 11, 2024 7:19am MARIELLA September 18, 2024 7:49p m Breast Cancer Screening September 25, 2024 1 0:11am ACUTE COPD FLARE UP September 28, 2024 9:59 am Cough, COPD exacerbation September 29, 2024 9:24am Sleep Apnea October 16, 2024 7:54 pm 7MM RLL NODULE, HX SMOKING October 31 8:25am 3 M FU November 03, 2024 11:1 2am Reason for Visit Admit Date Solitary pulmonary nodule August 01 10:41am Asthma-COPD overlap syndrome August 01, 2024 10:41am Chronic cough August 01, 2024 10: 41am Health care maintenance August 23, 2024 2: 33pm COPD (chronic obstructive pulmonary dise ase) August 23, 2024 2:33pm Generalized anxiety disorder August 23 2:33pm Hypertension August 23, 2024 2:33pm MARIELLA (obstructive sleep apnea) August 23, 2 025 2:33pm COPD with exacerbation September 28, 2024 9 :59am Solitary pulmonary nodule November 03 11:12am Asthma-COPD overlap syndrome November 03, 2024 11:12am Chronic cough November 03, 2024 11:1 2am Chief Complaint Admit Date CHRONIC COUGH August 01, 2024 10: 41am 4 M FU August 23, 2024 2:33pm J44.9 - Chronic obstructive pulmonary di [facility], [facility] September 05, 2024 12:19pm J44.9 - Chronic obstructive pulmonary di [facility], uns September 11, 2024 7:19am MARIELLA September 18, 2024 7:49p m Breast Cancer Screening September 25, 2024 1 0:11am ACUTE COPD FLARE UP September 28, 2024 9:59 am Cough, COPD exacerbation September 29, 2024 9:24am Sleep Apnea October 16, 2024 7:54 pm 7MM RLL NODULE, HX SMOKING October 31 8:25am 3 M FU November 03, 2024 11:1 2am MARIELLA November 03, 2024 1:33 pm Reason for Visit Admit Date Solitary pulmonary nodule August 01 10:41am Asthma-COPD overlap syndrome August 01, 2024 10:41am Chronic cough August 01, 2024 10: 41am Health care maintenance August 23, 2024 2: 33pm COPD (chronic obstructive pulmonary dise ase) August 23, 2024 2:33pm Generalized anxiety disorder August 23 2:33pm Hypertension August 23, 2024 2:33pm MARIELLA (obstructive sleep apnea) August 23, 2 025 2:33pm COPD with exacerbation September 28, 2024 9 :59am Solitary pulmonary nodule November 03 11:12am Asthma-COPD overlap syndrome November 03, 2024 11:12am Chronic cough November 03, 2024 11:1 2am MARIELLA (obstructive sleep apnea) November 03, 2024 11:12am Chief Complaint Admit Date J44.9 - Chronic obstructive pulmonary di [facility], [facility] September 05, 2024 12:19pm J44.9 - Chronic obstructive pulmonary di [facility], uns September 11, 2024 7:19am MARIELLA September 18, 2024 7:49p m Breast Cancer Screening September 25, 2024 1 0:11am ACUTE COPD FLARE UP September 28, 2024 9:59 am Cough, COPD exacerbation September 29, 2024 9:24am Sleep Apnea October 16, 2024 7:54 pm 7MM RLL NODULE, HX SMOKING October 31 8:25am 3 M FU November 03, 2024 11:1 2am MARIELLA November 03, 2024 1:33 pm 4 M FU December 27, 2024 2:00pm Reason for Visit Admit Date COPD with exacerbation September 28, 2024 9 :59am Solitary pulmonary nodule November 03 11:12am Asthma-COPD overlap syndrome November 03, 2024 11:12am Chronic cough November 03, 2024 11:1 2am MARIELLA (obstructive sleep apnea) November 03, 2024 11:12am Chief Complaint Admit Date J44.9 - [place] [facility] [place] [facility] September 05, 2024 12:19pm J44.9 - [place] [facility] [place] [facility] September 11, 2024 7:19am MARIELLA September 18, 2024 7:49p m Breast Cancer Screening September 25, 2024 1 0:11am ACUTE COPD FLARE UP September 28, 2024 9:59 am Cough, COPD exacerbation September 29, 2024 9:24am Sleep Apnea October 16, 2024 7:54 pm 7MM RLL NODULE, HX SMOKING October 31 8:25am 3 M FU November 03, 2024 11:1 2am MARIELLA November 03, 2024 1:33 pm 4 M FU December 27, 2024 2:00pm EORDERS December 29, 2024 10:43am RIGHT HIP January 01, 2025 1:24pm Room 2 January 01, 2025 1:43pm Reason for Visit Admit Date COPD with exacerbation September 28, 2024 9 :59am Solitary pulmonary nodule November 03 11:12am Asthma-COPD overlap syndrome November 03, 2024 11:12am Chronic cough November 03, 2024 11:1 2am MARIELLA (obstructive sleep apnea) November 03, 2024 11:12am Osteoarthritis December 27, 2024 2:00pm Generalized anxiety disorder December 182024 2:00pm Hypertension December 27, 2024 2:00pm Migraines December 27, 2024 2:00pm Rheumatoid arthritis December 27 2:00pm Reason for Visit Admit Date COPD with exacerbation September 28, 2024 9 :59am Solitary pulmonary nodule November 03 11:12am Asthma-COPD overlap syndrome November 03, 2024 11:12am Chronic cough November 03, 2024 11:1 2am MARIELLA (obstructive sleep apnea) November 03, 2024 11:12am Osteoarthritis December 27, 2024 2:00pm Generalized anxiety disorder December 182024 2:00pm Hypertension December 27, 2024 2:00pm Migraines December 27, 2024 2:00pm Rheumatoid arthritis December 27 2:00pm Osteoarthritis of right knee December 182024 1:24pm Right hip pain January 01, 2025 1:24pm Chief Complaint Admit Date MARIELLA September 18, 2024 7:49p m Breast Cancer Screening September 25, 2024 1 0:11am ACUTE COPD FLARE UP September 28, 2024 9:59 am Cough, COPD exacerbation September 29, 2024 9:24am Sleep Apnea October 16, 2024 7:54 pm 7MM RLL NODULE, HX SMOKING October 31 8:25am 3 M FU November 03, 2024 11:1 2am MARIELLA November 03, 2024 1:33 pm 4 M FU December 27, 2024 2:00pm EORDERS December 29, 2024 10:43am RIGHT HIP January 01, 2025 1:24pm Room 2 January 01, 2025 1:43pm RED INSIDE R ARM January 15, 2025 8:58am Reason for Visit Admit Date COPD with exacerbation September 28, 2024 9 :59am Solitary pulmonary nodule November 03 11:12am Asthma-COPD overlap syndrome November 03, 2024 11:12am Chronic cough November 03, 2024 11:1 2am MARIELLA (obstructive sleep apnea) November 03, 2024 11:12am Osteoarthritis December 27, 2024 2:00pm Generalized anxiety disorder December 182024 2:00pm Hypertension December 27, 2024 2:00pm Migraines December 27, 2024 2:00pm Rheumatoid arthritis December 27 2:00pm Morbid obesity due to excess calories Se ptember 2024 1:24pm Osteoarthritis of right knee December 182024 1:24pm Right hip pain January 01, 2025 1:24pm Cellulitis of right upper arm January 15, 2025 8:58am Hematoma of right upper extremity Septem 2024 8:58am Chief Complaint Admit Date Breast Cancer Screening September 25, 2024 1 0:11am ACUTE COPD FLARE UP September 28, 2024 9:59 am Cough, COPD exacerbation September 29, 2024 9:24am Sleep Apnea October 16, 2024 7:54 pm 7MM RLL NODULE, HX SMOKING October 31 8:25am 3 M FU November 03, 2024 11:1 2am MARIELLA November 03, 2024 1:33 pm 4 M FU December 27, 2024 2:00pm EORDERS December 29, 2024 10:43am RIGHT HIP January 01, 2025 1:24pm Room 2 January 01, 2025 1:43pm RED INSIDE R ARM January 15, 2025 8:58am 10 wk fu January 16, 2025 10:57am Reason for Visit Admit Date COPD with exacerbation September 28, 2024 9 :59am Solitary pulmonary nodule November 03 11:12am Asthma-COPD overlap syndrome November 03, 2024 11:12am Chronic cough November 03, 2024 11:1 2am MARIELLA (obstructive sleep apnea) November 03, 2024 11:12am Osteoarthritis December 27, 2024 2:00pm Generalized anxiety disorder December 182024 2:00pm Hypertension December 27, 2024 2:00pm Migraines December 27, 2024 2:00pm Rheumatoid arthritis December 27 2:00pm Morbid obesity due to excess calories Se ptember 2024 1:24pm Osteoarthritis of right knee December 182024 1:24pm Right hip pain January 01, 2025 1:24pm Cellulitis of right upper arm January 15, 2025 8:58am Hematoma of right upper extremity Septem 2024 8:58am Solitary pulmonary nodule December 10:57am Asthma-COPD overlap syndrome December 202024 10:57am Chronic cough January 16, 2025 10:57am MARIELLA (obstructive sleep apnea) January 16, 2025 10:57am Chief Complaint Admit Date 7MM RLL NODULE, HX SMOKING October 31 8:25am 3 M FU November 03, 2024 11:1 2am MARIELLA November 03, 2024 1:33 pm 4 M FU December 27, 2024 2:00pm EORDERS December 29, 2024 10:43am RIGHT HIP January 01, 2025 1:24pm Room 2 January 01, 2025 1:43pm RED INSIDE R ARM January 15, 2025 8:58am 10 wk fu January 16, 2025 10:57am RIGHT HIP. 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 8 :56am Reason for Visit Admit Date Solitary pulmonary nodule November 03 11:12am Asthma-COPD overlap syndrome November 03, 2024 11:12am Chronic cough November 03, 2024 11:1 2am MARIELLA (obstructive sleep apnea) November 03, 2024 11:12am Osteoarthritis December 27, 2024 2:00pm Generalized anxiety disorder December 182024 2:00pm Hypertension December 27, 2024 2:00pm Migraines December 27, 2024 2:00pm Rheumatoid arthritis December 27 2:00pm Morbid obesity due to excess calories Se ptember 2024 1:24pm Osteoarthritis of right knee December 182024 1:24pm Right hip pain January 01, 2025 1:24pm Cellulitis of right upper arm January 15, 2025 8:58am Hematoma of right upper extremity Septem krissy 2024 8:58am Solitary pulmonary nodule December 10:57am Asthma-COPD overlap syndrome December 202024 10:57am Chronic cough January 16, 2025 10:57am MARIELLA (obstructive sleep apnea) January 16, 2025 10:57am Encounter for routine gynecological exam ination February 07, 2025 8:56am Family History No Family History Records Found Relationship Condition Age at Onset Recorded Date/T layla mother Anxiety and depression Unknown Arthritis Unknown father Hypertension Unknown grandmother Osteoporosis Unknown Advance Directives No Advanced Directives Records Found Advance Directive Response Recorded Date/ Time Advance Directives No May 08, 2014 2:15pm Living Will No August 21, 2020 1: 20pm Power of Conveyor Installer No August 21, 2020 1:20pm Advance Directive Response Recorded Date/ Time Advance Directives No May 08, 2014 1:15pm Living Will No August 21, 2020 12 :20pm Power of Conveyor Installer No August 21, 2020 12:20pm Advance Directive Response Recorded Date/ Time Living Will No November 18, 2023 10:13am Power of Conveyor Installer No November 17 10:13am Living Will No May 19 9:28pm Power of Conveyor Installer No May 19, 2024 9:28pm Advance Directives No November 17 10:13am Advance Directive Response Recorded Date/ Time Living Will No November 18, 2023 10:13am Do you have a Healthcare Power of Conveyor Installer? No November 18, 2023 10:13am Living Will No May 19 9:28pm Do you have a Healthcare Power of Conveyor Installer? No May 19, 2024 9:28pm Advance Directives No November 17 10:13am Advance Directive Response Recorded Date/ Time Living Will No May 19 9:28pm Do you have a Healthcare Power of Conveyor Installer? No May 19, 2024 9:28pm Advance Directives No November 17 10:13am Advance Directive Response Recorded Date/ Time Advance Directives No November 17 10:13am Advance Directive Response Recorded Date/ Time Advance Directives No November 17 9:13am Summary Purpose Additional Source Comments Goals (unrecognized [...] Dr. Nicky Covarrubias MD Primary Care P [email or web address], Attending Provider, Referring Provider Active Team Status: [...] May 19, 2024 End: May 19, 2024 SHERRY NURSE Attending Provider Active Start: Jas may 2024 End: May 19, 2024 Team Status: Inactive Member Role Status Dates Dr. iNcky Covarrubias MD Primary Care Provider Active Start: May 19, 2024 End: May 24, 2024 Dr. Vikash Blake , DO Emergency Provider Active Start: May 19, [...] May 20, 2024 Dr. Vikash Blake , DO Emergency Provider Active Start: May 20, 2024 Dr. Oli Marcelino , Admit Provider Active Start: May 20, 2024 Dr. Oli Marcelino , Other Provider Active Start: May 20, 2024 Dr. Zelalem Ramires DO Attending Provider Active Start: May 20, 2024 Dr. Zelalem Ramires , DO Other Provider Active S tart: May 20, 2024 Team Status: Active Member Role Status Dates Dr. Nicky Covarrubias MD Primary Care Provider Active Start: May 21, 2024 Dr. Vikash Blake , DO Emergency Provider Active Start: May 21, 2024 Dr. Oli Marcelino , DO Admit Provider Active Start: May 21, 2024 Dr. Oli Marcelino , DO Other Provider Active Start: May 21, 2024 Dr. Zelalem Ramires DO Attending Provider Active Start: May 21, 2024 Dr. Zelalem Ramires , DO Other Provider Active S tart: May 21, 2024 Team Status: Active Member Role Status Dates Dr. Nicky Covarrubias MD Primary Care Provider Active Start: May 22, 2024 Dr. Vikash Blake , DO Emergency Provider Active Start: May 22, 2024 [...] Provider Active Start: May 23, 2024 Dr. Vikash Blake , Emergency Provider Active Start: May 23, 2024 Dr. Oli Marcelino , Admit Provider Active Start: May 23, 2024 Dr. Oli Marcelino , Other Provider Active Start: May 23, 2024 [...] Start: May 24, 2024 Dr. Vikash Blake DO Emergency Provider Active Start: May 24, 2024 Dr. Oli Marcelino DO Admit Provider Active Start: May 24, 2024 Dr. Oli Marcelino DO Other Provider Active Start: May 24, 2024 Dr. Nany Kebede MD Attending Provider Active Start: May 24, 2024 Dr. Nany Kebede MD Other Provider Active St art: May 24, 2024 Dr. Zelalem Ramires DO Other Provider Active S tart: May 24, 2024 Team Status: Inactive Member Role Status Dates Dr. Nicky Covarrubias MD Primary Care Provider Active Start: May 28, 2024 End: May 28, 2024 Dr. Nicky Covarrubias MD Referring Provider Active Start: May 28, 2024 End: May 28, 2024 Dustin Botello ENGINEERING SPECIALIST TECHNICIAN, ENGINEERING SPECIALIST TECHNICIAN-C Attending Provider Active S tart: May 28, [...] September 05, 2024 End: September 05, 2024 Zeinab Monique NP-C Attending Provider Active Start: September 05, 2024 [...] Provider Active S tart: September 11, 2024 Team Status: Active Member Role Status Dates Dr. Nicky Covarrubias MD Primary Care Provider Active Start: September 18, 2024 Dr. Nicky Covarrubias MD Attending Provider Active Start: September 18, 2024 Dr. Nicky Covarrubias MD Referring Provider Active Start: September 18, 2024 Team Status: Active Member Role Status Dates Dr. Nicky Covarrubias MD Primary Care Provider Active Start: September 25, 2024 Dr. Nicky Covarrubias MD Attending Provider Active Start: September 25, 2024 Dr. Nicky Covarrubias MD Referring Provider Active Start: September 25, 2024 Team Status: Inactive Member Role Status Dates Dr. Nicky Covarrubias MD Primary Care Provider Active Start: September 28, 2024 End: September 28, 2024 Dr. Nicky Covarrubias MD Referring Provider Active Start: September 28, 2024 End: September 28, 2024 Katey Page , ENGINEERING SPECIALIST TECHNICIAN-C Attending Provider Active Start: September 28, 2024 End: September 28, 2024 Team Status: Inactive Member Role Status Dates Dr. Nicky Covarrubias MD Primary Care Provider Active Start: September 25, 2024 End: September 25, 2024 Dr. Nicky Covarrubias MD Attending Provider Active Start: September 25, 2024 End: September 25, 2024 Dr. Nicky Covarrubias MD Referring Provider Active Start: September 25, 2024 End: September 25, 2024 Team Status: Active Member Role Status Dates Dr. Nicky Covarrubias MD Primary Care Provider Active Start: September 29, 2024 Katey Ungerer , ENGINEERING SPECIALIST TECHNICIAN-C Attending Provider Active Start: September 29, 2024 Katey Ungerer , ENGINEERING SPECIALIST TECHNICIAN-C Referring Provider Active Start: September 29, 2024 Team Status: Active Member Role Status Dates Dr. Nicky Covarrubias MD Primary Care Provider Active Start: June 28, 2024 Dr. Nicky Covarrubias MD Referring Provider Active Start: June 28, 2024 Dr. Bryce Lo DO Attending Provider Active S tart: June 28, 2024 Team Status: Inactive Member Role Status Dates Dr. Nicky Covarrubias MD Primary Care Provider Active Start: September 29, 2024 End: September 29, 2024 Katey Ungerer , ENGINEERING SPECIALIST TECHNICIAN-C Attending Provider Active Start: September 29, 2024 End: September 29, 2024 Katey Ungerer , ENGINEERING SPECIALIST TECHNICIAN-C Referring Provider Active Start: September 29, 2024 End: September 29, 2024 Team Status: Inactive Member Role Status Dates Dr. Nicky Covarrubias MD Primary Care Provider Active Start: October 06, 2024 End: October 06, 2024 DESIREE REICH Attending Provider Active Start : October 06, 2024 End: October 06, 2024 Team Status: Active Member Role/Relationship Status Dates Dr. Nicky Covarrubias MD Primary Care Provider Active Team Status: Inactive Member Role/Relationship Status Dates Dr. Nicky Covarrubias MD Primary Care Provider Active Start: June 28, 2024 End: June 28, 2024 Dr. Nicky Covarrubias MD Attending Provider Active Start: June 28, 2024 End: June 28, 2024 Dr. Nicky Covarrubias MD Referring Provider Active Start: June 28, 2024 End: June 28, 2024 Team Status: Active Member Role/Relationship Status Dates Dr. Nicky Covarrubias MD Primary Care Provider Active Start: June 28, 2024 Dr. Nicky Covarrubias MD Referring Provider Active Start: June 28, 2024 Dr. Bryce Lo DO Attending Provider Active S tart: June 28, 2024 Team Status: Inactive Member Role/Relationship Status Dates Dr. Nicky Covarrubias MD Primary Care Provider Active Start: August 01, 2024 End: August 01, 2024 Dr. Nicky Covarrubias MD Referring Provider Active Start: August 01, 2024 End: August 01, 2024 TETO Jasso Attending Provider Active Start: August 01, 2024 End: August 01, 2024 Team Status: Inactive Member Role/Relationship Status Dates Dr. Nicky Covarrubias MD Primary Care Provider Active Start: August 09, 2024 End: August 09, 2024 Zeinab Monique NP-Alejandro Attending Provider Active Start: August 09, 2024 End: August 09, 2024 TETO Jasso Referring Provider Active Start: August 09, 2024 End: August 09, 2024 Team Status: Inactive Member Role/Relationship Status Dates Dr. Nicky Covarrubias MD Primary Care Provider Active Start: August 23, 2024 End: August 23, 2024 Dr. Nicky Covarrubias MD Attending Provider Active Start: August 23, 2024 End: August 23, 2024 Dr. Nicky Covarrubias MD Referring Provider Active Start: August 23, 2024 End: August 23, 2024 Team Status: Inactive Member Role/Relationship Status Dates Dr. Nicky Covarrubias MD Primary Care Provider Active Start: September 05, 2024 End: September 05, 2024 TETO Jasso Attending Provider Active Start: September 05, 2024 End: September 05, 2024 TETO Jasso Referring Provider Active Start: September 05, 2024 End: September 05, 2024 Team Status: Active Member Role/Relationship Status Dates Dr. Nicky Covarrubias MD Primary Care Provider Active Start: September 11, 2024 TETO Jasso Referring Provider Active Start: September 11, 2024 TETO Jasso Other Provider Active St art: September 11, 2024 Dr. Bryce Lo DO Attending Provider Active S tart: September 11, 2024 Team Status: Inactive Member Role/Relationship Status Dates Dr. Nicky Covarrubias MD Primary Care Provider Active Start: September 18, 2024 End: September 18, 2024 Dr. Nicky Covarrubias MD Attending Provider Active Start: September 18, 2024 End: September 18, 2024 Dr. Nicky Covarrubias MD Referring Provider Active Start: September 18, 2024 End: September 18, 2024 Team Status: Inactive Member Role/Relationship Status Dates Dr. Nicky Covarrubias MD Primary Care Provider Active Start: September 25, 2024 End: September 25, 2024 Dr. Nicky Covarrubias MD Attending Provider Active Start: September 25, 2024 End: September 25, 2024 Dr. Nicky Covarrubias MD Referring Provider Active Start: September 25, 2024 End: September 25, 2024 Team Status: Inactive Member Role/Relationship Status Dates Dr. Nicky Covarrubias MD Primary Care Provider Active Start: September 28, 2024 End: September 28, 2024 Dr. Nicky Covarrubias MD Referring Provider Active Start: September 28, 2024 End: September 28, 2024 TETO Kirby Attending Provider Active Start: September 28, 2024 End: September 28, 2024 Team Status: Inactive Member Role/Relationship Status Dates Dr. Nicky Covarrubias MD Primary Care Provider Active Start: September 29, 2024 End: September 29, 2024 SOPHIE KirbyC Attending Provider Active Start: September 29, 2024 End: September 29, 2024 TETO Kirby Referring Provider Active Start: September 29, 2024 End: September 29, 2024 Team Status: Inactive Member Role/Relationship Status Dates Dr. Nicky Covarrubias MD Primary Care Provider Active Start: October 06, 2024 End: October 06, 2024 DESIREE REICH Attending Provider Active Start : October 06, 2024 End: October 06, 2024 Team Status: Inactive Member Role/Relationship Status Dates Dr. Nicky Covarrubias MD Primary Care Provider Active Start: October 16, 2024 End: October 16, 2024 Dr. Nicky Covarrubias MD Attending Provider Active Start: October 16, 2024 End: October 16, 2024 Dr. Nicky Covarrubias MD Referring Provider Active Start: October 16, 2024 End: October 16, 2024 Team Status: Inactive Member Role/Relationship Status Dates Dr. Nicky Covarrubias MD Primary Care Provider Active Start: August 01, 2024 End: August 01, 2024 Dr. Nicky Covarrubias MD Referring Provider Active Start: August 01, 2024 End: August 01, 2024 SOPHIE JassoC Attending Provider Active Start: August 01, 2024 End: August 01, 2024 Team Status: Inactive Member Role/Relationship Status Dates Dr. Nicky Covarrubias MD Primary Care Provider Active Start: August 09, 2024 End: August 09, 2024 SOPHIE JassoC Attending Provider Active Start: August 09, 2024 End: August 09, 2024 TETO Jasso Referring Provider Active Start: August 09, 2024 End: August 09, 2024 Team Status: Inactive Member Role/Relationship Status Dates Dr. Nicky Covarrubias MD Primary Care Provider Active Start: August 23, 2024 End: August 23, 2024 Dr. Nicky Covarrubias MD Attending Provider Active Start: August 23, 2024 End: August 23, 2024 Dr. Nicky Covarrubias MD Referring Provider Active Start: August 23, 2024 End: August 23, 2024 Team Status: Inactive Member Role/Relationship Status Dates Dr. Nicky Covarrubias MD Primary Care Provider Active Start: September 05, 2024 End: September 05, 2024 Zeinab Monique NP-C Attending Provider Active Start: September 05, 2024 End: September 05, 2024 TETO Jasso Referring Provider Active Start: September 05, 2024 End: September 05, 2024 Team Status: Active Member Role/Relationship Status Dates Dr. Nicky Covarrubias MD Primary Care Provider Active Start: September 11, 2024 TETO Jasso Referring Provider Active Start: September 11, 2024 TETO Jasso Other Provider Active St art: September 11, 2024 Dr. Bryce Lo DO Attending Provider Active S tart: September 11, 2024 Team Status: Inactive Member Role/Relationship Status Dates Dr. Nicky Covarrubias MD Primary Care Provider Active Start: September 18, 2024 End: September 18, 2024 Dr. Nicky Covarrubias MD Attending Provider Active Start: September 18, 2024 End: September 18, 2024 Dr. Nicky Covarrubias MD Referring Provider Active Start: September 18, 2024 End: September 18, 2024 Team Status: Inactive Member Role/Relationship Status Dates Dr. Nicky Covarrubias MD Primary Care Provider Active Start: September 25, 2024 End: September 25, 2024 Dr. Nicky Covarrubias MD Attending Provider Active Start: September 25, 2024 End: September 25, 2024 Dr. Nicky Covarrubias MD Referring Provider Active Start: September 25, 2024 End: September 25, 2024 Team Status: Inactive Member Role/Relationship Status Dates Dr. Nicky Covarrubias MD Primary Care Provider Active Start: September 28, 2024 End: September 28, 2024 Dr. Nicky Covarrubias MD Referring Provider Active Start: September 28, 2024 End: September 28, 2024 SOPHIE KirbyC Attending Provider Active Start: September 28, 2024 End: September 28, 2024 Team Status: Inactive Member Role/Relationship Status Dates Dr. Nicky Covarrubias MD Primary Care Provider Active Start: September 29, 2024 End: September 29, 2024 SOPHIE KirbyC Attending Provider Active Start: September 29, 2024 End: September 29, 2024 TETO Kirby Referring Provider Active Start: September 29, 2024 End: September 29, 2024 Team Status: Inactive Member Role/Relationship Status Dates Dr. Nicky Covarrubias MD Primary Care Provider Active Start: October 06, 2024 End: October 06, 2024 DESIREE REICH Attending Provider Active Start : October 06, 2024 End: October 06, 2024 Team Status: Inactive Member Role/Relationship Status Dates Dr. Nicky Covarrubias MD Primary Care Provider Active Start: October 16, 2024 End: October 16, 2024 Dr. Nicky Covarrubias MD Attending Provider Active Start: October 16, 2024 End: October 16, 2024 Dr. Nicky Covarrubias MD Referring Provider Active Start: October 16, 2024 End: October 16, 2024 Team Status: Active Member Role/Relationship Status Dates Dr. Nicky Covarrubias MD Primary Care Provider Active Start: October 31, 2024 SOPHIE JassoC Attending Provider Active Start: October 31, 2024 TETO Jasso Referring Provider Active Start: October 31, 2024 Team Status: Inactive Member Role/Relationship Status Dates Dr. Nicky Covarrubias MD Primary Care Provider Active Start: November 03, 2024 End: November 03, 2024 Dr. Nicky Covarrubias MD Referring Provider Active Start: November 03, 2024 End: November 03, 2024 SOPHIE JassoC Attending Provider Active Start: November 03, 2024 End: November 03, 2024 Team Status: Inactive Member Role/Relationship Status Dates Dr. Nicky Covarrubias MD Primary Care Provider Active Start: October 31, 2024 End: October 31, 2024 TETO Jasso Attending Provider Active Start: October 31, 2024 End: October 31, 2024 TETO Jasso Referring Provider Active Start: October 31, 2024 End: October 31, 2024 Team Status: Active Member Role/Relationship Status Dates Dr. Nicky Covarrubias MD Primary Care Provider Active Start: November 03, 2024 DESIREE LLOYD Attending Provider Active Sta rt: November 03, 2024 Team Status: Active Member Role/Relationship Status Dates Dr. Nicky Covarrubias MD Primary Care Provider Active Start: November 03, 2024 Dr. Nicky Covarrubias MD Attending Provider Active Start: November 03, 2024 Team Status: Inactive Member Role/Relationship Status Dates Dr. Nicky Covarrubias MD Primary Care Provider Active Start: November 03, 2024 End: November 03, 2024 DESIREE LLOYD Attending Provider Active Sta rt: November 03, 2024 End: November 03, 2024 Team Status: Inactive Member Role/Relationship Status Dates Dr. Nicky Covarrubias MD Primary Care Provider Active Start: November 03, 2024 End: November 03, 2024 Dr. Nicky Covarrubias MD Attending Provider Active Start: November 03, 2024 End: November 03, 2024 Team Status: Inactive Member Role/Relationship Status Dates Dr. Nicky Covarrubias MD Primary Care Provider Active Start: September 05, 2024 End: September 05, 2024 TETO Jasso Attending Provider Active Start: September 05, 2024 End: September 05, 2024 TETO Jasso Referring Provider Active Start: September 05, 2024 End: September 05, 2024 Team Status: Active Member Role/Relationship Status Dates Dr. Nicky Covarrubias MD Primary Care Provider Active Start: September 11, 2024 TETO Jasso Referring Provider Active Start: September 11, 2024 TETO Jasso Other Provider Active St art: September 11, 2024 Dr. Bryce Lo DO Attending Provider Active S tart: September 11, 2024 Team Status: Inactive Member Role/Relationship Status Dates Dr. Nicky Covarrubias MD Primary Care Provider Active Start: September 18, 2024 End: September 18, 2024 Dr. Nicky Covarrubias MD Attending Provider Active Start: September 18, 2024 End: September 18, 2024 Dr. Nicky Covarrubias MD Referring Provider Active Start: September 18, 2024 End: September 18, 2024 Team Status: Inactive Member Role/Relationship Status Dates Dr. Nicky Covarrubias MD Primary Care Provider Active Start: September 25, 2024 End: September 25, 2024 Dr. Nicky Covarrubias MD Attending Provider Active Start: September 25, 2024 End: September 25, 2024 Dr. Nicky Covarrubias MD Referring Provider Active Start: September 25, 2024 End: September 25, 2024 Team Status: Inactive Member Role/Relationship Status Dates Dr. Nicky Covarrubias MD Primary Care Provider Active Start: September 28, 2024 End: September 28, 2024 Dr. Nicky Covarrubias MD Referring Provider Active Start: September 28, 2024 End: September 28, 2024 Katey Page ENGINEERING SPECIALIST TECHNICIAN-C Attending Provider Active Start: September 28, 2024 End: September 28, 2024 Team Status: Inactive Member Role/Relationship Status Dates Dr. Nicky Covarrubias MD Primary Care Provider Active Start: September 29, 2024 End: September 29, 2024 Katey Page ENGINEERING SPECIALIST TECHNICIAN-C Attending Provider Active Start: September 29, 2024 End: September 29, 2024 Katey Page ENGINEERING SPECIALIST TECHNICIAN-C Referring Provider Active Start: September 29, 2024 End: September 29, 2024 Team Status: Inactive Member Role/Relationship Status Dates Dr. Nicky Covarrubias MD Primary Care Provider Active Start: October 06, 2024 End: October 06, 2024 DESIREE REICH Attending Provider Active Start : October 06, 2024 End: October 06, 2024 Team Status: Inactive Member Role/Relationship Status Dates Dr. Nicky Covarrubias MD Primary Care Provider Active Start: October 16, 2024 End: October 16, 2024 Dr. Nicky Covarrubias MD Attending Provider Active Start: October 16, 2024 End: October 16, 2024 Dr. Nicky Covarrubias MD Referring Provider Active Start: October 16, 2024 End: October 16, 2024 Team Status: Inactive Member Role/Relationship Status Dates Dr. Nicky Covarrubias MD Primary Care Provider Active Start: October 31, 2024 End: October 31, 2024 TETO Jasso Attending Provider Active Start: October 31, 2024 End: October 31, 2024 TETO Jasso Referring Provider Active Start: October 31, 2024 End: October 31, 2024 Team Status: Inactive Member Role/Relationship Status Dates Dr. Nicky Covarrubias MD Primary Care Provider Active Start: November 03, 2024 End: November 03, 2024 Dr. Nicky Covarrubias MD Referring Provider Active Start: November 03, 2024 End: November 03, 2024 TETO Jasso Attending Provider Active Start: November 03, 2024 End: November 03, 2024 Team Status: Inactive Member Role/Relationship Status Dates Dr. Nicky Covarrubias MD Primary Care Provider Active Start: November 03, 2024 End: November 03, 2024 DESIREE LLOYD Attending Provider Active Sta rt: November 03, 2024 End: November 03, 2024 Team Status: Inactive Member Role/Relationship Status Dates Dr. Nicky Covarrubias MD Primary Care Provider Active Start: November 03, 2024 End: November 03, 2024 Dr. Nicky Covarrubias MD Attending Provider Active Start: November 03, 2024 End: November 03, 2024 Team Status: Inactive Member Role/Relationship Status Dates Dr. Nicky Covarrubias MD Primary Care Provider Active Start: December 27, 2024 End: December 27, 2024 Dr. Nicky Covarrubias MD Attending Provider Active Start: December 27, 2024 End: December 27, 2024 Dr. Nicky Covarrubias MD Referring Provider Active Start: December 27, 2024 End: December 27, 2024 Team Status: Active Member Role/Relationship Status Dates Dr. Nicky Covarrubias MD Primary Care Provider Active Start: December 28, 2024 Dr. Nicky Covarrubias MD Attending Provider Active Start: December 28, 2024 Dr. Nicky Covarrubias MD Referring Provider Active Start: December 28, 2024 Team Status: Active Member Role/Relationship Status Dates Dr. Nicky Covarrubias MD Primary Care Provider Active Start: December 29, 2024 Dr. Nicky Covarrubias MD Attending Provider Active Start: December 29, 2024 Dr. Nicky Covarrubias MD Referring Provider Active Start: December 29, 2024 Team Status: Active Member Role/Relationship Status Dates Dr. Nicky Covarrubias MD Primary Care Provider Active Start: January 01, 2025 Dr. Nicky Covarrubias MD Referring Provider Active Start: January 01, 2025 Dr. Yosi Mtz DO Attending Provider Active Start: January 01, 2025 Team Status: Inactive Member Role/Relationship Status Dates Dr. Nicky Covarrubias MD Primary Care Provider Active Start: January 01, 2025 End: January 01, 2025 Dr. Donavon Marquez MD Attending Provider Active S tart: January 01, 2025 End: January 01, 2025 Team Status: Inactive Member Role/Relationship Status Dates Dr. Nicky Covarrubias MD Primary Care Provider Active Start: January 01, 2025 End: January 01, 2025 Dr. Nicky Covarrubias MD Referring Provider Active Start: January 01, 2025 End: January 01, 2025 Dr. Yosi Mtz DO Attending Provider Active Start: January 01, 2025 End: January 01, 2025 Team Status: Active Member Role/Relationship Status Dates Dr. Nicky Covarrubias MD Primary care physician Activ e Team Status: Inactive Member Role/Relationship Status Dates Dr. Nicky Covarrubias MD Primary care physician Activ e Start: September 18, 2024 End: September 18, 2024 Dr. Nicky Covarrubias MD Attending physician Active Start: September 18, 2024 End: September 18, 2024 Dr. Nicky Covarrubias MD Referring Provider Active Start: September 18, 2024 End: September 18, 2024 Team Status: Inactive Member Role/Relationship Status Dates Dr. Nicky Covarrubias MD Primary care physician Activ e Start: September 25, 2024 End: September 25, 2024 Dr. Nicky Covarrubias MD Attending physician Active Start: September 25, 2024 End: September 25, 2024 Dr. Nicky Covarrubias MD Referring Provider Active Start: September 25, 2024 End: September 25, 2024 Team Status: Inactive Member Role/Relationship Status Dates Dr. Nicky Covarrubias MD Primary care physician Activ e Start: September 28, 2024 End: September 28, 2024 Dr. Nicky Covarrubias MD Referring Provider Active Start: September 28, 2024 End: September 28, 2024 SOPHIE KirbyC Attending physician Active Start: September 28, 2024 End: September 28, 2024 Team Status: Inactive Member Role/Relationship Status Dates Dr. Nicky Covarrubias MD Primary care physician Activ e Start: September 29, 2024 End: September 29, 2024 Katey Page NP-C Attending physician Active Start: September 29, 2024 End: September 29, 2024 SOPHIE KirbyC Referring Provider Active Start: September 29, 2024 End: September 29, 2024 Team Status: Inactive Member Role/Relationship Status Dates Dr. Nicky Covarrubias MD Primary care physician Activ e Start: October 06, 2024 End: October 06, 2024 DESIREE REICH Attending physician Active Star t: October 06, 2024 End: October 06, 2024 Team Status: Inactive Member Role/Relationship Status Dates Dr. Nicky Covarrubias MD Primary care physician Activ e Start: October 16, 2024 End: October 16, 2024 Dr. Nicky Covarrubias MD Attending physician Active Start: October 16, 2024 End: October 16, 2024 Dr. Nicky Covarrubias MD Referring Provider Active Start: October 16, 2024 End: October 16, 2024 Team Status: Inactive Member Role/Relationship Status Dates Dr. Nicky Covarrubias MD Primary care physician Activ e Start: October 31, 2024 End: October 31, 2024 TETO Jasso Attending physician Active Start: October 31, 2024 End: October 31, 2024 TETO Jasso Referring Provider Active Start: October 31, 2024 End: October 31, 2024 Team Status: Inactive Member Role/Relationship Status Dates Dr. Nicky Covarrubias MD Primary care physician Activ e Start: November 03, 2024 End: November 03, 2024 Dr. Nicky Covarrubias MD Referring Provider Active Start: November 03, 2024 End: November 03, 2024 TETO Jasso Attending physician Active Start: November 03, 2024 End: November 03, 2024 Team Status: Inactive Member Role/Relationship Status Dates Dr. Nicky Covarrubias MD Primary care physician Activ e Start: November 03, 2024 End: November 03, 2024 DESIREE LLOYD Attending physician Active St art: November 03, 2024 End: November 03, 2024 Team Status: Inactive Member Role/Relationship Status Dates Dr. Nicky Covarrubias MD Primary care physician Activ e Start: November 03, 2024 End: November 03, 2024 Dr. Nicky Covarrubias MD Attending physician Active Start: November 03, 2024 End: November 03, 2024 Team Status: Inactive Member Role/Relationship Status Dates Dr. Nicky Covarrubias MD Primary care physician Activ e Start: December 27, 2024 End: December 27, 2024 Dr. Nicky Covarrubias MD Attending physician Active Start: December 27, 2024 End: December 27, 2024 Dr. Nicky Covarrubias MD Referring Provider Active Start: December 27, 2024 End: December 27, 2024 Team Status: Inactive Member Role/Relationship Status Dates Dr. Nicky Covarrubias MD Primary care physician Activ e Start: December 28, 2024 End: December 28, 2024 Dr. Nicky Covarrubias MD Attending physician Active Start: December 28, 2024 End: December 28, 2024 Dr. Nicky Covarrubias MD Referring Provider Active Start: December 28, 2024 End: December 28, 2024 Team Status: Inactive Member Role/Relationship Status Dates Dr. Nicky Covarrubias MD Primary care physician Activ e Start: December 29, 2024 End: December 29, 2024 Dr. Nicky Covarrubias MD Attending physician Active Start: December 29, 2024 End: December 29, 2024 Dr. Nicky Covarrubias MD Referring Provider Active Start: December 29, 2024 End: December 29, 2024 Team Status: Inactive Member Role/Relationship Status Dates Dr. Nicky Covarrubias MD Primary care physician Activ e Start: January 01, 2025 End: January 01, 2025 Dr. Nicky Covarrubias MD Referring Provider Active Start: January 01, 2025 End: January 01, 2025 Dr. Yosi Mtz DO Attending physician Active Start: January 01, 2025 End: January 01, 2025 Team Status: Inactive Member Role/Relationship Status Dates Dr. Nicky Covarrubias MD Primary care physician Activ e Start: January 01, 2025 End: January 01, 2025 Dr. Donavon Marquez MD Attending physician Active Start: January 01, 2025 End: January 01, 2025 Team Status: Inactive Member Role/Relationship Status Dates Dr. Nicky Covarrubias MD Primary care physician Activ e Start: January 15, 2025 End: January 15, 2025 Dr. Nicky Covarrubias MD Referring Provider Active Start: January 15, 2025 End: January 15, 2025 Alan TABOR, PA Attending physician Active Start: January 15, 2025 End: January 15, 2025 Team Status: Inactive Member Role/Relationship Status Dates Dr. Nicky Covarrubias MD Primary care physician Activ e Start: September 25, 2024 End: September 25, 2024 Dr. Nicky Covarrubias MD Attending physician Active Start: September 25, 2024 End: September 25, 2024 Dr. Nicky Covarrubias MD Referring Provider Active Start: September 25, 2024 End: September 25, 2024 Team Status: Inactive Member Role/Relationship Status Dates Dr. Nicky Covarrubias MD Primary care physician Activ e Start: September 28, 2024 End: September 28, 2024 Dr. Nicky Covarrubias MD Referring Provider Active Start: September 28, 2024 End: September 28, 2024 Katey Page NP-C Attending physician Active Start: September 28, 2024 End: September 28, 2024 Team Status: Inactive Member Role/Relationship Status Dates Dr. Nicky Covarrubias MD Primary care physician Activ e Start: September 29, 2024 End: September 29, 2024 Katey Page ENGINEERING SPECIALIST TECHNICIAN-C Attending physician Active Start: September 29, 2024 End: September 29, 2024 Katey Page NP-C Referring Provider Active Start: September 29, 2024 End: September 29, 2024 Team Status: Inactive Member Role/Relationship Status Dates Dr. Nicky Covarrubias MD Primary care physician Activ e Start: October 06, 2024 End: October 06, 2024 DESIREE REICH Attending physician Active Star t: October 06, 2024 End: October 06, 2024 Team Status: Inactive Member Role/Relationship Status Dates Dr. Nicky Covarrubias MD Primary care physician Activ e Start: October 16, 2024 End: October 16, 2024 Dr. Nicky Covarrubias MD Attending physician Active Start: October 16, 2024 End: October 16, 2024 Dr. Nicky Covarrubias MD Referring Provider Active Start: October 16, 2024 End: October 16, 2024 Team Status: Inactive Member Role/Relationship Status Dates Dr. Nicky Covarrubias MD Primary care physician Activ e Start: October 31, 2024 End: October 31, 2024 TETO Jasso Attending physician Active Start: October 31, 2024 End: October 31, 2024 TETO Jasso Referring Provider Active Start: October 31, 2024 End: October 31, 2024 Team Status: Inactive Member Role/Relationship Status Dates Dr. Nicky Covarrubias MD Primary care physician Activ e Start: November 03, 2024 End: November 03, 2024 Dr. Nicky Covarrubias MD Referring Provider Active Start: November 03, 2024 End: November 03, 2024 SOPHIE JassoC Attending physician Active Start: November 03, 2024 End: November 03, 2024 Team Status: Inactive Member Role/Relationship Status Dates Dr. Nicky Covarrubias MD Primary care physician Activ e Start: November 03, 2024 End: November 03, 2024 DESIREE LLOYD Attending physician Active St art: November 03, 2024 End: November 03, 2024 Team Status: Inactive Member Role/Relationship Status Dates Dr. Nicky Covarrubias MD Primary care physician Activ e Start: November 03, 2024 End: November 03, 2024 Dr. Nicky Covarrubias MD Attending physician Active Start: November 03, 2024 End: November 03, 2024 Team Status: Inactive Member Role/Relationship Status Dates Dr. Nicky Covarrubias MD Primary care physician Activ e Start: December 27, 2024 End: December 27, 2024 Dr. Nicky Covarrubias MD Attending physician Active Start: December 27, 2024 End: December 27, 2024 Dr. Nicky Covarrubias MD Referring Provider Active Start: December 27, 2024 End: December 27, 2024 Team Status: Inactive Member Role/Relationship Status Dates Dr. Nicky Covarrubias MD Primary care physician Activ e Start: December 28, 2024 End: December 28, 2024 Dr. Nicky Covarrubias MD Attending physician Active Start: December 28, 2024 End: December 28, 2024 Dr. Nicky Covarrubias MD Referring Provider Active Start: December 28, 2024 End: December 28, 2024 Team Status: Inactive Member Role/Relationship Status Dates Dr. Nicky Covarrubias MD Primary care physician Activ e Start: December 29, 2024 End: December 29, 2024 Dr. Nicky Covarrubias MD Attending physician Active Start: December 29, 2024 End: December 29, 2024 Dr. Nicky Covarrubias MD Referring Provider Active Start: December 29, 2024 End: December 29, 2024 Team Status: Inactive Member Role/Relationship Status Dates Dr. Nicky Covarrubias MD Primary care physician Activ e Start: January 01, 2025 End: January 01, 2025 Dr. Nicky Covarrubias MD Referring Provider Active Start: January 01, 2025 End: January 01, 2025 Dr. Yosi Mtz DO Attending physician Active Start: January 01, 2025 End: January 01, 2025 Team Status: Inactive Member Role/Relationship Status Dates Dr. Nicky Covarrubias MD Primary care physician Activ e Start: January 01, 2025 End: January 01, 2025 Dr. Donavon Marquez MD Attending physician Active Start: January 01, 2025 End: January 01, 2025 Team Status: Inactive Member Role/Relationship Status Dates Dr. Nicky Covarrubias MD Primary care physician Activ e Start: January 15, 2025 End: January 15, 2025 Dr. Nicky Covarrubias MD Referring Provider Active Start: January 15, 2025 End: January 15, 2025 Alan Nguyen PA, PA Attending physician Active Start: January 15, 2025 End: January 15, 2025 Team Status: Inactive Member Role/Relationship Status Dates Dr. Nicky Covarrubias MD Primary care physician Activ e Start: January 16, 2025 End: January 16, 2025 Dr. Nicky Covarrubias MD Referring Provider Active Start: January 16, 2025 End: January 16, 2025 TETO Jasso Attending physician Active Start: January 16, 2025 End: January 16, 2025 Team Status: Inactive Member Role/Relationship Status Dates Dr. Nicky Covarrubias MD Primary care physician Activ e Start: October 31, 2024 End: October 31, 2024 TETO Jasso Attending physician Active Start: October 31, 2024 End: October 31, 2024 TETO Jasso Referring Provider Active Start: October 31, 2024 End: October 31, 2024 Team Status: Inactive Member Role/Relationship Status Dates Dr. Nicky Covarrubias MD Primary care physician Activ e Start: November 03, 2024 End: November 03, 2024 Dr. Nicky Covarrubias MD Referring Provider Active Start: November 03, 2024 End: November 03, 2024 TETO Jasso Attending physician Active Start: November 03, 2024 End: November 03, 2024 Team Status: Inactive Member Role/Relationship Status Dates Dr. Nicky Covarrubias MD Primary care physician Activ e Start: November 03, 2024 End: November 03, 2024 DESIREE [place] Attending physician Active St art: November 03, 2024 End: November 03, 2024 Team Status: Inactive Member Role/Relationship Status Dates Dr. Nicky Covarrubias MD Primary care physician Activ e Start: November 03, 2024 End: November 03, 2024 Dr. Nicky Covarrubias MD Attending physician Active Start: November 03, 2024 End: November 03, 2024 Team Status: Inactive Member Role/Relationship Status Dates Dr. Nicky Covarrubias MD Primary care physician Activ e Start: December 27, 2024 End: December 27, 2024 Dr. Nicky Covarrubias MD Attending physician Active Start: December 27, 2024 End: December 27, 2024 Dr. Nicky Covarrubias MD Referring Provider Active Start: December 27, 2024 End: December 27, 2024 Team Status: Inactive Member Role/Relationship Status Dates Dr. Nicky Covarrubias MD Primary care physician Activ e Start: December 28, 2024 End: December 28, 2024 Dr. Nicky Covarrubias MD Attending physician Active Start: December 28, 2024 End: December 28, 2024 Dr. Nicky Covarrubias MD Referring Provider Active Start: December 28, 2024 End: December 28, 2024 Team Status: Inactive Member Role/Relationship Status Dates Dr. Nicky Covarrubias MD Primary care physician Activ e Start: December 29, 2024 End: December 29, 2024 Dr. Nicky Covarrubias MD Attending physician Active Start: December 29, 2024 End: December 29, 2024 Dr. Nicky Covarrubias MD Referring Provider Active Start: December 29, 2024 End: December 29, 2024 Team Status: Inactive Member Role/Relationship Status Dates Dr. Nicky Covarrubias MD Primary care physician Activ e Start: January 01, 2025 End: January 01, 2025 Dr. Nicky Covarrubias MD Referring Provider Active Start: January 01, 2025 End: January 01, 2025 Dr. Yosi Mtz DO Attending physician Active Start: January 01, 2025 End: January 01, 2025 Team Status: Inactive Member Role/Relationship Status Dates Dr. Nicky Covarrubias MD Primary care physician Activ e Start: January 01, 2025 End: January 01, 2025 Dr. Donavon Marquez MD Attending physician Active Start: January 01, 2025 End: January 01, 2025 Team Status: Inactive Member Role/Relationship Status Dates Dr. Nicky Covarrubias MD Primary care physician Activ e Start: January 15, 2025 End: January 15, 2025 Dr. Nicky Covarrubias MD Referring Provider Active Start: January 15, 2025 End: January 15, 2025 Alan TABOR, PA Attending physician Active Start: January 15, 2025 End: January 15, 2025 Team Status: Inactive Member Role/Relationship Status Dates Dr. Nicky Covarrubias MD Primary care physician Activ e Start: January 16, 2025 End: January 16, 2025 Dr. Nicky Covarrubias MD Referring Provider Active Start: January 16, 2025 End: January 16, 2025 Zeinab Monique NP-C Attending physician Active Start: January 16, 2025 End: January 16, 2025 Team Status: Active Member Role/Relationship Status Dates Dr. Nicky Covarrubias MD Primary care physician Activ e Start: January 18, 2025 Dr. Yosi Mtz DO Attending physician Active Start: January 18, 2025 Dr. Yosi Mtz DO Referring Provider Active Start: January 18, 2025 Team Status: Inactive Member Role/Relationship Status Dates Dr. Nicky Covarrubias MD Primary care physician Activ e Start: February 07, 2025 End: February 07, 2025 Dr. Nicky Covarrubias MD Referring Provider Active Start: February 07, 2025 End: February 07, 2025 Clara Lopez NP, NP-C Attending physician Active Start: February 07, 2025 End: February 07, 2025 Team Status: Inactive Member Role/Relationship Status Dates Dr. Nicky Covarrubias MD Primary care physician Activ e Start: February 07, 2025 End: February 07, 2025 Clara Lopez NP, ENGINEERING SPECIALIST TECHNICIAN-C Attending physician Active Start: February 07, 2025 End: February 07, 2025 INFORMATION SOURCE (unrecogn ized section and content) DATE CREATED AUTHOR 02/28/2025 [facility] FOR RECORDS PERTAINING TO PATIENTS WHO [...] BE BASED ON THE PRIMARY CLINICAL RECORDS. [employer] provides no warranty or guarantee of the accuracy or completeness of information in this document.
== END | disposition home or self-care (01) ==
LOC: LAB 10:43
PROVIDERS: PCP Internal Medicine; Referring Provider Nurse Practitioner Family; Visit Provider Nurse Practitioner Family
DX: J44.9 Chronic obstructive pulmonary disease, unspecified (principal)
CPT/HCPCS: 87070; 87205